=== PATIENT | female | born 1945 | race African-American/Black ===

== ENCOUNTER 2016-06-17 20:00 | Inpatient (IN) | payer MEDICARE, MEDICAID ==
[2016-06-17 19:52] VITALS: O2SAT 98
[~2016-06-17 20:00] MED LIST: ACET325 PO; CLON.1 PO; FERR220E PO; KEPP1000 PO; LISI-363 PO; LORA-474 PO; METO50 PO; PLAV75TA PO; POTA20PA PO; PRAV40TA2 PO; RANI150C PO; RISP0.252 PO
[2016-06-17] MEDS ORDERED: SODIUM CHLOR 0.9% 1000 ML INJ 1,000 ML IV ONE (20:05)
[2016-06-17 20:06] VITALS: BP 134/60; PULSE 91; RESP 18; TEMP 98.2; O2SAT 95
--- NOTE | 2016-06-17 20:25 | RADRPT ---
EXAM DATE/TIME: 06/17/2016 20:15 [facility] COMPARISON: No previous studies available for comparison. INDICATIONS : Stroke alert, aphasia today. RADIATION DOSE: 42.33 CTDIvol (mGy) This report was called by Dr. Young to [facility] at 8: 21 PM MEDICAL HISTORY : Stroke. Seizures. Hypertension. SURGICAL HISTORY : Non-responsive. ENCOUNTER: Initial ACUITY: 1 day PAIN SCALE: Non-responsive LOCATION: Bilateral head TECHNIQUE: Multiple contiguous axial images were obtained of the head. Using automated exposure control and adj ustment of the mA and/or kV according to patient size, radiation dose was kept as low as reasonably a chievable to obtain optimal diagnostic quality images. FINDINGS: CEREBRUM: Left middle cerebral artery distribution infarct with encephalomalacia and ex vacuo dilatation of the left lateral ventricle again noted, unchanged. No acute abnormality seen of the right cerebral hemis phere. No evidence of an acute ischemic event. No intracranial hemorrhage or hematoma. No mass or mas s effect. POSTERIOR FOSSA: The cerebellum and brainstem are intact. The 4th ventricle is midline. The cerebellopontine angle i s unremarkable. EXTRACRANIAL: The visualized portion of the orbits is intact. SKULL: The calvaria is intact. No evidence of skull fracture. CONCLUSION: No acute intracranial abnormality. Old left middle cerebral artery distribution infarct. Kye Young MD on June 17, 2016 at 20:21 Board Certified Radiologist. This report was verified electronically.
[2016-06-17 21:04] LABS: AUTOMATED NEUTROPHIL # 6.4 TH/MM3 (1.8-7.7); BASOPHIL # 0.1 TH/MM3 (0-0.2); BASOPHIL % 0.7 % (0.0-2.0); EOSINOPHIL # 0.4 TH/MM3 (0-0.4); EOSINOPHIL % 3.4 % (0.0-4.0); HEMATOCRIT 39.8 % (35.0-46.0); LYMPH % 35.8 % (9.0-44.0); LYMPHOCYTE # 4.3 TH/MM3 (1.0-4.8); MEAN CELL VOLUME 84.2 FL (80.0-100.0); MEAN CORPUSCULAR HEMOGLOBIN 27.2 PG (27.0-34.0); MEAN CORPUSCULAR HGB CONC 32.3 % (32.0-36.0); MONO % 6.7 % (0.0-8.0); NEUT % 53.4 % (16.0-70.0); PLATELET COUNT 90 TH/MM3 (150-450); RED BLOOD COUNT 4.73 MIL/MM3 (4.00-5.30); RED CELL DISTRIBUTION WIDTH 14.7 % (11.6-17.2)
[2016-06-17 21:06] LABS: BACTERIA, URINE RARE /hpf; BLOOD, URINE TRACE (NEG); GLUCOSE,URINE NEG (NEG); HYALINE CAST, URINE 10 /lpf (RARE); KETONE, URINE TRACE mg/dL (NEG); MUCUS URINE FEW /lpf (OCC); NITRITE,URINE NEG (NEG); PH, URINE 5.5 (5.0-8.5); SQUAMOUS EPITHELIAL CELL URINE 1 /hpf (0-5); URINE COLOR YELLOW (YELLW/STRAW)
[2016-06-17 21:09] LABS: AMPHETAMINE, URINE NEG (NEG); BARBITURATES, URINE NEG (NEG); COCAINE, URINE NEG (NEG)
[2016-06-17 21:11] LABS: HEMO FLAGS AUTO DIFF
[2016-06-17] MEDS ORDERED: PIPERACIL-TAZO 4.5 GM PREMIX 100 ML IV STA (21:12)
[2016-06-17 21:15] LABS: I-STAT POTASSIUM 4.7 MMOL/L (3.5-4.9)
[2016-06-17 21:23] VITALS: BP 111/63; PULSE 94; RESP 18; O2SAT 95
[2016-06-17 21:23] LABS: APTT (PATIENT) 22.4 SEC (24.3-30.1); INTERNATIONAL NORMALIZED RATIO 1.1 RATIO; PROTHROMBIN TIME - PATIENT 11.7 SEC (9.8-11.6)
--- NOTE | 2016-06-17 21:25 | PD ---
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 Apparently patient had been seen normal half an hour prior to EMS being called. She was less responsive than usual, left facial droop, not able to follow directions to do a left sided pronator drift. She has not able to give me a further history. Stroke alert was called on scene. Modifying Factors: None Associated Signs & Symptoms: Stroke alert, left facial droop, aphasic, not able to follow directions Risk Factors: Previous stroke PFSH Past Medical History Asthma: Yes Anxiety: Yes Depression: Yes Cancer: Yes (LEFT BREAST) Cardiovascular Problems: Yes Congestive Heart Failure: Yes Cerebrovascular Accident: Yes (INTRACRANIAL BLEED) Diminished Hearing: No Gastrointestinal Disorders: Yes (DYSPHAGIA-- GI BLEED) GERD: Yes Genitourinary: Yes Hypertension: Yes Implanted Vascular Access Dvce: Yes Insomnia: Yes Neurologic: Yes (Intracerebral bleed/Dyshpagia, DEPRESSIVE DISORDER, DYSPHAGIA) Psychiatric: Yes (SCHIZOAFFECTIVE D/O) Respiratory: Yes (Pleural Effusion) Schizophrenia: Yes Seizures: Yes Sleep Apnea: Yes (INSOMNIA W/SLEEP APNEA) Triglycerides - High: Yes ?: Not Menopausal: Yes : 3 Para: 3 Past Surgical History Abdominal Surgery: Yes (PREVIOUS PEG TUBE PLACEMENT) Body Medical Devices: PEG TUBE Pacemaker: No Other Surgery: Yes Social History Alcohol Use: No Tobacco Use: No (UNKNOWN) Substance Use: No Allergies-Medications (Allergen,Severity, Reaction): Coded Allergies: Aspirin (Verified Allergy, Severe, 06/17/16) *MDRO Multi-Drug Resistant Organism (Verified Allergy, Unknown, 06/17/16) MRSA Reported Meds & Prescriptions Reported Meds & Active Scripts Active Review of Systems ROS Limitations: Altered Mental Status, Speech Impaired Physical Exam Narrative GENERAL: Well-nourished, well-developed elderly -[place] female patient with right sided hemiplegia, nonverbal, disoriented SKIN: Warm and dry. HEAD: Normocephalic. Left facial droop notable. EYES: No scleral icterus. No injection or drainage. Pupils are equal, round, small, poorly reactive to light bilaterally. NECK: Supple, trachea midline. CARDIOVASCULAR: Regular rate and rhythm without murmurs, gallops, or rubs. RESPIRATORY: Breath sounds equal bilaterally. No accessory muscle use. GASTROINTESTINAL: Abdomen soft, non-tender, nondistended. MUSCULOSKELETAL: No cyanosis, or edema. BACK: Nontender without obvious deformity. No CVA tenderness. NEUROLOGICAL: Awake and an disoriented. Left facial droop. Not following commands. Data Data Last Documented VS Vital Signs Date Time Temp Pulse Resp B/P Pulse Ox O2 Delivery O2 Flow Rate FiO2 06/17/16 21:23 94 18 111/63 95 Nasal Cannula 2 06/17/16 20:06 98.2 Orders Diet Npo (06/18/16 Breakfast) Activity Bed Rest (06/17/16 ) Electrocardiogram (06/17/16 ) I-Stat Creatinine (06/17/16 20:05) I-Stat Profile (06/17/16 20:05) Prothrombin Time / Inr (Pt) (06/17/16 20:05) Act Partial Throm Time (Ptt) (06/17/16 20:05) Complete Blood Count With Diff (06/17/16 20:05) Fibrinogen (06/17/16 20:05) Creatine Kinase (Cpk) (06/17/16 20:05) Troponin I (06/17/16 20:05) Ua Includes Microscopic (06/17/16 20:05) Drug Screen, Random Urine (06/17/16 20:05) Type And Screen (06/17/16 20:05) Ct Brain W/O Iv Contrast(Rout) (06/17/16 ) Consult Neurology (06/17/16 ) Blood Glucose (06/17/16 20:05) Ecg Monitoring (06/17/16 20:05) Neuro Checks Q2HX12,Q4H (06/17/16 20:05) Nursing Bedside Swallow Assess .ONCE (06/17/16 20:05) Iv Access Insert/Monitor (06/17/16 20:05) NPO (06/17/16 20:05) Oximetry (06/17/16 20:05) Oxygen Administration (06/17/16 20:05) Sodium Chlor 0.9% 1000 Ml Inj (Ns 1000 M (06/17/16 20:05) Resp Oxygen Moe C Titrat 1-4 L (06/17/16 20:05) Cath For Specimen (06/17/16 20:05) (Hub Use Only)Inp Phy Cons/Ref (06/17/16 ) Lactic Acid (06/17/16 21:01) Piperacil-Tazo 4.5 Gm Premix (Zosyn 4.5 (06/17/16 21:12) Blood Culture (06/17/16 21:34) Labs Laboratory Tests Test 06/17/16 06/17/16 20:45 21:00 White Blood Count 12.0 TH/MM3 Red Blood Count 4.73 MIL/MM3 Hemoglobin 12.8 GM/DL Bedside Hemoglobin 13.6 G/DL Hematocrit 39.8 % Bedside Hematocrit 40.0 % Mean Corpuscular Volume 84.2 FL Mean Corpuscular Hemoglobin 27.2 PG Mean Corpuscular Hemoglobin 32.3 % Concent Red Cell Distribution Width 14.7 % Platelet Count 90 TH/MM3 Mean Platelet Volume 12.2 FL Neutrophils (%) (Auto) 53.4 % Lymphocytes (%) (Auto) 35.8 % Monocytes (%) (Auto) 6.7 % Eosinophils (%) (Auto) 3.4 % Basophils (%) (Auto) 0.7 % Neutrophils # (Auto) 6.4 TH/MM3 Lymphocytes # (Auto) 4.3 TH/MM3 Monocytes # (Auto) 0.8 TH/MM3 Eosinophils # (Auto) 0.4 TH/MM3 Basophils # (Auto) 0.1 TH/MM3 CBC Comment AUTO DIFF Differential Comment AUTO DIFF CONFIRMED Platelet Estimate LOW Platelet Morphology Comment NORMAL Prothrombin Time 11.7 SEC Prothromb Time International 1.1 RATIO Ratio Activated Partial 22.4 SEC Thromboplast Time Fibrinogen 324 mg/dL Urine Color YELLOW Urine Turbidity HAZY Urine pH 5.5 Urine Specific [place] 1.019 Urine Protein TRACE mg/dL Urine Glucose (UA) NEG mg/dL Urine Ketones TRACE mg/dL Urine Occult Blood TRACE Urine Nitrite NEG Urine Bilirubin NEG Urine Urobilinogen 2.0 MG/DL Urine Leukocyte Esterase MOD Urine RBC 6 /hpf Urine WBC 9 /hpf Urine WBC Clumps MOD Urine Squamous Epithelial 1 /hpf Cells Urine Bacteria RARE /hpf Urine Hyaline Casts 10 /lpf Urine Mucus FEW /lpf Microscopic Urinalysis Comment Bedside Sodium 166 MMOL/L Bedside Potassium 4.7 MMOL/L Bedside Chloride 132 MMOL/L Bedside Blood Urea Nitrogen 67 MG/DL Bedside Creatinine 4.3 MG/DL Bedside Glucose 97 MG/DL Total Creatine Kinase 173 U/L Troponin I 0.02 NG/ML Urine Opiates Screen NEG Urine Barbiturates Screen NEG Urine Amphetamines Screen NEG Urine Benzodiazepines Screen NEG Urine Cocaine Screen NEG Urine Cannabinoids Screen NEG Lactic Acid Level 2.1 mmol/L MDM Medical Screen Exam Complete: Yes Emergency Medical Condition: Yes Medical Record Reviewed: Yes EKG Prior to Arrival: No Differential Diagnosis Stroke alertcranial bleed versus CVA versus metabolic issues versus dehydration versus sepsis Narrative Course CAT scan was obtained, shows no signs of acute bleed but shows a large left MCA stroke. The findings have been discussed with Dr. Romano who states that based on patient's previous fashioning status, questionable baseline mental status, previous history of GI bleed, and a large stroke to begin with which is old, she is not a good TPA candidate. She has recommended by mouth aspirin with PPIs. However, patient has severe allergies to aspirin and this is documented with family as well. We would have to defer aspirin as well. Plavix was given instead of aspirin due to severe allergy. Patient does have a UTI and cultures were done and IV antibiotics given as a precaution. She has hypernatremia and IV fluids had also been given as part of previous protocol for stroke alert. At this point, my plan would be to admit the patient for further treatment and evaluation. Case is discussed with [facility] hospitalist for admission. Admitted under Dr. Bro's service. Case discussed with ARVIN Wyman. Stroke Alert NIHSS NIH Stroke Scale Result: 37 NIHSS Time Completed: 20:04 Thrombolytic Contraindications Contraindications Comment: Questionable baseline mental status, previous old right MCA stroke. Diagnosis Diagnosis: Primary Impression: CVA (cerebral vascular accident) Additional Impressions: Hypernatremia UTI (urinary tract infection) Admitting Physician Requests: Admit Jacob Sy MD Jun 17, 2016 21:25
[2016-06-17 21:51] LABS: PLATELET ESTIMATE SMEAR LOW (NORMAL); PLATELET MORPHOLOGY NORMAL (NORMAL); SCAN/DIFF AUTO DIFF CONFIRMED
[2016-06-17] MEDS ORDERED: LEVE100S PO (22:27)
[2016-06-17] MEDS ORDERED: HYDR25TA5 PO (22:27)
[2016-06-17] MEDS ORDERED: POTA10SO12 PO (22:27)
[2016-06-17] MEDS ORDERED: METO50TA PO (22:27)
[2016-06-17] MEDS ORDERED: PRAV20TA2 PO (22:27)
[2016-06-17] MEDS ORDERED: LISI-515 PEG (22:27)
[2016-06-17] MEDS ORDERED: LORA-373 PO (22:27)
[2016-06-17] MEDS ORDERED: CLON0.1T PEG (22:27)
[2016-06-17] MEDS ORDERED: LEVE500S PO (22:27)
[2016-06-17] MEDS ORDERED: MIRT1TAB PO (22:27)
[2016-06-17] MEDS ORDERED: TYLE325T PEG (22:27)
[2016-06-17] MEDS ORDERED: CLOPIDOGREL 300 MG TAB PO ONE (22:30)
[2016-06-17 22:31] VITALS: BP 108/55; PULSE 93; RESP 18; O2SAT 95
[2016-06-17] MEDS ORDERED: NALOXONE HCL 0.4 MG/ML AMP IV PRN (23:30)
[2016-06-17] MEDS ORDERED: ONDANSETRON HCL 4 MG/2 ML VIAL IVP PRN (23:30)
[2016-06-17] MEDS ORDERED: BISACODYL 10 MG SUPP PR PRN (23:30)
[2016-06-17] MEDS ORDERED: ACETAMINOPHEN 325 MG TAB PO PRN (23:30)
[2016-06-17] MEDS ORDERED: SENNOSIDES 8.6 MG TAB PO PRN (23:30)
[2016-06-18] VITALS (28 sets, daily range): BP systolic 104–160; BP diastolic 54–92; PULSE 84–108; RESP 13–18; TEMP 97.5–99; O2SAT 96–100
[2016-06-18] MEDS ORDERED: SODIUM CHLORIDE 0.9% FLUSH 5 ML FLUSH IVF PRN (00:30)
[2016-06-18] MEDS ORDERED: ETOMIDATE 20 MG/10 ML VIAL IVP ONE (00:30)
[2016-06-18] MEDS ORDERED: SUCCINYLCHOLINE CHLORIDE 200 MG/10 ML VIAL IVP ONE (00:30)
[2016-06-18] MEDS ORDERED: PROPOFOL 1000 MG/100 ML INJ 100 ML ONE (00:55)
[2016-06-18] MEDS ORDERED: PROPOFOL 1000 MG/100 ML INJ 100 ML IV SCH (01:00)
[2016-06-18] MEDS: PROPOFOL 1000 MG/100 ML INJ 100 ML IV SCH ×2 (01:04→21:01)
--- NOTE | 2016-06-18 01:11 | PD.CONS ---
[facility] Service Critical Care Medicine Consult Requested By Dr. Bro Reason for Consult Acute encephalopathy Possible CVA Acute respiratory failure Primary Care Physician Unknown History of Present Illness 70-year-old female alf patient with previous history of left MCA stroke with right sided hemiparesis, schizoaffective disorder, history of intracranial aneurysmal bleed, hypertension, seizure disorder, liver cirrhosis, dementia, who was brought to the ER today brought in by EMS as a stroke alert. Patient was found less responsive than usual, left facial droop, not able to follow directions. On arrival evaluated by ER physician Dr. Reeves. CT of the head showed no acute findings but large old left MCA stroke. The findings discussed with Dr. Romano who decided that patient is not a good TPA candidate. Patient was started on Plavix due to severe aspirin allergy. UA showed evidence of UTI and cultures were done and IV antibiotics were started in the ED. Lab work showed a white count of 12, lactic acid 2.1, sodium of 166 and a new acute renal failure with BUN 67 and creatinine 4.5. Patient has chronic renal insufficiency with a baseline creatinine highest at 1.3. Initially patient was admitted to [facility]. While in the ER patient' s mental status worsened and patient was intubated for airway protection I evaluated the patient in the ED. Her eyes are spontaneously open but do not follow commands right upper extremity is flaccid and patient has bilateral foot drop moves left upper extremity freely. Acute encephalopathy seems to be metabolic, secondary to her hyponatremia, renal failure and urosepsis Review of Systems ROS Limitations: Intubated Past Family Social History Allergies: Coded Allergies: Aspirin (Verified Allergy, Severe, 06/17/16) *MDRO Multi-Drug Resistant Organism (Verified Allergy, Unknown, 06/17/16) MRSA Past Medical History Brain aneurysm and intracranial bleed in January 2012 Previous left MCA stroke Dementia Chronic right hemiplegia Hypertension History of GI bleed Mastectomy for breast cancer in 2011 Seizure disorder History of CHF Dysphagia with PEG tube placement and subsequent removal Liver cirrhosis per previous notes Schizoaffective disorder Past Surgical History History of brain aneurysm and intracranial bleed Upper endoscopies Mastectomy for breast cancer in 2011 PEG tube placement and subsequent removal Reported Medications Tylenol when necessary Lisinopril Keppra Diazepam Lorazepam Metoprolol Clonidine Pravastatin Hydrochlorothiazide Potassium replacement Active Ordered Medications Reviewed Family History Not contributing to this admission Social History [facility] resident. No alcohol or tobacco use Physical Exam Vital Signs Vital Signs Date Time Temp Pulse Resp B/P Pulse Ox O2 Delivery O2 Flow Rate FiO2 06/18/16 00:41 35 06/18/16 00:40 100 35 06/18/16 00:20 99 15.00 100 06/18/16 00:20 97 21 06/18/16 00:10 91 18 125/60 96 Room Air 06/17/16 22:31 93 18 108/55 95 Nasal Cannula 2 06/17/16 21:23 94 18 111/63 95 Nasal Cannula 2 06/17/16 20:16 100 Nasal Cannula 2 06/17/16 20:06 98.2 91 18 134/60 95 Nasal Cannula 2 06/17/16 19:52 98 2.00 06/17/16 19:52 98 Nasal Cannula 2.00 Physical Exam GENERAL: Well-nourished, well-developed elderly -[place] female patient with right sided hemiplegia, now intubated on propofol SKIN: Warm and dry. HEAD: Normocephalic. EYES: Pupils are equal, round, reactive to light bilaterally. ENT: Orotracheally intubated NECK: Supple, trachea midline. CARDIOVASCULAR: Regular rate and rhythm without murmurs, gallops, or rubs. RESPIRATORY: Breath sounds equal bilaterally. No accessory muscle use. GASTROINTESTINAL: Abdomen soft, non-tender, nondistended. MUSCULOSKELETAL: No cyanosis, or edema. Bilateral foot drop NEUROLOGICAL: Intubated sedated with propofol. Eyes open spontaneously. Do not follow commands. Spontaneously moving left upper extremity, flaccid right upper extremity. Bilateral foot drop but withdraws to pain Laboratory Laboratory Tests Test 06/17/16 06/17/16 20:45 21:00 White Blood Count 12.0 Red Blood Count 4.73 Hemoglobin 12.8 Bedside Hemoglobin 13.6 Hematocrit 39.8 Bedside Hematocrit 40.0 Mean Corpuscular Volume 84.2 Mean Corpuscular Hemoglobin 27.2 Mean Corpuscular Hemoglobin 32.3 Concent Red Cell Distribution Width 14.7 Platelet Count 90 Mean Platelet Volume 12.2 Neutrophils (%) (Auto) 53.4 Lymphocytes (%) (Auto) 35.8 Monocytes (%) (Auto) 6.7 Eosinophils (%) (Auto) 3.4 Basophils (%) (Auto) 0.7 Neutrophils # (Auto) 6.4 Lymphocytes # (Auto) 4.3 Monocytes # (Auto) 0.8 Eosinophils # (Auto) 0.4 Basophils # (Auto) 0.1 CBC Comment AUTO DIFF Differential Comment AUTO DIFF CONFIRMED Platelet Estimate LOW Platelet Morphology Comment NORMAL Prothrombin Time 11.7 Prothromb Time International 1.1 Ratio Activated Partial 22.4 Thromboplast Time Fibrinogen 324 Urine Color YELLOW Urine Turbidity HAZY Urine pH 5.5 Urine Specific [place] 1.019 Urine Protein TRACE Urine Glucose (UA) NEG Urine Ketones TRACE Urine Occult Blood TRACE Urine Nitrite NEG Urine Bilirubin NEG Urine Urobilinogen 2.0 Urine Leukocyte Esterase MOD Urine RBC 6 Urine WBC 9 Urine WBC Clumps MOD Urine Squamous Epithelial 1 Cells Urine Bacteria RARE Urine Hyaline Casts 10 Urine Mucus FEW Microscopic Urinalysis Comment Bedside Sodium 166 Bedside Potassium 4.7 Bedside Chloride 132 Bedside Blood Urea Nitrogen 67 Bedside Creatinine 4.3 Bedside Glucose 97 Total Creatine Kinase 173 Troponin I 0.02 Urine Opiates Screen NEG Urine Barbiturates Screen NEG Urine Amphetamines Screen NEG Urine Benzodiazepines Screen NEG Urine Cocaine Screen NEG Urine Cannabinoids Screen NEG Lactic Acid Level 2.1 Blood Type O POSITIVE Antibody Screen NEGATIVE Date/Time Procedure Status Source Growth 06/17/16 21:00 Aerobic Blood Culture Received Blood Peripheral Pending 06/17/16 21:00 Anaerobic Blood Culture Received Blood Peripheral Pending Result Diagram: 06/17/162044 Imaging CT head shows an old MCA stroke Septic Shock Reassessment Heart: Other (tachycardic) Lungs: Clear Skin: Warm, Dry Peripheral Pulses: Bounding Right Radial Bounding Left Radial Assessment and Plan Assessment and Plan NEURO: Acute metabolic encephalopathy Probable acute stroke History of left MCA stroke with right hemiparesis History of intracranial aneurysm and bleed Seizure disorder -CT of the head negative for acute findings, check MRI of the brain -Check EEG, continue Keppra -Metabolic encephalopathy most likely secondary to hypernatremia and sepsis, but differential also include CVA versus subclinical seizures -Plavix started as the patient is allergic to aspirin RESP: Acute respiratory failure -Intubated for airway protection -Assist control mechanical ventilation, ventilator bundle -DuoNeb every 6 hours when necessary -Broad spectrum antibiotics with cefepime and Flagyl to cover for aspiration CV: History of hypertension -Hold home hypertensive medications lisinopril metoprolol and clonidine at this time -Due to possible acute stroke, keep systolic blood pressure >160 -D5W 2 L bolus and 150 ML per hour GI: History of GI bleed History of Lorraine-Jaimes tear Liver cirrhosis -Nothing by mouth, start tube feeds in 24 hours -IV Protonix, Colace : Acute kidney failure Chronic kidney insufficiency Hypernatremia -Monitor renal function closely. Place Rosales catheter. -D5W 2 L bolus and 150 ML per hour -Free water replacement 300 mL every 6 hours -Renal US ID: Sepsis UTI -Empiric cefepime and Flagyl -Follow up on blood urine and sputum cultures HEME: Mild thrombocytopenia -Monitor CBC, CMP, coags ENDO: Hypernatremia -Electrolyte replacement protocol, sliding scale insulin if needed -Free water replacement as above PROPH: -Bilateral lower extremity SCDs. IV Protonix, subcutaneous heparin LINES: -Utilize peripheral IVs, central line if needed CC time 60 min Code Status Full Discussed Condition With Daquan Brandt MD Jun 18, 2016 01:11
[2016-06-18] MEDS ORDERED: RESP: ALBUTEROL 2.5 MG/IPRATROPIUM 0.5 MG NEB (PRN) NEB (01:15)
[2016-06-18] MEDS: PANTOPRAZOLE SODIUM 40 MG VIAL IV PUSH SCH (01:34)
--- NOTE | 2016-06-18 01:40 | RADRPT ---
EXAM DATE/TIME: 06/18/2016 01:19 [facility] COMPARISON: CHEST SINGLE AP, February 01, 2013, 2:58. INDICATIONS : Post intubation. MEDICAL HISTORY : None. SURGICAL HISTORY : None. ENCOUNTER: Initial ACUITY: 1 day PAIN SCORE: Non-responsive. LOCATION: Bilateral chest FINDINGS: ET tube, NG tube, and right subclavian [id number] are in good position. The heart size is normal. The lungs are grossly clear. Clips are seen in the left axillary region. Old left rib fractures are s een. CONCLUSION: ET tube in good position. Kye Montiel MD on June 18, 2016 at 1:37 Board Certified Radiologist. This report was verified electronically.
[2016-06-18] MEDS ORDERED: DEXTROSE 5% IN WATE 1000ML INJ 1,000 ML IV ONE (02:15)
[2016-06-18] MEDS: PIPERACIL-TAZO 3.375 GM PREMIX 50 ML IV SCH ×4 (03:00→21:01)
[2016-06-18 03:35] LABS: AUTOMATED NEUTROPHIL # 6.4 TH/MM3 (1.8-7.7); BASOPHIL # 0.1 TH/MM3 (0-0.2); BASOPHIL % 0.7 % (0.0-2.0); EOSINOPHIL # 0.5 TH/MM3 (0-0.4); EOSINOPHIL % 3.8 % (0.0-4.0); HEMATOCRIT 38.8 % (35.0-46.0); LYMPH % 39.2 % (9.0-44.0); LYMPHOCYTE # 4.8 TH/MM3 (1.0-4.8); MEAN CORPUSCULAR HGB CONC 32.9 % (32.0-36.0); MONO % 4.6 % (0.0-8.0); NEUT % 51.7 % (16.0-70.0); PLATELET COUNT 83 TH/MM3 (150-450); RED BLOOD COUNT 4.57 MIL/MM3 (4.00-5.30); WHITE BLOOD COUNT 12.3 TH/MM3 (4.0-11.0)
[2016-06-18 03:36] LABS: HEMO FLAGS AUTO DIFF
--- NOTE | 2016-06-18 03:44 | RADRPT ---
EXAM DATE/TIME: 06/18/2016 02:28 [facility] COMPARISON: CT BRAIN W/O CONTRAST, February 01, 2013, 3:09. CT BRAIN W/O CONTRAST, June 17, 2016, 20:15. MRI BRAIN W/O CONTRAST, February 03, 2012, 11:22. INDICATIONS : Altered mental status. Stroke alert MEDICAL HISTORY : Large left MCA stroke previously SURGICAL HISTORY : None. ENCOUNTER: ACUITY: 1 day PAIN SCORE: 0/10 LOCATION: cranial TECHNIQUE: Multiplanar, multisequence MRI of the brain was performed without contrast. FINDINGS: CEREBRUM: The left lateral ventricle is very prominently expanded. There is increased signal seen throughout th e left frontal, left parietal, and much of the left temporal lobe on the flair and T2-weighted images . There is extensive encephalomalacia on the left side especially in the parietal lobe. There is mild increased signal at the left temporal lobe on the diffusion weighted images likely related to T2 maricel ne through phenomenon.. An acute infarction is not clearly seen. No evidence of midline shift, mass l esion, hemorrhage or acute infarction. There is increased signal in the right periventricular white m atter likely related to underlying small vessel ischemic demyelination. No extraaxial fluid collectio ns are seen. There are several focal areas of low signal seen throughout the cerebral hemispheres bi laterally on the SWI images which may represent prior areas of hemorrhage. A prominent area of increa sed signal in the left parietal lobe is likely related to the prior infarct and old petechial hemorrh age. The more focal areas may relate to underlying lesions such as angiomas. An acute area of hemorrh age is not present. The pituitary gland and suprasellar cistern are normal in configuration. POSTERIOR FOSSA: The cerebellum and brainstem are intact. The 4th ventricle is midline. The cerebellopontine angle is unremarkable. The cerebellar tonsils are normal in position. DIFFUSION IMAGING: No focal areas of restricted diffusion are seen. No evidence of acute infarction. EXTRACRANIAL: The visualized portions of the orbits and paranasal sinuses are unremarkable. CONCLUSION: 1. Widespread encephalomalacia throughout the left cerebral hemisphere. An area of acute infarction i s not clearly seen. There is very prominent expansion of the left lateral ventricle. 2. Suspected underlying small vessel ischemic change in the white matter on the right hemisphere. 3. Areas of signal abnormality on the SWI images related to prior areas of hemorrhage. No acute hemor rhage is seen. Kye Montiel MD on June 18, 2016 at 3:36 Board Certified Radiologist. This report was verified electronically.
--- NOTE | 2016-06-18 03:45 | RADRPT ---
EXAM DATE/TIME: 06/18/2016 02:28 [facility] COMPARISON: No previous studies available for comparison. INDICATIONS : Altered mental status. Stroke alert. MEDICAL HISTORY : Large left MCA stroke previously SURGICAL HISTORY : None. ENCOUNTER: Initial ACUITY: 1 day PAIN SCORE: 0/10 LOCATION: cranial Please note a normal MRA of the brain does not entirely exclude the possibility of a small aneurysm, nor the possibility of distal intracranial vessel disease. TECHNIQUE: 3D time of flight MRA was performed. Source images, multiplanar STS MIP, and 3D volume MIP reconstru ctions were reviewed. FINDINGS: There is excellent visualization of the major intracranial arteries out to the second-order branch ve ssels. There is no evidence for aneurysm, vessel truncation or stenosis, and no evidence for vascula r malformation. There is diminished flow in the left middle cerebral artery distribution seen at the M2 level and beyond. CONCLUSION: No acute areas of occlusion. There is asymmetric and diminished flow in the more distal left middle c erebral artery territory. Kye Montiel MD on June 18, 2016 at 3:43 Board Certified Radiologist. This report was verified electronically.
[2016-06-18] MEDS: metroNIDAZOLE 500 MG INJ 100 ML IV SCH ×3 (03:50→17:19)
[2016-06-18] MEDS ORDERED: CEFEPIME INJ 2,000 MG in SODIUM CHLORIDE 0.9% INJ 100 ML IV SCH ×4 (04:00)
[2016-06-18 04:22] LABS: PLATELET ESTIMATE SMEAR LOW (NORMAL); SCAN/DIFF AUTO DIFF CONFIRMED
[2016-06-18 04:23] LABS: PLATELET MORPHOLOGY ENLARGED (NORMAL)
[2016-06-18 04:32] LABS: ALKALINE PHOSPHATASE 76 U/L (45-117); ALT (GPT) 28 U/L (10-53); ANION GAP 10 MEQ/L (5-15); BICARBONATE 23.7 MEQ/L (21.0-32.0); CHLORIDE 123 MEQ/L (98-107); GLOMERULAR FILTRATION RATE 13 ML/MIN (>89); TOTAL BILIRUBIN ADULT 1.3 MG/DL (0.2-1.0)
[2016-06-18 04:50] LABS: BLOOD GAS BASE EXCESS -3.1 mmol/L (-2-2); BLOOD GAS CARBOXYHEMOGLOBIN 1.8 % (0-4); BLOOD GAS HCO3 20 mmol/L (22-26); BLOOD GAS METHEMOGLOBIN 2.4 % (0-2); BLOOD GAS O2 HGB SATURATION 95 % (90-100); BLOOD GAS OXYGEN CONTENT 17.4 Vol % (12.0-20.0); BLOOD GAS PCO2 26 mmHg (38-42); BLOOD GAS PO2 123 mmHG (61-120); BLOOD GAS TOTAL HGB 12.9 G/DL (12.0-16.0); CRITICAL VALUE NO; OXYGEN DEVICE VENTILATOR; TEMP CORR TO 98.6
[2016-06-18 04:51] LABS: DRAW SITE LT RADIAL; FIO2 35 %; NUMBER OF ARTERIAL PUNCTURES 1; STAT NO; ULNAR PULSE PRESENT; VENT SETTINGS VAC16/500/PEEP5
[2016-06-18 04:56] LABS: BLOOD UREA NITROGEN 69 MG/DL (7-18)
[2016-06-18 04:58] LABS: AST (GOT) 48 U/L (15-37); POTASSIUM 4.7 MEQ/L (3.5-5.1)
[2016-06-18 04:59] LABS: SODIUM (NA) 157 MEQ/L (136-145)
[2016-06-18] MEDS: DEXTROSE 5% IN WATE 1000ML INJ 1,000 ML IV SCH ×4 (05:50→21:02)
[2016-06-18] MEDS: FREE WATER OG SCH ×3 (05:50→17:19)
[2016-06-18] MEDS ORDERED: CHLORHEXIDINE GLUCONATE 2 % 1 PACK (2 CLOTHS)(extra cloths) TOP PRN (06:30)
[2016-06-18] MEDS: CHLORHEXIDINE 0.12% (ORAL KIT) 15 ML CUP MT SCH ×2 (08:00→21:01)
[2016-06-18] MEDS: DOCUSATE SODIUM 100 MG/10 ML UDC PO SCH ×2 (09:00→21:01)
[2016-06-18] MEDS: SODIUM CHLORIDE 0.9% FLUSH 5 ML FLUSH FLUSH SCH ×2 (09:00→21:00)
[2016-06-18] MEDS: PRAVASTATIN SOD 20 MG TAB PO SCH (09:00)
[2016-06-18] MEDS ORDERED: levETIRAcetam 500 MG/5 ML UDC PO SCH ×2 (09:00→21:00)
[2016-06-18] MEDS: LACTULOSE SYRUP 20 GM/30 ML CUP PO SCH ×2 (09:15→21:01)
--- NOTE | 2016-06-18 09:16 | RADRPT ---
EXAM DATE/TIME: 06/18/2016 07:56 [facility] COMPARISON: No previous studies available for comparison. INDICATIONS : Cerebrovascular accident. MEDICAL HISTORY : Cerebrovascular disease. Hypercholesterolemia. Gastroesophageal reflux disease. Intracranial bleed. Dyshpagia. Seizures. Congestive heart failure. Hypertension. Pleural effusion. Asthma. Sleep apnea. I nflammatory bowel disease. Cirrhosis. Left breast cancer. MRSA. SURGICAL HISTORY : Peg tube placement. Left breast mastoectomy. ENCOUNTER: Initial ACUITY: 1 day PAIN SCORE: Nonresponsive. LOCATION: Bilateral neck PEAK SYSTOLIC VELOCITIES (cm/sec): ICA/CCA RATIO: Right: 1.3 Left: 0.7 ICA: Right: 96 Left: 59 CCA: Right: 74 Left: 82 ECA: Right: 55 Left: 86 VERTEBRAL: Right: 39 antegrade Left: 92 antegrade Elevated flow velocities and ICA/CCA ratios have been found to correlate with increased degrees of vessel stenosis, calculated as percentage of diameter relative to a normal segment of distal ICA/CCA FINDINGS: RIGHT CAROTID: Severe plaque in the proximal right ICA. The waveforms are within normal limits. LEFT CAROTID: No significant stenosis is visualized. [id number] plaque. The waveforms are within normal limi ts. VERTEBRAL ARTERIES: Antegrade flow is seen in both vertebral arteries. MISCELLANEOUS: None. CONCLUSION: 1. Severe plaque in the right proximal right internal carotid artery but no hemodynamically significa nt stenosis identified. May consider a carotid CTA to ensure no significant stenosis. 2. No significant stenosis in the left carotid artery. Gideon De La Fuente MD on June 18, 2016 at 9:11 Board Certified Radiologist. This report was verified electronically.
--- NOTE | 2016-06-18 09:18 | RADRPT ---
EXAM DATE/TIME: 06/18/2016 08:15 [place] COMPARISON: No previous studies available for comparison. INDICATIONS : Increased BUN/Creatinine. MEDICAL HISTORY : Cerebrovascular disease. Gastroesophageal reflux disease. Hypercholesterolemia. Intracranial bleed. Dyshpagia. Seizures. Congestive heart failure. Hypertension. Pleural effusion. Asthma. Sleep apnea. I nflammatory bowel disease. Cirrhosis. Left breast cancer. MRSA. SURGICAL HISTORY : Peg tube placement. Left mastectomy. ENCOUNTER: Initial ACUITY: 1 day PAIN SCORE: Nonresponsive. LOCATION: Bilateral flank MEASUREMENTS: RIGHT KIDNEY: 8.8 x 3.2 x 3.6 cm LEFT KIDNEY: 9.6 x 5.5 x 4.8 cm FINDINGS: RIGHT KIDNEY: Renal cortex is thinned in thickness and increased echotexture. No hydronephrosis, stone, or mass. LEFT KIDNEY: Renal cortex is normal in thickness and increased echotexture. No hydronephrosis, stone, or mass. BLADDER: Decompressed by Roasles catheter. CONCLUSION: 1. Increased echogenicity which can be seen with medical renal disease. Right kidney is slightly smal l in size. 2. Urinary bladder is decompressed by Rosales catheter. Gideon De La Fuente MD on June 18, 2016 at 9:16 Board Certified Radiologist. This report was verified electronically.
--- NOTE | 2016-06-18 09:23 | HHI.CCPN ---
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 Patient was found less responsive than usual, left facial droop, not able to follow directions. On arrival evaluated by ER physician Dr. Reeves. CT of the head showed no acute findings but large old left MCA stroke. The findings discussed with Dr. Romano who decided that patient is not a good TPA candidate. Patient was started on Plavix due to severe aspirin allergy. UA showed evidence of UTI and cultures were done and IV antibiotics were started in the ED. Lab work showed a white count of 12, lactic acid 2.1, sodium of 166 and a new acute renal failure with BUN 67 and creatinine 4.5. Patient has chronic renal insufficiency with a baseline creatinine highest at 1.3. Initially patient was admitted to [facility]. While in the ER patient' s mental status worsened and patient was intubated for airway protection I evaluated the patient in the ED. Her eyes are spontaneously open but do not follow commands right upper extremity is flaccid and patient has bilateral foot drop moves left upper extremity freely. Acute encephalopathy seems to be metabolic, secondary to her hyponatremia, renal failure and urosepsis Subjective 06/18: Afebrile. Arousable on the ventilator currently receiving peripheral IVs. Rosales placed with adequate urine output Objective Vital Signs Date Time Temp Pulse Resp B/P Pulse Ox O2 Delivery O2 Flow Rate FiO2 06/18/16 08:15 100 35 06/18/16 06:00 108 06/18/16 05:43 99.0 13 132/69 06/18/16 05:02 Room Air 06/18/16 00:20 15.00 Result Diagram: 06/18/16 0321 06/18/16 0321 Other Results Microbiology Date/Time Procedure Status Source Growth 06/17/16 21:00 Aerobic Blood Culture Received Blood Peripheral Pending 06/17/16 21:00 Anaerobic Blood Culture Received Blood Peripheral Pending 06/17/16 20:45 Urine Culture Received Urine Catheterized Urine Pending Imaging Last Impressions Brain MRI 06/18/16 0102 Signed Impressions: Service Date/Time: Saturday, June 18, 2016 02:28 - CONCLUSION: 1. Widespread encephalomalacia throughout the left cerebral hemisphere. An area of acute infarction is not clearly seen. There is very prominent expansion of the left lateral ventricle. 2. Suspected underlying small vessel ischemic change in the white matter on the right hemisphere. 3. Areas of signal abnormality on the SWI images related to prior areas of hemorrhage. No acute hemorrhage is seen. Kye Montiel MD Chest X-Ray 06/18/16 0044 Signed Impressions: Service Date/Time: Saturday, June 18, 2016 01:19 - CONCLUSION: ET tube in good position. Kye Montiel MD Head Magnetic Resonance Angiography 06/18/16 0000 Signed Impressions: Service Date/Time: Saturday, June 18, 2016 02:28 - CONCLUSION: No acute areas of occlusion. There is asymmetric and diminished flow in the more distal left middle cerebral artery territory. Kye Montiel MD Head CT 06/17/16 0000 Signed Impressions: Service Date/Time: Friday, June 17, 2016 20:15 - CONCLUSION: No acute intracranial abnormality. Old left middle cerebral artery distribution infarct. Kye Young MD Objective Remarks GENERAL: 70-year-old well-nourished, well-developed elderly -Iraqi female patient with right sided hemiplegia SKIN: Warm and dry. No rash HEAD: Normocephalic. EYES: Pupils are equal, round, reactive to light bilaterally around 3 mm. ENT: Orotracheally intubated NECK: Supple, trachea midline. CARDIOVASCULAR: Regular rate and rhythm S1, S2. No S4. Without murmurs, gallops, or rubs. RESPIRATORY: Breath sounds equal bilaterally. No accessory muscle use. GASTROINTESTINAL: Abdomen soft, non-tender, nondistended. Hypoactive bowel sounds MUSCULOSKELETAL: No new skin peripheral edema. Bilateral foot drop NEUROLOGICAL: Intubated sedated with propofol. Eyes open spontaneously. Do not follow commands. Spontaneously moving left upper extremity, flaccid right upper extremity. Bilateral foot drop but withdraws to pain A/P Assessment and Plan NEURO/PSYCH: Acute metabolic encephalopathy Probable acute stroke History of left MCA stroke with right hemiparesis History of intracranial aneurysm and bleed Seizure disorder Dementia disorder NOS Schizoaffective disorder History bilateral foot drop Depression -CT of the head negative for acute findings, - MRI of the brain revealed extensive encephalomalacia left side including the frontal, parietal and temporal regions. No signs of acute CVA. MRA brain showedno focal signs of stenosis but decreased blood flow in the left MCA distribution -Check EEG, -continue Keppra 250 twice a day with 500 mg at night/home dosage -Metabolic encephalopathy most likely secondary to hypernatremia and sepsis, but differential also include CVA versus subclinical seizures -Plavix 75 mg daily started as the patient is allergic to aspirin RESP: Acute respiratory failure History of a sore sleep apnea -Assist control mechanical ventilation / -Ventilator bundle -DuoNeb every 6 hours when necessary -Spontaneous breathing trials daily -Broad spectrum antibiotics with Zosyn and Flagyl to cover for aspiration CV: Right proximal internal carotid artery plaque not hemodynamic significant Recommended CTA neck when appropriate Atherosclerotic vascular disease History of hypertension Dyslipidemia Chronic diastolic heart failure ejection fraction 55% 2012 -Hold home hypertensive medications lisinopril 20 mg twice a day and clonidine 0.1 mg twice a day at this time Lopressor 2.5 IV every 6/on metoprolol 100 mg twice a day at home. -Due to possible acute stroke, goal ideally keep systolic blood pressure >160 -D5W 2 L bolus and 150 ML per hour Continue pravastatin at 20 mg by mouth daily GI: History of GI bleed History of Lorraine-Jaimes tear Liver cirrhosis Hypoalbuminemia Gastro-Esophageal reflux disease Hiatal hernia History of esophagitis Elevated ammonia -Nothing by mouth, start tube feeds in 24 hours -IV Protonix, Colace Lactulose 3 cc twice a day. Recheck in a.m. RENAL//FEN: Acute kidney failure Chronic kidney insufficiency baseline creatinine about 1.1 Hypernatremia -Monitor renal function closely. Place Rosales catheter. -D5W 2 L bolus and 150 ML per hour -Free water replacement 300 mL every 6 hours -Renal US revealed medical renal disease right kidney. Normal left kidney. No hydronephrosis. -Urine electrolyte/eosinophils pending ID: Sepsis UTI -Empiric Zosyn and Flagyl a #2 -Follow up on blood urine and blood cultures HEME: Mild thrombocytopenia Leukocytosis -Monitor CBC, CMP, coags ENDO: Hypernatremia - likely medication Low TSH -Electrolyte replacement protocol, sliding scale insulin if needed -Free water replacement as above -Check urine and serum osmolality for hyponatremia Check free T3 and T4 for low TSH PROPH: -Bilateral lower extremity SCDs. IV Protonix, subcutaneous heparin LINES: -Utilize peripheral IVs, central line if needed Critical Care: The total critical care time was 35 minutes. Time to perform other separately billable procedures was not included in the critical care time. Hosea Gonzalez MD Jun 18, 2016 09:23
[2016-06-18] MEDS: METOPROLOL TARTRATE 5 MG/5 ML VIAL IV PUSH SCH ×3 (10:51→21:02)
[2016-06-18] MEDS: HEPARIN SODIUM - SQ 10,000 UNITS/ML VIAL SQ SCH ×2 (10:51)
[2016-06-18] MEDS: CLOPIDOGREL 75 MG TAB PO SCH (10:52)
--- NOTE | 2016-06-18 12:15 | MB ---
cc: BENI GRIFFITH DATE OF CONSULTATION 06/18/2016 REASON FOR CONSULTATION Stroke alert/encephalopathy/TIA. HISTORY OF PRESENT ILLNESS Ms. Childress is a 70-year-old -Algerian female who [facility] prison with a previous history of left MCA ischemic stroke and residual right-sided hemiparesis, schizoaffective disorder, history of intracranial aneurysmal bleed, hypertension, seizure disorder, liver cirrhosis, dementia. During the encounter the patient is sedated and intubated, hence the medical information is obtained from the medical records. She was brought to the ER yesterday night as a Stroke Alert. The patient was found in the prison less responsive than usual with a left-sided facial droop and not able to follow any direction. Upon arrival to the ER, head CT without contrast did showed no acute intracranial findings but large old left MCA infarct. Dr. Romano, who was education managers last night, decided that the patient is not a good IV t-PA candidate.The patient was started on Plavix due to SEVERE ASPIRIN ALLERGY. On review of the lab work, UA showed evidence of UTI. IV antibiotics started. White blood cells 12, lactic acid 2.1. Sodium was elevated at 166, today is 157; BUN 69, creatinine 4.09. Urine tox was negative. During the encounter the patient was intubated and sedated. REVIEW OF SYSTEMS Unable to obtain. The patient is intubated. PAST MEDICAL HISTORY As per medical records - 1. Brain aneurysm with intracranial bleed in 2011. 2. Previous left MCA ischemic stroke. 3. Dementia. 4. Hypertension. 5. History of GI bleed. 6. Mastectomy for breast cancer in 2011. 7. Seizure disorder. 8. History of congestive heart failure. 9. Dysphagia with PEG tube and subsequent removal. 10. Liver cirrhosis. 11. Schizoaffective disorder. PAST SURGICAL HISTORY As per medical records - 1. Brain aneurysm, intracranial bleed. 2. Endoscopies. 3. Mastectomy for breast cancer in 1011. 4. PEG tube and subsequently removal. MEDICATIONS 1. Tylenol. 2. Lisinopril. 3. Keppra. 4. Diazepam. 5. Lorazepam. 6. Metoprolol. 7. Clonidine. 8. Pravastatin. 9. Hydrochlorothiazide. 10. Potassium. FAMILY HISTORY Unable to obtain. SOCIAL HISTORY correction resident. As per records, no alcohol or tobacco use. PHYSICAL EXAMINATION GENERAL: The patient is intubated and sedated. A well-developed -Algerian patient HEENT: Atraumatic, normocephalic. Pupils are pink, bilaterally equal to light. CARDIOVASCULAR: Regular rhythm and rate. No murmurs. RESPIRATORY: Bilaterally equal breath sounds. No wheezes. MUSCULOSKELETAL: No cyanosis or edema. Bilateral foot drop with flexion contractures. NEUROLOGICAL: Intubated and sedated. Pupils are bilaterally 3 mm, reacting briskly to light. No gaze deviation. Bilateral foot drop with flexion contracture, left greater than the right. Plantars are bilaterally downgoing. No response to verbal commands or painful commands.No spontaneous eye opening. LABORATORY DATA WBC 12.3, hemoglobin 12.8, platelets 83. Urine toxicology negative. Serum sodium 157, chloride 123, BUN 69, creatinine 409, lactic acid 2.1, calcium 7.9, albumin 2.9.TSH 0.02. Urine positive for ketones, occult blood, leukocyte esterase, RBCs, white blood cells, rare bacteria. DIAGNOSTIC IMAGING - Head CT scan without contrast with no acute intracranial abnormality. Old left MCA distribution infarct. - Brain MRI with widespread encephalomalacia throughout the left cerebral hemisphere. An area of acute infarction is not clearly seen. There is very prominent expansion of the left lateral ventricle, suspected underlying small vessel ischemic change in white matter in the right hemisphere, areas of signal abnormality on the SWI images related to prior areas of hemorrhage. No acute hemorrhage is seen. - Head MRA - No acute areas of occlusion. There is asymmetric and diminished flow in the more distal left MCA. - Carotid Ultrasound - There is severe plaque in the proximal right ICA but no hemodynamically significant stenosis. May consider carotid CTA to ensure no significant stenosis. No significant stenosis of the left ICA. DIAGNOSTIC IMPRESSION 1. Acute encephalopathy. 2. Remote history of left MCA stroke with residual right-sided weakness. 3. Remote bilateral foot drop. 4. History of intracranial aneurysm and bleed. 5. Seizure disorder. 6. Dementia. 7. Right ICA stenosis. PLAN 1. Neuro checks q. one hourly. 2. Plavix 75 mg daily. 3. EEG. 4. Keppra level. 5. Continue Keppra home dose at 250 morning and 750 at night. I will review the dose and may adjust it based on the Keppra level and EEG findings. 6. SCD prophylaxis. 7. GI prophylaxis. 8. Correction of hypernatremia. Thank you for the opportunity to participate in the care of your patient. Beni Griffith MD RGO/SSB /9:21 AM /12:01 PM [facility]
--- NOTE | 2016-06-18 15:33 | MH ---
cc: SERJIO PEARL MD DATE OF ADMISSION: 06/17/2016 DATE OF : 1945 REASON FOR ADMISSION Possible stroke, altered mental status. HISTORY OF PRESENT ILLNESS This is an unfortunate 70-year-old black female who is a current [facility] resident, who noted in the record has a history of a large MCA stroke with right-sided hemiparesis. The patient also has co-morbidities such as schizoaffective disorder and COPD. The patient was noted per the [facility] staff to have a possible new left facial droop and appeared to be less responsive than she usually is. At the time EMS got to her she was unable to follow directions and had a left-sided pronator drift. All this information is according to the medical record. Currently the patient is in the intensive care setting. She is managed on mechanical ventilation and sedation. There is no family present, although the staff states that her daughter came this morning to see her mother. PAST MEDICAL HISTORY 1. Asthma. 2. Anxiety. 3. Depression. 4. Left breast cancer. 5. Cardiovascular disease. 6. Congestive heart failure. 7. CVA with intracranial bleed. 8. GI bleed. 9. Dysphagia. 10.GERD. 11.Hypertension. 12.Insomnia. 13.Depressive disorder. 14.Schizoaffective disorder. 15.Pleural effusions. 16.Sleep apnea. 17.Hyperlipidemia. PAST SURGICAL HISTORY PEG tube placement. Unknown any other surgeries. ALLERGIES 1. MULTIDRUG RESISTANT ORGANISM. 2. ASPIRIN. SOCIAL HISTORY Unknown for tobacco, alcohol or illicit drug use. FAMILY HISTORY NA. MEDICATIONS 1. Lisinopril. 2. Keppra. 3. Mirtazapine. 4. Ativan. 5. Metoprolol. 6. Clonidine. 7. Pravastatin. 8. Potassium replacement. 9. Hydrochlorothiazide. REVIEW OF SYSTEMS Unable to obtain secondary to the patient's sedation and altered mental status. PHYSICAL EXAMINATION VITAL SIGNS: Temperature 98, pulse between 101 and 108, tachycardic, respirations 16, currently on ventilator management, blood pressure 141/77. FIO2 45% this a.m., now decreased at 35%. Pulse ox is 100. GENERAL: A thin elderly black female who looks older than her stated age, sedated. SKIN: Thin turgor. Warm and dry. HEENT: Atraumatic. Sunken fontanelles. Left facial droop. Pupils are sluggish, equal and round, 1 mm, cataracts. Pale mucous membranes. Orally she has an ET tube which is taped and secured. NECK: Thin and supple. CARDIOVASCULAR: Distant heart sounds but no audible murmurs, rubs or gallops. PULMONARY: Her respirations are equal without struggle. Decreased breath sounds posteriorly in her bases. No rhonchi. No wheezing. ABDOMEN: Flat, soft, nontender. Hypoactive bowel sounds. NG tube in place. EXTREMITIES: No edema. NEUROLOGIC: She is not obeying any commands partially secondary to her sedation. LABORATORY DATA WBC count 12.3, RBC 4.57, hemoglobin 12.8, hematocrit 38.8, platelet count 83. INR 1.1. Fibrinogen 324. Sodium 162, potassium 4.7, chloride 123, anion gap 10, carbon dioxide 23.7, BUN 69, creatinine 4.09, random glucose 136, serum osmolality 370, lactic acid 2.1, calcium 7.9, ammonia 55, total protein 8.1, albumin 2.9. Vitamin B12 748. TSH 0.020. Urine: Yellow, hazy, pH 5.5, specific gravity 1.010, trace of protein, negative glucose, trace ketones, occult blood, moderate amount of leukocyte esterase with moderate amount of WBC clumps, rare bacteria, few mucus. Nasal MRSA screen is negative. IMAGING DATA Renal ultrasound: Medical renal disease. Right kidney is slightly small in size. Bladder is decompressed by the Rosales catheter. Brain MRI: Widespread encephalomalacia throughout her left cerebral hemisphere. An area of acute infarct is not clearly seen. Prominent expansion of the left lateral ventricle, suspect underlying small vessel ischemic changes. Areas of abnormal signal seen on SWI images related to prior areas of hemorrhage. No acute hemorrhage is seen. Carotid ultrasound: No significant stenosis. Chest x-ray: ET tube in good position. Head MRA: No acute areas of occlusion. Asymmetric and diminished flow to the left middle cerebral arterial artery territory. CT of the head: No acute intracranial abnormality. Old left middle cerebral artery infarct. ASSESSMENT 1. Altered mental status with acute respiratory failure. 2. CVA. 3. Hypernatremia. 4. UTI. 5. Acute kidney failure with chronic renal disease. 6. Leukocytosis. 7. Thrombocytopenia. 8. Lactic acid sepsis, which could be secondary to her UTI. PLAN Our plan is to maintain her in the ICU. She is intubated currently on the ventilator. Today her FIO2 has been weaned down to 35%. Her breath sounds are equal and aerating well. We will monitor her labs as well as her vital signs and treat any abnormals. Currently the patient is afebrile but she tachycardic, probably secondary to this acute respiratory event and her increased sodium level. Blood pressure is stable at 141/77. We will follow her multiple medical needs and attempt to reach out to the daughter for any updates needed. Currently to my knowledge the patient is a full code, full aggressive care. We need to speak to the daughter to find out if there is any previous living will with the patient's request. The patient has been placed on Ancef. Her medications have been reconciled. She is receiving a bowel regimen with stool softeners. She is also on piperacillin, propofol for sedation while she is on the ventilator, duo nebs, Protonix for PUD prophylaxis, heparin for DVT prophylaxis. We will follow her needs. Dictated by: AMERICA Cabello MD DUSTIN Zelaya/CECILE /1:48 PM /3:33 PM
--- NOTE | 2016-06-18 16:50 | HHI.HP ---
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 Physical Exam Vital Signs Vital Signs Date Time Temp Pulse Resp B/P Pulse Ox O2 Delivery O2 Flow Rate FiO2 06/18/16 14:00 101 06/18/16 13:30 100 35 06/18/16 10:36 100 35 06/18/16 10:00 101 06/18/16 08:15 100 35 06/18/16 08:00 45 06/18/16 08:00 98.0 104 16 141/77 100 06/18/16 08:00 104 06/18/16 06:00 45 06/18/16 06:00 108 06/18/16 05:43 99.0 108 13 132/69 99 06/18/16 05:40 100 100 06/18/16 05:02 100 18 160/68 99 Room Air 06/18/16 04:53 99 35 06/18/16 04:29 100 35 06/18/16 04:02 104 16 151/83 99 Ventilator 06/18/16 03:03 97 16 137/92 98 Ventilator 06/18/16 02:55 99 100 06/18/16 02:05 99 100 06/18/16 01:06 100 16 141/86 100 Ventilator 35 06/18/16 00:41 35 06/18/16 00:40 100 35 06/18/16 00:20 99 15.00 100 06/18/16 00:20 97 21 06/18/16 00:10 91 18 125/60 96 Room Air 06/17/16 22:31 93 18 108/55 95 Nasal Cannula 2 06/17/16 21:23 94 18 111/63 95 Nasal Cannula 2 06/17/16 20:16 100 Nasal Cannula 2 06/17/16 20:06 98.2 91 18 134/60 95 Nasal Cannula 2 06/17/16 19:52 98 2.00 06/17/16 19:52 98 Nasal Cannula 2.00 Physical Exam GENERAL: This is a well-nourished, well-developed patient, in no apparent distress. SKIN: No rashes, ecchymoses or lesions. Cool and dry. HEAD: Atraumatic. Normocephalic. No temporal or scalp tenderness. EYES: Pupils equal round and reactive. Extraocular motions intact. No scleral icterus. No injection or drainage. ENT: Nose without bleeding, purulent drainage or septal hematoma. Throat without erythema, tonsillar hypertrophy or exudate. Uvula midline. Airway patent. NECK: Trachea midline. No JVD or lymphadenopathy. Supple, nontender, no meningeal signs. CARDIOVASCULAR: Regular rate and rhythm without murmurs, gallops, or rubs. RESPIRATORY: Clear to auscultation. Breath sounds equal bilaterally. No wheezes , rales, or rhonchi. GASTROINTESTINAL: Abdomen soft, non-tender, nondistended. No hepato-splenomegaly , or palpable masses. No guarding. MUSCULOSKELETAL: Extremities without clubbing, cyanosis, or edema. No joint tenderness, effusion, or edema noted. No calf tenderness. Negative Homans sign bilaterally. NEUROLOGICAL: Awake and alert. Cranial nerves II through XII intact. Motor and sensory grossly within normal limits. Five out of 5 muscle strength in all muscle groups. Normal speech. Laboratory Laboratory Tests Test 06/17/16 06/17/16 06/18/16 06/18/16 20:45 21:00 03:21 04:38 White Blood Count 12.0 12.3 Red Blood Count 4.73 4.57 Hemoglobin 12.8 12.8 Bedside Hemoglobin 13.6 Hematocrit 39.8 38.8 Bedside Hematocrit 40.0 Mean Corpuscular Volume 84.2 85.0 Mean Corpuscular Hemoglobin 27.2 28.0 Mean Corpuscular Hemoglobin 32.3 32.9 Concent Red Cell Distribution Width 14.7 15.0 Platelet Count 90 83 Mean Platelet Volume 12.2 11.6 Neutrophils (%) (Auto) 53.4 51.7 Lymphocytes (%) (Auto) 35.8 39.2 Monocytes (%) (Auto) 6.7 4.6 Eosinophils (%) (Auto) 3.4 3.8 Basophils (%) (Auto) 0.7 0.7 Neutrophils # (Auto) 6.4 6.4 Lymphocytes # (Auto) 4.3 4.8 Monocytes # (Auto) 0.8 0.6 Eosinophils # (Auto) 0.4 0.5 Basophils # (Auto) 0.1 0.1 CBC Comment AUTO DIFF AUTO DIFF Differential Comment AUTO DIFF AUTO DIFF CONFIRMED CONFIRMED Platelet Estimate LOW LOW Platelet Morphology Comment NORMAL ENLARGED Prothrombin Time 11.7 Prothromb Time International 1.1 Ratio Activated Partial 22.4 Thromboplast Time Fibrinogen 324 Urine Color YELLOW Urine Turbidity HAZY Urine pH 5.5 Urine Specific [place] 1.019 Urine Protein TRACE Urine Glucose (UA) NEG Urine Ketones TRACE Urine Occult Blood TRACE Urine Nitrite NEG Urine Bilirubin NEG Urine Urobilinogen 2.0 Urine Leukocyte Esterase MOD Urine RBC 6 Urine WBC 9 Urine WBC Clumps MOD Urine Squamous Epithelial 1 Cells Urine Bacteria RARE Urine Hyaline Casts 10 Urine Mucus FEW Microscopic Urinalysis Comment Bedside Sodium 166 Bedside Potassium 4.7 Bedside Chloride 132 Bedside Blood Urea Nitrogen 67 Bedside Creatinine 4.3 Bedside Glucose 97 Total Creatine Kinase 173 Troponin I 0.02 Urine Opiates Screen NEG Urine Barbiturates Screen NEG Urine Amphetamines Screen NEG Urine Benzodiazepines Screen NEG Urine Cocaine Screen NEG Urine Cannabinoids Screen NEG Lactic Acid Level 2.1 Blood Type O POSITIVE Antibody Screen NEGATIVE Sodium Level 157 Potassium Level 4.7 Chloride Level 123 Carbon Dioxide Level 23.7 Anion Gap 10 Blood Urea Nitrogen 69 Creatinine 4.09 Estimat Glomerular Filtration 13 Rate Random Glucose 136 Calcium Level 7.9 Total Bilirubin 1.3 Aspartate Amino Transf 48 (AST/SGOT) Alanine Aminotransferase 28 (ALT/SGPT) Alkaline Phosphatase 76 Ammonia 55 Total Protein 8.1 Albumin 2.9 Vitamin B12 Level 748 Thyroid Stimulating Hormone 0.020 3rd Gen Blood Gas Puncture Site LT RADIAL Blood Gas Patient Temperature 98.6 Blood Gas HCO3 20 Blood Gas Base Excess -3.1 Blood Gas Oxygen Saturation 95 Arterial Blood pH 7.50 Arterial Blood Partial 26 Pressure CO2 Arterial Blood Partial 123 Pressure O2 Arterial Blood Oxygen Content 17.4 Arterial Blood 1.8 Carboxyhemoglobin Arterial Blood Methemoglobin 2.4 Blood Gas Hemoglobin 12.9 Oxygen Delivery Device VENTILATOR Blood Gas Ventilator Setting [id number]/500/PEEP5 Blood Gas Inspired Oxygen 35 Test 06/18/16 06/18/16 05:45 11:55 Nasal Screen MRSA (PCR) NEGATIVE Sodium Level 162 Serum Osmolality 370 Date/Time Procedure Status Source Growth 06/17/16 21:00 Aerobic Blood Culture - Preliminary Resulted Blood Peripheral NO GROWTH IN 1 DAY 06/17/16 21:00 Anaerobic Blood Culture - Preliminary Resulted Blood Peripheral NO GROWTH IN 1 DAY 06/17/16 20:45 Urine Culture Received Urine Catheterized Urine Pending Result Diagram: 06/18/16 0321 06/18/16 1155 Assessment and Plan Assessment and Plan Patient seen and examined please refer to admission H 7 p for details AMS likely metabolic encephalopathy sec to hypernatremia / hyperammonemia r/o CVA r/o subclinical seizures hypernatremia hyperammonemia UTI r/o aspiration pneumonia respiratory failure KARTHIK/CKD Appreciate CCM/ Neurology input wean from ventilator as tolerated broad spectrum antibiotics i/v fluids free water recheck BMP in am lactulose EEG plavix continue current care discussed with NATALI CROSS Physician Certification 2 Midnight Certification Type: Admission for Inpatient Services Order for Inpatient Services The services are ordered in accordance with Medicare regulations or non- Medicare payer requirements, as applicable. In the case of services not specified as inpatient-only, they are appropriately provided as inpatient services in accordance with the 2-midnight benchmark. Estimated LOS (days): 3 days is the estimated time the patient will need to remain in the hospital, assuming treatment plan goals are met and no additional complications. Post-Hospital Plan: [facility] Marcela Bro MD Jun 18, 2016 16:50
--- NOTE | 2016-06-18 19:52 | MG ---
cc: ARLENE ROMANO M.D. Sex: F DATE OF : 1945, 70. [id number] REFERRING PHYSICIAN: Dr. Fishman Room 506 INTRODUCTION: Hyperventilation was not done, only photic stimulation. 37 micrograms of Diprivan which was turned off at 10:05 in the morning, intubated but awake. EEG 02/04/12 showed encephalopathy, left greater than right asymmetry. This is a stroke alert patient, less responsive than usual with facial droop, dysphagia, stroke history, schizoaffective disorder. MEDICATIONS: Keppra Plavix. Pravachol. Metronidazole DESCRIPTION OF RECORD There is some overall slowing, predominate theta frequency, 4-5 hertz, some artifact, there is some sharp waves noted, predominant over the left hemisphere initially but now also seen over the right hemisphere, some bilateral sharps are seen at epoch 18. They are not continuous. EKG looks sinus. Photic stimulation does elicit a driving response. Some more sharp waves during epoch 50, predominantly over the left hemisphere this time. At epoch 69, bilateral sharps are seen again. IMPRESSION: Abnormal EEG due to some mild slowing as well as some sharp wave activity seen bilaterally but on occasion also over the distal left hemisphere, certainly focus epileptogenicity in this patient. Clinical correlation. Arlene Romano MD DF/CATY /6:43 PM /7:04 PM
[2016-06-18] MEDS: levETIRAcetam 500 MG/5 ML UDC TUBE SCH (21:01)
[2016-06-18 21:52] LABS: BICARBONATE 19.1 MEQ/L (21.0-32.0); POTASSIUM 4.2 MEQ/L (3.5-5.1)
[2016-06-19] VITALS (17 sets, daily range): BP systolic 96–137; BP diastolic 52–66; PULSE 75–111; RESP 14–21; TEMP 98–98.9; O2SAT 97–100
[2016-06-19] MEDS: FREE WATER OG SCH ×5 (00:08→23:56)
[2016-06-19] MEDS: PANTOPRAZOLE SODIUM 40 MG VIAL IV PUSH SCH (00:08)
[2016-06-19] MEDS: HEPARIN SODIUM - SQ 10,000 UNITS/ML VIAL SQ SCH ×3 (00:08→20:19)
[2016-06-19] MEDS: PROPOFOL 1000 MG/100 ML INJ 100 ML IV SCH ×2 (02:45→20:18)
[2016-06-19] MEDS: CHLORHEXIDINE GLUCONATE 2 % 1 PACK (2 CLOTHS)(taper/protocol) TOP SCH (02:45)
[2016-06-19] MEDS: metroNIDAZOLE 500 MG INJ 100 ML IV SCH ×3 (02:45→18:00)
[2016-06-19] MEDS: PIPERACIL-TAZO 3.375 GM PREMIX 50 ML IV SCH ×2 (02:45→08:50)
[2016-06-19] MEDS: METOPROLOL TARTRATE 5 MG/5 ML VIAL IV PUSH SCH ×4 (02:47→20:19)
[2016-06-19] MEDS: DEXTROSE 5% IN WATE 1000ML INJ 1,000 ML IV SCH (02:48)
[2016-06-19] MEDS: CEFEPIME INJ 2,000 MG in SODIUM CHLORIDE 0.9% INJ 100 ML IV SCH (05:20)
--- NOTE | 2016-06-19 07:14 | EKG ---
Date Performed: 06/17/2016 Time Performed: 20:07:43 PTAGE: 70 years EKG: Sinus rhythm Consider lead misplacement between V2,V3 PREVIOUS TRACING : 03/31/2013 06.48 DOCTOR: [place] Xiao Interpretating Date/Time 06/19/2016 07:13:38
[2016-06-19] MEDS: CHLORHEXIDINE 0.12% (ORAL KIT) 15 ML CUP MT SCH ×2 (08:00→20:18)
[2016-06-19] MEDS: levETIRAcetam 500 MG/5 ML UDC TUBE SCH ×2 (08:50→20:18)
[2016-06-19] MEDS: PRAVASTATIN SOD 20 MG TAB PO SCH (08:51)
[2016-06-19] MEDS: CLOPIDOGREL 75 MG TAB PO SCH (08:51)
[2016-06-19] MEDS: LACTULOSE SYRUP 20 GM/30 ML CUP PO SCH ×2 (08:51→20:19)
[2016-06-19] MEDS: DOCUSATE SODIUM 100 MG/10 ML UDC PO SCH ×2 (08:51→20:19)
[2016-06-19] MEDS: SODIUM CHLORIDE 0.9% FLUSH 5 ML FLUSH FLUSH SCH ×2 (09:00→20:19)
--- NOTE | 2016-06-19 09:32 | HHI.PR ---
Subjective Interval History awake off sedation lasted only 10 min on CPAP back on AC no fever no family at bed side Vitals/Results Intake & Output 06/18/16 06/18/16 06/19/16 15:00 23:00 07:00 Intake Total 400 ml 2193 ml 1224 ml Output Total 800 ml 400 ml 650 ml Balance -400 ml 1793 ml 574 ml Intake Oral 0 ml IV Total 2193 ml 1224 ml Other 400 ml Output Urine Total 800 ml 400 ml 650 ml Vital Signs Vital Signs Date Time Temp Pulse Resp B/P Pulse Ox O2 Delivery O2 Flow Rate FiO2 06/19/16 09:06 100 35 06/19/16 08:00 98.0 75 21 108/55 99 06/19/16 08:00 35 06/19/16 08:00 90 06/19/16 06:00 87 06/19/16 04:15 100 35 06/19/16 04:00 75 06/19/16 04:00 98.0 75 21 137/66 99 06/19/16 04:00 35 06/19/16 02:00 86 06/19/16 01:18 100 35 06/19/16 00:00 98.6 84 14 97/54 100 06/19/16 00:00 35 06/19/16 00:00 84 06/18/16 22:18 100 35 06/18/16 22:00 84 06/18/16 20:00 35 06/18/16 20:00 97.5 91 14 152/75 100 06/18/16 20:00 91 06/18/16 19:55 100 35 06/18/16 18:00 101 06/18/16 16:46 100 35 06/18/16 16:00 98.0 91 16 104/54 100 06/18/16 16:00 45 06/18/16 16:00 98 06/18/16 14:00 101 06/18/16 13:30 100 35 06/18/16 12:00 97.9 96 13 128/62 99 06/18/16 10:36 100 35 06/18/16 10:00 101 CBC/BMP: 06/18/16 0321 06/18/16 1855 Lab Results Laboratory Tests Test 06/18/16 06/18/16 11:55 18:55 Sodium Level 162 MEQ/L 157 MEQ/L Serum Osmolality 370 MOSM/KG Potassium Level 4.2 MEQ/L Chloride Level 124 MEQ/L Carbon Dioxide Level 19.1 MEQ/L Anion Gap 14 MEQ/L Blood Urea Nitrogen 57 MG/DL Creatinine 3.83 MG/DL Estimat Glomerular Filtration 14 ML/MIN Rate Random Glucose 133 MG/DL Calcium Level 8.5 MG/DL Physical Exam General General Appearance: No Acute Distress, Comfortable Appearance Remarks intubated Eyes Eye Exam: Pupils Equal, Pupils Reactive Neck Neck Exam: Neck Supple Pulmonary Resp Exam: Clear Bilaterally, No Distress, Diminished Breath Sounds Cardiology CV Exam: Regular Gastrointestinal/Abdomen GI Exam: Soft, Non-Tender, Bowel Sounds Present Integumentary Skin Exam: Clear, Warm, Dry Extremeties Extremities Exam: No Edema Neurologic Neuro Exam: Alert, Awake Psychiatric Psych Exam: Appropriate Responses Assessment/Plan Assessment/Plan Acute metabolic encephalopathy Probable acute stroke Seizure disorder Dementia disorder NOS Schizoaffective disorder Acute respiratory failure History of hypertension Dyslipidemia Chronic diastolic heart failure ejection fraction 55% h/o Liver cirrhosis hyper ammonemia KARTHIK/CKD hypernatremia UTI/sepsis/ BActeremia (1 of 4 + for GPC) low TSH History of left MCA stroke with right hemiparesis History of intracranial aneurysm and bleed Appreciate CCM input/help Vent management and weaning per CCM No acute CVA, Right prox ICA Plaque, not hemodynamically significant On lactulose for hyperammonemia, repeat ammonia pending NPO, tube feeds i/v protonix h & H stab;e D5W and free water, sodium down to 148, continue to monitor can decrease d5w creatinine slightly improved 3.06 today broad spectrum antibiotics d/c zosyn follow blood and urine cultures discussed with nursing staff discussed with patient no family at bed side Marcela Bro MD Jun 19, 2016 09:32
[2016-06-19 11:37] LABS: AUTOMATED NEUTROPHIL # 9.4 TH/MM3 (1.8-7.7); BASOPHIL % 0.1 % (0.0-2.0); EOSINOPHIL # 0.5 TH/MM3 (0-0.4); EOSINOPHIL % 3.9 % (0.0-4.0); HEMATOCRIT 42.6 % (35.0-46.0); LYMPH % 15.1 % (9.0-44.0); LYMPHOCYTE # 1.9 TH/MM3 (1.0-4.8); MEAN CELL VOLUME 83.6 FL (80.0-100.0); MEAN CORPUSCULAR HEMOGLOBIN 26.2 PG (27.0-34.0); MEAN CORPUSCULAR HGB CONC 31.4 % (32.0-36.0); MONO % 7.3 % (0.0-8.0); NEUT % 73.6 % (16.0-70.0); PLATELET COUNT 52 TH/MM3 (150-450); RED CELL DISTRIBUTION WIDTH 14.4 % (11.6-17.2); WHITE BLOOD COUNT 12.8 TH/MM3 (4.0-11.0)
[2016-06-19 11:39] LABS: HEMO FLAGS AUTO DIFF
[2016-06-19 11:44] LABS: ALT (GPT) 15 U/L (10-53); ANION GAP 13 MEQ/L (5-15); AST (GOT) 25 U/L (15-37); BICARBONATE 20.8 MEQ/L (21.0-32.0); BLOOD UREA NITROGEN 47 MG/DL (7-18); CHLORIDE 114 MEQ/L (98-107); GLOMERULAR FILTRATION RATE 18 ML/MIN (>89); MAGNESIUM 2.7 MG/DL (1.5-2.5); POTASSIUM 3.4 MEQ/L (3.5-5.1); SODIUM (NA) 148 MEQ/L (136-145)
[2016-06-19 11:55] LABS: ALKALINE PHOSPHATASE 80 U/L (45-117); FREE T3 2.47 PG/ML (2.18-3.98); FREE T4 1.48 NG/DL (0.76-1.46)
[2016-06-19 12:35] LABS: PLATELET ESTIMATE SMEAR LOW (NORMAL); PLATELET MORPHOLOGY ENLARGED (NORMAL); SCAN/DIFF AUTO DIFF CONFIRMED
[2016-06-19] MEDS: RIFAXIMIN 550 MG TAB PO SCH ×2 (12:45→20:18)
[2016-06-19] MEDS ORDERED: POTASSIUM CL 40 MEQ/30 ML LIQ UDC PO ONE (12:45)
[2016-06-19] MEDS: SODIUM CHLOR 0.45% 1000 ML INJ 1,000 ML IV SCH (13:00)
--- NOTE | 2016-06-19 13:31 | HHI.CCPN ---
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 Patient was found less responsive than usual, left facial droop, not able to follow directions. On arrival evaluated by ER physician Dr. Reeves. CT of the head showed no acute findings but large old left MCA stroke. The findings discussed with Dr. Romano who decided that patient is not a good TPA candidate. Patient was started on Plavix due to severe aspirin allergy. UA showed evidence of UTI and cultures were done and IV antibiotics were started in the ED. Lab work showed a white count of 12, lactic acid 2.1, sodium of 166 and a new acute renal failure with BUN 67 and creatinine 4.5. Patient has chronic renal insufficiency with a baseline creatinine highest at 1.3. Initially patient was admitted to [facility]. While in the ER patient' s mental status worsened and patient was intubated for airway protection I evaluated the patient in the ED. Her eyes are spontaneously open but do not follow commands right upper extremity is flaccid and patient has bilateral foot drop moves left upper extremity freely. Acute encephalopathy seems to be metabolic, secondary to her hyponatremia, renal failure and urosepsis 06/18: Afebrile. Arousable on the ventilator currently receiving peripheral IVs. Rosales placed with adequate urine output Subjective 06/19: Afebrile. Lasted 10 minutes on CPAP trials today. No bowel movement. Will initiate tube feeds today. Objective Vital Signs Date Time Temp Pulse Resp B/P Pulse Ox O2 Delivery O2 Flow Rate FiO2 06/19/16 11:45 100 35 06/19/16 10:00 90 06/19/16 08:00 98.0 21 108/55 06/18/16 05:02 Room Air 06/18/16 00:20 15.00 Intake and Output 06/18/16 06/18/16 06/19/16 08:00 16:00 00:00 Intake Total 400 ml 2193 ml Output Total 800 ml 400 ml Balance -400 ml 1793 ml Result Diagram: 06/19/16 1112 06/19/16 1112 Other Results Microbiology Date/Time Procedure Status Source Growth 06/17/16 21:00 Aerobic Blood Culture - Preliminary Resulted Blood Peripheral NO GROWTH IN 2 DAYS 06/17/16 21:00 Anaerobic Blood Culture - Preliminary Resulted Blood Peripheral NO GROWTH IN 2 DAYS 06/17/16 20:45 Urine Culture - Preliminary Resulted Urine Catheterized Urine IMMATURE GROWTH - REINCUBATE Imaging Last Impressions Renal Ultrasound 06/18/16 0343 Signed Impressions: Service Date/Time: Saturday, June 18, 2016 08:15 - CONCLUSION: 1. Increased echogenicity which can be seen with medical renal disease. Right kidney is slightly small in size. 2. Urinary bladder is decompressed by Rosales catheter. Gideon De La Fuente MD Brain MRI 06/18/16 0102 Signed Impressions: Service Date/Time: Saturday, June 18, 2016 02:28 - CONCLUSION: 1. Widespread encephalomalacia throughout the left cerebral hemisphere. An area of acute infarction is not clearly seen. There is very prominent expansion of the left lateral ventricle. 2. Suspected underlying small vessel ischemic change in the white matter on the right hemisphere. 3. Areas of signal abnormality on the SWI images related to prior areas of hemorrhage. No acute hemorrhage is seen. Kye Montiel MD Chest X-Ray 06/18/16 0044 Signed Impressions: Service Date/Time: Saturday, June 18, 2016 01:19 - CONCLUSION: ET tube in good position. Kye Montiel MD Head Magnetic Resonance Angiography 06/18/16 0000 Signed Impressions: Service Date/Time: Saturday, June 18, 2016 02:28 - CONCLUSION: No acute areas of occlusion. There is asymmetric and diminished flow in the more distal left middle cerebral artery territory. Kye Montiel MD Carotid Artery Ultrasound 06/18/16 0000 Signed Impressions: Service Date/Time: Saturday, June 18, 2016 07:56 - CONCLUSION: 1. Severe plaque in the right proximal right internal carotid artery but no hemodynamically significant stenosis identified. May consider a carotid CTA to ensure no significant stenosis. 2. No significant stenosis in the left carotid artery. Gideon De La Fuente MD Head CT 06/17/16 0000 Signed Impressions: Service Date/Time: Friday, June 17, 2016 20:15 - CONCLUSION: No acute intracranial abnormality. Old left middle cerebral artery distribution infarct. Kye Young MD Objective Remarks GENERAL: 70-year-old well-nourished, well-developed elderly -[place] female patient with right sided hemiplegia SKIN: Warm and dry. No rash HEAD: Normocephalic. EYES: Pupils are equal, round, reactive to light bilaterally around 3 mm. ENT: Orotracheally intubated NECK: Supple, trachea midline. CARDIOVASCULAR: Regular rate and rhythm S1, S2. No S4. Without murmurs, gallops, or rubs. RESPIRATORY: Breath sounds equal bilaterally. No accessory muscle use. GASTROINTESTINAL: Abdomen soft, non-tender, nondistended. Hypoactive bowel sounds MUSCULOSKELETAL: No new skin peripheral edema. Bilateral foot drop NEUROLOGICAL: Intubated sedated with propofol. Eyes open spontaneously. Currently falling commands. Spontaneously moving left upper extremity, flaccid right upper extremity. Bilateral foot drop but withdraws to pain A/P Assessment and Plan NEURO/PSYCH: Acute metabolic encephalopathy Probable acute stroke History of left MCA stroke with right hemiparesis History of intracranial aneurysm and bleed Seizure disorder Dementia disorder NOS Schizoaffective disorder History bilateral foot drop Depression -CT of the head negative for acute findings, - MRI of the brain revealed extensive encephalomalacia left side including the frontal, parietal and temporal regions. No signs of acute CVA. MRA brain showedno focal signs of stenosis but decreased blood flow in the left MCA distribution - EEG - possible epileptiform activity in left hemisphere - Keppra 250 twice a day with 500 mg at night/home dosage -> increased to 1000 mg twice a day by Dr. Barclay -Plavix 75 mg daily started as the patient is allergic to aspirin RESP: Acute respiratory failure History of a sore sleep apnea -Assist control mechanical ventilation / -Ventilator bundle -DuoNeb every 6 hours when necessary -Spontaneous breathing trials daily -Broad spectrum antibiotics with Zosyn and Flagyl to cover for aspiration CV: Right proximal internal carotid artery plaque not hemodynamic significant Recommended CTA neck when appropriate Atherosclerotic vascular disease History of hypertension Dyslipidemia Chronic diastolic heart failure ejection fraction 55% 2012 -Hold home hypertensive medications lisinopril 20 mg twice a day and clonidine 0.1 mg twice a day at this time Lopressor 2.5 IV every 6/on metoprolol 100 mg twice a day at home. -Due to possible acute stroke, goal ideally keep systolic blood pressure >160 -One half normal saline at 42 cc an hour Continue pravastatin at 20 mg by mouth daily GI: History of GI bleed History of Lorraine-Jaimes tear Liver cirrhosis Hypoalbuminemia Gastro-Esophageal reflux disease Hiatal hernia History of esophagitis Elevated ammonia Start with Nepro goal 50 cc an hour -IV Protonix, Colace Lactulose 30 cc twice a day. Recheck in a.m. was 122. Added Xifaxan 550 twice a day RENAL//FEN: Acute kidney failure Chronic kidney insufficiency baseline creatinine about 1.1 Hypernatremia -Monitor renal function closely. Place Rosales catheter. -Half normal saline IV fluids -Free water replacement 150 mL every 6 hours -Renal US revealed medical renal disease right kidney. Normal left kidney. No hydronephrosis. -Urine electrolyte/eosinophils pending ID: Sepsis UTI -Empiric Zosyn and Flagyl day #3 -Follow up on blood urine and blood cultures no growth to date HEME: Mild thrombocytopenia Leukocytosis -Monitor CBC, CMP, coags ENDO: Hypernatremia - likely medication Low TSH -Electrolyte replacement protocol, sliding scale insulin if needed -Free water replacement as above -Check urine and serum osmolality for hyponatremia Free T4 slightly elevated. T3 normal. Will likely need a recheck in a few weeks to check TSI and anti-TPO for now PROPH: -Bilateral lower extremity SCDs. IV Protonix, subcutaneous heparin LINES: -Utilize peripheral IVs, central line if needed Critical Care: The total care time was 35 minutes. Time to perform other separately billable procedures was not included in the critical care time. Hosea Gonzalez MD Jun 19, 2016 13:31
--- NOTE | 2016-06-19 19:39 | HHI.PR ---
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 one hourly. - Plavix 75 mg daily. - Keppra 1gm Q12h. - SCD prophylaxis. - GI prophylaxis. - Correction of hypernatremia. Diagnosis/Plan: Subjective Subjective Comments Patient is ventilated, not sedated Today, awake, spontaneous eye opening, moves extremities equally EEG with evidence of b/l sharp waves, and occasional left sided sharp waves Levetiracetam level is therapeutic at 23.9 Right ICA stenosis On Keppra 1gm Q12h Active Medications Current Medications Medications (Trade) Dose Ordered Sig/Sharmila Route Start Time Stop Time Status Last Admin (NS Flush) 2 ml UNSCH PRN FLUSH 06/17/16 23:30 (NS Flush) 2 ml BID FLUSH 06/18/16 09:00 06/19/16 09:00 (Tylenol) 650 mg Q4H PRN PO 06/17/16 23:30 (Zofran Inj) 4 mg Q6H PRN IVP 06/17/16 23:30 (Dulcolax Supp) 10 mg DAILY PRN CO 06/17/16 23:30 (Senokot) 17.2 mg Q12H PRN PO 06/17/16 23:30 (Heparin Inj) 5,000 units Q12H SQ 06/17/16 23:30 06/19/16 11:30 (Narcan Inj) 0.4 mg UNSCH PRN IV 06/17/16 23:30 (Plavix) 75 mg DAILY PO 06/18/16 09:00 06/19/16 08:51 (NS Flush) 2 ml UNSCH PRN IVF 06/18/16 00:30 (Pravachol) 20 mg DAILY PO 06/18/16 09:00 06/19/16 08:51 Chlorhexidine Gluconate 15 ml 15 ml BID@08,20 MT 06/18/16 08:00 06/19/16 08:00 Propofol 100 ml @ 0 mls/hr TITRATE IV 06/18/16 01:15 06/19/16 02:45 (Flagyl 500 Mg Inj) 100 ml @ 100 mls/hr Q8H IV 06/18/16 02:00 06/19/16 10:00 (Protonix Inj) 40 mg Q24H IV PUSH 06/18/16 01:15 06/19/16 00:08 (Colace Liq) 100 mg Q12HR PO 06/18/16 09:00 06/19/16 08:51 Miscellaneous Information Patient in critical care unit? Ass... [id number] XX 06/18/16 06:30 06/18/16 06:30 (Chlorhexidine 2% Cloth) 3 pack DAILY@04 TOP 06/19/16 04:00 06/23/16 04:01 06/19/16 02:45 (Chlorhexidine 2% Cloth) 3 pack UNSCH PRN TOP 06/18/16 06:30 06/23/16 06:29 (Lactulose Liq) 30 ml BID PO 06/18/16 09:15 06/19/16 08:51 Metoprolol Tartrate 2.5 mg 2.5 mg Q6H IV PUSH 06/18/16 10:00 06/19/16 10:00 (Maxipime Inj/NS Inj) 100 ml @ 200 mls/hr Q24H IV 06/19/16 06:00 06/19/16 05:20 (Keppra Liq) 1,000 mg Q12HR TUBE 06/18/16 21:00 06/19/16 08:50 (Free Water) 150 ml Q6HR OG 06/19/16 18:00 Rifaximin 550 mg 550 mg BID PO 06/19/16 12:45 06/19/16 12:45 (1/2 NS 1000 ml Inj) 1,000 ml @ 42 mls/hr [id number] IV 06/19/16 13:00 06/19/16 13:00 Allergies Allergies Coded Allergies Aspirin (Verified Allergy, Severe, 06/17/16) *MDRO Multi-Drug Resistant Organism (Verified Allergy, Unknown, 06/17/16) Exam I&O / VS 06/18/16 06/18/16 06/19/16 15:00 23:00 07:00 Intake Total 400 ml 2193 ml 1224 ml Output Total 800 ml 400 ml 650 ml Balance -400 ml 1793 ml 574 ml Intake Oral 0 ml IV Total 2193 ml 1224 ml Other 400 ml Output Urine Total 800 ml 400 ml 650 ml Vital Signs Date Time Temp Pulse Resp B/P Pulse Ox O2 Delivery O2 Flow Rate FiO2 06/19/16 16:40 97 35 06/19/16 16:00 35 06/19/16 16:00 98.4 103 21 123/63 99 06/19/16 16:00 90 06/19/16 14:00 90 06/19/16 12:00 90 06/19/16 12:00 98.4 106 21 96/52 99 06/19/16 12:00 35 06/19/16 11:45 100 35 06/19/16 11:45 35 06/19/16 10:00 90 06/19/16 09:06 100 35 06/19/16 08:00 98.0 75 21 108/55 99 06/19/16 08:00 35 06/19/16 08:00 90 06/19/16 06:00 87 06/19/16 04:15 100 35 06/19/16 04:00 75 06/19/16 04:00 98.0 75 21 137/66 99 06/19/16 04:00 35 06/19/16 02:00 86 06/19/16 01:18 100 35 06/19/16 00:00 98.6 84 14 97/54 100 06/19/16 00:00 35 06/19/16 00:00 84 06/18/16 22:18 100 35 06/18/16 22:00 84 06/18/16 20:00 35 06/18/16 20:00 97.5 91 14 152/75 100 06/18/16 20:00 91 06/18/16 19:55 100 35 Exam Comments GENERAL: The patient is intubated, not sedated, well -developed - [place] patient HEENT: Atraumatic, normocephalic. Pupils are 2-3 mm, bilaterally equal to light. CARDIOVASCULAR: Regular rhythm and rate. No murmurs. RESPIRATORY:Bilaterally equal breath sounds. No wheezes. MUSCULOSKELETAL: No cyanosis or edema. Bilateral foot drop with flexion contractures. NEUROLOGICAL: Intubated, off sedation. Pupils are 2-3 mm bilaterally reacting briskly to light. No gaze deviation. Bilateral foot drop with flexion contracture, left greater than the right. Plantars are bilaterally downgoing. moves four extremities equally. Objective Radiology Results Last 72 hours Impressions Renal Ultrasound 06/18/16 0343 Signed Impressions: Service Date/Time: Saturday, June 18, 2016 08:15 - CONCLUSION: 1. Increased echogenicity which can be seen with medical renal disease. Right kidney is slightly small in size. 2. Urinary bladder is decompressed by Rosales catheter. Gideon De La Fuente MD Brain MRI 06/18/16 0102 Signed Impressions: Service Date/Time: Saturday, June 18, 2016 02:28 - CONCLUSION: 1. Widespread encephalomalacia throughout the left cerebral hemisphere. An area of acute infarction is not clearly seen. There is very prominent expansion of the left lateral ventricle. 2. Suspected underlying small vessel ischemic change in the white matter on the right hemisphere. 3. Areas of signal abnormality on the SWI images related to prior areas of hemorrhage. No acute hemorrhage is seen. Kye Montiel MD Chest X-Ray 06/18/16 0044 Signed Impressions: Service Date/Time: Saturday, June 18, 2016 01:19 - CONCLUSION: ET tube in good position. Kye Montiel MD Head Magnetic Resonance Angiography 06/18/16 0000 Signed Impressions: Service Date/Time: Saturday, June 18, 2016 02:28 - CONCLUSION: No acute areas of occlusion. There is asymmetric and diminished flow in the more distal left middle cerebral artery territory. Kye Montiel MD Carotid Artery Ultrasound 06/18/16 0000 Signed Impressions: Service Date/Time: Saturday, June 18, 2016 07:56 - CONCLUSION: 1. Severe plaque in the right proximal right internal carotid artery but no hemodynamically significant stenosis identified. May consider a carotid CTA to ensure no significant stenosis. 2. No significant stenosis in the left carotid artery. Gideon De La Fuente MD Head CT 06/17/16 0000 Signed Impressions: Service Date/Time: Friday, June 17, 2016 20:15 - CONCLUSION: No acute intracranial abnormality. Old left middle cerebral artery distribution infarct. Kye Young MD Micro and Labs Laboratory Tests Test 06/19/16 11:12 White Blood Count 12.8 Red Blood Count 5.10 Hemoglobin 13.4 Hematocrit 42.6 Mean Corpuscular Volume 83.6 Mean Corpuscular Hemoglobin 26.2 Mean Corpuscular Hemoglobin 31.4 Concent Red Cell Distribution Width 14.4 Platelet Count 52 Mean Platelet Volume 12.0 Neutrophils (%) (Auto) 73.6 Lymphocytes (%) (Auto) 15.1 Monocytes (%) (Auto) 7.3 Eosinophils (%) (Auto) 3.9 Basophils (%) (Auto) 0.1 Neutrophils # (Auto) 9.4 Lymphocytes # (Auto) 1.9 Monocytes # (Auto) 0.9 Eosinophils # (Auto) 0.5 Basophils # (Auto) 0.0 CBC Comment AUTO DIFF Differential Comment AUTO DIFF CONFIRMED Platelet Estimate LOW Platelet Morphology Comment ENLARGED Sodium Level 148 Potassium Level 3.4 Chloride Level 114 Carbon Dioxide Level 20.8 Anion Gap 13 Blood Urea Nitrogen 47 Creatinine 3.06 Estimat Glomerular Filtration 18 Rate Random Glucose 144 Calcium Level 8.6 Phosphorus Level 4.1 Magnesium Level 2.7 Total Bilirubin 1.0 Aspartate Amino Transf 25 (AST/SGOT) Alanine Aminotransferase 15 (ALT/SGPT) Alkaline Phosphatase 80 Ammonia 122 Total Protein 8.3 Albumin 2.7 Free Thyroxine 1.48 Free Triiodothyronine (T3) 2.47 pg/dL Date/Time Procedure Status Source Growth 06/17/16 21:00 Aerobic Blood Culture - Preliminary Resulted Blood Peripheral NO GROWTH IN 2 DAYS 06/17/16 21:00 Anaerobic Blood Culture - Preliminary Resulted Blood Peripheral NO GROWTH IN 2 DAYS 06/17/16 20:45 Urine Culture - Preliminary Resulted Urine Catheterized Urine IMMATURE GROWTH - REINCUBATE Jimena Griffith MD Jun 19, 2016 19:39
[2016-06-20] VITALS (17 sets, daily range): BP systolic 86–134; BP diastolic 51–68; PULSE 97–115; RESP 14–18; TEMP 98.1–99.6; O2SAT 99–100
[2016-06-20] MEDS: metroNIDAZOLE 500 MG INJ 100 ML IV SCH ×2 (00:20→12:19)
[2016-06-20] MEDS: PANTOPRAZOLE SODIUM 40 MG VIAL IV PUSH SCH (00:20)
[2016-06-20 02:33] LABS: ALKALINE PHOSPHATASE 71 U/L (45-117); ALT (GPT) 14 U/L (10-53); ANION GAP 12 MEQ/L (5-15); AST (GOT) 19 U/L (15-37); BICARBONATE 23.3 MEQ/L (21.0-32.0); BLOOD UREA NITROGEN 36 MG/DL (7-18); CHLORIDE 114 MEQ/L (98-107); GLOMERULAR FILTRATION RATE 24 ML/MIN (>89); MAGNESIUM 2.4 MG/DL (1.5-2.5); SODIUM (NA) 149 MEQ/L (136-145); TOTAL BILIRUBIN ADULT 1.1 MG/DL (0.2-1.0)
[2016-06-20 02:37] LABS: POTASSIUM 2.6 MEQ/L (3.5-5.1)
[2016-06-20] MEDS: CHLORHEXIDINE GLUCONATE 2 % 1 PACK (2 CLOTHS)(taper/protocol) TOP SCH (03:15)
[2016-06-20] MEDS: METOPROLOL TARTRATE 5 MG/5 ML VIAL IV PUSH SCH ×2 (03:15→10:00)
[2016-06-20] MEDS ORDERED: POTASSIUM CL 40 MEQ/30 ML LIQ UDC PO/TUBE ONE (03:30)
[2016-06-20] MEDS: POTASSIUM CHLOR 20 MEQ PREMIX 100 ML IV SCH ×2 (03:31→04:52)
[2016-06-20] MEDS: CEFEPIME INJ 2,000 MG in SODIUM CHLORIDE 0.9% INJ 100 ML IV SCH (04:52)
[2016-06-20] MEDS: FREE WATER OG SCH ×2 (04:53→12:00)
[2016-06-20 07:15] LABS: AUTOMATED NEUTROPHIL # 11.4 TH/MM3 (1.8-7.7); BASOPHIL # 0.1 TH/MM3 (0-0.2); BASOPHIL % 0.3 % (0.0-2.0); EOSINOPHIL # 0.6 TH/MM3 (0-0.4); EOSINOPHIL % 3.5 % (0.0-4.0); HEMATOCRIT 38.5 % (35.0-46.0); LYMPH % 18.8 % (9.0-44.0); MEAN CELL VOLUME 83.3 FL (80.0-100.0); MEAN CORPUSCULAR HEMOGLOBIN 26.4 PG (27.0-34.0); MEAN CORPUSCULAR HGB CONC 31.7 % (32.0-36.0); MONO % 6.3 % (0.0-8.0); NEUT % 71.1 % (16.0-70.0); PLATELET COUNT 58 TH/MM3 (150-450); RED BLOOD COUNT 4.62 MIL/MM3 (4.00-5.30); RED CELL DISTRIBUTION WIDTH 14.3 % (11.6-17.2); WHITE BLOOD COUNT 16.1 TH/MM3 (4.0-11.0)
[2016-06-20] MEDS ORDERED: POTASSIUM CL 40 MEQ/30 ML LIQ UDC PO ONE (07:15)
[2016-06-20 07:23] LABS: HEMO FLAGS AUTO DIFF
[2016-06-20 08:21] LABS: PLATELET ESTIMATE SMEAR LOW (NORMAL); PLATELET MORPHOLOGY ENLARGED (NORMAL); SCAN/DIFF AUTO DIFF CONFIRMED
[2016-06-20] MEDS: CLOPIDOGREL 75 MG TAB PO SCH (08:33)
[2016-06-20] MEDS: DOCUSATE SODIUM 100 MG/10 ML UDC PO SCH ×2 (08:33→21:00)
[2016-06-20] MEDS: PRAVASTATIN SOD 20 MG TAB PO SCH (08:33)
[2016-06-20] MEDS: RIFAXIMIN 550 MG TAB PO SCH ×2 (08:33→22:03)
[2016-06-20] MEDS: levETIRAcetam 500 MG/5 ML UDC TUBE SCH ×2 (08:33→22:03)
--- NOTE | 2016-06-20 08:33 | ECHLIM ---
Study Study Date:06/19/2016 If LV function is below 40, please consider prescribing an ACEI or ARB or document rationale for non-use. PROCEDURE DATA STUDY COMPLETION: THE PATIENT TOLERATED THE PROCEDURE WELL. Limited echo Very poor quality LV function appears borderline normal No clear valvular vegetations visualized Echocardiography. CARDIAC ANATOMY Prepared and signed by Luis Madrid [id number]
[2016-06-20] MEDS: CHLORHEXIDINE 0.12% (ORAL KIT) 15 ML CUP MT SCH ×2 (08:34→20:00)
[2016-06-20] MEDS: LACTULOSE SYRUP 20 GM/30 ML CUP PO SCH ×2 (09:00→21:00)
--- NOTE | 2016-06-20 11:29 | HHI.PR ---
Subjective Interval History remains intubated minimal sedation on CPAP since 815am drops BP with minimal change in position + BM this am no fever no family at bed side occasion agitation Vitals/Results Intake & Output 06/19/16 06/19/16 06/20/16 15:00 23:00 07:00 Intake Total 1100 ml 560 ml 555 ml Output Total 600 ml 550 ml 400 ml Balance 500 ml 10 ml 155 ml Intake Oral 0 ml IV Total 1100 ml 560 ml 411 ml Tube Feeding 144 ml Output Urine Total 600 ml 550 ml 400 ml # Bowel Movements 1 Vital Signs Vital Signs Date Time Temp Pulse Resp B/P Pulse Ox O2 Delivery O2 Flow Rate FiO2 06/20/16 10:00 101 06/20/16 08:29 35 06/20/16 08:09 99 35 06/20/16 08:00 35 06/20/16 08:00 101 06/20/16 06:00 110 06/20/16 04:30 100 35 06/20/16 04:00 103 06/20/16 04:00 98.1 103 17 105/62 100 06/20/16 04:00 35 06/20/16 02:00 102 06/20/16 01:15 100 35 06/20/16 00:00 111 06/20/16 00:00 98.6 111 14 120/63 100 06/20/16 00:00 35 06/19/16 22:00 111 06/19/16 20:32 99 35 06/19/16 20:00 110 06/19/16 20:00 98.9 110 21 118/66 99 06/19/16 20:00 35 06/19/16 16:40 97 35 06/19/16 16:00 35 06/19/16 16:00 98.4 103 21 123/63 99 06/19/16 16:00 90 06/19/16 14:00 90 06/19/16 12:00 90 06/19/16 12:00 98.4 106 21 96/52 99 06/19/16 12:00 35 06/19/16 11:45 100 35 06/19/16 11:45 35 CBC/BMP: 06/20/16 0652 06/20/16 0200 Lab Results Laboratory Tests Test 06/19/16 06/20/16 06/20/16 22:00 02:00 06:52 Urine Osmolality 303 MOSM/KG Urine Random Sodium 59 MEQ/L Sodium Level 149 MEQ/L Potassium Level 2.6 MEQ/L Chloride Level 114 MEQ/L Carbon Dioxide Level 23.3 MEQ/L Anion Gap 12 MEQ/L Blood Urea Nitrogen 36 MG/DL Creatinine 2.44 MG/DL Estimat Glomerular Filtration 24 ML/MIN Rate Random Glucose 104 MG/DL Calcium Level 8.3 MG/DL Phosphorus Level 3.8 MG/DL Magnesium Level 2.4 MG/DL Total Bilirubin 1.1 MG/DL Aspartate Amino Transf 19 U/L (AST/SGOT) Alanine Aminotransferase 14 U/L (ALT/SGPT) Alkaline Phosphatase 71 U/L Total Protein 7.0 GM/DL Albumin 2.4 GM/DL White Blood Count 16.1 TH/MM3 Red Blood Count 4.62 MIL/MM3 Hemoglobin 12.2 GM/DL Hematocrit 38.5 % Mean Corpuscular Volume 83.3 FL Mean Corpuscular Hemoglobin 26.4 PG Mean Corpuscular Hemoglobin 31.7 % Concent Red Cell Distribution Width 14.3 % Platelet Count 58 TH/MM3 Mean Platelet Volume 12.2 FL Neutrophils (%) (Auto) 71.1 % Lymphocytes (%) (Auto) 18.8 % Monocytes (%) (Auto) 6.3 % Eosinophils (%) (Auto) 3.5 % Basophils (%) (Auto) 0.3 % Neutrophils # (Auto) 11.4 TH/MM3 Lymphocytes # (Auto) 3.0 TH/MM3 Monocytes # (Auto) 1.0 TH/MM3 Eosinophils # (Auto) 0.6 TH/MM3 Basophils # (Auto) 0.1 TH/MM3 CBC Comment AUTO DIFF Differential Comment AUTO DIFF CONFIRMED Platelet Estimate LOW Platelet Morphology Comment ENLARGED Lactic Acid Level 3.7 mmol/L Ammonia 80 MCMOL/L Physical Exam General General Appearance: No Acute Distress Appearance Remarks intubated and sedated Eyes Eye Exam: Pupils Equal, Pupils Reactive Neck Neck Exam: Neck Supple Pulmonary Resp Exam: Clear Bilaterally, No Distress, Diminished Breath Sounds Cardiology CV Exam: Regular Gastrointestinal/Abdomen GI Exam: Soft, Non-Tender, Bowel Sounds Present Integumentary Skin Exam: Clear, Warm, Dry Extremeties Extremities Exam: No Edema Neurologic Neuro Exam: Sedated Assessment/Plan Assessment/Plan Acute metabolic encephalopathy Probable acute stroke Seizure disorder Dementia disorder NOS Schizoaffective disorder Acute respiratory failure History of hypertension Dyslipidemia Chronic diastolic heart failure ejection fraction 55% h/o Liver cirrhosis hyper ammonemia KARTHIK/CKD hypernatremia UTI/sepsis/ BActeremia (1 of 4 + for GPC) low TSH History of left MCA stroke with right hemiparesis History of intracranial aneurysm and bleed Appreciate CCM input/help Vent management and weaning per [facility] CPAP trials EEG with possible epileptiform discharges Neurology following Keppra dose increased No acute CVA, Right prox ICA Plaque, not hemodynamically significant On lactulose and Rifaximin for hyperammonemia, repeat ammonia improving NPO, tube feeds i/v protonix h & H stable i/2 NS and free water, sodium down to 148, remains at 149 creatinine continues to improve , 2.44 today broad spectrum antibiotics cefepime and Flagyl blood culture likely contamination urine culture growing strept Viridans, awaiting susceptibilities labs in am discussed with nursing staff discussed with patient no family at bed side Marcela Bro MD Jun 20, 2016 11:29
[2016-06-20] MEDS: SODIUM CHLORIDE 0.9% FLUSH 5 ML FLUSH FLUSH SCH ×2 (12:19→20:46)
[2016-06-20] MEDS: HEPARIN SODIUM - SQ 10,000 UNITS/ML VIAL SQ SCH (12:20)
[2016-06-20] MEDS: SODIUM CHLOR 0.45% 1000 ML INJ 1,000 ML IV SCH (12:21)
--- NOTE | 2016-06-20 15:30 | HHI.CCPN ---
Subjective Remarks/Hospital Course 70-year-old female alf patient with previous history of left MCA stroke with right sided hemiparesis, schizoaffective disorder, history of intracranial aneurysmal bleed, hypertension, seizure disorder, liver cirrhosis, dementia, who was brought to the ER today brought in by EMS as a stroke alert. Patient was found less responsive than usual, left facial droop, not able to follow directions. On arrival evaluated by ER physician Dr. Reeves. CT of the head showed no acute findings but large old left MCA stroke. The findings discussed with Dr. Romano who decided that patient is not a good TPA candidate. Patient was started on Plavix due to severe aspirin allergy. UA showed evidence of UTI and cultures were done and IV antibiotics were started in the ED. Lab work showed a white count of 12, lactic acid 2.1, sodium of 166 and a new acute renal failure with BUN 67 and creatinine 4.5. Patient has chronic renal insufficiency with a baseline creatinine highest at 1.3. Initially patient was admitted to [facility] While in the ER patient' s mental status worsened and patient was intubated for airway protection I evaluated the patient in the ED. Her eyes are spontaneously open but do not follow commands right upper extremity is flaccid and patient has bilateral foot drop moves left upper extremity freely. Acute encephalopathy seems to be metabolic, secondary to her hyponatremia, renal failure and urosepsis 06/18: Afebrile. Arousable on the ventilator currently receiving peripheral IVs. Rosales placed with adequate urine output 06/19: Afebrile. Lasted 10 minutes on CPAP trials today. No bowel movement. Will initiate tube feeds today. Subjective 06/20: Afebrile. Tolerating tube feeding. One bowel movement. Still on ventilator. Failed CPAP. Objective Vital Signs Date Time Temp Pulse Resp B/P Pulse Ox O2 Delivery O2 Flow Rate FiO2 06/20/16 14:00 107 06/20/16 13:00 35 06/20/16 12:48 99 06/20/16 04:00 98.1 17 105/62 06/18/16 05:02 Room Air 06/18/16 00:20 15.00 Intake and Output 06/19/16 06/19/16 06/20/16 08:00 16:00 00:00 Intake Total 1224 ml 1100 ml 560 ml Output Total 650 ml 600 ml 550 ml Balance 574 ml 500 ml 10 ml Result Diagram: 06/20/16 0652 06/20/16 0200 Other Results Microbiology Date/Time Procedure Status Source Growth 06/17/16 20:45 Aerobic Blood Culture - Preliminary Resulted Blood Peripheral NO GROWTH IN 3 DAYS 06/17/16 20:45 Anaerobic Blood Culture - Preliminary Resulted Staphylococcus Epidermidis 06/17/16 20:45 Urine Culture - Final Complete Urine Catheterized Urine Viridans Streptococcus Grp 06/17/16 21:00 Aerobic Blood Culture - Preliminary Resulted Blood Peripheral NO GROWTH IN 3 DAYS 06/17/16 21:00 Anaerobic Blood Culture - Preliminary Resulted Blood Peripheral NO GROWTH IN 3 DAYS Imaging Last 72 hours Impressions Renal Ultrasound 06/18/16 0343 Signed Impressions: Service Date/Time: Saturday, June 18, 2016 08:15 - CONCLUSION: 1. Increased echogenicity which can be seen with medical renal disease. Right kidney is slightly small in size. 2. Urinary bladder is decompressed by Rosales catheter. Gideon De La Fuente MD Brain MRI 06/18/16 0102 Signed Impressions: Service Date/Time: Saturday, June 18, 2016 02:28 - CONCLUSION: 1. Widespread encephalomalacia throughout the left cerebral hemisphere. An area of acute infarction is not clearly seen. There is very prominent expansion of the left lateral ventricle. 2. Suspected underlying small vessel ischemic change in the white matter on the right hemisphere. 3. Areas of signal abnormality on the SWI images related to prior areas of hemorrhage. No acute hemorrhage is seen. Kye Montiel MD Chest X-Ray 06/18/16 0044 Signed Impressions: Service Date/Time: Saturday, June 18, 2016 01:19 - CONCLUSION: ET tube in good position. Kye Montiel MD Head Magnetic Resonance Angiography 06/18/16 0000 Signed Impressions: Service Date/Time: Saturday, June 18, 2016 02:28 - CONCLUSION: No acute areas of occlusion. There is asymmetric and diminished flow in the more distal left middle cerebral artery territory. Kye Montiel MD Carotid Artery Ultrasound 06/18/16 0000 Signed Impressions: Service Date/Time: Saturday, June 18, 2016 07:56 - CONCLUSION: 1. Severe plaque in the right proximal right internal carotid artery but no hemodynamically significant stenosis identified. May consider a carotid CTA to ensure no significant stenosis. 2. No significant stenosis in the left carotid artery. Gideon De La Fuente MD Objective Remarks GENERAL: 70-year-old well-nourished, well-developed elderly -[place] female patient currently resting in bed SKIN: Warm and dry. No rash HEAD: Normocephalic. EYES: Pupils are equal, round, reactive to light bilaterally around 3 mm. ENT: Orotracheally intubated NECK: Supple, trachea midline. CARDIOVASCULAR: Regular rate and rhythm S1, S2. No S4. Without murmurs, gallops, or rubs. RESPIRATORY: Breath sounds equal bilaterally. No accessory muscle use. GASTROINTESTINAL: Abdomen soft, non-tender, nondistended. Hypoactive bowel sounds MUSCULOSKELETAL: No new skin peripheral edema. Bilateral foot drop NEUROLOGICAL: Intubated sedated with propofol. Eyes open spontaneously. Currently falling commands. Spontaneously moving left upper extremity, flaccid right upper extremity. Bilateral foot drop but withdraws to pain A/P Assessment and Plan NEURO/PSYCH: Acute metabolic encephalopathy Probable acute stroke History of left MCA stroke with right hemiparesis History of intracranial aneurysm and bleed Seizure disorder Dementia disorder NOS Schizoaffective disorder History bilateral foot drop Depression -CT of the head negative for acute findings, - MRI of the brain revealed extensive encephalomalacia left side including the frontal, parietal and temporal regions. No signs of acute CVA. MRA brain showedno focal signs of stenosis but decreased blood flow in the left MCA distribution - EEG - possible epileptiform activity in left hemisphere - Keppra 250 twice a day with 500 mg at night/home dosage -> increased to 1000 mg twice a day by Dr. Barclay -Plavix 75 mg daily started as the patient is allergic to aspirin RESP: Acute respiratory failure History of a sore sleep apnea -Assist control mechanical ventilation / -Ventilator bundle -DuoNeb every 6 hours when necessary -Spontaneous breathing trials daily -Broad spectrum antibiotics with Zosyn and Flagyl to cover for aspiration CV: Right proximal internal carotid artery plaque not hemodynamic significant Recommended CTA neck when appropriate Atherosclerotic vascular disease History of hypertension Dyslipidemia Chronic diastolic heart failure ejection fraction 55% 2012 -Hold home hypertensive medications lisinopril 20 mg twice a day and clonidine 0.1 mg twice a day at this time Inderal 10 mg 3 times a day/on metoprolol 100 mg twice a day at home. -Due to possible acute stroke, goal ideally keep systolic blood pressure >160 -One half normal saline at 42 cc an hour Continue pravastatin at 20 mg by mouth daily GI: History of GI bleed History of Lorraine-Jaimes tear Liver cirrhosis Hypoalbuminemia Gastro-Esophageal reflux disease Hiatal hernia History of esophagitis Elevated ammonia Continue with Nepro goal 50 cc an hour -IV Protonix, Colace Lactulose 30 cc twice a day. Recheck in a.m. was 122 currently 80. Added Xifaxan 550 twice a day RENAL//FEN: Acute kidney failure Chronic kidney insufficiency baseline creatinine about 1.1 Hypernatremia -Monitor renal function closely. Place Rosales catheter. -Half normal saline IV fluids -Free water replacement 150 mL every 6 hours -Renal US revealed medical renal disease right kidney. Normal left kidney. No hydronephrosis. -Urine electrolyte/eosinophils negative ID: Sepsis UTI -Empiric Zosyn and Flagyl day #4 -Follow up on blood urine and blood cultures no growth to date HEME: Mild thrombocytopenia Leukocytosis -Monitor CBC, CMP, coags ENDO: Hypernatremia - likely medication Low TSH -Electrolyte replacement protocol, sliding scale insulin if needed -Free water replacement as above Free T4 slightly elevated. T3 normal. Will likely need a recheck in a few weeks to check TSI and anti-TPO for now PROPH: -Bilateral lower extremity SCDs. IV Protonix, subcutaneous heparin LINES: -Utilize peripheral IVs, central line if needed Critical Care: The total care time was 35 minutes. Time to perform other separately billable procedures was not included in the critical care time. Hosea Gonzalez MD Jun 20, 2016 15:30 Hosea Gonzalez MD Jun 20, 2016 15:30
[2016-06-20 15:42] LABS: BICARBONATE 22.4 MEQ/L (21.0-32.0); POTASSIUM 3.5 MEQ/L (3.5-5.1)
[2016-06-20 20:25] LABS: BICARBONATE 23.3 MEQ/L (21.0-32.0); POTASSIUM 3.1 MEQ/L (3.5-5.1)
[2016-06-20] MEDS ORDERED: PROPRANOLOL HCL 10 MG TAB PO SCH (21:00)
[2016-06-20] MEDS: PROPRANOLOL HCL 10 MG TAB PO SCH (22:03)
[2016-06-21] VITALS (19 sets, daily range): BP systolic 76–106; BP diastolic 46–61; PULSE 80–99; RESP 14–20; TEMP 98.3–99.1; O2SAT 96–100
[2016-06-21] MEDS: CHLORHEXIDINE GLUCONATE 2 % 1 PACK (2 CLOTHS)(taper/protocol) TOP SCH
[2016-06-21] MEDS: HEPARIN SODIUM - SQ 10,000 UNITS/ML VIAL SQ SCH ×2 (00:45→11:18)
[2016-06-21] MEDS: PROPOFOL 1000 MG/100 ML INJ 100 ML IV SCH (00:51)
[2016-06-21] MEDS: PANTOPRAZOLE SODIUM 40 MG VIAL IV PUSH SCH (02:12)
[2016-06-21] MEDS: metroNIDAZOLE 500 MG INJ 100 ML IV SCH ×3 (02:12→17:45)
--- NOTE | 2016-06-21 05:58 | RADRPT ---
EXAM DATE/TIME: 06/21/2016 04:40 [place] COMPARISON: CHEST SINGLE AP, June 18, 2016, 1:19. INDICATIONS : Evaluate for respiratory disease. MEDICAL HISTORY : None. SURGICAL HISTORY : None. ENCOUNTER: Subsequent ACUITY: 4 - 6 days PAIN SCORE: Non-responsive. LOCATION: chest FINDINGS: A single view of the chest demonstrates the lungs to be symmetrically aerated without evidence of mas s, infiltrate or effusion. The cardiomediastinal contours are unremarkable. Osseous structures are intact. Endotracheal tube and NG tube noted. The tip of the enteric tube is at the expected location of the distal esophagus, side port overlies the midesophagus. CONCLUSION: Clear lungs. NG tube as above. Everton Archuleta MD on June 21, 2016 at 5:56 Board Certified Radiologist. This report was verified electronically.
[2016-06-21] MEDS: FREE WATER OG SCH ×4 (06:00→17:45)
[2016-06-21] MEDS: PROPRANOLOL HCL 10 MG TAB PO SCH ×3 (06:13→21:09)
[2016-06-21] MEDS: CEFEPIME INJ 2,000 MG in SODIUM CHLORIDE 0.9% INJ 100 ML IV SCH (06:13)
[2016-06-21 06:57] LABS: AUTOMATED NEUTROPHIL # 7.9 TH/MM3 (1.8-7.7); BASOPHIL % 0.3 % (0.0-2.0); EOSINOPHIL # 0.6 TH/MM3 (0-0.4); EOSINOPHIL % 4.5 % (0.0-4.0); HEMATOCRIT 30.4 % (35.0-46.0); LYMPH % 22.9 % (9.0-44.0); LYMPHOCYTE # 2.8 TH/MM3 (1.0-4.8); MEAN CELL VOLUME 82.5 FL (80.0-100.0); MEAN CORPUSCULAR HEMOGLOBIN 26.1 PG (27.0-34.0); MEAN CORPUSCULAR HGB CONC 31.7 % (32.0-36.0); MONO % 7.7 % (0.0-8.0); NEUT % 64.6 % (16.0-70.0); PLATELET COUNT 53 TH/MM3 (150-450); RED BLOOD COUNT 3.69 MIL/MM3 (4.00-5.30); RED CELL DISTRIBUTION WIDTH 14.3 % (11.6-17.2); WHITE BLOOD COUNT 12.3 TH/MM3 (4.0-11.0)
[2016-06-21 07:05] LABS: HEMO FLAGS AUTO DIFF
[2016-06-21 07:33] LABS: BICARBONATE 23.7 MEQ/L (21.0-32.0); POTASSIUM 2.7 MEQ/L (3.5-5.1)
[2016-06-21] MEDS: CHLORHEXIDINE 0.12% (ORAL KIT) 15 ML CUP MT SCH ×2 (07:45→19:56)
[2016-06-21] MEDS: SODIUM CHLORIDE 0.9% FLUSH 5 ML FLUSH FLUSH SCH ×2 (07:45→19:56)
[2016-06-21] MEDS: LACTULOSE SYRUP 20 GM/30 ML CUP PO SCH ×2 (07:45→21:10)
[2016-06-21] MEDS: DOCUSATE SODIUM 100 MG/10 ML UDC PO SCH ×2 (07:45→21:00)
[2016-06-21] MEDS: RIFAXIMIN 550 MG TAB PO SCH ×2 (07:46→21:09)
[2016-06-21] MEDS: levETIRAcetam 500 MG/5 ML UDC TUBE SCH ×2 (07:47→21:09)
[2016-06-21] MEDS: CLOPIDOGREL 75 MG TAB PO SCH (07:47)
[2016-06-21 07:50] LABS: PLATELET ESTIMATE SMEAR LOW (NORMAL); PLATELET MORPHOLOGY ENLARGED (NORMAL); SCAN/DIFF AUTO DIFF CONFIRMED
[2016-06-21] MEDS ORDERED: POTASSIUM CL 40 MEQ/30 ML LIQ UDC PO ONE (08:15)
[2016-06-21] MEDS ORDERED: POTASSIUM CHLOR 20 MEQ PREMIX 100 ML ONE (08:21)
[2016-06-21] MEDS: PRAVASTATIN SOD 20 MG TAB PO SCH (09:00)
--- NOTE | 2016-06-21 09:42 | HHI.CCPN ---
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 Patient was found less responsive than usual, left facial droop, not able to follow directions. On arrival evaluated by ER physician Dr. Reeves. CT of the head showed no acute findings but large old left MCA stroke. The findings discussed with Dr. Romano who decided that patient is not a good TPA candidate. Patient was started on Plavix due to severe aspirin allergy. UA showed evidence of UTI and cultures were done and IV antibiotics were started in the ED. Lab work showed a white count of 12, lactic acid 2.1, sodium of 166 and a new acute renal failure with BUN 67 and creatinine 4.5. Patient has chronic renal insufficiency with a baseline creatinine highest at 1.3. Initially patient was admitted to [facility]. While in the ER patient' s mental status worsened and patient was intubated for airway protection I evaluated the patient in the ED. Her eyes are spontaneously open but do not follow commands right upper extremity is flaccid and patient has bilateral foot drop moves left upper extremity freely. Acute encephalopathy seems to be metabolic, secondary to her hyponatremia, renal failure and urosepsis 06/18: Afebrile. Arousable on the ventilator currently receiving peripheral IVs. Rosales placed with adequate urine output 06/19: Afebrile. Lasted 10 minutes on CPAP trials today. No bowel movement. Will initiate tube feeds today. 06/20: Afebrile. Tolerating tube feeding. One bowel movement. Still on ventilator. Failed CPAP. Subjective 06/21 - Tmax 99.6. Currently afebrile. Tolerating tube feeds. For bowel moments. More awake on the ventilator today. Objective Vital Signs Date Time Temp Pulse Resp B/P Pulse Ox O2 Delivery O2 Flow Rate FiO2 06/21/16 07:44 100 35 06/21/16 06:00 84 06/21/16 04:00 98.7 14 106/56 06/18/16 05:02 Room Air 06/18/16 00:20 15.00 Intake and Output 06/20/16 06/20/16 06/21/16 08:00 16:00 00:00 Intake Total 555 ml 1082 ml 1281 ml Output Total 400 ml 450 ml 172 ml Balance 155 ml 632 ml 1109 ml Result Diagram: 06/21/16 0616 06/21/16 0616 Other Results Microbiology Date/Time Procedure Status Source Growth 06/21/16 06:16 Aerobic Blood Culture Received Blood Peripheral Pending 06/21/16 06:16 Anaerobic Blood Culture Received Blood Peripheral Pending 06/17/16 21:00 Aerobic Blood Culture - Preliminary Resulted Blood Peripheral NO GROWTH IN 3 DAYS 06/17/16 21:00 Anaerobic Blood Culture - Preliminary Resulted Blood Peripheral NO GROWTH IN 3 DAYS 06/17/16 20:45 Urine Culture - Final Complete Urine Catheterized Urine Viridans Streptococcus Grp Imaging Last Impressions Chest X-Ray 06/21/16 0600 Signed Impressions: Service Date/Time: Tuesday, June 21, 2016 04:40 - CONCLUSION: Clear lungs. NG tube as above. Everton Archuleta MD Renal Ultrasound 06/18/16 0343 Signed Impressions: Service Date/Time: Saturday, June 18, 2016 08:15 - CONCLUSION: 1. Increased echogenicity which can be seen with medical renal disease. Right kidney is slightly small in size. 2. Urinary bladder is decompressed by Rosales catheter. Gideon De La Fuente MD Brain MRI 06/18/16 0102 Signed Impressions: Service Date/Time: Saturday, June 18, 2016 02:28 - CONCLUSION: 1. Widespread encephalomalacia throughout the left cerebral hemisphere. An area of acute infarction is not clearly seen. There is very prominent expansion of the left lateral ventricle. 2. Suspected underlying small vessel ischemic change in the white matter on the right hemisphere. 3. Areas of signal abnormality on the SWI images related to prior areas of hemorrhage. No acute hemorrhage is seen. Kye Montiel MD Head Magnetic Resonance Angiography 06/18/16 0000 Signed Impressions: Service Date/Time: Saturday, June 18, 2016 02:28 - CONCLUSION: No acute areas of occlusion. There is asymmetric and diminished flow in the more distal left middle cerebral artery territory. Kye Montiel MD Carotid Artery Ultrasound 06/18/16 0000 Signed Impressions: Service Date/Time: Saturday, June 18, 2016 07:56 - CONCLUSION: 1. Severe plaque in the right proximal right internal carotid artery but no hemodynamically significant stenosis identified. May consider a carotid CTA to ensure no significant stenosis. 2. No significant stenosis in the left carotid artery. Gideon De La Fuente MD Head CT 06/17/16 0000 Signed Impressions: Service Date/Time: Friday, June 17, 2016 20:15 - CONCLUSION: No acute intracranial abnormality. Old left middle cerebral artery distribution infarct. Kye Young MD Objective Remarks GENERAL: 70-year-old well-nourished, well-developed elderly -[place] female patient currently resting in bed SKIN: Warm and dry. No rash HEAD: Normocephalic. EYES: Pupils are equal, round, reactive to light bilaterally around 3 mm. ENT: Orotracheally intubated NECK: Supple, trachea midline. CARDIOVASCULAR: Regular rate and rhythm S1, S2. No S4. Without murmurs, gallops, or rubs. RESPIRATORY: Breath sounds equal bilaterally. No accessory muscle use. GASTROINTESTINAL: Abdomen soft, non-tender, nondistended. Hypoactive bowel sounds MUSCULOSKELETAL: No new skin peripheral edema. Bilateral foot drop NEUROLOGICAL: Eyes open spontaneously. Currently following commands. Spontaneously moving bilateral upper and lower extremities bilaterally.. Bilateral foot drop but withdraws to pain A/P Assessment and Plan NEURO/PSYCH: Acute metabolic encephalopathy Probable acute stroke History of left MCA stroke with right hemiparesis History of intracranial aneurysm and bleed Seizure disorder Dementia disorder NOS Schizoaffective disorder History bilateral foot drop Depression -CT of the head negative for acute findings, - MRI of the brain revealed extensive encephalomalacia left side including the frontal, parietal and temporal regions. No signs of acute CVA. MRA brain showedno focal signs of stenosis but decreased blood flow in the left MCA distribution - EEG - possible epileptiform activity in left hemisphere - Keppra 250 twice a day with 500 mg at night/home dosage -> increased to 1000 mg twice a day by Dr. Griffith -Plavix 75 mg daily started as the patient is allergic to aspirin RESP: Acute respiratory failure History of a sore sleep apnea -Assist control mechanical ventilation / -Ventilator bundle -DuoNeb every 6 hours when necessary -Spontaneous breathing trials daily -Broad spectrum antibiotics with Zosyn and Flagyl to cover for aspiration CV: Right proximal internal carotid artery plaque not hemodynamic significant Recommended CTA neck when appropriate Atherosclerotic vascular disease History of hypertension Dyslipidemia Chronic diastolic heart failure ejection fraction 55% 2012 -Hold home hypertensive medications lisinopril 20 mg twice a day and clonidine 0.1 mg twice a day at this time Inderal 10 mg 3 times a day/on metoprolol 100 mg twice a day at home. Continue pravastatin at 20 mg by mouth daily GI: History of GI bleed History of Lorraine-Jaimes tear Liver cirrhosis Hypoalbuminemia Gastro-Esophageal reflux disease Hiatal hernia History of esophagitis Elevated ammonia Continue with Nepro goal 50 cc an hour -IV Protonix, Colace Lactulose 30 cc twice a day. Trending ammonia from 122 currently 50. Continue Xifaxan 550 twice a day RENAL//FEN: Acute kidney failure Chronic kidney insufficiency baseline creatinine about 1.1 Hypernatremia -Monitor renal function closely. Place Rosales catheter. -Half normal saline IV fluids -Free water replacement 150 mL every 6 hours -Renal US revealed medical renal disease right kidney. Normal left kidney. No hydronephrosis. -Urine electrolyte/eosinophils negative ID: Sepsis UTI -Empiric Zosyn and Flagyl day #5 -Follow up on blood urine and blood cultures no growth to date HEME: Mild thrombocytopenia Leukocytosis -Monitor CBC, CMP, coags ENDO: Hypernatremia - likely medication Low TSH -Electrolyte replacement protocol, sliding scale insulin if needed -Free water replacement as above Free T4 slightly elevated. T3 normal. Will likely need a recheck in a few weeks to check TSI and anti-TPO for now Start on low-dose propranolol instead of a beta luisa. Will need thyroid uptake scan when stable PROPH: -Bilateral lower extremity SCDs. IV Protonix, subcutaneous heparin LINES: -Utilize peripheral IVs, central line if needed Critical Care: The total care time was 35 minutes. Time to perform other separately billable procedures was not included in the critical care time. Hosea Gonzalez MD Jun 21, 2016 09:42
[2016-06-21] MEDS: SODIUM CHLOR 0.45% 1000 ML INJ 1,000 ML IV SCH (11:18)
--- NOTE | 2016-06-21 11:46 | HHI.PR ---
Subjective Interval History remains intubated more responsive BP low earlier this am, improved after 250cc NS bolus and decreasing sedation no fever T max 99.6 tolerating tube feed no family at bed side Vitals/Results Intake & Output 06/20/16 06/20/16 06/21/16 15:00 23:00 07:00 Intake Total 1082 ml 1281 ml 1151 ml Output Total 450 ml 172 ml 300 ml Balance 632 ml 1109 ml 851 ml Intake Oral 0 ml IV Total 641 ml 997 ml 472 ml Tube Feeding 441 ml 254 ml 349 ml Other 30 ml 330 ml Output Urine Total 450 ml 172 ml 300 ml Tube Feeding Residual Discard 0 ml # Bowel Movements 2 0 2 Vital Signs Vital Signs Date Time Temp Pulse Resp B/P Pulse Ox O2 Delivery O2 Flow Rate FiO2 06/21/16 10:00 83 06/21/16 08:00 80 06/21/16 08:00 35 06/21/16 07:44 100 35 06/21/16 06:00 84 06/21/16 04:18 100 35 06/21/16 04:00 86 06/21/16 04:00 35 06/21/16 04:00 98.7 86 14 106/56 100 06/21/16 02:00 96 06/21/16 01:18 96 35 06/21/16 00:00 99 06/21/16 00:00 35 06/21/16 00:00 98.8 99 14 96/61 100 06/20/16 22:00 109 06/20/16 20:00 99.6 112 17 113/55 100 06/20/16 20:00 35 06/20/16 20:00 112 06/20/16 18:00 101 06/20/16 16:00 106 06/20/16 16:00 98.9 106 17 86/51 100 06/20/16 16:00 35 06/20/16 15:42 99 35 06/20/16 14:00 107 06/20/16 13:00 35 06/20/16 12:48 99 35 06/20/16 12:00 98.4 97 18 134/68 100 06/20/16 12:00 35 06/20/16 12:00 105 CBC/BMP: 06/21/16 0616 06/21/16 0616 Lab Results Laboratory Tests Test 06/20/16 06/20/16 06/21/16 14:14 18:00 06:16 Sodium Level 146 MEQ/L 146 MEQ/L 146 MEQ/L Potassium Level 3.5 MEQ/L 3.1 MEQ/L 2.7 MEQ/L Chloride Level 114 MEQ/L 111 MEQ/L 113 MEQ/L Carbon Dioxide Level 22.4 MEQ/L 23.3 MEQ/L 23.7 MEQ/L Anion Gap 10 MEQ/L 12 MEQ/L 9 MEQ/L Blood Urea Nitrogen 38 MG/DL 38 MG/DL 37 MG/DL Creatinine 2.52 MG/DL 2.43 MG/DL 2.07 MG/DL Estimat Glomerular Filtration 23 ML/MIN 24 ML/MIN 29 ML/MIN Rate Random Glucose 127 MG/DL 115 MG/DL 109 MG/DL Calcium Level 8.5 MG/DL 8.2 MG/DL 8.0 MG/DL White Blood Count 12.3 TH/MM3 Red Blood Count 3.69 MIL/MM3 Hemoglobin 9.6 GM/DL Hematocrit 30.4 % Mean Corpuscular Volume 82.5 FL Mean Corpuscular Hemoglobin 26.1 PG Mean Corpuscular Hemoglobin 31.7 % Concent Red Cell Distribution Width 14.3 % Platelet Count 53 TH/MM3 Mean Platelet Volume 12.1 FL Neutrophils (%) (Auto) 64.6 % Lymphocytes (%) (Auto) 22.9 % Monocytes (%) (Auto) 7.7 % Eosinophils (%) (Auto) 4.5 % Basophils (%) (Auto) 0.3 % Neutrophils # (Auto) 7.9 TH/MM3 Lymphocytes # (Auto) 2.8 TH/MM3 Monocytes # (Auto) 0.9 TH/MM3 Eosinophils # (Auto) 0.6 TH/MM3 Basophils # (Auto) 0.0 TH/MM3 CBC Comment AUTO DIFF Differential Comment AUTO DIFF CONFIRMED Platelet Estimate LOW Platelet Morphology Comment ENLARGED Ammonia 50 MCMOL/L Microbiology Microbiology 06/20/16 Aerobic Blood Culture - Preliminary, Resulted NO GROWTH IN 1 DAY 06/20/16 Anaerobic Blood Culture - Preliminary, Resulted NO GROWTH IN 1 DAY 06/21/16 Aerobic Blood Culture, Received Pending 06/21/16 Anaerobic Blood Culture, Received Pending Physical Exam General General Appearance: No Acute Distress Appearance Remarks intubated and sedated Eyes Eye Exam: Pupils Equal, Pupils Reactive Neck Neck Exam: Neck Supple Pulmonary Resp Exam: No Distress, Crackles, Diminished Breath Sounds Cardiology CV Exam: Regular Gastrointestinal/Abdomen GI Exam: Soft, Non-Tender, Bowel Sounds Present Integumentary Skin Exam: Clear, Warm, Dry Extremeties Extremities Exam: No Edema Neurologic Neuro Exam: Sedated Assessment/Plan Assessment/Plan Acute metabolic encephalopathy Probable acute stroke Seizure disorder Dementia disorder NOS Schizoaffective disorder Acute respiratory failure History of hypertension Dyslipidemia Chronic diastolic heart failure ejection fraction 55% h/o Liver cirrhosis hyper ammonemia KARTHIK/CKD hypernatremia UTI/sepsis/ BActeremia (1 of 4 + for GPC) low TSH History of left MCA stroke with right hemiparesis History of intracranial aneurysm and bleed Appreciate CCM input/help Vent management and weaning per [facility] CPAP trials EEG with possible epileptiform discharges Neurology following Keppra dose increased No acute CVA, Right prox ICA Plaque, not hemodynamically significant On lactulose and Rifaximin for hyperammonemia, repeat ammonia improving NPO, tube feeds i/v protonix h & H stable 1/2 NS and free water, sodium down to 146 creatinine continues to improve , 2.04 today broad spectrum antibiotics cefepime and Flagyl blood culture likely contamination urine culture growing strept Viridans, awaiting susceptibilities labs in am discussed with nursing staff discussed with patient no family at bed side Marcela Bro MD Jun 21, 2016 11:46
[2016-06-21 19:26] LABS: BICARBONATE 21.4 MEQ/L (21.0-32.0); MAGNESIUM 2.5 MG/DL (1.5-2.5); POTASSIUM 3.8 MEQ/L (3.5-5.1)
[2016-06-21] MEDS ORDERED: fentaNYL DRIP 250 ML IV SCH (22:00)
[2016-06-21] MEDS ORDERED: MIDAZOLAM 100 MG/ML INJ 100 ML IV SCH (22:00)
[2016-06-21 23:53] LABS: THYROGLOB ABS 53 IU/mL (< OR = 1)
[2016-06-22] VITALS (19 sets, daily range): BP systolic 86–122; BP diastolic 48–59; PULSE 79–102; RESP 14–18; TEMP 98.2–98.9; O2SAT 95–100
[2016-06-22] MEDS: HEPARIN SODIUM - SQ 10,000 UNITS/ML VIAL SQ SCH ×2 (00:08→16:04)
[2016-06-22] MEDS: PANTOPRAZOLE SODIUM 40 MG VIAL IV PUSH SCH (00:08)
[2016-06-22] MEDS: CHLORHEXIDINE GLUCONATE 2 % 1 PACK (2 CLOTHS)(taper/protocol) TOP SCH (01:00)
[2016-06-22] MEDS: metroNIDAZOLE 500 MG INJ 100 ML IV SCH ×3 (02:19→18:29)
[2016-06-22 03:49] LABS: THYROGLOBULN 17.8 ng/mL (())
[2016-06-22 05:15] LABS: AUTOMATED NEUTROPHIL # 5.6 TH/MM3 (1.8-7.7); BASOPHIL % 0.2 % (0.0-2.0); EOSINOPHIL # 0.3 TH/MM3 (0-0.4); EOSINOPHIL % 3.8 % (0.0-4.0); HEMATOCRIT 29.8 % (35.0-46.0); LYMPH % 24.7 % (9.0-44.0); LYMPHOCYTE # 2.3 TH/MM3 (1.0-4.8); MEAN CELL VOLUME 83.8 FL (80.0-100.0); MEAN CORPUSCULAR HEMOGLOBIN 26.6 PG (27.0-34.0); MEAN CORPUSCULAR HGB CONC 31.8 % (32.0-36.0); MONO % 10.4 % (0.0-8.0); NEUT % 60.9 % (16.0-70.0); PLATELET COUNT 60 TH/MM3 (150-450); RED BLOOD COUNT 3.56 MIL/MM3 (4.00-5.30); RED CELL DISTRIBUTION WIDTH 14.4 % (11.6-17.2); WHITE BLOOD COUNT 9.1 TH/MM3 (4.0-11.0)
[2016-06-22 05:39] LABS: ALKALINE PHOSPHATASE 67 U/L (45-117); ALT (GPT) 15 U/L (10-53); ANION GAP 10 MEQ/L (5-15); AST (GOT) 24 U/L (15-37); BICARBONATE 23.1 MEQ/L (21.0-32.0); BLOOD UREA NITROGEN 33 MG/DL (7-18); CHLORIDE 114 MEQ/L (98-107); GLOMERULAR FILTRATION RATE 35 ML/MIN (>89); MAGNESIUM 2.6 MG/DL (1.5-2.5); POTASSIUM 3.4 MEQ/L (3.5-5.1); SODIUM (NA) 147 MEQ/L (136-145); TOTAL BILIRUBIN ADULT 0.4 MG/DL (0.2-1.0)
[2016-06-22] MEDS: FREE WATER OG SCH ×4 (05:43→18:00)
[2016-06-22] MEDS: CEFEPIME INJ 2,000 MG in SODIUM CHLORIDE 0.9% INJ 100 ML IV SCH (05:43)
[2016-06-22] MEDS: PROPRANOLOL HCL 10 MG TAB PO SCH ×3 (05:43→22:00)
[2016-06-22 05:49] LABS: HEMO FLAGS DIFF FINAL
[2016-06-22] MEDS: CLOPIDOGREL 75 MG TAB PO SCH (09:47)
[2016-06-22] MEDS: PRAVASTATIN SOD 20 MG TAB PO SCH (09:47)
[2016-06-22] MEDS: RIFAXIMIN 550 MG TAB PO SCH ×2 (09:47→20:31)
[2016-06-22] MEDS: DOCUSATE SODIUM 100 MG/10 ML UDC PO SCH ×2 (09:48→20:31)
[2016-06-22] MEDS: LACTULOSE SYRUP 20 GM/30 ML CUP PO SCH ×2 (09:48→20:31)
[2016-06-22] MEDS: SODIUM CHLORIDE 0.9% FLUSH 5 ML FLUSH FLUSH SCH ×2 (09:48→20:31)
[2016-06-22] MEDS: levETIRAcetam 500 MG/5 ML UDC TUBE SCH ×2 (09:48→20:31)
--- NOTE | 2016-06-22 12:11 | HHI.PR ---
Subjective Interval History patient appears comfortable remains intubated currently on AC mode remains sedated BP stable on tube feeds no fever no family at bedside Vitals/Results Intake & Output 06/21/16 06/21/16 06/22/16 15:00 23:00 07:00 Intake Total 860 ml 610 ml 467 ml Output Total 450 ml 275 ml 250 ml Balance 410 ml 335 ml 217 ml IV Total 500 ml 384 ml 467 ml Tube Feeding 210 ml 166 ml Other 150 ml 60 ml Output Urine Total 450 ml 275 ml 200 ml Stool Total 50 ml # Bowel Movements 2 1 2 Vital Signs Vital Signs Date Time Temp Pulse Resp B/P Pulse Ox O2 Delivery O2 Flow Rate FiO2 06/22/16 10:00 80 06/22/16 08:29 100 35 06/22/16 08:00 35 06/22/16 08:00 80 06/22/16 06:00 93 06/22/16 04:13 100 35 06/22/16 04:00 79 06/22/16 04:00 98.4 79 14 98/59 100 06/22/16 04:00 35 06/22/16 02:00 83 06/22/16 01:16 100 35 06/22/16 00:00 89 06/22/16 00:00 98.9 89 14 86/48 100 06/22/16 00:00 35 06/21/16 22:12 100 35 06/21/16 22:00 94 06/21/16 20:00 91 06/21/16 20:00 98.3 91 20 105/56 100 06/21/16 20:00 35 06/21/16 19:30 100 35 06/21/16 18:00 88 06/21/16 16:09 100 35 06/21/16 16:08 35 06/21/16 16:00 99.1 83 14 103/56 100 06/21/16 16:00 83 06/21/16 16:00 35 06/21/16 14:00 90 06/21/16 12:14 100 35 CBC/BMP: 06/22/16 0445 06/22/16 0445 Lab Results Laboratory Tests Test 06/21/16 06/22/16 18:12 04:45 Sodium Level 146 MEQ/L 147 MEQ/L Potassium Level 3.8 MEQ/L 3.4 MEQ/L Chloride Level 116 MEQ/L 114 MEQ/L Carbon Dioxide Level 21.4 MEQ/L 23.1 MEQ/L Anion Gap 9 MEQ/L 10 MEQ/L Blood Urea Nitrogen 35 MG/DL 33 MG/DL Creatinine 1.92 MG/DL 1.77 MG/DL Estimat Glomerular Filtration 31 ML/MIN 35 ML/MIN Rate Random Glucose 100 MG/DL 98 MG/DL Calcium Level 8.1 MG/DL 8.2 MG/DL Phosphorus Level 1.8 MG/DL 2.1 MG/DL Magnesium Level 2.5 MG/DL 2.6 MG/DL White Blood Count 9.1 TH/MM3 Red Blood Count 3.56 MIL/MM3 Hemoglobin 9.5 GM/DL Hematocrit 29.8 % Mean Corpuscular Volume 83.8 FL Mean Corpuscular Hemoglobin 26.6 PG Mean Corpuscular Hemoglobin 31.8 % Concent Red Cell Distribution Width 14.4 % Platelet Count 60 TH/MM3 Mean Platelet Volume 11.5 FL Neutrophils (%) (Auto) 60.9 % Lymphocytes (%) (Auto) 24.7 % Monocytes (%) (Auto) 10.4 % Eosinophils (%) (Auto) 3.8 % Basophils (%) (Auto) 0.2 % Neutrophils # (Auto) 5.6 TH/MM3 Lymphocytes # (Auto) 2.3 TH/MM3 Monocytes # (Auto) 1.0 TH/MM3 Eosinophils # (Auto) 0.3 TH/MM3 Basophils # (Auto) 0.0 TH/MM3 CBC Comment DIFF FINAL Differential Comment Total Bilirubin 0.4 MG/DL Aspartate Amino Transf 24 U/L (AST/SGOT) Alanine Aminotransferase 15 U/L (ALT/SGPT) Alkaline Phosphatase 67 U/L Ammonia 22 MCMOL/L Total Protein 6.5 GM/DL Albumin 2.1 GM/DL Physical Exam General General Appearance: No Acute Distress Appearance Remarks intubated and sedated Eyes Eye Exam: Pupils Equal, Pupils Reactive Neck Neck Exam: Neck Supple Pulmonary Resp Exam: No Distress, Crackles, Diminished Breath Sounds Cardiology CV Exam: Regular Gastrointestinal/Abdomen GI Exam: Soft, Non-Tender, Bowel Sounds Present Integumentary Skin Exam: Clear, Warm, Dry Extremeties Extremities Exam: No Edema Neurologic Neuro Exam: Sedated Assessment/Plan Assessment/Plan Acute metabolic encephalopathy Probable acute stroke Seizure disorder Dementia disorder NOS Schizoaffective disorder Acute respiratory failure History of hypertension Dyslipidemia Chronic diastolic heart failure ejection fraction 55% h/o Liver cirrhosis hyper ammonemia KARTHIK/CKD hypernatremia UTI/sepsis/ BActeremia (1 of 4 + for GPC) low TSH History of left MCA stroke with right hemiparesis History of intracranial aneurysm and bleed Appreciate CCM input/help Vent management and weaning per [facility] CPAP trials EEG with possible epileptiform discharges Neurology following Keppra dose increased No acute CVA, Right prox ICA Plaque, not hemodynamically significant On lactulose and Rifaximin for hyperammonemia, repeat ammonia improving NPO, tube feeds Nepro at 40 cc/hr i/v protonix h & H stable 1/2 NS and free water, sodium down to 146 creatinine continues to improve , 1.77 today broad spectrum antibiotics cefepime and Flagyl blood culture likely contamination urine culture growing strept Viridans. labs in am discussed with patient no family at bed side Marcela Bro MD Jun 22, 2016 12:11
[2016-06-22] MEDS ORDERED: POTASSIUM PHOSPHATE INJ 30 MMOL in SODIUM CHLOR 0.9% 250 ML INJ 250 ML IV ONE (14:00)
[2016-06-22] MEDS: SODIUM CHLOR 0.45% 1000 ML INJ 1,000 ML IV SCH (16:04)
[2016-06-22] MEDS: CHLORHEXIDINE 0.12% (ORAL KIT) 15 ML CUP MT SCH ×2 (16:05→20:30)
--- NOTE | 2016-06-22 16:34 | HHI.CCPN ---
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 Patient was found less responsive than usual, left facial droop, not able to follow directions. On arrival evaluated by ER physician Dr. Reeves. CT of the head showed no acute findings but large old left MCA stroke. The findings discussed with Dr. Romano who decided that patient is not a good TPA candidate. Patient was started on Plavix due to severe aspirin allergy. UA showed evidence of UTI and cultures were done and IV antibiotics were started in the ED. Lab work showed a white count of 12, lactic acid 2.1, sodium of 166 and a new acute renal failure with BUN 67 and creatinine 4.5. Patient has chronic renal insufficiency with a baseline creatinine highest at 1.3. Initially patient was admitted to [facility]. While in the ER patient' s mental status worsened and patient was intubated for airway protection I evaluated the patient in the ED. Her eyes are spontaneously open but do not follow commands right upper extremity is flaccid and patient has bilateral foot drop moves left upper extremity freely. Acute encephalopathy seems to be metabolic, secondary to her hyponatremia, renal failure and urosepsis 06/18: Afebrile. Arousable on the ventilator currently receiving peripheral IVs. Rosales placed with adequate urine output 06/19: Afebrile. Lasted 10 minutes on CPAP trials today. No bowel movement. Will initiate tube feeds today. 06/20: Afebrile. Tolerating tube feeding. One bowel movement. Still on ventilator. Failed CPAP. 06/21 - Tmax 99.6. Currently afebrile. Tolerating tube feeds. For bowel moments. More awake on the ventilator today. Subjective 06/22: Resting comfortably in bed in no acute distress. Trunk protruding. Intermittent coughing spells with copious thick yellow oral tracheal secretions. Objective Vital Signs Date Time Temp Pulse Resp B/P Pulse Ox O2 Delivery O2 Flow Rate FiO2 06/22/16 14:00 91 06/22/16 12:39 100 35 06/22/16 04:00 98.4 14 98/59 Intake and Output 06/21/16 06/21/16 06/22/16 08:00 16:00 00:00 Intake Total 1151 ml 860 ml 610 ml Output Total 300 ml 450 ml 275 ml Balance 851 ml 410 ml 335 ml Result Diagram: 06/22/16 0445 06/22/16 0445 Other Results Microbiology Date/Time Procedure Status Source Growth 06/21/16 06:16 Aerobic Blood Culture - Preliminary Resulted Blood Peripheral NO GROWTH IN 1 DAY 06/21/16 06:16 Anaerobic Blood Culture - Preliminary Resulted Blood Peripheral NO GROWTH IN 1 DAY 06/17/16 21:00 Aerobic Blood Culture - Final Complete Blood Peripheral NO GROWTH IN 5 DAYS 06/17/16 21:00 Anaerobic Blood Culture - Final Complete Blood Peripheral NO GROWTH IN 5 DAYS 06/17/16 20:45 Urine Culture - Final Complete Urine Catheterized Urine Viridans Streptococcus Grp Imaging Last Impressions Chest X-Ray 06/21/16 0600 Signed Impressions: Service Date/Time: Tuesday, June 21, 2016 04:40 - CONCLUSION: Clear lungs. NG tube as above. Everton Archuleta MD Renal Ultrasound 06/18/16 0343 Signed Impressions: Service Date/Time: Saturday, June 18, 2016 08:15 - CONCLUSION: 1. Increased echogenicity which can be seen with medical renal disease. Right kidney is slightly small in size. 2. Urinary bladder is decompressed by Rosales catheter. Gideon De La Fuente MD Brain MRI 06/18/16 0102 Signed Impressions: Service Date/Time: Saturday, June 18, 2016 02:28 - CONCLUSION: 1. Widespread encephalomalacia throughout the left cerebral hemisphere. An area of acute infarction is not clearly seen. There is very prominent expansion of the left lateral ventricle. 2. Suspected underlying small vessel ischemic change in the white matter on the right hemisphere. 3. Areas of signal abnormality on the SWI images related to prior areas of hemorrhage. No acute hemorrhage is seen. Kye Montiel MD Head Magnetic Resonance Angiography 06/18/16 0000 Signed Impressions: Service Date/Time: Saturday, June 18, 2016 02:28 - CONCLUSION: No acute areas of occlusion. There is asymmetric and diminished flow in the more distal left middle cerebral artery territory. Kye Montiel MD Carotid Artery Ultrasound 06/18/16 0000 Signed Impressions: Service Date/Time: Saturday, June 18, 2016 07:56 - CONCLUSION: 1. Severe plaque in the right proximal right internal carotid artery but no hemodynamically significant stenosis identified. May consider a carotid CTA to ensure no significant stenosis. 2. No significant stenosis in the left carotid artery. Gideon De La Fuente MD Head CT 06/17/16 0000 Signed Impressions: Service Date/Time: Friday, June 17, 2016 20:15 - CONCLUSION: No acute intracranial abnormality. Old left middle cerebral artery distribution infarct. Kye Young MD Objective Remarks GENERAL: 70-year-old well-nourished, well-developed elderly -[place] female patient currently resting in bed SKIN: Warm and dry. No rash HEAD: Normocephalic. EYES: Pupils are equal, round, reactive to light bilaterally around 3 mm. ENT: Orotracheally intubated. Tongue is somewhat protruding. NECK: Supple, trachea midline. CARDIOVASCULAR: Regular rate and rhythm S1, S2. No S4. Without murmurs, gallops, or rubs. RESPIRATORY: Breath sounds equal bilaterally. No accessory muscle use. GASTROINTESTINAL: Abdomen soft, non-tender, nondistended. Hypoactive bowel sounds MUSCULOSKELETAL: No new skin peripheral edema. Bilateral foot drop NEUROLOGICAL: Eyes open spontaneously. Currently following commands. Spontaneously moving bilateral upper and lower extremities bilaterally.. Bilateral foot drop but withdraws to pain A/P Assessment and Plan NEURO/PSYCH: Acute metabolic encephalopathy Probable acute stroke History of left MCA stroke with right hemiparesis History of intracranial aneurysm and bleed Seizure disorder Dementia disorder NOS Schizoaffective disorder History bilateral foot drop Depression -CT of the head negative for acute findings, - MRI of the brain revealed extensive encephalomalacia left side including the frontal, parietal and temporal regions. No signs of acute CVA. MRA brain showedno focal signs of stenosis but decreased blood flow in the left MCA distribution - EEG - possible epileptiform activity in left hemisphere - Keppra 250 twice a day with 500 mg at night/home dosage -> increased to 1000 mg twice a day by Dr. Griffith -Plavix 75 mg daily started as the patient is allergic to aspirin RESP: Acute respiratory failure History of a sore sleep apnea -Assist control mechanical ventilation 14/500/5/35 - CPAP 10/5 and 35%. -Ventilator bundle -DuoNeb every 6 hours when necessary -Spontaneous breathing trials daily -Broad spectrum antibiotics with Zosyn and Flagyl to cover for aspiration - Barrier to extubation currently appears to be secretions. CV: Right proximal internal carotid artery plaque not hemodynamic significant Recommended CTA neck when appropriate Atherosclerotic vascular disease History of hypertension Dyslipidemia Chronic diastolic heart failure ejection fraction 55% 2012 -Hold home hypertensive medications lisinopril 20 mg twice a day and clonidine 0.1 mg twice a day at this time Inderal 10 mg 3 times a day/on metoprolol 100 mg twice a day at home. Continue pravastatin at 20 mg by mouth daily GI: History of GI bleed History of Lorraine-Jaimes tear Liver cirrhosis Hypoalbuminemia Gastro-Esophageal reflux disease Hiatal hernia History of esophagitis Elevated ammonia Continue with Nepro goal 50 cc an hour -IV Protonix, Colace Lactulose 30 cc twice a day. Trending ammonia from 122 currently 22. Continue Xifaxan 550 twice a day RENAL//FEN: Acute kidney failure Chronic kidney insufficiency baseline creatinine about 1.1 Hypernatremia -Monitor renal function closely. Place Rosales catheter. -Free water replacement 250 mL every 6 hours -Renal US revealed medical renal disease right kidney. Normal left kidney. No hydronephrosis. -Urine electrolyte/eosinophils negative ID: Sepsis UTI -Empiric Zosyn and Flagyl day #6 -Follow up on blood urine and blood cultures no growth to date HEME: Mild thrombocytopenia Leukocytosis -Monitor CBC, CMP, coags ENDO: Hypernatremia - likely medication Low TSH -Electrolyte replacement protocol, sliding scale insulin if needed -Free water replacement as above Free T4 slightly elevated. T3 normal. Will likely need a recheck in a few weeks to check TSI and anti-TPO for now Start on low-dose propranolol instead of a beta luisa. Will need thyroid uptake scan when stable Started on Tapazole 5 mg 3 times a day PROPH: -Bilateral lower extremity SCDs. IV Protonix, subcutaneous heparin LINES: -Utilize peripheral IVs, central line if needed Critical Care: The total care time was 35 minutes. Time to perform other separately billable procedures was not included in the critical care time. Hosea Gonzalez MD Jun 22, 2016 16:33 Hosea Gonzalez MD Jun 22, 2016 16:33
--- NOTE | 2016-06-22 23:57 | RADRPT ---
EXAM DATE/TIME: 06/22/2016 21:59 [facility] COMPARISON: No previous studies available for comparison. INDICATIONS : Palpable mass. MEDICAL HISTORY : Gastroesophageal reflux disease. Cirrhosis. Seizures. Intracerebral hemorrhage. Dysphagia. Congestive heart failure. Hyperlipidemia. Pleural effusion. Asthma. Sleep apnea. Gastrointestinal bleed. Inflam matory bowel disease. . Schizophrenia. Depression. Anxiety. Left breast cancer. MRSA. SURGICAL HISTORY : Peg tube placement. ENCOUNTER: Initial ACUITY: 1 day PAIN SCORE: 0/10 LOCATION: Bilateral neck MEASUREMENTS: RIGHT LOBE: 4.1 x 2.1 x 1.7 cm LEFT LOBE: 4.6 x 3.6 x 2.7 cm FINDINGS: Study is limited secondary to patient being on a ventilator with contractures. There is a complex cys tic mass with internal septation of the left thyroid lobe measured 4.6 x 3.1 x 2.1 cm. No internal bl ood flow seen on color Doppler imaging. The right thyroid lobe and isthmus are normal. CONCLUSION: Complex cystic left thyroid mass measuring 4.6 cm. Everton Archuleta MD on June 22, 2016 at 23:54 Board Certified Radiologist. This report was verified electronically.
[2016-06-23] VITALS (19 sets, daily range): BP systolic 93–131; BP diastolic 56–71; PULSE 95–114; RESP 14–20; TEMP 98.3–98.7; O2SAT 96–100
[2016-06-23] MEDS: PANTOPRAZOLE SODIUM 40 MG VIAL IV PUSH SCH (00:01)
[2016-06-23] MEDS: metroNIDAZOLE 500 MG INJ 100 ML IV SCH ×3 (03:10→18:28)
[2016-06-23] MEDS: CHLORHEXIDINE GLUCONATE 2 % 1 PACK (2 CLOTHS)(taper/protocol) TOP SCH (03:10)
[2016-06-23] MEDS: CEFEPIME INJ 2,000 MG in SODIUM CHLORIDE 0.9% INJ 100 ML IV SCH (04:57)
[2016-06-23] MEDS: PROPRANOLOL HCL 10 MG TAB PO SCH ×2 (04:57→15:37)
[2016-06-23] MEDS: FREE WATER OG SCH ×4 (04:57→18:00)
[2016-06-23] MEDS: METHIMAZOLE 5 MG TAB PO SCH ×3 (04:57→15:37)
[2016-06-23 05:45] LABS: AUTOMATED NEUTROPHIL # 6.4 TH/MM3 (1.8-7.7); BASOPHIL % 0.3 % (0.0-2.0); EOSINOPHIL # 0.4 TH/MM3 (0-0.4); EOSINOPHIL % 3.8 % (0.0-4.0); HEMATOCRIT 30.4 % (35.0-46.0); LYMPHOCYTE # 2.5 TH/MM3 (1.0-4.8); MEAN CELL VOLUME 82.8 FL (80.0-100.0); MEAN CORPUSCULAR HEMOGLOBIN 27.1 PG (27.0-34.0); MEAN CORPUSCULAR HGB CONC 32.7 % (32.0-36.0); NEUT % 60.9 % (16.0-70.0); PLATELET COUNT 69 TH/MM3 (150-450); RED BLOOD COUNT 3.67 MIL/MM3 (4.00-5.30); RED CELL DISTRIBUTION WIDTH 14.2 % (11.6-17.2); WHITE BLOOD COUNT 10.5 TH/MM3 (4.0-11.0)
[2016-06-23 05:53] LABS: HEMO FLAGS DIFF FINAL
[2016-06-23 06:12] LABS: BICARBONATE 23.1 MEQ/L (21.0-32.0); MAGNESIUM 2.6 MG/DL (1.5-2.5); POTASSIUM 3.7 MEQ/L (3.5-5.1)
[2016-06-23] MEDS: levETIRAcetam 500 MG/5 ML UDC TUBE SCH ×2 (09:24→19:48)
[2016-06-23] MEDS: CHLORHEXIDINE 0.12% (ORAL KIT) 15 ML CUP MT SCH ×2 (09:25→19:47)
[2016-06-23] MEDS: RIFAXIMIN 550 MG TAB PO SCH ×2 (09:25→19:48)
[2016-06-23] MEDS: DOCUSATE SODIUM 100 MG/10 ML UDC PO SCH ×2 (09:25→19:48)
[2016-06-23] MEDS: CLOPIDOGREL 75 MG TAB PO SCH (09:25)
[2016-06-23] MEDS: PRAVASTATIN SOD 20 MG TAB PO SCH (09:25)
[2016-06-23] MEDS: SODIUM CHLORIDE 0.9% FLUSH 5 ML FLUSH FLUSH SCH ×2 (09:25→19:48)
[2016-06-23] MEDS: LACTULOSE SYRUP 20 GM/30 ML CUP PO SCH ×2 (09:26→19:48)
[2016-06-23] MEDS ORDERED: POTASSIUM CL 40 MEQ/30 ML LIQ UDC PO ONE (10:00)
--- NOTE | 2016-06-23 10:14 | HHI.CCPN ---
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 Patient was found less responsive than usual, left facial droop, not able to follow directions. On arrival evaluated by ER physician Dr. Reeves. CT of the head showed no acute findings but large old left MCA stroke. The findings discussed with Dr. Romano who decided that patient is not a good TPA candidate. Patient was started on Plavix due to severe aspirin allergy. UA showed evidence of UTI and cultures were done and IV antibiotics were started in the ED. Lab work showed a white count of 12, lactic acid 2.1, sodium of 166 and a new acute renal failure with BUN 67 and creatinine 4.5. Patient has chronic renal insufficiency with a baseline creatinine highest at 1.3. Initially patient was admitted to [facility]. While in the ER patient' s mental status worsened and patient was intubated for airway protection I evaluated the patient in the ED. Her eyes are spontaneously open but do not follow commands right upper extremity is flaccid and patient has bilateral foot drop moves left upper extremity freely. Acute encephalopathy seems to be metabolic, secondary to her hyponatremia, renal failure and urosepsis 06/18: Afebrile. Arousable on the ventilator currently receiving peripheral IVs. Rosales placed with adequate urine output 06/19: Afebrile. Lasted 10 minutes on CPAP trials today. No bowel movement. Will initiate tube feeds today. 06/20: Afebrile. Tolerating tube feeding. One bowel movement. Still on ventilator. Failed CPAP. 06/21 - Tmax 99.6. Currently afebrile. Tolerating tube feeds. For bowel moments. More awake on the ventilator today. 06/22: Resting comfortably in bed in no acute distress. Tongue protruding. Intermittent coughing spells with copious thick yellow oral tracheal secretions. Subjective 06/23: Currently afebrile. Parallel held overnight secondary to low blood pressures. Became more tachycardic. Copious oral secretions. Minimal oral tracheal secretions. Positive BM. Objective Vital Signs Date Time Temp Pulse Resp B/P Pulse Ox O2 Delivery O2 Flow Rate FiO2 06/23/16 09:20 100 35 06/23/16 06:00 109 06/23/16 04:00 98.7 14 93/57 Intake and Output 06/22/16 06/22/16 06/23/16 08:00 16:00 00:00 Intake Total 467 ml 1158 ml 585 ml Output Total 250 ml 400 ml 550 ml Balance 217 ml 758 ml 35 ml Result Diagram: 06/23/16 0510 06/23/16 0510 Other Results Microbiology Date/Time Procedure Status Source Growth 06/21/16 06:16 Aerobic Blood Culture - Preliminary Resulted Blood Peripheral NO GROWTH IN 1 DAY 06/21/16 06:16 Anaerobic Blood Culture - Preliminary Resulted Blood Peripheral NO GROWTH IN 1 DAY Imaging Last Impressions Thyroid Ultrasound 06/22/16 0000 Signed Impressions: Service Date/Time: Wednesday, June 22, 2016 21:59 - CONCLUSION: Complex cystic left thyroid mass measuring 4.6 cm. Everton Archuleta MD Chest X-Ray 06/21/16 0600 Signed Impressions: Service Date/Time: Tuesday, June 21, 2016 04:40 - CONCLUSION: Clear lungs. NG tube as above. Everton Archuleta MD Renal Ultrasound 06/18/16 0343 Signed Impressions: Service Date/Time: Saturday, June 18, 2016 08:15 - CONCLUSION: 1. Increased echogenicity which can be seen with medical renal disease. Right kidney is slightly small in size. 2. Urinary bladder is decompressed by Rosales catheter. Gideon De La Fuente MD Brain MRI 06/18/16 0102 Signed Impressions: Service Date/Time: Saturday, June 18, 2016 02:28 - CONCLUSION: 1. Widespread encephalomalacia throughout the left cerebral hemisphere. An area of acute infarction is not clearly seen. There is very prominent expansion of the left lateral ventricle. 2. Suspected underlying small vessel ischemic change in the white matter on the right hemisphere. 3. Areas of signal abnormality on the SWI images related to prior areas of hemorrhage. No acute hemorrhage is seen. Kye Montiel MD Head Magnetic Resonance Angiography 06/18/16 0000 Signed Impressions: Service Date/Time: Saturday, June 18, 2016 02:28 - CONCLUSION: No acute areas of occlusion. There is asymmetric and diminished flow in the more distal left middle cerebral artery territory. Kye Montiel MD Carotid Artery Ultrasound 06/18/16 0000 Signed Impressions: Service Date/Time: Saturday, June 18, 2016 07:56 - CONCLUSION: 1. Severe plaque in the right proximal right internal carotid artery but no hemodynamically significant stenosis identified. May consider a carotid CTA to ensure no significant stenosis. 2. No significant stenosis in the left carotid artery. Gideon De La Fuente MD Head CT 06/17/16 0000 Signed Impressions: Service Date/Time: Friday, June 17, 2016 20:15 - CONCLUSION: No acute intracranial abnormality. Old left middle cerebral artery distribution infarct. Kye Young MD Objective Remarks GENERAL: 70-year-old well-nourished, well-developed elderly -[place] female patient currently resting in bed SKIN: Warm and dry. No rash HEAD: Normocephalic. EYES: Pupils are equal, round, reactive to light bilaterally around 3 mm. ENT: Orotracheally intubated. Tongue is somewhat protruding. NECK: Supple, trachea midline. Mobile fluctuant mass involving left thyroid CARDIOVASCULAR: Regular rate and rhythm S1, S2. No S4. Without murmurs, gallops, or rubs. RESPIRATORY: Breath sounds equal bilaterally. No accessory muscle use. GASTROINTESTINAL: Abdomen soft, non-tender, nondistended. Hypoactive bowel sounds MUSCULOSKELETAL: No new skin peripheral edema. Bilateral foot drop NEUROLOGICAL: Eyes open spontaneously. Currently following commands. Spontaneously moving bilateral upper and lower extremities bilaterally.. Bilateral foot drop but withdraws to pain Urinary Catheter: Yes Assessment to: Continue Rosales insert reason: Measure Accurate Output Vascular Central Line Catheter: No Assessment to: Continue A/P Assessment and Plan NEURO/PSYCH: Acute metabolic encephalopathy Probable acute stroke History of left MCA stroke with right hemiparesis History of intracranial aneurysm and bleed Seizure disorder Dementia disorder NOS Schizoaffective disorder History bilateral foot drop Depression -CT of the head negative for acute findings, - MRI of the brain revealed extensive encephalomalacia left side including the frontal, parietal and temporal regions. No signs of acute CVA. MRA brain showedno focal signs of stenosis but decreased blood flow in the left MCA distribution - EEG - possible epileptiform activity in left hemisphere - Keppra 250 twice a day with 500 mg at night/home dosage -> increased to 1000 mg by tube twice a day by Dr. Ossi -Plavix 75 mg daily started as the patient is allergic to aspirin RESP: Acute respiratory failure History of a sore sleep apnea -Assist control mechanical ventilation 14/500/5/35 - CPAP 10/5 and 35%. -Ventilator bundle -DuoNeb every 6 hours when necessary -Spontaneous breathing trials daily -Broad spectrum antibiotics with Cefepime and Flagyl to cover for aspiration - Barrier to extubation currently appears to be secretions. CV: Right proximal internal carotid artery plaque not hemodynamic significant Recommended CTA neck when appropriate Atherosclerotic vascular disease History of hypertension Dyslipidemia Chronic diastolic heart failure ejection fraction 55% 2012 -Hold home hypertensive medications lisinopril 20 mg twice a day and clonidine 0.1 mg twice a day at this time Inderal 10 mg 3 times a day/on metoprolol 100 mg twice a day at home. Continue pravastatin at 20 mg by mouth daily for dyslipidemia GI: History of GI bleed History of Lorraine-Jaimes tear Liver cirrhosis Hypoalbuminemia Gastro-Esophageal reflux disease Hiatal hernia History of esophagitis Elevated ammonia Continue with Nepro goal 50 cc an hour -IV Protonix, Colace Lactulose 30 cc twice a day. Trending ammonia from 122 currently 60. Continue Xifaxan 550 twice a day RENAL//FEN: Acute kidney failure Chronic kidney insufficiency baseline creatinine about 1.1 Hypernatremia -Monitor renal function closely. Place Rosales catheter. -Free water replacement 250 mL every 6 hours -Renal US revealed medical renal disease right kidney. Normal left kidney. No hydronephrosis. -Urine electrolyte/eosinophils negative ID: Sepsis UTI -Empiric Cefepime and Flagyl day #7. We'll discontinue Flagyl today -Follow up on blood urine and blood cultures no growth to date HEME: Mild thrombocytopenia Leukocytosis -Monitor CBC, CMP, coags ENDO: Hypernatremia - likely medication Low TSH -Electrolyte replacement protocol, sliding scale insulin if needed -Free water replacement as above Free T4 slightly elevated. T3 normal. Pending TSI anti-TPO 2 international units per milliliter. Thyroglobulin antibodies 52 international units per miililiter. Thyroglobulin 17.8 ng/mL. Thyroid ultrasound with 4.6 cm cystic left thyroid cyst. Nuclear medicine thyroid scan indicated. At [facility] only done as outpatient. Will need thyroid biopsy. Told today this is only done as an outpatient? Reassess tomorrow. Continue propranolol 10 mg 3 times a day and Tapazole 5 mg 3 times a day Hydrocortisone 100 mg every 8 hours Difficult diagnosis. Altered mental status/seizures explained to sepsis/ hypernatremia and with previous diagnoses. LFTs within normal limits. Currently treated beta blockers, Tapazole and steroids. Will need outpatient thyroid scan and biopsy of left thyroid mass if we are unable to perform inpatient at this facility. PROPH: -Bilateral lower extremity SCDs. IV Protonix, subcutaneous heparin LINES: -Utilize peripheral IVs, central line if needed Critical Care: The total care time was 35 minutes. Time to perform other separately billable procedures was not included in the critical care time. Hosea Gonzalez MD Jun 23, 2016 10:14
[2016-06-23] MEDS ORDERED: HYOSCYAMINE 0.5 MG/ML AMP IVP ONE (10:30)
[2016-06-23] MEDS: HEPARIN SODIUM - SQ 10,000 UNITS/ML VIAL SQ SCH ×2 (11:37)
--- NOTE | 2016-06-23 13:25 | HHI.PR ---
Subjective Interval History remains intubated and sedated marginal BP + BM no fever no family at bed side Vitals/Results Intake & Output 06/22/16 06/22/16 06/23/16 15:00 23:00 07:00 Intake Total 1158 ml 585 ml 1114 ml Output Total 400 ml 550 ml 500 ml Balance 758 ml 35 ml 614 ml IV Total 673 ml 309 ml 408 ml Tube Feeding 485 ml 276 ml 306 ml Other 400 ml Output Urine Total 400 ml 150 ml 200 ml Stool Total 400 ml 300 ml # Bowel Movements 1 Vital Signs Vital Signs Date Time Temp Pulse Resp B/P Pulse Ox O2 Delivery O2 Flow Rate FiO2 06/23/16 13:08 100 35 06/23/16 10:00 111 06/23/16 09:20 100 35 06/23/16 08:00 35 06/23/16 08:00 102 06/23/16 06:00 109 06/23/16 04:15 100 35 06/23/16 04:00 98.7 110 14 93/57 100 06/23/16 04:00 110 06/23/16 04:00 35 06/23/16 02:00 112 06/23/16 01:16 99 35 06/23/16 00:00 113 06/23/16 00:00 35 06/23/16 00:00 98.6 113 16 105/56 100 06/22/16 22:12 100 35 06/22/16 22:00 102 06/22/16 20:00 102 06/22/16 20:00 35 06/22/16 20:00 98.8 102 14 87/53 100 06/22/16 19:22 100 35 06/22/16 18:00 88 06/22/16 17:56 95 35 06/22/16 16:00 98.6 97 17 94/58 100 06/22/16 16:00 93 06/22/16 16:00 35 06/22/16 14:00 91 CBC/BMP: 06/23/16 0510 06/23/16 0510 Lab Results Laboratory Tests Test 06/23/16 05:10 White Blood Count 10.5 TH/MM3 Red Blood Count 3.67 MIL/MM3 Hemoglobin 9.9 GM/DL Hematocrit 30.4 % Mean Corpuscular Volume 82.8 FL Mean Corpuscular Hemoglobin 27.1 PG Mean Corpuscular Hemoglobin 32.7 % Concent Red Cell Distribution Width 14.2 % Platelet Count 69 TH/MM3 Mean Platelet Volume 11.5 FL Neutrophils (%) (Auto) 60.9 % Lymphocytes (%) (Auto) 24.0 % Monocytes (%) (Auto) 11.0 % Eosinophils (%) (Auto) 3.8 % Basophils (%) (Auto) 0.3 % Neutrophils # (Auto) 6.4 TH/MM3 Lymphocytes # (Auto) 2.5 TH/MM3 Monocytes # (Auto) 1.2 TH/MM3 Eosinophils # (Auto) 0.4 TH/MM3 Basophils # (Auto) 0.0 TH/MM3 CBC Comment DIFF FINAL Differential Comment Sodium Level 147 MEQ/L Potassium Level 3.7 MEQ/L Chloride Level 114 MEQ/L Carbon Dioxide Level 23.1 MEQ/L Anion Gap 10 MEQ/L Blood Urea Nitrogen 35 MG/DL Creatinine 1.77 MG/DL Estimat Glomerular Filtration 35 ML/MIN Rate Random Glucose 118 MG/DL Calcium Level 8.4 MG/DL Phosphorus Level 2.9 MG/DL Magnesium Level 2.6 MG/DL Ammonia 61 MCMOL/L Thyroid Stimulating Hormone 0.043 uIU/ML 3rd Gen Physical Exam General General Appearance: No Acute Distress Appearance Remarks intubated and sedated Eyes Eye Exam: Pupils Equal, Pupils Reactive Neck Neck Exam: Neck Supple Pulmonary Resp Exam: No Distress, Crackles, Diminished Breath Sounds Cardiology CV Exam: Regular Gastrointestinal/Abdomen GI Exam: Soft, Non-Tender, Bowel Sounds Present Integumentary Skin Exam: Clear, Warm, Dry Extremeties Extremities Exam: No Edema Neurologic Neuro Exam: Sedated Assessment/Plan Assessment/Plan Acute metabolic encephalopathy Probable acute stroke Seizure disorder Dementia disorder NOS Schizoaffective disorder Acute respiratory failure History of hypertension Dyslipidemia Chronic diastolic heart failure ejection fraction 55% h/o Liver cirrhosis hyper ammonemia KARTHIK/CKD hypernatremia UTI/sepsis/ BActeremia (1 of 4 + for GPC) low TSH, thyroid cyst History of left MCA stroke with right hemiparesis History of intracranial aneurysm and bleed Appreciate [facility] input/help Vent management and weaning per [facility] CPAP trials EEG with possible epileptiform discharges Neurology following Keppra dose increased No acute CVA, Right prox ICA Plaque, not hemodynamically significant On lactulose and Rifaximin for hyperammonemia, repeat ammonia improving NPO, tube feeds Nepro at 40 cc/hr i/v protonix h & H stable 1/2 NS and free water, sodium stable at 146-147 creatinine 1.77 today broad spectrum antibiotic cefepime blood culture likely contamination urine culture growing strept Viridans. thyroid work up noted with cyst, ? nuclear scan in am labs in am discussed with patient's nurse no family at bed side Marceal Bro MD Jun 23, 2016 13:25
[2016-06-23] MEDS: HYDROCORTISONE SOD SUCCINATE 100 MG VIAL IV PUSH SCH (15:37)
[2016-06-24] VITALS (14 sets, daily range): BP systolic 105–137; BP diastolic 56–92; PULSE 94–118; RESP 14–30; TEMP 98.1–98.8; O2SAT 98–100
[2016-06-24] MEDS: PANTOPRAZOLE SODIUM 40 MG VIAL IV PUSH SCH (00:01)
[2016-06-24] MEDS: metroNIDAZOLE 500 MG INJ 100 ML IV SCH ×3 (00:23→18:31)
[2016-06-24] MEDS: PROPRANOLOL HCL 10 MG TAB PO SCH ×4 (00:23→20:30)
[2016-06-24] MEDS: FREE WATER OG SCH ×4 (06:00→18:00)
[2016-06-24] MEDS: HYDROCORTISONE SOD SUCCINATE 100 MG VIAL IV PUSH SCH ×4 (06:21→20:30)
[2016-06-24] MEDS: CEFEPIME INJ 2,000 MG in SODIUM CHLORIDE 0.9% INJ 100 ML IV SCH (06:21)
[2016-06-24] MEDS: METHIMAZOLE 5 MG TAB PO SCH ×4 (06:21→20:30)
--- NOTE | 2016-06-24 06:29 | RADRPT ---
EXAM DATE/TIME: 06/24/2016 03:59 [place] COMPARISON: CHEST SINGLE AP, June 21, 2016, 4:40. INDICATIONS : Shortness of breath, possible pulmonary disease. MEDICAL HISTORY : None. SURGICAL HISTORY : None. ENCOUNTER: Subsequent ACUITY: 1 week PAIN SCORE: Non-responsive. LOCATION: Bilateral chest FINDINGS: Right central line in superior vena cava. NG enters stomach. Minimal subsegmental airspace disease at the bases. No effusion or pneumothorax. CONCLUSION: 1. Stable exam compared with June 21. Rommel Cavazos MD on June 24, 2016 at 6:27 Board Certified Radiologist. This report was verified electronically.
[2016-06-24 06:51] LABS: AUTOMATED NEUTROPHIL # 9.4 TH/MM3 (1.8-7.7); BASOPHIL % 0.2 % (0.0-2.0); EOSINOPHIL % 0.1 % (0.0-4.0); HEMATOCRIT 31.9 % (35.0-46.0); LYMPH % 11.6 % (9.0-44.0); LYMPHOCYTE # 1.3 TH/MM3 (1.0-4.8); MEAN CORPUSCULAR HEMOGLOBIN 26.8 PG (27.0-34.0); MEAN CORPUSCULAR HGB CONC 32.2 % (32.0-36.0); MONO % 5.7 % (0.0-8.0); NEUT % 82.4 % (16.0-70.0); PLATELET COUNT 86 TH/MM3 (150-450); RED BLOOD COUNT 3.85 MIL/MM3 (4.00-5.30); RED CELL DISTRIBUTION WIDTH 14.8 % (11.6-17.2); WHITE BLOOD COUNT 11.4 TH/MM3 (4.0-11.0)
[2016-06-24 06:57] LABS: HEMO FLAGS AUTO DIFF
[2016-06-24 07:05] LABS: ALKALINE PHOSPHATASE 83 U/L (45-117); ALT (GPT) 23 U/L (10-53); ANION GAP 11 MEQ/L (5-15); AST (GOT) 39 U/L (15-37); BICARBONATE 21.3 MEQ/L (21.0-32.0); BLOOD UREA NITROGEN 33 MG/DL (7-18); CHLORIDE 115 MEQ/L (98-107); GLOMERULAR FILTRATION RATE 32 ML/MIN (>89); MAGNESIUM 2.5 MG/DL (1.5-2.5); POTASSIUM 3.6 MEQ/L (3.5-5.1); SODIUM (NA) 147 MEQ/L (136-145); TOTAL BILIRUBIN ADULT 0.3 MG/DL (0.2-1.0)
[2016-06-24] MEDS: CHLORHEXIDINE 0.12% (ORAL KIT) 15 ML CUP MT SCH ×2 (08:00→19:43)
[2016-06-24 08:30] LABS: OVALOCYTES 1+ (NORMAL); PLATELET ESTIMATE SMEAR LOW (NORMAL); PLATELET MORPHOLOGY ENLARGED (NORMAL); SCAN/DIFF AUTO DIFF CONFIRMED
[2016-06-24] MEDS: RIFAXIMIN 550 MG TAB PO SCH ×2 (11:09→20:30)
[2016-06-24] MEDS: PRAVASTATIN SOD 20 MG TAB PO SCH (11:09)
[2016-06-24] MEDS: levETIRAcetam 500 MG/5 ML UDC TUBE SCH ×2 (11:10→20:30)
[2016-06-24] MEDS: SODIUM CHLORIDE 0.9% FLUSH 5 ML FLUSH FLUSH SCH ×2 (11:10→19:43)
[2016-06-24] MEDS: LACTULOSE SYRUP 20 GM/30 ML CUP PO SCH ×2 (11:10→20:30)
[2016-06-24] MEDS: CLOPIDOGREL 75 MG TAB PO SCH (11:10)
[2016-06-24] MEDS: DOCUSATE SODIUM 100 MG/10 ML UDC PO SCH ×2 (11:10→20:30)
[2016-06-24] MEDS: HEPARIN SODIUM - SQ 10,000 UNITS/ML VIAL SQ SCH ×2 (11:11)
--- NOTE | 2016-06-24 12:25 | HHI.PR ---
Subjective Interval History extubated yesterday oriented opens yes to name BP stable off sedation now appears lethargic failed swallow eval no fever no family at bed side Vitals/Results Intake & Output 06/23/16 06/23/16 06/24/16 15:00 23:00 07:00 Intake Total 1055 ml 383 ml 788 ml Output Total 650 ml 700 ml 700 ml Balance 405 ml -317 ml 88 ml IV Total 568 ml 383 ml 388 ml Tube Feeding 487 ml Other 400 ml Output Urine Total 350 ml 200 ml 300 ml Stool Total 300 ml 500 ml 400 ml Vital Signs Vital Signs Date Time Temp Pulse Resp B/P Pulse Ox O2 Delivery O2 Flow Rate FiO2 06/24/16 11:32 98 Nasal Cannula 4.00 06/24/16 06:00 104 06/24/16 04:00 98.7 107 24 137/61 99 06/24/16 04:00 107 06/24/16 02:00 104 06/24/16 00:00 114 06/24/16 00:00 98.8 118 30 132/61 98 06/23/16 22:00 114 06/23/16 20:00 98.7 113 20 120/71 100 06/23/16 20:00 113 06/23/16 19:50 99 Venturi Mask 6.00 40 06/23/16 18:00 96 06/23/16 16:56 96 Venturi Mask 40 06/23/16 16:56 97 Venturi Mask 40 06/23/16 16:24 99 35 06/23/16 16:00 35 06/23/16 16:00 102 06/23/16 16:00 98.5 102 18 109/57 100 06/23/16 14:00 95 06/23/16 13:08 100 35 CBC/BMP: 06/24/16 0533 06/24/16 0533 Lab Results Laboratory Tests Test 06/23/16 06/24/16 13:20 05:33 Random Cortisol 19.6 MCG/DL White Blood Count 11.4 TH/MM3 Red Blood Count 3.85 MIL/MM3 Hemoglobin 10.3 GM/DL Hematocrit 31.9 % Mean Corpuscular Volume 83.0 FL Mean Corpuscular Hemoglobin 26.8 PG Mean Corpuscular Hemoglobin 32.2 % Concent Red Cell Distribution Width 14.8 % Platelet Count 86 TH/MM3 Mean Platelet Volume 11.0 FL Neutrophils (%) (Auto) 82.4 % Lymphocytes (%) (Auto) 11.6 % Monocytes (%) (Auto) 5.7 % Eosinophils (%) (Auto) 0.1 % Basophils (%) (Auto) 0.2 % Neutrophils # (Auto) 9.4 TH/MM3 Lymphocytes # (Auto) 1.3 TH/MM3 Monocytes # (Auto) 0.6 TH/MM3 Eosinophils # (Auto) 0.0 TH/MM3 Basophils # (Auto) 0.0 TH/MM3 CBC Comment AUTO DIFF Differential Comment AUTO DIFF CONFIRMED Platelet Estimate LOW Platelet Morphology Comment ENLARGED Ovalocytes 1+ Sodium Level 147 MEQ/L Potassium Level 3.6 MEQ/L Chloride Level 115 MEQ/L Carbon Dioxide Level 21.3 MEQ/L Anion Gap 11 MEQ/L Blood Urea Nitrogen 33 MG/DL Creatinine 1.87 MG/DL Estimat Glomerular Filtration 32 ML/MIN Rate Random Glucose 139 MG/DL Calcium Level 8.8 MG/DL Phosphorus Level 1.9 MG/DL Magnesium Level 2.5 MG/DL Total Bilirubin 0.3 MG/DL Aspartate Amino Transf 39 U/L (AST/SGOT) Alanine Aminotransferase 23 U/L (ALT/SGPT) Alkaline Phosphatase 83 U/L Total Protein 7.6 GM/DL Albumin 2.4 GM/DL Physical Exam General General Appearance: No Acute Distress, Comfortable Appearance Remarks NG tube Eyes Eye Exam: Pupils Equal, Pupils Reactive Neck Neck Exam: Neck Supple Pulmonary Resp Exam: No Distress, Rhonchi, Diminished Breath Sounds Cardiology CV Exam: Regular Gastrointestinal/Abdomen GI Exam: Soft, Non-Tender, Bowel Sounds Present Musculoskeletal MS Remarks right sided hemiparesis Integumentary Skin Exam: Clear, Warm, Dry Extremeties Extremities Exam: No Edema Assessment/Plan Assessment/Plan Acute metabolic encephalopathy Probable acute stroke Seizure disorder Dementia disorder NOS Schizoaffective disorder Acute respiratory failure History of hypertension Dyslipidemia Chronic diastolic heart failure ejection fraction 55% h/o Liver cirrhosis hyper ammonemia KARTHIK/CKD hypernatremia UTI/sepsis/ BActeremia (1 of 4 + for GPC) low TSH, thyroid cyst History of left MCA stroke with right hemiparesis History of intracranial aneurysm and bleed Appreciate [facility] input/help extubated 06/23 EEG with possible epileptiform discharges Neurology following Keppra dose increased No acute CVA, Right prox ICA Plaque, not hemodynamically significant failed swallow eval continue tube feeds via Ng tube re assess swallowing in am On lactulose and Rifaximin for hyperammonemia, repeat ammonia improving NPO, tube feeds Nepro at 40 cc/hr i/v protonix h & H stable 1/2 NS and free water, sodium stable at 146-147 creatinine 1.87 , stable broad spectrum antibiotic cefepime blood culture likely contamination urine culture growing strept Viridans. thyroid work up noted with cyst, ? nuclear scan outpatient discussed with patient's nurse no family at bed side Marcela Bro MD Jun 24, 2016 12:25
--- NOTE | 2016-06-24 18:06 | HHI.CCPN ---
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 Patient was found less responsive than usual, left facial droop, not able to follow directions. On arrival evaluated by ER physician Dr. Reeves. CT of the head showed no acute findings but large old left MCA stroke. The findings discussed with Dr. Romano who decided that patient is not a good TPA candidate. Patient was started on Plavix due to severe aspirin allergy. UA showed evidence of UTI and cultures were done and IV antibiotics were started in the ED. Lab work showed a white count of 12, lactic acid 2.1, sodium of 166 and a new acute renal failure with BUN 67 and creatinine 4.5. Patient has chronic renal insufficiency with a baseline creatinine highest at 1.3. Initially patient was admitted to [facility]. While in the ER patient' s mental status worsened and patient was intubated for airway protection I evaluated the patient in the ED. Her eyes are spontaneously open but do not follow commands right upper extremity is flaccid and patient has bilateral foot drop moves left upper extremity freely. Acute encephalopathy seems to be metabolic, secondary to her hyponatremia, renal failure and urosepsis 06/18: Afebrile. Arousable on the ventilator currently receiving peripheral IVs. Rosales placed with adequate urine output 06/19: Afebrile. Lasted 10 minutes on CPAP trials today. No bowel movement. Will initiate tube feeds today. 06/20: Afebrile. Tolerating tube feeding. One bowel movement. Still on ventilator. Failed CPAP. 06/21 - Tmax 99.6. Currently afebrile. Tolerating tube feeds. For bowel moments. More awake on the ventilator today. 06/22: Resting comfortably in bed in no acute distress. Tongue protruding. Intermittent coughing spells with copious thick yellow oral tracheal secretions. Subjective 06/23: Currently afebrile. Parallel held overnight secondary to low blood pressures. Became more tachycardic. Copious oral secretions. Minimal oral tracheal secretions. Positive BM. 06/14: The patient was extubated, no issues overnight continues on Ventimask. The patient is following commands yes and no questions and squeezing my hand. Formal swallow performed patient will remain on NG tube feeds. Objective Vital Signs Date Time Temp Pulse Resp B/P Pulse Ox O2 Delivery O2 Flow Rate FiO2 06/24/16 16:00 98.2 97 18 107/68 100 06/24/16 11:32 Nasal Cannula 4.00 06/23/16 19:50 40 Intake and Output 06/23/16 06/23/16 06/24/16 08:00 16:00 00:00 Intake Total 1114 ml 1055 ml 383 ml Output Total 500 ml 650 ml 700 ml Balance 614 ml 405 ml -317 ml Result Diagram: 06/24/16 0533 06/24/16 0533 Imaging Last Impressions Thyroid Ultrasound 06/22/16 0000 Signed Impressions: Service Date/Time: Wednesday, June 22, 2016 21:59 - CONCLUSION: Complex cystic left thyroid mass measuring 4.6 cm. Everton Archuleta MD Chest X-Ray 06/21/16 0600 Signed Impressions: Service Date/Time: Tuesday, June 21, 2016 04:40 - CONCLUSION: Clear lungs. NG tube as above. Everton Archuleta MD Renal Ultrasound 06/18/16 0343 Signed Impressions: Service Date/Time: Saturday, June 18, 2016 08:15 - CONCLUSION: 1. Increased echogenicity which can be seen with medical renal disease. Right kidney is slightly small in size. 2. Urinary bladder is decompressed by Rosales catheter. Gideon De La Fuente MD Brain MRI 06/18/16 0102 Signed Impressions: Service Date/Time: Saturday, June 18, 2016 02:28 - CONCLUSION: 1. Widespread encephalomalacia throughout the left cerebral hemisphere. An area of acute infarction is not clearly seen. There is very prominent expansion of the left lateral ventricle. 2. Suspected underlying small vessel ischemic change in the white matter on the right hemisphere. 3. Areas of signal abnormality on the SWI images related to prior areas of hemorrhage. No acute hemorrhage is seen. Kye Montiel MD Head Magnetic Resonance Angiography 06/18/16 0000 Signed Impressions: Service Date/Time: Saturday, June 18, 2016 02:28 - CONCLUSION: No acute areas of occlusion. There is asymmetric and diminished flow in the more distal left middle cerebral artery territory. Kye Montiel MD Carotid Artery Ultrasound 06/18/16 0000 Signed Impressions: Service Date/Time: Saturday, June 18, 2016 07:56 - CONCLUSION: 1. Severe plaque in the right proximal right internal carotid artery but no hemodynamically significant stenosis identified. May consider a carotid CTA to ensure no significant stenosis. 2. No significant stenosis in the left carotid artery. Gideon De La Fuente MD Head CT 06/17/16 0000 Signed Impressions: Service Date/Time: Friday, June 17, 2016 20:15 - CONCLUSION: No acute intracranial abnormality. Old left middle cerebral artery distribution infarct. Kye Young MD Objective Remarks GENERAL: 70-year-old well-nourished, well-developed elderly -[place] female patient currently resting in bed SKIN: Warm and dry. No rash HEAD: Normocephalic. EYES: Pupils are equal, round, reactive to light bilaterally around 3 mm. ENT: Orotracheally intubated. Tongue is somewhat protruding. NECK: Supple, trachea midline. Mobile fluctuant mass involving left thyroid CARDIOVASCULAR: Regular rate and rhythm S1, S2. No S4. Without murmurs, gallops, or rubs. RESPIRATORY: Breath sounds equal bilaterally. No accessory muscle use. GASTROINTESTINAL: Abdomen soft, non-tender, nondistended. Hypoactive bowel sounds MUSCULOSKELETAL: No new skin peripheral edema. Bilateral foot drop NEUROLOGICAL: Eyes open spontaneously. Currently following commands. Bilateral foot drop but withdraws to pain A/P Assessment and Plan NEURO/PSYCH: Acute metabolic encephalopathy Probable acute stroke History of left MCA stroke with right hemiparesis History of intracranial aneurysm and bleed Seizure disorder Dementia disorder NOS Schizoaffective disorder History bilateral foot drop Depression -CT of the head negative for acute findings, - MRI of the brain revealed extensive encephalomalacia left side including the frontal, parietal and temporal regions. No signs of acute CVA. MRA brain showedno focal signs of stenosis but decreased blood flow in the left MCA distribution - EEG - possible epileptiform activity in left hemisphere - Keppra 250 twice a day with 500 mg at night/home dosage -> increased to 1000 mg by tube twice a day by Dr. Griffith -Plavix 75 mg daily started as the patient is allergic to aspirin RESP: Acute respiratory failure History of a sore sleep apnea -Assist control mechanical ventilation 14//35 - CPAP 10/5 and 35%. -Ventilator bundle -DuoNeb every 6 hours when necessary -Spontaneous breathing trials daily -Broad spectrum antibiotics with Cefepime and Flagyl to cover for aspiration -Patient extubated on Ventimask, secretions diminished CV: Right proximal internal carotid artery plaque not hemodynamic significant Recommended CTA neck when appropriate Atherosclerotic vascular disease History of hypertension Dyslipidemia Chronic diastolic heart failure ejection fraction 55% 2012 -Hold home hypertensive medications lisinopril 20 mg twice a day and clonidine 0.1 mg twice a day at this time Inderal 10 mg 3 times a day/on metoprolol 100 mg twice a day at home. Continue pravastatin at 20 mg by mouth daily for dyslipidemia GI: History of GI bleed History of Lorraine-Jaimes tear Liver cirrhosis Hypoalbuminemia Gastro-Esophageal reflux disease Hiatal hernia History of esophagitis Elevated ammonia Continue with Nepro goal 50 cc an hour -IV Protonix, Colace Lactulose 30 cc twice a day. Trending ammonia from 122 currently 60. Continue Xifaxan 550 twice a day RENAL//FEN: Acute kidney failure Chronic kidney insufficiency baseline creatinine about 1.1 Hypernatremia -Monitor renal function closely. Place Rosales catheter. -Free water replacement 250 mL every 6 hours -Renal US revealed medical renal disease right kidney. Normal left kidney. No hydronephrosis. -Urine electrolyte/eosinophils negative ID: Sepsis UTI -Empiric Cefepime day 8. Flagyl discontinued 06/24 -Follow up on blood urine and blood cultures no growth to date HEME: Mild thrombocytopenia Leukocytosis -Monitor CBC, CMP, coags ENDO: Hypernatremia - likely medication Low TSH -Electrolyte replacement protocol, sliding scale insulin if needed -Free water replacement as above Free T4 slightly elevated. T3 normal. Pending TSI anti-TPO 2 international units per milliliter. Thyroglobulin antibodies 52 international units per miililiter. Thyroglobulin 17.8 ng/mL. Thyroid ultrasound with 4.6 cm cystic left thyroid cyst. Nuclear medicine thyroid scan indicated. At [place] only done as outpatient. Will need thyroid biopsy. Told today this is only done as an outpatient? Reassess tomorrow. Continue propranolol 10 mg 3 times a day and Tapazole 5 mg 3 times a day Hydrocortisone 100 mg every 8 hours Difficult diagnosis. Altered mental status/seizures explained to sepsis/ hypernatremia and with previous diagnoses. LFTs within normal limits. Currently treated beta blockers, Tapazole and steroids. Will need outpatient thyroid scan and biopsy of left thyroid mass if we are unable to perform inpatient at this facility. PROPH: -Bilateral lower extremity SCDs. IV Protonix, subcutaneous heparin LINES: -Utilize peripheral IVs, central line if needed Dispo: Planned transferred to hospitalist in am Critical Care: Level 2 Physician Astrid Dunn MD Jun 24, 2016 18:06
[2016-06-25] VITALS (26 sets, daily range): BP systolic 127–153; BP diastolic 71–87; PULSE 92–107; RESP 18–22; TEMP 98.2–98.6; O2SAT 95–99
[2016-06-25] MEDS: PANTOPRAZOLE SODIUM 40 MG VIAL IV PUSH SCH (00:19)
[2016-06-25] MEDS: HEPARIN SODIUM - SQ 10,000 UNITS/ML VIAL SQ SCH ×2 (00:19→13:37)
[2016-06-25] MEDS: metroNIDAZOLE 500 MG INJ 100 ML IV SCH ×3 (01:45→17:55)
[2016-06-25] MEDS: CEFEPIME INJ 2,000 MG in SODIUM CHLORIDE 0.9% INJ 100 ML IV SCH (05:39)
[2016-06-25] MEDS: PROPRANOLOL HCL 10 MG TAB PO SCH ×3 (05:40→22:00)
[2016-06-25] MEDS: METHIMAZOLE 5 MG TAB PO SCH ×3 (05:40→22:00)
[2016-06-25] MEDS: SODIUM CHLORIDE 0.9% FLUSH 5 ML FLUSH FLUSH PRN (05:40)
[2016-06-25] MEDS: FREE WATER OG SCH ×5 (05:40→22:42)
[2016-06-25] MEDS: HYDROCORTISONE SOD SUCCINATE 100 MG VIAL IV PUSH SCH ×3 (05:40→22:40)
[2016-06-25] MEDS: CHLORHEXIDINE 0.12% (ORAL KIT) 15 ML CUP MT SCH ×2 (08:00→20:00)
[2016-06-25] MEDS: LACTULOSE SYRUP 20 GM/30 ML CUP PO SCH ×2 (10:31→21:00)
[2016-06-25] MEDS: PRAVASTATIN SOD 20 MG TAB PO SCH (10:31)
[2016-06-25] MEDS: levETIRAcetam 500 MG/5 ML UDC TUBE SCH ×2 (10:31→21:00)
[2016-06-25] MEDS: DOCUSATE SODIUM 100 MG/10 ML UDC PO SCH ×2 (10:31→21:00)
[2016-06-25] MEDS: CLOPIDOGREL 75 MG TAB PO SCH (10:31)
[2016-06-25] MEDS: RIFAXIMIN 550 MG TAB PO SCH ×2 (10:31→21:00)
[2016-06-25] MEDS: SODIUM CHLORIDE 0.9% FLUSH 5 ML FLUSH FLUSH SCH ×2 (10:32→22:41)
--- NOTE | 2016-06-25 12:12 | HHI.PR ---
Subjective Interval History transferred out of ICU more alert today able to follow some commands worked with PT, Max assist unable to clear secretions no family at bed side no fever Vitals/Results Intake & Output 06/24/16 06/24/16 06/25/16 15:00 23:00 07:00 Intake Total 827 ml 498 ml 1136 ml Output Total 625 ml 450.0 ml 900 ml Balance 202 ml 48.0 ml 236 ml IV Total 487 ml 310 ml 222 ml Tube Feeding 40 ml 188 ml 514 ml Tube Irrigant 100 ml Other 200 ml 400 ml Output Urine Total 425 ml 350 ml 800 ml Stool Total 200 ml 100 ml 100 ml Tube Feeding Residual Discard 0 ml Vital Signs Vital Signs Date Time Temp Pulse Resp B/P Pulse Ox O2 Delivery O2 Flow Rate FiO2 06/25/16 10:59 98.4 103 18 140/87 98 06/25/16 09:00 99 06/25/16 08:00 100 06/25/16 08:00 98.2 94 20 127/71 97 06/25/16 07:00 96 06/25/16 06:00 92 06/25/16 05:00 94 06/25/16 04:00 98 06/25/16 04:00 98.2 98 18 138/77 99 06/25/16 03:00 96 06/25/16 02:00 92 06/25/16 01:00 98 06/25/16 00:00 98 06/25/16 00:00 98.6 98 22 134/84 99 06/24/16 23:00 96 06/24/16 22:45 98.1 96 20 136/92 98 06/24/16 20:00 98.2 97 22 126/63 98 06/24/16 20:00 97 06/24/16 18:00 94 06/24/16 16:00 98.2 97 18 107/68 100 06/24/16 16:00 97 06/24/16 14:00 101 CBC/BMP: 06/24/16 0533 06/24/16 0533 Physical Exam General General Appearance: No Acute Distress, Comfortable Appearance Remarks NG tube Eyes Eye Exam: Pupils Equal, Pupils Reactive Neck Neck Exam: Neck Supple Pulmonary Resp Exam: No Distress, Rhonchi, Diminished Breath Sounds Cardiology CV Exam: Regular Gastrointestinal/Abdomen GI Exam: Soft, Non-Tender, Bowel Sounds Present Musculoskeletal MS Remarks right sided hemiparesis Integumentary Skin Exam: Clear, Warm, Dry Extremeties Extremities Exam: No Edema Assessment/Plan Assessment/Plan Acute metabolic encephalopathy Probable acute stroke Seizure disorder Dementia disorder NOS Schizoaffective disorder Acute respiratory failure History of hypertension Dyslipidemia Chronic diastolic heart failure ejection fraction 55% h/o Liver cirrhosis hyper ammonemia KARTHIK/CKD hypernatremia UTI/sepsis/ BActeremia (1 of 4 + for GPC) low TSH, thyroid cyst History of left MCA stroke with right hemiparesis History of intracranial aneurysm and bleed extubated 06/23 transferred to [facility] EEG with possible epileptiform discharges Neurology following Keppra dose increased No acute CVA, Right prox ICA Plaque, not hemodynamically significant failed swallow eval Speech working, recommending PEG continue tube feeds via Ng tube tried reaching family on all 4 numbers, listed in contacts, to discuss PEG Placement. Unable to reach family consult GI consult case management /certified social workers in health care to try to reach family, so that consent for PEG can be obtained. On lactulose and Rifaximin for hyperammonemia, repeat ammonia improving NPO, tube feeds Nepro at 40 cc/hr i/v protonix h & H stable 1/2 NS and free water, sodium stable at 146-147 creatinine 1.87 , stable broad spectrum antibiotic cefepime blood culture likely contamination urine culture growing strept Viridans. repeat UA ordered d/c Flagyl, continue Cefepime labs in am thyroid work up noted with cyst, ? nuclear scan outpatient discussed with patient's nurse no family at bed side Marcela Bro MD Jun 25, 2016 12:12
[2016-06-25 13:49] LABS: BLOOD, URINE LARGE (NEG); COMMENT (UR) CATH-CULTURE IND; CULTURE IF INDICATED CATH CULTURE IND; GLUCOSE,URINE NEG (NEG); KETONE, URINE NEG (NEG); MUCUS URINE FEW /lpf (OCC); NITRITE,URINE NEG (NEG); SQUAMOUS EPITHELIAL CELL URINE <1 /hpf (0-5); URINE COLOR YELLOW (YELLW/STRAW)
--- NOTE | 2016-06-25 13:50 | PD.CONS ---
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 Patient was started on Plavix, patient is also being treated for sepsis, and UTI. GI have been consulted for PEG tube placement. She failed swallow eval and ST recommended PEG tube. Dr. Bro has been trying to get in touch with family member without success. Patient had NGT but she pulled it out. Patient non verbal, not able to provide any HPI, most of the HPI obtained from nurse and medical chart. 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, schizoaffective disorder, history of intracranial aneurysmal bleed, hypertension, seizure disorder, liver cirrhosis, dementia, Past Surgical History Not able to obtain (Monserrat Browne) Coded Allergies: Aspirin (Verified Allergy, Severe, 06/17/16) *MDRO Multi-Drug Resistant Organism (Verified Allergy, Unknown, 06/17/16) MRSA Medications Current Medications Medications (Trade) Dose Ordered Sig/Sharmila Route Start Time Stop Time Status Last Admin (NS Flush) 2 ml UNSCH PRN FLUSH 06/17/16 23:30 06/25/16 05:40 (NS Flush) 2 ml BID FLUSH 06/18/16 09:00 06/25/16 10:32 (Tylenol) 650 mg Q4H PRN PO 06/17/16 23:30 (Zofran Inj) 4 mg Q6H PRN IVP 06/17/16 23:30 (Dulcolax Supp) 10 mg DAILY PRN [place] 06/17/16 23:30 (Senokot) 17.2 mg Q12H PRN PO 06/17/16 23:30 (Heparin Inj) 5,000 units Q12H SQ 06/17/16 23:30 06/25/16 00:19 (Narcan Inj) 0.4 mg UNSCH PRN IV 06/17/16 23:30 (Plavix) 75 mg DAILY PO 06/18/16 09:00 06/25/16 10:31 (Pravachol) 20 mg DAILY PO 06/18/16 09:00 06/25/16 10:31 Chlorhexidine Gluconate 15 ml 15 ml BID@08,20 MT 06/18/16 08:00 06/24/16 08:00 Propofol 100 ml @ 0 mls/hr TITRATE IV 06/18/16 01:15 06/21/16 00:51 (Flagyl 500 Mg Inj) 100 ml @ 100 mls/hr Q8H IV 06/18/16 02:00 06/25/16 10:32 (Protonix Inj) 40 mg Q24H IV PUSH 06/18/16 01:15 06/25/16 00:19 (Colace Liq) 100 mg Q12HR PO 06/18/16 09:00 06/25/16 10:31 Miscellaneous Information Patient in critical care unit? Ass... Q361D XX 06/18/16 06:30 06/18/16 06:30 Lactulose 30 ml 30 ml BID PO 06/18/16 09:15 06/25/16 10:31 (Maxipime Inj/NS Inj) 100 ml @ 250 mls/hr Q24H IV 06/19/16 06:00 06/25/16 05:39 (Keppra Liq) 1,000 mg Q12HR TUBE 06/18/16 21:00 06/25/16 10:31 (Xifaxan) 550 mg BID PO 06/19/16 12:45 06/25/16 10:31 Propranolol HCl 10 mg 10 mg Q8HR PO 06/20/16 22:00 06/25/16 05:40 Midazolam HCl 100 ml @ 0 mls/hr TITRATE IV 06/21/16 22:00 06/21/16 22:42 (fentaNYL DRIP) 250 ml @ 0 mls/hr TITRATE IV 06/21/16 22:00 06/21/16 22:42 (Tapazole) 5 mg Q8HR PO 06/22/16 22:00 06/25/16 05:40 (Free Water) 200 ml Q6HR OG 06/23/16 12:00 06/25/16 05:40 (SoluCORTEF INJ) 100 mg Q8HR IV PUSH 06/23/16 14:00 06/25/16 05:40 Family History Non contributory Social History Not able to obtain (Monserrat Browne) Review of Systems ROS Not able to obtain, she does have dysphagia, patient non verbal (Monserrat Browne) GI Exam Vitals I&O Vital Signs Date Time Temp Pulse Resp B/P Pulse Ox O2 Delivery O2 Flow Rate FiO2 06/25/16 13:16 95 21 06/25/16 12:00 98.4 103 20 140/87 98 06/25/16 10:59 98.4 103 18 140/87 98 06/25/16 09:00 99 06/25/16 08:00 100 06/25/16 08:00 98.2 94 20 127/71 97 06/25/16 07:00 96 06/25/16 06:00 92 06/25/16 05:00 94 06/25/16 04:00 98 06/25/16 04:00 98.2 98 18 138/77 99 06/25/16 03:00 96 06/25/16 02:00 92 06/25/16 01:00 98 06/25/16 00:00 98 06/25/16 00:00 98.6 98 22 134/84 99 06/24/16 23:00 96 06/24/16 22:45 98.1 96 20 136/92 98 06/24/16 20:00 98.2 97 22 126/63 98 06/24/16 20:00 97 06/24/16 18:00 94 06/24/16 16:00 98.2 97 18 107/68 100 06/24/16 16:00 97 06/24/16 14:00 101 I/O 06/24/16 06/24/16 06/24/16 06/25/16 06/25/16 06/25/16 07:00 15:00 23:00 07:00 15:00 23:00 Intake Total 788 ml 827 ml 498 ml 1136 ml Output Total 700 ml 625 ml 450.0 ml 900 ml Balance 88 ml 202 ml 48.0 ml 236 ml IV Total 388 ml 487 ml 310 ml 222 ml Tube Feeding 40 ml 188 ml 514 ml Tube Irrigant 100 ml Other 400 ml 200 ml 400 ml Output Urine Total 300 ml 425 ml 350 ml 800 ml Stool Total 400 ml 200 ml 100 ml 100 ml Tube Feeding Residual Discard 0 ml Imaging Last Impressions Chest X-Ray 06/24/16 0600 Signed Impressions: Service Date/Time: Friday, June 24, 2016 03:59 - CONCLUSION: 1. Stable exam compared with June 21. Rommel Cavazos MD Thyroid Ultrasound 06/22/16 0000 Signed Impressions: Service Date/Time: Wednesday, June 22, 2016 21:59 - CONCLUSION: Complex cystic left thyroid mass measuring 4.6 cm. Everton Archuleta MD Renal Ultrasound 06/18/16 0343 Signed Impressions: Service Date/Time: Saturday, June 18, 2016 08:15 - CONCLUSION: 1. Increased echogenicity which can be seen with medical renal disease. Right kidney is slightly small in size. 2. Urinary bladder is decompressed by Rosales catheter. Gideon De La Fuente MD Brain MRI 06/18/16 0102 Signed Impressions: Service Date/Time: Saturday, June 18, 2016 02:28 - CONCLUSION: 1. Widespread encephalomalacia throughout the left cerebral hemisphere. An area of acute infarction is not clearly seen. There is very prominent expansion of the left lateral ventricle. 2. Suspected underlying small vessel ischemic change in the white matter on the right hemisphere. 3. Areas of signal abnormality on the SWI images related to prior areas of hemorrhage. No acute hemorrhage is seen. Kye Montiel MD Head Magnetic Resonance Angiography 06/18/16 0000 Signed Impressions: Service Date/Time: Saturday, June 18, 2016 02:28 - CONCLUSION: No acute areas of occlusion. There is asymmetric and diminished flow in the more distal left middle cerebral artery territory. Kye Montiel MD Carotid Artery Ultrasound 06/18/16 0000 Signed Impressions: Service Date/Time: Saturday, June 18, 2016 07:56 - CONCLUSION: 1. Severe plaque in the right proximal right internal carotid artery but no hemodynamically significant stenosis identified. May consider a carotid CTA to ensure no significant stenosis. 2. No significant stenosis in the left carotid artery. Gideon De La Fuente MD Head CT 06/17/16 0000 Signed Impressions: Service Date/Time: Friday, June 17, 2016 20:15 - CONCLUSION: No acute intracranial abnormality. Old left middle cerebral artery distribution infarct. Kye Young MD Laboratory Date/Time Procedure Status Source Growth 06/21/16 06:16 Aerobic Blood Culture - Preliminary Resulted Blood Peripheral NO GROWTH IN 4 DAYS 06/21/16 06:16 Anaerobic Blood Culture - Preliminary Resulted Blood Peripheral NO GROWTH IN 4 DAYS 06/20/16 20:10 Aerobic Blood Culture - Final Complete Blood Peripheral NO GROWTH IN 5 DAYS 06/20/16 20:10 Anaerobic Blood Culture - Final Complete Blood Peripheral NO GROWTH IN 5 DAYS Physical Examination HEENT:normocephalic; atraumatic; no jaundice. NECK: Neck is supple, no JVD, no lymphadenopathy. CHEST: diminished breath sounds CARDIAC: Regular rate and rhythm ABDOMEN: Soft, nondistended, nontender; bowel sounds are present in all four quadrants. EXTREMITIES: No clubbing, cyanosis, or edema. SKIN: Normal; no rash; no jaundice. 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 Patient was started on Plavix, patient is also being treated for sepsis, and UTI. GI have been consulted for PEG tube placement. She failed swallow eval and ST recommended PEG tube. Dr. Bro has been trying to get in touch with family member without success. Patient had NGT but she pulled it out. Patient non verbal, not able to provide any HPI, most of the HPI obtained from nurse and medical chart. Plan: - EGD/PEG once we have consents, clearance from neurology and Plavix on hold for few days. - Consider reinserting NGT till PEG tube is obtained - ST following - Will f/u - Supportive care - Patient was seen and examined by Dr. Gann and myself and this note is written on his behalf. (Monserrat Browne) Physician Comments Patient seen and examined Continue with current supportive care Monitor labs Plan for EGD with PEG placement tomorrow details were discussed with patient's daughter (James Madrid MD) Monserrat Browne Jun 25, 2016 13:50 James Madrid MD Jun 25, 2016 20:04
[2016-06-25 13:51] LABS: BACTERIA, URINE OCC /hpf
[2016-06-25] MEDS ORDERED: ceFAZolin 1,000 MG/NS 100 ML IV SCH ×2 (19:15)
[2016-06-26] VITALS (20 sets, daily range): BP systolic 132–165; BP diastolic 43–87; PULSE 65–116; RESP 18–20; TEMP 97.8–98.9; O2SAT 96–98
[2016-06-26] MEDS: metroNIDAZOLE 500 MG INJ 100 ML IV SCH ×3 (02:07→18:00)
[2016-06-26] MEDS: PANTOPRAZOLE SODIUM 40 MG VIAL IV PUSH SCH (02:07)
[2016-06-26] MEDS: CEFEPIME INJ 2,000 MG in SODIUM CHLORIDE 0.9% INJ 100 ML IV SCH (05:56)
[2016-06-26] MEDS: HYDROCORTISONE SOD SUCCINATE 100 MG VIAL IV PUSH SCH ×3 (05:57→23:16)
[2016-06-26 07:16] LABS: AUTOMATED NEUTROPHIL # 8.5 TH/MM3 (1.8-7.7); BASOPHIL % 0.1 % (0.0-2.0); HEMATOCRIT 27.8 % (35.0-46.0); HEMO FLAGS DIFF FINAL; LYMPH % 15.5 % (9.0-44.0); LYMPHOCYTE # 1.7 TH/MM3 (1.0-4.8); MEAN CELL VOLUME 82.4 FL (80.0-100.0); MEAN CORPUSCULAR HGB CONC 32.7 % (32.0-36.0); MONO % 6.4 % (0.0-8.0); PLATELET COUNT 115 TH/MM3 (150-450); RED BLOOD COUNT 3.37 MIL/MM3 (4.00-5.30); RED CELL DISTRIBUTION WIDTH 14.6 % (11.6-17.2); WHITE BLOOD COUNT 10.8 TH/MM3 (4.0-11.0)
[2016-06-26 07:32] LABS: BICARBONATE 23.2 MEQ/L (21.0-32.0); MAGNESIUM 2.3 MG/DL (1.5-2.5)
[2016-06-26 07:47] LABS: POTASSIUM 2.9 MEQ/L (3.5-5.1)
[2016-06-26] MEDS: CLOPIDOGREL 75 MG TAB PO SCH (09:00)
[2016-06-26] MEDS: RIFAXIMIN 550 MG TAB PO SCH ×2 (09:00→23:16)
[2016-06-26] MEDS: DOCUSATE SODIUM 100 MG/10 ML UDC PO SCH ×2 (09:00→23:20)
[2016-06-26] MEDS: LACTULOSE SYRUP 20 GM/30 ML CUP PO SCH ×2 (09:00→23:20)
[2016-06-26] MEDS: levETIRAcetam 500 MG/5 ML UDC TUBE SCH ×2 (09:00→23:19)
[2016-06-26] MEDS: SODIUM CHLORIDE 0.9% FLUSH 5 ML FLUSH FLUSH SCH (09:00)
[2016-06-26] MEDS: PRAVASTATIN SOD 20 MG TAB PO SCH (09:00)
[2016-06-26] MEDS: CHLORHEXIDINE 0.12% (ORAL KIT) 15 ML CUP MT SCH ×2 (09:00→20:00)
[2016-06-26] MEDS ORDERED: POTASSIUM CL 40 MEQ/30 ML LIQ UDC NG ONE (09:30)
[2016-06-26] MEDS: POTASSIUM CHLOR 20 MEQ PREMIX 100 ML IV SCH ×2 (09:45→11:59)
[2016-06-26] MEDS: FREE WATER OG SCH ×2 (12:00→18:00)
--- NOTE | 2016-06-26 12:48 | HHI.PR ---
Subjective Interval History appears comfortable sleepy but arousable following simple commands pulled out NG yesterday failed multiple attempts by nursing staff to replace NG tube no fever no family at bed side Vitals/Results Intake & Output 06/25/16 06/25/16 06/26/16 15:00 23:00 07:00 Intake Total 0 ml 350 ml Output Total 1025 ml 800 ml Balance -1025 ml -450 ml Intake Oral 0 ml 0 ml IV Total 350 ml Output Urine Total 500 ml 650 ml Stool Total 525 ml 150 ml Vital Signs Vital Signs Date Time Temp Pulse Resp B/P Pulse Ox O2 Delivery O2 Flow Rate FiO2 06/26/16 06:00 95 06/26/16 05:00 98 06/26/16 04:00 97.8 99 20 144/84 98 06/26/16 04:00 93 06/26/16 03:00 92 06/26/16 02:00 101 06/26/16 01:00 98 06/26/16 00:00 98.5 104 20 141/82 97 06/26/16 00:00 104 06/25/16 23:00 102 06/25/16 22:00 102 06/25/16 21:00 102 06/25/16 20:00 103 06/25/16 20:00 98.4 103 20 153/87 98 06/25/16 19:00 102 06/25/16 18:00 101 06/25/16 17:00 96 06/25/16 16:00 98.6 107 20 144/85 97 06/25/16 16:00 99 06/25/16 15:00 96 06/25/16 14:00 103 06/25/16 13:16 95 21 06/25/16 13:00 96 CBC/BMP: 06/26/16 0604 06/26/16 0604 Lab Results Laboratory Tests Test 06/25/16 06/26/16 13:11 06:04 Urine Color YELLOW Urine Turbidity CLEAR Urine pH 6.0 Urine Specific [place] 1.016 Urine Protein 30 mg/dL Urine Glucose (UA) NEG mg/dL Urine Ketones NEG mg/dL Urine Occult Blood LARGE Urine Nitrite NEG Urine Bilirubin NEG Urine Urobilinogen LESS THAN 2.0 MG/DL Urine Leukocyte Esterase SMALL Urine RBC /hpf Urine WBC 2 /hpf Urine Squamous Epithelial <1 /hpf Cells Urine Bacteria OCC /hpf Urine Mucus FEW /lpf Microscopic Urinalysis Comment CATH-CULTURE IND Nasal Screen MRSA (PCR) NEGATIVE White Blood Count 10.8 TH/MM3 Red Blood Count 3.37 MIL/MM3 Hemoglobin 9.1 GM/DL Hematocrit 27.8 % Mean Corpuscular Volume 82.4 FL Mean Corpuscular Hemoglobin 27.0 PG Mean Corpuscular Hemoglobin 32.7 % Concent Red Cell Distribution Width 14.6 % Platelet Count 115 TH/MM3 Mean Platelet Volume 10.2 FL Neutrophils (%) (Auto) 78.0 % Lymphocytes (%) (Auto) 15.5 % Monocytes (%) (Auto) 6.4 % Eosinophils (%) (Auto) 0.0 % Basophils (%) (Auto) 0.1 % Neutrophils # (Auto) 8.5 TH/MM3 Lymphocytes # (Auto) 1.7 TH/MM3 Monocytes # (Auto) 0.7 TH/MM3 Eosinophils # (Auto) 0.0 TH/MM3 Basophils # (Auto) 0.0 TH/MM3 CBC Comment DIFF FINAL Differential Comment Sodium Level 155 MEQ/L Potassium Level 2.9 MEQ/L Chloride Level 123 MEQ/L Carbon Dioxide Level 23.2 MEQ/L Anion Gap 9 MEQ/L Blood Urea Nitrogen 34 MG/DL Creatinine 1.45 MG/DL Estimat Glomerular Filtration 43 ML/MIN Rate Random Glucose 122 MG/DL Calcium Level 8.8 MG/DL Phosphorus Level 2.0 MG/DL Magnesium Level 2.3 MG/DL Microbiology Microbiology 06/25/16 Urine Culture, Received Pending Physical Exam General General Appearance: No Acute Distress, Comfortable Appearance Remarks NG tube Eyes Eye Exam: Pupils Equal, Pupils Reactive Neck Neck Exam: Neck Supple Pulmonary Resp Exam: No Distress, Rhonchi, Diminished Breath Sounds Cardiology CV Exam: Regular Gastrointestinal/Abdomen GI Exam: Soft, Non-Tender, Bowel Sounds Present Musculoskeletal MS Remarks right sided hemiparesis Integumentary Skin Exam: Clear, Warm, Dry Extremeties Extremities Exam: No Edema Assessment/Plan Assessment/Plan Acute metabolic encephalopathy Probable acute stroke Seizure disorder Dementia disorder NOS Schizoaffective disorder Acute respiratory failure History of hypertension Dyslipidemia Chronic diastolic heart failure ejection fraction 55% h/o Liver cirrhosis hyper ammonemia KARTHIK/CKD hypernatremia UTI/sepsis/ BActeremia (1 of 4 + for GPC) low TSH, thyroid cyst History of left MCA stroke with right hemiparesis History of intracranial aneurysm and bleed extubated 06/23 EEG with possible epileptiform discharges Neurology following Keppra dose increased No acute CVA, Right prox ICA Plaque, not hemodynamically significant failed swallow eval Speech working, recommending PEG Tube feeds on hold sec to no NG tube consulted IR for NG replacement unable to reach family to get consent for PEG placement oncology social work consult placed to try to reach family, so that consent for PEG can be obtained. consult GI On lactulose and Rifaximin for hyperammonemia, repeat ammonia improving NPO i/v protonix h & H stable D51/2 NS and free water, sodium stable creatinine 1.47 , stable broad spectrum antibiotic cefepime blood culture likely contamination urine culture growing strept Viridans. repeat UA ordered d/c Flagyl, continue Cefepime labs in am thyroid work up noted with cyst, ? nuclear scan outpatient discussed with patient's nurse no family at bed side Marcela Bro MD Jun 26, 2016 12:48
[2016-06-26] MEDS: METHIMAZOLE 5 MG TAB PO SCH ×2 (14:00→23:15)
[2016-06-26] MEDS: PROPRANOLOL HCL 10 MG TAB PO SCH ×2 (14:00→23:15)
[2016-06-27] VITALS (23 sets, daily range): BP systolic 105–174; BP diastolic 57–97; PULSE 64–124; RESP 18–20; TEMP 98–98.5; O2SAT 98–100
[2016-06-27] MEDS: metroNIDAZOLE 500 MG INJ 100 ML IV SCH ×3 (02:39→18:00)
[2016-06-27] MEDS: PANTOPRAZOLE SODIUM 40 MG VIAL IV PUSH SCH (02:39)
[2016-06-27] MEDS: SODIUM CHLORIDE 0.9% FLUSH 5 ML FLUSH FLUSH SCH ×3 (02:40→21:57)
[2016-06-27] MEDS: FREE WATER OG SCH ×5 (06:00→22:00)
[2016-06-27] MEDS: HYDROCORTISONE SOD SUCCINATE 100 MG VIAL IV PUSH SCH ×3 (06:05→21:53)
[2016-06-27] MEDS: PROPRANOLOL HCL 10 MG TAB PO SCH ×3 (06:06→21:55)
[2016-06-27] MEDS: CEFEPIME INJ 2,000 MG in SODIUM CHLORIDE 0.9% INJ 100 ML IV SCH (06:06)
[2016-06-27] MEDS: METHIMAZOLE 5 MG TAB PO SCH ×4 (06:06→22:00)
[2016-06-27 06:25] LABS: AUTOMATED NEUTROPHIL # 7.5 TH/MM3 (1.8-7.7); BASOPHIL % 0.1 % (0.0-2.0); EOSINOPHIL % 0.1 % (0.0-4.0); HEMATOCRIT 30.6 % (35.0-46.0); HEMO FLAGS DIFF FINAL; LYMPHOCYTE # 1.9 TH/MM3 (1.0-4.8); MEAN CELL VOLUME 81.8 FL (80.0-100.0); MEAN CORPUSCULAR HEMOGLOBIN 27.3 PG (27.0-34.0); MEAN CORPUSCULAR HGB CONC 33.4 % (32.0-36.0); MONO % 9.2 % (0.0-8.0); NEUT % 72.6 % (16.0-70.0); PLATELET COUNT 139 TH/MM3 (150-450); RED BLOOD COUNT 3.74 MIL/MM3 (4.00-5.30); RED CELL DISTRIBUTION WIDTH 14.7 % (11.6-17.2); WHITE BLOOD COUNT 10.4 TH/MM3 (4.0-11.0)
[2016-06-27 07:01] LABS: BICARBONATE 22.6 MEQ/L (21.0-32.0); POTASSIUM 3.1 MEQ/L (3.5-5.1)
[2016-06-27] MEDS: CHLORHEXIDINE 0.12% (ORAL KIT) 15 ML CUP MT SCH ×2 (08:00→20:00)
[2016-06-27] MEDS ORDERED: DEXTROSE 5% IN WATE 1000ML INJ 1,000 ML IV SCH (09:30)
[2016-06-27] MEDS: DEXTROSE 5% IN WATE 1000ML INJ 1,000 ML IV SCH ×2 (09:45→21:59)
[2016-06-27] MEDS: LACTULOSE SYRUP 20 GM/30 ML CUP PO SCH ×3 (10:11→21:52)
[2016-06-27] MEDS: PRAVASTATIN SOD 20 MG TAB PO SCH (10:11)
[2016-06-27] MEDS: CLOPIDOGREL 75 MG TAB PO SCH (10:11)
[2016-06-27] MEDS: DOCUSATE SODIUM 100 MG/10 ML UDC PO SCH ×3 (10:11→21:52)
[2016-06-27] MEDS: levETIRAcetam 500 MG/5 ML UDC TUBE SCH ×3 (10:11→21:52)
[2016-06-27] MEDS: RIFAXIMIN 550 MG TAB PO SCH ×2 (10:11→21:00)
[2016-06-27] MEDS: METOPROLOL TARTRATE 5 MG/5 ML VIAL IV PUSH PRN (15:50)
[2016-06-27] MEDS: POTASSIUM CHLOR 20 MEQ PREMIX 100 ML IV SCH ×2 (15:51→17:45)
--- NOTE | 2016-06-27 17:39 | HHI.PR ---
Subjective Interval History Alert, responses, answers questions with nodding, nasogastric tube in place, right sided weakness Review of Systems Constitutional Constitutional Remarks Difficult to obtain, the patient is not verbal however appears to deny complaints Vitals/Results Intake & Output 06/26/16 06/26/16 06/27/16 15:00 23:00 07:00 Intake Total 426 ml Output Total 850 ml 500 ml Balance -424 ml -500 ml Intake Oral 0 ml IV Total 426 ml Output Urine Total 800 ml 500 ml Stool Total 50 ml Vital Signs Vital Signs Date Time Temp Pulse Resp B/P Pulse Ox O2 Delivery O2 Flow Rate FiO2 06/27/16 17:22 96 06/27/16 16:02 109 06/27/16 15:47 98.5 96 18 162/95 100 06/27/16 15:47 96 06/27/16 14:10 110 06/27/16 13:55 97 06/27/16 12:20 112 06/27/16 11:35 115 06/27/16 11:35 98.4 106 20 165/97 98 06/27/16 10:50 100 06/27/16 09:50 112 06/27/16 08:20 120 06/27/16 07:30 98.0 123 20 174/96 99 06/27/16 07:30 100 06/27/16 06:00 105 06/27/16 05:00 107 06/27/16 04:00 107 06/27/16 03:00 120 06/27/16 03:00 98.0 107 18 105/57 98 06/27/16 02:00 102 06/27/16 01:00 110 06/27/16 00:00 104 06/26/16 23:00 110 06/26/16 23:00 98.1 110 18 159/87 98 06/26/16 22:00 106 06/26/16 21:00 108 06/26/16 20:00 104 06/26/16 20:00 98.0 111 18 159/87 98 06/26/16 19:00 109 06/26/16 18:37 95 CBC/BMP: 06/27/16 0606 06/27/16 0606 Lab Results Laboratory Tests Test 06/27/16 06:06 White Blood Count 10.4 TH/MM3 Red Blood Count 3.74 MIL/MM3 Hemoglobin 10.2 GM/DL Hematocrit 30.6 % Mean Corpuscular Volume 81.8 FL Mean Corpuscular Hemoglobin 27.3 PG Mean Corpuscular Hemoglobin 33.4 % Concent Red Cell Distribution Width 14.7 % Platelet Count 139 TH/MM3 Mean Platelet Volume 10.1 FL Neutrophils (%) (Auto) 72.6 % Lymphocytes (%) (Auto) 18.0 % Monocytes (%) (Auto) 9.2 % Eosinophils (%) (Auto) 0.1 % Basophils (%) (Auto) 0.1 % Neutrophils # (Auto) 7.5 TH/MM3 Lymphocytes # (Auto) 1.9 TH/MM3 Monocytes # (Auto) 1.0 TH/MM3 Eosinophils # (Auto) 0.0 TH/MM3 Basophils # (Auto) 0.0 TH/MM3 CBC Comment DIFF FINAL Differential Comment Sodium Level 161 MEQ/L Potassium Level 3.1 MEQ/L Chloride Level 126 MEQ/L Carbon Dioxide Level 22.6 MEQ/L Anion Gap 12 MEQ/L Blood Urea Nitrogen 32 MG/DL Creatinine 1.35 MG/DL Estimat Glomerular Filtration 47 ML/MIN Rate Random Glucose 109 MG/DL Calcium Level 9.0 MG/DL Physical Exam General General Appearance: No Acute Distress, Comfortable Eyes Eye Exam: Pupils Equal, Pupils Reactive Ears & Nose Ears & Nose Exam: Nasal Mucosa Ceres Neck Neck Exam: Neck Supple Pulmonary Resp Exam: No Distress, Rhonchi, Diminished Breath Sounds Cardiology CV Exam: Regular Gastrointestinal/Abdomen GI Exam: Soft, Non-Tender, Bowel Sounds Present Musculoskeletal MS Remarks Right-sided weakness Integumentary Skin Exam: Clear, Warm, Dry Extremeties Extremities Exam: No Edema Neurologic Neuro Exam: Awake VTE Prophylaxis VTE Prophylaxis Device: SCDs VTE Remarks Chemical DVT prophylaxis on hold as the patient is due for PEG insertion Assessment/Plan Assessment/Plan Assessment Severe hypernatremia Hypokalemia Unable to swallow Acute metabolic encephalopathy stroke Seizure disorder Dementia disorder NOS Schizoaffective disorder Acute respiratory failure History of hypertension Dyslipidemia Chronic diastolic heart failure ejection fraction 55% h/o Liver cirrhosis hyper ammonemia KARTHIK/CKD hypernatremia Streptococcus viridans UTI Possible thyroiditis History of left MCA stroke with right hemiparesis History of intracranial aneurysm and bleed Management 5% dextrose intravenously Try to bring down sodium level slowly Replace potassium PEG tube insertion Discussed with nurse The patient is being followed by neurology and GI Continue antibiotics Follow culture reports Follow sodium level Follow potassium level Follow renal indices extubated 06/23 EEG with possible epileptiform discharges Neurology following Keppra dose increased No acute CVA, Right prox ICA Plaque, not hemodynamically significant failed swallow eval Speech working, recommending PEG Tube feeds on hold sec to no NG tube consulted IR for NG replacement unable to reach family to get consent for PEG placement administrator social welfare consult placed to try to reach family, so that consent for PEG can be obtained. consult GI On lactulose and Rifaximin for hyperammonemia, repeat ammonia improving NPO i/v protonix h & H stable D51/2 NS and free water, sodium stable creatinine 1.47 , stable broad spectrum antibiotic cefepime blood culture likely contamination urine culture growing strept Viridans. repeat UA ordered d/c Flagyl, continue Cefepime labs in am thyroid work up noted with cyst, ? nuclear scan outpatient discussed with patient's nurse no family at bed side Marimar Valdivia MD Jun 27, 2016 17:39
--- NOTE | 2016-06-27 19:06 | HHI.GIFU ---
Subjective Remarks Comfortable in bed no new complaints she had a short episode of V. tach Objective Vitals I&O Vital Signs Date Time Temp Pulse Resp B/P Pulse Ox O2 Delivery O2 Flow Rate FiO2 06/27/16 18:24 85 06/27/16 17:22 96 06/27/16 16:02 109 06/27/16 15:47 98.5 96 18 162/95 100 06/27/16 15:47 96 06/27/16 14:10 110 06/27/16 13:55 97 06/27/16 12:20 112 06/27/16 11:35 115 06/27/16 11:35 98.4 106 20 165/97 98 06/27/16 10:50 100 06/27/16 09:50 112 06/27/16 08:20 120 06/27/16 07:30 98.0 123 20 174/96 99 06/27/16 07:30 100 06/27/16 06:00 105 06/27/16 05:00 107 06/27/16 04:00 107 06/27/16 03:00 120 06/27/16 03:00 98.0 107 18 105/57 98 06/27/16 02:00 102 06/27/16 01:00 110 06/27/16 00:00 104 06/26/16 23:00 110 06/26/16 23:00 98.1 110 18 159/87 98 06/26/16 22:00 106 06/26/16 21:00 108 06/26/16 20:00 104 06/26/16 20:00 98.0 111 18 159/87 98 I/O 06/26/16 06/26/16 06/26/16 06/27/16 06/27/16 06/27/16 07:00 15:00 23:00 07:00 15:00 23:00 Intake Total 350 ml 426 ml 648 ml Output Total 800 ml 850 ml 500 ml 1200 ml Balance -450 ml -424 ml -500 ml -552 ml Intake Oral 0 ml 0 ml IV Total 350 ml 426 ml 648 ml Output Urine Total 650 ml 800 ml 500 ml 1000 ml Stool Total 150 ml 50 ml 200 ml Laboratory Laboratory Tests Test 06/27/16 06:06 White Blood Count 10.4 Red Blood Count 3.74 Hemoglobin 10.2 Hematocrit 30.6 Mean Corpuscular Volume 81.8 Mean Corpuscular Hemoglobin 27.3 Mean Corpuscular Hemoglobin 33.4 Concent Red Cell Distribution Width 14.7 Platelet Count 139 Mean Platelet Volume 10.1 Neutrophils (%) (Auto) 72.6 Lymphocytes (%) (Auto) 18.0 Monocytes (%) (Auto) 9.2 Eosinophils (%) (Auto) 0.1 Basophils (%) (Auto) 0.1 Neutrophils # (Auto) 7.5 Lymphocytes # (Auto) 1.9 Monocytes # (Auto) 1.0 Eosinophils # (Auto) 0.0 Basophils # (Auto) 0.0 CBC Comment DIFF FINAL Differential Comment Sodium Level 161 Potassium Level 3.1 Chloride Level 126 Carbon Dioxide Level 22.6 Anion Gap 12 Blood Urea Nitrogen 32 Creatinine 1.35 Estimat Glomerular Filtration 47 Rate Random Glucose 109 Calcium Level 9.0 Date/Time Procedure Status Source Growth 06/25/16 13:11 Urine Culture - Final Complete Urine Catheterized Urine NO GROWTH IN 48 HOURS. Physical Exam HEENT: normocephalic; atraumatic; no jaundice. Throat is clear. NECK: Neck is supple CHEST: Chest is clear to auscultation and percussion. CARDIAC: Regular rate and rhythm with no murmur gallop or rubs. ABDOMEN: Soft, nondistended, nontender; no hepatosplenomegaly; bowel sounds are present in all four quadrants. EXTREMITIES: No clubbing, cyanosis, or edema. SKIN: Normal; no rash; no jaundice. SAS ETL DEVELOPER: No focal deficits Assessment and Plan Plan - Dysphagia/ ENT- This is a 70 year old female with PMH of left MCA stroke with right sided hemiparesis, schizoaffective disorder, history of intracranial aneurysmal bleed, hypertension, seizure disorder, liver cirrhosis, dementia, who was brought to the ER as a stroke alert, CT of the head showed no acute findings but large old left MCA stroke. Patient was started on Plavix, patient is also being treated for sepsis, and UTI. GI have been consulted for PEG tube placement. She failed swallow eval and ST recommended PEG tube. Dr. Bro has been trying to get in touch with family member without success. Patient had NGT but she pulled it out. Patient non verbal, not able to provide any HPI, most of the HPI obtained from nurse and medical chart. Plan: - EGD/PEG tomorrow - Supportive care Julius,James El-sayed MD Jun 27, 2016 19:06
[2016-06-28] VITALS (17 sets, daily range): BP systolic 154–178; BP diastolic 80–99; PULSE 60–108; RESP 16–20; TEMP 97.8–99; O2SAT 90–100
--- NOTE | 2016-06-28 00:14 | RADRPT ---
EXAM DATE/TIME: 06/27/2016 23:27 [facility] COMPARISON: CHEST SINGLE AP, June 24, 2016, 3:59. INDICATIONS : Shortness of breath. HALICAT. MEDICAL HISTORY : None. SURGICAL HISTORY : None. ENCOUNTER: Subsequent ACUITY: 1 week PAIN SCORE: Non-responsive. LOCATION: chest FINDINGS: Nasogastric tube descends to the stomach. A right chest port is present in good position. Mild infilt rate at the left lung base. Accounting for rotation, the cardiomediastinal contours are satisfactory. There are surgical clips overlying left breast and axillary region. Prior fractures of right shoulde r and left ribs. CONCLUSION: Mild left base parenchymal opacity Kye Gonzalez MD on June 28, 2016 at 0:10 Board Certified Radiologist. This report was verified electronically.
[2016-06-28] MEDS: PANTOPRAZOLE SODIUM 40 MG VIAL IV PUSH SCH (00:32)
[2016-06-28] MEDS: metroNIDAZOLE 500 MG INJ 100 ML IV SCH ×3 (00:33→17:46)
[2016-06-28] MEDS: DEXTROSE 5% IN WATE 1000ML INJ 1,000 ML IV SCH (04:18)
[2016-06-28] MEDS: HYDROCORTISONE SOD SUCCINATE 100 MG VIAL IV PUSH SCH ×3 (04:28→22:00)
[2016-06-28] MEDS: FREE WATER OG SCH ×4 (04:28→22:51)
[2016-06-28] MEDS: METHIMAZOLE 5 MG TAB PO SCH ×3 (04:28→22:00)
[2016-06-28] MEDS: CEFEPIME INJ 2,000 MG in SODIUM CHLORIDE 0.9% INJ 100 ML IV SCH ×2 (04:28→18:37)
[2016-06-28] MEDS: PROPRANOLOL HCL 10 MG TAB PO SCH ×3 (04:29→22:44)
[2016-06-28] MEDS: CHLORHEXIDINE 0.12% (ORAL KIT) 15 ML CUP MT SCH ×2 (08:00→20:00)
[2016-06-28 08:06] LABS: HEMATOCRIT 32.1 % (35.0-46.0); MEAN CELL VOLUME 84.9 FL (80.0-100.0); MEAN CORPUSCULAR HEMOGLOBIN 26.8 PG (27.0-34.0); MEAN CORPUSCULAR HGB CONC 31.6 % (32.0-36.0); PLATELET COUNT 125 TH/MM3 (150-450); RED BLOOD COUNT 3.78 MIL/MM3 (4.00-5.30); RED CELL DISTRIBUTION WIDTH 15.5 % (11.6-17.2); REVIEW FLAG FINAL; WHITE BLOOD COUNT 8.4 TH/MM3 (4.0-11.0)
[2016-06-28 08:19] LABS: BICARBONATE 22.4 MEQ/L (21.0-32.0); MAGNESIUM 1.8 MG/DL (1.5-2.5); POTASSIUM 3.3 MEQ/L (3.5-5.1)
[2016-06-28] MEDS: CLOPIDOGREL 75 MG TAB PO SCH (09:00)
[2016-06-28] MEDS: PRAVASTATIN SOD 20 MG TAB PO SCH (09:00)
[2016-06-28] MEDS: LACTULOSE SYRUP 20 GM/30 ML CUP PO SCH ×2 (09:00→22:44)
[2016-06-28] MEDS: levETIRAcetam 500 MG/5 ML UDC TUBE SCH ×2 (09:00→22:44)
[2016-06-28] MEDS: DOCUSATE SODIUM 100 MG/10 ML UDC PO SCH ×2 (09:00→22:43)
[2016-06-28] MEDS: RIFAXIMIN 550 MG TAB PO SCH ×2 (09:00→22:44)
[2016-06-28] MEDS: METOPROLOL TARTRATE 5 MG/5 ML VIAL IV PUSH PRN (09:24)
[2016-06-28] MEDS: SODIUM CHLORIDE 0.9% FLUSH 5 ML FLUSH FLUSH SCH ×2 (09:25→21:00)
--- NOTE | 2016-06-28 10:54 | PD.PROCEDR ---
GI Procedure REFERRING PHYSICIAN Dr. Bro PROCEDURE PERFORMED EGD with cautery and PEG placement INDICATION FOR PROCEDURE Dysphagia and history of CVA PROCEDURE: The procedure, risks and benefits were discussed with Ms. Childress and informed consent was obtained. Anesthesia sedated her with Diprivan. She was placed in the left lateral decubitus position. EGD: The Pentax videoscope was introduced through the oropharynx and advanced to the second portion of the duodenum under direct visualization. Retroflexion was performed in the stomach. FINDINGS: The esophagus this was normal The stomach this appeared to be unremarkable and within normal limits The duodenum there was some nodularity to the duodenal bulb and descending duodenum with AVMs that were oozing blood and so these were cauterized and no further blood was seen Following the evaluation of the stomach and the duodenum the stomach was insufflated with air and the area of PEG placement was identified through indentation and transillumination the area was prepped and draped in usual fashion 5 cc of lidocaine were injected locally a small incision was made then an Angiocath was passed into the stomach through which a guidewire was passed this was retrieved with the scope into that a PEG tube was attached and pulled into place and thereafter secured in usual fashion The patient tolerated procedure well and there are no immediate complications ESTIMATED BLOOD LOSS: Minimal SPECIMENS REMOVED: None COMPLICATIONS: None IMPRESSION: Oozing duodenal AVMs Nodular duodenitis Otherwise normal EGD Successful PEG placement PLAN: PLAN: 1. May use PEG tube for medications today 2. May start feeding tomorrow 3. May obtain nutritional consult for tube feeding 4. Flush tube with 50 cc of water every 4-6 hours 5. Always flush tube after feedings 6. Apply abdominal binder as necessary 7. Clamp G-tube after use and flush. James Madrid MD Jun 28, 2016 10:54
[2016-06-28] MEDS ORDERED: PROPOFOL 200 MG/20 ML AMP IV ONE (14:49)
--- NOTE | 2016-06-28 16:09 | HHI.PR ---
Subjective Interval History Alert, mildly confused, continues to cough, Review of Systems Constitutional Constitutional Remarks Difficult to obtain, bedridden, the patient is denying complaints at this time however she is coughing frequently, 10 systems reviewed and otherwise negative but not reliable Vitals/Results Intake & Output 06/27/16 06/27/16 06/28/16 15:00 23:00 07:00 Intake Total 648 ml 2242 ml Output Total 1200 ml 1050 ml Balance -552 ml 1192 ml IV Total 648 ml 1692 ml Tube Feeding 550 ml Output Urine Total 1000 ml 1050 ml Stool Total 200 ml Vital Signs Vital Signs Date Time Temp Pulse Resp B/P Pulse Ox O2 Delivery O2 Flow Rate FiO2 06/28/16 15:42 88 06/28/16 15:42 97.8 63 18 157/82 99 06/28/16 14:33 68 06/28/16 13:01 63 06/28/16 12:08 67 06/28/16 11:45 98.0 85 20 159/80 100 06/28/16 11:45 88 06/28/16 10:53 70 16 144/77 97 06/28/16 10:48 71 16 152/79 97 06/28/16 10:43 98.5 81 16 157/90 98 06/28/16 08:45 71 06/28/16 08:45 97.9 85 20 161/82 100 06/28/16 06:00 89 06/28/16 05:00 82 06/28/16 04:00 97.8 80 16 154/85 100 06/28/16 04:00 96 06/28/16 03:00 70 06/28/16 02:00 70 06/28/16 01:00 92 06/28/16 00:00 99.0 108 18 160/93 98 06/28/16 00:00 96 06/27/16 23:00 124 06/27/16 22:00 96 06/27/16 21:00 90 06/27/16 20:00 93 06/27/16 20:00 98.5 91 18 123/88 99 06/27/16 18:24 85 06/27/16 17:22 96 CBC/BMP: 06/28/16 0728 06/28/16 0728 Lab Results Laboratory Tests Test 06/28/16 07:28 White Blood Count 8.4 TH/MM3 Red Blood Count 3.78 MIL/MM3 Hemoglobin 10.1 GM/DL Hematocrit 32.1 % Mean Corpuscular Volume 84.9 FL Mean Corpuscular Hemoglobin 26.8 PG Mean Corpuscular Hemoglobin 31.6 % Concent Red Cell Distribution Width 15.5 % Platelet Count 125 TH/MM3 Mean Platelet Volume 10.1 FL Sodium Level 157 MEQ/L Potassium Level 3.3 MEQ/L Chloride Level 124 MEQ/L Carbon Dioxide Level 22.4 MEQ/L Anion Gap 11 MEQ/L Blood Urea Nitrogen 27 MG/DL Creatinine 1.30 MG/DL Estimat Glomerular Filtration 49 ML/MIN Rate Random Glucose 165 MG/DL Calcium Level 8.5 MG/DL Phosphorus Level 2.2 MG/DL Magnesium Level 1.8 MG/DL Physical Exam General General Appearance: No Acute Distress, Comfortable Eyes Eye Exam: Pupils Equal, Pupils Reactive Ears & Nose Ears & Nose Exam: Nasal Mucosa [place] Neck Neck Exam: Neck Supple Pulmonary Resp Exam: No Distress, Rhonchi, Diminished Breath Sounds Cardiology CV Exam: Regular Gastrointestinal/Abdomen GI Exam: Soft, Non-Tender, Bowel Sounds Present Musculoskeletal MS Remarks Right-sided weakness Integumentary Skin Exam: Clear, Warm, Dry Extremeties Extremities Exam: No Edema Neurologic Neuro Exam: Awake VTE Prophylaxis VTE Prophylaxis Device: SCDs VTE Remarks Chemical DVT prophylaxis on hold as the patient is due for PEG insertion Assessment/Plan Assessment/Plan Assessment Severe hypernatremia , looking relatively better today Hypokalemia , level still low despite replacement Hypophosphatemia Respiratory failure earlier this admission, extubated to 06/23/16 Left base parenchymal opacity, question pneumonia Unable to swallow , status post PEG tube placement 06/28/16 metabolic encephalopathy stroke Seizure disorder Dementia disorder NOS Schizoaffective disorder Acute respiratory failure History of hypertension Dyslipidemia Chronic diastolic heart failure ejection fraction 55% h/o Liver cirrhosis hyper ammonemia KARTHIK/CKD hypernatremia Streptococcus viridans UTI Possible thyroiditis History of left MCA stroke with right hemiparesis History of intracranial aneurysm and bleed Management 5% dextrose intravenously with potassium chloride Replace phosphate Try to bring down sodium level slowly Replace potassium PEG tube care, start feeding when okay with GI Discussed with nurse The patient is being followed by neurology and GI Continue antibiotics Follow culture reports Follow sodium level Follow potassium level Follow renal indices Discussed with nurse Marimar Valdivia MD Jun 28, 2016 16:09 EEG with possible epileptiform discharges Neurology following Keppra dose increased No acute CVA, Right prox ICA Plaque, not hemodynamically significant failed swallow eval Speech working, recommending PEG Tube feeds on hold sec to no NG tube consulted IR for NG replacement unable to reach family to get consent for PEG placement social studies department chair consult placed to try to reach family, so that consent for PEG can be obtained. consult GI On lactulose and Rifaximin for hyperammonemia, repeat ammonia improving NPO i/v protonix h & H stable D51/2 NS and free water, sodium stable creatinine 1.47 , stable broad spectrum antibiotic cefepime blood culture likely contamination urine culture growing strept Viridans. repeat UA ordered d/c Flagyl, continue Cefepime labs in am thyroid work up noted with cyst, ? nuclear scan outpatient discussed with patient's nurse no family at bed side Marimar Valdivia MD Jun 28, 2016 16:09
[2016-06-28] MEDS ORDERED: POTASSIUM PHOSPHATE INJ 30 MMOL in SODIUM CHLOR 0.9% 250 ML INJ 250 ML IV ONE (16:15)
[2016-06-28] MEDS ORDERED: ENALAPRILAT 1.25 MG/ML VIAL IV PUSH PRN (18:00)
[2016-06-28] MEDS: HEPARIN SODIUM - SQ 10,000 UNITS/ML VIAL SQ SCH (22:51)
[2016-06-29] VITALS: BP 142/78; PULSE 85; RESP 20; TEMP 98.3; O2SAT 98
[2016-06-29] MEDS: PANTOPRAZOLE SODIUM 40 MG VIAL IV PUSH SCH (01:15)
[2016-06-29 04:00] VITALS: BP 155/88; PULSE 88; RESP 20; TEMP 97; O2SAT 97
[2016-06-29] MEDS: HYDROCORTISONE SOD SUCCINATE 100 MG VIAL IV PUSH SCH ×2 (06:00→14:00)
[2016-06-29] MEDS: PROPRANOLOL HCL 10 MG TAB PO SCH ×3 (06:00→22:00)
[2016-06-29] MEDS: FREE WATER OG SCH ×3 (06:00→17:23)
[2016-06-29] MEDS: metroNIDAZOLE 500 MG INJ 100 ML IV SCH ×3 (06:12→17:22)
[2016-06-29] MEDS: CEFEPIME INJ 2,000 MG in SODIUM CHLORIDE 0.9% INJ 100 ML IV SCH ×2 (06:13→17:22)
[2016-06-29] MEDS: METHIMAZOLE 5 MG TAB PO SCH ×2 (06:13→14:00)
[2016-06-29 08:00] VITALS: BP 166/84; PULSE 75; RESP 18; TEMP 97.1; O2SAT 95
[2016-06-29] MEDS: CHLORHEXIDINE 0.12% (ORAL KIT) 15 ML CUP MT SCH ×2 (08:00→20:00)
[2016-06-29] MEDS: LACTULOSE SYRUP 20 GM/30 ML CUP PO SCH (08:34)
[2016-06-29] MEDS: DOCUSATE SODIUM 100 MG/10 ML UDC PO SCH (08:34)
[2016-06-29] MEDS: levETIRAcetam 500 MG/5 ML UDC TUBE SCH (08:34)
[2016-06-29] MEDS: CLOPIDOGREL 75 MG TAB PO SCH (08:34)
[2016-06-29] MEDS: PRAVASTATIN SOD 20 MG TAB PO SCH (08:34)
[2016-06-29] MEDS: RIFAXIMIN 550 MG TAB PO SCH (08:34)
--- NOTE | 2016-06-29 08:44 | HHI.GIFU ---
Subjective Remarks Resting in bed in no distress. Denies any abdominal pain, nausea, vomiting. ( Fernanda Tucker) Objective Vitals I&O Vital Signs Date Time Temp Pulse Resp B/P Pulse Ox O2 Delivery O2 Flow Rate FiO2 06/29/16 08:00 97.1 75 18 166/84 95 06/29/16 04:00 97.0 88 20 155/88 97 06/29/16 00:00 98.3 85 20 142/78 98 06/28/16 20:00 98.4 83 20 167/99 90 06/28/16 18:39 98.3 68 20 178/97 93 06/28/16 17:05 72 06/28/16 16:06 60 06/28/16 15:42 88 06/28/16 15:42 97.8 63 18 157/82 99 06/28/16 14:33 68 06/28/16 13:01 63 06/28/16 12:08 67 06/28/16 11:45 98.0 85 20 159/80 100 06/28/16 11:45 88 06/28/16 10:53 70 16 144/77 97 06/28/16 10:48 71 16 152/79 97 06/28/16 10:43 98.5 81 16 157/90 98 06/28/16 08:45 71 06/28/16 08:45 97.9 85 20 161/82 100 I/O 06/28/16 06/28/16 06/28/16 06/29/16 06/29/16 06/29/16 07:00 15:00 23:00 07:00 15:00 23:00 Intake Total 2242 ml 50 ml 1150 ml Output Total 1050 ml 875 ml 800 ml Balance 1192 ml 50 ml 275 ml -800 ml IV Total 1692 ml 50 ml 1000 ml Tube Feeding 550 ml Other 150 ml Output Urine Total 1050 ml 675 ml 800 ml Stool Total 200 ml Laboratory Date/Time Procedure Status Source Growth 06/25/16 13:11 Urine Culture - Final Complete Urine Catheterized Urine NO GROWTH IN 48 HOURS. Imaging Last Impressions Chest X-Ray 06/27/16 0000 Signed Impressions: Service Date/Time: June 23:27 - CONCLUSION: Mild left base parenchymal opacity Kye Gonzalez MD Thyroid Ultrasound 06/22/16 0000 Signed Impressions: Service Date/Time: Wednesday, June 22, 2016 21:59 - CONCLUSION: Complex cystic left thyroid mass measuring 4.6 cm. Everton Archuleta MD Renal Ultrasound 06/18/16 0343 Signed Impressions: Service Date/Time: Saturday, June 18, 2016 08:15 - CONCLUSION: 1. Increased echogenicity which can be seen with medical renal disease. Right kidney is slightly small in size. 2. Urinary bladder is decompressed by Rosales catheter. Gideon De La Fuente MD Brain MRI 06/18/16 0102 Signed Impressions: Service Date/Time: Saturday, June 18, 2016 02:28 - CONCLUSION: 1. Widespread encephalomalacia throughout the left cerebral hemisphere. An area of acute infarction is not clearly seen. There is very prominent expansion of the left lateral ventricle. 2. Suspected underlying small vessel ischemic change in the white matter on the right hemisphere. 3. Areas of signal abnormality on the SWI images related to prior areas of hemorrhage. No acute hemorrhage is seen. Kye Montiel MD Head Magnetic Resonance Angiography 06/18/16 0000 Signed Impressions: Service Date/Time: Saturday, June 18, 2016 02:28 - CONCLUSION: No acute areas of occlusion. There is asymmetric and diminished flow in the more distal left middle cerebral artery territory. Kye Montiel MD Carotid Artery Ultrasound 06/18/16 0000 Signed Impressions: Service Date/Time: Saturday, June 18, 2016 07:56 - CONCLUSION: 1. Severe plaque in the right proximal right internal carotid artery but no hemodynamically significant stenosis identified. May consider a carotid CTA to ensure no significant stenosis. 2. No significant stenosis in the left carotid artery. Gideon De La Fuente MD Head CT 06/17/16 0000 Signed Impressions: Service Date/Time: Friday, June 17, 2016 20:15 - CONCLUSION: No acute intracranial abnormality. Old left middle cerebral artery distribution infarct. Kye Young MD Physical Exam HEENT: Normocephalic; atraumatic; no jaundice. Throat is clear. NECK: Neck is supple CHEST: CTA CARDIAC: RRR ABDOMEN: Soft, nondistended, nontender; no hepatosplenomegaly; bowel sounds are present in all four quadrants. PEG tube site without redness or swelling. SKIN: Normal; no rash; no jaundice. 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 (Fernanda Tucker) Assessment and Plan Plan ASSESSMENT: - Dysphagia/FEN. Pt with hx of left MCA stroke with right sided hemiparesis, schizoaffective disorder, history of intracranial aneurysmal bleed, hypertension, seizure disorder, liver cirrhosis, dementia, who was brought to the ER as a stroke alert, CT of the head showed no acute findings but large old left MCA stroke. Patient was started on Plavix, patient is also being treated for sepsis, and UTI. She failed swallow eval and ST recommended PEG tube. S/P EGD with PEG tube placement (06/28/16)---> Oozing duodenal AVMs, nodular duodenitis, otherwise normal egd, S/P successful PEG tube site. Site without redness, drainage, swelling. Shot Coat Tender recommends Nepro at 40cc/hr. Plan: - PEG tube site without redness or swelling. - Nepro at 30cc/hr and increase to GR 40cc/hr - Add Prevacid 30mg per peg daily - Supportive care - Further recommendations to follow based on results of above - Pt seen and examined by Dr. Madrid and myself and this note is written on his behalf (Fernanda Tucker) Physician Comments Patient seen and examined Agree with above Continue with current supportive care Monitor labs GI will sign off (James Madrid MD) Fernanda Tucker Jun 29, 2016 08:44 James Madrid MD Jun 29, 2016 14:25
[2016-06-29] MEDS: SODIUM CHLORIDE 0.9% FLUSH 5 ML FLUSH FLUSH SCH ×2 (08:47→21:00)
[2016-06-29] MEDS: POTASSIUM CHLORIDE INJ 40 MEQ in DEXTROSE 5% IN WATE 1000ML INJ 1,000 ML IV SCH ×2 (11:13)
[2016-06-29] MEDS: HEPARIN SODIUM - SQ 10,000 UNITS/ML VIAL SQ SCH ×2 (11:13→11:18)
[2016-06-29] MEDS: LANSOPRAZOLE SOLUTAB 30 MG TAB PEG SCH (11:13)
[2016-06-29 12:00] VITALS: BP 165/77; PULSE 93; RESP 16; TEMP 98.6; O2SAT 97
--- NOTE | 2016-06-29 12:03 | HHI.PR ---
Subjective Remarks Alert, mildly confused, continues to cough, Objective Objective Results - Vital Signs Date Time Temp Pulse Resp B/P Pulse Ox O2 Delivery O2 Flow Rate FiO2 06/29/16 08:00 97.1 75 18 166/84 95 06/29/16 04:00 97.0 88 20 155/88 97 06/29/16 00:00 98.3 85 20 142/78 98 06/28/16 20:00 98.4 83 20 167/99 90 06/28/16 18:39 98.3 68 20 178/97 93 06/28/16 17:05 72 06/28/16 16:06 60 06/28/16 15:42 88 06/28/16 15:42 97.8 63 18 157/82 99 06/28/16 14:33 68 06/28/16 13:01 63 06/28/16 12:08 67 I/O 06/28/16 06/28/16 06/28/16 06/29/16 06/29/16 06/29/16 07:00 15:00 23:00 07:00 15:00 23:00 Intake Total 2242 ml 50 ml 1150 ml Output Total 1050 ml 875 ml 800 ml Balance 1192 ml 50 ml 275 ml -800 ml IV Total 1692 ml 50 ml 1000 ml Tube Feeding 550 ml Other 150 ml Output Urine Total 1050 ml 675 ml 800 ml Stool Total 200 ml Result Diagram: 06/28/1672706/28/16727 Other Results Date/Time Procedure Status Source Growth 06/25/16 13:11 Urine Culture - Final Complete Urine Catheterized Urine NO GROWTH IN 48 HOURS. ROS General: Other (Difficult to obtain. No SOB/Diarrhea/fever.) Physical Exam Physical Exam PHYSICAL EXAMINATION GENERAL: This is a well-developed, well-nourished female who appears to be in no acute distress. She is awake HEAD: Normocephalic without any lesion or mass noted. Facial features appear symmetric. EYES: Perrla, Normal eye movement, No icterus. OROPHARYNGEAL: Oropharynx without erythema or edema. MOUTH/THROAT: Buccal mucosa is moist. NECK: Supple. No nuchal rigidity or lymphadenopathy. Trachea midline without deviation. Thyroid not palpable, no bruits appreciated. CARDIAC: Regular rhythm, regular rate, S1 and S2 are heard. LUNGS: Decreased bs lisa with wheezes. ABDOMEN: Soft, nontender, no organomegaly or masses. Bowel sounds are heard in all four quadrants. No rebound. No guarding. EXTREMITIES: Trace edema. NEUROLOGICAL: Right sided weakness. SKIN:Warm and moist A/P Assessment and Plan Severe hypernatremia Hypokalemia , level still low despite replacement Hypophosphatemia Respiratory failure earlier this admission, extubated to 06/23/16 Left base parenchymal opacity, question pneumonia Unable to swallow , status post PEG tube placement 06/28/16 metabolic encephalopathy stroke Seizure disorder Dementia disorder NOS Schizoaffective disorder Acute respiratory failure History of hypertension Dyslipidemia Chronic diastolic heart failure ejection fraction 55% h/o Liver cirrhosis hyper ammonemia KARTHIK/CKD hypernatremia Streptococcus viridans UTI Possible thyroiditis History of left MCA stroke with right hemiparesis History of intracranial aneurysm and bleed Management 5% dextrose intravenously with potassium chloride Replace phosphate Try to bring down sodium level slowly Replace potassium PEG tube care, start feeding when okay with GI Discussed with nurse The patient is being followed by neurology and GI Continue antibiotics Follow culture reports Follow sodium level Follow potassium level Follow renal indices Discussed with nurse Fariha Berumen MD Jun 29, 2016 12:03
[2016-06-29] MEDS ORDERED: POTASSIUM PHOSPHATE INJ 15 MMOL in SODIUM CHLORIDE 0.9% INJ 150 ML IV ONE (14:00)
[2016-06-29 16:00] VITALS: BP 158/82; PULSE 94; RESP 19; TEMP 97.9; O2SAT 95
[2016-06-29 20:25] VITALS: BP 166/72; PULSE 81; RESP 16; TEMP 97.8; O2SAT 98
[2016-06-30 00:20] VITALS: BP 159/90; PULSE 93; RESP 18; TEMP 96.9; O2SAT 96
[2016-06-30] MEDS: METHIMAZOLE 5 MG TAB PO SCH ×4 (00:53→21:13)
[2016-06-30] MEDS: FREE WATER OG SCH ×4 (00:54→17:26)
[2016-06-30] MEDS: DOCUSATE SODIUM 100 MG/10 ML UDC PO SCH ×3 (00:54→21:13)
[2016-06-30] MEDS: HEPARIN SODIUM - SQ 10,000 UNITS/ML VIAL SQ SCH ×3 (00:54→22:37)
[2016-06-30] MEDS: HYDROCORTISONE SOD SUCCINATE 100 MG VIAL IV PUSH SCH ×4 (00:54→21:13)
[2016-06-30] MEDS: RIFAXIMIN 550 MG TAB PO SCH ×3 (00:54→21:14)
[2016-06-30] MEDS: levETIRAcetam 500 MG/5 ML UDC TUBE SCH ×3 (00:54→21:14)
[2016-06-30] MEDS: LACTULOSE SYRUP 20 GM/30 ML CUP PO SCH ×3 (00:54→21:14)
[2016-06-30] MEDS: POTASSIUM CHLORIDE INJ 40 MEQ in DEXTROSE 5% IN WATE 1000ML INJ 1,000 ML IV SCH ×6 (00:55→17:29)
[2016-06-30] MEDS: metroNIDAZOLE 500 MG INJ 100 ML IV SCH ×3 (01:07→17:29)
[2016-06-30 04:06] VITALS: BP 148/81; PULSE 92; RESP 20; TEMP 96.6; O2SAT 97
[2016-06-30] MEDS: PROPRANOLOL HCL 10 MG TAB PO SCH (06:01)
[2016-06-30] MEDS: CEFEPIME INJ 2,000 MG in SODIUM CHLORIDE 0.9% INJ 100 ML IV SCH ×2 (06:10→17:30)
[2016-06-30 08:00] VITALS: BP 152/85; PULSE 76; RESP 18; TEMP 98; O2SAT 98
[2016-06-30] MEDS: CHLORHEXIDINE 0.12% (ORAL KIT) 15 ML CUP MT SCH ×2 (08:00→20:00)
[2016-06-30] MEDS: CLOPIDOGREL 75 MG TAB PO SCH (09:41)
[2016-06-30] MEDS: PRAVASTATIN SOD 20 MG TAB PO SCH (09:41)
[2016-06-30] MEDS: LANSOPRAZOLE SOLUTAB 30 MG TAB PEG SCH (09:42)
[2016-06-30] MEDS: SODIUM CHLORIDE 0.9% FLUSH 5 ML FLUSH FLUSH SCH ×2 (09:42→21:00)
[2016-06-30 10:05] LABS: HEMATOCRIT 35.2 % (35.0-46.0); MEAN CELL VOLUME 82.4 FL (80.0-100.0); MEAN CORPUSCULAR HGB CONC 32.8 % (32.0-36.0); PLATELET COUNT 113 TH/MM3 (150-450); RED BLOOD COUNT 4.27 MIL/MM3 (4.00-5.30); RED CELL DISTRIBUTION WIDTH 15.7 % (11.6-17.2); REVIEW FLAG FINAL; WHITE BLOOD COUNT 12.5 TH/MM3 (4.0-11.0)
[2016-06-30 10:32] LABS: BICARBONATE 24.7 MEQ/L (21.0-32.0); POTASSIUM 3.4 MEQ/L (3.5-5.1)
[2016-06-30 12:00] VITALS: BP 165/81; PULSE 72; RESP 18; TEMP 98.2; O2SAT 98
[2016-06-30 14:00] VITALS: BP 158/88; PULSE 74; RESP 19; TEMP 97.8; O2SAT 98
--- NOTE | 2016-06-30 14:02 | HHI.PR ---
Subjective Remarks Alert, mildly confused, no acute events. Objective Objective Results - Vital Signs Date Time Temp Pulse Resp B/P Pulse Ox O2 Delivery O2 Flow Rate FiO2 06/30/16 12:00 98.2 72 18 165/81 98 06/30/16 08:00 98.0 76 18 152/85 98 06/30/16 04:06 96.6 92 20 148/81 97 06/30/16 00:20 96.9 93 18 159/90 96 06/29/16 20:25 97.8 81 16 166/72 98 06/29/16 16:00 97.9 94 19 158/82 95 I/O 06/29/16 06/29/16 06/29/16 06/30/16 06/30/16 06/30/16 07:00 15:00 23:00 07:00 15:00 23:00 Output Total 800 ml 2500 ml 200 ml 400 ml Balance -800 ml -2500 ml -200 ml -400 ml Output Urine Total 800 ml 2500 ml 200 ml 400 ml Result Diagram: 06/30/1624 06/30/16 0924 Other Results Laboratory Tests Test 06/30/16 09:24 White Blood Count 12.5 Red Blood Count 4.27 Hemoglobin 11.5 Hematocrit 35.2 Mean Corpuscular Volume 82.4 Mean Corpuscular Hemoglobin 27.0 Mean Corpuscular Hemoglobin 32.8 Concent Red Cell Distribution Width 15.7 Platelet Count 113 Mean Platelet Volume 10.3 Sodium Level 150 Potassium Level 3.4 Chloride Level 116 Carbon Dioxide Level 24.7 Anion Gap 9 Blood Urea Nitrogen 22 Creatinine 1.40 Estimat Glomerular Filtration 45 Rate Random Glucose 196 Calcium Level 8.1 Phosphorus Level 1.3 ROS General: Weakness HEENT: No: Sore Throat, Dysphagia, Other Cardiac: No: Chest Pain, Edema, Palpitations, Other Pulmonary: Cough GI: No: Abdominal Pain, BM, Diarrhea, N/V, Other /CABLE WIRER: No: Dysuria, Urgency, Other Neuro/MS: No: Lightheaded, Confusion, Other Psych: No: Anxiety, Depression, Other Skin: No: Itching, Rash, Other Physical Exam Physical Exam PHYSICAL EXAMINATION GENERAL: This is a well-developed, well-nourished female who appears to be in no acute distress. She is awake HEAD: Normocephalic without any lesion or mass noted. Facial features appear symmetric. EYES: Perrla, Normal eye movement, No icterus. OROPHARYNGEAL: Oropharynx without erythema or edema. MOUTH/THROAT: Buccal mucosa is moist. NECK: Supple. No nuchal rigidity or lymphadenopathy. Trachea midline without deviation. Thyroid not palpable, no bruits appreciated. CARDIAC: Regular rhythm, regular rate, S1 and S2 are heard. LUNGS: Decreased bs lisa with wheezes. ABDOMEN: Soft, nontender, no organomegaly or masses. Bowel sounds are heard in all four quadrants. No rebound. No guarding. EXTREMITIES: Trace edema. NEUROLOGICAL: Right sided weakness. SKIN:Warm and moist A/P Assessment and Plan Severe hypernatremia Hypokalemia , level still low despite replacement Hypophosphatemia Respiratory failure earlier this admission, extubated to 06/23/16 Left base parenchymal opacity, question pneumonia Unable to swallow , status post PEG tube placement 06/28/16 metabolic encephalopathy stroke Seizure disorder Dementia disorder NOS Schizoaffective disorder Acute respiratory failure History of hypertension Dyslipidemia Chronic diastolic heart failure ejection fraction 55% h/o Liver cirrhosis hyper ammonemia KARTHIK/CKD Streptococcus viridans UTI Possible thyroiditis History of left MCA stroke with right hemiparesis History of intracranial aneurysm and bleed Management 5% dextrose intravenously with potassium chloride Replace phosphate Sodium level better but still high at 150. Replace potassium PEG tube care HTN still not at goal. Increase propranolol to 20mg po tid. Monitor BP/HR. Discussed with nurse The patient is being followed by neurology and GI Continue antibiotics Cultures neg so far. Follow sodium level Follow potassium level Follow phosphorus level. Follow renal indices Discussed with nurse Fariha Berumen MD Jun 30, 2016 14:02
[2016-06-30] MEDS ORDERED: POTASSIUM PHOSPHATE INJ 30 MMOL in SODIUM CHLOR 0.9% 250 ML INJ 250 ML IV ONE (14:15)
[2016-06-30 21:11] VITALS: BP 143/85; PULSE 94; RESP 19; TEMP 98.6; O2SAT 95
[2016-06-30] MEDS: PROPRANOLOL HCL 20 MG TAB PO SCH (21:13)
[2016-07-01 00:07] VITALS: BP 124/64; PULSE 74; RESP 17; TEMP 98.3; O2SAT 98
[2016-07-01] MEDS: FREE WATER OG SCH ×5 (01:16→22:47)
[2016-07-01] MEDS: metroNIDAZOLE 500 MG INJ 100 ML IV SCH ×2 (01:17→09:00)
[2016-07-01] MEDS: POTASSIUM CHLORIDE INJ 40 MEQ in DEXTROSE 5% IN WATE 1000ML INJ 1,000 ML IV SCH ×4 (01:26→13:08)
[2016-07-01 05:17] VITALS: BP 121/62; PULSE 77; RESP 19; TEMP 98; O2SAT 98
[2016-07-01] MEDS: PROPRANOLOL HCL 20 MG TAB PO SCH ×3 (05:22→22:46)
[2016-07-01] MEDS: METHIMAZOLE 5 MG TAB PO SCH ×3 (05:22→22:46)
[2016-07-01] MEDS: HYDROCORTISONE SOD SUCCINATE 100 MG VIAL IV PUSH SCH ×3 (05:23→22:49)
[2016-07-01] MEDS: CEFEPIME INJ 2,000 MG in SODIUM CHLORIDE 0.9% INJ 100 ML IV SCH (05:38)
[2016-07-01 08:00] VITALS: BP 128/66; PULSE 78; RESP 20; TEMP 98.1; O2SAT 99
[2016-07-01 08:26] LABS: BASOPHIL % 0.1 % (0.0-2.0); HEMATOCRIT 32.8 % (35.0-46.0); LYMPHOCYTE # 0.9 TH/MM3 (1.0-4.8); MEAN CELL VOLUME 84.1 FL (80.0-100.0); MEAN CORPUSCULAR HEMOGLOBIN 26.5 PG (27.0-34.0); MEAN CORPUSCULAR HGB CONC 31.5 % (32.0-36.0); MONO % 3.6 % (0.0-8.0); NEUT % 90.3 % (16.0-70.0); PLATELET COUNT 96 TH/MM3 (150-450); RED CELL DISTRIBUTION WIDTH 15.9 % (11.6-17.2); WHITE BLOOD COUNT 15.6 TH/MM3 (4.0-11.0)
[2016-07-01 08:34] LABS: HEMO FLAGS AUTO DIFF
[2016-07-01 08:54] LABS: BICARBONATE 21.8 MEQ/L (21.0-32.0); POTASSIUM 3.9 MEQ/L (3.5-5.1)
[2016-07-01] MEDS: LANSOPRAZOLE SOLUTAB 30 MG TAB PEG SCH (08:59)
[2016-07-01] MEDS: SODIUM CHLORIDE 0.9% FLUSH 5 ML FLUSH FLUSH SCH ×2 (08:59→22:49)
[2016-07-01] MEDS: RIFAXIMIN 550 MG TAB PO SCH ×2 (08:59→22:46)
[2016-07-01] MEDS: LACTULOSE SYRUP 20 GM/30 ML CUP PO SCH ×2 (08:59→22:46)
[2016-07-01] MEDS: PRAVASTATIN SOD 20 MG TAB PO SCH (08:59)
[2016-07-01] MEDS: DOCUSATE SODIUM 100 MG/10 ML UDC PO SCH ×2 (08:59→22:46)
[2016-07-01] MEDS: levETIRAcetam 500 MG/5 ML UDC TUBE SCH ×2 (08:59→22:46)
[2016-07-01] MEDS: CLOPIDOGREL 75 MG TAB PO SCH (08:59)
[2016-07-01] MEDS: CHLORHEXIDINE 0.12% (ORAL KIT) 15 ML CUP MT SCH ×2 (09:02→20:00)
[2016-07-01 09:22] LABS: PLATELET ESTIMATE SMEAR LOW (NORMAL); PLATELET MORPHOLOGY ENLARGED (NORMAL); SCAN/DIFF AUTO DIFF CONFIRMED
[2016-07-01 12:00] VITALS: BP 103/54; PULSE 74; RESP 16; TEMP 98.1; O2SAT 100
[2016-07-01] MEDS ORDERED: PHENYTOIN INJ 1,000 MG in SODIUM CHLORIDE 0.9% INJ 100 ML IV ONE (13:00)
[2016-07-01] MEDS: HEPARIN SODIUM - SQ 10,000 UNITS/ML VIAL SQ SCH ×2 (13:07→22:47)
--- NOTE | 2016-07-01 13:44 | HHI.PR ---
Subjective Subjective Remarks non verbal following commands with left hand tracking with her eyes audible ronchi on tube feedings no fever no acute changes overnight Review of Systems Constitutional Constitutional Remarks unable to do ROS Vitals/Results Intake & Output 06/30/16 06/30/16 07/01/16 15:00 23:00 07:00 Output Total 750 ml 200 ml 550 ml Balance -750 ml -200 ml -550 ml Output Urine Total 750 ml 200 ml 300 ml Stool Total 250 ml # Bowel Movements 0 Vital Signs Vital Signs Date Time Temp Pulse Resp B/P Pulse Ox O2 Delivery O2 Flow Rate FiO2 07/01/16 12:00 98.1 74 16 103/54 100 07/01/16 08:00 98.1 78 20 128/66 99 07/01/16 05:17 98.0 77 19 121/62 98 07/01/16 00:07 98.3 74 17 124/64 98 06/30/16 21:11 98.6 94 19 143/85 95 06/30/16 14:00 97.8 74 19 158/88 98 CBC/BMP: 07/01/16 0745 07/01/16 0745 Lab Results Laboratory Tests Test 07/01/16 07:45 White Blood Count 15.6 TH/MM3 Red Blood Count 3.90 MIL/MM3 Hemoglobin 10.3 GM/DL Hematocrit 32.8 % Mean Corpuscular Volume 84.1 FL Mean Corpuscular Hemoglobin 26.5 PG Mean Corpuscular Hemoglobin 31.5 % Concent Red Cell Distribution Width 15.9 % Platelet Count 96 TH/MM3 Mean Platelet Volume 10.5 FL Neutrophils (%) (Auto) 90.3 % Lymphocytes (%) (Auto) 6.0 % Monocytes (%) (Auto) 3.6 % Eosinophils (%) (Auto) 0.0 % Basophils (%) (Auto) 0.1 % Neutrophils # (Auto) 14.0 TH/MM3 Lymphocytes # (Auto) 0.9 TH/MM3 Monocytes # (Auto) 0.6 TH/MM3 Eosinophils # (Auto) 0.0 TH/MM3 Basophils # (Auto) 0.0 TH/MM3 CBC Comment AUTO DIFF Differential Comment AUTO DIFF CONFIRMED Platelet Estimate LOW Platelet Morphology Comment ENLARGED Sodium Level 148 MEQ/L Potassium Level 3.9 MEQ/L Chloride Level 116 MEQ/L Carbon Dioxide Level 21.8 MEQ/L Anion Gap 10 MEQ/L Blood Urea Nitrogen 29 MG/DL Creatinine 1.42 MG/DL Estimat Glomerular Filtration 45 ML/MIN Rate Random Glucose 168 MG/DL Calcium Level 7.7 MG/DL Phosphorus Level 1.6 MG/DL Physical Exam General General Appearance: No Acute Distress, Comfortable Eyes Eye Exam: Pupils Equal, Pupils Reactive Ears & Nose Ears & Nose Exam: Nasal Mucosa [place] Neck Neck Exam: Neck Supple Pulmonary Resp Exam: No Distress, Rhonchi, Diminished Breath Sounds Cardiology CV Exam: Regular Gastrointestinal/Abdomen GI Exam: Soft, Non-Tender, Bowel Sounds Present GI Remarks PEG tube with feedings, no bleeding, no exudate from insertion site Genitourinary Exam: Clear Urine Remarks KITCHEN Musculoskeletal MS Exam: Atrophy Integumentary Skin Exam: Clear, Warm, Dry Extremeties Extremities Exam: No Edema, Pedal Pulses Palpable Neurologic Neuro Exam: Awake Neuro Remarks right sided hemiplegia VTE Prophylaxis VTE Prophylaxis Device: SCDs VTE Prophylaxis Meds: Heparin PUD Prophylasis PUD Remarks Prevacid Assessment/Plan Assessment/Plan Assessment Electrolyte imbalance Respiratory failure earlier this admission, extubated to 06/23/16 Left base parenchymal opacity, question pneumonia Unable to swallow , status post PEG tube placement 06/28/16 metabolic encephalopathy Hx stroke Seizure disorder, recurrent Dementia disorder NOS Schizoaffective disorder Acute respiratory failure History of hypertension Dyslipidemia Chronic diastolic heart failure ejection fraction 55% h/o Liver cirrhosis hyper ammonemia KARTHIK/CKD hypernatremia Streptococcus viridans UTI Possible thyroiditis History of left MCA stroke with right hemiparesis History of intracranial aneurysm and bleed Management Continue with 5% dextrose intravenously with potassium chloride Replace phosphate Monitor BPM Na improving, 148 Continue with tube feeding Appreciate GI input Seizure precautions on Keppra and Dilantin reconsulted neurology for recurrent seizures, input appreciated, meds adjusted EEG ordered, f/u results Stop antibiotics no fever received 14 days D/C kitchen Check ammonia in am continue Lactulose/Rifaximin Liquid stool Thrombocytopenia, plat. trending down monitor for bleeding Wean down Hydrocortisone Labs in am Heparin for DVT prophylaxis PPI for GI prophylaxis CM for dc planning, hopefully to SNF in 1-2 days D/W RN D/W Dr. Valdivia This patient was seen by myself and Dr. Valdivia, this note is written on his behalf. Yessy Nicole Jul 01, 2016 13:44
[2016-07-01] MEDS ORDERED: POTASSIUM PHOSPHATE INJ 15 MMOL in SODIUM CHLORIDE 0.9% INJ 150 ML IV ONE (15:00)
[2016-07-01 16:00] VITALS: BP 118/68; PULSE 78; RESP 16; TEMP 98.1; O2SAT 98
[2016-07-01] MEDS: RESP: ALBUTEROL 2.5 MG/IPRATROPIUM 0.5 MG NEB (SCH) NEB ×2 (16:31→20:00)
[2016-07-01] MEDS: PHENYTOIN INJ 100 MG/2 ML VIAL IV SCH ×2 (16:51→22:48)
--- NOTE | 2016-07-01 18:55 | HHI.PR ---
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 four hourly. - Plavix 75 mg daily. - Keppra 1gm Q12h. - Repeat Keppra level - Loaded with Dilantin 1 gm this am - Maintenance Dilantin 100mg iv Q8h - Dilantin level next am - SCD prophylaxis. - GI prophylaxis. - Correction of hypernatremia. Diagnosis/Plan: Subjective Subjective Comments Patient is awake, alert, non-verbal EEG was abnormal with b/l sharp waves There was a concern for complex partial seizures, given witnessed eye flutter Loaded with Dilantin 1 gm this am Maintenance dose of Dilantin, and Dilantin level tomorrow am Active Medications Current Medications Medications (Trade) Dose Ordered Sig/Sharmila Route Start Time Stop Time Status Last Admin (NS Flush) 2 ml UNSCH PRN FLUSH 06/17/16 23:30 06/25/16 05:40 (NS Flush) 2 ml BID FLUSH 06/18/16 09:00 06/30/16 09:42 (Tylenol) 650 mg Q4H PRN PO 06/17/16 23:30 (Zofran Inj) 4 mg Q6H PRN IVP 06/17/16 23:30 (Dulcolax Supp) 10 mg DAILY PRN MI 06/17/16 23:30 (Senokot) 17.2 mg Q12H PRN PO 06/17/16 23:30 (Heparin Inj) 5,000 units Q12H SQ 06/17/16 23:30 07/01/16 13:07 (Narcan Inj) 0.4 mg UNSCH PRN IV 06/17/16 23:30 (Plavix) 75 mg DAILY PO 06/18/16 09:00 07/01/16 08:59 (Pravachol) 20 mg DAILY PO 06/18/16 09:00 07/01/16 08:59 Chlorhexidine Gluconate 15 ml 15 ml BID@08,20 MT 06/18/16 08:00 07/01/16 09:02 (Diprivan 1000 Mg/100ml Inj) 100 ml @ 0 mls/hr TITRATE IV 06/18/16 01:15 06/21/16 00:51 (Colace Liq) 100 mg Q12HR PO 06/18/16 09:00 07/01/16 08:59 Miscellaneous Information Patient in critical care unit? Ass... Q361D XX 06/18/16 06:30 06/18/16 06:30 (Lactulose Liq) 30 ml BID PO 06/18/16 09:15 07/01/16 08:59 (Keppra Liq) 1,000 mg Q12HR TUBE 06/18/16 21:00 07/01/16 08:59 (Xifaxan) 550 mg BID PO 06/19/16 12:45 07/01/16 08:59 (Tapazole) 5 mg Q8HR PO 06/22/16 22:00 07/01/16 13:08 Water 200 ml 200 ml Q6HR OG 06/23/16 12:00 07/01/16 17:01 (KCl Inj/D5W 1000 ml Inj) 1,020 ml @ 50 mls/hr [id number] IV 06/29/16 09:45 07/01/16 13:08 (Vasotec Inj) 1.25 mg Q4H PRN IV PUSH 06/28/16 18:00 06/28/16 18:36 (Prevacid Odt) 30 mg DAILY PEG 06/29/16 09:00 07/01/16 08:59 (Inderal) 20 mg Q8HR PO 06/30/16 22:00 07/01/16 13:08 (Dilantin Inj) 100 mg Q8HR IV 07/01/16 16:00 07/01/16 16:51 Hydrocortisone Sodium Succinate 50 mg 50 mg Q8HR IV PUSH 07/01/16 14:00 07/01/16 13:09 (Potassium Phosphate Inj/NS Inj) 155 ml @ 38.75 mls/ hr ONCE ONCE IV 07/01/16 15:00 07/01/16 18:59 07/01/16 16:51 Allergies Allergies Coded Allergies Aspirin (Verified Allergy, Severe, 06/17/16) *MDRO Multi-Drug Resistant Organism (Verified Adverse Reaction, Unknown, Cleared 05/2016, 06/26/16) Exam I&O / VS 06/30/16 06/30/16 07/01/16 15:00 23:00 07:00 Output Total 750 ml 200 ml 550 ml Balance -750 ml -200 ml -550 ml Output Urine Total 750 ml 200 ml 300 ml Stool Total 250 ml # Bowel Movements 0 Vital Signs Date Time Temp Pulse Resp B/P Pulse Ox O2 Delivery O2 Flow Rate FiO2 07/01/16 16:00 98.1 78 16 118/68 98 07/01/16 12:00 98.1 74 16 103/54 100 07/01/16 08:00 98.1 78 20 128/66 99 07/01/16 05:17 98.0 77 19 121/62 98 07/01/16 00:07 98.3 74 17 124/64 98 06/30/16 21:11 98.6 94 19 143/85 95 Exam Comments GENERAL: The patient is awake, alert, minimally-verbal, breathing on room air HEENT: Atraumatic, normocephalic. Pupils are 2-3 mm, bilaterally equal to light , intact hearing and vision CARDIOVASCULAR: Regular rhythm and rate. No murmurs. RESPIRATORY:Bilaterally equal breath sounds. No wheezes. MUSCULOSKELETAL: No cyanosis or edema. Bilateral foot drop with flexion contractures. NEUROLOGICAL: Awake, alert, non-verbal tracks objects, minimally verbal, answers questions by nodding or softly speaking the words, name [[place]], finger count [ one, two, these were correct answers], shakes hand using the left hand when asked to; dustin Pange as a reply, Pupils are 2-3 mm bilaterally reacting briskly to light. mild right sided gaze deviation. mild right facial palsy[ chronic], moves left UE, and left LE, unable to accurately assess muscle strength, sensory and cerebellar functions due to condition of the patient, no abnormal movements, convulsions or twitches were noted, b/l foot drop with flexion contracture, left greater than the right. Plantars are bilaterally downgoing. Objective Micro and Labs Laboratory Tests Test 07/01/16 07:45 White Blood Count 15.6 Red Blood Count 3.90 Hemoglobin 10.3 Hematocrit 32.8 Mean Corpuscular Volume 84.1 Mean Corpuscular Hemoglobin 26.5 Mean Corpuscular Hemoglobin 31.5 Concent Red Cell Distribution Width 15.9 Platelet Count 96 Mean Platelet Volume 10.5 Neutrophils (%) (Auto) 90.3 Lymphocytes (%) (Auto) 6.0 Monocytes (%) (Auto) 3.6 Eosinophils (%) (Auto) 0.0 Basophils (%) (Auto) 0.1 Neutrophils # (Auto) 14.0 Lymphocytes # (Auto) 0.9 Monocytes # (Auto) 0.6 Eosinophils # (Auto) 0.0 Basophils # (Auto) 0.0 CBC Comment AUTO DIFF Differential Comment AUTO DIFF CONFIRMED Platelet Estimate LOW Platelet Morphology Comment ENLARGED Sodium Level 148 Potassium Level 3.9 Chloride Level 116 Carbon Dioxide Level 21.8 Anion Gap 10 Blood Urea Nitrogen 29 Creatinine 1.42 Estimat Glomerular Filtration 45 Rate Random Glucose 168 Calcium Level 7.7 Phosphorus Level 1.6 Jimena Griffith MD Jul 01, 2016 18:55
[2016-07-01] MEDS ORDERED: POTASSIUM PHOSPHATE INJ 30 MMOL in SODIUM CHLOR 0.9% 250 ML INJ 250 ML IV ONE (19:15)
[2016-07-01 20:53] VITALS: BP 117/56; PULSE 83; RESP 20; TEMP 99.4; O2SAT 99
[2016-07-02 01:16] VITALS: BP 109/62; PULSE 64; RESP 20; TEMP 98.7; O2SAT 98
[2016-07-02 05:26] VITALS: BP 135/67; PULSE 65; RESP 20; TEMP 97.4; O2SAT 97
[2016-07-02] MEDS: FREE WATER OG SCH ×3 (06:00→20:00)
--- NOTE | 2016-07-02 06:21 | MG ---
cc: CHELO RITTER M.D. Lab No: Date: 07/01/2016 Age: 70 Sex: F Race: REQUESTING PHYSICIAN MD Maximus An EEG was obtained on this is 70-year-old patient with history of being evaluated for seizures. Multiple medications. This EEG is showing a lot of artifact but there is underlying mixture of rhythms including beta activity, some theta and alpha rhythms. She appears to be awake and perhaps some sleep. Intermittent slowing is seen bilaterally, possibly left more than right with associated sharp discharges. Some predominantly posterior sharp discharge towards the end of the study equivocally and artifact and this is seen more on the left than right. Photic stimulation showed no changes. INTERPRETATION Abnormal EEG because of bihemispheric slowing intermittently with some sharp discharge of possible epileptiform but not a very definitive finding as there is excessive artifact in this recording. The findings could be related to bilateral abnormalities. The findings could be related to bilateral structural abnormalities and less likely related to some metabolic dysfunction. No ictal abnormality. Chelo Ritter MD [facility] /8:20 PM /6:17 AM
[2016-07-02] MEDS: PHENYTOIN INJ 100 MG/2 ML VIAL IV SCH ×3 (06:46→22:16)
[2016-07-02] MEDS: PROPRANOLOL HCL 20 MG TAB PO SCH ×3 (06:47→22:17)
[2016-07-02] MEDS: METHIMAZOLE 5 MG TAB PO SCH ×3 (06:47→22:19)
[2016-07-02] MEDS: SODIUM CHLORIDE 0.9% FLUSH 5 ML FLUSH FLUSH PRN (06:48)
[2016-07-02] MEDS: RESP: ALBUTEROL 2.5 MG/IPRATROPIUM 0.5 MG NEB (SCH) NEB ×5 (07:48→19:53)
[2016-07-02 08:00] VITALS: BP 108/64; PULSE 64; RESP 20; TEMP 97.1; O2SAT 99
[2016-07-02] MEDS: CHLORHEXIDINE 0.12% (ORAL KIT) 15 ML CUP MT SCH ×2 (08:00→20:00)
[2016-07-02] MEDS: DOCUSATE SODIUM 100 MG/10 ML UDC PO SCH ×2 (08:42→21:00)
[2016-07-02] MEDS: LACTULOSE SYRUP 20 GM/30 ML CUP PO SCH (08:42)
[2016-07-02] MEDS: levETIRAcetam 500 MG/5 ML UDC TUBE SCH ×2 (08:42→22:15)
[2016-07-02] MEDS: RIFAXIMIN 550 MG TAB PO SCH ×2 (08:43→22:18)
[2016-07-02] MEDS: CLOPIDOGREL 75 MG TAB PO SCH (08:43)
[2016-07-02] MEDS: PRAVASTATIN SOD 20 MG TAB PO SCH (08:43)
[2016-07-02] MEDS: LANSOPRAZOLE SOLUTAB 30 MG TAB PEG SCH (08:43)
[2016-07-02] MEDS: SODIUM CHLORIDE 0.9% FLUSH 5 ML FLUSH FLUSH SCH ×2 (09:00→22:17)
[2016-07-02] MEDS: HYDROCORTISONE SOD SUCCINATE 100 MG VIAL IV PUSH SCH ×3 (09:36→22:17)
[2016-07-02 10:20] LABS: HEMATOCRIT 31.8 % (35.0-46.0); MEAN CELL VOLUME 82.6 FL (80.0-100.0); MEAN CORPUSCULAR HGB CONC 32.7 % (32.0-36.0); PLATELET COUNT 98 TH/MM3 (150-450); RED BLOOD COUNT 3.86 MIL/MM3 (4.00-5.30); RED CELL DISTRIBUTION WIDTH 16.4 % (11.6-17.2); WHITE BLOOD COUNT 13.8 TH/MM3 (4.0-11.0)
[2016-07-02 10:30] LABS: REVIEW FLAG FINAL
[2016-07-02 10:45] LABS: BICARBONATE 21.6 MEQ/L (21.0-32.0); POTASSIUM 3.9 MEQ/L (3.5-5.1)
[2016-07-02 11:15] VITALS: BP 128/67; PULSE 66; RESP 16; TEMP 97.4; O2SAT 99
[2016-07-02] MEDS: HEPARIN SODIUM - SQ 10,000 UNITS/ML VIAL SQ SCH (11:41)
[2016-07-02] MEDS: POTASSIUM CHLORIDE INJ 40 MEQ in DEXTROSE 5% IN WATE 1000ML INJ 1,000 ML IV SCH ×2 (11:42)
[2016-07-02 16:00] VITALS: BP 106/56; PULSE 60; RESP 18; TEMP 97.1; O2SAT 99
--- NOTE | 2016-07-02 17:02 | HHI.PR ---
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 four hourly. - Plavix 75 mg daily. - Keppra 1gm Q12h. - Keppra level is pending - Dilantin 100mg iv Q8h - Dilantin level next am - SCD prophylaxis. - GI prophylaxis. Diagnosis/Plan: Subjective Subjective Comments No acute events reported No reported seizures Dilantin level is low at 7.4. Stable neurologic status Active Medications Current Medications Medications (Trade) Dose Ordered Sig/Sharmila Route Start Time Stop Time Status Last Admin (NS Flush) 2 ml UNSCH PRN FLUSH 06/17/16 23:30 07/02/16 06:48 (NS Flush) 2 ml BID FLUSH 06/18/16 09:00 07/01/16 22:49 (Tylenol) 650 mg Q4H PRN PO 06/17/16 23:30 (Zofran Inj) 4 mg Q6H PRN IVP 06/17/16 23:30 (Dulcolax Supp) 10 mg DAILY PRN [place] 06/17/16 23:30 (Senokot) 17.2 mg Q12H PRN PO 06/17/16 23:30 (Heparin Inj) 5,000 units Q12H SQ 06/17/16 23:30 07/02/16 11:41 (Narcan Inj) 0.4 mg UNSCH PRN IV 06/17/16 23:30 (Plavix) 75 mg DAILY PO 06/18/16 09:00 07/02/16 08:43 (Pravachol) 20 mg DAILY PO 06/18/16 09:00 07/02/16 08:43 Chlorhexidine Gluconate 15 ml 15 ml BID@08,20 MT 06/18/16 08:00 07/01/16 09:02 (Diprivan 1000 Mg/100ml Inj) 100 ml @ 0 mls/hr TITRATE IV 06/18/16 01:15 06/21/16 00:51 (Colace Liq) 100 mg Q12HR PO 06/18/16 09:00 07/02/16 08:42 Miscellaneous Information Patient in critical care unit? Ass... Q361D XX 06/18/16 06:30 06/18/16 06:30 (Lactulose Liq) 30 ml BID PO 06/18/16 09:15 07/02/16 08:42 (Keppra Liq) 1,000 mg Q12HR TUBE 06/18/16 21:00 07/02/16 08:42 (Xifaxan) 550 mg BID PO 06/19/16 12:45 07/02/16 08:43 (Tapazole) 5 mg Q8HR PO 06/22/16 22:00 07/02/16 06:47 Water 200 ml 200 ml Q6HR OG 06/23/16 12:00 07/02/16 11:58 (KCl Inj/D5W 1000 ml Inj) 1,020 ml @ 50 mls/hr [id number] IV 06/29/16 09:45 07/02/16 11:42 (Vasotec Inj) 1.25 mg Q4H PRN IV PUSH 06/28/16 18:00 06/28/16 18:36 (Prevacid Odt) 30 mg DAILY PEG 06/29/16 09:00 07/02/16 08:43 (Inderal) 20 mg Q8HR PO 06/30/16 22:00 07/02/16 06:47 (Dilantin Inj) 100 mg Q8HR IV 07/01/16 16:00 07/02/16 06:46 (SoluCORTEF INJ) 50 mg Q8HR IV PUSH 07/01/16 14:00 07/02/16 09:36 Allergies Allergies Coded Allergies Aspirin (Verified Allergy, Severe, 06/17/16) *MDRO Multi-Drug Resistant Organism (Verified Adverse Reaction, Unknown, Cleared 05/2016, 06/26/16) Exam I&O / VS 07/01/16 07/01/16 07/02/16 15:00 23:00 07:00 Intake Total 400 ml 2998 ml Output Total 300 ml 200 ml 1000 ml Balance -300 ml 200 ml 1998 ml IV Total 1913 ml Tube Feeding 825 ml Other 400 ml 260 ml Output Urine Total 300 ml 200 ml Stool Total 1000 ml # Voids 1 # Bowel Movements 1 Vital Signs Date Time Temp Pulse Resp B/P Pulse Ox O2 Delivery O2 Flow Rate FiO2 07/02/16 16:00 97.1 60 18 106/56 99 07/02/16 11:15 97.4 66 16 128/67 99 07/02/16 08:00 97.1 64 20 108/64 99 07/02/16 05:26 97.4 65 20 135/67 97 07/02/16 01:16 98.7 64 20 109/62 98 07/01/16 20:53 99.4 83 20 117/56 99 Exam Comments GENERAL: The patient is awake, alert, minimally-verbal, breathing on room air HEENT: Atraumatic, normocephalic. Pupils are 2-3 mm, bilaterally equal to light , intact hearing and vision CARDIOVASCULAR: Regular rhythm and rate. No murmurs. RESPIRATORY:Bilaterally equal breath sounds. No wheezes. MUSCULOSKELETAL: No cyanosis or edema. Bilateral foot drop with flexion contractures. NEUROLOGICAL: Awake, alert, minimally-verbal tracks objects, answers questions by nodding or softly speaking the words, name [[place]], finger count [ one, two], shakes hand using the left hand when asked to; waves [place] as a reply, Pupils are 2-3 mm bilaterally reacting briskly to light. mild right sided gaze deviation. mild right facial palsy[chronic], moves left UE, and left LE, unable to accurately assess muscle strength, sensory and cerebellar functions due to condition of the patient, no abnormal movements, convulsions or twitches were noted, b/l foot drop with flexion contracture, left greater than the right. Plantars are bilaterally downgoing. Objective Micro and Labs Laboratory Tests Test 07/02/16 10:00 White Blood Count 13.8 Red Blood Count 3.86 Hemoglobin 10.4 Hematocrit 31.8 Mean Corpuscular Volume 82.6 Mean Corpuscular Hemoglobin 27.0 Mean Corpuscular Hemoglobin 32.7 Concent Red Cell Distribution Width 16.4 Platelet Count 98 Mean Platelet Volume 10.7 Sodium Level 151 Potassium Level 3.9 Chloride Level 119 Carbon Dioxide Level 21.6 Anion Gap 10 Blood Urea Nitrogen 29 Creatinine 1.36 Estimat Glomerular Filtration 47 Rate Random Glucose 158 Calcium Level 7.7 Ammonia 31 Phenytoin (Dilantin) Level 7.4 Jimena Griffith MD Jul 02, 2016 17:02
--- NOTE | 2016-07-02 18:26 | HHI.PR ---
Subjective Subjective Remarks non verbal following commands with left hand tracking with her eyes audible ronchi on tube feedings no fever no acute changes overnight no seizures reported Review of Systems Constitutional Constitutional Remarks unable to do ROS Vitals/Results Intake & Output 07/01/16 07/01/16 07/02/16 15:00 23:00 07:00 Intake Total 400 ml 2998 ml Output Total 300 ml 200 ml 1000 ml Balance -300 ml 200 ml 1998 ml IV Total 1913 ml Tube Feeding 825 ml Other 400 ml 260 ml Output Urine Total 300 ml 200 ml Stool Total 1000 ml # Voids 1 # Bowel Movements 1 Vital Signs Vital Signs Date Time Temp Pulse Resp B/P Pulse Ox O2 Delivery O2 Flow Rate FiO2 07/02/16 16:00 97.1 60 18 106/56 99 07/02/16 11:15 97.4 66 16 128/67 99 07/02/16 08:00 97.1 64 20 108/64 99 07/02/16 05:26 97.4 65 20 135/67 97 07/02/16 01:16 98.7 64 20 109/62 98 07/01/16 20:53 99.4 83 20 117/56 99 CBC/BMP: 07/02/16 1000 07/02/16 1000 Lab Results Laboratory Tests Test 07/02/16 10:00 White Blood Count 13.8 TH/MM3 Red Blood Count 3.86 MIL/MM3 Hemoglobin 10.4 GM/DL Hematocrit 31.8 % Mean Corpuscular Volume 82.6 FL Mean Corpuscular Hemoglobin 27.0 PG Mean Corpuscular Hemoglobin 32.7 % Concent Red Cell Distribution Width 16.4 % Platelet Count 98 TH/MM3 Mean Platelet Volume 10.7 FL Sodium Level 151 MEQ/L Potassium Level 3.9 MEQ/L Chloride Level 119 MEQ/L Carbon Dioxide Level 21.6 MEQ/L Anion Gap 10 MEQ/L Blood Urea Nitrogen 29 MG/DL Creatinine 1.36 MG/DL Estimat Glomerular Filtration 47 ML/MIN Rate Random Glucose 158 MG/DL Calcium Level 7.7 MG/DL Ammonia 31 MCMOL/L Phenytoin (Dilantin) Level 7.4 MCG/ML Physical Exam General General Appearance: No Acute Distress, Comfortable Eyes Eye Exam: Pupils Equal, Pupils Reactive Ears & Nose Ears & Nose Exam: Nasal Mucosa [place] Neck Neck Exam: Neck Supple Pulmonary Resp Exam: No Distress, Rhonchi, Diminished Breath Sounds Cardiology CV Exam: Regular Gastrointestinal/Abdomen GI Exam: Soft, Non-Tender, Bowel Sounds Present GI Remarks PEG tube with feedings, no bleeding, no exudate from insertion site Genitourinary Exam: Clear Urine Remarks KITCHEN Musculoskeletal MS Exam: Atrophy Integumentary Skin Exam: Clear, Warm, Dry Extremeties Extremities Exam: No Edema, Pedal Pulses Palpable Neurologic Neuro Exam: Awake Neuro Remarks right sided hemiplegia VTE Prophylaxis VTE Prophylaxis Device: SCDs VTE Prophylaxis Meds: Heparin PUD Prophylasis PUD Remarks Prevacid Assessment/Plan Assessment/Plan Assessment Electrolyte imbalance Respiratory failure earlier this admission, extubated to 06/23/16 Left base parenchymal opacity, question pneumonia Unable to swallow , status post PEG tube placement 06/28/16 metabolic encephalopathy Hx stroke Seizure disorder, recurrent Dementia disorder NOS Schizoaffective disorder Acute respiratory failure History of hypertension Dyslipidemia Chronic diastolic heart failure ejection fraction 55% h/o Liver cirrhosis hyper ammonemia KARTHIK/CKD hypernatremia Streptococcus viridans UTI Possible thyroiditis History of left MCA stroke with right hemiparesis History of intracranial aneurysm and bleed Management Continue with 5% dextrose intravenously with potassium chloride Monitor BPM Na improving, 151 Continue with tube feeding Appreciate GI input Seizure precautions on Keppra and Dilantin reconsulted neurology for recurrent seizures, input appreciated, meds adjusted repeat EEG-abnormal EEG/b/l sharp waves Dilantin level 7.4 TSI 194 US thyroid -complex cystic left thyroid mass measuring 4.6 cm Stop antibiotics no fever received 14 days kitchen has been removed ammonia 31 Mar. Lactulose to daily, continue Rifaximin Liquid stool Thrombocytopenia, plat. 98 monitor for bleeding Continue to wean down Hydrocortisone Heparin for DVT prophylaxis PPI for GI prophylaxis CM dc planning 1-2 days D/W RN D/W Dr. Valdivia This patient was seen by myself and Dr. Valdivia, this note is written on his behalf. Yessy Nicole Jul 02, 2016 18:26
[2016-07-02 20:00] VITALS: BP 128/67; PULSE 65; RESP 18; TEMP 97.4; O2SAT 99
[2016-07-03 00:10] VITALS: BP 138/73; PULSE 68; RESP 18; TEMP 97.8; O2SAT 96
[2016-07-03] MEDS: HEPARIN SODIUM - SQ 10,000 UNITS/ML VIAL SQ SCH ×2 (00:46→12:04)
[2016-07-03] MEDS: FREE WATER OG SCH ×6 (04:00→20:00)
[2016-07-03 04:11] VITALS: BP 116/66; PULSE 69; RESP 18; TEMP 97.8; O2SAT 98
[2016-07-03] MEDS: METHIMAZOLE 5 MG TAB PO SCH ×2 (06:00→14:31)
[2016-07-03] MEDS: PHENYTOIN INJ 100 MG/2 ML VIAL IV SCH ×2 (06:00→14:30)
[2016-07-03] MEDS: PROPRANOLOL HCL 20 MG TAB PO SCH ×2 (06:01→14:31)
[2016-07-03] MEDS: POTASSIUM CHLORIDE INJ 40 MEQ in DEXTROSE 5% IN WATE 1000ML INJ 1,000 ML IV SCH ×2 (06:12)
[2016-07-03] MEDS: SODIUM CHLORIDE 0.9% FLUSH 5 ML FLUSH FLUSH PRN (06:12)
[2016-07-03 07:42] VITALS: BP 135/66; PULSE 60; RESP 22; TEMP 95.8; O2SAT 98
[2016-07-03] MEDS: CHLORHEXIDINE 0.12% (ORAL KIT) 15 ML CUP MT SCH ×2 (08:00→20:00)
[2016-07-03] MEDS: RIFAXIMIN 550 MG TAB PO SCH (08:45)
[2016-07-03] MEDS: PRAVASTATIN SOD 20 MG TAB PO SCH (08:46)
[2016-07-03] MEDS: CLOPIDOGREL 75 MG TAB PO SCH (08:46)
[2016-07-03] MEDS: LANSOPRAZOLE SOLUTAB 30 MG TAB PEG SCH (08:46)
[2016-07-03] MEDS: DOCUSATE SODIUM 100 MG/10 ML UDC PO SCH (08:47)
[2016-07-03] MEDS: levETIRAcetam 500 MG/5 ML UDC TUBE SCH (08:48)
[2016-07-03] MEDS ORDERED: LACTULOSE SYRUP 20 GM/30 ML CUP PO SCH (09:00)
[2016-07-03] MEDS: RESP: ALBUTEROL 2.5 MG/IPRATROPIUM 0.5 MG NEB (SCH) NEB ×5 (09:05→20:00)
[2016-07-03] MEDS: SODIUM CHLORIDE 0.9% FLUSH 5 ML FLUSH FLUSH SCH ×2 (09:08→21:00)
[2016-07-03] MEDS: HYDROCORTISONE SOD SUCCINATE 100 MG VIAL IV PUSH SCH (09:11)
[2016-07-03 12:08] VITALS: BP 116/69; PULSE 66; RESP 20; TEMP 96.9; O2SAT 99
--- NOTE | 2016-07-03 14:00 | HHI.PR ---
Subjective Subjective Remarks non verbal following commands with left hand tracking with her eyes breath sounds improved, refused duonebs on tube feedings no fever no acute changes overnight no seizures reported liquid stools via flexiseal Review of Systems Constitutional Constitutional Remarks unable to do ROS Vitals/Results Intake & Output 07/02/16 07/02/16 07/03/16 15:00 23:00 07:00 Intake Total 1502 ml 1146 ml Balance 1502 ml 1146 ml IV Total 658 ml 390 ml Tube Feeding 584 ml 296 ml Other 260 ml 460 ml # Voids 3 1 2 Vital Signs Vital Signs Date Time Temp Pulse Resp B/P Pulse Ox O2 Delivery O2 Flow Rate FiO2 07/03/16 12:08 96.9 66 20 116/69 99 07/03/16 07:42 95.8 60 22 135/66 98 07/03/16 04:11 97.8 69 18 116/66 98 07/03/16 00:10 97.8 68 18 138/73 96 07/02/16 20:00 97.4 65 18 128/67 99 07/02/16 16:00 97.1 60 18 106/56 99 CBC/BMP: 07/02/16 1000 07/02/16 1000 Lab Results Laboratory Tests Test 07/03/16 09:47 Phenytoin (Dilantin) Level 8.1 MCG/ML Physical Exam General General Appearance: No Acute Distress, Comfortable Eyes Eye Exam: Pupils Equal, Pupils Reactive Ears & Nose Ears & Nose Exam: Nasal Mucosa [place] Neck Neck Exam: Neck Supple Pulmonary Resp Exam: No Distress, Rhonchi, Diminished Breath Sounds Cardiology CV Exam: Regular Gastrointestinal/Abdomen GI Exam: Soft, Non-Tender, Bowel Sounds Present GI Remarks PEG tube with feedings, no bleeding, no exudate from insertion site Genitourinary Exam: Clear Urine Remarks KITCHEN Musculoskeletal MS Exam: Atrophy Integumentary Skin Exam: Clear, Warm, Dry Extremeties Extremities Exam: No Edema, Pedal Pulses Palpable Neurologic Neuro Exam: Awake Neuro Remarks right sided hemiplegia VTE Prophylaxis VTE Prophylaxis Device: SCDs VTE Prophylaxis Meds: Heparin PUD Prophylasis PUD Remarks Prevacid Assessment/Plan Assessment/Plan Assessment Electrolyte imbalance Respiratory failure earlier this admission, extubated to 06/23/16 Left base parenchymal opacity, question pneumonia Unable to swallow , status post PEG tube placement 06/28/16 metabolic encephalopathy Hx stroke Seizure disorder, recurrent Dementia disorder NOS Schizoaffective disorder Acute respiratory failure History of hypertension Dyslipidemia Chronic diastolic heart failure ejection fraction 55% h/o Liver cirrhosis hyper ammonemia KARTHIK/CKD hypernatremia Streptococcus viridans UTI Possible thyroiditis History of left MCA stroke with right hemiparesis History of intracranial aneurysm and bleed Management Continue with 5% dextrose intravenously with potassium chloride Monitor BPM Na improving, 151 Continue with tube feeding Appreciate GI input Seizure precautions on Keppra and Dilantin reconsulted neurology for recurrent seizures, input appreciated, meds adjusted repeat EEG-abnormal EEG/b/l sharp waves Dilantin level 8.1 repeat Dilantin level in am TSI 194 US thyroid -complex cystic left thyroid mass measuring 4.6 cm Stop antibiotics no fever received 14 days kitchen has been removed ammonia Mar. Lactulose to daily, DC Rifaximin Liquid stool Thrombocytopenia, plat. 98 monitor for bleeding Continue to wean down Hydrocortisone Heparin for DVT prophylaxis PPI for GI prophylaxis CM dc planning 1-2 days D/W RN D/W Dr. Valdivia This patient was seen by myself and Dr. Valdivia, this note is written on his behalf. Yessy Nicole Jul 03, 2016 14:00
[2016-07-03 16:04] VITALS: BP 120/62; PULSE 58; RESP 20; TEMP 96.8; O2SAT 99
[2016-07-03 20:00] VITALS: BP 146/80; PULSE 78; RESP 22; TEMP 97.2; O2SAT 96
[2016-07-04] VITALS (7 sets, daily range): BP systolic 122–146; BP diastolic 62–76; PULSE 68–74; RESP 20; TEMP 96.3–99.1; O2SAT 96–98
[2016-07-04] MEDS: DOCUSATE SODIUM 100 MG/10 ML UDC PO SCH ×3 (00:30→22:21)
[2016-07-04] MEDS: PHENYTOIN INJ 100 MG/2 ML VIAL IV SCH ×4 (00:31→22:23)
[2016-07-04] MEDS: METHIMAZOLE 5 MG TAB PO SCH ×4 (00:32→22:23)
[2016-07-04] MEDS: PROPRANOLOL HCL 20 MG TAB PO SCH ×4 (00:32→22:23)
[2016-07-04] MEDS: levETIRAcetam 500 MG/5 ML UDC TUBE SCH ×3 (00:32→22:21)
[2016-07-04] MEDS: HEPARIN SODIUM - SQ 10,000 UNITS/ML VIAL SQ SCH ×3 (00:33→22:23)
[2016-07-04] MEDS: FREE WATER OG SCH ×7 (04:00→23:51)
[2016-07-04] MEDS: POTASSIUM CHLORIDE INJ 40 MEQ in DEXTROSE 5% IN WATE 1000ML INJ 1,000 ML IV SCH ×4 (05:58→22:24)
[2016-07-04] MEDS: RESP: ALBUTEROL 2.5 MG/IPRATROPIUM 0.5 MG NEB (SCH) NEB ×5 (07:45→19:48)
[2016-07-04] MEDS: CHLORHEXIDINE 0.12% (ORAL KIT) 15 ML CUP MT SCH ×2 (08:00→20:00)
[2016-07-04] MEDS: SODIUM CHLORIDE 0.9% FLUSH 5 ML FLUSH FLUSH SCH ×2 (08:35→21:00)
[2016-07-04] MEDS: LANSOPRAZOLE SOLUTAB 30 MG TAB PEG SCH (08:36)
[2016-07-04] MEDS: PRAVASTATIN SOD 20 MG TAB PO SCH (08:37)
[2016-07-04] MEDS: CLOPIDOGREL 75 MG TAB PO SCH (08:37)
[2016-07-04] MEDS ORDERED: HYDROCORTISONE SOD SUCCINATE 100 MG VIAL IV PUSH SCH (09:00)
--- NOTE | 2016-07-04 14:01 | HHI.PR ---
Subjective Subjective Remarks Some garbled speech Alert Follows with eyes/expression Right-sided weakness Rhonchi Review of Systems Constitutional Constitutional: Weakness (generalized, no CVA) Constitutional Remarks 10 point ROS done positives noted Pulmonary Respiratory: Coughing (occasional) Pulmonary Remarks Rhonchi GI/Abdomen GI/Abdomen Remarks Nothing by mouth PEG tube feedings Musculoskeletal MS: Weakness, Stiffness (right upper extremity flaccid, chronic) Psychiatric Psychiatric Remarks Opens eyes and responds to verbal stimuli Vitals/Results Intake & Output 07/03/16 07/03/16 07/04/16 15:00 23:00 07:00 Intake Total 1131 ml Balance 1131 ml IV Total 500 ml Tube Feeding 631 ml # Voids 2 2 3 # Bowel Movements 0 0 Vital Signs Vital Signs Date Time Temp Pulse Resp B/P Pulse Ox O2 Delivery O2 Flow Rate FiO2 07/04/16 12:22 96.3 74 20 122/62 97 07/04/16 07:41 96.6 68 20 140/69 96 07/04/16 04:00 98.3 68 20 122/76 98 07/04/16 00:00 97.4 68 20 124/70 97 07/03/16 20:00 97.2 78 22 146/80 96 07/03/16 16:04 96.8 58 20 120/62 99 CBC/BMP: 07/02/16 1000 07/02/16 1000 Imaging Remarks Last Impressions Chest X-Ray 06/27/16 0000 Signed Impressions: Service Date/Time: June 23:27 - CONCLUSION: Mild left base parenchymal opacity Kye Gonzalez MD Thyroid Ultrasound 06/22/16 0000 Signed Impressions: Service Date/Time: Wednesday, June 22, 2016 21:59 - CONCLUSION: Complex cystic left thyroid mass measuring 4.6 cm. Everton Archuleta MD Renal Ultrasound 06/18/16 0343 Signed Impressions: Service Date/Time: Saturday, June 18, 2016 08:15 - CONCLUSION: 1. Increased echogenicity which can be seen with medical renal disease. Right kidney is slightly small in size. 2. Urinary bladder is decompressed by Rosales catheter. Gideon De La Fuente MD Brain MRI 06/18/16 0102 Signed Impressions: Service Date/Time: Saturday, June 18, 2016 02:28 - CONCLUSION: 1. Widespread encephalomalacia throughout the left cerebral hemisphere. An area of acute infarction is not clearly seen. There is very prominent expansion of the left lateral ventricle. 2. Suspected underlying small vessel ischemic change in the white matter on the right hemisphere. 3. Areas of signal abnormality on the SWI images related to prior areas of hemorrhage. No acute hemorrhage is seen. Kye Montiel MD Head Magnetic Resonance Angiography 06/18/16 0000 Signed Impressions: Service Date/Time: Saturday, June 18, 2016 02:28 - CONCLUSION: No acute areas of occlusion. There is asymmetric and diminished flow in the more distal left middle cerebral artery territory. Kye Montiel MD Carotid Artery Ultrasound 06/18/16 0000 Signed Impressions: Service Date/Time: Saturday, June 18, 2016 07:56 - CONCLUSION: 1. Severe plaque in the right proximal right internal carotid artery but no hemodynamically significant stenosis identified. May consider a carotid CTA to ensure no significant stenosis. 2. No significant stenosis in the left carotid artery. Gideon De La Fuente MD Head CT 06/17/16 0000 Signed Impressions: Service Date/Time: Friday, June 17, 2016 20:15 - CONCLUSION: No acute intracranial abnormality. Old left middle cerebral artery distribution infarct. Kye Young MD Physical Exam General General Appearance: No Acute Distress, Comfortable Eyes Eye Exam: Pupils Equal, Pupils Reactive (sluggish) Ears & Nose Ears & Nose Exam: Nasal Mucosa [place] (pink pale) Throat Throat Exam: Oral Mucosa [place] & Moist (pale) Neck Neck Exam: Neck Supple Pulmonary Resp Exam: No Distress, Rhonchi, Decreased Bases, Diminished Breath Sounds, Poor Inspiratory Effort Cardiology CV Exam: Regular Gastrointestinal/Abdomen GI Exam: Soft, Non-Tender, Bowel Sounds Present GI Remarks PEG tube intact Genitourinary Exam: Clear Urine Musculoskeletal MS Exam: Atrophy Integumentary Skin Exam: Clear, Warm, Dry Extremeties Extremities Exam: No Edema, Pedal Pulses Palpable Neurologic Neuro Exam: Alert, Awake VTE Prophylaxis VTE Prophylaxis Device: SCDs VTE Prophylaxis Meds: Heparin Assessment/Plan Assessment/Plan History of intracranial aneurysm and bleed, history of CVA, no acute findings Gentle hydration with monitoring of sodium Continue with 5% dextrose intravenously with potassium chloride Continue with tube feeding Appreciate GI input, patient nothing by mouth with acutechronic aspiration. Seizure precautions on Keppra and Dilantin neurology , reconsult with medicines adjusted Continue weaning IV steroids, decreased to 25 mg IV daily Leukocytosis probable secondary to steroids. Will monitor US thyroid -complex cystic left thyroid mass, monitor for now Anemia chronic disease, stable hemoglobin at 10.4, Heparin for DVT prophylaxis PPI for GI prophylaxis CM dc planning 1-2 days, if no further acute changes or seizures noted. D/W Dr. Valdivia, patient seen on his behalf Eugenia Cortez Jul 04, 2016 14:01
[2016-07-05] VITALS (7 sets, daily range): BP systolic 65–146; BP diastolic 66–73; PULSE 71–79; RESP 18–20; TEMP 96.5–99.1; O2SAT 96–99
[2016-07-05] MEDS: FREE WATER OG SCH ×5 (04:00→20:00)
[2016-07-05] MEDS: PROPRANOLOL HCL 20 MG TAB PO SCH ×3 (06:40→23:11)
[2016-07-05] MEDS: PHENYTOIN INJ 100 MG/2 ML VIAL IV SCH ×3 (06:40→23:12)
[2016-07-05] MEDS: METHIMAZOLE 5 MG TAB PO SCH ×3 (06:40→23:11)
[2016-07-05] MEDS: CHLORHEXIDINE 0.12% (ORAL KIT) 15 ML CUP MT SCH ×2 (08:00→20:00)
[2016-07-05] MEDS ORDERED: HYDROCORTISONE SOD SUCCINATE 100 MG VIAL IV PUSH SCH (09:00)
[2016-07-05 09:13] LABS: HEMATOCRIT 35.1 % (35.0-46.0); MEAN CELL VOLUME 85.8 FL (80.0-100.0); MEAN CORPUSCULAR HEMOGLOBIN 26.6 PG (27.0-34.0); PLATELET COUNT 96 TH/MM3 (150-450); RED BLOOD COUNT 4.09 MIL/MM3 (4.00-5.30); REVIEW FLAG FINAL; WHITE BLOOD COUNT 12.6 TH/MM3 (4.0-11.0)
[2016-07-05] MEDS: CLOPIDOGREL 75 MG TAB PO SCH (09:49)
[2016-07-05] MEDS: PRAVASTATIN SOD 20 MG TAB PO SCH (09:50)
[2016-07-05] MEDS: LANSOPRAZOLE SOLUTAB 30 MG TAB PEG SCH (09:51)
[2016-07-05] MEDS: DOCUSATE SODIUM 100 MG/10 ML UDC PO SCH ×2 (09:53→23:13)
[2016-07-05] MEDS: levETIRAcetam 500 MG/5 ML UDC TUBE SCH ×2 (09:55→23:13)
[2016-07-05 09:56] LABS: MAGNESIUM 1.7 MG/DL (1.5-2.5); POTASSIUM 4.7 MEQ/L (3.5-5.1)
[2016-07-05] MEDS: SODIUM CHLORIDE 0.9% FLUSH 5 ML FLUSH FLUSH SCH ×2 (10:04→23:13)
[2016-07-05] MEDS: RESP: ALBUTEROL 2.5 MG/IPRATROPIUM 0.5 MG NEB (SCH) NEB ×2 (10:33→12:00)
--- NOTE | 2016-07-05 12:48 | HHI.PR ---
Subjective Subjective Remarks Some garbled speech sleeping, but responding slowly diarrhea Right-sided weakness Rhonchi Review of Systems Constitutional Constitutional: Weakness (generalized, no CVA) Constitutional Remarks 10 point ROS done positives noted Pulmonary Respiratory: Coughing (occasional) Pulmonary Remarks Rhonchi GI/Abdomen GI/Abdominal Exam: Diarrhea GI/Abdomen Remarks Nothing by mouth PEG tube feedings Diarrhea Musculoskeletal MS: Weakness, Stiffness (right upper extremity flaccid, chronic) Psychiatric Psychiatric Remarks Opens eyes and responds to verbal stimuli Vitals/Results Intake & Output 07/04/16 07/04/16 07/05/16 15:00 23:00 07:00 Intake Total 1910 ml Output Total 500 ml 100 ml Balance -500 ml 1910 ml -100 ml IV Total 1910 ml Stool Total 500 ml 100 ml # Voids 3 1 4 # Bowel Movements 0 Vital Signs Vital Signs Date Time Temp Pulse Resp B/P Pulse Ox O2 Delivery O2 Flow Rate FiO2 07/05/16 10:34 96 07/05/16 07:48 96.5 78 18 143/70 99 07/05/16 04:00 97.7 79 20 135/72 97 07/05/16 00:00 97.8 71 20 134/66 98 07/04/16 20:00 98.0 72 20 146/70 97 07/04/16 19:50 98 21 07/04/16 16:23 99.1 70 20 130/63 97 CBC/BMP: 07/05/16 0830 07/05/16 0830 Lab Results Laboratory Tests Test 07/05/16 08:30 White Blood Count 12.6 TH/MM3 Red Blood Count 4.09 MIL/MM3 Hemoglobin 10.9 GM/DL Hematocrit 35.1 % Mean Corpuscular Volume 85.8 FL Mean Corpuscular Hemoglobin 26.6 PG Mean Corpuscular Hemoglobin 31.0 % Concent Red Cell Distribution Width 18.0 % Platelet Count 96 TH/MM3 Mean Platelet Volume 11.4 FL Hematology Comments Sodium Level 138 MEQ/L Potassium Level 4.7 MEQ/L Chloride Level 109 MEQ/L Carbon Dioxide Level 20.0 MEQ/L Anion Gap 9 MEQ/L Blood Urea Nitrogen 26 MG/DL Creatinine 1.11 MG/DL Estimat Glomerular Filtration 59 ML/MIN Rate Random Glucose 131 MG/DL Calcium Level 7.8 MG/DL Phosphorus Level 1.0 MG/DL Magnesium Level 1.7 MG/DL Phenytoin (Dilantin) Level 8.7 MCG/ML Imaging Remarks Last Impressions Chest X-Ray 06/27/16 0000 Signed Impressions: Service Date/Time: June 23:27 - CONCLUSION: Mild left base parenchymal opacity Kye Gonzalez MD Thyroid Ultrasound 06/22/16 0000 Signed Impressions: Service Date/Time: Wednesday, June 22, 2016 21:59 - CONCLUSION: Complex cystic left thyroid mass measuring 4.6 cm. Everton Archuleta MD Renal Ultrasound 06/18/16 0343 Signed Impressions: Service Date/Time: Saturday, June 18, 2016 08:15 - CONCLUSION: 1. Increased echogenicity which can be seen with medical renal disease. Right kidney is slightly small in size. 2. Urinary bladder is decompressed by Kitchen catheter. Gideon De La Fuente MD Brain MRI 06/18/16 0102 Signed Impressions: Service Date/Time: Saturday, June 18, 2016 02:28 - CONCLUSION: 1. Widespread encephalomalacia throughout the left cerebral hemisphere. An area of acute infarction is not clearly seen. There is very prominent expansion of the left lateral ventricle. 2. Suspected underlying small vessel ischemic change in the white matter on the right hemisphere. 3. Areas of signal abnormality on the SWI images related to prior areas of hemorrhage. No acute hemorrhage is seen. Kye Montiel MD Head Magnetic Resonance Angiography 06/18/16 0000 Signed Impressions: Service Date/Time: Saturday, June 18, 2016 02:28 - CONCLUSION: No acute areas of occlusion. There is asymmetric and diminished flow in the more distal left middle cerebral artery territory. Kye Montiel MD Carotid Artery Ultrasound 06/18/16 0000 Signed Impressions: Service Date/Time: Saturday, June 18, 2016 07:56 - CONCLUSION: 1. Severe plaque in the right proximal right internal carotid artery but no hemodynamically significant stenosis identified. May consider a carotid CTA to ensure no significant stenosis. 2. No significant stenosis in the left carotid artery. Gideon De La Fuente MD Head CT 06/17/16 0000 Signed Impressions: Service Date/Time: Friday, June 17, 2016 20:15 - CONCLUSION: No acute intracranial abnormality. Old left middle cerebral artery distribution infarct. Kye Young MD Current Medications Active Medications Hydrocortisone Sodium Succinate (SoluCORTEF INJ) 25 mg DAILY IV PUSH Last administered on 07/05/16t 10:05; Admin Dose 25 MG; Start 07/05/16 at 09:00 Physical Exam General General Appearance: No Acute Distress, Comfortable Eyes Eye Exam: Pupils Equal, Pupils Reactive (sluggish) Ears & Nose Ears & Nose Exam: Nasal Mucosa [place] (pink pale) Throat Throat Exam: Oral Mucosa [place] & Moist (pale) Neck Neck Exam: Neck Supple Pulmonary Resp Exam: No Distress, Rhonchi, Decreased Bases, Diminished Breath Sounds, Poor Inspiratory Effort Cardiology CV Exam: Regular Gastrointestinal/Abdomen GI Exam: Soft, Non-Tender, Bowel Sounds Present GI Remarks PEG tube intact diarrhea Genitourinary Exam: Clear Urine Musculoskeletal MS Exam: Atrophy Integumentary Skin Exam: Clear, Warm, Dry Extremeties Extremities Exam: No Edema, Pedal Pulses Palpable Neurologic Neuro Exam: Alert, Awake VTE Prophylaxis VTE Prophylaxis Device: SCDs VTE Prophylaxis Meds: Heparin Assessment/Plan Assessment/Plan History of intracranial aneurysm and bleed, history of CVA, no acute findings Continue with tube feeding, PEG tube site clean dry and intact Appreciate GI input, patient nothing by mouth with acutechronic aspiration. Diarrhea now watery , brown, uncontrollable. Rectal kitchen in. Skin tear on sacral area. Wound care nurse evaled. Recommendations include keeping dry, and using barrier cream. No dressings needed for now. Education and information given to nurse. Rectal Kitchen changed and reinserted. Large amount of dark brown diarrhea watery stool. We'll check Hemoccult and C. difficile. If no C. difficile may use Imodium every 4 hours as needed for diarrhea. Seizure precautions on Keppra and Dilantin neurology , reconsult with medicines adjusted IV steroids DC'd Leukocytosis probable secondary to steroids. Will monitor, no acute changes, lab reviewed US thyroid -complex cystic left thyroid mass, monitor for now Anemia chronic disease, stable hemoglobin at 10.4, Heparin for DVT prophylaxis PPI for GI prophylaxis CM dc planning 1-2 days, if no further acute changes or seizures noted. Discussed with care nurse D/W Dr. Valdivia, patient seen on his behalf Discussed with wound care nurse Eugenia Cortez Jul 05, 2016 12:48
[2016-07-05] MEDS: HEPARIN SODIUM - SQ 10,000 UNITS/ML VIAL SQ SCH ×2 (13:13→23:12)
[2016-07-05 14:19] LABS: C. DIFF EPI 027 PRESUMPTIVE NEGATIVE (NEGATIVE); C. DIFF TOXIN PCR NEGATIVE (NEGATIVE)
[2016-07-05] MEDS: LOPERAMIDE HCL SOLN 2 MG/10 ML UDC PEG SCH ×2 (18:08→23:12)
[2016-07-05] MEDS: POTASSIUM CHLORIDE INJ 40 MEQ in DEXTROSE 5% IN WATE 1000ML INJ 1,000 ML IV SCH ×2 (19:20)
[2016-07-06 00:18] VITALS: BP 134/80; PULSE 68; RESP 20; TEMP 97.6; O2SAT 97
[2016-07-06] MEDS: FREE WATER OG SCH ×4 (04:00→11:00)
[2016-07-06 04:11] VITALS: BP 128/67; PULSE 82; RESP 18; TEMP 99.3; O2SAT 98
[2016-07-06] MEDS: METHIMAZOLE 5 MG TAB PO SCH (06:28)
[2016-07-06] MEDS: PHENYTOIN INJ 100 MG/2 ML VIAL IV SCH (06:28)
[2016-07-06] MEDS: LOPERAMIDE HCL SOLN 2 MG/10 ML UDC PEG SCH ×4 (06:29→11:00)
[2016-07-06] MEDS: PROPRANOLOL HCL 20 MG TAB PO SCH (06:33)
[2016-07-06 08:00] VITALS: BP 128/87; PULSE 82; RESP 18; TEMP 98.1; O2SAT 97
[2016-07-06] MEDS: CHLORHEXIDINE 0.12% (ORAL KIT) 15 ML CUP MT SCH (08:00)
[2016-07-06] MEDS: DOCUSATE SODIUM 100 MG/10 ML UDC PO SCH (08:58)
[2016-07-06] MEDS: SODIUM CHLORIDE 0.9% FLUSH 5 ML FLUSH FLUSH SCH (08:59)
[2016-07-06] MEDS: LANSOPRAZOLE SOLUTAB 30 MG TAB PEG SCH (08:59)
[2016-07-06] MEDS: CLOPIDOGREL 75 MG TAB PO SCH (08:59)
[2016-07-06] MEDS: levETIRAcetam 500 MG/5 ML UDC TUBE SCH (08:59)
[2016-07-06] MEDS: PRAVASTATIN SOD 20 MG TAB PO SCH (08:59)
--- NOTE | 2016-07-06 09:39 | HHI.PR ---
Subjective Subjective Remarks Some garbled speech sleeping, but responding slowly diarrhea, neg. Cdiff Right-sided weakness Rhonchi (Eugenia Cortez) Review of Systems Constitutional Constitutional: Weakness (generalized, no CVA) Constitutional Remarks 10 point ROS done positives noted (Eugenia Cortez) Pulmonary Respiratory: Coughing (occasional) Pulmonary Remarks Rhonchi (Eugenia Cortez) GI/Abdomen GI/Abdominal Exam: Diarrhea GI/Abdomen Remarks Nothing by mouth PEG tube feedings Diarrhea (Eugenia Cortez) Musculoskeletal MS: Weakness, Stiffness (right upper extremity flaccid, chronic) (Eugenia Cortez) Psychiatric Psychiatric Remarks Opens eyes and responds to verbal stimuli (Eugenia Cortez) Vitals/Results Intake & Output 07/05/16 07/05/16 07/06/16 15:00 23:00 07:00 Intake Total 0 ml 1858 ml Output Total 1 ml Balance 0 ml 1857 ml Intake Oral 0 ml IV Total 981 ml Tube Feeding 677 ml Other 200 ml Output Urine Total 1 ml # Voids 3 Vital Signs Vital Signs Date Time Temp Pulse Resp B/P Pulse Ox O2 Delivery O2 Flow Rate FiO2 07/06/16 08:00 98.1 82 18 128/87 97 07/06/16 04:11 99.3 82 18 128/67 98 07/06/16 00:18 97.6 68 20 134/80 97 07/05/16 20:35 99.1 79 20 146/73 99 07/05/16 16:08 97.0 74 20 65/ 99 07/05/16 12:00 96.6 74 18 138/72 99 07/05/16 10:34 96 (Eugenia Cortez) CBC/BMP: 07/05/16 0830 07/05/16 0830 Lab Results Laboratory Tests Test 07/05/16 12:50 Stool C. difficile Toxin (PCR) NEGATIVE Stl C. difficile Toxin PRESUMPTIVE Epiderm 027 NEGATIVE Microbiology Microbiology 07/05/16 Stool Occult Blood (ZIGGY), Received Pending Current Medications Active Medications Loperamide HCl (Imodium Liq) 2 mg Q4HR PEG Last administered on 07/06/16t 08:00 ; Admin Dose 2 MG; Start 07/05/16 at 16:00 (Diego,Eugenia M. JOINT SETTER) Physical Exam General General Appearance: No Acute Distress, Comfortable ([place] M. JOINT SETTER) Eyes Eye Exam: Pupils Equal, Pupils Reactive (sluggish) ([place] M. JOINT SETTER) Ears & Nose Ears & Nose Exam: Nasal Mucosa [place] (pink pale) ([place]ira[place]ugenia M. JOINT SETTER) Throat Throat Exam: Oral Mucosa [place] & Moist (pale) (Diego,Eugenia M. JOINT SETTER) Neck Neck Exam: Neck Supple ([place] M. JOINT SETTER) Pulmonary Resp Exam: No Distress, Rhonchi, Decreased Bases, Diminished Breath Sounds, Poor Inspiratory Effort (DiegoEugenia M. JOINT SETTER) Cardiology CV Exam: Regular ([place] M. JOINT SETTER) Gastrointestinal/Abdomen GI Exam: Soft, Non-Tender, Bowel Sounds Present GI Remarks PEG tube intact diarrhea ([place] M. JOINT SETTER) Genitourinary Exam: Clear Urine (Diego,Eugneia M. JOINT SETTER) Musculoskeletal MS Exam: Atrophy (DiegoEugenia M. JOINT SETTER) Integumentary Skin Exam: Clear, Warm, Dry (DiegoEugenia M. JOINT SETTER) Extremeties Extremities Exam: No Edema, Pedal Pulses Palpable (DiegoEugenia M. JOINT SETTER) Neurologic Neuro Exam: Alert, Awake ([place] M. JOINT SETTER) VTE Prophylaxis VTE Prophylaxis Device: SCDs VTE Prophylaxis Meds: Heparin ([place]ug[place] M. JOINT SETTER) Assessment/Plan Assessment/Plan History of intracranial aneurysm and bleed, history of CVA, no acute findings Continue with tube feeding, PEG tube site clean dry and intact Appreciate GI input, patient nothing by mouth with acutechronic aspiration. Diarrhea improved, probable secondary to tube feed. Continue antidiarrhea meds. Rectal [place] d/cd. C diff negative. Seizure precautions on Keppra and Dilantin neurology , reconsult with medicines adjusted IV steroids DC'd Leukocytosis probable secondary to steroids. Will monitor, no acute changes, lab reviewed US thyroid -complex cystic left thyroid mass, monitor for now Anemia chronic disease, stable hemoglobin at 10.4, Heparin for DVT prophylaxis PPI for GI prophylaxis CM written per Dr. Valdivia yesterday pm. Discussed with care nurse D/W Dr. Berumen patient seen on her behalf (Eugenia Cortez) Assessment/Plan 70yr old female was seen and examined today. Above A/P was discussed with Eugenia. Clinically stable for dc to SNF today. (Fariha Berumen MD) Eugenia Cortez Jul 06, 2016 09:39 Fariha Berumen MD Jul 06, 2016 14:26
[2016-07-06] MEDS: HEPARIN SODIUM - SQ 10,000 UNITS/ML VIAL SQ SCH (11:00)
[2016-07-06 12:00] VITALS: BP 149/86; PULSE 86; RESP 19; TEMP 98.8; O2SAT 96
--- NOTE | 2016-07-06 18:31 | HHI.DS ---
Discharge Summary Admission Date Jun 17, 2016 at 22:27 Discharge Date: Jul 06, 2016 Admitting Diagnosis stroke alert/altered mental status Procedures PEG Brief History This was an unfortunate 70-year-old black female who was a current [facility] resident. It was noted in the record has a history of a large MCA stroke with right-sided hemiparesis. The patient also had co-morbidities such as schizoaffective disorder and COPD. The patient was noted per the [facility] staff to have a possible new left facial droop and appeared to be less responsive than she usually is. At the time EMS got to her she was unable to follow directions and had a left-sided pronator drift. All this information is according to the medical record. the patient was in the intensive care setting. She was managed on mechanical ventilation and sedation. There was no family present, although the staff stated that her daughter came this morning to see her mother. CBC/BMP: 07/05/16 0830 07/05/16 0830 Significant Findings Laboratory Tests Test 07/05/16 08:30 White Blood Count 12.6 TH/MM3 (4.0-11.0) Hemoglobin 10.9 GM/DL (11.6-15.3) Mean Corpuscular Hemoglobin 26.6 PG (27.0-34.0) Mean Corpuscular Hemoglobin 31.0 % Concent (32.0-36.0) Red Cell Distribution Width 18.0 % (11.6-17.2) Platelet Count 96 TH/MM3 (150-450) Mean Platelet Volume 11.4 FL (7.0-11.0) Chloride Level 109 MEQ/L (98-107) Carbon Dioxide Level 20.0 MEQ/L (21.0-32.0) Blood Urea Nitrogen 26 MG/DL (7-18) Creatinine 1.11 MG/DL (0.50-1.00) Estimat Glomerular Filtration 59 ML/MIN (>89) Rate Random Glucose 131 MG/DL (74-106) Calcium Level 7.8 MG/DL (8.5-10.1) Phosphorus Level 1.0 MG/DL (2.5-4.9) Phenytoin (Dilantin) Level 8.7 MCG/ML (10.0-20.0) PE at Discharge General General Appearance: No Acute Distress, Comfortable Eyes Eye Exam: Pupils Equal, Pupils Reactive Ears & Nose Ears & Nose Exam: Nasal Mucosa [place] Neck Neck Exam: Neck Supple Pulmonary Resp Exam: No Distress, Rhonchi, Diminished Breath Sounds Cardiology CV Exam: Regular Gastrointestinal/Abdomen GI Exam: Soft, Non-Tender, Bowel Sounds Present GI Remarks PEG tube with feedings, no bleeding, no exudate from insertion site Genitourinary Exam: Clear Urine Remarks KITCHEN Musculoskeletal MS Exam: Atrophy Integumentary Skin Exam: Clear, Warm, Dry Extremeties Extremities Exam: No Edema, Pedal Pulses Palpable Neurologic Neuro Exam: Awake Neuro Remarks right sided hemiplegia VTE Prophylaxis VTE Prophylaxis Device: SCDs VTE Prophylaxis Meds: Heparin PUD Prophylasis PUD Remarks Prevacid Hospital Course These are the diagnosis used to treat patient during hospital stay. Electrolyte imbalance Respiratory failure earlier this admission, extubated to 06/23/16 Left base parenchymal opacity, question pneumonia Unable to swallow , status post PEG tube placement 06/28/16 metabolic encephalopathy Hx stroke Seizure disorder, recurrent Dementia disorder NOS Schizoaffective disorder Acute respiratory failure History of hypertension Dyslipidemia Chronic diastolic heart failure ejection fraction 55% h/o Liver cirrhosis hyper ammonemia KARTHIK/CKD hypernatremia Streptococcus viridans UTI Possible thyroiditis History of left MCA stroke with right hemiparesis History of intracranial aneurysm and bleed Plan of care Patient initially was in the ICU setting, ventilator management. She was extubated 06/23/16. vital signs and labs were drawn and manged throughout the hospital course. THis included hypernatremia, UTI, KARTHIK, HTN, CHF and most of the other diagnosis made. Throughout hospital course, patient responded very minimally to verbal response. Patient was unable to eat, or swallow appropriately. Peg tube placed for feeding. Patient was Full code, full agressive care throughout stay. Continue with 5% dextrose intravenously with potassium chloride was used for hydration. Monitor BPM Na improving, 151, moniotred with labs. Continue with tube feeding Appreciate GI consult for peg placement. Seizure precautions on Keppra and Dilantin reconsulted neurology for recurrent seizures during stay, input appreciated, meds adjusted repeat EEG-abnormal EEG/b/l sharp waves Dilantin level repeated several times until normal range was recieved. TSI 194 US thyroid -complex cystic left thyroid mass measuring 4.6 cm. Medical management. Recieved antibiotics for 14 days no fever noted, so antibiotics d/cd kitchen catheter initally, but removed after going to medical floor. ammonia Mar. Lactulose to daily, DC Rifaximin Liquid stool /diarrhea off and on. Thrombocytopenia, plat. 98 monitor for bleeding Treatment with IV Hydrocortisone, weaned over 4 days before discharge. Heparin for DVT prophylaxis PPI for GI prophylaxis Once vital signs, seizures, peg tube and feedings stable, CM was working with discharge planning. Seen per Dr. Valdivia on 07/05/16, stable for transfer. Pt Condition on Discharge: Guarded Discharge Disposition: Discharge to SNF Discharge Instructions DIET: Follow Instructions for: On Tube Feeding Activities you can perform: Continue Bedrest Continued Medications: Acetaminophen (Tylenol) 325 Mg Tab 650 MG PO Q6H PRN PAIN SCALE 1 TO 10 Ref 0 TAB Clonidine (Clonidine) 0.1 Mg Tab 0.1 MG PO BID Blood Pressure Management #60 Ref 0 TAB Levetiracetam Liq (Keppra Liq) 500 Mg/5 Ml Soln 250 MG PO BID Control Seizures #300 Ref 0 ML Levetiracetam Liq (Levetiracetam Liq) 500 Mg/5 Ml Soln 500 MG PO HS Control Seizures #300 Ref 0 ML Lisinopril (Lisinopril) 20 Mg Tab 20 MG PO DAILY #30 Ref 0 TAB Discontinued Medications: Hydrochlorothiazide (Hydrochlorothiazide) 25 Mg Tab 25 MG PO DAILY #30 Ref 0 TAB Lorazepam (Lorazepam) 0.5 Mg Tab 0.5 MG PO BID PRN ANXIETY Ref 0 TAB Metoprolol Tartrate (Metoprolol Tartrate) 50 Mg Tab 50 MG PO BID #60 Ref 0 TAB Mirtazapine (Mirtazapine) 7.5 Mg Tab 7.5 MG PO HS Depression Control #30 Ref 0 TAB Potassium Chloride Liq (Potassium Chloride Liq) 20 Meq/15 Ml Soln 20 MEQ PO DAILY Electrolyte Replacement Ref 0 ML Pravastatin (Pravastatin) 20 Mg Tab 20 MG PO DAILY Cholesterol Management #30 Ref 0 TAB Eugenia Cortez Jul 06, 2016 18:31
== END 2016-07-06 14:03 | DRG 870 ==
LOC: NEPE 20:00 → NEDA 22:27 → HIMW 06-18 05:35 → HCIS 06-24 22:27 → N05A 06-28 17:29
PROVIDERS: ADMIT Internal Medicine; ATTEND Internal Medicine
PROC: 5A1955Z Respiratory Ventilation, Greater than 96 Consecutive Hours (ICD-10-PCS; principal; 2016-06-18)
PROC: 0BH17EZ Insertion of Endotracheal Airway into Trachea, Via Natural or Artificial Opening (ICD-10-PCS; 2016-06-18)
PROC: 0D598ZZ Destruction of Duodenum, Via Natural or Artificial Opening Endoscopic (ICD-10-PCS; 2016-06-28)
PROC: 0DH63UZ Insertion of Feeding Device into Stomach, Percutaneous Approach (ICD-10-PCS; 2016-06-28 10:11)
DX: A41.9 Sepsis, unspecified organism (principal); J96.00 Acute respiratory failure, unspecified whether with hypoxia or hypercapnia; G93.41 Metabolic encephalopathy; N17.9 Acute kidney failure, unspecified; E87.0 Hyperosmolality and hypernatremia; J18.9 Pneumonia, unspecified organism; I13.0 Hypertensive heart and chronic kidney disease with heart failure and stage 1 through stage 4 chronic kidney disease, or unspecified chronic kidney disease; I69.351 Hemiplegia and hemiparesis following cerebral infarction affecting right dominant side; I50.32 Chronic diastolic (congestive) heart failure; F03.90 Unspecified dementia, unspecified severity, without behavioral disturbance, psychotic disturbance, mood disturbance, and anxiety; N39.0 Urinary tract infection, site not specified; J44.9 Chronic obstructive pulmonary disease, unspecified; F25.9 Schizoaffective disorder, unspecified; G40.909 Epilepsy, unspecified, not intractable, without status epilepticus; E78.5 Hyperlipidemia, unspecified; D69.6 Thrombocytopenia, unspecified; N18.9 Chronic kidney disease, unspecified; B95.4 Other streptococcus as the cause of diseases classified elsewhere; I65.21 Occlusion and stenosis of right carotid artery; M21.372 Foot drop, left foot; M21.371 Foot drop, right foot; G47.30 Sleep apnea, unspecified; K21.9 Gastro-esophageal reflux disease without esophagitis; K74.60 Unspecified cirrhosis of liver; D63.8 Anemia in other chronic diseases classified elsewhere; E87.6 Hypokalemia; K29.80 Duodenitis without bleeding; R13.10 Dysphagia, unspecified; Q27.33 Arteriovenous malformation of digestive system vessel; E07.89 Other specified disorders of thyroid; E83.39 Other disorders of phosphorus metabolism; E88.09 Other disorders of plasma-protein metabolism, not elsewhere classified; G93.89 Other specified disorders of brain; R79.89 Other specified abnormal findings of blood chemistry; Z85.3 Personal history of malignant neoplasm of breast; Z88.6 Allergy status to analgesic agent
CPT/HCPCS: 31500; 36600; 70450; 70544; 70551; 71010; 76536; 76775; 76937; 80048; 80053; 80177; 80185; 80307; 81001; 82140; 82272; 82435; 82533; 82550; 82565; 82607; 82805; 82947; 83605; 83735; 83930; 83935; 84100; 84132; 84146; 84295; 84300; 84432; 84439; 84443; 84445; 84481; 84484; 84520; 85025; 85027; 85384; 85610; 85730; 86376; 86800; 86850; 86900; 86901; 87040; 87086; 87186; 87205; 87493; 87641; 93005; 93308; 93880; 94002; 94003; 94150; 94640; 94664; 95819; 96365; C9113; J0330; J0692; J1165; J1644; J1720; J1980; J2250; J2543; J3010; J3480; J7030; J7050; J7070; P9612

== ENCOUNTER 2016-07-08 15:44 | Inpatient (IN) | payer MEDICARE, MEDICAID ==
[~2016-07-08] VITALS: Ht 167.6 cm; Wt 83.1 kg
[2016-07-08] VITALS (8 sets, daily range): BP systolic 116–159; BP diastolic 64–101; PULSE 97–160; RESP 20–45; TEMP 97.9–99.1; O2SAT 96–100
[~2016-07-08 15:44] MED LIST changes: -ACET325 PO; -CLON.1 PO; +CLON0.1T PEG; -FERR220E PO; -KEPP1000 PO; +LEVE100S PO; +LEVE500S PO; -LISI-363 PO; +LISI-515 PEG; -LORA-474 PO; -METO50 PO; -PLAV75TA PO; -POTA20PA PO; -PRAV40TA2 PO; -RANI150C PO; -RISP0.252 PO; +TYLE325T PEG
--- NOTE | 2016-07-08 15:58 | PD ---
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 Patient is tachypneic with accessory muscle use and offers no history regarding why she is here. She does report abdominal pain. Abrasion presents with report from nursing facility. No reports of nausea or vomiting. No reports of fever. No other symptoms to report. PFSH Past Medical History Asthma: Yes Anxiety: Yes Depression: Yes Cancer: Yes (LEFT BREAST) Cardiovascular Problems: Yes Congestive Heart Failure: Yes Cerebrovascular Accident: Yes (INTRACRANIAL BLEED) Diminished Hearing: No Gastrointestinal Disorders: Yes (DYSPHAGIA-- GI BLEED) GERD: Yes Genitourinary: Yes Hypertension: Yes Implanted Vascular Access Dvce: Yes Insomnia: Yes Neurologic: Yes (Intracerebral bleed/Dyshpagia, DEPRESSIVE DISORDER, DYSPHAGIA) Psychiatric: Yes (SCHIZOAFFECTIVE D/O) Respiratory: Yes (Pleural Effusion) Schizophrenia: Yes Seizures: Yes Sleep Apnea: Yes (INSOMNIA W/SLEEP APNEA) Triglycerides - High: Yes Menopausal: Yes : 3 Para: 3 Past Surgical History Abdominal Surgery: Yes (PREVIOUS PEG TUBE PLACEMENT) Body Medical Devices: PEG TUBE Pacemaker: No Other Surgery: Yes Social History Alcohol Use: No Tobacco Use: No (UNKNOWN) Substance Use: No Allergies-Medications (Allergen,Severity, Reaction): Coded Allergies: Aspirin (Verified Allergy, Severe, 06/17/16) *MDRO Multi-Drug Resistant Organism (Verified Adverse Reaction, Unknown, Cleared 05/2016, 06/26/16) MRSA (wound & sputum) - 01/2012 *Cleared - MRSA PCR (nares) NEGATIVE on 06/18/16 & 06/25/16* Reported Meds & Prescriptions Reported Meds & Active Scripts Active Reported Tylenol (Acetaminophen) 325 Mg Tab 650 Mg PO Q6H PRN Levetiracetam Liq (Levetiracetam) 500 Mg/5 Ml Soln 500 Mg PO HS Lisinopril 20 Mg Tab 20 Mg PO DAILY Keppra Liq (Levetiracetam) 500 Mg/5 Ml Soln 250 Mg PO BID Clonidine (Clonidine HCl) 0.1 Mg Tab 0.1 Mg PO BID Review of Systems ROS Limitations: Altered Mental Status, Poor Historian Except as stated in HPI: all other systems reviewed are Neg Physical Exam Exam Limitations: Altered Mental Status Narrative GENERAL: Well-nourished female patient, appears in respiratory distress SKIN: Warm and dry. HEAD: Atraumatic. Normocephalic. EYES: Pupils equal and round. No scleral icterus. No injection or drainage. ENT: No nasal bleeding or discharge. Mucous membranes pink and moist. NECK: Trachea midline. No JVD. CARDIOVASCULAR: Tachycardic rate and rhythm. RESPIRATORY: Tachypneic. Coarse throughout with scattered rhonchi to auscultation. Diminished bases. Breath sounds equal bilaterally. GASTROINTESTINAL: Abdomen rotund, soft, tender to palpation. PEG tube in place.. Hepatic and splenic margins not palpable. MUSCULOSKELETAL: No obvious deformities. No clubbing. No cyanosis. No edema. NEUROLOGICAL: Awake and alert. No obvious cranial nerve deficits. Right sided hemiparesis. Distal pulses are palpable. Cap refill within normal limits. Limited speech Data Data Last Documented VS Vital Signs Date Time Temp Pulse Resp B/P Pulse Ox O2 Delivery O2 Flow Rate FiO2 07/08/16 18:47 33 97 Nasal Cannula 4 07/08/16 17:01 129 159/73 07/08/16 15:56 99.1 Orders Electrocardiogram (07/08/16 15:54) Complete Blood Count With Diff (07/08/16 15:54) Comprehensive Metabolic Panel (07/08/16 15:54) Prothrombin Time / Inr (Pt) (07/08/16 15:54) Act Partial Throm Time (Ptt) (07/08/16 15:54) Lactic Acid Sepsis Protocol (07/08/16 15:54) Magnesium (Mg) (07/08/16 15:54) Phosphorus (Po4) (07/08/16 15:54) Lipase (07/08/16 15:54) Ckmb (Isoenzyme) Profile (07/08/16 15:54) Troponin I (07/08/16 15:54) Urinalysis - C+S If Indicated (07/08/16 15:54) Influenzae A/B Antigen (07/08/16 15:54) Blood Culture (07/08/16 15:54) Chest, Single Ap (07/08/16 15:54) Blood Glucose (07/08/16 15:54) Ecg Monitoring (07/08/16 15:54) Iv Access Insert/Monitor (07/08/16 15:54) Oximetry (07/08/16 15:54) Oxygen Administration (07/08/16 15:54) Diltiazem Inj (Cardizem Inj) (07/08/16 16:00) Arterial Blood Gas (Abg) (07/08/16 ) Vital Signs (Adult) Q15MX4,Q4H (07/08/16 16:14) Industrial Trainer / Telemetry MORALES.Q8H (07/08/16 16:14) Cardiac Rhythm MORALES.Q8H (07/08/16 16:14) ^ Notify Dr: Other (07/08/16 16:14) Diltiazem Inj (Cardizem Inj) (07/08/16 16:15) Diltiazem Inj (Cardizem Inj) (07/08/16 16:45) Ct Pulmonary Angiogram (07/08/16 ) Ct Abd/Pel W Iv Contrast(Rout) (07/08/16 ) Cefepime Inj (Maxipime Inj) (07/08/16 16:18) Levofloxacin 750 Mg Premix Inj (Levaquin (07/08/16 16:30) Electrocardiogram (07/08/16 16:13) Electrocardiogram (07/08/16 16:17) C Diff Toxin Pcr (07/08/16 17:34) Urinary Catheter Management MORALES.Q8H (07/08/16 17:34) Urine Culture (07/08/16 17:45) Labs Laboratory Tests Test 07/08/16 07/08/16 07/08/16 16:23 16:33 17:45 White Blood Count 14.4 TH/MM3 Red Blood Count 3.71 MIL/MM3 Hemoglobin 9.9 GM/DL Hematocrit 31.0 % Mean Corpuscular Volume 83.7 FL Mean Corpuscular Hemoglobin 26.7 PG Mean Corpuscular Hemoglobin 31.9 % Concent Red Cell Distribution Width 18.1 % Platelet Count 111 TH/MM3 Mean Platelet Volume 11.1 FL Neutrophils (%) (Auto) 79.1 % Lymphocytes (%) (Auto) 12.6 % Monocytes (%) (Auto) 6.8 % Eosinophils (%) (Auto) 1.3 % Basophils (%) (Auto) 0.2 % Neutrophils # (Auto) 11.4 TH/MM3 Lymphocytes # (Auto) 1.8 TH/MM3 Monocytes # (Auto) 1.0 TH/MM3 Eosinophils # (Auto) 0.2 TH/MM3 Basophils # (Auto) 0.0 TH/MM3 CBC Comment DIFF FINAL Differential Comment Prothrombin Time 11.2 SEC Prothromb Time International 1.0 RATIO Ratio Activated Partial 30.3 SEC Thromboplast Time Sodium Level 139 MEQ/L Potassium Level 4.3 MEQ/L Chloride Level 107 MEQ/L Carbon Dioxide Level 24.0 MEQ/L Anion Gap 8 MEQ/L Blood Urea Nitrogen 19 MG/DL Creatinine 1.15 MG/DL Estimat Glomerular Filtration 57 ML/MIN Rate Random Glucose 150 MG/DL Calcium Level 8.1 MG/DL Phosphorus Level 2.8 MG/DL Magnesium Level 1.8 MG/DL Total Bilirubin 0.9 MG/DL Aspartate Amino Transf 75 U/L (AST/SGOT) Alanine Aminotransferase 52 U/L (ALT/SGPT) Alkaline Phosphatase 157 U/L Total Creatine Kinase 63 U/L Troponin I 0.04 NG/ML Total Protein 7.5 GM/DL Albumin 2.0 GM/DL Lipase 593 U/L Lactic Acid Level 1.6 mmol/L Urine Color YELLOW Urine Turbidity HAZY Urine pH 5.5 Urine Specific [place] 1.014 Urine Protein 30 mg/dL Urine Glucose (UA) NEG mg/dL Urine Ketones NEG mg/dL Urine Occult Blood NEG Urine Nitrite NEG Urine Bilirubin NEG Urine Urobilinogen LESS THAN 2.0 MG/DL Urine Leukocyte Esterase LARGE Urine RBC 1 /hpf Urine WBC 21 /hpf Urine WBC Clumps OCC Urine Squamous Epithelial 1 /hpf Cells Urine Bacteria FEW /hpf Urine Mucus FEW /lpf Urine Yeast with Hyphae FEW Urine Yeast (Budding) MOD Microscopic Urinalysis Comment CATH-CULTURE IND MDM Medical Decision Making Medical Screen Exam Complete: Yes Emergency Medical Condition: Yes Medical Record Reviewed: Yes Differential Diagnosis Pneumonia versus influenza versus PE versus electrode abnormality versus arrhythmia Narrative Course 70 year-old female presents to emergency department for evaluation of worsening shortness breath. Patient is tachypneic and tachycardic with a heart rate in the 160s initially upon arrival. I have discussed the patient with my attending physician Dr. Barboza who is also assessed the patient. Patient is given Cardizem bolus. This temporarily slowed the rate but increases again. Patient is given another bolus of Cardizem. She is placed on a Cardizem drip. Patient is given IV antibiotics. Sepsis protocols initiated. Laboratory Tests Test 07/08/16 07/08/16 16:23 16:33 White Blood Count 14.4 TH/MM3 Red Blood Count 3.71 MIL/MM3 Hemoglobin 9.9 GM/DL Hematocrit 31.0 % Mean Corpuscular Volume 83.7 FL Mean Corpuscular Hemoglobin 26.7 PG Mean Corpuscular Hemoglobin 31.9 % Concent Red Cell Distribution Width 18.1 % Platelet Count 111 TH/MM3 Mean Platelet Volume 11.1 FL Neutrophils (%) (Auto) 79.1 % Lymphocytes (%) (Auto) 12.6 % Monocytes (%) (Auto) 6.8 % Eosinophils (%) (Auto) 1.3 % Basophils (%) (Auto) 0.2 % Neutrophils # (Auto) 11.4 TH/MM3 Lymphocytes # (Auto) 1.8 TH/MM3 Monocytes # (Auto) 1.0 TH/MM3 Eosinophils # (Auto) 0.2 TH/MM3 Basophils # (Auto) 0.0 TH/MM3 CBC Comment DIFF FINAL Differential Comment Prothrombin Time 11.2 SEC Prothromb Time International 1.0 RATIO Ratio Activated Partial 30.3 SEC Thromboplast Time Sodium Level 139 MEQ/L Potassium Level 4.3 MEQ/L Chloride Level 107 MEQ/L Carbon Dioxide Level 24.0 MEQ/L Anion Gap 8 MEQ/L Blood Urea Nitrogen 19 MG/DL Creatinine 1.15 MG/DL Estimat Glomerular Filtration 57 ML/MIN Rate Random Glucose 150 MG/DL Calcium Level 8.1 MG/DL Phosphorus Level 2.8 MG/DL Magnesium Level 1.8 MG/DL Total Bilirubin 0.9 MG/DL Aspartate Amino Transf 75 U/L (AST/SGOT) Alanine Aminotransferase 52 U/L (ALT/SGPT) Alkaline Phosphatase 157 U/L Total Creatine Kinase 63 U/L Troponin I 0.04 NG/ML Total Protein 7.5 GM/DL Albumin 2.0 GM/DL Lipase 593 U/L Lactic Acid Level 1.6 mmol/L Patient is noted to be with leukocytosis of 14.4. Hemoglobin 7.9. CMP is with BUN 19, creatinine 1.15. GFR is 57. Troponin 0.04. Lipase elevated at 593. Lactic acid is 1.6. Rosales catheter has been ordered. Urinalysis is not yet collected. CT imaging of the abdomen and pelvis and CT pulmonary angiogram are ordered. Last Impressions CT Angiography 07/08/16 0000 Signed Impressions: Service Date/Time: Friday, July 08, 2016 18:29 - CONCLUSION: 1. Limited study from motion artifact. No definite PE in the main pulmonary arteries. 2. Mild bibasilar infiltrates. Edilson Solis MD Abdomen/Pelvis CT 07/08/16 0000 Signed Impressions: Service Date/Time: Friday, July 08, 2016 18:29 - CONCLUSION: 1. Bibasilar atelectasis. 2. Stable cystic mass involving the proximal body of the pancreas. No significant change compared to 2012. 3. Small amount of free fluid in the pelvis. 4. Hepatocellular disease of the liver which appears to be stable. 5. No new or significant changes. Edilson Solis MD Laboratory Tests Test 07/08/16 07/08/16 07/08/16 16:23 16:33 17:45 White Blood Count 14.4 TH/MM3 Red Blood Count 3.71 MIL/MM3 Hemoglobin 9.9 GM/DL Hematocrit 31.0 % Mean Corpuscular Volume 83.7 FL Mean Corpuscular Hemoglobin 26.7 PG Mean Corpuscular Hemoglobin 31.9 % Concent Red Cell Distribution Width 18.1 % Platelet Count 111 TH/MM3 Mean Platelet Volume 11.1 FL Neutrophils (%) (Auto) 79.1 % Lymphocytes (%) (Auto) 12.6 % Monocytes (%) (Auto) 6.8 % Eosinophils (%) (Auto) 1.3 % Basophils (%) (Auto) 0.2 % Neutrophils # (Auto) 11.4 TH/MM3 Lymphocytes # (Auto) 1.8 TH/MM3 Monocytes # (Auto) 1.0 TH/MM3 Eosinophils # (Auto) 0.2 TH/MM3 Basophils # (Auto) 0.0 TH/MM3 CBC Comment DIFF FINAL Differential Comment Prothrombin Time 11.2 SEC Prothromb Time International 1.0 RATIO Ratio Activated Partial 30.3 SEC Thromboplast Time Sodium Level 139 MEQ/L Potassium Level 4.3 MEQ/L Chloride Level 107 MEQ/L Carbon Dioxide Level 24.0 MEQ/L Anion Gap 8 MEQ/L Blood Urea Nitrogen 19 MG/DL Creatinine 1.15 MG/DL Estimat Glomerular Filtration 57 ML/MIN Rate Random Glucose 150 MG/DL Calcium Level 8.1 MG/DL Phosphorus Level 2.8 MG/DL Magnesium Level 1.8 MG/DL Total Bilirubin 0.9 MG/DL Aspartate Amino Transf 75 U/L (AST/SGOT) Alanine Aminotransferase 52 U/L (ALT/SGPT) Alkaline Phosphatase 157 U/L Total Creatine Kinase 63 U/L Troponin I 0.04 NG/ML Total Protein 7.5 GM/DL Albumin 2.0 GM/DL Lipase 593 U/L Lactic Acid Level 1.6 mmol/L Urine Color YELLOW Urine Turbidity HAZY Urine pH 5.5 Urine Specific [place] 1.014 Urine Protein 30 mg/dL Urine Glucose (UA) NEG mg/dL Urine Ketones NEG mg/dL Urine Occult Blood NEG Urine Nitrite NEG Urine Bilirubin NEG Urine Urobilinogen LESS THAN 2.0 MG/DL Urine Leukocyte Esterase LARGE Urine RBC 1 /hpf Urine WBC 21 /hpf Urine WBC Clumps OCC Urine Squamous Epithelial 1 /hpf Cells Urine Bacteria FEW /hpf Urine Mucus FEW /lpf Urine Yeast with Hyphae FEW Urine Yeast (Budding) MOD Microscopic Urinalysis Comment CATH-CULTURE IND Patient has a leukocytosis 14.4. Neutrophil count of 11.4. BUN is 19 creatinine is 1.15. Lipase is elevated at 593. Urine is hazy with 30 protein, large leukocyte esterase, 21 and a PVC, occasional WBC comes. He bacteria, few mucus, few yeast. Cultures indicated. Stool sent for C. difficile PCR. I discussed the patient with Dr. Pittman. Patient will be admitted to [facility]. Sepsis Criteria SIRS Criteria (2 or more): Heart rate over 90, WBC > 28447, < 4000 or > 10% bands Sepsis Criteria (SIRS+source): Infect source susp/known Diagnosis Primary Impression: Sepsis Qualified Code: A41.9 - Sepsis, due to unspecified organism Additional Impressions: Respiratory distress UTI (urinary tract infection) Qualified Code: N39.0 - Urinary tract infection without hematuria, site unspecified Tachycardia with heart rate 121-140 beats per minute Admitting Information Admitting Physician Requests: Admit Condition: Stable Samreen Wheat Jul 08, 2016 15:58
[2016-07-08] MEDS ORDERED: DILTIAZEM HCL 25 MG/5 ML VIAL IV ONE (16:00)
[2016-07-08] MEDS ORDERED: DILTIAZEM INJ 125 MG in SODIUM CHLORIDE 0.9% INJ 100 ML IV SCH (16:15)
[2016-07-08] MEDS ORDERED: CEFEPIME INJ 2,000 MG in SODIUM CHLORIDE 0.9% INJ 100 ML IV STA (16:18)
[2016-07-08] MEDS ORDERED: LEVOFLOXACIN 750 MG PREMIX INJ 150 ML IV ONE (16:30)
[2016-07-08] MEDS ORDERED: DILTIAZEM HCL 25 MG/5 ML VIAL IV PUSH PRN (16:45)
[2016-07-08 16:48] LABS: AUTOMATED NEUTROPHIL # 11.4 TH/MM3 (1.8-7.7); BASOPHIL % 0.2 % (0.0-2.0); EOSINOPHIL # 0.2 TH/MM3 (0-0.4); EOSINOPHIL % 1.3 % (0.0-4.0); HEMO FLAGS DIFF FINAL; LYMPH % 12.6 % (9.0-44.0); LYMPHOCYTE # 1.8 TH/MM3 (1.0-4.8); MEAN CELL VOLUME 83.7 FL (80.0-100.0); MEAN CORPUSCULAR HEMOGLOBIN 26.7 PG (27.0-34.0); MEAN CORPUSCULAR HGB CONC 31.9 % (32.0-36.0); MONO % 6.8 % (0.0-8.0); NEUT % 79.1 % (16.0-70.0); PLATELET COUNT 111 TH/MM3 (150-450); RED BLOOD COUNT 3.71 MIL/MM3 (4.00-5.30); RED CELL DISTRIBUTION WIDTH 18.1 % (11.6-17.2); WHITE BLOOD COUNT 14.4 TH/MM3 (4.0-11.0)
[2016-07-08 17:01] LABS: APTT (PATIENT) 30.3 SEC (24.3-30.1); PROTHROMBIN TIME - PATIENT 11.2 SEC (9.8-11.6)
--- NOTE | 2016-07-08 17:01 | PD ---
Physical Exam Narrative I, Dr. Barboza, have reviewed the advance practice practitioner's documentation and am in agreement, met with the patient face to face, made the diagnosis, and the medical decision making was done by me. *My assessment and Findings: Patient is a 70 year old female BIBEMS from her nursing facility with SOB and AMS. Patient is tachycardic and tachypneic on arrival. Patient received 6mg Adenosine by EMS with brief improvement of her tachycardia , which then returned to a pulse rate in the 160s. Patient has had a severe stroke in the past and is unable to provide much history. She does say she feels SOB. Data Data Last Documented VS Vital Signs Date Time Temp Pulse Resp B/P Pulse Ox O2 Delivery O2 Flow Rate FiO2 07/08/16 19:57 111 22 158/65 100 Nasal Cannula 2 07/08/16 15:56 99.1 Orders Electrocardiogram (07/08/16 15:54) Complete Blood Count With Diff (07/08/16 15:54) Comprehensive Metabolic Panel (07/08/16 15:54) Prothrombin Time / Inr (Pt) (07/08/16 15:54) Act Partial Throm Time (Ptt) (07/08/16 15:54) Lactic Acid Sepsis Protocol (07/08/16 15:54) Magnesium (Mg) (07/08/16 15:54) Phosphorus (Po4) (07/08/16 15:54) Lipase (07/08/16 15:54) Ckmb (Isoenzyme) Profile (07/08/16 15:54) Troponin I (07/08/16 15:54) Urinalysis - C+S If Indicated (07/08/16 15:54) Influenzae A/B Antigen (07/08/16 15:54) Blood Culture (07/08/16 15:54) Chest, Single Ap (07/08/16 15:54) Blood Glucose (07/08/16 15:54) Ecg Monitoring (07/08/16 15:54) Iv Access Insert/Monitor (07/08/16 15:54) Oximetry (07/08/16 15:54) Oxygen Administration (07/08/16 15:54) Diltiazem Inj (Cardizem Inj) (07/08/16 16:00) Vital Signs (Adult) Q15MX4,Q4H (07/08/16 16:14) Splicing Supervisor / Telemetry MORALES.Q8H (07/08/16 16:14) Cardiac Rhythm MORALES.Q8H (07/08/16 16:14) ^ Notify Dr: Other (07/08/16 16:14) Diltiazem Inj (Cardizem Inj) (07/08/16 16:15) Diltiazem Inj (Cardizem Inj) (07/08/16 16:45) Ct Pulmonary Angiogram (07/08/16 ) Ct Abd/Pel W Iv Contrast(Rout) (07/08/16 ) Cefepime Inj (Maxipime Inj) (07/08/16 16:18) Levofloxacin 750 Mg Premix Inj (Levaquin (07/08/16 16:30) Electrocardiogram (07/08/16 16:13) Electrocardiogram (07/08/16 16:17) C Diff Toxin Pcr (07/08/16 17:34) Urinary Catheter Management MORALES.Q8H (07/08/16 17:34) Urine Culture (07/08/16 17:45) Admit Order (Ed Use Only) (07/08/16 20:01) Labs Laboratory Tests Test 07/08/16 07/08/16 07/08/16 07/08/16 16:00 16:23 16:33 17:45 Blood Gas Puncture Site PERIPHERAL Blood Gas Patient Temperature 98.6 Venous Blood pH 7.26 Venous Blood Partial Pressure 52 mmHg CO2 Venous Blood Partial Pressure 30 mmHg O2 Venous Blood HCO3 23 mmol/L Venous Blood Oxygen Saturation 41 % Venous Blood Oxygen Content 7.4 Vol % Venous Blood Base Excess -3.3 mmol/L Oxygen Delivery Device NASAL CANNULA Blood Gas Liter Flow 4 L/M Blood Gas Inspired Oxygen 36 % White Blood Count 14.4 TH/MM3 Red Blood Count 3.71 MIL/MM3 Hemoglobin 9.9 GM/DL Hematocrit 31.0 % Mean Corpuscular Volume 83.7 FL Mean Corpuscular Hemoglobin 26.7 PG Mean Corpuscular Hemoglobin 31.9 % Concent Red Cell Distribution Width 18.1 % Platelet Count 111 TH/MM3 Mean Platelet Volume 11.1 FL Neutrophils (%) (Auto) 79.1 % Lymphocytes (%) (Auto) 12.6 % Monocytes (%) (Auto) 6.8 % Eosinophils (%) (Auto) 1.3 % Basophils (%) (Auto) 0.2 % Neutrophils # (Auto) 11.4 TH/MM3 Lymphocytes # (Auto) 1.8 TH/MM3 Monocytes # (Auto) 1.0 TH/MM3 Eosinophils # (Auto) 0.2 TH/MM3 Basophils # (Auto) 0.0 TH/MM3 CBC Comment DIFF FINAL Differential Comment Prothrombin Time 11.2 SEC Prothromb Time International 1.0 RATIO Ratio Activated Partial 30.3 SEC Thromboplast Time Sodium Level 139 MEQ/L Potassium Level 4.3 MEQ/L Chloride Level 107 MEQ/L Carbon Dioxide Level 24.0 MEQ/L Anion Gap 8 MEQ/L Blood Urea Nitrogen 19 MG/DL Creatinine 1.15 MG/DL Estimat Glomerular Filtration 57 ML/MIN Rate Random Glucose 150 MG/DL Calcium Level 8.1 MG/DL Phosphorus Level 2.8 MG/DL Magnesium Level 1.8 MG/DL Total Bilirubin 0.9 MG/DL Aspartate Amino Transf 75 U/L (AST/SGOT) Alanine Aminotransferase 52 U/L (ALT/SGPT) Alkaline Phosphatase 157 U/L Total Creatine Kinase 63 U/L Troponin I 0.04 NG/ML Total Protein 7.5 GM/DL Albumin 2.0 GM/DL Lipase 593 U/L Lactic Acid Level 1.6 mmol/L Urine Color YELLOW Urine Turbidity HAZY Urine pH 5.5 Urine Specific [place] 1.014 Urine Protein 30 mg/dL Urine Glucose (UA) NEG mg/dL Urine Ketones NEG mg/dL Urine Occult Blood NEG Urine Nitrite NEG Urine Bilirubin NEG Urine Urobilinogen LESS THAN 2.0 MG/DL Urine Leukocyte Esterase LARGE Urine RBC 1 /hpf Urine WBC 21 /hpf Urine WBC Clumps OCC Urine Squamous Epithelial 1 /hpf Cells Urine Bacteria FEW /hpf Urine Mucus FEW /lpf Urine Yeast with Hyphae FEW Urine Yeast (Budding) MOD Microscopic Urinalysis Comment CATH-CULTURE IND Test 07/08/16 18:01 Stool C. difficile Toxin (PCR) NEGATIVE Stl C. difficile Toxin PRESUMPTIVE Epiderm 027 NEGATIVE MDM Supervised Visit with [place]: Yes Narrative Course Patient placed on cardiac monitor technician. ECG obtained shows SVT. Patient given 20mg Cardizem with improvement of tachycardia to 90s, afib seen at this time. Patient returned to rapid rate and was given a second bolus of cardizem and started on a drip. Her tachypnea improved with improvement of her heart rate. She was given IVF, covered with broad spectrum antibiotics for possible pneumonia. CTA performed to rule out PE, shows no evidence of PE. Patient admitted for further management. Critical Care Narrative Aggregate critical care time was 40 minutes. Time to perform other separately billable procedures was not included in the critical care time. My time did not include minutes spent treating any other patients simultaneously or on activities that did not directly contribute to the patient's treatment. The services I provided to this patient were to treat and/or prevent clinically significant deterioration that could result in: Serious illness or I provided critical care services requiring my management, as noted below: Chart data review, documentation time, medication orders and management, vital sign assessments/reviewing monitor data, ordering and reviewing lab tests, ordering and interpreting/reviewing x-rays and diagnostic studies, care of the patient and discussion of the patient with the admitting physicians. Diagnosis Primary Impression: Atrial fibrillation with rapid ventricular response Additional Impression: Sepsis Qualified Code: A41.9 - Sepsis, due to unspecified organism Admitting Information Admitting Physician Requests: it Rand Barboza MD Jul 08, 2016 17:01
[2016-07-08 17:15] LABS: ANION GAP 8 MEQ/L (5-15); AST (GOT) 75 U/L (15-37); BLOOD UREA NITROGEN 19 MG/DL (7-18); CHLORIDE 107 MEQ/L (98-107); GLOMERULAR FILTRATION RATE 57 ML/MIN (>89); MAGNESIUM 1.8 MG/DL (1.5-2.5); POTASSIUM 4.3 MEQ/L (3.5-5.1); SODIUM (NA) 139 MEQ/L (136-145)
[2016-07-08 17:20] LABS: ALKALINE PHOSPHATASE 157 U/L (45-117); ALT (GPT) 52 U/L (10-53); TOTAL BILIRUBIN ADULT 0.9 MG/DL (0.2-1.0)
[2016-07-08 17:21] LABS: CREATINE KINASE 63 U/L (26-192)
--- NOTE | 2016-07-08 17:25 | RADRPT ---
EXAM DATE/TIME: 07/08/2016 16:33 [facility] COMPARISON: CHEST SINGLE AP, June 27, 2016, 23:27. INDICATIONS : Short of breath. MEDICAL HISTORY : None. SURGICAL HISTORY : None. ENCOUNTER: Subsequent ACUITY: 1 day PAIN SCORE: Non-responsive. LOCATION: Bilateral chest FINDINGS: The heart size is normal. There is some mild patchy density identified at the left base. The right lung is grossly clear. Clips are seen over the left axillary region. There is some motion blurring seen throughout the study. CONCLUSION: Mild suspected atelectasis or consolidation at the left base. Kye Montiel MD on July 08, 2016 at 17:21 Board Certified Radiologist. This report was verified electronically.
[2016-07-08] MEDS ORDERED: IOHEXOL 350 MG/ML 10 ML VIAL (for RAD DIAG) IV ONE (18:29)
[2016-07-08 18:49] LABS: BACTERIA, URINE FEW /hpf; BLOOD, URINE NEG (NEG); GLUCOSE,URINE NEG (NEG); KETONE, URINE NEG (NEG); MUCUS URINE FEW /lpf (OCC); NITRITE,URINE NEG (NEG); PH, URINE 5.5 (5.0-8.5); SQUAMOUS EPITHELIAL CELL URINE 1 /hpf (0-5); URINE COLOR YELLOW (YELLW/STRAW)
[2016-07-08 18:51] LABS: COMMENT (UR) CATH-CULTURE IND; CULTURE IF INDICATED CATH CULTURE IND
--- NOTE | 2016-07-08 18:56 | RADRPT ---
EXAM DATE/TIME: 07/08/2016 18:29 [facility] COMPARISON: CT ABDOMEN & PELVIS W CONTRAST, February 01, 2013, 6:37. INDICATIONS : Shortness of breath and abdomen pain. IV CONTRAST: 75 cc Omnipaque 350 (iohexol) IV ; Cumulative dose for multiple exams. RADIATION DOSE: 16.73 CTDIvol (mGy) MEDICAL HISTORY : Cardiovascular disease. Carcinoma, breast. Cirrhosis. SURGICAL HISTORY : None. ENCOUNTER: Initial ACUITY: 1 day PAIN SCALE: 0/10 LOCATION: Bilateral chest TECHNIQUE: Volumetric scanning of the chest was performed using a pulmonary embolism protocol MIP images were re constructed. Using automated exposure control and adjustment of the mA and/or kV according to patien t size, radiation dose was kept as low as reasonably achievable to obtain optimal diagnostic quality images. FINDINGS: PULMONARY ARTERIES: Limited study from motion artifact but no definite PE demonstrated in the main pulmonary arteries. LUNGS: Limited study due to motion artifact. There is some mild bibasilar infiltrates. The upper lung garcia appear to be grossly clear. PLEURAE: There is no pleural thickening or pleural effusion. MEDIASTINUM: There is good visualization of the great vessels of the middle mediastinum. No evidence of mediastin al or hilar adenopathy/mass. MUSCULOSKELETAL: Within normal limits for patient age. MISCELLANEOUS: The visualized upper abdominal organs demonstrate no acute abnormality. CONCLUSION: 1. Limited study from motion artifact. No definite PE in the main pulmonary arteries. 2. Mild bibasilar infiltrates. Edilson Solis MD on July 08, 2016 at 18:50 Board Certified Radiologist. This report was verified electronically.
--- NOTE | 2016-07-08 19:06 | RADRPT ---
EXAM DATE/TIME: 07/08/2016 18:29 [facility] COMPARISON: CT ABDOMEN & PELVIS W CONTRAST, February 01, 2013, 6:37. INDICATIONS : Shortness of breath and abdomen pain. IV CONTRAST: 75 cc Omnipaque 350 (iohexol) IV ; Cumulative dose for multiple exams. ORAL CONTRAST: No oral contrast ingested. RADIATION DOSE: 22.13 CTDIvol (mGy) MEDICAL HISTORY : Carcinoma, breast. Cardiovascular disease Cirrhosis. SURGICAL HISTORY : None. ENCOUNTER: Initial ACUITY: 1 day PAIN SCALE: Non-responsive LOCATION: Bilateral abdomen. TECHNIQUE: Volumetric scanning of the abdomen and pelvis was performed. Using automated exposure control and ad justment of the mA and/or kV according to patient size, radiation dose was kept as low as reasonably achievable to obtain optimal diagnostic quality images. FINDINGS: LOWER LUNGS: Bibasilar atelectasis. LIVER: Liver is somewhat heterogeneous suggestive of a slightly disease. This is stable compared to the prio r study. No dilated biliary ducts. Gallbladder is unremarkable. SPLEEN: Normal size without lesion. PANCREAS: There is a stable well defined cystic mass in the proximal body the pancreas measuring 3.9 cm. This i s not significantly changed compared to 2012. The rest of the pancreas is also stable. KIDNEYS: No hydronephrosis. The right kidney smaller than the left but this is stable compared to the prior st . The kidneys are functioning. ADRENAL GLANDS: Mild stable prominence of the left adrenal gland. Right adrenal gland is unremarkable. VASCULAR: There is no aortic aneurysm. Atherosclerotic changes. BOWEL/MESENTERY: The stomach, small bowel, and colon demonstrate no acute abnormality. There is no free intraperitone al air. There is a small amount of free fluid deep in the pelvis. ABDOMINAL WALL: Within normal limits. RETROPERITONEUM: There is no lymphadenopathy. BLADDER: Rosales catheter. REPRODUCTIVE: Within normal limits. INGUINAL: There is no lymphadenopathy or hernia. MUSCULOSKELETAL: Within normal limits for patient age. CONCLUSION: 1. Bibasilar atelectasis. 2. Stable cystic mass involving the proximal body of the pancreas. No significant change compared to 2012. 3. Small amount of free fluid in the pelvis. 4. Hepatocellular disease of the liver which appears to be stable. 5. No new or significant changes. Edilson Solis MD on July 08, 2016 at 19:00 Board Certified Radiologist. This report was verified electronically.
[2016-07-08] MEDS ORDERED: AZTREONAM INJ 2,000 MG in SODIUM CHLORIDE 0.9% INJ 100 ML IV SCH (20:15)
[2016-07-08] MEDS ORDERED: AZITHROMYCIN 250 MG TAB PO SCH (20:15)
[2016-07-08] MEDS ORDERED: Vancomycin Consult Pharmacy 1 EA OTHER SCH (20:15)
[2016-07-08] MEDS ORDERED: PIPERACIL-TAZO 4.5 GM PREMIX 100 ML IV SCH (20:15)
[2016-07-08] MEDS ORDERED: NALOXONE HCL 0.4 MG/ML AMP IV PRN (20:15)
[2016-07-08] MEDS ORDERED: cefTRIAXone INJ 2,000 MG in SODIUM CHLORIDE 0.9% INJ 100 ML IV SCH (20:15)
[2016-07-08] MEDS ORDERED: AZITHROMYCIN INJ 500 MG in SODIUM CHLOR 0.9% 250 ML INJ 250 ML IV SCH (20:15)
[2016-07-08] MEDS ORDERED: LEVOFLOXACIN 750 MG TAB PO SCH (20:15)
[2016-07-08] MEDS ORDERED: ACETAMINOPHEN 325 MG TAB PO PRN (20:15)
[2016-07-08] MEDS ORDERED: SODIUM CHLORIDE 0.9% FLUSH 5 ML FLUSH FLUSH PRN (20:15)
[2016-07-08] MEDS ORDERED: LEVOFLOXACIN 750 MG PREMIX INJ 150 ML IV SCH (20:15)
[2016-07-08] MEDS: cloNIDine HCL 0.1 MG TAB PO SCH (21:00)
[2016-07-08] MEDS: SODIUM CHLORIDE 0.9% FLUSH 5 ML FLUSH FLUSH SCH (21:00)
[2016-07-08] MEDS ORDERED: VANCOMYCIN INJ 1,000 MG in SODIUM CHLOR 0.9% 250 ML INJ 250 ML IV ONE ×4 (21:00)
[2016-07-08 22:17] LABS: C. DIFF EPI 027 PRESUMPTIVE NEGATIVE (NEGATIVE); C. DIFF TOXIN PCR NEGATIVE (NEGATIVE)
[2016-07-08] MEDS: SODIUM CHLOR 0.9% 1000 ML INJ 1,000 ML IV SCH (22:31)
[2016-07-08] MEDS: PIPERACIL-TAZO 4.5 GM PREMIX 100 ML IV SCH (22:32)
[2016-07-08] MEDS: levETIRAcetam 500 MG/5 ML UDC PO SCH ×2 (22:32)
[2016-07-08] MEDS: HEPARIN SODIUM - SQ 10,000 UNITS/ML VIAL SQ SCH (22:33)
[2016-07-08] MEDS: AZITHROMYCIN INJ 500 MG in SODIUM CHLOR 0.9% 250 ML INJ 250 ML IV SCH (23:18)
[2016-07-09] VITALS (10 sets, daily range): BP systolic 115–143; BP diastolic 57–65; PULSE 73–107; RESP 18–32; TEMP 97.6–98.8; O2SAT 97–100
[2016-07-09] MEDS: PIPERACIL-TAZO 4.5 GM PREMIX 100 ML IV SCH ×4 (03:14→21:25)
[2016-07-09] MEDS: RESP: ALBUTEROL 2.5 MG/IPRATROPIUM 0.5 MG NEB (PRN) NEB (04:59)
[2016-07-09] MEDS: SODIUM CHLOR 0.9% 1000 ML INJ 1,000 ML IV SCH ×3 (07:38→21:33)
[2016-07-09 08:14] LABS: POTASSIUM 4.6 MEQ/L (3.5-5.1)
[2016-07-09] MEDS: SODIUM CHLORIDE 0.9% FLUSH 5 ML FLUSH FLUSH SCH ×2 (09:00→21:00)
[2016-07-09 09:06] LABS: BLOOD GAS VENOUS BASE EXCESS -3.3 mmol/L (-2-2); BLOOD GAS VENOUS HCO3 23 mmol/L (22-26); BLOOD GAS VENOUS O2 CONTENT 7.4 Vol % (9.0-17.0); BLOOD GAS VENOUS O2 HGB SAT 41 % (70-76); BLOOD GAS VENOUS PCO2 52 mmHg (44-48); BLOOD GAS VENOUS PO2 30 mmHg (35-40); BLOOD GAS VENOUS pH 7.26 (7.360-7.400); TEMP CORR TO 98.6
[2016-07-09 09:08] LABS: CRITICAL VALUE YES; FIO2 36 %; LITER FLOW 4 L/M; OXYGEN DEVICE NASAL CANNULA
[2016-07-09 09:09] LABS: DRAW SITE PERIPHERAL; STAT YES
[2016-07-09 10:20] LABS: HEMATOCRIT 26.5 % (35.0-46.0); MEAN CELL VOLUME 84.7 FL (80.0-100.0); MEAN CORPUSCULAR HEMOGLOBIN 27.2 PG (27.0-34.0); MEAN CORPUSCULAR HGB CONC 32.1 % (32.0-36.0); PLATELET COUNT 95 TH/MM3 (150-450); RED BLOOD COUNT 3.13 MIL/MM3 (4.00-5.30); RED CELL DISTRIBUTION WIDTH 18.5 % (11.6-17.2); WHITE BLOOD COUNT 12.6 TH/MM3 (4.0-11.0)
[2016-07-09 10:26] LABS: HEMO FLAGS AUTO DIFF
[2016-07-09] MEDS: cloNIDine HCL 0.1 MG TAB PO SCH ×2 (10:41→21:26)
[2016-07-09] MEDS: levETIRAcetam 500 MG/5 ML UDC PO SCH ×3 (10:41→21:25)
[2016-07-09] MEDS: LISINOPRIL 20 MG TAB PO SCH (10:41)
[2016-07-09] MEDS: HEPARIN SODIUM - SQ 10,000 UNITS/ML VIAL SQ SCH ×2 (10:42→21:26)
[2016-07-09 12:05] LABS: BANDS 8 % (0-6); EOSINOPHILS 2 % (0-4); POLYS (SEG NEUTROPHILS) 71 % (16-70); WBC DIFF SAMPLE 100
[2016-07-09 12:07] LABS: PLATELET ESTIMATE SMEAR LOW (NORMAL); PLATELET MORPHOLOGY ENLARGED (NORMAL); SCAN/DIFF FINAL DIFF MANUAL
[2016-07-09] MEDS: METOPROLOL TARTRATE 25 MG TAB G-TUBE SCH ×2 (13:19→21:26)
[2016-07-09] MEDS: VANCOMYCIN INJ 1,250 MG in SODIUM CHLOR 0.9% 250 ML INJ 250 ML IV SCH (13:19)
[2016-07-09] MEDS: RESP: ALBUTEROL 2.5 MG/IPRATROPIUM 0.5 MG NEB (SCH) NEB ×2 (13:27→19:36)
--- NOTE | 2016-07-09 13:48 | MH ---
cc: MARISOL FERREIRA MD DATE OF ADMISSION: 07/08/2016 CHIEF COMPLAINT The patient was sent to the ER from the nursing facility for evaluation of shortness of breath. HISTORY OF PRESENT ILLNESS This is an unfortunate 70-year-old -[place] female who was has a recent hospitalization for respiratory failure, pneumonia and possible COPD exacerbation. 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 She is essentially nonverbal, has a history of depression and COPD. She apparently developed some discomfort in the upper abdomen/lower chest along with shortness of breath and she was sent to the ER for evaluation. The history is very limited as she is not able to provide any meaningful information. She tries to mouth words and shakes and nods her head. Upon arrival she was noted to be somewhat tachycardic initial heart rate was in the 160s. She was diagnosed with PSVT, was given IV Cardizem along with IV fluids. CT of the chest was performed to rule out pulmonary embolism and that study was negative for PE, showed bibasilar atelectasis, somewhat limited due to motion artifact. Recommendation was given by the ER physician for the patient to be admitted to the hospital. PAST MEDICAL HISTORY 1. Hypertension. 2. 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 3. Oropharyngeal dysphagia. 4. History of depression. 5. History of breast cancer. 6. Recently treated for respiratory failure, pneumonia and sepsis. 7. History of pancreatic pseudocyst. 8. GERD. 9. Sleep apnea. 10.History of liver disease. PAST SURGICAL HISTORY 1. Mastectomy. 2. Endoscopies, fulguration of a Lorraine-Jaimes tear. 3. Previous PEG tube placement. SOCIAL HISTORY The patient currently is not smoking or drinking. She is a resident of a local nursing facility. She has her son and daughter's phone number listed in the system. ALLERGIES ASPIRIN. MEDICATIONS Home medications: 1. Lisinopril 20 mg daily. 2. Keppra 500 mg at bedtime and 250 mg twice daily. 3. Clonidine 0.1 mg daily. 4. Tylenol p.r.n. FAMILY HISTORY A family history is not available. REVIEW OF SYSTEMS The review of systems is very limited as the patient is not able to provide any meaningful information. I tried calling the patient's son. Both numbers in the chart turned out to be wrong numbers. I called her daughter and that also was a wrong number. PHYSICAL EXAMINATION GENERAL: A middle-age, obese -[place] female lying in bed, slightly tachypneic. She is awake and alert. She answers simple questions, nodding and shaking. She mouths words. She tracks with her eyes and turns her head. VITAL SIGNS: Upon arrival blood pressure was 116/64, pulse 160, respirations 45, temperature 99.1. Her most recent vital signs are blood pressure 139/59, pulse 94, respirations 18, temperature 97.6. She has been afebrile. HEAD: Normocephalic, atraumatic. EYES: Extraocular movements intact. Pupils are equal and reactive. The patient has pallor. No icterus. EARS: Clear. ORAL: Dry oral mucosa. No thrush. Poor dentition. NECK: Supple. No JVD. CARDIOVASCULAR: S1, S2 audible. Slightly tachycardic, irregular rhythm. No murmur appreciated. PULMONARY: Good bilateral air entry. Faint basilar crackles. No rhonchi. ABDOMEN: Soft, protuberant. The patient has mild upper abdominal tenderness. No voluntary guarding. No rebound tenderness. PEG tube is in place. PEG site appears okay. : Rosales catheter is in place. EXTREMITIES: No pedal edema. Feet are warm to touch NEUROLOGIC: She is awake. She is responsive. She mouths words. Otherwise mostly nonverbal. Occasionally can get out simple words. She has dense right hemiplegia. Both right upper and right lower extremities are flaccid. LABORATORY DATA White count 14.4, hemoglobin 9.9, hematocrit 31.0, platelet count 111. Repeat CBC today shows white count 12.6, platelet count 95, hemoglobin 8.5, hematocrit 6.5. 57% neutrophils, and 8% bands. Sodium 139, potassium 4.3, chloride 107, bicarb 24, BUN 19, creatinine 1.17, glucose 130, calcium 8.1. LFTs show ALT 1000, AST 73, ALK 52, total protein 7.4, albumin 2.0, lipase 593. Repeat BUN 20, creatinine 1.08 today. PT 11.2, INR 1.0, PTT 30.3. ABG shows pH 7.26, PCO2 52, PO2 30, O2 sat 41%. This is a venous blood gas on four liters nasal cannula, so oxygenation is unreliable. Urinalysis: Urine pH 5.5, specific gravity 1.014, leukocyte esterase large, wbc's 21, bacteria few. C. difficile testing was negative. Influenza A and B antigens were negative. Blood cultures were taken. IMAGING DATA Chest x-ray showed atelectasis at the left base versus early consolidation. CTA of the chest was done, a limited study, but did not reveal any evidence of pulmonary embolism/in the main pulmonary arteries. Mild bibasilar infiltrates were seen. CT scan of the abdomen and pelvis showed bibasilar atelectasis, stable cystic mass involving the proximal body of the pancreas not significantly changed. Small amount of free fluid in the pelvis. Hepatocellular disease of the liver. No new changes are seen. ASSESSMENT 1. Shortness of breath, tachypnea and tachycardia, etiology unclear, recurrent infection, possible early pneumonia, rule out aspiration. Large pulmonary emboli have been ruled out. 2.Lower chest/upper abdominal pain, elevated lipase, possible pancreatitis. This could be causing tachycardia and tachypnea. 3. Respiratory alkalosis. 4. Hypertension. 5. History of dense CVA with right hemiplegia. 6. History of liver disease. 7. History of depression. 8. History of seizure disorder. 9. Recent respiratory failure and pneumonia. 10.Poor performance status. 11.Severe protein calorie malnutrition. 12.Chronic kidney disease, stage II. 13.History of breast cancer. PLAN 1. The patient is admitted to the hospital. 2. Will give her IV fluids. 3. No food by mouth as she has severe oropharyngeal dysphagia. 4. Check BNP to rule out CHF. Clinically she is not showing signs of congestive heart failure. 5. Repeat troponin to exclude angina or OK. She is unable to explain symptoms which makes it very difficult to establish a good diagnosis. 6. Control blood pressure. 7. Obtain GI consultation. 8. Continue Keppra. 9. Will put her on a PPI. 10.IV analgesics p.r.n. 11.Will consult the palliative care team to further define the patient's goal of care. 12.Consider starting tube feeding. 13.SCDs for DVT prophylaxis. 14.Provide supportive care. The patient's overall health is very poor. Her performance status is very low. She is bedridden. She is aphasic with severe oropharyngeal dysphagia, dependent for her care. We will try to reach out to the family to determine the overall goal of care. The patient meets inpatient criteria. Without appropriate treatment she may develop severe pancreatitis or recurrent sepsis , multiorgan failure & respiratory failure. Expected length of stay is about 4-5 days. Possible discharge back to the snf when stable. MD NICK Eng/CECILE /12:28 PM /12:51 PM [id number]
[2016-07-09] MEDS ORDERED: VANCOMYCIN INJ 1,100 MG in SODIUM CHLOR 0.9% 250 ML INJ 250 ML IV SCH (15:00)
--- NOTE | 2016-07-09 15:55 | PD.CONS ---
Consult Service Palliative Care Consult Requested By Dr. Kalpesh MD. Primary Care Physician Unknown Reason for Consultation a. To assist with evaluation and management of symptoms including: debility and shortness of breath. b. To assist medical decision maker(s) with: better understanding of current medical conditions; weighing benefits/burdens of medical treatment options; making medical treatment decisions. . HPI History of Present Illness Mrs. Childress is a 70-year-old female with a medical history significant of left MCA stroke with right-sided hemiparesis, COPD, schizoaffective disorder, dementia, history of of intracranial aneurysm bleed, hypertension, seizure disorder, liver cirrhosis who is a long-term resident at [facility] and rehabilitation for the past 5 years. Patient presented to the ED on 07/09/16 with complaints of shortness of breath. Upon ED arrival, patient was tachypneic and tachycardic with heart rate in the 160s. Patient was given 2 doses of Cardizem bolus, and was subsequently placed on a Cardizem drip. WBC 14.4, hemoglobin 9.9, platelet count 111. Sodium 139, potassium 4.3, BUN/ creatinine 19/1.15. Lactic acid 1.6. BNP 275. UA negative for nitrates, large leukocytes. Pending urine culture. C. difficile PCR negative. CT of the abdomen and pelvis showing hypervascular atelectasis. Stable cyst mass involving the proximal body of the pancreas. Hepatocellular disease of the liver which appears to be stable. No other new or acute process found. CTA of the chest with limited results secondary to motion artifact. Appears negative for PE. Chest x-ray showing mild atelectasis or consolidation at the left base. Sepsis protocol initiated and patient was admitted for further management. GI has been consulted to evaluate for possible pancreatitis. Palliative care has been consulted for further clarifications of goals of care given patient's prolonged recent hospitalization, progressive decline and current clinical condition. Reviewed prior medical records. Recent prior hospitalization from 06/17/16 to 03/14 secondary to altered mental status and new left facial droop. At that time CT of head showed no acute findings by large old left MCA stroke. Patient was emergently intubated for a week protection secondary to worsening mental status. Patient was extubated after 6 days. Her clinical course was complicated by dysphagia status post PEG tube placement on 06/28/16, urosepsis, electrolyte imbalance, encephalopathy, respiratory distress requiring intubation and mechanical ventilation, anemia chronic disease and diarrhea. Patient was discharge on 07/06/16 to [facility]. Patient seen in her room, she was laying in bed in no acute distress. Opening eyes to verbal stimuli. Following some simple commands. nodding head to "yes/ no" questions. Right-sided hemiparesis with right leg contraction and bilateral foot drops. Patient a phasic, denies pain, shortness of breath or discomfort. No family at bedside. Telephone call to patient's daughter Cat Childress at number listed on the medical records. That number is incorrect. [facility] and obtained updated contact information. Limited telephone conversation as Cat was at work at the time of my call. Cat tells me that patient's original stroke was in 2011 resulting in severe neurological deficits/right-sided hemiparesis. Patient has been residing at [facility] since 2011. Patient is , her in 2017 secondary to prostate cancer. She has 3 children, 2 brothers and Cat. 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 No healthcare surrogate designation or living will has been completed. Reviewed events leading to these hospitalization and current medical management. Reviewed prior hospitalizations and clinical complications. Cat tells me that family is goals of treatment at this time is to continue aggressive care with the hopes of returning patient to long-term facility. Discussed risks, benefits and limitations of CPR, intubation and mechanical ventilation given patient's bedbound state and neurological deficit secondary to CVA. Family electing for continuation of full code at this time. Palliative care contact information has been provided. Daughter Cat agreed to meet with palliative care in order to continue goals of care conversation. . Function/Cognitive Trajectory History of large MCA stroke in 2011 resulting in neurological deficit/right sided hemiparesis. Patient bedbound/total care residing at [facility] for the past 5 years. Chronic dysphagia status post PEG tube placement, removal and placement again in 06/28/16. Cognitive decline secondary to CVA, history of dementia and schizoaffective disorder. Patient aphasic, following some simple commands and answering simple questions. . Review of Systems ROS Limitations: Speech Impaired, Poor Historian Constitutional: DENIES: Fever, Change in appetite, Pain Endocrine: DENIES: Heat/cold intolerance Respiratory: COMPLAINS OF: Shortness of breath Cardiovascular: COMPLAINS OF: Chest pain, DENIES: Lower Extremity Edema Gastrointestinal: COMPLAINS OF: Abdominal pain, Diarrhea, DENIES: Vomiting Genitourinary: COMPLAINS OF: Urinary incontinence Musculoskeletal: COMPLAINS OF: Decreased range of motion Hematologic/Lymphatics: DENIES: Bruising Immunologic/Allergic: DENIES: Eczema Psychiatric: COMPLAINS OF: Anxiety, Depression Other ROS: Limited ROS secondary to clinical condition. Patient aphasic, with history of dementia. ROS obtained from patient, daughter catheter remain, medical records and clinical observation. Past Family Social History Coded Allergies: Aspirin (Verified Allergy, Severe, 06/17/16) *MDRO Multi-Drug Resistant Organism (Verified Adverse Reaction, Unknown, Cleared 05/2016, 06/26/16) MRSA (wound & sputum) - 01/2012 *Cleared - MRSA PCR (nares) NEGATIVE on 06/18/16 & 06/25/16* Past Medical History Brain aneurysm and intracranial bleed in January 2012 Previous left MCA stroke Asthma Dementia COPD Chronic right hemiplegia Hypertension History of GI bleed Sleep apnea Breast cancer, s/p mastectomy in 2011 Seizure disorder History of CHF Dysphagia with PEG tube placement Liver cirrhosis Schizoaffective disorder Anxiety and depression . Past Surgical History Upper endoscopies Mastectomy for breast cancer in 2011 PEG tube placement and subsequent removal PEG tube placement in 06/28/16 . Reported Medications Lisinopril 20 mg daily Keppra 250 mg twice a day Keppra 500 mg at bedtime Clonidine 0.1 mg daily Tylenol when necessary . Current Medications Medications (Trade) Dose Ordered Sig/Sharmila Route Start Time Stop Time Status Last Admin (Cardizem Inj/NS Inj) 125 ml @ 0 mls/hr TITRATE IV 07/08/16 16:15 (Catapres) 0.1 mg BID PO 07/08/16 21:00 07/09/16 10:41 (Keppra Liq) 500 mg HS PO 07/08/16 21:00 07/08/16 22:32 (Keppra Liq) 250 mg BID PO 07/08/16 21:00 07/09/16 10:41 (Prinivil) 20 mg DAILY PO 07/09/16 09:00 07/09/16 10:41 (NS Flush) 2 ml UNSCH PRN FLUSH 07/08/16 20:15 (NS Flush) 2 ml BID FLUSH 07/08/16 21:00 (Tylenol) 650 mg Q4H PRN PO 07/08/16 20:15 (Zofran Inj) 4 mg Q6H PRN IVP 07/08/16 20:15 (Heparin Inj) 5,000 units Q12H SQ 07/08/16 21:00 07/09/16 10:42 Naloxone HCl 0.4 mg 0.4 mg UNSCH PRN IV 07/08/16 20:15 Azithromycin 500 mg/Sodium Chloride 250 ml @ 250 mls/hr Q24H IV 07/08/16 22:00 07/08/16 23:18 Pharmacy Profile Note 0 ml @ 0 mls/hr UNSCH OTHER 07/08/16 20:15 Piperacillin Sod/ Tazobactam Sod 100 ml @ 200 mls/hr Q6H IV 07/08/16 21:00 07/09/16 10:41 (Vancomycin Inj/ NS 250 ml Inj) 262.5 ml @ 250 mls/hr Q18H IV 07/09/16 12:00 07/09/16 13:19 Miscellaneous Information SPECIFIC LAB TO BE DRAWN:VANCOMYCIN TROUGH DATE TO... ONCE ONCE XX 07/10/16 23:45 07/10/16 23:46 Metoprolol Tartrate 25 mg 25 mg Q12HR G-TUBE 07/09/16 12:30 07/09/16 13:19 (NS 1000 ml Inj) 1,000 ml @ 100 mls/hr Q10H IV 07/09/16 12:30 07/09/16 13:06 Family History Unable to obtain family history from patient secondary to clinical condition. Daughter Cat unable to provide information. Patient has 3 children who are alive and well. . Substance Use Tobacco: None reported. Alcohol: None reported. Prescription med abuse: None reported. Illicits: None reported. . Psychosocial History Patient is a long-term resident at [address] and rehabilitation since it doesn 't until secondary to large MCA stroke with right-sided hemiparesis. Patient is , her in 2006 secondary to prostate cancer. She has 3 children, Cat and 2 sons. . Spiritual/Cultural Factors Rastafari. . Living Will: Never completed Health Care Surrogate: Never completed Durable Power of Long Filler Cigar Roller Machine: Copy in medical record Date completed: General power of bag machine operator completed on August 22, 2010. . Health Care Surrogate(s): As per daughter, no living will or healthcare surrogate designation has been completed. As per [place] statute, all 3 of patient's children would be healthcare decision-maker's. . Documented care wishes: No living will has been completed. . Family/friends goals: Continuation of aggressive care to include CPR, intubation and mechanical ventilation if medically indicated. Family hoping for clinical improvement with the goal of returning patient to long-term facility. . Ethical and Legal Issues No living will has been completed. . Physical Exam Vital Signs Date Time Temp Pulse Resp B/P Pulse Ox O2 Delivery O2 Flow Rate FiO2 07/09/16 13:28 97 Nasal Cannula 2.00 07/09/16 12:00 98.8 87 22 143/65 98 07/09/16 08:00 97.6 94 18 131/59 98 07/09/16 05:04 99 Nasal Cannula 2.00 07/09/16 04:03 98.2 102 32 136/60 100 07/09/16 01:06 107 07/09/16 01:06 107 07/08/16 23:50 97.9 108 36 123/68 98 07/08/16 22:35 110 20 134/68 Nasal Cannula 2 98 07/08/16 19:57 111 22 158/65 100 Nasal Cannula 2 07/08/16 18:47 33 97 Nasal Cannula 4 07/08/16 18:47 97 Nasal Cannula 4.00 07/08/16 17:01 129 45 159/73 98 Nasal Cannula 4 07/08/16 16:59 96 Nasal Cannula 4 07/08/16 16:59 96 Nasal Cannula 4 07/08/16 16:19 97 40 155/101 100 4 07/08/16 15:56 99.1 160 45 116/64 96 07/08/16 07/09/16 19:00 07:00 Intake Total 1175 ml Output Total 800 ml Balance 375 ml Intake IV Total 175 ml Other 1000 ml Output Urine Total 800 ml Exam CONSTITUTIONAL/GENERAL: This is an elderly female laying in bed in no acute distress. She appears older than stated age. TUBES/LINES/DRAINS: PIV's, Rosales catheter, bilateral wrist restraints. SKIN: No jaundice, rashes, or lesions. No wounds seen anteriorly. Skin temperature appropriate. Not diaphoretic. HEAD: Atraumatic. Normocephalic. EYES: Pupils equal and round and reactive. No scleral icterus. No injection or drainage. ENT: Hearing appears grossly normal. Nose without bleeding or purulent drainage. Edentulous. NECK: Trachea midline. Supple. CARDIOVASCULAR: Irregular rate and rhythm without murmurs, gallops, or rubs. Peripheral pulses symmetric. RESPIRATORY/CHEST: Symmetric, unlabored respirations. Faint crackles. O2 via nasal cannula. GASTROINTESTINAL: Abdomen soft, non-tender, nondistended. No guarding. Bowel sounds present. PEG tube in place, site clean. GENITOURINARY: Without palpable bladder distension. Rosales catheter in place. Urine amount of yellow output and Rosales bag. MUSCULOSKELETAL: Extremities without clubbing cyanosis. Muscle wasting to bilateral lower extremities. Right leg appears contracted. Bilateral foot drop. NEUROLOGICAL: Awake. Alert, opening eyes to verbal stimuli. Following some simple commands and answering to "yes/no" questions. PSYCHIATRIC: Unable to assess secondary to clinical condition. Appears calm. . Diagnostic Tests Laboratory Laboratory Tests Test 07/08/16 07/08/16 07/08/16 07/08/16 16:00 16:23 16:33 17:45 Blood Gas Puncture Site PERIPHERAL Blood Gas Patient Temperature 98.6 Venous Blood pH 7.26 (7.360-7.400) Venous Blood Partial Pressure 52 mmHg (44-48) CO2 Venous Blood Partial Pressure 30 mmHg (35-40) O2 Venous Blood HCO3 23 mmol/L (22-26) Venous Blood Oxygen Saturation 41 % (70-76) Venous Blood Oxygen Content 7.4 Vol % (9.0-17.0) Venous Blood Base Excess -3.3 mmol/L (-2-2) Oxygen Delivery Device NASAL CANNULA Blood Gas Liter Flow 4 L/M Blood Gas Inspired Oxygen 36 % White Blood Count 14.4 TH/MM3 (4.0-11.0) Red Blood Count 3.71 MIL/MM3 (4.00-5.30) Hemoglobin 9.9 GM/DL (11.6-15.3) Hematocrit 31.0 % (35.0-46.0) Mean Corpuscular Volume 83.7 FL (80.0-100.0) Mean Corpuscular Hemoglobin 26.7 PG (27.0-34.0) Mean Corpuscular Hemoglobin 31.9 % Concent (32.0-36.0) Red Cell Distribution Width 18.1 % (11.6-17.2) Platelet Count 111 TH/MM3 (150-450) Mean Platelet Volume 11.1 FL (7.0-11.0) Neutrophils (%) (Auto) 79.1 % (16.0-70.0) Lymphocytes (%) (Auto) 12.6 % (9.0-44.0) Monocytes (%) (Auto) 6.8 % (0.0-8.0) Eosinophils (%) (Auto) 1.3 % (0.0-4.0) Basophils (%) (Auto) 0.2 % (0.0-2.0) Neutrophils # (Auto) 11.4 TH/MM3 (1.8-7.7) Lymphocytes # (Auto) 1.8 TH/MM3 (1.0-4.8) Monocytes # (Auto) 1.0 TH/MM3 (0-0.9) Eosinophils # (Auto) 0.2 TH/MM3 (0-0.4) Basophils # (Auto) 0.0 TH/MM3 (0-0.2) CBC Comment DIFF FINAL Differential Comment Prothrombin Time 11.2 SEC (9.8-11.6) Prothromb Time International 1.0 RATIO Ratio Activated Partial 30.3 SEC Thromboplast Time (24.3-30.1) Sodium Level 139 MEQ/L (136-145) Potassium Level 4.3 MEQ/L (3.5-5.1) Chloride Level 107 MEQ/L (98-107) Carbon Dioxide Level 24.0 MEQ/L (21.0-32.0) Anion Gap 8 MEQ/L (5-15) Blood Urea Nitrogen 19 MG/DL (7-18) Creatinine 1.15 MG/DL (0.50-1.00) Estimat Glomerular Filtration 57 ML/MIN (>89) Rate Random Glucose 150 MG/DL (74-106) Calcium Level 8.1 MG/DL (8.5-10.1) Phosphorus Level 2.8 MG/DL (2.5-4.9) Magnesium Level 1.8 MG/DL (1.5-2.5) Total Bilirubin 0.9 MG/DL (0.2-1.0) Aspartate Amino Transf 75 U/L (15-37) (AST/SGOT) Alanine Aminotransferase 52 U/L (10-53) (ALT/SGPT) Alkaline Phosphatase 157 U/L (45-117) Total Creatine Kinase 63 U/L (26-192) Troponin I 0.04 NG/ML (0.02-0.05) Total Protein 7.5 GM/DL (6.4-8.2) Albumin 2.0 GM/DL (3.4-5.0) Lipase 593 U/L (73-393) Lactic Acid Level 1.6 mmol/L (0.4-2.0) Urine Color YELLOW (YELLW/STRAW) Urine Turbidity HAZY (CLEAR) Urine pH 5.5 (5.0-8.5) Urine Specific [place] 1.014 (1.002-1.035) Urine Protein 30 mg/dL (NEG-TRACE) Urine Glucose (UA) NEG mg/dL (NEG) Urine Ketones NEG mg/dL (NEG) Urine Occult Blood NEG (NEG) Urine Nitrite NEG (NEG) Urine Bilirubin NEG (NEG) Urine Urobilinogen LESS THAN 2.0 MG/DL (LESS THAN 2.0) Urine Leukocyte Esterase LARGE (NEG) Urine RBC 1 /hpf (0-3) Urine WBC 21 /hpf (0-5) Urine WBC Clumps OCC (NONE) Urine Squamous Epithelial 1 /hpf (0-5) Cells Urine Bacteria FEW /hpf (NONE) Urine Mucus FEW /lpf (OCC) Urine Yeast with Hyphae FEW (NONE) Urine Yeast (Budding) MOD (NONE) Microscopic Urinalysis Comment CATH-CULTURE IND Test 07/08/16 07/08/16 07/09/16 07/09/16 18:01 22:15 07:33 09:55 Stool C. difficile Toxin (PCR) NEGATIVE (NEGATIVE) Stl C. difficile Toxin PRESUMPTIVE Epiderm 027 NEGATIVE (NEGATIVE) Lactic Acid Level 1.4 mmol/L (0.4-2.0) Sodium Level 145 MEQ/L (136-145) Potassium Level 4.6 MEQ/L (3.5-5.1) Chloride Level 114 MEQ/L (98-107) Carbon Dioxide Level 21.0 MEQ/L (21.0-32.0) Anion Gap 10 MEQ/L (5-15) Blood Urea Nitrogen 20 MG/DL (7-18) Creatinine 1.08 MG/DL (0.50-1.00) Estimat Glomerular Filtration 61 ML/MIN (>89) Rate Random Glucose 99 MG/DL (74-106) Calcium Level 8.0 MG/DL (8.5-10.1) Troponin I 0.05 NG/ML (0.02-0.05) Lipase 352 U/L (73-393) White Blood Count 12.6 TH/MM3 (4.0-11.0) Red Blood Count 3.13 MIL/MM3 (4.00-5.30) Hemoglobin 8.5 GM/DL (11.6-15.3) Hematocrit 26.5 % (35.0-46.0) Mean Corpuscular Volume 84.7 FL (80.0-100.0) Mean Corpuscular Hemoglobin 27.2 PG (27.0-34.0) Mean Corpuscular Hemoglobin 32.1 % Concent (32.0-36.0) Red Cell Distribution Width 18.5 % (11.6-17.2) Platelet Count 95 TH/MM3 (150-450) Mean Platelet Volume 11.0 FL (7.0-11.0) Neutrophils (%) (Auto) % (16.0-70.0) Lymphocytes (%) (Auto) % (9.0-44.0) Monocytes (%) (Auto) % (0.0-8.0) Eosinophils (%) (Auto) % (0.0-4.0) Basophils (%) (Auto) % (0.0-2.0) Neutrophils # (Auto) TH/MM3 (1.8-7.7) Lymphocytes # (Auto) TH/MM3 (1.0-4.8) Monocytes # (Auto) TH/MM3 (0-0.9) Eosinophils # (Auto) TH/MM3 (0-0.4) Basophils # (Auto) TH/MM3 (0-0.2) CBC Comment AUTO DIFF Differential Total Cells 100 Counted Neutrophils % (Manual) 71 % (16-70) Band Neutrophils % 8 % (0-6) Lymphocytes % 8 % (9-44) Monocytes % 11 % (0-8) Eosinophils % 2 % (0-4) Neutrophils # (Manual) 10.0 TH/MM3 (1.8-7.7) Differential Comment FINAL DIFF MANUAL Platelet Estimate LOW (NORMAL) Platelet Morphology Comment ENLARGED (NORMAL) B-Type Natriuretic Peptide 275 PG/ML (0-100) Result Diagram: 07/09/16 0955 07/09/16 0733 Microbiology Microbiology Date/Time Procedure Status Source Growth 07/08/16 16:28 Aerobic Blood Culture - Preliminary Resulted Blood Peripheral NO GROWTH IN 1 DAY 07/08/16 16:28 Anaerobic Blood Culture - Preliminary Resulted Blood Peripheral NO GROWTH IN 1 DAY 07/08/16 16:30 Aerobic Blood Culture - Preliminary Resulted Blood Peripheral NO GROWTH IN 1 DAY 07/08/16 16:30 Anaerobic Blood Culture - Preliminary Resulted Blood Peripheral NO GROWTH IN 1 DAY 07/08/16 17:45 Urine Culture - Preliminary Resulted Urine Catheterized Urine IMMATURE GROWTH - REINCUBATE 07/08/16 18:11 Influenza Types A,B Antigen (ZIGGY) - Final Complete Nasal Washing NEGATIVE FOR FLU A AND B ANTIGEN.... Imaging Last Impressions Chest X-Ray 07/08/16 1554 Signed Impressions: Service Date/Time: Friday, July 08, 2016 16:33 - CONCLUSION: Mild suspected atelectasis or consolidation at the left base. Kye Montiel MD CT Angiography 07/08/16 0000 Signed Impressions: Service Date/Time: Friday, July 08, 2016 18:29 - CONCLUSION: 1. Limited study from motion artifact. No definite PE in the main pulmonary arteries. 2. Mild bibasilar infiltrates. Edilson Solis MD Abdomen/Pelvis CT 07/08/16 0000 Signed Impressions: Service Date/Time: Friday, July 08, 2016 18:29 - CONCLUSION: 1. Bibasilar atelectasis. 2. Stable cystic mass involving the proximal body of the pancreas. No significant change compared to 2012. 3. Small amount of free fluid in the pelvis. 4. Hepatocellular disease of the liver which appears to be stable. 5. No new or significant changes. Edilson Solis MD Patient/Family Conference Present at Family Conference: Emy Shetlon Family Conference Time (mins): 32 Family Conference Location: Telephone Issues Discussed: * Palliative care role, purpose, approach * Additional medical, psychosocial, and spiritual history * Patients general health, functional status, and cognitive changes in the months leading up to the current hospitalization * Family understanding of the current medical problems * Family understanding of prognosis, to include high risk for further complications, continue decline and . * Patients goals of care as best understood from advance directives and/or conversations and/or values * Current medical treatment options and benefits/burdens of those options. CPR , intubation and mechanical ventilation discussed. * Questions answered to the best of my ability * Palliative care contact information provided . Assessment and Plan Disease Oriented Problem List: (1) CVA (cerebral vascular accident) (2) Respiratory distress (3) Tachycardia with heart rate 121-140 beats per minute Symptom Scale: (1) Shortness of breath 0-10 Scale: Unable to quantify Comment: Currently tolerating O2 via nasal cannula. (2) Debility 0-10 Scale: Unable to quantify Comment: Progressive secondary to CVA, bedbound state. Pertinent Non-Medical Issues Psychosocial: . Resident of long-term facility. Has 3 children. Spiritual: Rastafari. Legal: No living will completed. Ethical issues impacting care: No living will completed. . Important Contacts Emy Childress [phone]. . Prognosis Mrs. Childress is a 70-year-old female with a medical history significant of left MCA stroke with right-sided hemiparesis, COPD, schizoaffective disorder, dementia, history of of intracranial aneurysm bleed, hypertension, seizure disorder, liver cirrhosis who is a long-term resident at [facility] and rehabilitation for the past 5 years. Patient presented to the ED on 07/09/16 with complaints of shortness of breath and was admitted for further management. Recent prolonged hospitalization from 06/17/16 to 07/06/16 secondary to acute respiratory distress and urosepsis. At that time patient required intubation and mechanical ventilation. Patient is full care, bedbound with a PPS of 30%. Overall prognosis is poor for an improved quality of life given patient's age, bedbound state, neurological deficits, multiple comorbidities and acute events. Patient is a very high risk for further decline, complications and . . Code Status: Full Code Plan * CODE STATUS: Full code. Risks, benefits and limitations of CPR, intubation and mechanical ventilation discussed with emy Shelton given patient's bedbound state and neurological deficit secondary to CVA. Family electing for continuation of full code at this time. * HEALTHCARE DECISION-MAKING: Patient incapacitated secondary to clinical condition. As per daughter, no living will or healthcare surrogate designation has been completed. As per [place] statute, all 3 of patient's children would be healthcare decision-maker's. Power of bag machine operator in chart, which does not include medical decision maker. * GOALS OF CARE: Continuation of aggressive care to include CPR, intubation and mechanical ventilation if medically indicated. Family hoping for clinical improvement with the goal of returning patient to long-term facility. * SYMPTOMS: == Debility, secondary to CVA in 2012 with right-sided hemiparesis, bedbound state, recent prolonged hospitalization. Likely to continue worsening. == Shortness of breath, history of COPD, recent hospitalization complicated by acute respiratory failure requiring intubation and mechanical ventilation. Currently tolerating O2 via nasal cannula. * Palliative care contact information has been provided to patient's daughter. * Palliative care will continue to follow-up for further clarifications of goals of care as the clinical course evolves. . Time Spent Total Floor Time (mins): 85 (Total time to include review and summarization of available medical records to include prior hospitalizations, physical exam, and telephone conversation with patient's daughter. ) >50% Counseling/Coord of Care: Yes Thank you for the opportunity to participate in the care of Ms. Childress. Attestation To help prompt me to consider important information that might be impacting today's encounter and assessment, information from prior notes written by myself or my colleagues may have been "brought forward" into today's note. My signature on this note, however, is an attestation that I personally performed the exam, history, and/or decision-making noted today, and, unless otherwise indicated, the interactions with patient, family, and staff as well as the review of records all occurred today. I also attest that the listed assessment and stated plan reflect my best clinical judgment today based on the combination of historical information, prior notes, and today's exam/ interactions. When time spent is documented, it refers only to time spent today by the signer, or if indicated, combined time spent today by collaborating physician/nurse practitioner. Jessie Bach Jul 09, 2016 15:55
[2016-07-09] MEDS: MORPHINE SULFATE 4 MG/ML INJ IV PUSH PRN (17:38)
--- NOTE | 2016-07-09 19:40 | MB ---
cc: CHRISTINA POLO M.D.,MARISOL Salinas MD DATE OF CONSULTATION 07/09/[address] Posey. REASON FOR CONSULTATION Pancreatitis. HISTORY OF THE PRESENT ILLNESS Ms. Childress is a 70-year-old lady with multiple comorbidities who is a very poor historian, was admitted because of shortness of breath. During workup she had a lipase level done which was elevated. This has prompted GI consultation. History is very difficult to obtain from the patient. It is unclear if she is having any distress at this time. PAST MEDICAL HISTORY 1. Hypertension. 2. Intracerebral hemorrhage. 3. Dysphagia. 4. Depression. 5. Breast cancer. 6. Multiple pneumonias. 7. Pancreatic pseudocyst. 8. Reflux. 9. Sleep apnea. 10. History of liver disease. PAST SURGICAL HISTORY 1. Mastectomy. 2. Endoscopies with recent PEG tube placement. SOCIAL HISTORY She is a resident of a local long term. ALLERGIES ASPIRIN. MEDICATIONS 1. Lisinopril. 2. Keppra. 3. Clonidine. 4. Tylenol. FAMILY HISTORY Not available. REVIEW OF SYSTEMS Not able to obtain. PHYSICAL EXAMINATION GENERAL: Reveals an elderly lady in no acute distress. VITAL SIGNS: Stable. HEAD AND NECK: Anicteric sclerae. CHEST: Bilateral air entry with rales. ABDOMEN: Soft and nontender. No hepatosplenomegaly. Bowel sounds are present. CENTRAL NERVOUS SYSTEM: Nonfocal. RECTAL: Examination deferred at this time. LABORATORY DATA Labs reveal a hemoglobin of 8.5. INR is 1. Liver function tests reveal alkaline phosphatase 157, lipase currently 352. IMAGING CT of the abdomen and pelvis reveals a well-defined cystic mass in the body of the pancreas which has been present at least for the last four years, otherwise no changes of pancreatitis. IMPRESSION Pancreatic pseudocyst versus benign pancreatic mass. RECOMMENDATIONS This mass has been present and stable for many years. Currently patient's lipase has gone back to normal. She does not appear to be any distress. Her overall functional status is very poor making further workup very difficult if not impossible. For now would recommend just monitoring her clinically. Monitor labs. She is not a candidate for endoscopic ultrasound. An MRCP can be considered but at this time would recommend conservative measures. We will follow with you. Thank you for this referral. MD SISSY Rob /7:01 PM 7:27 PM
[2016-07-09] MEDS: AZITHROMYCIN INJ 500 MG in SODIUM CHLOR 0.9% 250 ML INJ 250 ML IV SCH (21:58)
[2016-07-10] VITALS (9 sets, daily range): BP systolic 127–154; BP diastolic 60–79; PULSE 85–102; RESP 18–24; TEMP 97.3–98.5; O2SAT 93–100
[2016-07-10] MEDS: PIPERACIL-TAZO 4.5 GM PREMIX 100 ML IV SCH ×4 (03:25→21:23)
[2016-07-10] MEDS: VANCOMYCIN INJ 1,250 MG in SODIUM CHLOR 0.9% 250 ML INJ 250 ML IV SCH (05:57)
--- NOTE | 2016-07-10 07:54 | EKG ---
Date Performed: 07/08/2016 Time Performed: 16:10:17 PTAGE: 70 years EKG: LIKELY ATRIAL FIBRILLATION/FLUTTER WITH RAPID VENTRICULAR RESPONSE NONSPECIFIC T-WAVE ABNOR MALITY Would recommend repeat EKG at a slower heart rate Compared to the previous tracing the narrow complex tachycardia above has replaced Sinus rhythm ABNORMAL RHYTHM ECG PREVIOUS TRACING : 06/17/2016 20.07 DOCTOR: Herrera Dotson Interpretating Date/Time 07/11/2016 07:59:28
--- NOTE | 2016-07-10 07:56 | EKG ---
Date Performed: 07/08/2016 Time Performed: 16:13:12 PTAGE: 70 years EKG: LIKELY ATRIAL FIBRILLATION WITH RAPID VENTRICULAR RESPONSE THOUGH THERE IS BASELINE ARTIFAC T. WOULD RECOMMEND REPEAT EKG. AT TIMES THERE DOES APPEAR TO BE ORGANIZED ATRIAL ACTIVITY NONSPECIFIC T-WAVE ABNORMALITY Compared to the previous tracing the ventricular response has slowed ABNORMAL ECG PREVIOUS TRACING : 07/08/2016 16.10 DOCTOR: Herrera Dotson Interpretating Date/Time 07/10/2016 07:55:54
--- NOTE | 2016-07-10 07:58 | EKG ---
Date Performed: 07/08/2016 Time Performed: 16:17:44 PTAGE: 70 years EKG: Sinus rhythm WITH OCCASIONAL SUPRAVENTRICULAR PREMATURE COMPLEXES NONSPECIFIC ST & T-WAVE ABNORMALITY Compared to the previous tracing sinus rate with ectopy has replaced narrow complex tachycardia noted on prior t racing BORDERLINE ECG PREVIOUS TRACING : 07/08/2016 16.13 DOCTOR: Herrera Dotson Interpretating Date/Time 07/10/2016 07:56:44
[2016-07-10] MEDS: HEPARIN SODIUM - SQ 10,000 UNITS/ML VIAL SQ SCH ×2 (08:50→21:02)
[2016-07-10] MEDS: LISINOPRIL 20 MG TAB PO SCH (08:50)
[2016-07-10] MEDS: cloNIDine HCL 0.1 MG TAB PO SCH ×2 (08:50→21:02)
[2016-07-10] MEDS: levETIRAcetam 500 MG/5 ML UDC PO SCH ×3 (08:50→21:02)
[2016-07-10] MEDS: METOPROLOL TARTRATE 25 MG TAB G-TUBE SCH ×2 (08:50→21:02)
[2016-07-10] MEDS: SODIUM CHLORIDE 0.9% FLUSH 5 ML FLUSH FLUSH SCH ×2 (08:51→21:03)
[2016-07-10] MEDS: SODIUM CHLOR 0.9% 1000 ML INJ 1,000 ML IV SCH ×2 (08:51→17:27)
[2016-07-10] MEDS: RESP: ALBUTEROL 2.5 MG/IPRATROPIUM 0.5 MG NEB (SCH) NEB ×3 (08:59→19:37)
--- NOTE | 2016-07-10 13:33 | HHI.PR ---
Subjective Remarks Minimal response eyes rolling around in head, facial twitching color pale upper airway gargle. (Eugenia Cortez) Objective Objective Results - Vital Signs Date Time Temp Pulse Resp B/P Pulse Ox O2 Delivery O2 Flow Rate FiO2 07/10/16 09:57 92 07/10/16 08:59 99 Nasal Cannula 2.00 07/10/16 04:00 98.5 94 20 133/79 99 07/10/16 00:00 98.4 85 20 127/60 100 07/09/16 20:00 98.6 83 20 133/60 97 07/09/16 20:00 77 07/09/16 19:36 98 Nasal Cannula 2.00 07/09/16 16:00 97.6 73 20 115/57 98 07/09/16 13:28 97 Nasal Cannula 2.00 I/O 07/09/16 07/09/16 07/09/16 07/10/16 07/10/16 07/10/16 07:00 15:00 23:00 07:00 15:00 23:00 Intake Total 1175 ml 1576 ml 1520 ml Output Total 800 ml 600 ml 325 ml Balance 375 ml 976 ml -325 ml 1520 ml Intake Oral 0 ml IV Total 175 ml 1576 ml 1455 ml Other 1000 ml 65 ml Output Urine Total 800 ml 600 ml 325 ml # Bowel Movements 0 (Eugenia Cortez) Result Diagram: 07/09/16 0955 07/09/16 0733 ROS General: Weakness, Other (unable to obtain ROS) (Eugenia Cortez) Physical Exam Physical Exam PHYSICAL EXAMINATION GENERAL: This is an ill appearing female, possible mild seizure activity She is alert and awake, []. HEAD: Normocephalic without any lesion or mass noted. Facial features appear asymmetric. OROPHARYNGEAL: Oropharynx without erythema or edema., dry, pale NECK: Supple. No nuchal rigidity or lymphadenopathy. Trachea midline without deviation. CARDIAC: Regular rhythm, regular rate, S1 and S2 are heard. LUNGS: Diminished to auscultation bilaterally. audible rhonchi ABDOMEN: Soft, Bowel sounds are heard in all four quadrants. EXTREMITIES: no edema. NEUROLOGICAL: facial twitching, eyes rolling back, cant hold eye contact, SKIN:Warm and moist Objective Remarks none (Eugenia Cortez) A/P Assessment and Plan Shortness of breath,low air volumes, tachypnea and tachycardia, etiology unclear , recurrent infection, possible early pneumonia, probable aspiration. elevated lipase, possible pancreatitis. This could be causing pain resulting in tachycardia and tachypnea. 3. Respiratory alkalosis. 4. Hypertension., 5. History of dense CVA with right hemiplegia. 6. History of liver disease. 7. History of depression. 8. History of seizure disorder., Active seizures today 9. Recent respiratory failure and pneumonia. 10.Poor performance status. 11.Severe protein calorie malnutrition. 12.Chronic kidney disease, stage II. 13.History of breast cancer. PLAN Will give her IV fluids, gentle hydration No food by mouth as she has severe oropharyngeal dysphagia, now with audible gargle. Check BNP to rule out CHF. Clinically she is not showing signs of congestive heart failure, No SOB noted. Leukocytosis improved. 5. Repeat troponin to exclude angina or [place]. She is unable to explain symptoms which makes it very difficult to establish a good diagnosis. 6. Control blood pressure, stable BP today 7. Obtain GI consultation, recommends conservative treatment for now. will monitor labs 8. Continue Keppra, consult neurology, probable siezure activity 9. PUD prophy, 10. pain management 11.palliative care team consult, spoke with daughter who states continue Full code , full agressive care. 12.Will look at nutrition in am after neuro visit 13.SCDs for DVT prophylaxis. The patient's overall health is very poor. Her performance status is very low. She is bedridden. She is aphasic with severe oropharyngeal dysphagia, dependent for her care. We will try to reach out to the family to determine the overall goal of care. The patient meets inpatient criteria. Without appropriate treatment she may develop severe pancreatitis or recurrent sepsis, acute respiratory failure. Discussed With: Nurse, Other (Dr. Posey, pt. seen on his behalf) (Eugenia Cortez) Assessment and Plan pt is seen & examined palliative care team input appreciated cont empiric iV abx IVF Keppra EEG neurology consult appreciated , d/w DR Ritter start tube feeding cont supportive care overall prognosis is poor will f/u (Geri Posey MD) Eugenia Cortez Jul 10, 2016 13:33 Geri Posey MD Jul 10, 2016 18:08
[2016-07-10 14:37] LABS: BICARBONATE 20.2 MEQ/L (21.0-32.0); POTASSIUM 4.3 MEQ/L (3.5-5.1)
[2016-07-10 14:40] LABS: HEMATOCRIT 29.6 % (35.0-46.0); MEAN CELL VOLUME 87.1 FL (80.0-100.0); PLATELET COUNT 85 TH/MM3 (150-450); RED CELL DISTRIBUTION WIDTH 19.1 % (11.6-17.2); WHITE BLOOD COUNT 11.1 TH/MM3 (4.0-11.0)
--- NOTE | 2016-07-10 14:41 | HHI.GIFU ---
Subjective Remarks Resting in bed. Nonverbal for me, but does track and nods at times. When asked if she is in pain, she does nod yes, but then does not provide any additional information and cannot tell me where she is having pain. (Fernanda Tucker) Objective Vitals I&O Vital Signs Date Time Temp Pulse Resp B/P Pulse Ox O2 Delivery O2 Flow Rate FiO2 07/10/16 09:57 92 07/10/16 08:59 99 Nasal Cannula 2.00 07/10/16 04:00 98.5 94 20 133/79 99 07/10/16 00:00 98.4 85 20 127/60 100 07/09/16 20:00 98.6 83 20 133/60 97 07/09/16 20:00 77 07/09/16 19:36 98 Nasal Cannula 2.00 07/09/16 16:00 97.6 73 20 115/57 98 I/O 07/09/16 07/09/16 07/09/16 07/10/16 07/10/16 07/10/16 07:00 15:00 23:00 07:00 15:00 23:00 Intake Total 1175 ml 1576 ml 1520 ml Output Total 800 ml 600 ml 325 ml Balance 375 ml 976 ml -325 ml 1520 ml Intake Oral 0 ml IV Total 175 ml 1576 ml 1455 ml Other 1000 ml 65 ml Output Urine Total 800 ml 600 ml 325 ml # Bowel Movements 0 Laboratory Date/Time Procedure Status Source Growth 07/08/16 18:11 Influenza Types A,B Antigen (ZIGGY) - Final Complete Nasal Washing NEGATIVE FOR FLU A AND B ANTIGEN.... 07/08/16 17:45 Urine Culture - Final Complete Urine Catheterized Urine Tamy Albicans 07/08/16 16:30 Aerobic Blood Culture - Preliminary Resulted Blood Peripheral NO GROWTH IN 2 DAYS 07/08/16 16:30 Anaerobic Blood Culture - Preliminary Resulted Blood Peripheral NO GROWTH IN 2 DAYS Imaging Last Impressions Chest X-Ray 07/08/16 1554 Signed Impressions: Service Date/Time: Friday, July 08, 2016 16:33 - CONCLUSION: Mild suspected atelectasis or consolidation at the left base. Kye Montiel MD CT Angiography 07/08/16 0000 Signed Impressions: Service Date/Time: Friday, July 08, 2016 18:29 - CONCLUSION: 1. Limited study from motion artifact. No definite PE in the main pulmonary arteries. 2. Mild bibasilar infiltrates. Edilson Solis MD Abdomen/Pelvis CT 07/08/16 0000 Signed Impressions: Service Date/Time: Friday, July 08, 2016 18:29 - CONCLUSION: 1. Bibasilar atelectasis. 2. Stable cystic mass involving the proximal body of the pancreas. No significant change compared to 2012. 3. Small amount of free fluid in the pelvis. 4. Hepatocellular disease of the liver which appears to be stable. 5. No new or significant changes. Edilson Solis MD Physical Exam HEENT: Normocephalic; atraumatic; no jaundice. CHEST: CTA CARDIAC: RRR ABDOMEN: Soft, nondistended, nontender; no hepatosplenomegaly; bowel sounds are present in all four quadrants. EXTREMITIES: No clubbing, cyanosis, or edema. SKIN: Normal; no rash; no jaundice. SPACE [employer] OPERATIONS: Nonverbal, nods at times. (Fernanda Tucker) Assessment and Plan Plan ASSESSMENT: - Pancreatic cystic mass. Abdomen/Pelvis CT (07/08/16)----> 1. Bibasilar atelectasis. 2. Stable cystic mass involving the proximal body of the pancreas. No significant change compared to 2012. 3. Small amount of free fluid in the pelvis. 4. Hepatocellular disease of the liver which appears to be stable. 5. No new or significant changes. This mass has been stable for many years. The patient's lipase has normalized. Not a candidate for endoscopic ultrasound. Recommend conservative measures. Today's labs pending. - Leukocytosis. WBC 12.6. - RI, per primary - Possible early pneumonia. Abx, nebs per primary - HTN, Hx CVA, Depression, Sz D/O per primary. PLAN: - HEIDI - Monitor labs - Not a candidate for endoscopic ultrasound - Recommend conservative treatment - Pt seen and examined by Dr. Rahman and myself and this note is written on his behalf (Fernanda Tucker) Physician Comments Seen and examined with [facility], seems better. Not a candidate for any invasive procedures. Conservative/comfort measures only. GI will sign off, reconsult as needed. Thank you (Katerina Rahman MD) Fernanda Tucker Jul 10, 2016 14:41 Katerina Rahman MD Jul 10, 2016 21:02
[2016-07-10 14:43] LABS: REVIEW FLAG FINAL
--- NOTE | 2016-07-10 15:06 | HHI.HCPN ---
Reason for visit a. To assist with evaluation and management of symptoms including: debility and shortness of breath. b. To assist medical decision maker(s) with: better understanding of current medical conditions; weighing benefits/burdens of medical treatment options; making medical treatment decisions. . (Jessie Bach) Subjective/Interval History Patient seen in her room, she was laying in bed in no acute distress. Sleeping but opening eyes to verbal stimuli. Following some simple commands. nodding head to "yes/no" questions. Right-sided hemiparesis with right leg contraction and bilateral foot drops. Patient aphasic, denies pain, shortness of breath or discomfort. No family at bedside. Patient afebrile, stable BP and heart rate. Tolerating oxygen via nasal cannula 2 L. Laboratory today with WBC 11.1, Hgb 9.2, platelet count 85. Sodium 147, potassium 4.3, BUN/creatinine 13/0.96. Lipase back to normal limits today, 142 from 352 yesterday. GI -Dr. Lantigua consulted yesterday for evaluation of possible pancreatitis given increased lipase and cystic mass in the body of the pancreas found and imaging. This mass appeared unchanged for the last 4 years. Clinical monitoring recommended, patient not a candidate for endoscopic ultrasound. . Family/friend interactions Telephone call to patient's daughter Cat Childress . Medical update provided. Goals of treatment remain unchanged, continue aggressive care with the hopes of returning patient to long-term facility. Discussed risks, benefits and limitations of CPR, intubation and mechanical ventilation given patient's bedbound state and neurological deficit secondary to CVA. Family electing for continuation of full code at this time. Palliative care contact information has been provided. . (Jessie Bach) Advance Directives Living Will: Never completed Health Care Surrogate: Never completed Durable Power of Painter Apprentice: Copy in medical record (Jessie Bach) Advance Directive Specifics Date completed: General power of senior attorney completed on August 22, 2010. . Health Care Surrogate(s): As per daughter, no living will or healthcare surrogate designation has been completed. As per [place] statute, all 3 of patient's children would be healthcare decision-maker's. . Documented care wishes: No living will has been completed. . Significant change in goals: Remain unchanged. FULL CODE. Aggressive care with hopes of clinical improvement/ return patient to long-term facility. . (Jessie Bach) Objective Vital Signs Date Time Temp Pulse Resp B/P Pulse Ox O2 Delivery O2 Flow Rate FiO2 07/10/16 09:57 92 07/10/16 08:59 99 Nasal Cannula 2.00 07/10/16 04:00 98.5 94 20 133/79 99 07/10/16 00:00 98.4 85 20 127/60 100 07/09/16 20:00 98.6 83 20 133/60 97 07/09/16 20:00 77 07/09/16 19:36 98 Nasal Cannula 2.00 07/09/16 16:00 97.6 73 20 115/57 98 Intake & Output 07/10/16 07/10/16 07:00 19:00 Intake Total 1520 ml Output Total 325 ml Balance 1195 ml IV Total 1455 ml Other 65 ml Output Urine Total 325 ml Physical Exam CONSTITUTIONAL/GENERAL: This is an elderly female laying in bed in no acute distress. She appears older than stated age. TUBES/LINES/DRAINS: PIV's, Rosales catheter, bilateral wrist restraints. SKIN: No jaundice, rashes, or lesions. No wounds seen anteriorly. Skin temperature appropriate. Not diaphoretic. HEAD: Atraumatic. Normocephalic. EYES: Pupils equal and round and reactive. No scleral icterus. No injection or drainage. ENT: Hearing appears grossly normal. Nose without bleeding or purulent drainage. Edentulous. NECK: Trachea midline. Supple. CARDIOVASCULAR: Irregular rate and rhythm without murmurs, gallops, or rubs. Peripheral pulses symmetric. RESPIRATORY/CHEST: Symmetric, unlabored respirations. Rhonchi left more than right. O2 via nasal cannula. GASTROINTESTINAL: Abdomen soft, non-tender, nondistended. No guarding. Bowel sounds present. PEG tube in place, site clean. GENITOURINARY: Without palpable bladder distension. Rosales catheter in place. Urine amount of yellow output and Rosales bag. MUSCULOSKELETAL: Extremities without clubbing cyanosis. Muscle wasting to bilateral lower extremities. Right leg appears contracted. Bilateral foot drop. NEUROLOGICAL: Awake. Alert, opening eyes to verbal stimuli. Following some simple commands and answering to "yes/no" questions. PSYCHIATRIC: Unable to assess secondary to clinical condition. Appears calm. . (Jessie Bach) Diagnostic Tests Laboratory Laboratory Tests Test 07/08/16 07/08/16 07/08/16 07/08/16 16:00 16:23 16:33 17:45 Blood Gas Puncture Site PERIPHERAL Blood Gas Patient Temperature 98.6 Venous Blood pH 7.26 (7.360-7.400) Venous Blood Partial Pressure 52 mmHg (44-48) CO2 Venous Blood Partial Pressure 30 mmHg (35-40) O2 Venous Blood HCO3 23 mmol/L (22-26) Venous Blood Oxygen Saturation 41 % (70-76) Venous Blood Oxygen Content 7.4 Vol % (9.0-17.0) Venous Blood Base Excess -3.3 mmol/L (-2-2) Oxygen Delivery Device NASAL CANNULA Blood Gas Liter Flow 4 L/M Blood Gas Inspired Oxygen 36 % White Blood Count 14.4 TH/MM3 (4.0-11.0) Red Blood Count 3.71 MIL/MM3 (4.00-5.30) Hemoglobin 9.9 GM/DL (11.6-15.3) Hematocrit 31.0 % (35.0-46.0) Mean Corpuscular Volume 83.7 FL (80.0-100.0) Mean Corpuscular Hemoglobin 26.7 PG (27.0-34.0) Mean Corpuscular Hemoglobin 31.9 % Concent (32.0-36.0) Red Cell Distribution Width 18.1 % (11.6-17.2) Platelet Count 111 TH/MM3 (150-450) Mean Platelet Volume 11.1 FL (7.0-11.0) Neutrophils (%) (Auto) 79.1 % (16.0-70.0) Lymphocytes (%) (Auto) 12.6 % (9.0-44.0) Monocytes (%) (Auto) 6.8 % (0.0-8.0) Eosinophils (%) (Auto) 1.3 % (0.0-4.0) Basophils (%) (Auto) 0.2 % (0.0-2.0) Neutrophils # (Auto) 11.4 TH/MM3 (1.8-7.7) Lymphocytes # (Auto) 1.8 TH/MM3 (1.0-4.8) Monocytes # (Auto) 1.0 TH/MM3 (0-0.9) Eosinophils # (Auto) 0.2 TH/MM3 (0-0.4) Basophils # (Auto) 0.0 TH/MM3 (0-0.2) CBC Comment DIFF FINAL Differential Comment Prothrombin Time 11.2 SEC (9.8-11.6) Prothromb Time International 1.0 RATIO Ratio Activated Partial 30.3 SEC Thromboplast Time (24.3-30.1) Sodium Level 139 MEQ/L (136-145) Potassium Level 4.3 MEQ/L (3.5-5.1) Chloride Level 107 MEQ/L (98-107) Carbon Dioxide Level 24.0 MEQ/L (21.0-32.0) Anion Gap 8 MEQ/L (5-15) Blood Urea Nitrogen 19 MG/DL (7-18) Creatinine 1.15 MG/DL (0.50-1.00) Estimat Glomerular Filtration 57 ML/MIN (>89) Rate Random Glucose 150 MG/DL (74-106) Calcium Level 8.1 MG/DL (8.5-10.1) Phosphorus Level 2.8 MG/DL (2.5-4.9) Magnesium Level 1.8 MG/DL (1.5-2.5) Total Bilirubin 0.9 MG/DL (0.2-1.0) Aspartate Amino Transf 75 U/L (15-37) (AST/SGOT) Alanine Aminotransferase 52 U/L (10-53) (ALT/SGPT) Alkaline Phosphatase 157 U/L (45-117) Total Creatine Kinase 63 U/L (26-192) Troponin I 0.04 NG/ML (0.02-0.05) Total Protein 7.5 GM/DL (6.4-8.2) Albumin 2.0 GM/DL (3.4-5.0) Lipase 593 U/L (73-393) Lactic Acid Level 1.6 mmol/L (0.4-2.0) Urine Color YELLOW (YELLW/STRAW) Urine Turbidity HAZY (CLEAR) Urine pH 5.5 (5.0-8.5) Urine Specific [place] 1.014 (1.002-1.035) Urine Protein 30 mg/dL (NEG-TRACE) Urine Glucose (UA) NEG mg/dL (NEG) Urine Ketones NEG mg/dL (NEG) Urine Occult Blood NEG (NEG) Urine Nitrite NEG (NEG) Urine Bilirubin NEG (NEG) Urine Urobilinogen LESS THAN 2.0 MG/DL (LESS THAN 2.0) Urine Leukocyte Esterase LARGE (NEG) Urine RBC 1 /hpf (0-3) Urine WBC 21 /hpf (0-5) Urine WBC Clumps OCC (NONE) Urine Squamous Epithelial 1 /hpf (0-5) Cells Urine Bacteria FEW /hpf (NONE) Urine Mucus FEW /lpf (OCC) Urine Yeast with Hyphae FEW (NONE) Urine Yeast (Budding) MOD (NONE) Microscopic Urinalysis Comment CATH-CULTURE IND Test 07/08/16 07/08/16 07/09/16 07/09/16 18:01 22:15 07:33 09:55 Stool C. difficile Toxin (PCR) NEGATIVE (NEGATIVE) Stl C. difficile Toxin PRESUMPTIVE Epiderm 027 NEGATIVE (NEGATIVE) Lactic Acid Level 1.4 mmol/L (0.4-2.0) Sodium Level 145 MEQ/L (136-145) Potassium Level 4.6 MEQ/L (3.5-5.1) Chloride Level 114 MEQ/L (98-107) Carbon Dioxide Level 21.0 MEQ/L (21.0-32.0) Anion Gap 10 MEQ/L (5-15) Blood Urea Nitrogen 20 MG/DL (7-18) Creatinine 1.08 MG/DL (0.50-1.00) Estimat Glomerular Filtration 61 ML/MIN (>89) Rate Random Glucose 99 MG/DL (74-106) Calcium Level 8.0 MG/DL (8.5-10.1) Troponin I 0.05 NG/ML (0.02-0.05) Lipase 352 U/L (73-393) White Blood Count 12.6 TH/MM3 (4.0-11.0) Red Blood Count 3.13 MIL/MM3 (4.00-5.30) Hemoglobin 8.5 GM/DL (11.6-15.3) Hematocrit 26.5 % (35.0-46.0) Mean Corpuscular Volume 84.7 FL (80.0-100.0) Mean Corpuscular Hemoglobin 27.2 PG (27.0-34.0) Mean Corpuscular Hemoglobin 32.1 % Concent (32.0-36.0) Red Cell Distribution Width 18.5 % (11.6-17.2) Platelet Count 95 TH/MM3 (150-450) Mean Platelet Volume 11.0 FL (7.0-11.0) Neutrophils (%) (Auto) % (16.0-70.0) Lymphocytes (%) (Auto) % (9.0-44.0) Monocytes (%) (Auto) % (0.0-8.0) Eosinophils (%) (Auto) % (0.0-4.0) Basophils (%) (Auto) % (0.0-2.0) Neutrophils # (Auto) TH/MM3 (1.8-7.7) Lymphocytes # (Auto) TH/MM3 (1.0-4.8) Monocytes # (Auto) TH/MM3 (0-0.9) Eosinophils # (Auto) TH/MM3 (0-0.4) Basophils # (Auto) TH/MM3 (0-0.2) CBC Comment AUTO DIFF Differential Total Cells 100 Counted Neutrophils % (Manual) 71 % (16-70) Band Neutrophils % 8 % (0-6) Lymphocytes % 8 % (9-44) Monocytes % 11 % (0-8) Eosinophils % 2 % (0-4) Neutrophils # (Manual) 10.0 TH/MM3 (1.8-7.7) Differential Comment FINAL DIFF MANUAL Platelet Estimate LOW (NORMAL) Platelet Morphology Comment ENLARGED (NORMAL) B-Type Natriuretic Peptide 275 PG/ML (0-100) Test 07/10/16 14:00 White Blood Count 11.1 TH/MM3 (4.0-11.0) Red Blood Count 3.40 MIL/MM3 (4.00-5.30) Hemoglobin 9.2 GM/DL (11.6-15.3) Hematocrit 29.6 % (35.0-46.0) Mean Corpuscular Volume 87.1 FL (80.0-100.0) Mean Corpuscular Hemoglobin 27.0 PG (27.0-34.0) Mean Corpuscular Hemoglobin 31.0 % Concent (32.0-36.0) Red Cell Distribution Width 19.1 % (11.6-17.2) Platelet Count 85 TH/MM3 (150-450) Mean Platelet Volume 10.7 FL (7.0-11.0) Sodium Level 147 MEQ/L (136-145) Potassium Level 4.3 MEQ/L (3.5-5.1) Chloride Level 116 MEQ/L (98-107) Carbon Dioxide Level 20.2 MEQ/L (21.0-32.0) Anion Gap 11 MEQ/L (5-15) Blood Urea Nitrogen 13 MG/DL (7-18) Creatinine 0.96 MG/DL (0.50-1.00) Estimat Glomerular Filtration 70 ML/MIN (>89) Rate Random Glucose 90 MG/DL (74-106) Calcium Level 8.1 MG/DL (8.5-10.1) Lipase 142 U/L (73-393) (Jessie Bach) Result Diagram: 07/10/16 1400 07/10/16 1400 Microbiology Microbiology Date/Time Procedure Status Source Growth 07/08/16 16:28 Aerobic Blood Culture - Preliminary Resulted Blood Peripheral NO GROWTH IN 2 DAYS 07/08/16 16:28 Anaerobic Blood Culture - Preliminary Resulted Blood Peripheral NO GROWTH IN 2 DAYS 07/08/16 16:30 Aerobic Blood Culture - Preliminary Resulted Blood Peripheral NO GROWTH IN 2 DAYS 07/08/16 16:30 Anaerobic Blood Culture - Preliminary Resulted Blood Peripheral NO GROWTH IN 2 DAYS 07/08/16 17:45 Urine Culture - Final Complete Urine Catheterized Urine Tamy Albicans 07/08/16 18:11 Influenza Types A,B Antigen (ZIGGY) - Final Complete Nasal Washing NEGATIVE FOR FLU A AND B ANTIGEN.... Imaging Last 48 hours Impressions Chest X-Ray 07/08/16 1554 Signed Impressions: Service Date/Time: Friday, July 08, 2016 16:33 - CONCLUSION: Mild suspected atelectasis or consolidation at the left base. Kye Montiel MD (Jessie Bach) Assessment and Plan Disease Oriented Problem List: (1) CVA (cerebral vascular accident) (2) Respiratory distress (3) Tachycardia with heart rate 121-140 beats per minute Symptom Scale: (1) Shortness of breath 0-10 Scale: Unable to quantify Comment: Currently tolerating O2 via nasal cannula. (2) Debility 0-10 Scale: Unable to quantify Comment: Progressive secondary to CVA, bedbound state. Pertinent Non-Medical Issues Psychosocial: . Resident of long-term facility. Has 3 children. Spiritual: Orthodoxy. Legal: No living will completed. Ethical issues impacting care: No living will completed. . Important Contacts Daughter Cat Childress [phone]. . Prognosis Mrs. Childress is a 70-year-old female with a medical history significant of left MCA stroke with right-sided hemiparesis, COPD, schizoaffective disorder, dementia, history of of intracranial aneurysm bleed, hypertension, seizure disorder, liver cirrhosis who is a long-term resident at [facility] for the past 5 years. Patient presented to the ED on 07/09/16 with complaints of shortness of breath and was admitted for further management. Recent prolonged hospitalization from 06/17/16 to 07/06/16 secondary to acute respiratory distress and urosepsis. At that time patient required intubation and mechanical ventilation. Patient is full care, bedbound with a PPS of 30%. Overall prognosis is poor for an improved quality of life given patient's age, bedbound state, neurological deficits, multiple comorbidities and acute events. Patient is a very high risk for further decline, complications and . . Code Status: Full Code Plan * CODE STATUS: Full code. Risks, benefits and limitations of CPR, intubation and mechanical ventilation discussed with emy Shelton given patient's bedbound state and neurological deficit secondary to CVA. Family electing for continuation of full code at this time. * HEALTHCARE DECISION-MAKING: Patient incapacitated secondary to clinical condition. As per daughter, no living will or healthcare surrogate designation has been completed. As per [place] statute, all 3 of patient's children would be healthcare decision-maker's. Power of senior attorney in chart, which does not include medical decision maker. * GOALS OF CARE: As per family, goals of treatment remain unchanged. Continue of aggressive care to include CPR, intubation and mechanical ventilation if medically indicated. Family hoping for clinical improvement with the goal of returning patient to long-term facility. * SYMPTOMS: == Debility, secondary to CVA in 2011 with right-sided hemiparesis, bedbound state, recent prolonged hospitalization. Likely to continue worsening. == Shortness of breath, history of COPD, recent hospitalization complicated by acute respiratory failure requiring intubation and mechanical ventilation. Currently tolerating O2 via nasal cannula. * Palliative care contact information has been provided to patient's daughter. * Palliative care will continue to follow-up as needed for further clarifications of goals of care as the clinical course evolves. . (Jessie Bach) Time Spent Total Floor Time (mins): 35 (Total time to include review of medical records since last visit, physical exam, and telephone conversation with patient's daughter.) >50% Counseling/Coord of Care: Yes (Jessie Bach) Attestation To help prompt me to consider important information that might be impacting today's encounter and assessment, information from prior notes written by myself or my colleagues may have been "brought forward" into today's note. My signature on this note, however, is an attestation that I personally performed the exam, history, and/or decision-making noted today, and, unless otherwise indicated, the interactions with patient, family, and staff as well as the review of records all occurred today. I also attest that the listed assessment and stated plan reflect my best clinical judgment today based on the combination of historical information, prior notes, and today's exam/ interactions. When time spent is documented, it refers only to time spent today by the signer, or if indicated, combined time spent today by collaborating physician/nurse practitioner. (Jessie Bach) Collaborating MD Comments Chart reviewed. Cased discussed with palliative care INVASIVE PHYSICIAN. Above INVASIVE PHYSICIAN note reviewed and I concur. . (Julian Joe MD) Jessie Bach Jul 10, 2016 15:05 Julian Joe MD September 23, 2016 13:04
[2016-07-10] MEDS: AZITHROMYCIN INJ 500 MG in SODIUM CHLOR 0.9% 250 ML INJ 250 ML IV SCH (21:02)
[2016-07-10] MEDS ORDERED: PHARMACY ORDERED LAB XX ONE (23:45)
[2016-07-11] VITALS (9 sets, daily range): BP systolic 94–154; BP diastolic 52–75; PULSE 60–97; RESP 18–21; TEMP 97.5–98.2; O2SAT 97–100
[2016-07-11] MEDS: VANCOMYCIN INJ 1,250 MG in SODIUM CHLOR 0.9% 250 ML INJ 250 ML IV SCH (01:24)
[2016-07-11] MEDS: PIPERACIL-TAZO 4.5 GM PREMIX 100 ML IV SCH ×4 (02:32→20:21)
[2016-07-11] MEDS: SODIUM CHLOR 0.9% 1000 ML INJ 1,000 ML IV SCH ×3 (02:34→20:17)
[2016-07-11] MEDS ORDERED: PHARMACY ORDERED LAB XX ONE (02:45)
--- NOTE | 2016-07-11 06:30 | HHI.PR ---
Review/Management Daily Summary 07/11 no seizures per night staff eeg today keppra as is and if eeg significantly epileptiform myself or dr Griffith will follow otherwise no change and prn neuro f/u Subjective Subjective Comments No acute events reported No headache No chest pain No dyspnea Active Medications Current Medications Medications (Trade) Dose Ordered Sig/Sharmila Route Start Time Stop Time Status Last Admin (Cardizem Inj/NS Inj) 125 ml @ 0 mls/hr TITRATE IV 07/08/16 16:15 07/09/16 17:17 (Catapres) 0.1 mg BID PO 07/08/16 21:00 07/10/16 21:02 (Keppra Liq) 500 mg HS PO 07/08/16 21:00 07/10/16 21:02 (Keppra Liq) 250 mg BID PO 07/08/16 21:00 07/10/16 08:50 (Prinivil) 20 mg DAILY PO 07/09/16 09:00 07/10/16 08:50 (NS Flush) 2 ml UNSCH PRN FLUSH 07/08/16 20:15 (NS Flush) 2 ml BID FLUSH 07/08/16 21:00 07/10/16 21:03 (Tylenol) 650 mg Q4H PRN PO 07/08/16 20:15 (Zofran Inj) 4 mg Q6H PRN IVP 07/08/16 20:15 (Heparin Inj) 5,000 units Q12H SQ 07/08/16 21:00 07/10/16 21:02 Naloxone HCl 0.4 mg 0.4 mg UNSCH PRN IV 07/08/16 20:15 Azithromycin 500 mg/Sodium Chloride 250 ml @ 250 mls/hr Q24H IV 07/08/16 22:00 07/10/16 21:02 Pharmacy Profile Note 0 ml @ 0 mls/hr UNSCH OTHER 07/08/16 20:15 Piperacillin Sod/ Tazobactam Sod 100 ml @ 200 mls/hr Q6H IV 07/08/16 21:00 07/11/16 02:32 (Vancomycin Inj/ NS 250 ml Inj) 262.5 ml @ 250 mls/hr Q18H IV 07/09/16 12:00 07/11/16 01:24 Metoprolol Tartrate 25 mg 25 mg Q12HR G-TUBE 07/09/16 12:30 07/10/16 21:02 (NS 1000 ml Inj) 1,000 ml @ 100 mls/hr Q10H IV 07/09/16 12:30 07/11/16 02:34 (Morphine Inj) 2 mg Q6HR PRN IV PUSH 07/09/16 17:15 07/09/16 17:38 (Beneprotein Powder) 1 pack TID G-TUBE 07/11/16 09:00 Allergies Allergies Coded Allergies Aspirin (Verified Allergy, Severe, 06/17/16) *MDRO Multi-Drug Resistant Organism (Verified Adverse Reaction, Unknown, Cleared 05/2016, 06/26/16) Exam I&O / VS 07/10/16 07/10/16 07/11/16 15:00 23:00 07:00 Intake Total 1111 ml 0 ml Output Total 850 ml 600 ml 0 ml Balance 261 ml -600 ml 0 ml Intake Oral 0 ml IV Total 1111 ml Output Urine Total 850 ml 600 ml Tube Feeding Residual Discard 0 ml # Bowel Movements 1 Vital Signs Date Time Temp Pulse Resp B/P Pulse Ox O2 Delivery O2 Flow Rate FiO2 07/11/16 00:00 98.1 96 18 154/74 100 07/10/16 20:00 97.9 99 18 151/71 98 07/10/16 19:40 100 Nasal Cannula 2.00 07/10/16 16:00 98.0 96 24 148/69 97 07/10/16 12:00 97.7 86 24 133/72 100 07/10/16 09:57 92 07/10/16 08:59 99 Nasal Cannula 2.00 07/10/16 08:00 97.9 102 24 154/73 99 Objective Micro and Labs Laboratory Tests Test 07/10/16 07/11/16 14:00 00:27 White Blood Count 11.1 Red Blood Count 3.40 Hemoglobin 9.2 Hematocrit 29.6 Mean Corpuscular Volume 87.1 Mean Corpuscular Hemoglobin 27.0 Mean Corpuscular Hemoglobin 31.0 Concent Red Cell Distribution Width 19.1 Platelet Count 85 Mean Platelet Volume 10.7 Sodium Level 147 Potassium Level 4.3 Chloride Level 116 Carbon Dioxide Level 20.2 Anion Gap 11 Blood Urea Nitrogen 13 Creatinine 0.96 Estimat Glomerular Filtration 70 Rate Random Glucose 90 Calcium Level 8.1 Lipase 142 Vancomycin Level Trough 19.1 Date/Time Procedure Status Source Growth 07/08/16 18:11 Influenza Types A,B Antigen (ZIGGY) - Final Complete Nasal Washing NEGATIVE FOR FLU A AND B ANTIGEN.... 07/08/16 17:45 Urine Culture - Final Complete Urine Catheterized Urine Tamy Albicans 07/08/16 16:30 Aerobic Blood Culture - Preliminary Resulted Blood Peripheral NO GROWTH IN 2 DAYS 07/08/16 16:30 Anaerobic Blood Culture - Preliminary Resulted Blood Peripheral NO GROWTH IN 2 DAYS Bernabe Ritter MD Jul 11, 2016 06:30
[2016-07-11] MEDS: RESP: ALBUTEROL 2.5 MG/IPRATROPIUM 0.5 MG NEB (SCH) NEB ×3 (08:03→20:50)
[2016-07-11 08:10] LABS: HEMATOCRIT 25.9 % (35.0-46.0); MEAN CELL VOLUME 85.3 FL (80.0-100.0); MEAN CORPUSCULAR HGB CONC 32.8 % (32.0-36.0); PLATELET COUNT 94 TH/MM3 (150-450); RED BLOOD COUNT 3.03 MIL/MM3 (4.00-5.30); RED CELL DISTRIBUTION WIDTH 18.6 % (11.6-17.2); WHITE BLOOD COUNT 10.7 TH/MM3 (4.0-11.0)
[2016-07-11 08:13] LABS: REVIEW FLAG FINAL
[2016-07-11 08:42] LABS: BICARBONATE 21.8 MEQ/L (21.0-32.0); POTASSIUM 3.8 MEQ/L (3.5-5.1)
[2016-07-11] MEDS: BENEPROTEIN POWDER 1 PACK G-TUBE SCH ×3 (09:00→17:00)
--- NOTE | 2016-07-11 09:04 | MB ---
cc: CHELO RITTER M.D. DATE OF CONSULTATION: 07/10/2016 HISTORY OF PRESENT ILLNESS: The patient is a 70 year-old woman seen in neurological consultation. She was admitted a couple of days ago when she came in with shortness of breath. She is seen because of some possible seizure activity. I spoke to Dr. Posey. I spoke to the nurse. Apparently the patient had her eyes rolling up and she is responsive to verbal stimulation during these episodes. She has a history of large left-sided intracerebral hemorrhage causing right hemiplegia, aphasia, and dysphagia. She has a PEG tube. She has some respiratory failure and pneumonia. Also history of breast cancer. The patient lives in a nursing facility. She takes Keppra 500 milligrams at bed time and 250 milligrams twice a day. She takes clonidine and Lisinopril. It appears that the family has elected to continue with full care. The neurological exam shows the patient to be mumbling, mouthing some yes and no. It is difficult to be sure she has any definitive full comprehension. She does follow some simple commands. She did move the left side on request. The right-sided limbs are spastic and markedly weak. Muscle stretch reflexes are essentially absent throughout, plantar response probably extensor on the right. She does have some weakness on the left side as she has an obvious foot drop/dorsiflexion weakness on the left and also on the right. She might be able to count fingers bilaterally, difficult to be certain because of her inability to express herself. She was here recently and had CT brain at that time. I looked at some of her recent neurological records. ASSESSMENT Possible but difficult to determine whether or not she has been having any seizure activity. Will continue the Keppra. Will obtain an EEG. If these studies show any ictal ___ or prominent epileptiform discharge, then would adjust the anticonvulsant. Otherwise will continue medical care. Thank you for asking us to assist in her care. Chelo Ritter MD [facility] /5:50 PM /8:53 AM
[2016-07-11] MEDS: LISINOPRIL 20 MG TAB PO SCH (10:01)
[2016-07-11] MEDS: cloNIDine HCL 0.1 MG TAB PO SCH ×2 (10:01→20:16)
[2016-07-11] MEDS: METOPROLOL TARTRATE 25 MG TAB G-TUBE SCH ×2 (10:01→20:15)
[2016-07-11] MEDS: HEPARIN SODIUM - SQ 10,000 UNITS/ML VIAL SQ SCH ×2 (10:01→20:17)
[2016-07-11] MEDS: SODIUM CHLORIDE 0.9% FLUSH 5 ML FLUSH FLUSH SCH ×2 (10:02→20:21)
[2016-07-11] MEDS: levETIRAcetam 500 MG/5 ML UDC PO SCH ×3 (10:02→20:34)
--- NOTE | 2016-07-11 11:53 | HHI.PR ---
Subjective Remarks Minimal response, none to verbal eyes rolling around in head, nonverbal color pale mucous membranes upper airway gurgle continues. Objective Objective Results - Vital Signs Date Time Temp Pulse Resp B/P Pulse Ox O2 Delivery O2 Flow Rate FiO2 07/11/16 08:03 100 Nasal Cannula 2.00 07/11/16 04:00 98.0 85 18 123/58 100 07/11/16 00:00 98.1 96 18 154/74 100 07/10/16 20:00 97.9 99 18 151/71 98 07/10/16 20:00 86 07/10/16 19:40 100 Nasal Cannula 2.00 07/10/16 16:00 98.0 96 24 148/69 97 07/10/16 12:00 97.7 86 24 133/72 100 I/O 07/10/16 07/10/16 07/10/16 07/11/16 07/11/16 07/11/16 07:00 15:00 23:00 07:00 15:00 23:00 Intake Total 1520 ml 1111 ml 0 ml 0 ml Output Total 850 ml 600 ml 300 ml Balance 1520 ml 261 ml -600 ml -300 ml Intake Oral 0 ml 0 ml IV Total 1455 ml 1111 ml Other 65 ml Output Urine Total 850 ml 600 ml 300 ml Tube Feeding Residual Discard 0 ml # Bowel Movements 1 2 Result Diagram: 07/11/16 0753 07/11/16 0753 Other Results Last Impressions Chest X-Ray 07/08/16 1554 Signed Impressions: Service Date/Time: Friday, July 08, 2016 16:33 - CONCLUSION: Mild suspected atelectasis or consolidation at the left base. Kye Montiel MD CT Angiography 07/08/16 0000 Signed Impressions: Service Date/Time: Friday, July 08, 2016 18:29 - CONCLUSION: 1. Limited study from motion artifact. No definite PE in the main pulmonary arteries. 2. Mild bibasilar infiltrates. Edilson Solis MD Abdomen/Pelvis CT 07/08/16 0000 Signed Impressions: Service Date/Time: Friday, July 08, 2016 18:29 - CONCLUSION: 1. Bibasilar atelectasis. 2. Stable cystic mass involving the proximal body of the pancreas. No significant change compared to 2012. 3. Small amount of free fluid in the pelvis. 4. Hepatocellular disease of the liver which appears to be stable. 5. No new or significant changes. Edilson Solis MD Medications and IVs Active Medications Miscellaneous Information SPECIFIC LAB TO BE DRAWN: VANCO TROUGH DATE TO... ONCE ONCE XX; Start 07/14/16 at 00:45; Stop 07/14/16 at 00:46 Miscellaneous Information SPECIFIC LAB TO BE DRAWN:VANCO TROUGH DATE TO BE DR... ONCE ONCE XX; Start 07/11/16 at 02:45; Stop 07/11/16 at 02:46; Status Cancel Miscellaneous Information SPECIFIC LAB TO BE DRAWN:VANCOMYCIN TROUGH DATE TO... ONCE ONCE XX Last administered on 07/10/16t 00:27; Admin Dose 1; Start at 23:45; Stop 07/10/16 at 23:46; Status DC Protein 1 pack 1 pack TID G-TUBE; Start 07/11/16 at 09:00 Vancomycin HCl/ Sodium Chloride (Vancomycin Inj/ NS 250 ml Inj) 262.5 ml @ 262.5 mls/ hr Q24H IV; Start 07/12/16 at 01:00 ROS General: Weakness HEENT: Dysphagia Neuro/MS: Other (abnormal eye movement.) Physical Exam Physical Exam PHYSICAL EXAMINATION GENERAL: This is an ill female minimal response , nonverbal HEAD: Normocephalic , random eye rolling OROPHARYNGEAL: Oropharynx dry NECK: Supple. Trachea midline without deviation. CARDIAC: Regular rhythm, regular rate, S1 and S2 are heard. Murmur []; no gallops or rubs. LUNGS: low volumes, audible rhonchi , decreased BS ABDOMEN: Soft, peg tube EXTREMITIES: no edema. no purposeful movement NEUROLOGICAL: abnormal eye rolling SKIN:Warm and moist, dry Objective Remarks 0 A/P Assessment and Plan Shortness of breath,low air volumes, tachypnea and tachycardia, etiology unclear , recurrent infection, possible early pneumonia, probable aspiration. elevated lipase, possible pancreatitis. This could be causing pain resulting in tachycardia and tachypnea. 3. Respiratory alkalosis. 4. Hypertension., 5. History of dense CVA with right hemiplegia. 6. History of liver disease. 7. History of depression. 8. History of seizure disorder., Active seizures today 9. Recent respiratory failure and pneumonia. 10.Poor performance status. 11.Severe protein calorie malnutrition. 12.Chronic kidney disease, stage II. 13.History of breast cancer. PLAN IV fluids, gentle hydration continues No food by mouth as she has severe oropharyngeal dysphagia, now with audible gargle. continues Upper airway gurgle , unable to control secretions. HTN, medical management, stable BP today, vitals reviewed, afebrile Obtain GI consultation, recommends conservative treatment for now. will monitor labs, hgb 8.5, no acute changes Continue Keppra, consult neurology appreciate, possible siezure activity with abnormal eye movement continues. Minimal response until to tachtile stimuli. not alert. EEG ordered . PUD prophy, pain management if warrented palliative care team consult, spoke with daughter who states continue Full code , full agressive care. Unchanged for now. No family present during my visit. tube feedings via peg. Supportive care, SCDs for DVT prophylaxis. The patient's overall health is very poor. Her performance status is very low. She is bedridden. She is aphasic with severe oropharyngeal dysphagia, dependent for her care. We will try to reach out to the family to determine the overall goal of care. Condition guarded. The patient meets inpatient criteria. Without appropriate treatment she may develop severe pancreatitis or recurrent sepsis, acute respiratory failure. Discussed With: Nurse, Other (Dr. Posey, pt. seen on his behalf) Eugenia Cortez Jul 11, 2016 11:53
[2016-07-11] MEDS ORDERED: PHENYTOIN INJ 250 MG/5 ML VIAL IV ONE (13:45)
[2016-07-11] MEDS ORDERED: PHENYTOIN INJ 1,000 MG in SODIUM CHLORIDE 0.9% INJ 100 ML IV ONE (14:00)
[2016-07-11] MEDS: PHENYTOIN INJ 100 MG/2 ML VIAL IV SCH (20:19)
[2016-07-11] MEDS: AZITHROMYCIN INJ 500 MG in SODIUM CHLOR 0.9% 250 ML INJ 250 ML IV SCH (20:37)
[2016-07-11] MEDS: FLUCONAZOLE 400 MG PREMIX BAG 200 ML IV SCH (23:16)
[2016-07-12] VITALS (9 sets, daily range): BP systolic 109–135; BP diastolic 54–63; PULSE 86–104; RESP 18; TEMP 98.1–98.9; O2SAT 95–100
[2016-07-12] MEDS ORDERED: VANCOMYCIN INJ 1,250 MG in SODIUM CHLOR 0.9% 250 ML INJ 250 ML IV SCH (01:00)
[2016-07-12] MEDS: PIPERACIL-TAZO 4.5 GM PREMIX 100 ML IV SCH ×2 (02:45→09:36)
[2016-07-12] MEDS: PHENYTOIN INJ 100 MG/2 ML VIAL IV SCH ×3 (05:22→22:31)
--- NOTE | 2016-07-12 06:41 | MG ---
cc: FLORENTINO ZAVALA MD Lab No: [id number] Date: 07/11/2016 Age: 71 Sex: F Race: __ DATE OF 1945 INDICATIONS A 70-year-old with a history of stroke and seizure. DESCRIPTION 1-3 Hz delta activity with tiny spike wave type discharge noted at epoch 13, pseudo periodic triphasic type of activity in the left posterior hemisphere occurring. Good EEG variability reactivity. Frontal tiny spike wave discharge noted at epoch 34. Limited driving with photic stimulation. Asymmetric more focal/focal slowing in the left posterior region. Rapid eye movements with attenuated alpha theta activity suggestive of REM sleep towards the end occurring. Single lead EKG showing sinus rhythm. INTERPRETATION Abnormal EEG. Mild to moderate encephalopathy with asymmetric left posterior region slowing and isolated rare left frontal sharp activity in the setting of a mostly sleep EEG. Single lead EKG showing sinus rhythm. No active seizures. Clinical correlation. MD GEOVANY Gambino/ASIA /6:07 AM /6:32 AM
[2016-07-12] MEDS: RESP: ALBUTEROL 2.5 MG/IPRATROPIUM 0.5 MG NEB (SCH) NEB ×3 (07:37→19:16)
[2016-07-12] MEDS: levETIRAcetam 500 MG/5 ML UDC PO SCH (08:32)
[2016-07-12] MEDS: cloNIDine HCL 0.1 MG TAB PO SCH ×2 (08:32→22:31)
[2016-07-12] MEDS: LISINOPRIL 20 MG TAB PO SCH (08:32)
[2016-07-12] MEDS: HEPARIN SODIUM - SQ 10,000 UNITS/ML VIAL SQ SCH ×2 (08:33→22:31)
[2016-07-12] MEDS: METOPROLOL TARTRATE 25 MG TAB G-TUBE SCH ×2 (08:33→22:31)
[2016-07-12] MEDS: BENEPROTEIN POWDER 1 PACK G-TUBE SCH ×3 (08:58→18:00)
[2016-07-12] MEDS: SODIUM CHLORIDE 0.9% FLUSH 5 ML FLUSH FLUSH SCH ×2 (09:36→21:00)
[2016-07-12] MEDS: SODIUM CHLOR 0.9% 1000 ML INJ 1,000 ML IV SCH ×2 (10:52→20:30)
--- NOTE | 2016-07-12 12:43 | HHI.PR ---
Subjective Remarks Minimal response, did attempt to open her eyes with tactile stimulation and verbal eyes rolling around in head, questionable seizure activity nonverbal color pale mucous membranes upper airway gurgle continues. (Eugenia Cortez) Objective Objective Results - Vital Signs Date Time Temp Pulse Resp B/P Pulse Ox O2 Delivery O2 Flow Rate FiO2 07/12/16 08:00 98.4 94 18 135/63 95 07/12/16 07:39 100 Nasal Cannula 2.00 07/12/16 04:00 98.2 96 18 121/59 100 07/12/16 00:00 98.3 86 18 109/57 98 07/11/16 20:50 99 Nasal Cannula 2.00 07/11/16 20:17 89 07/11/16 20:00 97.5 94 18 121/65 97 07/11/16 16:00 98.2 60 20 94/52 100 I/O 07/11/16 07/11/16 07/11/16 07/12/16 07/12/16 07/12/16 07:00 15:00 23:00 07:00 15:00 23:00 Intake Total 0 ml 0 ml 0 ml Output Total 300 ml 600 ml 150 ml 350 ml Balance -300 ml -600 ml -150 ml -350 ml Intake Oral 0 ml 0 ml 0 ml Output Urine Total 300 ml 600 ml 150 ml 350 ml Tube Feeding Residual Discard 0 ml 0 ml # Bowel Movements 2 5 0 0 (Eugenia Cortez) Result Diagram: 07/11/16 0753 07/11/16 0753 ROS General: Fatigue, Weakness (generalized ), Other (limited review of systems based on patient's altered mental status) Pulmonary: Other (audible rhonchi upper airways) GI: Diarrhea (occasional), Other (tube feeding) Neuro/MS: Confusion, Other (altered mental status) (Eugenia Cortez) Physical Exam Physical Exam PHYSICAL EXAMINATION GENERAL: This is a well-developed, mildly obese female who appears to be in no acute distress, minimal response , eyes closed, does attempt to open her eyes to tactile or verbal stimulation, otherwise eyes continue to roll back in her head HEAD: Normocephalic Facial features appear asymmetric. OROPHARYNGEAL: Oropharynx without erythema or edema., Dry NECK: Supple. Trachea midline without deviation. CARDIAC: Regular rhythm, regular rate, S1 and S2 are heard. Distant LUNGS: Low volumes to auscultation bilaterally. No wheeze, audible rhonchi decreased breath sounds at bases No use of accessory muscles on inspiration or expiration. ABDOMEN: Soft, nontender, no organomegaly or masses. Bowel sounds are Proactive in all four quadrants. PEG tube in with feedings at 30 cc an hour, tolerate EXTREMITIES: No edema. Pulses equal bilateral. NEUROLOGICAL: Minimal response. SKIN:Warm and moist Objective Remarks Nonverbal (Eugenia Cortez) A/P Assessment and Plan Shortness of breath,low air volumes, tachypnea and tachycardia, etiology unclear , recurrent infection, possible early pneumonia, probable aspiration. elevated lipase, possible pancreatitis. This could be causing pain resulting in tachycardia and tachypnea. 3. Respiratory alkalosis. 4. Hypertension., 5. History of dense CVA with right hemiplegia. 6. History of liver disease. 7. History of depression. 8. History of seizure disorder., Active seizures today 9. Recent respiratory failure and pneumonia. 10.Poor performance status. 11.Severe protein calorie malnutrition. 12.Chronic kidney disease, stage II. 13.History of breast cancer. 14. Encephalopathy PLAN IV fluids, gentle hydration continues No food by mouth as she has severe oropharyngeal dysphagia, now with audible gargle. continues Upper airway gurgle , unable to control secretions. HTN, medical management, stable BP today, vitals reviewed, afebrile Obtain GI consultation, recommends conservative treatment for now. will monitor labs, hgb 8.5, no acute changes Continue Keppra, consult neurology appreciate, possible abnormal eye movement continues. Minimal response until to tachtile stimuli. not alert. EEG shows mild to moderate encephalopathy. no active seizures. PUD prophy, pain management, currently patient is not alert enough to be asking for any pain management. She may possibly have shortness of breath at times palliative care team consult, spoke with daughter who states continue Full code , full agressive care. Unchanged for now. No family present during my visit. tube feedings via peg. Supportive care, SCDs for DVT prophylaxis. Discharge planning The patient's overall health is very poor. Her performance status is very low. She is bedridden. She is aphasic with severe oropharyngeal dysphagia, dependent for her care. We will try to reach out to the family to determine the overall goal of care. Condition guarded. The patient meets inpatient criteria. Without appropriate treatment she may develop severe pancreatitis or recurrent sepsis, acute respiratory failure. Discussed With: Nurse, Other (Dr. Posey, pt. seen on his behalf) (Eugenia Cortez) Assessment and Plan pt is seen & examined dsampson Bello blood c/s +ve C albican urine c/s +ve C albicans ID input appreciated cont IV diflucan EEG noted On keppra/dilantin cont Tube feeding aspiration precautions overall prognosis is very poor will f/u (Geri Posey MD) Eugenia Cortez Jul 12, 2016 12:43 Geri Posey MD Jul 12, 2016 16:30
--- NOTE | 2016-07-12 14:29 | MB ---
cc: HONEY SMITH MD DATE OF CONSULTATION: 07/12/2016. REASON FOR CONSULTATION: Fungemia. REQUESTING PHYSICIAN: Dr. Posey. HISTORY OF PRESENT ILLNESS: This is a 70-year-old black female who was admitted through the emergency department on June 17 2016. The patient presented with shortness of breath. She is a resident of a nursing facility. She has a history of a large MCA stroke with right-sided hemiparesis. She was recently discharged on July 06. She presented back to the emergency department on July 08, 2016. She was evaluated and chest x-ray showed mild suspected atelectasis or consolidation at the left base. White count was elevated at 14.4. She also had elevated heart rate of 129 on admission along with elevated white blood cell count and she had an abnormal urinalysis. Urine culture was obtained and it came back with Tamy albicans and blood culture also obtained on the same day on 07/08/2016 came back with Tamy albicans in one of four bottles. She was started on IV antibiotics and the white blood cell count has gradually improved. Today's white count is 10.7. The patient has a history of seizure disorder and has been on antiseizure medications. She was felt to have seizure activity and was seen by neurology. Currently the patient is lying in bed and is calm. She awakens to voice and follows with her eyes. She answers questions by shaking head yes or no. She makes no attempt to verbalize. She is somnolent and drifts back to sleep after she is awakened. Information is obtained from the medical record. PAST MEDICAL HISTORY: 1. Hypertension. 2. Gastroesophageal reflux disease (GERD). 3. Sleep apnea. 4. Depression. 5. History of breast cancer. 6. History of intracerebral bleed. 7. History of pancreatic pseudocyst. 8. Mastectomy. 9. Fulguration of Lorraine-Jaimes tear. 10. PEG-tube placement. ALLERGIES: Aspirin. MEDICATIONS: 1. Vancomycin. 2. Fluconazole. 3. Dilantin. 4. Azithromycin. 5. DuoNeb. 6. Lisinopril. 7. Lopressor. 8. Catapres. 9. Keppra. 10. Piperacillin / tazobactam. 11. Cardizem. SOCIAL HISTORY: No tobacco, no alcohol. No illicit drugs. The patient is a [facility] resident. FAMILY HISTORY: Unable to obtain. REVIEW OF SYSTEMS: Unable to obtain. PHYSICAL EXAMINATION: GENERAL: This is an elderly female who appears very somnolent. She is well-nourished. VITAL SIGNS: Temperature 98.4, blood pressure 135/63, respirations 18, heart rate 94. HEAD, EYES, EARS, NOSE, THROAT: Unable to fully assess since the patient cannot cooperate. The extraocular movements appear grossly intact. No icterus. Oropharynx has very dry mucosa. NECK: The neck is supple without adenopathy or masses. HEART: Regular S1 and S2. LUNGS: Rhonchi at both bases. The breath sounds are decreased at the left side. ABDOMEN: Bowel sounds present, soft, nontender. RECTAL: Not performed. EXTREMITIES: No clubbing or cyanosis. No edema. The left upper extremity appears mildly swollen at the forearm. SKIN: Warm and dry. NEUROLOGIC: Unable to assess. PSYCHIATRIC: Unable to assess. LABORATORY DATA: WBCs 10.7, platelet count 94,000, hemoglobin 8.5. Creatinine 0.97, BUN 10, sodium 148. IMAGING STUDIES: CT scan of the abdomen reveals stable cystic mass involving the proximal body of the pancreas without significant change compared to 2013. Small amount of free fluid in the pelvis. Hepatocellular disease of the liver which appears stable. IMPRESSION: 1. Candidemia. 2. Tamy albicans urinary tract infection. 3. Sepsis on admission indicated by tachycardia, leukocytosis and abnormal urinalysis being the foci of sepsis. RECOMMENDATIONS: 1. Continue Diflucan. 2. Discontinue Vancomycin. 3. Discontinue azithromycin. 4. Discontinue the piperacillin / tazobactam. 5. Monitor temperature. 6. Monitor white blood cell count. 7. Monitor clinical status. Thank you for this consultation. The patient's progress will be monitored and further recommendations will be given on followup. I will continue the fluconazole for ten days if the blood cultures on repeat are negative. Repeat blood cultures will be ordered today. Thank you for this consultation. Honey Smith MD FD/JUNO /1:35 PM /2:12 PM
--- NOTE | 2016-07-12 14:35 | HHI.PR ---
Review/Management Plan Neurochecks Increased Keppra to 750mg Q12h Dilantin 100mg Q8h Dilantin level next am Seizure precautions Diagnosis/Plan: Subjective Subjective Comments No acute events reported EEG is abnormal with slowing and left frontal sharp discharges Dilantin level is subtherapeutic 8.9 Active Medications Current Medications Medications (Trade) Dose Ordered Sig/Sharmila Route Start Time Stop Time Status Last Admin (Cardizem Inj/NS Inj) 125 ml @ 0 mls/hr TITRATE IV 07/08/16 16:15 07/09/16 17:17 (Catapres) 0.1 mg BID PO 07/08/16 21:00 07/12/16 08:32 (Keppra Liq) 500 mg HS PO 07/08/16 21:00 07/11/16 20:33 (Keppra Liq) 250 mg BID PO 07/08/16 21:00 07/12/16 08:32 (Prinivil) 20 mg DAILY PO 07/09/16 09:00 07/12/16 08:32 (NS Flush) 2 ml UNSCH PRN FLUSH 07/08/16 20:15 07/12/16 05:24 (NS Flush) 2 ml BID FLUSH 07/08/16 21:00 07/12/16 09:36 (Tylenol) 650 mg Q4H PRN PO 07/08/16 20:15 (Zofran Inj) 4 mg Q6H PRN IVP 07/08/16 20:15 (Heparin Inj) 5,000 units Q12H SQ 07/08/16 21:00 07/12/16 08:33 (Narcan Inj) 0.4 mg UNSCH PRN IV 07/08/16 20:15 Metoprolol Tartrate 25 mg 25 mg Q12HR G-TUBE 07/09/16 12:30 07/12/16 08:33 (NS 1000 ml Inj) 1,000 ml @ 100 mls/hr Q10H IV 07/09/16 12:30 07/12/16 10:52 (Morphine Inj) 2 mg Q6HR PRN IV PUSH 07/09/16 17:15 07/09/16 17:38 (Beneprotein Powder) 1 pack TID G-TUBE 07/11/16 09:00 07/12/16 13:00 Phenytoin Sodium 100 mg 100 mg Q8H IV 07/11/16 22:00 07/12/16 13:03 (Diflucan 400 Mg Premix Bag) 200 ml @ 100 mls/hr Q24H IV 07/11/16 22:00 07/11/16 23:16 Allergies Allergies Coded Allergies Aspirin (Verified Allergy, Severe, 06/17/16) *MDRO Multi-Drug Resistant Organism (Verified Adverse Reaction, Unknown, Cleared 05/2016, 06/26/16) Exam I&O / VS 07/11/16 07/11/16 07/12/16 15:00 23:00 07:00 Intake Total 0 ml 0 ml Output Total 600 ml 150 ml 350 ml Balance -600 ml -150 ml -350 ml Intake Oral 0 ml 0 ml Output Urine Total 600 ml 150 ml 350 ml Tube Feeding Residual Discard 0 ml # Bowel Movements 5 0 0 Vital Signs Date Time Temp Pulse Resp B/P Pulse Ox O2 Delivery O2 Flow Rate FiO2 07/12/16 08:02 92 07/12/16 08:00 98.4 94 18 135/63 95 07/12/16 07:39 100 Nasal Cannula 2.00 07/12/16 04:00 98.2 96 18 121/59 100 07/12/16 00:00 98.3 86 18 109/57 98 07/11/16 20:50 99 Nasal Cannula 2.00 07/11/16 20:17 89 07/11/16 20:00 97.5 94 18 121/65 97 07/11/16 16:00 98.2 60 20 94/52 100 Exam Comments Awake, alert, dysphasic right spastic weakness No change in neurologic exam Objective Micro and Labs Laboratory Tests Test 07/12/16 11:04 Phenytoin (Dilantin) Level 8.9 Date/Time Procedure Status Source Growth 07/08/16 18:11 Influenza Types A,B Antigen (ZIGGY) - Final Complete Nasal Washing NEGATIVE FOR FLU A AND B ANTIGEN.... 07/08/16 17:45 Urine Culture - Final Complete Urine Catheterized Urine Tamy Albicans 07/08/16 16:30 Aerobic Blood Culture - Preliminary Resulted Blood Peripheral NO GROWTH IN 4 DAYS 07/08/16 16:30 Anaerobic Blood Culture - Preliminary Resulted Blood Peripheral NO GROWTH IN 4 DAYS 07/08/16 16:28 Aerobic Blood Culture - Final Resulted Blood Peripheral Tamy Albicans 07/08/16 16:28 Anaerobic Blood Culture - Preliminary Resulted Blood Peripheral NO GROWTH IN 4 DAYS Jimena Griffith MD Jul 12, 2016 14:35
--- NOTE | 2016-07-12 16:24 | HHI.HCPN ---
Reason for visit a. To assist with evaluation and management of symptoms including: debility and shortness of breath. b. To assist medical decision maker(s) with: better understanding of current medical conditions; weighing benefits/burdens of medical treatment options; making medical treatment decisions. . (Jessie Bach) Subjective/Interval History Patient seen in her room, she was laying in bed in no acute distress. Briefly opening eyes to voice, mouthing yes/no and nodding head to yes/no questions. Easily back to sleep. Patient answered "no" when asked about pain or shortness of breath. Not following commands. No family at bedside. She remains afebrile , heart rate in the 80s to 90s, stable blood pressure, tolerating O2 via nasal cannula 2 L. Ongoing tube feeding. Neurology following, history of seizure disorder. EEG 07/12/16 showing mild to moderate encephalopathy, no seizure activity. ID -Dr. Smith consulted today secondary to fungemia. Urine culture positive for Tamy albicans, blood culture positive for fungi. Patient has been continued on Diflucan. Antibiotics discontinued. No new laboratory or imaging today. . Family/friend interactions Telephone call to patient's daughter Cat . This is a corrected phone number provided by [facility]. Daughter has been reached at this number previously. Left message in voicemail to return phone call. 16:32. Daughter Cat returned my phone call. Medical update provided. Review likely trajectory of illness to include progression of debility, frequent infections, frequent hospitalizations and likely secondary to complications given her state. Shared concerns regarding patient's overall poor prognosis her age, bed bound/dependent of care status, long-term resident, neurological deficits, recent hospitalizations, chronic comorbidities and profound physical deconditioning. Daughter verbalized understanding. Goals of care remains unchanged. Family electing to continue full aggressive care to include full code -intubation, mechanical ventilation and CPR- with hopes of returning patient to long-term facility. . (Jessie Bach) Advance Directives Living Will: Never completed Health Care Surrogate: Never completed Durable Power of Disaster Recovery Manager: Copy in medical record (Jessie Bach) Advance Directive Specifics Date completed: General power of deputy commonwealth's attorney completed on August 22, 2010. . Health Care Surrogate(s): As per daughter, no living will or healthcare surrogate designation has been completed. As per [place] statute, all 3 of patient's children would be healthcare decision-maker's. . Documented care wishes: No living will has been completed. . Significant change in goals: Full code. Continue aggressive care with hopes of returning to long-term facility. . (Jessie Bach) Objective Vital Signs Date Time Temp Pulse Resp B/P Pulse Ox O2 Delivery O2 Flow Rate FiO2 07/12/16 12:00 98.8 88 18 119/55 100 07/12/16 08:02 92 07/12/16 08:00 98.4 94 18 135/63 95 07/12/16 07:39 100 Nasal Cannula 2.00 07/12/16 04:00 98.2 96 18 121/59 100 07/12/16 00:00 98.3 86 18 109/57 98 07/11/16 20:50 99 Nasal Cannula 2.00 07/11/16 20:17 89 07/11/16 20:00 97.5 94 18 121/65 97 Intake & Output 07/12/16 07/12/16 07:00 19:00 Intake Total 0 ml 3307 ml Output Total 500 ml Balance -500 ml 3307 ml Intake Oral 0 ml IV Total 1898 ml Tube Feeding 1109 ml Other 300 ml Output Urine Total 500 ml # Bowel Movements 0 Physical Exam CONSTITUTIONAL/GENERAL: This is an elderly female laying in bed in no acute distress. She appears older than stated age. TUBES/LINES/DRAINS: PIV's, Rosales catheter, bilateral wrist restraints. SKIN: No jaundice, rashes, or lesions. No wounds seen anteriorly. Skin temperature appropriate. Not diaphoretic. HEAD: Atraumatic. Normocephalic. EYES: Pupils equal and round and reactive. No scleral icterus. No injection or drainage. ENT: Hearing appears grossly normal. Nose without bleeding or purulent drainage. Edentulous. NECK: Trachea midline. Supple. CARDIOVASCULAR: Irregular rate and rhythm without murmurs, gallops, or rubs. Peripheral pulses symmetric. RESPIRATORY/CHEST: Symmetric, unlabored respirations. Rhonchi left more than right. O2 via nasal cannula. GASTROINTESTINAL: Abdomen soft, non-tender, nondistended. No guarding. Bowel sounds present. PEG tube in place, site clean. Ongoing tube feeding. GENITOURINARY: Without palpable bladder distension. Rosales catheter in place. Urine amount of yellow output and Rosales bag. MUSCULOSKELETAL: Extremities without clubbing cyanosis. Muscle wasting to bilateral lower extremities. Right leg appears contracted. Bilateral foot drop. NEUROLOGICAL: Awake. Alert, opening eyes to verbal stimuli. Following some simple commands and answering to "yes/no" questions. PSYCHIATRIC: Unable to assess secondary to clinical condition. Appears calm. . (Jessie Bach) Diagnostic Tests Laboratory Laboratory Tests Test 07/10/16 07/11/16 07/11/16 07/12/16 14:00 00:27 07:53 11:04 White Blood Count 11.1 TH/MM3 10.7 TH/MM3 (4.0-11.0) (4.0-11.0) Red Blood Count 3.40 MIL/MM3 3.03 MIL/MM3 (4.00-5.30) (4.00-5.30) Hemoglobin 9.2 GM/DL 8.5 GM/DL (11.6-15.3) (11.6-15.3) Hematocrit 29.6 % 25.9 % (35.0-46.0) (35.0-46.0) Mean Corpuscular Volume 87.1 FL 85.3 FL (80.0-100.0) (80.0-100.0) Mean Corpuscular Hemoglobin 27.0 PG 28.0 PG (27.0-34.0) (27.0-34.0) Mean Corpuscular Hemoglobin 31.0 % 32.8 % Concent (32.0-36.0) (32.0-36.0) Red Cell Distribution Width 19.1 % 18.6 % (11.6-17.2) (11.6-17.2) Platelet Count 85 TH/MM3 94 TH/MM3 (150-450) (150-450) Mean Platelet Volume 10.7 FL 10.7 FL (7.0-11.0) (7.0-11.0) Sodium Level 147 MEQ/L 148 MEQ/L (136-145) (136-145) Potassium Level 4.3 MEQ/L 3.8 MEQ/L (3.5-5.1) (3.5-5.1) Chloride Level 116 MEQ/L 117 MEQ/L (98-107) (98-107) Carbon Dioxide Level 20.2 MEQ/L 21.8 MEQ/L (21.0-32.0) (21.0-32.0) Anion Gap 11 MEQ/L (5-15) 9 MEQ/L (5-15) Blood Urea Nitrogen 13 MG/DL (7-18) 10 MG/DL (7-18) Creatinine 0.96 MG/DL 0.97 MG/DL (0.50-1.00) (0.50-1.00) Estimat Glomerular Filtration 70 ML/MIN (>89) 69 ML/MIN (>89) Rate Random Glucose 90 MG/DL 96 MG/DL (74-106) (74-106) Calcium Level 8.1 MG/DL 8.1 MG/DL (8.5-10.1) (8.5-10.1) Lipase 142 U/L (73-393) Vancomycin Level Trough 19.1 MCG/ML (5.0-10.0) Phenytoin (Dilantin) Level 8.9 MCG/ML (10.0-20.0) (Jessie Bach) Result Diagram: 07/11/16 0753 07/11/16 0753 Microbiology Microbiology Date/Time Procedure Status Source Growth 07/08/16 18:11 Influenza Types A,B Antigen (ZIGGY) - Final Complete Nasal Washing NEGATIVE FOR FLU A AND B ANTIGEN.... 07/08/16 17:45 Urine Culture - Final Complete Urine Catheterized Urine Tamy Albicans 07/08/16 16:30 Aerobic Blood Culture - Preliminary Resulted Blood Peripheral NO GROWTH IN 4 DAYS 07/08/16 16:30 Anaerobic Blood Culture - Preliminary Resulted Blood Peripheral NO GROWTH IN 4 DAYS 07/08/16 16:28 Aerobic Blood Culture - Final Resulted Blood Peripheral Tamy Albicans 07/08/16 16:28 Anaerobic Blood Culture - Preliminary Resulted Blood Peripheral NO GROWTH IN 4 DAYS (Jessie Bach) Assessment and Plan Disease Oriented Problem List: (1) CVA (cerebral vascular accident) (2) Respiratory distress (3) Tachycardia with heart rate 121-140 beats per minute Symptom Scale: (1) Shortness of breath 0-10 Scale: Unable to quantify Comment: Currently tolerating O2 via nasal cannula. (2) Debility 0-10 Scale: Unable to quantify Comment: Progressive secondary to CVA, bedbound state. Pertinent Non-Medical Issues Psychosocial: . Resident of long-term facility. Has 3 children. Spiritual: Congregation. Legal: No living will completed. Ethical issues impacting care: No living will completed. . Important Contacts Emy Childress [phone]. . Prognosis Mrs. Childress is a 70-year-old female with a medical history significant of left MCA stroke with right-sided hemiparesis, COPD, schizoaffective disorder, dementia, history of of intracranial aneurysm bleed, hypertension, seizure disorder, liver cirrhosis who is a long-term resident at [facility] rehabilitation for the past 5 years. Patient presented to the ED on 07/09/16 with complaints of shortness of breath and was admitted for further management. Recent prolonged hospitalization from 06/17/16 to 07/06/16 secondary to acute respiratory distress and urosepsis. At that time patient required intubation and mechanical ventilation. Patient is full care, bedbound with a PPS of 30%. Overall prognosis is poor for an improved quality of life given patient's age, bedbound state, neurological deficits, multiple comorbidities and acute events. Patient is a very high risk for further decline, complications and . . Code Status: Full Code Plan * CODE STATUS: Full code. Risks, benefits and limitations of CPR, intubation and mechanical ventilation discussed with emy Shelton on 07/10/16 given patient's bedbound state and neurological deficit secondary to CVA. Family electing for continuation of full code at this time. * HEALTHCARE DECISION-MAKING: Patient incapacitated secondary to clinical condition. As per daughter, no living will or healthcare surrogate designation has been completed. As per [place] statute, all 3 of patient's children would be healthcare decision-maker's. Power of deputy commonwealth's attorney in chart, which does not include medical decision maker. * GOALS OF CARE: As per family, goals of treatment remain unchanged. Continue of aggressive care to include CPR, intubation and mechanical ventilation if medically indicated. Family hoping for clinical improvement with the goal of returning patient to long-term facility. 07/12/16-Emy Shelton returned my phone call. Medical update provided. Reviewed likely trajectory of illness to include progressive debility, frequent infections, frequent hospitalizations and likely secondary to complications. Shared concerns regarding patient' s overall poor prognosis given her age, bed bound/dependent of care status, long -term resident, neurological deficits, recent hospitalizations, chronic comorbidities and profound physical deconditioning. Daughter verbalized understanding. Goals of care remains unchanged. Family electing to continue full aggressive care to include full code -intubation, mechanical ventilation and CPR- with hopes of returning patient to long-term facility. * SYMPTOMS: == Debility, secondary to CVA in 2012 with right-sided hemiparesis, bedbound state, recent prolonged hospitalization. Likely to continue worsening. == Shortness of breath, history of COPD, recent hospitalization complicated by acute respiratory failure requiring intubation and mechanical ventilation. Currently tolerating O2 via nasal cannula. * Palliative care contact information has been provided to patient's daughter. * Palliative care will continue to follow-up as needed for further clarifications of goals of care as the clinical course evolves. . (Jessie Bach) Time Spent Total Floor Time (mins): 38 (Total time to include review of medical records, physical exam, and telephone conversation with patient's daughter.) >50% Counseling/Coord of Care: Yes (Jessie Bach) Attestation To help prompt me to consider important information that might be impacting today's encounter and assessment, information from prior notes written by myself or my colleagues may have been "brought forward" into today's note. My signature on this note, however, is an attestation that I personally performed the exam, history, and/or decision-making noted today, and, unless otherwise indicated, the interactions with patient, family, and staff as well as the review of records all occurred today. I also attest that the listed assessment and stated plan reflect my best clinical judgment today based on the combination of historical information, prior notes, and today's exam/ interactions. When time spent is documented, it refers only to time spent today by the signer, or if indicated, combined time spent today by collaborating physician/nurse practitioner. (Jessie Bach) Collaborating MD Comments Chart reviewed. Cased discussed with palliative care ESCALATOR SERVICE MECHANIC. Above ESCALATOR SERVICE MECHANIC note reviewed and I concur. . (Joe,Jessie Landry Jul 12, 2016 16:24 Julian Joe MD September 23, 2016 13:33
[2016-07-12] MEDS: levETIRAcetam 500 MG/5 ML UDC PO/TUBE SCH (22:30)
[2016-07-12] MEDS: FLUCONAZOLE 400 MG PREMIX BAG 200 ML IV SCH (22:30)
[2016-07-13] VITALS (11 sets, daily range): BP systolic 113–159; BP diastolic 54–74; PULSE 87–102; RESP 20–22; TEMP 97.8–98.9; O2SAT 95–100
[2016-07-13] MEDS: SODIUM CHLOR 0.9% 1000 ML INJ 1,000 ML IV SCH (01:41)
[2016-07-13] MEDS: PHENYTOIN INJ 100 MG/2 ML VIAL IV SCH ×3 (06:39→21:43)
[2016-07-13] MEDS: RESP: ALBUTEROL 2.5 MG/IPRATROPIUM 0.5 MG NEB (SCH) NEB ×2 (08:58→13:14)
[2016-07-13] MEDS: cloNIDine HCL 0.1 MG TAB PO SCH ×2 (09:00→21:36)
[2016-07-13] MEDS: METOPROLOL TARTRATE 25 MG TAB G-TUBE SCH ×2 (09:00→21:35)
[2016-07-13] MEDS: HEPARIN SODIUM - SQ 10,000 UNITS/ML VIAL SQ SCH ×2 (09:00→21:36)
[2016-07-13] MEDS: BENEPROTEIN POWDER 1 PACK G-TUBE SCH ×3 (09:00→16:11)
[2016-07-13] MEDS: LISINOPRIL 20 MG TAB PO SCH (09:00)
[2016-07-13] MEDS: SODIUM CHLORIDE 0.9% FLUSH 5 ML FLUSH FLUSH SCH ×2 (09:00→21:00)
[2016-07-13] MEDS: levETIRAcetam 500 MG/5 ML UDC PO/TUBE SCH ×2 (09:00→21:36)
[2016-07-13 11:37] LABS: HEMATOCRIT 22.2 % (35.0-46.0); MEAN CELL VOLUME 86.1 FL (80.0-100.0); MEAN CORPUSCULAR HEMOGLOBIN 27.8 PG (27.0-34.0); MEAN CORPUSCULAR HGB CONC 32.3 % (32.0-36.0); PLATELET COUNT 103 TH/MM3 (150-450); RED BLOOD COUNT 2.57 MIL/MM3 (4.00-5.30); RED CELL DISTRIBUTION WIDTH 19.6 % (11.6-17.2); REVIEW FLAG FINAL; WHITE BLOOD COUNT 9.2 TH/MM3 (4.0-11.0)
[2016-07-13 12:14] LABS: POTASSIUM 3.9 MEQ/L (3.5-5.1)
[2016-07-13] MEDS ORDERED: SODIUM CHLOR 0.9% 250 ML INJ 250 ML IV ONE (12:30)
--- NOTE | 2016-07-13 12:43 | HHI.PR ---
Subjective Subjective Remarks non verbal tolerating tube feedings well agitated overnight, refused lab work, was combative unable to obtain ROS no fever reported Review of Systems Constitutional Constitutional Remarks unable to obtain ROS Vitals/Results Intake & Output 07/12/16 07/12/16 07/13/16 15:00 23:00 07:00 Intake Total 3307 ml 1048 ml 1215 ml Output Total 500 ml 200 ml Balance 2807 ml 848 ml 1215 ml Intake Oral 0 ml IV Total 1898 ml 803 ml 884 ml Tube Feeding 1109 ml 245 ml 331 ml Other 300 ml Output Urine Total 500 ml 200 ml # Bowel Movements 2 1 1 Vital Signs Vital Signs Date Time Temp Pulse Resp B/P Pulse Ox O2 Delivery O2 Flow Rate FiO2 07/13/16 08:00 98.8 100 20 148/66 99 07/13/16 04:00 98.6 95 20 135/58 100 07/13/16 00:00 97.8 87 20 121/54 96 07/12/16 20:00 104 07/12/16 20:00 98.1 100 18 123/54 98 07/12/16 19:16 100 Nasal Cannula 2.00 07/12/16 16:00 98.9 99 18 113/58 97 CBC/BMP: 07/13/16 1130 07/13/16 1130 Lab Results Laboratory Tests Test 07/13/16 11:30 White Blood Count 9.2 TH/MM3 Red Blood Count 2.57 MIL/MM3 Hemoglobin 7.2 GM/DL Hematocrit 22.2 % Mean Corpuscular Volume 86.1 FL Mean Corpuscular Hemoglobin 27.8 PG Mean Corpuscular Hemoglobin 32.3 % Concent Red Cell Distribution Width 19.6 % Platelet Count 103 TH/MM3 Mean Platelet Volume 10.6 FL Sodium Level 148 MEQ/L Potassium Level 3.9 MEQ/L Chloride Level 120 MEQ/L Carbon Dioxide Level 20.0 MEQ/L Anion Gap 8 MEQ/L Blood Urea Nitrogen 6 MG/DL Creatinine 0.96 MG/DL Estimat Glomerular Filtration 70 ML/MIN Rate Random Glucose 110 MG/DL Calcium Level 7.4 MG/DL Phenytoin (Dilantin) Level 10.3 MCG/ML Microbiology Microbiology 07/13/16 Aerobic Blood Culture, Received Pending 07/13/16 Anaerobic Blood Culture, Received Pending 3/18/17 Aerobic Blood Culture, Received Pending 07/13/16 Anaerobic Blood Culture, Received Pending Physical Exam General General Appearance: No Acute Distress Eyes Eye Exam: Pupils Equal, Pupils Reactive Ears & Nose Ears & Nose Exam: Nasal Mucosa [place] Throat Throat Exam: Oral Mucosa [place] & Moist Neck Neck Exam: Neck Supple, Trachea Midline Pulmonary Resp Exam: Decreased Bases, Poor Inspiratory Effort Cardiology CV Exam: Regular Gastrointestinal/Abdomen GI Exam: Soft, Non-Tender, Bowel Sounds Present, Positive Bowel Movement, Non- Distended GI Remarks Peg tube with TF Genitourinary Remarks LAGUERRE Musculoskeletal MS Exam: Joints Intact, Atrophy Integumentary Skin Exam: Warm, Dry Extremeties Extremities Exam: Pedal Pulses Palpable, Trace Edema Neurologic Neuro Exam: Awake Neuro Remarks right hemiplegia VTE Prophylaxis VTE Prophylaxis Device: SCDs VTE Prophylaxis Meds: Heparin Assessment/Plan Assessment/Plan 1. Shortness of breath,low air volumes, tachypnea and tachycardia, etiology unclear, recurrent infection, possible early pneumonia, probable aspiration. 2. elevated lipase, possible pancreatitis. This could be causing pain resulting in tachycardia and tachypnea. 3. Respiratory alkalosis. 4. Hypertension., 5. History of dense CVA with right hemiplegia. 6. History of liver disease. 7. History of depression. 8. History of seizure disorder, recurrent seizures 9. Recent respiratory failure and pneumonia. 10.Poor performance status. 11.Severe protein calorie malnutrition. 12.Chronic kidney disease, stage II. 13.History of breast cancer. 14. Encephalopathy 15. Hypernatremia 16. Thrombocytopenia PLAN continue with tube feeding Dec. IVF to KVO Na level elevated, 148 add free water flushes blood c/s +ve C albican urine c/s +ve C albicans ID input appreciated cont IV diflucan cdiff negative oxygen PRN Duonebs PRN Appreciate GI input Not a candidate for endoscopic ultrasound Recommend conservative treatment signed off Noted anemic, HH 7.2/22.2 hemoccult 07/05 negative will check iron stores tx 1 unit PRBC today continue Pham Jackson Appreciate neuro input seizure precautions EEG shows mild to moderate encephalopathy. no active seizures. PPI for GI prophylaxis Heparin for DVT prophylaxis Appreciate palliative care input family request full aggressive care for now Poor prognosis Labs in am D/W RN D/W Dr. Posey This patient was seen by myself and Dr. Posey, this note is written on his behalf Yessy Nicole Jul 13, 2016 12:43
[2016-07-13] MEDS: DILTIAZEM HCL 30 MG TAB PO SCH ×2 (17:34→21:39)
[2016-07-13] MEDS: FLUCONAZOLE 400 MG PREMIX BAG 200 ML IV SCH (21:43)
[2016-07-14] VITALS (8 sets, daily range): BP systolic 130–157; BP diastolic 62–78; PULSE 96–119; RESP 16–28; TEMP 97.9–98.6; O2SAT 93–98
[2016-07-14] MEDS ORDERED: PHARMACY ORDERED LAB XX ONE (00:45)
[2016-07-14] MEDS: SODIUM CHLOR 0.9% 1000 ML INJ 1,000 ML IV SCH (01:54)
[2016-07-14] MEDS: RESP: ALBUTEROL 2.5 MG/IPRATROPIUM 0.5 MG NEB (PRN) NEB (02:11)
[2016-07-14] MEDS: PANTOPRAZOLE SODIUM 40 MG VIAL IV SCH ×3 (05:26→22:46)
[2016-07-14] MEDS: PHENYTOIN INJ 100 MG/2 ML VIAL IV SCH ×3 (05:26→22:46)
[2016-07-14 07:46] LABS: RETIC % 1.8 % (0.4-3.0); REVIEW FLAG FINAL
[2016-07-14 08:24] LABS: FERRITIN 86 NG/ML (8-252); TRANSFERRIN IRON PROFILE 135 MG/DL (200-360)
[2016-07-14] MEDS: METOPROLOL TARTRATE 25 MG TAB G-TUBE SCH ×2 (09:00→22:46)
[2016-07-14] MEDS: cloNIDine HCL 0.1 MG TAB PO SCH ×2 (09:00→22:46)
[2016-07-14] MEDS: HEPARIN SODIUM - SQ 10,000 UNITS/ML VIAL SQ SCH ×2 (09:00→22:46)
[2016-07-14] MEDS: SODIUM CHLORIDE 0.9% FLUSH 5 ML FLUSH FLUSH SCH ×2 (09:00→21:00)
[2016-07-14] MEDS: ONDANSETRON HCL 4 MG/2 ML VIAL IVP PRN ×2 (09:00→17:31)
[2016-07-14] MEDS: LISINOPRIL 20 MG TAB PO SCH (09:00)
[2016-07-14] MEDS: DILTIAZEM HCL 30 MG TAB PO SCH ×4 (09:00→22:46)
[2016-07-14] MEDS: levETIRAcetam 500 MG/5 ML UDC PO/TUBE SCH ×2 (09:00→22:45)
[2016-07-14] MEDS: BENEPROTEIN POWDER 1 PACK G-TUBE SCH ×3 (09:00→17:02)
--- NOTE | 2016-07-14 10:30 | HHI.PR ---
Subjective Subjective Remarks non verbal abd. distended per nursing, projective vomiting last night tube feeds on hold noted with some cough, coarse breath sounds no fever unable to obtain ROS Review of Systems Constitutional Constitutional Remarks unable to obtain ROS Vitals/Results Intake & Output 07/13/16 07/13/16 07/14/16 15:00 23:00 07:00 Intake Total 0 ml Output Total 800 ml 450 ml 700 ml Balance -800 ml -450 ml -700 ml Intake Oral 0 ml Output Urine Total 800 ml 450 ml 700 ml # Bowel Movements 1 1 Vital Signs Vital Signs Date Time Temp Pulse Resp B/P Pulse Ox O2 Delivery O2 Flow Rate FiO2 07/14/16 08:00 98.2 113 24 156/78 95 07/14/16 04:00 98.3 108 20 154/74 97 07/14/16 02:12 93 21 07/14/16 00:00 97.9 96 20 136/62 98 07/13/16 22:15 98.3 94 20 159/74 96 07/13/16 20:13 98.9 99 20 148/67 99 07/13/16 20:10 96 21 07/13/16 20:07 98.1 102 20 154/70 95 07/13/16 19:46 98.9 99 20 148/67 99 07/13/16 16:33 97.8 88 22 124/59 100 07/13/16 16:33 97.8 88 22 124/59 100 07/13/16 12:00 98.0 87 20 113/56 100 CBC/BMP: 07/13/16 1130 07/13/16 1130 Lab Results Laboratory Tests Test 07/13/16 07/13/16 07/14/16 11:30 14:15 06:31 White Blood Count 9.2 TH/MM3 Red Blood Count 2.57 MIL/MM3 Hemoglobin 7.2 GM/DL Hematocrit 22.2 % Mean Corpuscular Volume 86.1 FL Mean Corpuscular Hemoglobin 27.8 PG Mean Corpuscular Hemoglobin 32.3 % Concent Red Cell Distribution Width 19.6 % Platelet Count 103 TH/MM3 Mean Platelet Volume 10.6 FL Sodium Level 148 MEQ/L Potassium Level 3.9 MEQ/L Chloride Level 120 MEQ/L Carbon Dioxide Level 20.0 MEQ/L Anion Gap 8 MEQ/L Blood Urea Nitrogen 6 MG/DL Creatinine 0.96 MG/DL Estimat Glomerular Filtration 70 ML/MIN Rate Random Glucose 110 MG/DL Calcium Level 7.4 MG/DL Protein Corrected Calcium 8.0 MG/DL Total Protein 6.0 GM/DL Phenytoin (Dilantin) Level 10.3 MCG/ML 11.3 MCG/ML Blood Type O POSITIVE Antibody Screen NEGATIVE Crossmatch Leukocyte-Reduced Red Blood Cells Blood Bank Comment Reticulocyte Count 1.8 % Absolute Reticulocyte Count 56.1 MIL/L Iron Level 41 MCG/DL Total Iron Binding Capacity 189 MCG/DL Percent Iron Saturation 21.7 % Ferritin 86 NG/ML Vitamin B12 Level 1042 PG/ML Microbiology Microbiology 07/13/16 Aerobic Blood Culture, Received Pending 07/13/16 Anaerobic Blood Culture, Received Pending 07/13/16 Aerobic Blood Culture, Received Pending 07/13/16 Anaerobic Blood Culture, Received Pending 07/14/16 Gastric Occult Blood - Final, Complete GASTROCCULT POSITIVE Physical Exam General General Appearance: No Acute Distress Eyes Eye Exam: Pupils Equal, Pupils Reactive Ears & Nose Ears & Nose Exam: Nasal Mucosa [place] Throat Throat Exam: Oral Mucosa [place] & Moist Neck Neck Exam: Neck Supple, Trachea Midline Pulmonary Resp Exam: Decreased Bases, Poor Inspiratory Effort Resp Remarks coarse upper lobes bilat Cardiology CV Exam: Regular Gastrointestinal/Abdomen GI Exam: Bowel Sounds Present, Positive Bowel Movement, Distended, Bowel Sounds Hypoactive GI Remarks Peg tube Genitourinary Remarks [place] Musculoskeletal MS Exam: Joints Intact, Atrophy Integumentary Skin Exam: Warm, Dry Extremeties Extremities Exam: Pedal Pulses Palpable, Trace Edema Neurologic Neuro Exam: Awake Neuro Remarks right hemiplegia VTE Prophylaxis VTE Prophylaxis Device: SCDs VTE Prophylaxis Meds: Heparin Assessment/Plan Assessment/Plan 1. Shortness of breath,low air volumes, tachypnea and tachycardia, etiology unclear, recurrent infection, possible early pneumonia, probable aspiration. 2. elevated lipase, possible pancreatitis. This could be causing pain resulting in tachycardia and tachypnea. 3. Respiratory alkalosis. 4. Hypertension., 5. History of dense CVA with right hemiplegia. 6. History of liver disease. 7. History of depression. 8. History of seizure disorder, recurrent seizures 9. Recent respiratory failure and pneumonia. 10.Poor performance status. 11.Severe protein calorie malnutrition. 12.Chronic kidney disease, stage II. 13.History of breast cancer. 14. Encephalopathy 15. Hypernatremia 16. Thrombocytopenia PLAN continue with NS at 30/hr Na 148 abd. distended, had vomiting hold TF Keep NPO for now KUB now, R/O ileus blood c/s +ve C albican urine c/s +ve C albicans ID input appreciated cont IV diflucan cdiff negative oxygen PRN Duonebs PRN Appreciate GI input Not a candidate for endoscopic ultrasound Recommend conservative treatment signed off Noted anemic, hemoccult 07/05 negative low iron stores HH 7.2/22.2--S/P 1 unit PRBC 07/13 HH pending continue Keppra, Dilantin Appreciate neuro input seizure precautions EEG shows mild to moderate encephalopathy. no active seizures. PPI for GI prophylaxis Heparin for DVT prophylaxis Appreciate palliative care input family request full aggressive care for now Poor prognosis Labs pending D/W RN D/W Dr. Posey This patient was seen by myself and Dr. Posey, this note is written on his behalf Yessy Nicole Jul 14, 2016 10:30
--- NOTE | 2016-07-14 11:36 | RADRPT ---
EXAM DATE/TIME: 07/14/2016 10:23 [place] COMPARISON: No previous studies available for comparison. INDICATIONS : Abdominal pain and distention. MEDICAL HISTORY : Cirrhosis. SURGICAL HISTORY : None. ENCOUNTER: Initial ACUITY: 1 day PAIN SCORE: Non-responsive. LOCATION: Bilateral abdomen. FINDINGS: Supine view of the abdomen was performed. Gaseous distention of multiple bowel loops. No abnormal mas ses, calcifications, or organomegaly is seen. Small left pleural effusion. Old left-sided rib fractur es.. CONCLUSION: Mild gaseous distention of multiple bowel loops without definite obstruction. Gideon De La Fuente MD on July 14, 2016 at 11:33 Board Certified Radiologist. This report was verified electronically.
[2016-07-14] MEDS: METOCLOPRAMIDE HCL 10 MG/2 ML VIAL IV PUSH SCH ×2 (16:00→22:47)
--- NOTE | 2016-07-14 19:03 | HHI.GIFU ---
Subjective Remarks Appears to be comfortable in bed awake noncommunicative Objective Vitals I&O Vital Signs Date Time Temp Pulse Resp B/P Pulse Ox O2 Delivery O2 Flow Rate FiO2 07/14/16 16:00 98.6 96 28 152/78 94 07/14/16 12:00 98.4 119 24 157/76 93 07/14/16 09:00 109 07/14/16 08:00 98.2 113 24 156/78 95 07/14/16 04:00 98.3 108 20 154/74 97 07/14/16 02:12 93 21 07/14/16 00:00 97.9 96 20 136/62 98 07/13/16 22:15 98.3 94 20 159/74 96 07/13/16 20:13 98.9 99 20 148/67 99 07/13/16 20:10 96 21 07/13/16 20:07 98.1 102 20 154/70 95 07/13/16 19:46 98.9 99 20 148/67 99 I/O 07/13/16 07/13/16 07/13/16 07/14/16 07/14/16 07/14/16 07:00 15:00 23:00 07:00 15:00 23:00 Intake Total 1215 ml 0 ml 0 ml Output Total 800 ml 450 ml 700 ml 700 ml Balance 1215 ml -800 ml -450 ml -700 ml -700 ml Intake Oral 0 ml 0 ml IV Total 884 ml Tube Feeding 331 ml Output Urine Total 800 ml 450 ml 700 ml 700 ml # Bowel Movements 1 1 1 4 Laboratory Laboratory Tests Test 07/14/16 06:31 Reticulocyte Count 1.8 Absolute Reticulocyte Count 56.1 Iron Level 41 Total Iron Binding Capacity 189 Percent Iron Saturation 21.7 Ferritin 86 Vitamin B12 Level 1042 Phenytoin (Dilantin) Level 11.3 Date/Time Procedure Status Source Growth 07/14/16 04:48 Gastric Occult Blood - Final Complete Gastric GASTROCCULT POSITIVE 07/13/16 11:30 Aerobic Blood Culture - Preliminary Resulted Blood Peripheral NO GROWTH IN 1 DAY 07/13/16 11:30 Anaerobic Blood Culture - Preliminary Resulted Blood Peripheral NO GROWTH IN 1 DAY Imaging Last 48 hours Impressions Abdomen X-Ray 07/14/16 0000 Signed Impressions: Service Date/Time: Thursday, July 14, 2016 10:23 - CONCLUSION: Mild gaseous distention of multiple bowel loops without definite obstruction. Gideon De La Fuente MD Physical Exam HEENT: Normocephalic; atraumatic; no jaundice. CHEST: CTA some rhonchi on occasion CARDIAC: RRR ABDOMEN: Soft, nondistended, nontender; no hepatosplenomegaly; bowel sounds are present in all four quadrants. PEG tube in place PEG site clean EXTREMITIES: No clubbing, cyanosis, or edema. SKIN: Normal; no rash; no jaundice. FREIGHT ASSOCIATE: Nonverbal, nods at times. Assessment and Plan Plan ASSESSMENT: - Pancreatic cystic mass. Abdomen/Pelvis CT (07/08/16)----> 1. Bibasilar atelectasis. 2. Stable cystic mass involving the proximal body of the pancreas. No significant change compared to 2013. 3. Small amount of free fluid in the pelvis. 4. Hepatocellular disease of the liver which appears to be stable. 5. No new or significant changes. This mass has been stable for many years. The patient's lipase has normalized. Not a candidate for endoscopic ultrasound. Recommend conservative measures. Today's labs pending. -Worsening Anemia with Gastroccult positive. PLAN: -No obvious acute GI bleed and patient appears to be hemodynamically stable - Monitor labs -We will consider endoscopy but will need to obtain consent and will need to talk to POA - Recommend conservative treatment -Recommend continued PPI James Madrid MD Jul 14, 2016 19:03
[2016-07-14] MEDS: FLUCONAZOLE 400 MG PREMIX BAG 200 ML IV SCH (22:46)
[2016-07-15] VITALS (9 sets, daily range): BP systolic 145–164; BP diastolic 67–86; PULSE 90–109; RESP 20–24; TEMP 97.6–98.3; O2SAT 93–97
[2016-07-15] MEDS: SODIUM CHLOR 0.9% 1000 ML INJ 1,000 ML IV SCH (01:54)
[2016-07-15] MEDS: METOCLOPRAMIDE HCL 10 MG/2 ML VIAL IV PUSH SCH ×3 (05:27→20:40)
[2016-07-15] MEDS: PHENYTOIN INJ 100 MG/2 ML VIAL IV SCH ×3 (05:27→20:41)
[2016-07-15 06:07] LABS: HEMATOCRIT 26.8 % (35.0-46.0); MEAN CELL VOLUME 84.9 FL (80.0-100.0); MEAN CORPUSCULAR HEMOGLOBIN 27.8 PG (27.0-34.0); MEAN CORPUSCULAR HGB CONC 32.8 % (32.0-36.0); PLATELET COUNT 114 TH/MM3 (150-450); RED BLOOD COUNT 3.16 MIL/MM3 (4.00-5.30); RED CELL DISTRIBUTION WIDTH 19.1 % (11.6-17.2); REVIEW FLAG FINAL; WHITE BLOOD COUNT 8.9 TH/MM3 (4.0-11.0)
[2016-07-15 06:30] LABS: BICARBONATE 23.4 MEQ/L (21.0-32.0); POTASSIUM 3.4 MEQ/L (3.5-5.1)
--- NOTE | 2016-07-15 09:29 | HHI.PR ---
Subjective Subjective Remarks non verbal abd. less distended no vomiting reported had one bms overnight tube feeds on hold no fever unable to obtain ROS Review of Systems Constitutional Constitutional Remarks unable to obtain ROS Vitals/Results Intake & Output 07/14/16 07/14/16 07/15/16 15:00 23:00 07:00 Intake Total 0 ml 0 ml 0 ml Output Total 700 ml 350 ml 500 ml Balance -700 ml -350 ml -500 ml Intake Oral 0 ml 0 ml 0 ml Output Urine Total 700 ml 350 ml 500 ml # Bowel Movements 4 0 1 Vital Signs Vital Signs Date Time Temp Pulse Resp B/P Pulse Ox O2 Delivery O2 Flow Rate FiO2 07/15/16 04:00 97.7 103 20 157/67 93 07/15/16 00:00 97.7 97 20 151/67 97 07/14/16 20:00 98.2 101 16 130/77 95 07/14/16 16:00 98.6 96 28 152/78 94 07/14/16 12:00 98.4 119 24 157/76 93 CBC/BMP: 07/15/16 0522 07/15/16 0522 Lab Results Laboratory Tests Test 07/15/16 05:22 White Blood Count 8.9 TH/MM3 Red Blood Count 3.16 MIL/MM3 Hemoglobin 8.8 GM/DL Hematocrit 26.8 % Mean Corpuscular Volume 84.9 FL Mean Corpuscular Hemoglobin 27.8 PG Mean Corpuscular Hemoglobin 32.8 % Concent Red Cell Distribution Width 19.1 % Platelet Count 114 TH/MM3 Mean Platelet Volume 10.3 FL Sodium Level 150 MEQ/L Potassium Level 3.4 MEQ/L Chloride Level 117 MEQ/L Carbon Dioxide Level 23.4 MEQ/L Anion Gap 10 MEQ/L Blood Urea Nitrogen 5 MG/DL Creatinine 0.88 MG/DL Estimat Glomerular Filtration 77 ML/MIN Rate Random Glucose 72 MG/DL Calcium Level 8.0 MG/DL Physical Exam General General Appearance: No Acute Distress Eyes Eye Exam: Pupils Equal, Pupils Reactive Ears & Nose Ears & Nose Exam: Nasal Mucosa [place] Throat Throat Exam: Oral Mucosa [place] & Moist Neck Neck Exam: Neck Supple, Trachea Midline Pulmonary Resp Exam: Decreased Bases, Poor Inspiratory Effort Resp Remarks coarse upper lobes bilat Cardiology CV Exam: Regular Gastrointestinal/Abdomen GI Exam: Bowel Sounds Present, Positive Bowel Movement, Distended, Bowel Sounds Hyperactive GI Remarks Peg tube Genitourinary Remarks [place] Musculoskeletal MS Exam: Joints Intact, Atrophy Integumentary Skin Exam: Warm, Dry Extremeties Extremities Exam: Pedal Pulses Palpable, Trace Edema Neurologic Neuro Exam: Awake Neuro Remarks right hemiplegia VTE Prophylaxis VTE Prophylaxis Device: SCDs VTE Prophylaxis Meds: Heparin Assessment/Plan Assessment/Plan 1. Shortness of breath,low air volumes, tachypnea and tachycardia, etiology unclear, recurrent infection, possible early pneumonia, probable aspiration. 2. elevated lipase, possible pancreatitis. This could be causing pain resulting in tachycardia and tachypnea. 3. Respiratory alkalosis. 4. Hypertension., 5. History of dense CVA with right hemiplegia. 6. History of liver disease. 7. History of depression. 8. History of seizure disorder, recurrent seizures 9. Recent respiratory failure and pneumonia. 10.Poor performance status. 11.Severe protein calorie malnutrition. 12.Chronic kidney disease, stage II. 13.History of breast cancer. 14. Encephalopathy 15. Hypernatremia 16. Thrombocytopenia 17. Abd distension, ? ileus 18. Anemia, gastroccult + PLAN Na 150 change to D5W at 42/hr abd. distended, had vomiting-better today abd. xray ? ileus will start on trickle feedings continue Reglan blood c/s +ve C albican urine c/s +ve C albicans ID input appreciated cont IV diflucan cdiff negative oxygen PRN Duonebs PRN Appreciate GI input Not a candidate for endoscopic ultrasound Recommend conservative treatment reconsult for anemia, continue the conservative mgt. no active bleeding. Noted anemic, hemoccult 07/05 negative gastroccult + low iron stores HH 7.2/22.2--S/P 1 unit PRBC 07/13 HH stable, 8.8/26.8 continue Keppra, Dilantin Appreciate neuro input seizure precautions EEG shows mild to moderate encephalopathy. no active seizures. PPI for GI prophylaxis Heparin for DVT prophylaxis Appreciate palliative care input family request full aggressive care for now Poor prognosis labs in am D/W RN D/W Dr. Posey This patient was seen by myself and Dr. Posey, this note is written on his behalf Yessy Nicole Jul 15, 2016 09:28
[2016-07-15] MEDS: SODIUM CHLORIDE 0.9% FLUSH 5 ML FLUSH FLUSH SCH ×2 (09:52→20:42)
[2016-07-15] MEDS: POTASSIUM CHLOR 10 MEQ PREMIX 100 ML IV ONE ×2 (09:53→13:19)
[2016-07-15] MEDS: DEXTROSE 5% IN WATE 1000ML INJ 1,000 ML IV SCH ×2 (09:54→13:19)
[2016-07-15] MEDS: PANTOPRAZOLE SODIUM 40 MG VIAL IV SCH ×2 (09:54→20:40)
[2016-07-15] MEDS: cloNIDine HCL 0.1 MG TAB PO SCH ×2 (09:54→20:42)
[2016-07-15] MEDS: DILTIAZEM HCL 30 MG TAB PO SCH ×4 (09:54→20:42)
[2016-07-15] MEDS: METOPROLOL TARTRATE 25 MG TAB G-TUBE SCH ×2 (09:54→20:42)
[2016-07-15] MEDS: levETIRAcetam 500 MG/5 ML UDC PO/TUBE SCH ×2 (09:55→20:39)
[2016-07-15] MEDS: LISINOPRIL 20 MG TAB PO SCH (09:55)
[2016-07-15] MEDS: HEPARIN SODIUM - SQ 10,000 UNITS/ML VIAL SQ SCH ×2 (10:06→20:40)
[2016-07-15] MEDS ORDERED: LORazepam 0.5 MG TAB PO ONE (12:00)
--- NOTE | 2016-07-15 12:19 | HHI.GIFU ---
Subjective Remarks Resting in bed. No distress. TF going at 10cc/hr. Attempted to call daughter , no response message left for her to return call. (Fernanda Tucker [place]OSS) Objective Vitals I&O Vital Signs Date Time Temp Pulse Resp B/P Pulse Ox O2 Delivery O2 Flow Rate FiO2 07/15/16 08:00 97.6 109 24 164/79 93 07/15/16 04:00 97.7 103 20 157/67 93 07/15/16 00:00 97.7 97 20 151/67 97 07/14/16 20:00 98.2 101 16 130/77 95 07/14/16 16:00 98.6 96 28 152/78 94 I/O 07/14/16 07/14/16 07/14/16 07/15/16 07/15/16 07/15/16 07:00 15:00 23:00 07:00 15:00 23:00 Intake Total 0 ml 0 ml 0 ml Output Total 700 ml 700 ml 350 ml 500 ml Balance -700 ml -700 ml -350 ml -500 ml Intake Oral 0 ml 0 ml 0 ml Output Urine Total 700 ml 700 ml 350 ml 500 ml # Bowel Movements 1 4 0 1 Laboratory Laboratory Tests Test 07/15/16 05:22 White Blood Count 8.9 Red Blood Count 3.16 Hemoglobin 8.8 Hematocrit 26.8 Mean Corpuscular Volume 84.9 Mean Corpuscular Hemoglobin 27.8 Mean Corpuscular Hemoglobin 32.8 Concent Red Cell Distribution Width 19.1 Platelet Count 114 Mean Platelet Volume 10.3 Sodium Level 150 Potassium Level 3.4 Chloride Level 117 Carbon Dioxide Level 23.4 Anion Gap 10 Blood Urea Nitrogen 5 Creatinine 0.88 Estimat Glomerular Filtration 77 Rate Random Glucose 72 Calcium Level 8.0 Date/Time Procedure Status Source Growth 07/14/16 04:48 Gastric Occult Blood - Final Complete Gastric GASTROCCULT POSITIVE 07/13/16 11:30 Aerobic Blood Culture - Preliminary Resulted Blood Peripheral NO GROWTH IN 2 DAYS 07/13/16 11:30 Anaerobic Blood Culture - Preliminary Resulted Blood Peripheral NO GROWTH IN 2 DAYS Imaging Last Impressions Abdomen X-Ray 07/14/16 0000 Signed Impressions: Service Date/Time: Thursday, July 14, 2016 10:23 - CONCLUSION: Mild gaseous distention of multiple bowel loops without definite obstruction. Gideon De La Fuente MD Chest X-Ray 3/13/17 1554 Signed Impressions: Service Date/Time: Friday, July 08, 2016 16:33 - CONCLUSION: Mild suspected atelectasis or consolidation at the left base. Kye Montiel MD CT Angiography 07/08/16 0000 Signed Impressions: Service Date/Time: Friday, July 08, 2016 18:29 - CONCLUSION: 1. Limited study from motion artifact. No definite PE in the main pulmonary arteries. 2. Mild bibasilar infiltrates. Edilson Solis MD Abdomen/Pelvis CT 07/08/16 0000 Signed Impressions: Service Date/Time: Friday, July 08, 2016 18:29 - CONCLUSION: 1. Bibasilar atelectasis. 2. Stable cystic mass involving the proximal body of the pancreas. No significant change compared to 2012. 3. Small amount of free fluid in the pelvis. 4. Hepatocellular disease of the liver which appears to be stable. 5. No new or significant changes. Edilson Solis MD Physical Exam HEENT: Normocephalic; atraumatic; no jaundice. CHEST: CTA some rhonchi on occasion CARDIAC: RRR ABDOMEN: Soft, nondistended, nontender; no hepatosplenomegaly; bowel sounds are present in all four quadrants. PEG tube in place PEG site clean EXTREMITIES: No clubbing, cyanosis, or edema. SKIN: Normal; no rash; no jaundice. GAS SCRUBBER OPERATOR: Nonverbal (Fernanda Tucker) Assessment and Plan Plan ASSESSMENT: - Pancreatic cystic mass. Abdomen/Pelvis CT (07/08/16)----> 1. Bibasilar atelectasis. 2. Stable cystic mass involving the proximal body of the pancreas. No significant change compared to 2012. 3. Small amount of free fluid in the pelvis. 4. Hepatocellular disease of the liver which appears to be stable. 5. No new or significant changes. This mass has been stable for many years. The patient's lipase has normalized. Not a candidate for endoscopic ultrasound and would recommend conservative measures. -Worsening Anemia with Gastroccult positive. HH 8.8/26.8. Attempted to contact daughter Cat Childress at [phone] to d/w further evaluation with egd- procedure, risks, benefits. There was no answer , message left for her to return call. PLAN: - TF as tolerated - PPI - Monitor HH - Transfuse as necessary - Consider EGD after this is discussed with POA and consents obtained- attempted to call, no answer, message left - Supportive care - Further recommendations to follow based on results of above - Pt seen and examined by Dr. Sosa and myself and this note is written on her behalf ADDENDUM: Daughter returned call. D/W hospitalization, condition, labs. D/W further evaluation with egd- procedure risks benefits. Would like to proceed. States to do whatever we need to do to help her mother get better. (Fernanda Tucker) Physician Comments seen, examined agree with above (Martha Sosa MD) Fernanda Tucker Jul 15, 2016 12:19 Martha Sosa MD Jul 15, 2016 20:54
--- NOTE | 2016-07-15 12:28 | HHI.IDPN ---
Note Infectious Disease Note Notes reviewed. Patient is awake and appears awake. Little verbal response but she says she feels okay. Afebrile. PAST MEDICAL HISTORY: 1. Hypertension. 2. Gastroesophageal reflux disease (GERD). 3. Sleep apnea. 4. Depression. 5. History of breast cancer. 6. History of intracerebral bleed. 7. History of pancreatic pseudocyst. 8. Mastectomy. 9. Fulguration of Lorraine-Jaimes tear. 10. PEG-tube placement. 11. CVA. ALLERGIES: Aspirin. MEDICATIONS: Current Medications Medications (Trade) Dose Ordered Sig/Sharmila Route PRN Reason Start Time Stop Time Status Last Admin Dose Admin Diltiazem HCl/ Sodium Chloride (Cardizem Inj/NS Inj) 125 ml @ 0 mls/hr TITRATE IV 07/08/16 16:15 07/09/16 17:17 Clonidine (Catapres) 0.1 mg BID PO 07/08/16 21:00 07/15/16 09:54 Lisinopril (Prinivil) 20 mg DAILY PO 07/09/16 09:00 07/15/16 09:55 IV Flush (NS Flush) 2 ml UNSCH PRN FLUSH FLUSH AFTER USING IV ACCESS 07/08/16 20:15 07/12/16 05:24 IV Flush (NS Flush) 2 ml BID FLUSH 07/08/16 21:00 07/15/16 09:52 Acetaminophen (Tylenol) 650 mg Q4H PRN PO TEMP > 100.4 07/08/16 20:15 07/13/16 17:35 Ondansetron HCl (Zofran Inj) 4 mg Q6H PRN IVP NAUSEA OR VOMITING 07/08/16 20:15 07/14/16 17:31 Heparin Sodium (Porcine) (Heparin Inj) 5,000 units Q12H SQ 07/08/16 21:00 07/14/16 22:46 Naloxone HCl (Narcan Inj) 0.4 mg UNSCH PRN IV SEE LABEL COMMENTS 07/08/16 20:15 Metoprolol Tartrate (Lopressor) 25 mg Q12HR G-TUBE 07/09/16 12:30 07/15/16 09:54 Morphine Sulfate (Morphine Inj) 2 mg Q6HR PRN IV PUSH PAIN SCALE 4 TO 10 07/09/16 17:15 07/09/16 17:38 Protein (Beneprotein Powder) 1 pack TID G-TUBE 07/11/16 09:00 07/13/16 09:00 Phenytoin Sodium 100 mg 100 mg Q8H IV 07/11/16 22:00 07/15/16 05:27 Fluconazole/ Sodium Chloride (Diflucan 400 Mg Premix Bag) 200 ml @ 100 mls/hr Q24H IV 07/11/16 22:00 07/14/16 22:46 Levetriacetam (Keppra Liq) 750 mg Q12HR PO/TUBE 07/12/16 21:00 07/15/16 09:55 Diltiazem HCl (Cardizem) 30 mg QID PO 07/13/16 18:00 07/15/16 09:54 Pantoprazole Sodium (Protonix Inj) 40 mg BID IV 07/14/16 04:59 07/15/16 09:54 Metoclopramide HCl 10 mg 10 mg Q8HR IV PUSH 07/14/16 16:00 07/15/16 05:27 Dextrose (D5W 1000 ml Inj) 1,000 ml @ 100 mls/hr Q10H IV 07/15/16 07:45 SOCIAL HISTORY: No tobacco, no alcohol. No illicit drugs. The patient is a jail resident. OBJECTIVE: Vital Signs Date Time Temp Pulse Resp B/P Pulse Ox O2 Delivery O2 Flow Rate FiO2 07/15/16 08:00 97.6 109 24 164/79 93 07/15/16 04:00 97.7 103 20 157/67 93 07/15/16 00:00 97.7 97 20 151/67 97 07/14/16 20:00 98.2 101 16 130/77 95 07/14/16 16:00 98.6 96 28 152/78 94 07/14/16 07/14/16 07/15/16 15:00 23:00 07:00 Intake Total 0 ml 0 ml 0 ml Output Total 700 ml 350 ml 500 ml Balance -700 ml -350 ml -500 ml Intake Oral 0 ml 0 ml 0 ml Output Urine Total 700 ml 350 ml 500 ml # Bowel Movements 4 0 1 Laboratory Tests Test 07/14/16 07/15/16 06:31 05:22 Reticulocyte Count 1.8 % Absolute Reticulocyte Count 56.1 MIL/L White Blood Count 8.9 TH/MM3 Red Blood Count 3.16 MIL/MM3 Hemoglobin 8.8 GM/DL Hematocrit 26.8 % Mean Corpuscular Volume 84.9 FL Mean Corpuscular Hemoglobin 27.8 PG Mean Corpuscular Hemoglobin 32.8 % Concent Red Cell Distribution Width 19.1 % Platelet Count 114 TH/MM3 Mean Platelet Volume 10.3 FL Laboratory Tests Test 07/14/16 07/15/16 06:31 05:22 Iron Level 41 MCG/DL Total Iron Binding Capacity 189 MCG/DL Percent Iron Saturation 21.7 % Ferritin 86 NG/ML Vitamin B12 Level 1042 PG/ML Sodium Level 150 MEQ/L Potassium Level 3.4 MEQ/L Chloride Level 117 MEQ/L Carbon Dioxide Level 23.4 MEQ/L Anion Gap 10 MEQ/L Blood Urea Nitrogen 5 MG/DL Creatinine 0.88 MG/DL Estimat Glomerular Filtration 77 ML/MIN Rate Random Glucose 72 MG/DL Calcium Level 8.0 MG/DL Microbiology Date/Time Procedure Status Source Growth 07/13/16 11:22 Aerobic Blood Culture - Preliminary Resulted Blood Peripheral NO GROWTH IN 2 DAYS 07/13/16 11:22 Anaerobic Blood Culture - Preliminary Resulted Blood Peripheral NO GROWTH IN 2 DAYS 07/13/16 11:30 Aerobic Blood Culture - Preliminary Resulted Blood Peripheral NO GROWTH IN 2 DAYS 07/13/16 11:30 Anaerobic Blood Culture - Preliminary Resulted Blood Peripheral NO GROWTH IN 2 DAYS 07/14/16 04:48 Gastric Occult Blood - Final Complete Gastric GASTROCCULT POSITIVE IMAGING: Abdomen X-Ray 07/14/16 0000 Signed Impressions: Service Date/Time: Thursday, July 14, 2016 10:23 - CONCLUSION: Mild gaseous distention of multiple bowel loops without definite obstruction. Gideon De La Fuente MD Chest X-Ray 07/08/16 1554 Signed Impressions: Service Date/Time: Friday, July 08, 2016 16:33 - CONCLUSION: Mild suspected atelectasis or consolidation at the left base. Kye Montiel MD CT Angiography 07/08/16 0000 Signed Impressions: Service Date/Time: Friday, July 08, 2016 18:29 - CONCLUSION: 1. Limited study from motion artifact. No definite PE in the main pulmonary arteries. 2. Mild bibasilar infiltrates. Edilson Solis MD Abdomen/Pelvis CT 07/08/16 0000 Signed Impressions: Service Date/Time: Friday, July 08, 2016 18:29 - CONCLUSION: 1. Bibasilar atelectasis. 2. Stable cystic mass involving the proximal body of the pancreas. No significant change compared to 2012. 3. Small amount of free fluid in the pelvis. 4. Hepatocellular disease of the liver which appears to be stable. 5. No new or significant changes. Edilson Solis MD PHYSICAL EXAMINATION: GENERAL: Patient is alert. HEENT: No icterus. Oropharynx has dry mucosa. NECK: The neck is supple without adenopathy or masses. HEART: Regular S1 and S2. LUNGS: Decreased breath sounds. ABDOMEN: Bowel sounds present, soft, nontender. EXTREMITIES: No clubbing or cyanosis. No edema. SKIN: Warm and dry. NEUROLOGIC: Unable to assess. PSYCHIATRIC: Unable to assess. IMPRESSION: 1. Candidemia. 2. Lakshmi albicans urinary tract infection. 3. Sepsis on admission indicated by tachycardia, leukocytosis and abnormal urinalysis being the foci of sepsis. RECOMMENDATIONS: Continue Diflucan until 07/18. Follow blood culture until final. Repeat urine culture to check for clearance of lakshmi from the urine. Consider changing or removing the kitchen if UTI persist. César Smith MD Jul 15, 2016 12:27
--- NOTE | 2016-07-15 12:38 | HHI.HCPN ---
Reason for visit a. To assist with evaluation and management of symptoms including: debility and shortness of breath. b. To assist medical decision maker(s) with: better understanding of current medical conditions; weighing benefits/burdens of medical treatment options; making medical treatment decisions. . (Cat Strong) Subjective/Interval History Patient seen in her room, she was laying in bed in no acute distress. Patient arouses easily to verbals stimuli. Able to tell me her name, shrugged her shoulders when asked how old she was. She does not follow commands. Patient pushed my hands away during abdominal assessment. Patient shook her head "no" when asked if I could look at her feet. Febrile. Tachycardic with rate range 90-109. Intermittently tachypneic. Oxygen saturation in the low to mid 90s on room air. Leukocytosis has resolved. Urine culture positive for Tamy albicans, blood culture positive for fungi. Infectious disease ,Dr. Smith, following secondary to fungemia. Antibiotics were discontinued, patient will remain on Diflucan until 07/18/16. Following repeat cultures. Neurology following history of seizure disorder. On Keppra and Dilantin. EEG showing mild to moderate encephalopathy, no seizure activity. KUB on 07/14/16 showed mild gaseous distention of multiple bowel loops without definite obstruction. Tolerating artificial nutrition at 10ml/hr. . Family/friend interactions Attempted to contact patient's daughter, was left with Palliative Care contact information. Awaiting return phone call. . (Cat Strong) Advance Directives Living Will: Never completed Health Care Surrogate: Never completed Durable Power of Director Of Strategy & Mobile: Copy in medical record (Cat Strong) Advance Directive Specifics Date completed: General power of estate attorney completed on August 22, 2010. . Health Care Surrogate(s): As per daughter, no living will or healthcare surrogate designation has been completed. As per [place] statute, all 3 of patient's children would be healthcare decision-maker's. . Documented care wishes: No living will has been completed. . (Cat Strong) Objective Vital Signs Date Time Temp Pulse Resp B/P Pulse Ox O2 Delivery O2 Flow Rate FiO2 07/15/16 08:00 97.6 109 24 164/79 93 07/15/16 04:00 97.7 103 20 157/67 93 07/15/16 00:00 97.7 97 20 151/67 97 07/14/16 20:00 98.2 101 16 130/77 95 07/14/16 16:00 98.6 96 28 152/78 94 Intake & Output 07/15/16 07/15/16 07:00 19:00 Intake Total 0 ml Output Total 850 ml Balance -850 ml Intake Oral 0 ml Output Urine Total 850 ml # Bowel Movements 1 . Physical Exam CONSTITUTIONAL/GENERAL: This is an elderly female laying in bed in no acute distress, appears older than stated age. TUBES/LINES/DRAINS: PIV's, Rosales catheter SKIN: No jaundice, rashes, or lesions. No wounds seen anteriorly. Skin temperature appropriate. Not diaphoretic. HEAD: Atraumatic. Normocephalic. EYES: Pupils equal and round and reactive. No scleral icterus. No injection or drainage. ENT: Hearing appears grossly normal. Nose without bleeding or purulent drainage. NECK: Trachea midline. Supple. CARDIOVASCULAR: Irregular rate and rhythm without murmurs, gallops, or rubs. Peripheral pulses symmetric. RESPIRATORY/CHEST: Symmetric, unlabored respirations. Rhonchi left more than right. GASTROINTESTINAL: Abdomen soft, non-tender, nondistended. No guarding. Bowel sounds present. PEG tube in place, site clean. GENITOURINARY: Without palpable bladder distension. Rosales catheter in place. NEUROLOGICAL: Awake. Alert, opening eyes to verbal stimuli. Responds to some simple questions with 1-2 word answers. Does not follow commands PSYCHIATRIC: Unable to assess secondary to clinical condition. Appears calm. . (Cat Strong) Diagnostic Tests Laboratory Laboratory Tests Test 07/13/16 07/13/16 07/14/16 07/15/16 11:30 14:15 06:31 05:22 White Blood Count 9.2 TH/MM3 8.9 TH/MM3 (4.0-11.0) (4.0-11.0) Red Blood Count 2.57 MIL/MM3 3.16 MIL/MM3 (4.00-5.30) (4.00-5.30) Hemoglobin 7.2 GM/DL 8.8 GM/DL (11.6-15.3) (11.6-15.3) Hematocrit 22.2 % 26.8 % (35.0-46.0) (35.0-46.0) Mean Corpuscular Volume 86.1 FL 84.9 FL (80.0-100.0) (80.0-100.0) Mean Corpuscular Hemoglobin 27.8 PG 27.8 PG (27.0-34.0) (27.0-34.0) Mean Corpuscular Hemoglobin 32.3 % 32.8 % Concent (32.0-36.0) (32.0-36.0) Red Cell Distribution Width 19.6 % 19.1 % (11.6-17.2) (11.6-17.2) Platelet Count 103 TH/MM3 114 TH/MM3 (150-450) (150-450) Mean Platelet Volume 10.6 FL 10.3 FL (7.0-11.0) (7.0-11.0) Sodium Level 148 MEQ/L 150 MEQ/L (136-145) (136-145) Potassium Level 3.9 MEQ/L 3.4 MEQ/L (3.5-5.1) (3.5-5.1) Chloride Level 120 MEQ/L 117 MEQ/L (98-107) (98-107) Carbon Dioxide Level 20.0 MEQ/L 23.4 MEQ/L (21.0-32.0) (21.0-32.0) Anion Gap 8 MEQ/L (5-15) 10 MEQ/L (5-15) Blood Urea Nitrogen 6 MG/DL (7-18) 5 MG/DL (7-18) Creatinine 0.96 MG/DL 0.88 MG/DL (0.50-1.00) (0.50-1.00) Estimat Glomerular Filtration 70 ML/MIN (>89) 77 ML/MIN (>89) Rate Random Glucose 110 MG/DL 72 MG/DL (74-106) (74-106) Calcium Level 7.4 MG/DL 8.0 MG/DL (8.5-10.1) (8.5-10.1) Protein Corrected Calcium 8.0 MG/DL (8.5-10.1) Total Protein 6.0 GM/DL (6.4-8.2) Phenytoin (Dilantin) Level 10.3 MCG/ML 11.3 MCG/ML (10.0-20.0) (10.0-20.0) Blood Type O POSITIVE Antibody Screen NEGATIVE Crossmatch Leukocyte-Reduced Red Blood Cells Blood Bank Comment Reticulocyte Count 1.8 % (0.4-3.0) Absolute Reticulocyte Count 56.1 MIL/L (20.0-150.0) Iron Level 41 MCG/DL (50-170) Total Iron Binding Capacity 189 MCG/DL (250-450) Percent Iron Saturation 21.7 % (20-50) Ferritin 86 NG/ML (8-252) Vitamin B12 Level 1042 PG/ML (193-986) . (Cat Strong) Result Diagram: 07/15/1652107/15/16521 Microbiology Microbiology Date/Time Procedure Status Source Growth 07/13/16 11:22 Aerobic Blood Culture - Preliminary Resulted Blood Peripheral NO GROWTH IN 2 DAYS 07/13/16 11:22 Anaerobic Blood Culture - Preliminary Resulted Blood Peripheral NO GROWTH IN 2 DAYS 07/13/16 11:30 Aerobic Blood Culture - Preliminary Resulted Blood Peripheral NO GROWTH IN 2 DAYS 07/13/16 11:30 Anaerobic Blood Culture - Preliminary Resulted Blood Peripheral NO GROWTH IN 2 DAYS 07/14/16 04:48 Gastric Occult Blood - Final Complete Gastric GASTROCCULT POSITIVE . Imaging Last 72 hours Impressions Abdomen X-Ray 07/14/16 0000 Signed Impressions: Service Date/Time: Thursday, July 14, 2016 10:23 - CONCLUSION: Mild gaseous distention of multiple bowel loops without definite obstruction. Gideon De La Fuente MD . (Cat Strong) Assessment and Plan Disease Oriented Problem List: (1) CVA (cerebral vascular accident) (2) Respiratory distress (3) Tachycardia with heart rate 121-140 beats per minute Symptom Scale: (1) Shortness of breath 0-10 Scale: Unable to quantify Comment: Currently tolerating O2 via nasal cannula PRN (2) Debility 0-10 Scale: Unable to quantify Comment: Progressive secondary to CVA, bedbound state. Pertinent Non-Medical Issues Psychosocial: . Resident of long-term facility. Has 3 children. Spiritual: Congregational. Legal: No living will completed. Ethical issues impacting care: No living will completed. . Important Contacts Daughter Cat Childress [phone]. . Prognosis Mrs. Childress is a 70-year-old female with a medical history significant of left MCA stroke with right-sided hemiparesis, COPD, schizoaffective disorder, dementia, history of of intracranial aneurysm bleed, hypertension, seizure disorder, liver cirrhosis who is a long-term resident at [facility] for the past 5 years. Patient presented to the ED on 07/09/16 with complaints of shortness of breath and was admitted for further management. Recent prolonged hospitalization from 06/17/16 to 07/06/16 secondary to acute respiratory distress and urosepsis. At that time patient required intubation and mechanical ventilation. Patient is full care, bedbound with a PPS of 30%. Overall prognosis is poor for an improved quality of life given patient's age, bedbound state, neurological deficits, multiple comorbidities and acute events. Patient is a very high risk for further decline, complications and . . Code Status: Full Code Plan * CODE STATUS: Full code. Risks, benefits and limitations of CPR, intubation and mechanical ventilation discussed with emy Shelton on 07/10/16 given patient's bedbound state and neurological deficit secondary to CVA. Family electing for continuation of full code at this time. * HEALTHCARE DECISION-MAKING: Patient incapacitated secondary to clinical condition. As per daughter, no living will or healthcare surrogate designation has been completed. Per [place] statute, in the absence of written advanced directives healthcare proxy decision-making falls to the patient's history adult children. Power of estate attorney in chart, which does not include medical decision maker. * GOALS OF CARE: As per family, goals of treatment remain unchanged. Continue of aggressive care to include CPR, intubation and mechanical ventilation if medically indicated. Family hoping for clinical improvement with the goal of returning patient to long-term facility. Family electing to continue full aggressive care to include full code -intubation, mechanical ventilation and CPR - with hopes of returning patient to long-term facility. * SYMPTOMS: == Debility, secondary to CVA in 2011 with right-sided hemiparesis, bedbound state, recent prolonged hospitalization. Likely to continue worsening. == Shortness of breath, history of COPD, recent hospitalization complicated by acute respiratory failure requiring intubation and mechanical ventilation. Currently tolerating O2 via nasal cannula. * Palliative care contact information has been provided to patient's daughter. * Attempt to contact patient's daughter. Message left on voicemail. Awaiting return phone call. * Palliative care will continue to follow-up as needed for further clarifications of goals of care as the clinical course evolves. . (Cat Strong) Attestation To help prompt me to consider important information that might be impacting today's encounter and assessment, information from prior notes written by myself or my colleagues may have been "brought forward" into today's note. My signature on this note, however, is an attestation that I personally performed the exam, history, and/or decision-making noted today, and, unless otherwise indicated, the interactions with patient, family, and staff as well as the review of records all occurred today. I also attest that the listed assessment and stated plan reflect my best clinical judgment today based on the combination of historical information, prior notes, and today's exam/ interactions. When time spent is documented, it refers only to time spent today by the signer, or if indicated, combined time spent today by collaborating physician/nurse practitioner. . (Cat Strong) Collaborating MD Comments Chart reviewed. Cased discussed with palliative care ACQUISITION MANAGER. Above ACQUISITION MANAGER note reviewed and I concur. . (Julian Joe MD) Cat Strong Jul 15, 2016 12:38 Julian Joe MD September 23, 2016 14:20
[2016-07-15] MEDS: BENEPROTEIN POWDER 1 PACK G-TUBE SCH ×3 (12:45→17:04)
[2016-07-15] MEDS: RESP: ALBUTEROL 2.5 MG/IPRATROPIUM 0.5 MG NEB (PRN) NEB (17:49)
[2016-07-15] MEDS: FLUCONAZOLE 400 MG PREMIX BAG 200 ML IV SCH (20:42)
[2016-07-16] VITALS (9 sets, daily range): BP systolic 128–151; BP diastolic 60–86; PULSE 75–105; RESP 16–20; TEMP 97.8–98.6; O2SAT 91–97
[2016-07-16] MEDS: DEXTROSE 5% IN WATE 1000ML INJ 1,000 ML IV SCH ×3 (01:01→17:13)
[2016-07-16] MEDS: METOCLOPRAMIDE HCL 10 MG/2 ML VIAL IV PUSH SCH ×3 (05:44→21:28)
[2016-07-16] MEDS: PHENYTOIN INJ 100 MG/2 ML VIAL IV SCH ×3 (05:45→21:27)
[2016-07-16] MEDS: DILTIAZEM HCL 30 MG TAB PO SCH ×5 (09:42→21:28)
[2016-07-16] MEDS: cloNIDine HCL 0.1 MG TAB PO SCH ×2 (09:42→21:28)
[2016-07-16] MEDS: levETIRAcetam 500 MG/5 ML UDC PO/TUBE SCH ×2 (09:42→21:28)
[2016-07-16] MEDS: LISINOPRIL 20 MG TAB PO SCH (09:42)
[2016-07-16] MEDS: PANTOPRAZOLE SODIUM 40 MG VIAL IV SCH ×2 (09:42→21:27)
[2016-07-16] MEDS: METOPROLOL TARTRATE 25 MG TAB G-TUBE SCH ×2 (09:42→21:28)
[2016-07-16] MEDS: BENEPROTEIN POWDER 1 PACK G-TUBE SCH ×3 (09:43→18:30)
[2016-07-16] MEDS: SODIUM CHLORIDE 0.9% FLUSH 5 ML FLUSH FLUSH SCH ×2 (09:46→21:28)
--- NOTE | 2016-07-16 15:05 | HHI.PR ---
Subjective Subjective Remarks non verbal abd. less distended no vomiting reported having loose bms no fever NPO for EGD today unable to obtain ROS Review of Systems Constitutional Constitutional Remarks unable to obtain ROS Vitals/Results Intake & Output 07/15/16 07/15/16 07/16/16 15:00 23:00 07:00 Intake Total 0 ml 1225 ml 759 ml Output Total 1000 ml Balance -1000 ml 1225 ml 759 ml Intake Oral 0 ml IV Total 1157 ml 759 ml Tube Feeding 68 ml Output Urine Total 1000 ml # Bowel Movements 2 Vital Signs Vital Signs Date Time Temp Pulse Resp B/P Pulse Ox O2 Delivery O2 Flow Rate FiO2 07/16/16 12:30 98.6 75 18 128/60 95 07/16/16 10:04 103 07/16/16 09:16 98.5 105 18 149/72 95 07/16/16 08:54 97 21 07/16/16 05:31 97.8 98 16 151/73 95 07/16/16 01:20 98.2 91 16 143/83 91 07/15/16 20:06 98.3 99 22 161/76 93 07/15/16 20:04 97 07/15/16 16:00 98.1 94 20 145/76 95 CBC/BMP: 07/15/16 0522 07/15/16 0522 Microbiology Microbiology 07/15/16 Urine Culture - Preliminary, Resulted Yeast Species Physical Exam General General Appearance: No Acute Distress Eyes Eye Exam: Pupils Equal, Pupils Reactive Ears & Nose Ears & Nose Exam: Nasal Mucosa [place] Throat Throat Exam: Oral Mucosa [place] & Moist Neck Neck Exam: Neck Supple, Trachea Midline Pulmonary Resp Exam: Decreased Bases, Poor Inspiratory Effort Resp Remarks coarse upper lobes bilat Cardiology CV Exam: Regular Gastrointestinal/Abdomen GI Exam: Bowel Sounds Present, Positive Bowel Movement, Distended, Bowel Sounds Hyperactive GI Remarks Peg tube Musculoskeletal MS Exam: Joints Intact, Atrophy Integumentary Skin Exam: Warm, Dry Extremeties Extremities Exam: Pedal Pulses Palpable, Trace Edema Neurologic Neuro Exam: Awake Neuro Remarks right hemiplegia VTE Prophylaxis VTE Prophylaxis Device: SCDs VTE Prophylaxis Meds: Heparin Assessment/Plan Assessment/Plan 1. Shortness of breath,low air volumes, tachypnea and tachycardia, etiology unclear, recurrent infection, possible early pneumonia, probable aspiration. 2. elevated lipase, possible pancreatitis. This could be causing pain resulting in tachycardia and tachypnea. 3. Respiratory alkalosis. 4. Hypertension., 5. History of dense CVA with right hemiplegia. 6. History of liver disease. 7. History of depression. 8. History of seizure disorder, recurrent seizures 9. Recent respiratory failure and pneumonia. 10.Poor performance status. 11.Severe protein calorie malnutrition. 12.Chronic kidney disease, stage II. 13.History of breast cancer. 14. Encephalopathy 15. Hypernatremia 16. Thrombocytopenia 17. Abd distension, ? ileus 18. Anemia, gastroccult + PLAN Na 150 continue D5W at 42/hr abd. distended, had vomiting-better today abd. xray ? ileus NPO for now continue Reglan blood c/s +ve C albican urine c/s +ve C albicans ID input appreciated cont IV diflucan cdiff negative repeat uc + yeast 07/15 oxygen PRN Duonebs PRN Appreciate GI input Not a candidate for endoscopic ultrasound Recommend conservative treatment reconsulted for anemia, EGD recommended, schedule for today. Noted anemic, hemoccult 07/05 negative gastroccult + low iron stores HH 7.2/22.2--S/P 1 unit PRBC 07/13 HH stable, 8.8/26.8 continue Keppra, Dilantin Appreciate neuro input seizure precautions EEG shows mild to moderate encephalopathy. no active seizures. PPI for GI prophylaxis Heparin for DVT prophylaxis Appreciate palliative care input family request full aggressive care for now Poor prognosis labs in am D/W RN D/W Dr. Posey This patient was seen by myself and Dr. Posey, this note is written on his behalf Yessy Nicole Jul 16, 2016 15:05
[2016-07-16] MEDS: FLUCONAZOLE 400 MG PREMIX BAG 200 ML IV SCH (21:27)
[2016-07-17] VITALS: BP 165/78; PULSE 104; RESP 20; TEMP 98; O2SAT 96
[2016-07-17] MEDS: DEXTROSE 5% IN WATE 1000ML INJ 1,000 ML IV SCH ×3 (02:18→21:38)
[2016-07-17 04:00] VITALS: BP 169/82; PULSE 109; RESP 20; TEMP 98.9; O2SAT 94
[2016-07-17] MEDS: PHENYTOIN INJ 100 MG/2 ML VIAL IV SCH ×3 (06:00→21:36)
[2016-07-17] MEDS: METOCLOPRAMIDE HCL 10 MG/2 ML VIAL IV PUSH SCH ×3 (06:00→21:36)
[2016-07-17 08:00] VITALS: BP 157/75; PULSE 110; RESP 18; TEMP 99.4; O2SAT 96
[2016-07-17 08:14] LABS: HEMATOCRIT 27.8 % (35.0-46.0); MEAN CELL VOLUME 84.6 FL (80.0-100.0); MEAN CORPUSCULAR HGB CONC 31.9 % (32.0-36.0); PLATELET COUNT 129 TH/MM3 (150-450); RED BLOOD COUNT 3.29 MIL/MM3 (4.00-5.30); RED CELL DISTRIBUTION WIDTH 18.5 % (11.6-17.2); REVIEW FLAG FINAL; WHITE BLOOD COUNT 5.4 TH/MM3 (4.0-11.0)
[2016-07-17] MEDS: BENEPROTEIN POWDER 1 PACK G-TUBE SCH ×3 (08:21→18:00)
[2016-07-17] MEDS: METOPROLOL TARTRATE 25 MG TAB G-TUBE SCH ×2 (09:00→21:35)
[2016-07-17] MEDS: DILTIAZEM HCL 30 MG TAB PO SCH ×4 (09:00→21:35)
[2016-07-17] MEDS: PANTOPRAZOLE SODIUM 40 MG VIAL IV SCH ×2 (09:00→21:37)
[2016-07-17] MEDS: SODIUM CHLORIDE 0.9% FLUSH 5 ML FLUSH FLUSH SCH ×2 (09:00→21:37)
[2016-07-17] MEDS: levETIRAcetam 500 MG/5 ML UDC PO/TUBE SCH ×2 (09:00→21:36)
[2016-07-17] MEDS: LISINOPRIL 20 MG TAB PO SCH (09:00)
[2016-07-17] MEDS: cloNIDine HCL 0.1 MG TAB PO SCH ×2 (09:00→21:35)
[2016-07-17 09:08] LABS: BICARBONATE 24.1 MEQ/L (21.0-32.0)
[2016-07-17 09:57] VITALS: O2SAT 93
--- NOTE | 2016-07-17 11:41 | HHI.PR ---
Subjective Subjective Remarks non verbal abd. less distended no vomiting reported having loose bms no fever NPO for EGD today unable to obtain ROS (Yessy Nicole) Review of Systems Constitutional Constitutional Remarks unable to obtain ROS (Yessy Nicole) Vitals/Results Intake & Output 07/16/16 07/16/16 07/17/16 15:00 23:00 07:00 Intake Total 4 ml Balance 4 ml Intake Oral 4 ml IV Total 0 ml # Voids 3 2 5 # Bowel Movements 3 1 Vital Signs Vital Signs Date Time Temp Pulse Resp B/P Pulse Ox O2 Delivery O2 Flow Rate FiO2 07/17/16 04:00 98.9 109 20 169/82 94 07/17/16 00:00 98.0 104 20 165/78 96 07/16/16 23:00 97 07/16/16 20:00 101 07/16/16 20:00 98.0 101 20 151/86 95 07/16/16 16:30 98.4 95 18 135/70 96 07/16/16 12:30 98.6 75 18 128/60 95 (Yessy Nicole) CBC/BMP: 07/17/16 0707 07/17/16 0707 Lab Results Laboratory Tests Test 07/17/16 07:07 White Blood Count 5.4 TH/MM3 Red Blood Count 3.29 MIL/MM3 Hemoglobin 8.9 GM/DL Hematocrit 27.8 % Mean Corpuscular Volume 84.6 FL Mean Corpuscular Hemoglobin 27.0 PG Mean Corpuscular Hemoglobin 31.9 % Concent Red Cell Distribution Width 18.5 % Platelet Count 129 TH/MM3 Mean Platelet Volume 10.2 FL Sodium Level 141 MEQ/L Potassium Level 3.0 MEQ/L Chloride Level 107 MEQ/L Carbon Dioxide Level 24.1 MEQ/L Anion Gap 10 MEQ/L Blood Urea Nitrogen 3 MG/DL Creatinine 0.94 MG/DL Estimat Glomerular Filtration 72 ML/MIN Rate Random Glucose 77 MG/DL Calcium Level 8.0 MG/DL (Yessy Nicole) Physical Exam General General Appearance: No Acute Distress (Yessy Nicole) Eyes Eye Exam: Pupils Equal, Pupils Reactive (Yessy Nicole) Ears & Nose Ears & Nose Exam: Nasal Mucosa [place] (Gross,Yessy G. [employer] SURVEYING) Throat Throat Exam: Oral Mucosa [place] & Moist (BonnieYessy G. [employer] SURVEYING) Neck Neck Exam: Neck Supple, Trachea Midline (BonnieYessy G. [employer] SURVEYING) Pulmonary Resp Exam: Decreased Bases, Poor Inspiratory Effort Resp Remarks coarse upper lobes bilat (BonnieYessy G. [employer] SURVEYING) Cardiology CV Exam: Regular (GrossYessy G. [employer] SURVEYING) Gastrointestinal/Abdomen GI Exam: Bowel Sounds Present, Positive Bowel Movement, Distended, Bowel Sounds Hyperactive GI Remarks Peg tube (BonnieYessy G. [employer] SURVEYING) Musculoskeletal MS Exam: Joints Intact, Atrophy (GrossYessy G. [employer] SURVEYING) Integumentary Skin Exam: Warm, Dry (GrossYessy G. [employer] SURVEYING) Extremeties Extremities Exam: Pedal Pulses Palpable, Trace Edema (BonnieYessy G. [employer] SURVEYING) Neurologic Neuro Exam: Awake Neuro Remarks right hemiplegia (BonnieYessy G. [employer] SURVEYING) VTE Prophylaxis VTE Prophylaxis Device: SCDs VTE Prophylaxis Meds: Heparin (BonnieYessy Rama. [employer] SURVEYING) Assessment/Plan Assessment/Plan 1. Shortness of breath,low air volumes, tachypnea and tachycardia, etiology unclear, recurrent infection, possible early pneumonia, probable aspiration. 2. elevated lipase, possible pancreatitis. This could be causing pain resulting in tachycardia and tachypnea. 3. Respiratory alkalosis. 4. Hypertension., 5. History of dense CVA with right hemiplegia. 6. History of liver disease. 7. History of depression. 8. History of seizure disorder, recurrent seizures 9. Recent respiratory failure and pneumonia. 10.Poor performance status. 11.Severe protein calorie malnutrition. 12.Chronic kidney disease, stage II. 13.History of breast cancer. 14. Encephalopathy 15. Hypernatremia 16. Thrombocytopenia 17. Abd distension, ? ileus 18. Anemia, gastroccult + PLAN Na 141 continue D5W at 42/hr abd. distended, had vomiting-better today abd. xray ? ileus NPO for now continue Reglan blood c/s +ve C albican urine c/s +ve C albicans ID input appreciated cont IV diflucan cdiff negative repeat uc 07/15, c. albicans oxygen PRN Duonebs PRN Appreciate GI input Not a candidate for endoscopic ultrasound Recommend conservative treatment reconsulted for anemia, EGD recommended, going today Noted anemic, hemoccult 07/05 negative gastroccult + low iron stores HH 7.2/22.2--S/P 1 unit PRBC 07/13 HH stable, 8.8/26.8 continue Pham Jackson Appreciate neuro input seizure precautions EEG shows mild to moderate encephalopathy. no active seizures. vascular team noted poss. thrombus right arm US right arm r/o dvt PPI for GI prophylaxis Heparin for DVT prophylaxis Replace K Appreciate palliative care input family request full aggressive care for now Poor prognosis D/W RN D/W Dr. Posey This patient was seen by myself and Dr. Posey, this note is written on his behalf (Yessy Nicole) Assessment/Plan pt is seen & examined d/w yessy d/w RN agree w above US R UExt to r/o DVT cont supportive care am labs Dr crespo will f/u in am (Geri Posey MD) Yessy Nicole Jul 17, 2016 11:40 Geri Posey MD Jul 17, 2016 13:51
[2016-07-17] MEDS ORDERED: POTASSIUM CHLORIDE 25 MEQ EFFERVESCENT TAB PO ONE (11:45)
[2016-07-17 11:48] VITALS: BP 162/82; PULSE 109; RESP 20; TEMP 98.9; O2SAT 94
[2016-07-17] MEDS ORDERED: PROPOFOL 200 MG/20 ML AMP IV ONE (13:03)
--- NOTE | 2016-07-17 13:13 | GIPROC ---
[facility] [address] [facility]. [facility], [address] EGD PROCEDURE REPORT EXAM DATE: 07/17/2016 PATIENT NAME: Florence Childress MR #: [id number] BIRTHDATE: 1945 ATTENDING: Martha Sosa MD ORDER #: [id number] DISABILITY INSURANCE HEARING OFFICER: Ashok Collins and Angelo Lozoya STATUS: inpatient INDICATIONS: The patient is a 70 yr old female here for an EGD due to anemia PROCEDURE PERFORMED: EGD w/ biopsy MEDICATIONS: None and Per Anesthesia. TOPICAL ANESTHETIC: none CONSENT: The patient understands the risks and benefits of the procedure and understands that these risks include, but are not limited to: sedation, allergic reaction, infection, perforation and/or bleeding. Alternative means of evaluation and treatment include, among others: physical exam, x-rays, and/or surgical intervention. The patient elects to proceed with this endoscopic procedure. medical equipment was checked for proper function. Hand hygiene and appropriate measures for infection prevention was taken. After the risks, benefits and alternatives of the procedure were thoroughly explained, Informed consent was verified, confirmed and timeout was successfully executed by the treatment team. The patient was anesthetized with topical anesthesia and the Pentax EG-[id number] endoscope was introduced through the mouth and advanced to the second portion of the duodenum. Retroflexed views revealed a hiatal hernia The gastroscope was then slowly withdrawn and removed. Duodenitis second portion-biopsy nodular mucosa duodenal bulb gastritis antrum-biopsy peg in body esophagitis distal esophagus. ADVERSE EVENTS: There were no complications. IMPRESSIONS: 1. Duodenitis second portion-biopsy nodular mucosa duodenal bulb gastritis antrum-biopsy peg in body esophagitis distal esophagus 2. Retroflexed views revealed a hiatal hernia RECOMMENDATIONS: 1. Await biopsy results. Biopsy results will not be ready for 7-10 days. If you don't hear from us in two weeks, call our office for biopsy results. 2. Anti-reflux regimen 3. Continue PPI 4. Avoid NSAIDS 5. Resume diet PATIENT CONDITION: stable DISPOSITION: Inpatient REPEAT EXAM: EGD pending biopsy results Martha Sosa MD eSigned: Martha Sosa MD 07/17/2016 1:13 PM cc: PATIENT NAME: Florence Childress MR#: [id number]
[2016-07-17] MEDS ORDERED: POTASSIUM CHLOR 20 MEQ PREMIX 100 ML IV ONE (14:00)
[2016-07-17] MEDS ORDERED: POTASSIUM CHLORIDE 10 MEQ CONTROLLED RELEASE TAB PO ONE (14:15)
[2016-07-17] MEDS: MORPHINE SULFATE 4 MG/ML INJ IV PUSH PRN (15:48)
--- NOTE | 2016-07-17 16:28 | RADRPT ---
EXAM DATE/TIME: 07/17/2016 15:21 [facility] COMPARISON: No previous studies available for comparison. INDICATIONS : Right arm swelling. MEDICAL HISTORY : Hypertension. Inflammatory bowel disease. Congestive heart failure. Left breast cancer. Intracerebral bleed. Dysphagia. Seizures. Hyperlipidemia. Asthma. Pleural effusion. Sleep apnea. Insomnia. Dyspena . GI Bleed. GERD. Cirrhosis. Schizoaffective disorder. Depression. Anxiety. MRSA. SURGICAL HISTORY : PEG tube placement. ENCOUNTER: Initial ACUITY: 1 day PAIN SCORE: 4/10 LOCATION: Right arm. FINDINGS: Occlusive thrombus is noted throughout the right basilic vein. There is normal color flow within the right internal jugular, subclavian, axillary, brachial, radial and ulnar veins. CONCLUSION: Occlusive thrombus within the right basilic vein. Antoni Frias MD on July 17, 2016 at 16:25 Board Certified Radiologist. This report was verified electronically.
[2016-07-17 20:00] VITALS: BP 138/70; PULSE 108; RESP 18; TEMP 96.2; O2SAT 98
[2016-07-17] MEDS: FLUCONAZOLE 400 MG PREMIX BAG 200 ML IV SCH (23:40)
[2016-07-18] VITALS (7 sets, daily range): BP systolic 110–150; BP diastolic 55–86; PULSE 80–110; RESP 16–20; TEMP 97.4–100.1; O2SAT 93–97
[2016-07-18] MEDS: MORPHINE SULFATE 4 MG/ML INJ IV PUSH PRN ×2 (01:56→08:45)
[2016-07-18] MEDS: METOCLOPRAMIDE HCL 10 MG/2 ML VIAL IV PUSH SCH ×3 (05:52→23:42)
[2016-07-18] MEDS: PHENYTOIN INJ 100 MG/2 ML VIAL IV SCH ×3 (05:53→23:41)
[2016-07-18] MEDS: DEXTROSE 5% IN WATE 1000ML INJ 1,000 ML IV SCH (08:18)
[2016-07-18] MEDS: levETIRAcetam 500 MG/5 ML UDC PO/TUBE SCH ×2 (08:25→20:10)
[2016-07-18] MEDS: LISINOPRIL 20 MG TAB PO SCH (08:26)
[2016-07-18] MEDS: PANTOPRAZOLE SODIUM 40 MG VIAL IV SCH ×2 (08:27→20:11)
[2016-07-18] MEDS: BENEPROTEIN POWDER 1 PACK G-TUBE SCH ×3 (08:27→16:52)
[2016-07-18] MEDS: METOPROLOL TARTRATE 25 MG TAB G-TUBE SCH ×2 (08:27→20:11)
[2016-07-18] MEDS: DILTIAZEM HCL 30 MG TAB PO SCH ×4 (08:27→20:11)
[2016-07-18] MEDS: cloNIDine HCL 0.1 MG TAB PO SCH ×2 (08:27→20:10)
[2016-07-18] MEDS: SODIUM CHLORIDE 0.9% FLUSH 5 ML FLUSH FLUSH SCH ×2 (08:27→20:11)
--- NOTE | 2016-07-18 11:46 | HHI.PR ---
Subjective Subjective Remarks non verbal abd. less distended no vomiting reported having loose bms no fever tolerating tube feeding well Review of Systems Constitutional Constitutional Remarks unable to obtain ROS Vitals/Results Intake & Output 07/17/16 07/17/16 07/18/16 15:00 23:00 07:00 Intake Total 100 ml 2036 ml Balance 100 ml 2036 ml Intake Oral 0 ml IV Total 979 ml Tube Feeding 907 ml Other 100 ml 150 ml # Voids 1 # Bowel Movements 1 Vital Signs Vital Signs Date Time Temp Pulse Resp B/P Pulse Ox O2 Delivery O2 Flow Rate FiO2 07/18/16 09:29 20 07/18/16 05:05 98.2 98 18 150/86 97 07/18/16 00:00 98.8 100 16 110/63 96 07/17/16 20:00 96.2 108 18 138/70 98 07/17/16 20:00 Room Air 07/17/16 13:30 113 16 137/73 98 07/17/16 13:21 114 16 145/79 97 07/17/16 13:13 99.1 109 16 148/83 95 07/17/16 11:48 98.9 109 20 162/82 94 CBC/BMP: 07/17/16 0707 07/17/16 0707 Physical Exam General General Appearance: No Acute Distress Eyes Eye Exam: Pupils Equal, Pupils Reactive Ears & Nose Ears & Nose Exam: Nasal Mucosa [place] Throat Throat Exam: Oral Mucosa [place] & Moist Neck Neck Exam: Neck Supple, Trachea Midline Pulmonary Resp Exam: Decreased Bases, Poor Inspiratory Effort Resp Remarks faint ronchi upper lobes Cardiology CV Exam: Regular Gastrointestinal/Abdomen GI Exam: Bowel Sounds Present, Positive Bowel Movement, Distended, Bowel Sounds Hyperactive GI Remarks Peg tube Musculoskeletal MS Exam: Joints Intact, Atrophy Integumentary Skin Exam: Warm, Dry Extremeties Extremities Exam: Pedal Pulses Palpable, Trace Edema Neurologic Neuro Exam: Awake Neuro Remarks right hemiplegia VTE Prophylaxis VTE Prophylaxis Device: SCDs VTE Prophylaxis Meds: Heparin Assessment/Plan Assessment/Plan 1. Shortness of breath,low air volumes, tachypnea and tachycardia, etiology unclear, recurrent infection, possible early pneumonia, probable aspiration. 2. elevated lipase, possible pancreatitis. This could be causing pain resulting in tachycardia and tachypnea. 3. Respiratory alkalosis. 4. Hypertension., 5. History of dense CVA with right hemiplegia. 6. History of liver disease. 7. History of depression. 8. History of seizure disorder, recurrent seizures 9. Recent respiratory failure and pneumonia. 10.Poor performance status. 11.Severe protein calorie malnutrition. 12.Chronic kidney disease, stage II. 13.History of breast cancer. 14. Encephalopathy 15. Hypernatremia 16. Thrombocytopenia 17. Abd distension, ? ileus 18. Anemia, gastroccult + 19. Right arm thrombus basilic vein PLAN Na 141 dc IVF abd. less distended tolerating tube feeding, continue continue Reglan blood c/s +ve C albican urine c/s +ve C albicans ID input appreciated cont IV diflucan cdiff negative repeat uc 07/15, c. albicans will ask ID how long to continue Diflucan kitchen has been dc oxygen PRN Duonebs PRN Appreciate GI input Not a candidate for endoscopic ultrasound Recommend conservative treatment S/P EGD 07/17-Duodenitis, gastritis,esophagitis distal esophagus/Retroflexed views revealed a hiatal hernia Noted anemic, hemoccult 07/05 negative gastroccult + low iron stores HH 7.2/.2--S/P 1 unit PRBC 07/13 hgb stable, 8.9 continue Keppra, Dilantin Appreciate neuro input seizure precautions EEG shows mild to moderate encephalopathy. no active seizures. vascular team noted poss. thrombus right arm US right arm-thrombus basilic vein start Coumadin at 3 mg po daily pharmacy to dose INR daily will consider bridging in am, concern with bleeding PPI for GI prophylaxis Heparin for DVT prophylaxis Appreciate palliative care input family request full aggressive care for now Poor prognosis Poss dc tomorrow to SNF D/W RN D/W Dr. Pittman This patient was seen by myself and Dr. Pittman, this note is written on his behalf Yessy Nicole Jul 18, 2016 11:46
--- NOTE | 2016-07-18 12:36 | HHI.GIFU ---
Subjective Remarks Resting in bed. Alert, not following commands. Tolerating tf so far. No distress. (Fernanda Tucker [place]) Objective Vitals I&O Vital Signs Date Time Temp Pulse Resp B/P Pulse Ox O2 Delivery O2 Flow Rate FiO2 07/18/16 09:29 20 07/18/16 05:05 98.2 98 18 150/86 97 07/18/16 00:00 98.8 100 16 110/63 96 07/17/16 20:00 96.2 108 18 138/70 98 07/17/16 20:00 Room Air 07/17/16 13:30 113 16 137/73 98 07/17/16 13:21 114 16 145/79 97 07/17/16 13:13 99.1 109 16 148/83 95 I/O 07/17/16 07/17/16 07/17/16 07/18/16 07/18/16 07/18/16 07:00 15:00 23:00 07:00 15:00 23:00 Intake Total 4 ml 100 ml 2036 ml Balance 4 ml 100 ml 2036 ml Intake Oral 4 ml 0 ml IV Total 0 ml 979 ml Tube Feeding 907 ml Other 100 ml 150 ml # Voids 5 1 # Bowel Movements 1 1 Laboratory Date/Time Procedure Status Source Growth 07/15/16 15:17 Urine Culture - Final Complete Urine Catheterized Urine Tamy Albicans 07/14/16 04:48 Gastric Occult Blood - Final Complete Gastric GASTROCCULT POSITIVE Imaging Last Impressions Upper Extremity Ultrasound 07/17/16 0000 Signed Impressions: Service Date/Time: Sunday, July 17, 2016 15:21 - CONCLUSION: Occlusive thrombus within the right basilic vein. Antoni Frisa MD Abdomen X-Ray 07/14/16 0000 Signed Impressions: Service Date/Time: Thursday, July 14, 2016 10:23 - CONCLUSION: Mild gaseous distention of multiple bowel loops without definite obstruction. Gideon De La Fuente MD Chest X-Ray 07/08/16 1554 Signed Impressions: Service Date/Time: Friday, July 08, 2016 16:33 - CONCLUSION: Mild suspected atelectasis or consolidation at the left base. Kye Montiel MD CT Angiography 07/08/16 0000 Signed Impressions: Service Date/Time: Jc, July 08, 2016 18:29 - CONCLUSION: 1. Limited study from motion artifact. No definite PE in the main pulmonary arteries. 2. Mild bibasilar infiltrates. Edilson Solis MD Abdomen/Pelvis CT 07/08/16 0000 Signed Impressions: Service Date/Time: Friday, July 08, 2016 18:29 - CONCLUSION: 1. Bibasilar atelectasis. 2. Stable cystic mass involving the proximal body of the pancreas. No significant change compared to 2012. 3. Small amount of free fluid in the pelvis. 4. Hepatocellular disease of the liver which appears to be stable. 5. No new or significant changes. Edilson Solis MD Physical Exam HEENT: Normocephalic; atraumatic; no jaundice. CHEST: CTA some rhonchi on occasion CARDIAC: RRR ABDOMEN: Soft, nondistended, nontender; no hepatosplenomegaly; bowel sounds are present in all four quadrants. PEG tube in place PEG site clean EXTREMITIES: No clubbing, cyanosis, or edema. SKIN: Normal; no rash; no jaundice. RUG HOOKER HAND: Nonverbal (Fernanda Tucker) Assessment and Plan Plan ASSESSMENT: - Pancreatic cystic mass. Abdomen/Pelvis CT (07/08/16)----> 1. Bibasilar atelectasis. 2. Stable cystic mass involving the proximal body of the pancreas. No significant change compared to 2012. 3. Small amount of free fluid in the pelvis. 4. Hepatocellular disease of the liver which appears to be stable. 5. No new or significant changes. This mass has been stable for many years. The patient's lipase has normalized. Not a candidate for endoscopic ultrasound and would recommend conservative measures. -Worsening Anemia with Gastroccult positive. S/P EGD (07/18/16)-----> 1. Duodenitis second portion-biopsy, nodular mucosa duodenal bulb, gastritis antrum-biopsy, peg in body, esophagitis distal esophagus, 2. Retroflexed views revealed a hiatal hernia. Pathology pending. PPI. HH stable 8.01/22.8 PLAN: - TF as tolerated - Await pathology - PPI - Monitor HH - Transfuse as necessary - Supportive care - Further recommendations to follow based on results of above - Pt seen and examined by Dr. Sosa and myself and this note is written on her behalf (Fernanda Tucker) Physician Comments agree (Martha Sosa MD) Fernanda Tucker Jul 18, 2016 12:36 Martha Sosa MD Jul 18, 2016 17:04
[2016-07-18] MEDS ORDERED: ACETAMINOPHEN 650 MG/20.3 ML UDC PO PRN (13:45)
[2016-07-18] MEDS ORDERED: MISCELLANEOUS PHARMACY INFORMATION OTHER ONE (15:45)
[2016-07-18] MEDS ORDERED: WARFARIN SOD 2 MG TAB PO SCH (16:00)
[2016-07-18] MEDS ORDERED: WARFARIN SOD 3 MG TAB PO SCH (16:00)
[2016-07-18] MEDS: FLUCONAZOLE 400 MG PREMIX BAG 200 ML IV SCH (23:46)
[2016-07-19] VITALS (8 sets, daily range): BP systolic 132–166; BP diastolic 63–88; PULSE 97–123; RESP 18–20; TEMP 98–99.9; O2SAT 94–100
[2016-07-19] MEDS: PHENYTOIN INJ 100 MG/2 ML VIAL IV SCH ×3 (06:00→23:31)
[2016-07-19] MEDS: METOCLOPRAMIDE HCL 10 MG/2 ML VIAL IV PUSH SCH ×3 (06:00→23:32)
--- NOTE | 2016-07-19 10:28 | HHI.PR ---
Subjective Subjective Remarks Eyes open Nonverbal Watery diarrhea Occasionally will follow voice (Eugenia Cortez) Review of Systems Constitutional Constitutional: Fatigue (chronic), Weakness (chronic) Constitutional Remarks 10 point ROS done, no acute changes noted except for watery diarrhea, (Eugenia Cortez) Pulmonary Pulmonary Remarks Low volumes (Eugenia Cortez) Musculoskeletal MS: Weakness, Stiffness (Eugenia Cortez) Vitals/Results Intake & Output 07/18/16 07/18/16 07/19/16 14:59 22:59 06:59 Intake Total 0 ml 1167 ml Balance 0 ml 1167 ml Intake Oral 0 ml 0 ml IV Total 1167 ml # Voids 2 1 # Bowel Movements 1 0 2 Vital Signs Vital Signs Date Time Temp Pulse Resp B/P Pulse Ox O2 Delivery O2 Flow Rate FiO2 07/19/16 04:42 99.9 107 18 165/71 97 07/19/16 00:10 99.0 109 18 140/68 94 07/18/16 20:14 110 07/18/16 20:02 100.1 80 20 113/55 96 07/18/16 20:00 Room Air 07/18/16 16:00 97.4 106 20 150/65 96 07/18/16 12:00 98.3 94 20 140/62 93 (Eugenia Cortez) CBC/BMP: 07/17/16 0707 07/17/16 0707 Imaging Remarks Last Impressions Upper Extremity Ultrasound 07/17/16 0000 Signed Impressions: Service Date/Time: Sunday, July 17, 2016 15:21 - CONCLUSION: Occlusive thrombus within the right basilic vein. Antoni Frias MD Abdomen X-Ray 07/14/16 0000 Signed Impressions: Service Date/Time: Thursday, July 14, 2016 10:23 - CONCLUSION: Mild gaseous distention of multiple bowel loops without definite obstruction. Gideon De La Fuente MD Chest X-Ray 07/08/16 1554 Signed Impressions: Service Date/Time: Friday, July 08, 2016 16:33 - CONCLUSION: Mild suspected atelectasis or consolidation at the left base. Kye Montiel MD CT Angiography 07/08/16 0000 Signed Impressions: Service Date/Time: Friday, July 08, 2016 18:29 - CONCLUSION: 1. Limited study from motion artifact. No definite PE in the main pulmonary arteries. 2. Mild bibasilar infiltrates. Edilson Solis MD Abdomen/Pelvis CT 07/08/16 0000 Signed Impressions: Service Date/Time: Friday, July 08, 2016 18:29 - CONCLUSION: 1. Bibasilar atelectasis. 2. Stable cystic mass involving the proximal body of the pancreas. No significant change compared to 2012. 3. Small amount of free fluid in the pelvis. 4. Hepatocellular disease of the liver which appears to be stable. 5. No new or significant changes. Edilson Solis MD Current Medications Active Medications Acetaminophen (Tylenol 650 Mg/ 20 ml Liq) 650 mg Q6H PRN PO; Start 07/18/16 at 13:45 Miscellaneous Medication ([facility] [place] Pharmacy Information) ok to start Couma... ONCE ONCE OTHER Last administered on 07/18/16 15:45; Admin Dose 1; Start 07/18/16 at 15:45; Stop 07/18/16 at 15:49; Status DC Patient Medication Teaching (Coumadin Booklet) 1 ONCE ONCE XX Last administered on 07/18/16 16:52; Admin Dose 1; Start 07/18/16 at 16:00; Stop at 16:01; Status DC Pharmacy Profile Note (Coumadin Consult Pharmacy) 0 ml @ 0 mls/hr UNSCH OTHER; Start 07/18/16 at 13:45; Status Hold Warfarin Sodium (Coumadin) 2 mg ONCE PO Last administered on 07/18/16 16:51; Admin Dose 2 MG; Start 07/18/16 at 16:00; Stop 07/18/16 at 16:01; Status DC Warfarin Sodium 3 mg 3 mg DAILY@16 PO; Start 07/18/16 at 16:00; Stop 07/18/16 at 16:00; Status DC (Eugenia Cortez) Physical Exam General General Appearance: No Acute Distress, Pale (mucous membranes) (Eugenia Cortez) Eyes Eye Exam: Pupils Equal, Pupils Reactive Eye Remarks Eyes open, appears to hear verbal but nontracking (Die[place],Eugenia M. SENIOR ANALYTICAL CHEMIST) Ears & Nose Ears & Nose Exam: Nasal Mucosa [place] ([place],Eugenia M. SENIOR ANALYTICAL CHEMIST) Throat Throat Exam: Oral Mucosa [place] & Moist (pale) (DiegoEugenia M. SENIOR ANALYTICAL CHEMIST) Neck Neck Exam: Neck Supple, Trachea Midline ([place] M. SENIOR ANALYTICAL CHEMIST) Pulmonary Resp Exam: Decreased Bases, Diminished Breath Sounds, Poor Inspiratory Effort ( DiegoEugenia M. SENIOR ANALYTICAL CHEMIST) Cardiology CV Exam: Regular (DiegoEugenia M. SENIOR ANALYTICAL CHEMIST) Gastrointestinal/Abdomen GI Exam: Bowel Sounds Present, Positive Bowel Movement, Distended, Bowel Sounds Hyperactive GI Remarks Watery diarrhea almost constant today (DiegoEugenia M. SENIOR ANALYTICAL CHEMIST) Musculoskeletal MS Exam: Joints Intact, Atrophy ([place] M. SENIOR ANALYTICAL CHEMIST) Integumentary Skin Exam: Warm, Dry (DiegoEugenia M. SENIOR ANALYTICAL CHEMIST) Extremeties Extremities Exam: Pedal Pulses Palpable, Trace Edema ([place] M. SENIOR ANALYTICAL CHEMIST) Neurologic Neuro Exam: Awake ([place],Eugenia M. SENIOR ANALYTICAL CHEMIST) VTE Prophylaxis VTE Prophylaxis Device: SCDs VTE Prophylaxis Meds: Heparin ([place] M. SENIOR ANALYTICAL CHEMIST) Assessment/Plan Assessment/Plan 1. Shortness of breath,low air volumes, tachypnea and tachycardia, etiology unclear, recurrent infection, possible early pneumonia, probable aspiration. 2. elevated lipase, possible pancreatitis. This could be causing pain resulting in tachycardia and tachypnea. 3. Respiratory alkalosis. 4. Hypertension., 5. History of dense CVA with right hemiplegia. 6. History of liver disease. 7. History of depression. 8. History of seizure disorder, recurrent seizures 9. Recent respiratory failure and pneumonia. 10.Poor performance status. 11.Severe protein calorie malnutrition. 12.Chronic kidney disease, stage II. 13.History of breast cancer. 14. Encephalopathy 15. Hypernatremia 16. Thrombocytopenia 17. Abd distension, ? ileus 18. Anemia, gastroccult + 19. Right arm thrombus basilic vein 20. Severe diarrhea abd., bloating tolerating tube feeding, continue continue Reglan , but extreme watery down diarrhea this a.m. Will check stool culture, medications prn, will update GI for any further symptom management. Added back Imodium every 6 hours Nutrition consult, eval best tube feed for patient long-term with her diarrhea. Check stool culture, and recheck for C. difficile blood c/s +ve C albican urine c/s +ve C albicans ID input appreciated cont IV diflucan cdiff negative oxygen PRN Duonebs PRN Appreciate GI input Recommend conservative treatment S/P EGD 07/17-Duodenitis, gastritis,esophagitis distal esophagus/Retroflexed views revealed a hiatal hernia Watery brown diarrhea today, rectal [place] in Anemia, probable secondary to chronic disease, and iron deficiency, nutrition Will have spa assistant manager eval this tube feed for patient Appreciate neuro input seizure precautions, none noted for now EEG shows mild to moderate encephalopathy. no active seizures. vascular team noted poss. thrombus right arm US right arm-thrombus basilic vein Coumadin therapy, monitor, INR 1 today, pharmacy to dose PPI for GI prophylaxis Heparin for DVT prophylaxis Appreciate palliative care input family request full aggressive care for now Poor prognosis We will monitor diarrhea, and stabilize for discharge planning D/W RN X 2 D/W Dr. Pittman, patient seen on his behalf (Eugenia Cortez) Assessment/Plan Patient seen and examined as above Meds labs and cultures reviewed Some of previous notes reviewed Plan for UA again Discussed with SENIOR ANALYTICAL CHEMIST about plan of care Condition guarded Discussed with casey saw operator about DC planning (Kendy Pittman MD) Eugenia Cortez Jul 19, 2016 10:28 Kendy Pittman MD Jul 19, 2016 13:31
[2016-07-19] MEDS: BENEPROTEIN POWDER 1 PACK G-TUBE SCH ×3 (12:25→17:46)
[2016-07-19] MEDS: METOPROLOL TARTRATE 25 MG TAB G-TUBE SCH ×2 (12:25→23:29)
[2016-07-19] MEDS: SODIUM CHLORIDE 0.9% FLUSH 5 ML FLUSH FLUSH SCH ×2 (12:25→23:35)
[2016-07-19] MEDS: DILTIAZEM HCL 30 MG TAB PO SCH ×4 (12:26→23:30)
[2016-07-19] MEDS: levETIRAcetam 500 MG/5 ML UDC PO/TUBE SCH ×2 (12:26→23:30)
[2016-07-19] MEDS: cloNIDine HCL 0.1 MG TAB PO SCH ×2 (12:26→23:30)
[2016-07-19] MEDS: LISINOPRIL 20 MG TAB PO SCH (12:26)
[2016-07-19] MEDS: LOPERAMIDE HCL SOLN 2 MG/10 ML UDC PO SCH ×3 (12:26→23:54)
[2016-07-19] MEDS: PANTOPRAZOLE SODIUM 40 MG VIAL IV SCH ×2 (12:26→23:32)
[2016-07-19 12:56] LABS: INTERNATIONAL NORMALIZED RATIO 1.1 RATIO; PROTHROMBIN TIME - PATIENT 12.1 SEC (9.8-11.6)
--- NOTE | 2016-07-19 16:59 | HHI.IDPN ---
Note Infectious Disease Note Notes reviewed. Patient is awake and responsive. Little verbal response but she says she feels okay. Afebrile. Has watery diarrhea. PAST MEDICAL HISTORY: 1. Hypertension. 2. Gastroesophageal reflux disease (GERD). 3. Sleep apnea. 4. Depression. 5. History of breast cancer. 6. History of intracerebral bleed. 7. History of pancreatic pseudocyst. 8. Mastectomy. 9. Fulguration of [place]-Jaimes tear. 10. PEG-tube placement. 11. CVA. ALLERGIES: Aspirin. MEDICATIONS: Current Medications Medications (Trade) Dose Ordered Sig/Sharmila Route PRN Reason Start Time Stop Time Status Last Admin Dose Admin Clonidine (Catapres) 0.1 mg BID PO 07/08/16 21:00 07/19/16 12:26 Lisinopril (Prinivil) 20 mg DAILY PO 07/09/16 09:00 07/19/16 12:26 IV Flush (NS Flush) 2 ml UNSCH PRN FLUSH FLUSH AFTER USING IV ACCESS 07/08/16 20:15 07/12/16 05:24 IV Flush (NS Flush) 2 ml BID FLUSH 07/08/16 21:00 07/19/16 12:25 Acetaminophen (Tylenol) 650 mg Q4H PRN PO TEMP > 100.4 07/08/16 20:15 07/13/16 17:35 Ondansetron HCl (Zofran Inj) 4 mg Q6H PRN IVP NAUSEA OR VOMITING 07/08/16 20:15 07/14/16 17:31 Heparin Sodium (Porcine) (Heparin Inj) 5,000 units Q12H SQ 07/08/16 21:00 Hold 07/15/16 20:40 Naloxone HCl (Narcan Inj) 0.4 mg UNSCH PRN IV SEE LABEL COMMENTS 07/08/16 20:15 Metoprolol Tartrate (Lopressor) 25 mg Q12HR G-TUBE 07/09/16 12:30 07/19/16 12:25 Morphine Sulfate (Morphine Inj) 2 mg Q6HR PRN IV PUSH PAIN SCALE 4 TO 10 07/09/16 17:15 07/18/16 08:45 Protein (Beneprotein Powder) 1 pack TID G-TUBE 07/11/16 09:00 07/19/16 13:40 Phenytoin Sodium 100 mg 100 mg Q8H IV 07/11/16 22:00 07/19/16 13:40 Fluconazole/ Sodium Chloride (Diflucan 400 Mg Premix Bag) 200 ml @ 100 mls/hr Q24H IV 07/11/16 22:00 07/18/16 23:46 Levetriacetam (Keppra Liq) 750 mg Q12HR PO/TUBE 07/12/16 21:00 07/19/16 12:26 Diltiazem HCl (Cardizem) 30 mg QID PO 07/13/16 18:00 07/19/16 12:26 Pantoprazole Sodium (Protonix Inj) 40 mg BID IV 07/14/16 04:59 07/19/16 12:26 Metoclopramide HCl 10 mg 10 mg Q8HR IV PUSH 07/14/16 16:00 07/19/16 13:40 Pharmacy Profile Note (Coumadin Consult Pharmacy) 0 ml @ 0 mls/hr UNSCH OTHER 07/18/16 13:45 Hold Acetaminophen (Tylenol 650 Mg/ 20 ml Liq) 650 mg Q6H PRN PO PAIN SCALE 1 TO 4 07/18/16 13:45 Loperamide HCl (Imodium Liq) 2 mg Q6HR PO 07/19/16 12:00 07/19/16 12:26 SOCIAL HISTORY: No tobacco, no alcohol. No illicit drugs. The patient is a custodial resident. OBJECTIVE: Vital Signs Date Time Temp Pulse Resp B/P Pulse Ox O2 Delivery O2 Flow Rate FiO2 07/19/16 12:00 98.0 115 20 150/77 98 07/19/16 10:55 95 Nasal Cannula 2.00 07/19/16 08:00 98.0 112 20 166/88 95 07/19/16 04:42 99.9 107 18 165/71 97 07/19/16 00:10 99.0 109 18 140/68 94 07/18/16 20:14 110 07/18/16 20:02 100.1 80 20 113/55 96 07/18/16 20:00 Room Air 07/18/16 07/18/16 07/19/16 15:00 23:00 07:00 Intake Total 0 ml 1167 ml Balance 0 ml 1167 ml Intake Oral 0 ml 0 ml IV Total 1167 ml # Voids 2 1 # Bowel Movements 1 0 2 IMAGING: Upper Extremity Ultrasound 07/17/16 0000 Signed Impressions: Service Date/Time: Sunday, July 17, 2016 15:21 - CONCLUSION: Occlusive thrombus within the right basilic vein. Antoni Frias MD Abdomen X-Ray 07/14/16 0000 Signed Impressions: Service Date/Time: Thursday, July 14, 2016 10:23 - CONCLUSION: Mild gaseous distention of multiple bowel loops without definite obstruction. Gideon De La Fuente MD Chest X-Ray 07/08/16 1554 Signed Impressions: Service Date/Time: Friday, July 08, 2016 16:33 - CONCLUSION: Mild suspected atelectasis or consolidation at the left base. Kye Montiel MD CT Angiography 07/08/16 0000 Signed Impressions: Service Date/Time: Friday, July 08, 2016 18:29 - CONCLUSION: 1. Limited study from motion artifact. No definite PE in the main pulmonary arteries. 2. Mild bibasilar infiltrates. Edilson Solis MD Abdomen/Pelvis CT 07/08/16 0000 Signed Impressions: Service Date/Time: Friday, July 08, 2016 18:29 - CONCLUSION: 1. Bibasilar atelectasis. 2. Stable cystic mass involving the proximal body of the pancreas. No significant change compared to 2013. 3. Small amount of free fluid in the pelvis. 4. Hepatocellular disease of the liver which appears to be stable. 5. No new or significant changes. Edilson Solis MD PHYSICAL EXAMINATION: GENERAL: Patient is alert. HEENT: No icterus. Oropharynx has dry mucosa. NECK: The neck is supple without adenopathy or masses. HEART: Regular S1 and S2. LUNGS: Decreased breath sounds. Clear. ABDOMEN: Bowel sounds present, soft, nontender. EXTREMITIES: No clubbing or cyanosis. No edema. SKIN: Warm and dry. NEUROLOGIC: Unable to assess. PSYCHIATRIC: Unable to assess. IMPRESSION: 1. Candidemia. 2. Tamy albicans urinary tract infection. 3. Sepsis on admission indicated by tachycardia, leukocytosis and abnormal urinalysis being the foci of sepsis. RECOMMENDATIONS: Stop IV Diflucan. PO Diflucan until 07/22. Follow stool C. Difficile and treat with PO Flagyl if positive. César Smith MD Jul 19, 2016 16:59
[2016-07-19] MEDS: FLUCONAZOLE 100 MG TAB PO SCH (17:46)
[2016-07-19 19:04] LABS: C. DIFF EPI 027 PRESUMPTIVE NEGATIVE (NEGATIVE); C. DIFF TOXIN PCR NEGATIVE (NEGATIVE)
[2016-07-19] MEDS: MORPHINE SULFATE 4 MG/ML INJ IV PUSH PRN (23:54)
[2016-07-20] VITALS (9 sets, daily range): BP systolic 108–154; BP diastolic 56–66; PULSE 88–112; RESP 20; TEMP 97.8–99.1; O2SAT 95–100
[2016-07-20] MEDS: RESP: ALBUTEROL 2.5 MG/IPRATROPIUM 0.5 MG NEB (PRN) NEB ×3 (00:04→23:35)
[2016-07-20] MEDS: LOPERAMIDE HCL SOLN 2 MG/10 ML UDC PO SCH ×4 (05:40→23:00)
[2016-07-20] MEDS: PHENYTOIN INJ 100 MG/2 ML VIAL IV SCH ×3 (05:40→23:03)
[2016-07-20] MEDS: METOCLOPRAMIDE HCL 10 MG/2 ML VIAL IV PUSH SCH ×3 (05:40→22:00)
[2016-07-20 06:29] LABS: INTERNATIONAL NORMALIZED RATIO 1.1 RATIO; PROTHROMBIN TIME - PATIENT 11.9 SEC (9.8-11.6)
[2016-07-20] MEDS: SODIUM CHLORIDE 0.9% FLUSH 5 ML FLUSH FLUSH SCH ×2 (09:00→22:59)
[2016-07-20] MEDS: PANTOPRAZOLE SODIUM 40 MG VIAL IV SCH ×2 (09:00→21:00)
[2016-07-20] MEDS: cloNIDine HCL 0.1 MG TAB PO SCH ×2 (10:07→23:02)
[2016-07-20] MEDS: DILTIAZEM HCL 30 MG TAB PO SCH ×4 (10:07→23:02)
[2016-07-20] MEDS: levETIRAcetam 500 MG/5 ML UDC PO/TUBE SCH ×2 (10:07→23:00)
[2016-07-20] MEDS: METOPROLOL TARTRATE 25 MG TAB G-TUBE SCH ×2 (10:07→23:02)
[2016-07-20] MEDS: LISINOPRIL 20 MG TAB PO SCH (10:07)
[2016-07-20] MEDS: BENEPROTEIN POWDER 1 PACK G-TUBE SCH ×3 (10:08→17:12)
--- NOTE | 2016-07-20 13:01 | HHI.PR ---
Subjective Subjective Remarks Eyes open random Nonverbal Watery diarrhea, rectal kitchen No SOB noted, (Eugenia Cortez) Review of Systems Constitutional Constitutional: Fatigue (chronic), Weakness (chronic) Constitutional Remarks 10 point ROS done, no acute changes noted except for watery diarrhea, (Eugenia Cortez) Pulmonary Pulmonary Remarks Low volumes (Eugenia Cortez) Musculoskeletal MS: Weakness, Stiffness (Eugenia Cortez) Vitals/Results Intake & Output 07/19/16 07/19/16 07/20/16 15:00 23:00 07:00 Intake Total 1258 ml Balance 1258 ml Tube Feeding 1258 ml # Voids 2 2 # Bowel Movements 2 2 Vital Signs Vital Signs Date Time Temp Pulse Resp B/P Pulse Ox O2 Delivery O2 Flow Rate FiO2 07/20/16 12:00 97.8 88 20 108/56 95 07/20/16 08:30 Nasal Cannula 2.00 21 07/20/16 08:00 98.3 107 20 141/65 97 07/20/16 06:22 100 Nasal Cannula 2.00 07/20/16 04:00 99.1 101 20 124/58 95 07/20/16 00:34 98.4 112 20 130/61 95 07/20/16 00:06 99 Nasal Cannula 2.00 07/19/16 20:47 98.8 98 18 132/63 96 07/19/16 20:00 99 07/19/16 20:00 Nasal Cannula 2.00 07/19/16 16:00 98.6 97 20 150/63 100 (Eugenia Cortez) CBC/BMP: 07/17/16 0707 07/17/16 0707 Lab Results Laboratory Tests Test 07/19/16 07/20/16 16:45 05:55 Stool C. difficile Toxin (PCR) NEGATIVE Stl C. difficile Toxin PRESUMPTIVE Epiderm 027 NEGATIVE Prothrombin Time 11.9 SEC Prothromb Time International 1.1 RATIO Ratio Microbiology Microbiology 07/19/16 , Received Pending (Eugenia Cortez) Physical Exam General General Appearance: No Acute Distress, Pale (mucous membranes) (Eugenia Cortez) Eyes Eye Exam: Pupils Equal, Pupils Reactive Eye Remarks Eyes open, appears to hear verbal but nontracking (DiegoEugenia M. SUPERVISOR [employer]ING) Ears & Nose Ears & Nose Exam: Nasal Mucosa [place] (DiegoEugenia M. SUPERVIS[employer]) Throat Throat Exam: Oral Mucosa [place] & Moist (pale) ([place] M. SUPERVIS[employer]) Neck Neck Exam: Neck Supple, Trachea Midline ([place] M. SUPERVISOR [employer]) Pulmonary Resp Exam: Decreased Bases, Diminished Breath Sounds, Poor Inspiratory Effort ( DiegoEugenia M. SUPERVISOR [employer]) Cardiology CV Exam: Regular ([place] M. SUPERVIS[employer]) Gastrointestinal/Abdomen GI Exam: Bowel Sounds Present, Positive Bowel Movement, Distended, Bowel Sounds Hyperactive GI Remarks Watery diarrhea almost constant today ([place] M. SUPERVIS[employer]) Musculoskeletal MS Exam: Joints Intact, Atrophy (DiegoEugenia M. SUPER[employer]) Integumentary Skin Exam: Warm, Dry (DiegoEugenia M. SUPER[employer]) Extremeties Extremities Exam: Pedal Pulses Palpable, Trace Edema (DiegoEugenia M. SUPER[employer]) Neurologic Neuro Exam: Awake (DiegoEugenia M. SUPER[employer]) VTE Prophylaxis VTE Prophylaxis Device: SCDs VTE Prophylaxis Meds: Heparin (DiegoEugenia M. SUPER[employer]) Assessment/Plan Assessment/Plan Assessment/Plan 1. Shortness of breath,low air volumes, tachypnea and tachycardia, etiology unclear, recurrent infection, possible early pneumonia, probable aspiration. 2. elevated lipase, possible pancreatitis. This could be causing pain resulting in tachycardia and tachypnea. 3. Respiratory alkalosis. 4. Hypertension., 5. History of dense CVA with right hemiplegia. 6. History of liver disease. 7. History of depression. 8. History of seizure disorder, recurrent seizures 9. Recent respiratory failure and pneumonia. 10.Poor performance status. 11.Severe protein calorie malnutrition. 12.Chronic kidney disease, stage II. 13.History of breast cancer. 14. Encephalopathy 15. Hypernatremia 16. Thrombocytopenia 17. Abd distension, ? ileus 18. Anemia, gastroccult + 19. Right arm thrombus basilic vein 20. Severe diarrhea abd., bloating off and on, watery diarrhea again, rectal kitchen reinserted on possible secondary to tube feed. Request nutritional consult for any feed changes. Will check stool culture, medications prn, will update GI for any further symptom management. Imodium prn, eval bowel regimin today. and meds. Check stool culture,pending, obtained in lab C. difficile negative. Low K+, 07/17, will recheck BMP today UTI, on antibiotics , appreciate ID f/u will recheck U/A first of week, 5 day IV antibiotic for yeast. oxygen PRN Duonebs PRN Appreciate GI input Recommend conservative treatment S/P EGD 07/17-Duodenitis, gastritis,esophagitis distal esophagus/Retroflexed views revealed a hiatal hernia Anemia, probable secondary to chronic disease, and iron deficiency, nutrition Appreciate neuro input, signed off, no acitve seiqures. vascular team noted poss. thrombus right arm US right arm-thrombus basilic vein Coumadin therapy, PPI for GI prophylaxis Heparin for DVT prophylaxis Appreciate palliative care input family request full aggressive care for now Poor prognosis No family present , not visiting? (Eugenia Cortez) Assessment/Plan pt seen and examined as above previous note reviewed labs reviewed dw mobile qa tester about plan of care (Kendy Pittman MD) Eugenia Cortez Jul 20, 2016 13:01 Kendy Pittman MD Jul 20, 2016 15:14
[2016-07-20] MEDS ORDERED: WARFARIN SOD 5 MG TAB PO SCH (16:00)
[2016-07-20] MEDS: FLUCONAZOLE 100 MG TAB PO SCH (17:11)
[2016-07-21] VITALS (7 sets, daily range): BP systolic 115–152; BP diastolic 56–73; PULSE 88–109; RESP 18–21; TEMP 98.2–100.2; O2SAT 95–100
[2016-07-21 03:02] LABS: BICARBONATE 27.9 MEQ/L (21.0-32.0); POTASSIUM 4.4 MEQ/L (3.5-5.1)
[2016-07-21] MEDS: PHENYTOIN INJ 100 MG/2 ML VIAL IV SCH (06:00)
[2016-07-21] MEDS: METOCLOPRAMIDE HCL 10 MG/2 ML VIAL IV PUSH SCH (06:00)
[2016-07-21] MEDS: LOPERAMIDE HCL SOLN 2 MG/10 ML UDC PO SCH ×3 (06:33→18:30)
[2016-07-21] MEDS: BENEPROTEIN POWDER 1 PACK G-TUBE SCH ×3 (08:53→18:30)
[2016-07-21] MEDS: LISINOPRIL 20 MG TAB PO SCH (08:54)
[2016-07-21] MEDS: cloNIDine HCL 0.1 MG TAB PO SCH ×2 (08:54→21:14)
[2016-07-21] MEDS: METOPROLOL TARTRATE 25 MG TAB G-TUBE SCH ×2 (08:54→21:14)
[2016-07-21] MEDS: levETIRAcetam 500 MG/5 ML UDC PO/TUBE SCH ×2 (08:54→21:14)
[2016-07-21] MEDS: DILTIAZEM HCL 30 MG TAB PO SCH ×4 (08:54→21:14)
[2016-07-21] MEDS ORDERED: ACETAMINOPHEN 650 MG/20.3 ML UDC PEG PRN (09:00)
--- NOTE | 2016-07-21 09:05 | HHI.PR ---
Subjective Subjective Remarks Eyes open random, appears sleeping most of the time. Nonverbal diarrhea off and on No SOB noted, tube feeding changed today (Eugenia Cortez) Review of Systems Constitutional Constitutional: Fatigue (chronic), Weakness (chronic) Constitutional Remarks 10 point ROS done, no acute changes noted except diarrhea old CVA, other systems unremarkable, new PEG tolerating feedings well (Eugenia Cortez) Pulmonary Pulmonary Remarks Low volumes (Eugenia Cortez) GI/Abdomen GI/Abdominal Exam: Diarrhea (has rectal kitchen several times this adm.) (Eugenia Cortez) Musculoskeletal MS: Weakness, Stiffness MS Remarks old CVA (Eugenia Cortez) Neurologic Neurologic: Lethargic (Eugenia Cortez) Vitals/Results Intake & Output 07/20/16 07/20/16 07/21/16 15:00 23:00 07:00 Intake Total 1201 ml Balance 1201 ml Tube Feeding 1201 ml # Voids 2 Vital Signs Vital Signs Date Time Temp Pulse Resp B/P Pulse Ox O2 Delivery O2 Flow Rate FiO2 07/21/16 04:00 98.6 102 18 115/66 98 07/21/16 00:00 98.6 88 20 125/59 97 07/20/16 21:05 Nasal Cannula 2.00 07/20/16 20:00 Nasal Cannula 2.00 07/20/16 20:00 98.9 104 20 154/66 97 07/20/16 20:00 99 07/20/16 16:08 104 07/20/16 16:00 98.8 88 20 120/56 98 07/20/16 13:49 2.00 07/20/16 12:00 97.8 88 20 108/56 95 (Eugenia Cortez) CBC/BMP: 07/17/16 0707 07/21/16 0005 Lab Results Laboratory Tests Test 07/21/16 00:05 Sodium Level 142 MEQ/L Potassium Level 4.4 MEQ/L Chloride Level 108 MEQ/L Carbon Dioxide Level 27.9 MEQ/L Anion Gap 6 MEQ/L Blood Urea Nitrogen 8 MG/DL Creatinine 0.91 MG/DL Estimat Glomerular Filtration 74 ML/MIN Rate Random Glucose 116 MG/DL Calcium Level 7.9 MG/DL Current Medications Active Medications Famotidine (Pepcid Liq) 40 mg BID NG; Start 07/21/16 at 09:00; Status UNV Phenytoin (Dilantin Liq) 100 mg Q8HR PO; Start 07/21/16 at 09:00; Status UNV Warfarin Sodium (Coumadin) 5 mg DAILY@1600 PO Last administered on 07/20/16t 16: 55; Admin Dose 5 MG; Start 07/20/16 at 16:00 (Eugenia CortezP) Physical Exam General General Appearance: No Acute Distress, Pale (mucous membranes) (Eugenia Cortez. MUSCULOSKELETAL PHYSIOTHERAPIST) Eyes Eye Exam: Pupils Equal, Pupils Reactive Eye Remarks Eyes open, appears to hear verbal but nontracking (Eugenia Cortez MUSCULOSKELETAL PHYSIOTHERAPIST) Ears & Nose Ears & Nose Exam: Nasal Mucosa [place] (Eugenia Cortez MUSCULOSKELETAL PHYSIOTHERAPIST) Throat Throat Exam: Oral Mucosa [place] & Moist (pale) (Eugenia Cortez MUSCULOSKELETAL PHYSIOTHERAPIST) Neck Neck Exam: Neck Supple, Trachea Midline (Eugenia Cortez MUSCULOSKELETAL PHYSIOTHERAPIST) Pulmonary Resp Exam: Decreased Bases, Diminished Breath Sounds, Poor Inspiratory Effort ( Eugenia Cortez MUSCULOSKELETAL PHYSIOTHERAPIST) Cardiology CV Exam: Regular (Eugenia Cortez MUSCULOSKELETAL PHYSIOTHERAPIST) Gastrointestinal/Abdomen GI Exam: Bowel Sounds Present, Positive Bowel Movement, Distended, Bowel Sounds Hyperactive GI Remarks diarrhea continues to wax and wane (Eugenia Cortez MUSCULOSKELETAL PHYSIOTHERAPIST) Musculoskeletal MS Exam: Joints Intact, Atrophy (Eugenia Cortez MUSCULOSKELETAL PHYSIOTHERAPIST) Integumentary Skin Exam: Warm, Dry (Eugenia Cortez MUSCULOSKELETAL PHYSIOTHERAPIST) Extremeties Extremities Exam: Pedal Pulses Palpable, Trace Edema (Eugenia Cortez MUSCULOSKELETAL PHYSIOTHERAPIST) Neurologic Neuro Exam: Awake (Eugenia Cortez. MUSCULOSKELETAL PHYSIOTHERAPIST) VTE Prophylaxis VTE Prophylaxis Device: SCDs VTE Prophylaxis Meds: Heparin (Eugenia Cortez MUSCULOSKELETAL PHYSIOTHERAPIST) Assessment/Plan Assessment/Plan 1. Shortness of breath,low air volumes, tachypnea and tachycardia, etiology unclear, recurrent infection, possible early pneumonia, probable aspiration. , Resolved, monitor medical management, patient now has PEG tube in his maintained nothing by mouth 2. elevated lipase, possible pancreatitis. , Resolved 3. Respiratory alkalosis. resolved 4. Hypertension., stable 5. History of dense CVA with right hemiplegia., stable 6. History of liver disease., stable 7. History of depression. medical management 8. History of seizure disorder, recurrent seizures , Dilantin is now by mouth per PEG 9. Recent respiratory failure and pneumonia., Stabilized 10.Poor performance status., Condition guarded 11.Severe protein calorie malnutrition., Changing tube feeds today to vital 1.5 12.Chronic kidney disease, stage II., Monitor medical management 13.History of breast cancer., Stable 14. Encephalopathy, unchanged medical management 15. Hypernatremia , resolved 16. Thrombocytopenia , stable 17. Abd distension, stable for now 18. Anemia, gastroccult + , medical management, GI has been following 19. Right arm thrombus basilic vein, heparin subcutaneous vascular team noted poss. thrombus right arm US right arm-thrombus basilic vein Coumadin therapy, 20. Severe diarrhea, continue patient with Imodium as needed and around-the- clock. Diarrhea amounts of wax and wane. We'll change tube feed today to vital 1.5 ,DC Jevity and continue to monitor diarrhea, nutritional consult for any expert opinion to control diarrhea., C. difficile 2 is negative, stool culture is pending,Appreciate GI input Recommend conservative treatment S/P EGD 07/17-Duodenitis, gastritis,esophagitis distal esophagus/Retroflexed views revealed a hiatal hernia Anemia, probable secondary to chronic disease, and iron deficiency, nutrition 21. UTI, on antibiotics , appreciate ID f/u will recheck U/A first of week ordered. On by mouth Diflucan, yeast Tylenol with the PEG when necessary for pain Appreciate palliative care input family request full aggressive care for now Poor prognosis No family present , not visiting? Discharge planning as soon as diarrhea is controlled (Eugenia Cortez) Assessment/Plan Patient seen and examined as above Labs reviewed Radiological data reviewed Previous notes reviewed Plan of care discussed with MUSCULOSKELETAL PHYSIOTHERAPIST Explained to patient (Kendy Pittman MD) Eugenia Cortez Jul 21, 2016 09:05 Kendy Pittman MD Jul 21, 2016 15:24
[2016-07-21] MEDS: FAMOTIDINE 20 MG TAB NG SCH ×2 (10:10→21:14)
[2016-07-21] MEDS: PHENYTOIN SUSP 100 MG/4 ML CUP PO SCH ×2 (10:10→18:30)
[2016-07-21 11:12] LABS: INTERNATIONAL NORMALIZED RATIO 1.1 RATIO; PROTHROMBIN TIME - PATIENT 12.4 SEC (9.8-11.6)
[2016-07-21] MEDS ORDERED: WARFARIN SOD 7.5 MG TAB PO SCH (16:00)
[2016-07-21] MEDS ORDERED: WARFARIN SOD 7.5 MG TAB PO ONE (16:00)
[2016-07-21] MEDS: FLUCONAZOLE 100 MG TAB PO SCH (18:30)
[2016-07-21] MEDS: RESP: ALBUTEROL 2.5 MG/IPRATROPIUM 0.5 MG NEB (PRN) NEB (19:14)
[2016-07-22] VITALS: BP 119/56; PULSE 95; RESP 20; TEMP 97.4; O2SAT 96
[2016-07-22] MEDS: LOPERAMIDE HCL SOLN 2 MG/10 ML UDC PO SCH ×2 (00:57→06:13)
[2016-07-22] MEDS: PHENYTOIN SUSP 100 MG/4 ML CUP PO SCH ×2 (00:57→09:42)
[2016-07-22 04:00] VITALS: BP 109/67; PULSE 67; RESP 14; TEMP 99; O2SAT 93
[2016-07-22 08:00] VITALS: BP 147/68; PULSE 102; RESP 22; TEMP 99.5; O2SAT 97
[2016-07-22] MEDS: DILTIAZEM HCL 30 MG TAB PO SCH ×2 (09:41→12:34)
[2016-07-22] MEDS: cloNIDine HCL 0.1 MG TAB PO SCH (09:41)
[2016-07-22] MEDS: FAMOTIDINE 20 MG TAB NG SCH (09:41)
[2016-07-22] MEDS: levETIRAcetam 500 MG/5 ML UDC PO/TUBE SCH (09:42)
[2016-07-22] MEDS: METOPROLOL TARTRATE 25 MG TAB G-TUBE SCH (09:42)
[2016-07-22] MEDS: BENEPROTEIN POWDER 1 PACK G-TUBE SCH ×2 (09:43→12:35)
[2016-07-22] MEDS: LISINOPRIL 20 MG TAB PO SCH (09:43)
[2016-07-22] MEDS ORDERED: COUM5TAB PO (10:10)
[2016-07-22] MEDS ORDERED: LEVE500S PO/TUBE (10:10)
[2016-07-22] MEDS ORDERED: DIFL100T PO (10:10)
[2016-07-22] MEDS ORDERED: DILT31TA PO (10:10)
[2016-07-22] MEDS ORDERED: PHEN125S PO (10:10)
--- NOTE | 2016-07-22 10:11 | HHI.DCPOC ---
Discharge Care Plan Diagnosis: (1) UTI (urinary tract infection) (2) Tachycardia with heart rate 121-140 beats per minute (3) Atrial fibrillation with rapid ventricular response Your Health Problems Are: Anxiety Difficulty with ADL Irregular Bowel Function Goals to Promote Your Health * To prevent worsening of your condition and complications * To maintain your health at the optimal level Directions to Meet Your Goals Take your medications as prescribed Follow your dietary instruction Follow activity as directed Keep your appointments as scheduled Take your immunizations and boosters as scheduled If your symptoms worsen call your PCP, if no PCP go to Urgent Care Center or Emergency Room Smoking is Dangerous to Your Health. Avoid second hand smoke Call the 24-hour hour crisis hotline for domestic abuse at Yessy Nicole [facility] Jul 22, 2016 10:11
--- NOTE | 2016-07-22 11:12 | HHI.HCPN ---
Reason for visit a. To assist with evaluation and management of symptoms including: debility and shortness of breath. b. To assist medical decision maker(s) with: better understanding of current medical conditions; weighing benefits/burdens of medical treatment options; making medical treatment decisions. . Subjective/Interval History Patient seen in her room, she was laying in bed in no acute distress. Patient arouses easily to verbals stimuli. Following some simple commands. Nodding head to yes/no questions. Answered "no" when asked about pain, shortness of breath or discomfort. No family at bedside. Patient afebrile today. Mildly tachycardic with HR in the low 100's. Tolerating O2 via NC at 2L. Oxygen sat in the mid 90's. lab yesterday including sodium 142 , potassium 4.4, BUN/creatinine 8/0.91. Intermittent diarrhea, C. difficile negative 2. ID following, Diflucan has been changed to by mouth/PEG tube. GI following. Patient underwent EGD on 07/18/16, pathology report negative for malignancy. No H. pylori or fungal organisms identified. Tube feeding was replaced on 07/21/16. . Family/friend interactions Telephone conversation with patient's daughter Cat. Medical update provided. Reviewed events over the weekend to include PEG tube replaced and EGD results. Goals of care remain unchanged. Patient likely to be discharged to date on her health and rehabilitation this afternoon. Family aware. . Advance Directives Living Will: Never completed Health Care Surrogate: Never completed Durable Power of Operations Consultant: Copy in medical record Advance Directive Specifics Date completed: General power of civil attorney completed on August 22, 2010. . Health Care Surrogate(s): As per daughter, no living will or healthcare surrogate designation has been completed. As per [place] statute, all 3 of patient's children would be healthcare decision-maker's. . Documented care wishes: No living will has been completed. . Significant change in goals: As per family, goals of treatment remain unchanged. Continue of aggressive care to include CPR, intubation and mechanical ventilation if medically indicated. Family hoping for clinical improvement with the goal of returning patient to long-term facility. . Objective Vital Signs Date Time Temp Pulse Resp B/P Pulse Ox O2 Delivery O2 Flow Rate FiO2 07/22/16 08:00 99.5 102 22 147/68 97 07/22/16 04:00 99.0 67 14 109/67 93 07/22/16 00:00 97.4 95 20 119/56 96 07/21/16 20:00 Nasal Cannula 2.00 07/21/16 20:00 106 07/21/16 20:00 99.4 109 20 130/73 96 07/21/16 16:00 100.2 105 21 152/67 95 07/21/16 16:00 Nasal Cannula 2.00 07/21/16 13:50 Nasal Cannula 2.00 07/21/16 12:00 Nasal Cannula 2.00 07/21/16 12:00 98.2 100 18 121/56 100 Intake & Output 07/22/16 07/22/16 07:00 19:00 Intake Total 468 ml Balance 468 ml Tube Feeding 468 ml # Voids 1 # Bowel Movements 1 Physical Exam CONSTITUTIONAL/GENERAL: This is an elderly female laying in bed in no acute distress, appears older than stated age. TUBES/LINES/DRAINS: PIV's. Nasal cannula. SKIN: No jaundice, rashes, or lesions. No wounds seen anteriorly. Skin temperature appropriate. Not diaphoretic. HEAD: Atraumatic. Normocephalic. EYES: Pupils equal and round and reactive. No scleral icterus. No injection or drainage. ENT: Hearing appears grossly normal. Nose without bleeding or purulent drainage. Dry lips. NECK: Trachea midline. Supple. CARDIOVASCULAR: Irregular rate and rhythm without murmurs, gallops, or rubs. Peripheral pulses symmetric. RESPIRATORY/CHEST: Symmetric, unlabored respirations. Clear diminished breath sounds. GASTROINTESTINAL: Abdomen soft, non-tender, nondistended. No guarding. Bowel sounds present. PEG tube in place, site clean. NEUROLOGICAL: Awake. Alert, opening eyes to verbal stimuli. Responds to some simple questions with 1-2 word answers. Follows some simple commands. PSYCHIATRIC: Unable to assess secondary to clinical condition. Appears calm. . Diagnostic Tests Laboratory Laboratory Tests Test 07/19/16 07/19/16 07/20/16 07/21/16 12:15 16:45 05:55 00:05 Prothrombin Time 12.1 SEC 11.9 SEC (9.8-11.6) (9.8-11.6) Prothromb Time International 1.1 RATIO 1.1 RATIO Ratio Stool C. difficile Toxin (PCR) NEGATIVE (NEGATIVE) Stl C. difficile Toxin PRESUMPTIVE Epiderm 027 NEGATIVE (NEGATIVE) Sodium Level 142 MEQ/L (136-145) Potassium Level 4.4 MEQ/L (3.5-5.1) Chloride Level 108 MEQ/L (98-107) Carbon Dioxide Level 27.9 MEQ/L (21.0-32.0) Anion Gap 6 MEQ/L (5-15) Blood Urea Nitrogen 8 MG/DL (7-18) Creatinine 0.91 MG/DL (0.50-1.00) Estimat Glomerular Filtration 74 ML/MIN (>89) Rate Random Glucose 116 MG/DL (74-106) Calcium Level 7.9 MG/DL (8.5-10.1) Test 07/21/16 10:45 Prothrombin Time 12.4 SEC (9.8-11.6) Prothromb Time International 1.1 RATIO Ratio Result Diagram: 07/21/16 0005 Microbiology Microbiology Date/Time Procedure Status Source Growth 07/19/16 16:45 - Final Complete Stool Stool NO ENTERIC PATHOGENS DETECTED BY PCR... Procedures * 07/21/16 -PEG tube replaced * 07/18/16 -EGD with biopsy . Assessment and Plan Disease Oriented Problem List: (1) CVA (cerebral vascular accident) (2) Respiratory distress (3) Tachycardia with heart rate 121-140 beats per minute Symptom Scale: (1) Shortness of breath 0-10 Scale: Unable to quantify Comment: Currently tolerating O2 via nasal cannula PRN (2) Debility 0-10 Scale: Unable to quantify Comment: Progressive secondary to CVA, bedbound state. Pertinent Non-Medical Issues Psychosocial: . Resident of long-term facility. Has 3 children. Spiritual: Spiritism. Legal: No living will completed. Ethical issues impacting care: No living will completed. . Important Contacts Daughter Cat Childress [phone]. . Prognosis Mrs. Childress is a 70-year-old female with a medical history significant of left MCA stroke with right-sided hemiparesis, COPD, schizoaffective disorder, dementia, history of of intracranial aneurysm bleed, hypertension, seizure disorder, liver cirrhosis who is a long-term resident at [facility] rehabilitation for the past 5 years. Patient presented to the ED on 07/09/16 with complaints of shortness of breath and was admitted for further management. Recent prolonged hospitalization from 06/17/16 to 07/06/16 secondary to acute respiratory distress and urosepsis. At that time patient required intubation and mechanical ventilation. Patient is full care, bedbound with a PPS of 30%. Overall prognosis is poor for an improved quality of life given patient's age, bedbound state, neurological deficits, multiple comorbidities and acute events. Patient is a very high risk for further decline, complications and . . Code Status: Full Code Plan * CODE STATUS: Full code. Risks, benefits and limitations of CPR, intubation and mechanical ventilation discussed with daughter Cat on 07/10/16 given patient's bedbound state and neurological deficit secondary to CVA. Family electing for continuation of full code at this time. * HEALTHCARE DECISION-MAKING: Patient incapacitated secondary to clinical condition. As per daughter, no living will or healthcare surrogate designation has been completed. Per [place] statute, in the absence of written advanced directives healthcare proxy decision-making falls to the patient's history adult children. Power of civil attorney in chart, which does not include medical decision maker. * GOALS OF CARE: As per family, goals of treatment remain unchanged. Continue of aggressive care to include CPR, intubation and mechanical ventilation if medically indicated. Family hoping for clinical improvement with the goal of returning patient to long-term facility. Patient is a long-term resident at [facility], likely to discharge/return to facility today. * SYMPTOMS: == Debility, secondary to CVA in 2011 with right-sided hemiparesis, bedbound state, recent prolonged hospitalization. Likely to continue worsening. == Shortness of breath, history of COPD, recent hospitalization complicated by acute respiratory failure requiring intubation and mechanical ventilation. Currently tolerating O2 via nasal cannula. * Palliative care contact information has been provided to patient's daughter. * Palliative care will continue to follow-up as needed for further clarifications of goals of care as the clinical course evolves. . Time Spent Total Floor Time (mins): 38 (Total time to include review of medical records, physical exam, telephone conversation with patient's daughter Cat and case discussion with case finishing machine adjuster.) >50% Counseling/Coord of Care: Yes Attestation To help prompt me to consider important information that might be impacting today's encounter and assessment, information from prior notes written by myself or my colleagues may have been "brought forward" into today's note. My signature on this note, however, is an attestation that I personally performed the exam, history, and/or decision-making noted today, and, unless otherwise indicated, the interactions with patient, family, and staff as well as the review of records all occurred today. I also attest that the listed assessment and stated plan reflect my best clinical judgment today based on the combination of historical information, prior notes, and today's exam/ interactions. When time spent is documented, it refers only to time spent today by the signer, or if indicated, combined time spent today by collaborating physician/nurse practitioner. Jessie Bach Jul 22, 2016 11:12
[2016-07-22 12:00] VITALS: BP 134/87; PULSE 87; RESP 22; TEMP 98.8; O2SAT 96
[2016-07-22] MEDS ORDERED: LOPERAMIDE HCL SOLN 2 MG/10 ML UDC PO PRN (12:00)
[2016-07-22 13:18] VITALS: PULSE 102
--- NOTE | 2016-07-22 13:49 | HHI.PR ---
Subjective Subjective Remarks non verbal abd. less distended no vomiting reported no diarrhea no fever refusing IV access Review of Systems Constitutional Constitutional: Fatigue (chronic), Weakness (chronic) Constitutional Remarks unable to obtain ROS GI/Abdomen GI/Abdominal Exam: Diarrhea (has rectal kitchen several times this adm.) Musculoskeletal MS: Weakness, Stiffness Neurologic Neurologic: Lethargic Vitals/Results Intake & Output 07/21/16 07/21/16 07/22/16 15:00 23:00 07:00 Intake Total 468 ml Balance 468 ml Tube Feeding 468 ml # Voids 4 1 # Bowel Movements 2 1 Vital Signs Vital Signs Date Time Temp Pulse Resp B/P Pulse Ox O2 Delivery O2 Flow Rate FiO2 07/22/16 13:18 102 07/22/16 12:00 98.8 87 22 134/87 96 07/22/16 08:00 99.5 102 22 147/68 97 07/22/16 04:00 99.0 67 14 109/67 93 07/22/16 00:00 97.4 95 20 119/56 96 07/21/16 20:00 Nasal Cannula 2.00 07/21/16 20:00 106 07/21/16 20:00 99.4 109 20 130/73 96 07/21/16 16:00 100.2 105 21 152/67 95 07/21/16 16:00 Nasal Cannula 2.00 07/21/16 13:50 Nasal Cannula 2.00 CBC/BMP: 07/21/16 0005 Physical Exam General General Appearance: No Acute Distress Eyes Eye Exam: Pupils Equal, Pupils Reactive Ears & Nose Ears & Nose Exam: Nasal Mucosa [place] Throat Throat Exam: Oral Mucosa [place] & Moist (pale) Neck Neck Exam: Neck Supple, Trachea Midline Pulmonary Resp Exam: Decreased Bases, Diminished Breath Sounds, Poor Inspiratory Effort Resp Remarks faint ronchi upper lobes Cardiology CV Exam: Regular Gastrointestinal/Abdomen GI Exam: Soft, Bowel Sounds Present, Positive Bowel Movement, Distended, Bowel Sounds Hyperactive GI Remarks Peg tube Musculoskeletal MS Exam: Joints Intact, Atrophy Integumentary Skin Exam: Warm, Dry Extremeties Extremities Exam: Pedal Pulses Palpable, Trace Edema Neurologic Neuro Exam: Awake Neuro Remarks right hemiplegia VTE Prophylaxis VTE Prophylaxis Device: SCDs VTE Prophylaxis Meds: Heparin PUD Prophylasis PUD Remarks pepcid Assessment/Plan Assessment/Plan 1. Shortness of breath,low air volumes, tachypnea and tachycardia, etiology unclear, recurrent infection, possible early pneumonia, probable aspiration. 2. elevated lipase, possible pancreatitis. This could be causing pain resulting in tachycardia and tachypnea. 3. Respiratory alkalosis. 4. Hypertension., 5. History of dense CVA with right hemiplegia. 6. History of liver disease. 7. History of depression. 8. History of seizure disorder, recurrent seizures 9. Recent respiratory failure and pneumonia. 10.Poor performance status. 11.Severe protein calorie malnutrition. 12.Chronic kidney disease, stage II. 13.History of breast cancer. 14. Encephalopathy 15. Hypernatremia 16. Thrombocytopenia 17. Abd distension, ? ileus 18. Anemia, gastroccult + 19. Right arm thrombus basilic vein PLAN sodium stable off IVF tolerating tube feeding okay was having diarrhea, second stool neg. for cdiff Immodium schedule, change to PRN blood c/s +ve C albican urine c/s +ve C albicans ID input appreciated cont IV diflucan cdiff negative repeat uc 07/15, c. albicans kitchen has been dc continue Diflucan one more day oxygen PRN Duonebs PRN Appreciate GI input Not a candidate for endoscopic ultrasound Recommend conservative treatment S/P EGD 07/17-Duodenitis, gastritis,esophagitis distal esophagus/Retroflexed views revealed a hiatal hernia Noted anemic, hemoccult 07/05 negative gastroccult + low iron stores HH 7.2/.2--S/P 1 unit PRBC 07/13 hh stable continue Keppra, Dilantin Appreciate neuro input seizure precautions EEG shows mild to moderate encephalopathy. no active seizures. vascular team noted poss. thrombus right arm US right arm-thrombus basilic vein Continue Coumadin pharmacy to dose INR daily PPI for GI prophylaxis Heparin for DVT prophylaxis Appreciate palliative care input family request full aggressive care for now Poor prognosis Discharge to SNF today F/U PCP Diet-tube feeding Activity-bedrest overall prog poor, pt. likely to return to hospital due to comorbidities, bed bound status D/W RN D/W Dr. Pittman D/W CM This patient was seen by myself and Dr. Pittman, this note is written on his behalf Discharge Minutes: 45 Yessy Nicole Jul 22, 2016 13:49
--- NOTE | 2016-07-22 13:50 | HHI.DS ---
Discharge Summary Admission Date Jul 08, 2016 at 20:02 Discharge Date: Jul 22, 2016 Admitting Diagnosis Sepsis; respiratory distress; tachycardia; uti (1) Sepsis (2) Hypernatremia (3) Shortness of breath (4) Respiratory distress (5) Debility (6) Tachycardia with heart rate 121-140 beats per minute (7) UTI (urinary tract infection) (8) Atrial fibrillation with rapid ventricular response CBC/BMP: 07/21/16 0005 Significant Findings Laboratory Tests Test 07/20/16 07/21/16 07/21/16 05:55 00:05 10:45 Prothrombin Time 11.9 SEC 12.4 SEC (9.8-11.6) (9.8-11.6) Chloride Level 108 MEQ/L (98-107) Estimat Glomerular Filtration 74 ML/MIN (>89) Rate Random Glucose 116 MG/DL (74-106) Calcium Level 7.9 MG/DL (8.5-10.1) Hospital Course This is an unfortunate 70-year-old -[place] female who was has a recent hospitalization for respiratory failure, pneumonia and possible COPD exacerbation. 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 She is essentially nonverbal, has a history of depression and COPD. She apparently developed some discomfort in the upper abdomen/lower chest along with shortness of breath and she was sent to the ER for evaluation. The history is very limited as she is not able to provide any meaningful information. She tries to mouth words and shakes and nods her head. Upon arrival she was noted to be somewhat tachycardic initial heart rate was in the 160s. She was diagnosed with PSVT, was given IV Cardizem along with IV fluids. CT of the chest was performed to rule out pulmonary embolism and that study was negative for PE, showed bibasilar atelectasis, somewhat limited due to motion artifact. Recommendation was given by the ER physician for the patient to be admitted to the hospital. LABORATORY DATA White count 14.4, hemoglobin 9.9, hematocrit 31.0, platelet count 111. Repeat CBC today shows white count 12.6, platelet count 95, hemoglobin 8.5, hematocrit 6.5. 57% neutrophils, and 8% bands. Sodium 139, potassium 4.3, chloride 107, bicarb 24, BUN 19, creatinine 1.17, glucose 130, calcium 8.1. LFTs show ALT 1000, AST 73, ALK 52, total protein 7.4, albumin 2.0, lipase 593. Repeat BUN 20, creatinine 1.08 today. PT 11.2, INR 1.0, PTT 30.3. ABG shows pH 7.26, PCO2 52, PO2 30, O2 sat 41%. This is a venous blood gas on four liters nasal cannula, so oxygenation is unreliable. Urinalysis: Urine pH 5.5, specific gravity 1.014, leukocyte esterase large, wbc's 21, bacteria few. C. difficile testing was negative. Influenza A and B antigens were negative. Blood cultures were taken. IMAGING DATA Chest x-ray showed atelectasis at the left base versus early consolidation. CTA of the chest was done, a limited study, but did not reveal any evidence of pulmonary embolism/in the main pulmonary arteries. Mild bibasilar infiltrates were seen. CT scan of the abdomen and pelvis showed bibasilar atelectasis, stable cystic mass involving the proximal body of the pancreas not significantly changed. Small amount of free fluid in the pelvis. Hepatocellular disease of the liver. No new changes are seen. Admitted for: 1. Shortness of breath,low air volumes, tachypnea and tachycardia, etiology unclear, recurrent infection, possible early pneumonia, probable aspiration. 2. elevated lipase, possible pancreatitis. This could be causing pain resulting in tachycardia and tachypnea. 3. Respiratory alkalosis. 4. Hypertension., 5. History of dense CVA with right hemiplegia. 6. History of liver disease. 7. History of depression. 8. History of seizure disorder, recurrent seizures 9. Recent respiratory failure and pneumonia. 10.Poor performance status. 11.Severe protein calorie malnutrition. 12.Chronic kidney disease, stage II. 13.History of breast cancer. 14. Encephalopathy 15. Hypernatremia 16. Thrombocytopenia 17. Abd distension, ? ileus 18. Anemia, gastroccult + 19. Right arm thrombus basilic vein During the course of the hospitalization the following took place: Pt. admitted, put on IVF. BNP checked to rule out CHF. Clinically she was not showing signs of congestive heart failure. Repeated troponin to exclude angina or UT. Controlled blood pressure. GI consulted Continued some home medications, including Keppra Seizure precautions Palliative care consulted. Had a prolonged hospitalization, complicated by anemia, ongoing candiduria, development of right arm DVT. Had ongoing diarrhea, 2 stools checked-negative cdiff. Immodium was made schedule, then changed to PRN Was hypernatremic, fluids changed and adjusted, went back to normal. Had recurrent UTI kitchen dc ID consulted cultures done: blood c/s +ve C albican urine c/s +ve C albicans Put on IV diflucan initially repeat uc 07/15, c. albicans Final ID recommendations obtained Pulmonary stabilized oxygen PRN Duonebs PRN Put on CCB and BB for elevated HR, improved Initially required Cardizem gtt Appreciated GI input, evaluated for pancreatitis. Not a candidate for endoscopic ultrasound Recommended conservative treatment reconsulted GI for anemia. hemoccult 07/05 negative gastroccult + low iron stores were found HH 7.2/.2--S/P 1 unit PRBC 07/13 S/P EGD 07/17-Duodenitis, gastritis,esophagitis distal esophagus/Retroflexed views revealed a hiatal hernia HH stabilized continue Kemildredra, Dilantin Appreciate neuro input seizure precautions EEG shows mild to moderate encephalopathy. no active seizures. vascular team noted poss. thrombus right arm US right arm-thrombus basilic vein Started on Coumadin pharmacy to dose INR daily PPI for GI prophylaxis Heparin for DVT prophylaxis Appreciated palliative care input, spoke to pt's daughter. Family requested full aggressive care Poor prognosis stabilized, clinically improved. Cleared for discharge. Discharged to SNF F/U PCP Diet-tube feeding Activity-bedrest overall prog poor, pt. likely to return to hospital due to comorbidities, bed bound status Pt Condition on Discharge: Stable Discharge Disposition: Discharge to SNF Discharge Instructions DIET: Follow Instructions for: On Tube Feeding Activities you can perform: Continue Bedrest Other Activity Instructions: pt eval and treatment at facility Follow up Referrals: Gastroenterology - 2 Weeks with Martha Sosa MD PCP Follow-up SNF/[facility]/HH with [facility] New Medications: Diltiazem (Cardizem) 30 Mg Tab 30 MG PO QID ELEVATED HEART RATE #120 TAB Fluconazole (Diflucan) 100 Mg Tab 100 MG PO DAILY@18 Infection #1 TAB Levetiracetam Liq (Keppra Liq) 500 Mg/5 Ml Soln 750 MG PO/TUBE Q12HR PRN Seizure Control Days 30 ML Phenytoin Liq (Phenytoin Liq) 125 Mg/5 Ml Mira 100 MG PO Q8H Seizure Control Days 30 BOTTLE Warfarin (Coumadin) 5 Mg Tab 5 MG PO DAILY@1600 THROMBUS PREVENTION #30 Ref 0 TAB Continued Medications: Acetaminophen (Tylenol) 325 Mg Tab 650 MG PO Q6H PRN PAIN SCALE 1 TO 10 Ref 0 TAB Clonidine (Clonidine) 0.1 Mg Tab 0.1 MG PO BID Blood Pressure Management #60 Ref 0 TAB Lisinopril (Lisinopril) 20 Mg Tab 20 MG PO DAILY #30 Ref 0 TAB Discontinued Medications: Levetiracetam Liq (Keppra Liq) 500 Mg/5 Ml Soln 250 MG PO BID Control Seizures #300 Ref 0 ML Levetiracetam Liq (Levetiracetam Liq) 500 Mg/5 Ml Soln 500 MG PO HS Control Seizures #300 Ref 0 ML Yessy NicoleP Jul 22, 2016 13:50
[2016-07-22] MEDS ORDERED: WARFARIN SOD 5 MG TAB PO SCH (16:00)
== END 2016-07-22 13:30 | DRG 871 ==
LOC: NEPE 15:44 → NEDA 20:02 → N04B 23:36
PROVIDERS: ADMIT Specialist; ATTEND Specialist
PROC: 0T9B70Z Drainage of Bladder with Drainage Device, Via Natural or Artificial Opening (ICD-10-PCS; principal; 2016-07-08)
PROC: 30233N1 Transfusion of Nonautologous Red Blood Cells into Peripheral Vein, Percutaneous Approach (ICD-10-PCS; 2016-07-13)
PROC: 0DB98ZX Excision of Duodenum, Via Natural or Artificial Opening Endoscopic, Diagnostic (ICD-10-PCS; 2016-07-17)
PROC: 0DB68ZX Excision of Stomach, Via Natural or Artificial Opening Endoscopic, Diagnostic (ICD-10-PCS; 2016-07-17)
PROC: 0DB38ZX Excision of Lower Esophagus, Via Natural or Artificial Opening Endoscopic, Diagnostic (ICD-10-PCS; 2016-07-17)
DX: A41.9 Sepsis, unspecified organism (principal); J69.0 Pneumonitis due to inhalation of food and vomit; E43 Unspecified severe protein-calorie malnutrition; G93.40 Encephalopathy, unspecified; E87.0 Hyperosmolality and hypernatremia; K85.90 Acute pancreatitis without necrosis or infection, unspecified; E87.3 Alkalosis; K86.3 Pseudocyst of pancreas; I69.351 Hemiplegia and hemiparesis following cerebral infarction affecting right dominant side; B37.49 Other urogenital candidiasis; J98.11 Atelectasis; R47.01 Aphasia; K56.7 Ileus, unspecified; I82.611 Acute embolism and thrombosis of superficial veins of right upper extremity; F03.90 Unspecified dementia, unspecified severity, without behavioral disturbance, psychotic disturbance, mood disturbance, and anxiety; I50.9 Heart failure, unspecified; I48.91 Unspecified atrial fibrillation; R13.12 Dysphagia, oropharyngeal phase; F32.9 Major depressive disorder, single episode, unspecified; F25.9 Schizoaffective disorder, unspecified; J45.909 Unspecified asthma, uncomplicated; F41.9 Anxiety disorder, unspecified; G47.00 Insomnia, unspecified; R06.82 Tachypnea, not elsewhere classified; G47.30 Sleep apnea, unspecified; N18.2 Chronic kidney disease, stage 2 (mild); I12.9 Hypertensive chronic kidney disease with stage 1 through stage 4 chronic kidney disease, or unspecified chronic kidney disease; Z51.5 Encounter for palliative care; K74.60 Unspecified cirrhosis of liver; M21.379 Foot drop, unspecified foot; J44.9 Chronic obstructive pulmonary disease, unspecified; K29.80 Duodenitis without bleeding; K44.9 Diaphragmatic hernia without obstruction or gangrene; K21.0 Gastro-esophageal reflux disease with esophagitis; D63.8 Anemia in other chronic diseases classified elsewhere; D50.9 Iron deficiency anemia, unspecified; D69.6 Thrombocytopenia, unspecified; K29.70 Gastritis, unspecified, without bleeding; Z87.19 Personal history of other diseases of the digestive system; Z93.1 Gastrostomy status; Z74.01 Bed confinement status; Z90.10 Acquired absence of unspecified breast and nipple; Z86.14 Personal history of Methicillin resistant Staphylococcus aureus infection; Z85.3 Personal history of malignant neoplasm of breast; Z79.01 Long term (current) use of anticoagulants
CPT/HCPCS: 36430; 51702; 71010; 71275; 74000; 74177; 76937; 80048; 80053; 80185; 80202; 81001; 82270; 82550; 82607; 82728; 82805; 83540; 83550; 83605; 83690; 83735; 83880; 84100; 84155; 84484; 85007; 85025; 85027; 85044; 85610; 85730; 86850; 86900; 86901; 86920; 87040; 87086; 87106; 87205; 87493; 87506; 87804; 88305; 88312; 93005; 93971; 94003; 94640; 95819; 96365; 96367; 96375; C9113; J0456; J0692; J1165; J1450; J1644; J1956; J2270; J2405; J2543; J2765; J3370; J3480; J7030; J7050; J7070; P9016; Q9967

== ENCOUNTER 2016-07-25 23:10 | Inpatient (IN) | payer MEDICARE, MEDICAID ==
[~2016-07-25] VITALS: Ht 165.1 cm; Wt 79.3 kg
[~2016-07-25 23:10] MED LIST changes: +COUM5TAB PO; +DIFL100T PO; +DILT31TA PO; -LEVE100S PO; -LEVE500S PO; +LEVE500S PO/TUBE; +PHEN125S PO
[2016-07-25 23:29] VITALS: BP 139/73; PULSE 116; RESP 24; TEMP 98.2; O2SAT 97
[2016-07-25] MEDS ORDERED: SODIUM CHLOR 0.9% 1000 ML INJ 1,000 ML IV ONE ×2 (23:47)
[2016-07-25] MEDS ORDERED: SODIUM CHLOR 0.9% 1000 ML INJ 700 ML IV ONE (23:47)
--- NOTE | 2016-07-25 23:49 | PD ---
HPI Chief Complaint: Medical Clearance Time Seen by Provider: 23:19 Travel History International Travel<30 days: No Contact w/Intl Traveler<30days: No Traveled to known affect area: No History of Present Illness HPI The patient 70 years old. She arrives from long-term [facility] where evidently she no longer wished to participate in the management of her chronic medical conditions there. She suffers from right hemiplegia with chronic oropharyngeal dysphasia. In essence she is nonverbal. At times she can make her needs known. The patient has a history of COPD tachycardia A. fib and has a gastric tube as well as a chronic urine Rosales. She was recently discharged following admission for sepsis due to pneumonia and UTI. Care provider from the long-term [facility] notes the patient was reportedly complaining of pain in the right arm. Additional historical information is limited to that provided by transfer paperwork from the SNF. No record of trauma reported. PFSH Past Medical History Asthma: Yes Anxiety: Yes Depression: Yes Cancer: Yes (LEFT BREAST) Cardiovascular Problems: Yes Congestive Heart Failure: Yes Cerebrovascular Accident: Yes (INTRACRANIAL BLEED) Diminished Hearing: No Gastrointestinal Disorders: Yes (DYSPHAGIA-- GI BLEED) GERD: Yes Genitourinary: Yes Hypertension: Yes Implanted Vascular Access Dvce: Yes Insomnia: Yes Neurologic: Yes (Intracerebral bleed/Dyshpagia, DEPRESSIVE DISORDER, DYSPHAGIA) Psychiatric: Yes (SCHIZOAFFECTIVE D/O) Respiratory: Yes (Pleural Effusion) Schizophrenia: Yes Seizures: Yes Sleep Apnea: Yes (INSOMNIA W/SLEEP APNEA) Triglycerides - High: Yes Menopausal: Yes : 3 Para: 3 Past Surgical History Abdominal Surgery: Yes (PREVIOUS PEG TUBE PLACEMENT) Body Medical Devices: PEG TUBE Pacemaker: No Other Surgery: Yes Social History Alcohol Use: No Tobacco Use: No Substance Use: No Allergies-Medications (Allergen,Severity, Reaction): Coded Allergies: Aspirin (Verified Allergy, Severe, 07/25/16) *MDRO Multi-Drug Resistant Organism (Verified Adverse Reaction, Unknown, Cleared 05/2016, 06/26/16) MRSA (wound & sputum) - 01/2012 *Cleared - MRSA PCR (nares) NEGATIVE on 06/18/16 & 06/25/16* Reported Meds & Prescriptions Reported Meds & Active Scripts Active Coumadin (Warfarin) 5 Mg Tab 5 Mg PO DAILY@1600 Keppra Liq (Levetiracetam) 500 Mg/5 Ml Soln 750 Mg PO/TUBE Q12HR PRN 30 Days Reported Cardizem (Diltiazem HCl) 30 Mg Tab 30 Mg PEG QID Ferrous Sulfate Liq (Ferrous Sulfate) 300 Mg/5 Ml Soln 325 Mg PEG DAILY Phenytoin Liq (Phenytoin) 125 Mg/5 Ml Mira 200 Mg PEG Q8HR Calcium 600 Mg Tab 600 Mg PEG DAILY Vitamin D3 (Cholecalciferol) 400 Unit Tab 400 Units PO BID Ativan (Lorazepam) 0.5 Mg Tab 0.5 Mg PEG BID PRN Tylenol (Acetaminophen) 325 Mg Tab 650 Mg PEG Q6H PRN Lisinopril 20 Mg Tab 20 Mg PEG DAILY Clonidine (Clonidine HCl) 0.1 Mg Tab 0.1 Mg PEG BID Review of Systems ROS Limitations: Clinical Condition, Altered Mental Status Physical Exam Narrative GENERAL: 70-year-old female, chronically ill in appearance, nonverbal SKIN: Approximate 3-4 cm sacral pressure wound HEAD: Atraumatic. Normocephalic. EYES: Pupils equal and round. No scleral icterus. No injection or drainage. ENT: No nasal bleeding or discharge. Mucous membranes pink and moist. NECK: Trachea midline. No JVD. CARDIOVASCULAR: Regular rate and rhythm. No murmur appreciated. RESPIRATORY: No tachypnea. Breath sounds clear. GASTROINTESTINAL: Abdomen is distended. There is a PEG tube. Site of insertion is clean. Diffuse tenderness present. Rosales catheter tubing noted MUSCULOSKELETAL: There is weakness of the right upper and lower extremity. Minimal edema about the right upper extremity. NEUROLOGICAL right-sided weakness present. Patient's nonverbal. She can say no and yes on occasion. PSYCHIATRIC: Unable to assess. Data Data Last Documented VS Vital Signs Date Time Temp Pulse Resp B/P Pulse Ox O2 Delivery O2 Flow Rate FiO2 07/26/16 01:00 118 20 144/73 99 Room Air 07/25/16 23:29 98.2 VS reviewed Orders Complete Blood Count With Diff (07/25/16 23:47) Comprehensive Metabolic Panel (07/25/16 23:47) Lactic Acid Sepsis Protocol (07/25/16 23:47) Lipase (07/25/16 23:47) Urinalysis - C+S If Indicated (07/25/16 23:47) Blood Culture (07/25/16 23:47) Chest, Single Ap (07/25/16 23:47) Ecg Monitoring (07/25/16 23:47) Iv Access Insert/Monitor (07/25/16 23:47) Oximetry (07/25/16 23:47) Oxygen Administration (07/25/16 23:47) Sodium Chlor 0.9% 1000 Ml Inj (Ns 1000 M (07/25/16 23:47) Sodium Chlor 0.9% 1000 Ml Inj (Ns 1000 M (07/25/16 23:47) Sodium Chlor 0.9% 1000 Ml Inj (Ns 1000 M (07/25/16 23:47) Iohexol 350 Inj (Omnipaque 350 Inj) (07/26/16 01:36) Ct Abd/Pel W Iv Contrast(Rout) (07/26/16 23:47) Prothrombin Time / Inr (Pt) (07/26/16 01:49) Cefepime Inj (Maxipime Inj) (07/26/16 02:00) Vancomycin Inj (Vancomycin Inj) (07/26/16 02:00) Admit Order (Ed Use Only) (07/26/16 02:25) Labs Laboratory Tests Test 07/26/16 07/26/16 07/26/16 07/26/16 00:27 00:38 01:10 02:19 Sodium Level 140 MEQ/L Potassium Level 4.5 MEQ/L Chloride Level 105 MEQ/L Carbon Dioxide Level 28.1 MEQ/L Anion Gap 7 MEQ/L Blood Urea Nitrogen 5 MG/DL Creatinine 0.74 MG/DL Estimat Glomerular Filtration 94 ML/MIN Rate Random Glucose 81 MG/DL Lactic Acid Level 1.0 mmol/L Calcium Level 8.5 MG/DL Total Bilirubin 0.5 MG/DL Aspartate Amino Transf 128 U/L (AST/SGOT) Alanine Aminotransferase 51 U/L (ALT/SGPT) Alkaline Phosphatase 191 U/L Total Protein 8.0 GM/DL Albumin 1.8 GM/DL Lipase 116 U/L Urine Color YELLOW Urine Turbidity CLEAR Urine pH 8.0 Urine Specific [place] 1.009 Urine Protein TRACE mg/dL Urine Glucose (UA) NEG mg/dL Urine Ketones NEG mg/dL Urine Occult Blood NEG Urine Nitrite NEG Urine Bilirubin NEG Urine Urobilinogen LESS THAN 2.0 MG/DL Urine Leukocyte Esterase NEG Urine RBC 31 /hpf Urine WBC 1 /hpf Microscopic Urinalysis Comment CATH-CULT NOT IND White Blood Count 7.6 TH/MM3 Red Blood Count 3.22 MIL/MM3 Hemoglobin 8.8 GM/DL Hematocrit 26.7 % Mean Corpuscular Volume 82.9 FL Mean Corpuscular Hemoglobin 27.2 PG Mean Corpuscular Hemoglobin 32.8 % Concent Red Cell Distribution Width 17.5 % Platelet Count 243 TH/MM3 Mean Platelet Volume 10.5 FL Neutrophils (%) (Auto) % Lymphocytes (%) (Auto) % Monocytes (%) (Auto) % Eosinophils (%) (Auto) % Basophils (%) (Auto) % Neutrophils # (Auto) TH/MM3 Lymphocytes # (Auto) TH/MM3 Monocytes # (Auto) TH/MM3 Eosinophils # (Auto) TH/MM3 Basophils # (Auto) TH/MM3 CBC Comment AUTO DIFF Differential Total Cells 100 Counted Neutrophils % (Manual) 74 % Lymphocytes % 13 % Monocytes % 9 % Eosinophils % 2 % Basophils % 1 % Neutrophils # (Manual) 5.7 TH/MM3 Metamyelocytes 1 % Differential Comment FINAL DIFF MANUAL Platelet Estimate NORMAL Platelet Morphology Comment NORMAL Ovalocytes 1+ Prothrombin Time 18.3 SEC Prothromb Time International 1.6 RATIO Ratio MDM Medical Decision Making Medical Screen Exam Complete: Yes Emergency Medical Condition: Yes Medical Record Reviewed: Yes Differential Diagnosis Arrhythmia, UTI, pneumonia, electron imbalance, renal failure, failure to thrive , anemia, polypharmacy Narrative Course CBC & BMP Diagram 07/26/16 00:27 07/26/16 01:10 AST 128 Alkaline phosphatase 191 Albumin 1.8 Lipase 116 Lactic acid 1.0 Urinalysis no UTI INR 1.4 Last 24 hours Impressions Chest X-Ray 07/25/16 9607 Signed Impressions: Service Date/Time: June 23:53 - CONCLUSION: Rotated and underinflated examination with persistent mild airspace opacity at the left lung base likely representing airspace consolidation. Kye Montes De Oca MD CT abdomen and pelvis reveals a small volume of free fluid of unknown etiology possibly portal hypertension, trace bilateral pleural effusions and atherosclerotic disease Patient is chronically tachycardic. She has multiple medical conditions and has difficulty expressing her complaints. It's unclear if the apparent airspace opacity in the left lung is new or old. We'll start antibiotics, cefepime and vancomycin. The patient received IV fluids. She'll be admitted for further monitoring. She received albuterol at around 3:20 AM. D/w Kye Wyman. Admission to Dr Pittman. Sepsis Criteria SIRS Criteria (2 or more): Heart rate over 90, RR > 20 or PaCO2 < 32 Diagnosis Primary Impression: PNA (pneumonia) Qualified Code: J18.9 - Pneumonia due to infectious organism, unspecified laterality, unspecified part of lung Admitting Information Admitting Physician Requests: Admit Molina Alvarado MD Jul 25, 2016 23:49
[2016-07-25] MEDS ORDERED: PHEN125S PEG (23:54)
[2016-07-25] MEDS ORDERED: VITD400 PO (23:54)
[2016-07-25] MEDS ORDERED: LORA-392 PEG (23:54)
[2016-07-25] MEDS ORDERED: CALC600T13 PEG (23:54)
[2016-07-25] MEDS ORDERED: DILT31TA PEG (23:54)
[2016-07-25] MEDS ORDERED: FERR300S PEG (23:54)
--- NOTE | 2016-07-26 00:25 | RADRPT ---
EXAM DATE/TIME: 07/25/2016 23:53 [facility] COMPARISON: CHEST SINGLE AP, July 08, 2016, 16:33. INDICATIONS : Chest pain. MEDICAL HISTORY : Hypertension. Congestive heart failure. Carcinoma, breast. Asthma. Dementia. SURGICAL HISTORY : Mastectomy, left. ENCOUNTER: Initial ACUITY: 1 day PAIN SCORE: Non-responsive. LOCATION: Bilateral chest FINDINGS: Rotated AP view of the chest demonstrates a normal-sized cardiac silhouette. Right chest wall Infuse- a-Port is present. Lungs are underinflated and there is airspace opacity at the left lung base. No pn eumothorax or pleural effusion is visualized. Bones and soft tissues demonstrate no acute finding. Cl ips overlie the left breast and left axilla. CONCLUSION: Rotated and underinflated examination with persistent mild airspace opacity at the left lung base lik [place] representing airspace consolidation. Kye Montes De Oca MD on July 26, 2016 at 0:22 Board Certified Radiologist. This report was verified electronically.
[2016-07-26 00:55] LABS: ALKALINE PHOSPHATASE 191 U/L (45-117); TOTAL BILIRUBIN ADULT 0.5 MG/DL (0.2-1.0)
[2016-07-26 00:57] LABS: ALT (GPT) 51 U/L (10-53); ANION GAP 7 MEQ/L (5-15); AST (GOT) 128 U/L (15-37); BICARBONATE 28.1 MEQ/L (21.0-32.0); BLOOD UREA NITROGEN 5 MG/DL (7-18); CHLORIDE 105 MEQ/L (98-107); GLOMERULAR FILTRATION RATE 94 ML/MIN (>89); POTASSIUM 4.5 MEQ/L (3.5-5.1); SODIUM (NA) 140 MEQ/L (136-145)
[2016-07-26 01:00] VITALS: BP 144/73; PULSE 118; RESP 20; O2SAT 99
[2016-07-26 01:17] LABS: BLOOD, URINE NEG (NEG); COMMENT (UR) CATH-CULT NOT IND; CULTURE IF INDICATED CATH CULTURE NOT IND; GLUCOSE,URINE NEG (NEG); KETONE, URINE NEG (NEG); NITRITE,URINE NEG (NEG); URINE COLOR YELLOW (YELLW/STRAW)
[2016-07-26 01:21] LABS: HEMATOCRIT 26.7 % (35.0-46.0); MEAN CELL VOLUME 82.9 FL (80.0-100.0); MEAN CORPUSCULAR HEMOGLOBIN 27.2 PG (27.0-34.0); MEAN CORPUSCULAR HGB CONC 32.8 % (32.0-36.0); PLATELET COUNT 243 TH/MM3 (150-450); RED BLOOD COUNT 3.22 MIL/MM3 (4.00-5.30); RED CELL DISTRIBUTION WIDTH 17.5 % (11.6-17.2); WHITE BLOOD COUNT 7.6 TH/MM3 (4.0-11.0)
[2016-07-26] MEDS ORDERED: IOHEXOL 350 MG/ML 10 ML VIAL (for RAD DIAG) IV ONE (01:36)
--- NOTE | 2016-07-26 01:53 | RADRPT ---
EXAM DATE/TIME: 07/26/2016 01:27 [facility] COMPARISON: CT ABDOMEN & PELVIS W CONTRAST, February 01, 2013, 6:37. CT ABDOMEN & PELVIS W CONTRAST, July 08 17, 18:29. INDICATIONS : Abdominal pain. IV CONTRAST: 80 cc Omnipaque 350 (iohexol) IV ORAL CONTRAST: No oral contrast ingested. RADIATION DOSE: 10.56 CTDIvol (mGy) MEDICAL HISTORY : Hypertension. Cardiovascular disease Cirrhosis. SURGICAL HISTORY : Peg tube. ENCOUNTER: Initial ACUITY: 1 day PAIN SCALE: Non-responsive LOCATION: abdomen TECHNIQUE: Volumetric scanning of the abdomen and pelvis was performed. Using automated exposure control and ad justment of the mA and/or kV according to patient size, radiation dose was kept as low as reasonably achievable to obtain optimal diagnostic quality images. FINDINGS: The examination quality is significantly degraded by respiratory motion artifact and artifact related to arm positioning. Clips are present within the left breast. LOWER LUNGS: There is a trace right and left pleural effusion. LIVER: The liver demonstrates a nodular contour indicative of cirrhosis. No liver lesion is appreciated. Th ere is no dilation of the biliary tree. No calcified gallstones. SPLEEN: Normal size without lesion. PANCREAS: There is a stable simple appearing cystic lesion abutting and likely arising from the body of the rivers creas. It measures 4.3 x 3.9 cm. KIDNEYS: Right kidney is smaller than the left. There is no mass, stone or hydronephrosis. ADRENAL GLANDS: Within normal limits. VASCULAR: There is no aortic aneurysm. There is severe atherosclerotic disease. BOWEL/MESENTERY: The stomach, small bowel, and colon demonstrate no acute abnormality. There is no free intraperitone al air. There is a small volume of free fluid in the abdomen and pelvis. Gastric tube is present. A s mall hiatal hernia is present. ABDOMINAL WALL: Within normal limits. RETROPERITONEUM: There is no lymphadenopathy. BLADDER: No wall thickening or mass. REPRODUCTIVE: Within normal limits. INGUINAL: There is no lymphadenopathy or hernia. MUSCULOSKELETAL: There are degenerative changes of the lumbar spine. CONCLUSION: 1. No acute finding is identified within the abdomen or pelvis. There are stable changes indicative o f cirrhosis. There is a small volume of free fluid in the abdomen and pelvis which may be related to portal hypertension. 2. Trace bilateral pleural effusions. 3. Severe atherosclerotic disease. Kye Montes De Oca MD on July 26, 2016 at 1:46 Board Certified Radiologist. This report was verified electronically.
[2016-07-26 01:57] LABS: HEMO FLAGS AUTO DIFF
[2016-07-26] MEDS ORDERED: VANCOMYCIN INJ 1,000 MG in SODIUM CHLOR 0.9% 250 ML INJ 250 ML IV ONE (02:00)
[2016-07-26] MEDS ORDERED: CEFEPIME INJ 2,000 MG in SODIUM CHLORIDE 0.9% INJ 100 ML IV ONE (02:00)
[2016-07-26 02:08] LABS: BASOPHILS 1 % (0-2); EOSINOPHILS 2 % (0-4); METAMYELOCYTES 1 % (0-1); NEUTROPHIL # MANUAL DIFF 5.7 TH/MM3 (1.8-7.7); OVALOCYTES 1+ (NORMAL); PLATELET ESTIMATE SMEAR NORMAL (NORMAL); PLATELET MORPHOLOGY NORMAL (NORMAL); POLYS (SEG NEUTROPHILS) 74 % (16-70); SCAN/DIFF FINAL DIFF MANUAL; WBC DIFF SAMPLE 100
[2016-07-26 02:40] LABS: INTERNATIONAL NORMALIZED RATIO 1.6 RATIO; PROTHROMBIN TIME - PATIENT 18.3 SEC (9.8-11.6)
[2016-07-26] MEDS: SODIUM CHLOR 0.9% 1000 ML INJ 1,000 ML IV SCH ×3 (02:50→22:50)
[2016-07-26] MEDS ORDERED: Vancomycin Consult Pharmacy 1 EA OTHER SCH (03:00)
[2016-07-26] MEDS ORDERED: ONDANSETRON HCL 4 MG/2 ML VIAL IVP PRN (03:00)
[2016-07-26] MEDS ORDERED: BISACODYL 10 MG SUPP RECTAL PRN (03:00)
[2016-07-26] MEDS ORDERED: SENNOSIDES 8.6 MG TAB PO PRN (03:00)
[2016-07-26] MEDS ORDERED: ACETAMINOPHEN 325 MG TAB PO PRN (03:00)
[2016-07-26] MEDS ORDERED: SODIUM CHLORIDE 0.9% FLUSH 10 ML FLUSH IV FLUSH PRN (03:00)
[2016-07-26] MEDS ORDERED: RESP: ALBUTEROL 1.25 MG/3 ML NEB (PRN) NEB (03:00)
[2016-07-26] MEDS ORDERED: NALOXONE HCL 0.4 MG/ML AMP IV PRN (03:00)
[2016-07-26] MEDS ORDERED: HYDROmorphone HCL PF 1 MG/ML VIAL IV PUSH ONE (03:30)
[2016-07-26 03:53] VITALS: BP 174/89; PULSE 114; RESP 18; O2SAT 95
[2016-07-26] MEDS ORDERED: LORazepam 0.5 MG TAB PEG PRN (07:45)
[2016-07-26] MEDS ORDERED: levETIRAcetam 500 MG/5 ML UDC G-TUBE PRN (07:45)
[2016-07-26 07:53] VITALS: BP 177/80; PULSE 121; RESP 31; TEMP 98.4; O2SAT 95
--- NOTE | 2016-07-26 09:17 | MH ---
cc: MONI PITTMAN DATE OF ADMISSION: 07/26/2016 DATE OF : 1945 TRAVEL IN THE LAST 30 DAYS None. REASON FOR ADMISSION Failure to thrive. HISTORY OF PRESENT ILLNESS This is an unfortunate 70-year-old black female who has recently been discharged from [facility] for sepsis, pneumonia and UTI. The patient has other medical co-morbidities and recently has had a PEG placed in for her nourishment. She is currently unable to swallow and she suffers from altered mental status at times in the past. Currently the patient is alert, responsive to simple verbal commands. She is giving short but appropriate answers and after several questions she states that she does not want to live like this anymore. The patient denies any current diarrhea. No constipation. She does suffer from right hemiplegia and chronic dysphagia and aphasia. PAST MEDICAL HISTORY 1. Asthma. 2. COPD. 3. Breast cancer. 4. Intracranial bleed. 5. CVA. 6. GI bleed. 7. GERD. 8. Insomnia. 9. Depressive disorder. 10.Schizophrenia. 11.Pleural effusions. 12.Hyperlipidemia. All this information is being gathered from the record. PAST SURGICAL HISTORY Recent PEG tube placement. ALLERGIES 1. MULTIDRUG RESISTANT ORGANISMS. 2. ASPIRIN. MEDICATIONS Reported medications according to the record: 1. Cardizem. 2. Ferrous sulfate. 3. Phenytoin. 4. Calcium. 5. Vitamin-D. 6. Ativan. 7. Tylenol. 8. Lisinopril. 9. Clonidine. SOCIAL HISTORY The patient lives in a assisted facility. REVIEW OF SYSTEMS Minimal system review secondary to patient's lack of speech. Positives do include her failure to thrive. Otherwise other systems are negative or unremarkable. PHYSICAL EXAMINATION VITAL SIGNS: Temperature 98.4, pulse labile between 114 and 121, respirations labile between 20 and 31, blood pressure initial on ER admit 139/73, currently 177/80. O2 sat 95 on room air. GENERAL: A 70-year-old female who appears chronically ill, answers simple questions with one or two words. Any other conversation is garbled. SKIN: Positive for sacral pressure wound. HEENT: Atraumatic, normocephalic. Positive for facial drooping. Mucous membranes are pale pink and moist. NECK: Supple. CARDIOVASCULAR: S1, S2, tachycardic rhythm. PULMONARY: Low volumes. Some diminished breath sounds in her bases secondary to her low volumes. Tachypneic respirations off and on, labile. ABDOMEN: Round, taut. PEG tube present, no erythema. Positive for facial grimace with some tactile and light palpation. : Rosales catheter in. EXTREMITIES: Weakness noted throughout her extremities. No edema in her lower extremities. Right side weaker than the left side. NEUROLOGIC: Currently alert, appears appropriately answering yes or no simple questions. PSYCHIATRIC: Affect is flat. LABORATORY WBC count 7.6, RBC 3.22, hemoglobin 8.8, hematocrit 26.7, platelet count 243. 1+ ovalocytes. PT and INR 1.6. Chemistry: Sodium 140, potassium 4.5, chloride 105, carbon dioxide 28.1, anion gap 7, BUN 5, creatinine 0.74, lactic acid 1, AST 128, ALT 51, alkaline phosphatase 191, total protein 8, albumin 1.8, lipase 116. Urine is yellow, clear, pH 8, specific gravity 1.009, trace protein. Glucose, ketones, occult blood, nitrites, bilirubin and leukocyte esterase are negative. No culture is indicated. IMAGING Abdomen and pelvis CT: No acute findings are identified. Stable changes indicative of cirrhosis. There is a small volume of free fluid in the abdomen and pelvis which may be related to portal hypertension. Trace bilateral pleural effusions. Severe atherosclerotic heart disease. Chest x-ray: Rotated and under-inflated exam with persistent mild airspace opacity in the left lung, possibly representing airspace consolidation. ASSESSMENT 1. Failure to thrive. 2. Tachycardia. 3. Severe debility. 4. Dyspnea with respiratory distress. 5. Possible pneumonia. 6. History of CVA. 7. Anemia. PLAN Admit. Will monitor her vital signs q.4h. Reconcile her medications. She will be currently admitted to inpatient status. Will give her gentle hydration. In the emergency room she received and vancomycin x1. She currently has been placed on cefepime q.8h. IV. Coumadin management with the pharmacy to assist. Will re-consult Palliative Care. The patient is alert and appears to be giving appropriate answers related to her chronic medical conditions. According to the record the patient had told the assisted facility where she lives that she no longer wished to participate in the management of her chronic medical conditions. We will follow-up for her goals of care, especially since the patient is currently alert and answering questions on her own. Currently the patient is full code, full aggressive care, and we will follow. Dictated by: AMERICA Cabello Moni Pittman MD JP/CECILE /8:15 AM /8:45 AM Patient seen and examined as above Chart reviewed Medication labs and radiological data reviewed Notes reviewed Plan of care discussed with AMERICA Discussed with RN Explained to patient patient is receptive and trying to talk MTDD
[2016-07-26] MEDS: cloNIDine HCL 0.1 MG TAB PEG SCH ×2 (09:30→23:07)
[2016-07-26] MEDS: LISINOPRIL 20 MG TAB PEG SCH (09:30)
[2016-07-26] MEDS: DILTIAZEM HCL 30 MG TAB PEG SCH ×4 (09:33→23:06)
[2016-07-26] MEDS: CHOLECALCIFEROL (VIT D3) 400 UNIT TAB PO SCH ×2 (09:34→23:06)
[2016-07-26] MEDS: FERROUS SULFATE 300 MG /5ML UDC PEG SCH (09:34)
[2016-07-26] MEDS: PHENYTOIN SUSP 100 MG/4 ML CUP PEG SCH ×3 (09:34→23:06)
[2016-07-26] MEDS: SODIUM CHLORIDE 0.9% FLUSH 10 ML FLUSH IV FLUSH SCH ×2 (09:35→23:05)
[2016-07-26 11:00] VITALS: BP 154/78; PULSE 110; RESP 20; O2SAT 95
--- NOTE | 2016-07-26 11:12 | HHI.HCPN ---
Reason for visit Patient known to palliative care services from recent hospitalization from to 07/22/16. Referral by Dr. Pittman for clarifications of goals of care given recent hospitalization, multiple comorbidities, bedbound/total care state for the past 5 years and patient's reported refusal of medical care. a. To assist with evaluation and management of symptoms including: debility and dysphagia. b. To assist medical decision maker(s) with: better understanding of current medical conditions; weighing benefits/burdens of medical treatment options; making medical treatment decisions. . Subjective/Interval History Reviewed recent prior hospitalization from 07/08/16 to 07/22/16. Patient was admitted for management of pneumonia, sepsis, UTI. She was discharged to her long-term facility on 07/22/16. At that time palliative care was consulted for clarifications of goals of care. Palliative care in contact with daughter Cat Childress, at that time family electing for continuation of aggressive care to include full CODE STATUS and return to her long-term facility. Previous prolonged hospitalization from 06/17/16 to 07/06/16 secondary to acute respiratory distress and urosepsis. At that time patient required intubation and mechanical ventilation. This is patient's third acute hospitalization within the last 45 days. As per ED documentation, [facility] from [facility] where it was reported her refusal to participated in further medical management. Patient endorsing pain in her right arm, chest x-ray showing bilateral airspace opacity at the left lung base likely representing airspace consolidation. Patient received IV fluids and was placed on antibiotics. CT of the abdomen and pelvis reveals a small volume of free fluid of unknown etiology, likely secondary to portal hypertension. Also showing trace bilateral pleural effusions. Laboratory showing WBC 7.6, Hgb 8.8, platelet count 243. Sodium 140 , potassium 4.5, BUN/creatinine 5/0.74. Liver enzymes elevated, AST 128, alkaline phosphatase 191. Albumin 1.8. UA negative for nitrates or leukocytes. Blood cultures pending. Patient seen in emergency room. She was laying in in bed in no acute distress. Awake, slurred speech with mostly unintelligible words. He was able to tell me her name, but unable to take me place or reason why she was at the hospital. Patient told me that she is 42 years old. Tracking with eyes but not fully attentive or following conversation. Repetitive rolling her eyes, verbalizing "go home" "go back" and "no" when approached. Not following commands. Increased work of breathing with anxiety at times. Incontinent of bowel. Answered "yes" when asked about pain, however, she was unable to elaborate on complaint. Case discussed with bedside RN. . Family/friend interactions Met with patient's daughter Cat at bedside. Reviewed patient's past medical history to include CVA in 2011 leading to bedbound/total care state - resident of long-term facility. Reviewed recent hospitalizations and events leading to this current hospitalization. Reviewed likely trajectory of illness to include continued decline, further complications and . Daughter tells me that within the last 2 days patient has been refusing care at the [facility] facility, daughter under the impression that all of these complications are secondary to this. Reviewed with daughter that given patient's bedbound state/functional status, multiple comorbidities, acute hospitalizations and complications -patient is not likely to improve. Reviewed CPR, intubation and mechanical ventilation given the above. Discussed treatment options to include continuation of aggressive care to include hospitalizations versus transitioning patient to comfort directed care with hospice. Daughter appropriately tearful, she tells me that family has elected for continuation of aggressive care to include hospitalizations as necessary, CPR, intubation and mechanical ventilation, with the understanding that patient's condition is likely to continue progressing, leading to . Daughter verbalized understanding. . Advance Directives Living Will: Never completed Health Care Surrogate: Never completed Durable Power of [employer] Admin: Copy in medical record Advance Directive Specifics Date completed: General power of contract attorney completed on August 22, 2010. . Health Care Surrogate(s): As per daughter, no living will or healthcare surrogate designation has been completed. As per [place] statute, all 3 of patient's children would be healthcare decision-maker's. . Documented care wishes: No living will has been completed. . Significant change in goals: Full code. Continue with current medical management. . Objective Vital Signs Date Time Temp Pulse Resp B/P Pulse Ox O2 Delivery O2 Flow Rate FiO2 07/26/16 07:53 98.4 121 31 177/80 95 Room Air 07/26/16 03:53 114 18 174/89 95 Room Air 07/26/16 01:00 118 20 144/73 99 Room Air 07/25/16 23:33 116 24 07/25/16 23:29 98.2 116 24 139/73 97 Physical Exam CONSTITUTIONAL/GENERAL: This is an elderly female laying in bed in no acute distress, appears older than stated age. TUBES/LINES/DRAINS: PIV's. SKIN: No jaundice, rashes, or lesions. No wounds seen anteriorly. Skin temperature appropriate. Not diaphoretic. HEAD: Atraumatic. Normocephalic. EYES: Pupils equal and round and reactive. No scleral icterus. No injection or drainage. ENT: Hearing appears grossly normal. Nose without bleeding or purulent drainage. Dry lips. NECK: Trachea midline. Supple. CARDIOVASCULAR: Irregular rate and rhythm without murmurs, gallops, or rubs. Peripheral pulses symmetric. RESPIRATORY/CHEST: Symmetric, unlabored respirations. Coarse breath sounds anteriorly. GASTROINTESTINAL: Abdomen soft, non-tender, nondistended. No guarding. Bowel sounds present. PEG tube in place, site clean. MSK: Muscle wasting noted. Bilateral foot drops. NEUROLOGICAL: Awake, slurred speech with mostly unintelligible words. He was able to tell me her name, but unable to take me place or reason why she was at the hospital. Patient told me that she is 42 years old. Tracking with eyes but not fully attentive or following conversation. Not following commands. PSYCHIATRIC: Unable to assess secondary to clinical condition. Appears of anxiety. . Diagnostic Tests Laboratory Laboratory Tests Test 07/26/16 07/26/16 07/26/16 07/26/16 00:27 00:38 01:10 02:19 Sodium Level 140 MEQ/L (136-145) Potassium Level 4.5 MEQ/L (3.5-5.1) Chloride Level 105 MEQ/L (98-107) Carbon Dioxide Level 28.1 MEQ/L (21.0-32.0) Anion Gap 7 MEQ/L (5-15) Blood Urea Nitrogen 5 MG/DL (7-18) Creatinine 0.74 MG/DL (0.50-1.00) Estimat Glomerular Filtration 94 ML/MIN (>89) Rate Random Glucose 81 MG/DL (74-106) Lactic Acid Level 1.0 mmol/L (0.4-2.0) Calcium Level 8.5 MG/DL (8.5-10.1) Total Bilirubin 0.5 MG/DL (0.2-1.0) Aspartate Amino Transf 128 U/L (15-37) (AST/SGOT) Alanine Aminotransferase 51 U/L (10-53) (ALT/SGPT) Alkaline Phosphatase 191 U/L (45-117) Total Protein 8.0 GM/DL (6.4-8.2) Albumin 1.8 GM/DL (3.4-5.0) Lipase 116 U/L (73-393) Urine Color YELLOW (YELLW/STRAW) Urine Turbidity CLEAR (CLEAR) Urine pH 8.0 (5.0-8.5) Urine Specific [place] 1.009 (1.002-1.035) Urine Protein TRACE mg/dL (NEG-TRACE) Urine Glucose (UA) NEG mg/dL (NEG) Urine Ketones NEG mg/dL (NEG) Urine Occult Blood NEG (NEG) Urine Nitrite NEG (NEG) Urine Bilirubin NEG (NEG) Urine Urobilinogen LESS THAN 2.0 MG/DL (LESS THAN 2.0) Urine Leukocyte Esterase NEG (NEG) Urine RBC 31 /hpf (0-3) Urine WBC 1 /hpf (0-5) Microscopic Urinalysis Comment CATH-CULT NOT IND White Blood Count 7.6 TH/MM3 (4.0-11.0) Red Blood Count 3.22 MIL/MM3 (4.00-5.30) Hemoglobin 8.8 GM/DL (11.6-15.3) Hematocrit 26.7 % (35.0-46.0) Mean Corpuscular Volume 82.9 FL (80.0-100.0) Mean Corpuscular Hemoglobin 27.2 PG (27.0-34.0) Mean Corpuscular Hemoglobin 32.8 % Concent (32.0-36.0) Red Cell Distribution Width 17.5 % (11.6-17.2) Platelet Count 243 TH/MM3 (150-450) Mean Platelet Volume 10.5 FL (7.0-11.0) Neutrophils (%) (Auto) % (16.0-70.0) Lymphocytes (%) (Auto) % (9.0-44.0) Monocytes (%) (Auto) % (0.0-8.0) Eosinophils (%) (Auto) % (0.0-4.0) Basophils (%) (Auto) % (0.0-2.0) Neutrophils # (Auto) TH/MM3 (1.8-7.7) Lymphocytes # (Auto) TH/MM3 (1.0-4.8) Monocytes # (Auto) TH/MM3 (0-0.9) Eosinophils # (Auto) TH/MM3 (0-0.4) Basophils # (Auto) TH/MM3 (0-0.2) CBC Comment AUTO DIFF Differential Total Cells 100 Counted Neutrophils % (Manual) 74 % (16-70) Lymphocytes % 13 % (9-44) Monocytes % 9 % (0-8) Eosinophils % 2 % (0-4) Basophils % 1 % (0-2) Neutrophils # (Manual) 5.7 TH/MM3 (1.8-7.7) Metamyelocytes 1 % (0-1) Differential Comment FINAL DIFF MANUAL Platelet Estimate NORMAL (NORMAL) Platelet Morphology Comment NORMAL (NORMAL) Ovalocytes 1+ (NORMAL) Prothrombin Time 18.3 SEC (9.8-11.6) Prothromb Time International 1.6 RATIO Ratio Result Diagram: 07/26/16 0110 07/26/16 0027 Microbiology Microbiology Date/Time Procedure Status Source Growth 07/26/16 00:10 Aerobic Blood Culture Received Blood Peripheral Pending 07/26/16 00:10 Anaerobic Blood Culture Received Blood Peripheral Pending 07/26/16 00:27 Aerobic Blood Culture Received Blood Peripheral Pending 07/26/16 00:27 Anaerobic Blood Culture Received Blood Peripheral Pending Imaging Last Impressions Abdomen/Pelvis CT 07/26/162346 Signed Impressions: Service Date/Time: Tuesday, July 26, 2016 01:27 - CONCLUSION: 1. No acute finding is identified within the abdomen or pelvis. There are stable changes indicative of cirrhosis. There is a small volume of free fluid in the abdomen and pelvis which may be related to portal hypertension. 2. Trace bilateral pleural effusions. 3. Severe atherosclerotic disease. Kye Montes De Oca MD Chest X-Ray 07/25/162346 Signed Impressions: Service Date/Time: June 23:53 - CONCLUSION: Rotated and underinflated examination with persistent mild airspace opacity at the left lung base likely representing airspace consolidation. Kye Montes De Oca MD Assessment and Plan Disease Oriented Problem List: (1) PNA (pneumonia) (2) Tachycardia with heart rate 121-140 beats per minute (3) CVA (cerebral vascular accident) Comment: CVA in 2012. Right-sided hemiparesis. Patient is bedbound/total care. Symptom Scale: (1) Debility 0-10 Scale: Unable to quantify Comment: CVA in 2012 with right-sided hemiparesis. Bedbound/total care. Profound physical deconditioning. Likely to worsen. (2) Dysphagia 0-10 Scale: Unable to quantify Comment: Chronic dysphagia secondary to CVA. PEG tube in place. Pertinent Non-Medical Issues Psychosocial: Patient is . Has 3 children. Resident of long-term facility. Spiritual: Lutheran. Legal: No living will completed. Ethical issues impacting care: No living will completed. . Important Contacts Daughter Cat Childress [phone]. Son Todd Childress . Prognosis Mrs. Childress is a 70-year-old female with a medical history significant of left MCA stroke with right-sided hemiparesis, COPD, schizoaffective disorder, dementia, history of of intracranial aneurysm bleed, hypertension, seizure disorder, liver cirrhosis who is a long-term resident at [facility] for the past 5 years. Patient presented to the ED on 07/25/16 after recent hospitalization from 07/08/16 to 07/22/16 secondary to sepsis, pneumonia and UTI. Recent prolonged hospitalization from 06/17/16 to 07/06/16 secondary to acute respiratory distress and urosepsis. At that time patient required intubation and mechanical ventilation. This hospitalization is her third hospitalization within the last 2 months. Patient is full care, bedbound with a PPS of 30%. Overall prognosis is poor for an improved quality of life given patient's age, bedbound state, neurological deficits, multiple comorbidities and acute events. Patient is a very high risk for further decline , complications and . . Code Status: Full Code Plan * CODE STATUS: Full code. Risks and limitations of CPR, intubation and mechanical ventilation discussed with Dr. Shelton. Family electing for continuation of full CODE STATUS. * HEALTHCARE DECISION-MAKING: Patient incapacitated for medical decision-making secondary to clinical condition -Patient is alert to self only. Slurred speech with mostly unintelligible words. Mostly nonverbal. Not following commands, unable to elaborate on complaints. -As per daughter, no living will or healthcare surrogate designation has been completed. Per [place] statute, in the absence of written advanced directives healthcare proxy decision-making falls to the patient's 3 adult children. Power of contract attorney in chart, which does not include medical decision maker. * GOALS OF CARE: Family electing for continuation of aggressive care to include full code/intubation and mechanical ventilation if necessary. As per daughter, goals of therapy is to allow time for clinical improvement with the goal of discharging back to long-term facility. Met with patient's daughter Cat at bedside. Reviewed patient's past medical history to include CVA in 2012 leading to bedbound/total care state -resident of long-term facility. Reviewed recent hospitalizations and events leading to this current hospitalization. Reviewed likely trajectory of illness to include continue decline, further complications and . Daughter tells me that within the last 2 days patient has been refusing care at the [facility], daughter under the impression that all of these complications are secondary to this. Reviewed with daughter that given patient's bedbound state/functional status, multiple comorbidities, acute hospitalizations and complications -patient is not likely to improve and will continue having further complications which will eventually lead to . Reviewed CPR, intubation and mechanical ventilation given the above. Discussed treatment options to include continuation of aggressive care versus transitioning patient to comfort-directed care with hospice. Daughter declining to set limitations of treatment at this time. Daughter was encouraged to further discuss goals of care with additional family members/2 siblings. Attempted to contact patient's son Todd, left message on voicemail. * HOSPICE: Patient definitely appropriate for hospice services, however, not in line with current goals of care. Current PPS 30%. * SYMPTOMS: == Debility, secondary to CVA in 2012 with right-sided hemiparesis, bedbound state, recent prolonged hospitalizations. Likely to continue worsening. == Dysphagia, chronic. Secondary to CVA. PEG tube in place. * Palliative care contact information has been provided to daughter. * Palliative care will continue to follow-up for further clarifications of goals of care as the clinical course evolves. . Time Spent Total Floor Time (mins): 48 (Total time to include review of medical records, physical exam, bedside conversation with patient's daughter, and case discussion with RN.) >50% Counseling/Coord of Care: Yes Attestation To help prompt me to consider important information that might be impacting today's encounter and assessment, information from prior notes written by myself or my colleagues may have been "brought forward" into today's note. My signature on this note, however, is an attestation that I personally performed the exam, history, and/or decision-making noted today, and, unless otherwise indicated, the interactions with patient, family, and staff as well as the review of records all occurred today. I also attest that the listed assessment and stated plan reflect my best clinical judgment today based on the combination of historical information, prior notes, and today's exam/ interactions. When time spent is documented, it refers only to time spent today by the signer, or if indicated, combined time spent today by collaborating physician/nurse practitioner. Jessie Bach Jul 26, 2016 11:12
[2016-07-26] MEDS: CEFEPIME INJ 1,000 MG in SODIUM CHLORIDE 0.9% INJ 100 ML IV SCH ×2 (12:35→18:03)
[2016-07-26] MEDS: WARFARIN SOD 5 MG TAB PO SCH (15:33)
[2016-07-26 16:06] VITALS: BP 188/84; PULSE 120; RESP 18; TEMP 99.6; O2SAT 93
--- NOTE | 2016-07-26 16:41 | EKG ---
Date Performed: 07/25/2016 Time Performed: 23:19:45 PTAGE: 70 years EKG: SINUS TACHYCARDIA NONSPECIFIC T-WAVE ABNORMALITY ABNORMAL RHYTHM ECG Compared to prior trac ing no significant change PREVIOUS TRACING : 07/08/2016 16.17 DOCTOR: Bren Morejon Interpretating Date/Time 07/26/2016 16:38:50
--- NOTE | 2016-07-26 16:42 | EKG ---
Date Performed: 07/26/2016 Time Performed: 08:10:32 PTAGE: 70 years EKG: ATRIAL FLUTTER/TACHYCARDIA WITH RAPID VENTRICULAR RESPONSE SEPTAL MYOCARDIAL INFARCTION ABN ORMAL ECG Compared to prior tracing no significant change PREVIOUS TRACING : 07/25/2016 23.19 DOCTOR: Bren Morejon Interpretating Date/Time 07/26/2016 16:39:10
[2016-07-26 19:12] VITALS: BP 186/84; PULSE 119; RESP 18; TEMP 98.4; O2SAT 97
[2016-07-26] MEDS: VANCOMYCIN INJ 1,250 MG in SODIUM CHLOR 0.9% 250 ML INJ 250 ML IV SCH (23:04)
[2016-07-27] MEDS: CEFEPIME INJ 1,000 MG in SODIUM CHLORIDE 0.9% INJ 100 ML IV SCH ×3 (03:21→17:11)
[2016-07-27 05:28] VITALS: BP 160/80; PULSE 116; RESP 19; TEMP 99; O2SAT 96
[2016-07-27] MEDS: PHENYTOIN SUSP 100 MG/4 ML CUP PEG SCH ×3 (05:34→21:13)
[2016-07-27 08:06] VITALS: BP 142/65; PULSE 103; RESP 22; TEMP 99.1; O2SAT 94
[2016-07-27] MEDS: SODIUM CHLOR 0.9% 1000 ML INJ 1,000 ML IV SCH (08:37)
[2016-07-27] MEDS: SODIUM CHLORIDE 0.9% FLUSH 10 ML FLUSH IV FLUSH SCH ×2 (08:37→21:00)
[2016-07-27] MEDS: BENEPROTEIN POWDER 1 PACK G-TUBE SCH ×3 (08:37→17:11)
[2016-07-27] MEDS: DILTIAZEM HCL 30 MG TAB PEG SCH ×4 (08:37→21:13)
[2016-07-27] MEDS: cloNIDine HCL 0.1 MG TAB PEG SCH ×2 (08:37→21:13)
[2016-07-27] MEDS: CALCIUM CARBONATE 1.25 GM (CA 500 MG) TAB PEG SCH (08:37)
[2016-07-27] MEDS: FERROUS SULFATE 300 MG /5ML UDC PEG SCH (08:38)
[2016-07-27] MEDS: CHOLECALCIFEROL (VIT D3) 400 UNIT TAB PO SCH ×2 (08:38→21:13)
[2016-07-27] MEDS: LISINOPRIL 20 MG TAB PEG SCH (08:38)
--- NOTE | 2016-07-27 08:45 | HHI.PR ---
Subjective Subjective Remarks awake, refusing lab work unable to obtain ROS BP elevated, no fever reported Review of Systems Constitutional Constitutional Remarks 12 point ROS unable to do Vitals/Results Vital Signs Vital Signs Date Time Temp Pulse Resp B/P Pulse Ox O2 Delivery O2 Flow Rate FiO2 07/27/16 05:28 99.0 116 19 160/80 96 07/26/16 23:53 Room Air 07/26/16 20:00 Room Air 07/26/16 19:12 98.4 119 18 186/84 97 07/26/16 16:06 99.6 120 18 188/84 93 07/26/16 11:00 110 20 154/78 95 Room Air CBC/BMP: 07/26/16 0110 07/26/16 0027 Physical Exam General General Appearance: Anxious, Obese Eyes Eye Exam: Pupils Equal, Pupils Reactive Ears & Nose Ears & Nose Exam: Nasal Mucosa [place] Throat Throat Exam: Oral Mucosa [place] & Moist Neck Neck Exam: Neck Supple, Trachea Midline Pulmonary Resp Exam: Decreased Bases Cardiology CV Exam: Regular Gastrointestinal/Abdomen GI Exam: Soft, Non-Tender, Bowel Sounds Present, Non-Distended GI Remarks peg tube with tube feeding Musculoskeletal MS Exam: Atrophy, Unable to Ambulate Integumentary Skin Exam: Warm, Dry Extremeties Extremities Exam: Pedal Pulses Palpable, Trace Edema Neurologic Neuro Exam: Awake Neuro Remarks left sided hemiplegia VTE Prophylaxis VTE Prophylaxis Meds: Coumadin Assessment/Plan Problem List: (1) Failure to thrive in adult (2) PNA (pneumonia) (3) Tachycardia with heart rate 121-140 beats per minute (4) Debility (5) Dysphagia (6) History of CVA with residual deficit (7) Anemia Assessment/Plan Continue with empiric antibiotics follow cultures, negative so far dec. IVF to KVO continue Coumadin follow INR INR 1.6 yesterday Pharmacy for dosing anemia, recent GI work up monitor Seizure precautions continue home meds Continue tube feedings BP elevated Clonidine PRN continue Lisinopril continue Cardizem appreciate Palliative care input, notes reviewed. They met with daughter, she and family are requesting continuation of aggressive care pt. refusing lab work, agitated will have nurse access [place] for lab draws poor prognosis, multiple admissions D/W RN D/W Dr. Pittman This patient was seen by myself and Dr. Pittman, this note is writen on his behalf. Problem Qualifiers (1) PNA (pneumonia): Qualified Code: J18.9 - Pneumonia due to infectious organism, unspecified laterality, unspecified part of lung (2) Dysphagia: Qualified Code: R13.10 - Dysphagia, unspecified type (3) Anemia: Qualified Code: D64.9 - Anemia, unspecified type Yessy Nicole Jul 27, 2016 08:45
[2016-07-27 09:30] LABS: PROTHROMBIN TIME - PATIENT 22.8 SEC (9.8-11.6)
[2016-07-27 12:26] VITALS: BP 140/70; PULSE 107; RESP 21; TEMP 98.9; O2SAT 97
[2016-07-27] MEDS: SODIUM CHLORIDE 0.9% FLUSH 10 ML FLUSH IVF PRN (15:09)
[2016-07-27 16:11] VITALS: BP 149/69; PULSE 110; RESP 21; TEMP 98.8; O2SAT 97
[2016-07-27] MEDS: WARFARIN SOD 5 MG TAB PO SCH (17:10)
[2016-07-27 20:00] VITALS: BP 157/78; PULSE 112; RESP 20; TEMP 98.7; O2SAT 96
[2016-07-27] MEDS: VANCOMYCIN INJ 1,250 MG in SODIUM CHLOR 0.9% 250 ML INJ 250 ML IV SCH (21:11)
[2016-07-28] VITALS: BP 168/74; PULSE 106; RESP 20; TEMP 99.2; O2SAT 94
[2016-07-28] MEDS: CEFEPIME INJ 1,000 MG in SODIUM CHLORIDE 0.9% INJ 100 ML IV SCH ×3 (02:20→17:18)
[2016-07-28 04:00] VITALS: BP 172/83; PULSE 111; RESP 20; TEMP 99.4; O2SAT 95
[2016-07-28] MEDS: PHENYTOIN SUSP 100 MG/4 ML CUP PEG SCH ×3 (05:46→21:15)
[2016-07-28 06:19] LABS: INTERNATIONAL NORMALIZED RATIO 1.9 RATIO; PROTHROMBIN TIME - PATIENT 21.4 SEC (9.8-11.6)
[2016-07-28] MEDS: cloNIDine HCL 0.1 MG TAB PEG SCH ×2 (08:25→21:18)
[2016-07-28] MEDS: CALCIUM CARBONATE 1.25 GM (CA 500 MG) TAB PEG SCH (08:25)
[2016-07-28] MEDS: CHOLECALCIFEROL (VIT D3) 400 UNIT TAB PO SCH ×2 (08:25→21:50)
[2016-07-28] MEDS: DILTIAZEM HCL 30 MG TAB PEG SCH ×4 (08:25→21:18)
[2016-07-28] MEDS: FERROUS SULFATE 300 MG /5ML UDC PEG SCH (08:25)
[2016-07-28] MEDS: LISINOPRIL 20 MG TAB PEG SCH (08:25)
[2016-07-28 08:26] VITALS: BP 159/76; PULSE 112; RESP 20; TEMP 97.4; O2SAT 98
[2016-07-28] MEDS: SODIUM CHLORIDE 0.9% FLUSH 10 ML FLUSH IV FLUSH SCH ×2 (08:26→21:44)
[2016-07-28] MEDS: SODIUM CHLOR 0.9% 1000 ML INJ 1,000 ML IV SCH (08:26)
[2016-07-28] MEDS: BENEPROTEIN POWDER 1 PACK G-TUBE SCH ×3 (08:26→17:18)
[2016-07-28] MEDS: SODIUM CHLORIDE 0.9% FLUSH 10 ML FLUSH IVF PRN (08:27)
--- NOTE | 2016-07-28 08:59 | HHI.PR ---
Subjective Subjective Remarks more awake, oriented to self answering simple yes/no questions has no complaint of pain when asked tolerating tube feeding well no fever Review of Systems Constitutional Constitutional Remarks 12 point ROS unable to do Vitals/Results Intake & Output 07/27/16 07/27/16 07/28/16 15:00 23:00 07:00 Intake Total 3145 ml 560 ml 560 ml Balance 3145 ml 560 ml 560 ml Intake IV Total 2406 ml 240 ml 240 ml Tube Feeding 739 ml 320 ml 320 ml # Voids 2 2 # Bowel Movements 1 1 Vital Signs Vital Signs Date Time Temp Pulse Resp B/P Pulse Ox O2 Delivery O2 Flow Rate FiO2 07/28/16 08:26 97.4 112 20 159/76 98 07/28/16 04:00 99.4 111 20 172/83 95 07/28/16 00:00 99.2 106 20 168/74 94 07/27/16 20:30 Room Air 07/27/16 20:00 98.7 112 20 157/78 96 07/27/16 16:11 98.8 110 21 149/69 97 07/27/16 12:26 98.9 107 21 140/70 97 CBC/BMP: 07/26/16 0110 07/28/16 0545 Lab Results Laboratory Tests Test 07/28/16 05:45 Prothrombin Time 21.4 SEC Prothromb Time International 1.9 RATIO Ratio Creatinine 0.70 MG/DL Estimat Glomerular Filtration 101 ML/MIN Rate Physical Exam General General Appearance: Well Developed, No Acute Distress, Obese Eyes Eye Exam: Pupils Equal, Pupils Reactive Ears & Nose Ears & Nose Exam: Nasal Mucosa [place] Th[place]at Throat Exam: Oral Mucosa [place] & Moist Neck Neck Exam: Neck Supple, Trachea Midline Pulmonary Resp Exam: Decreased Bases Cardiology CV Exam: Regular Gastrointestinal/Abdomen GI Exam: Soft, Non-Tender, Bowel Sounds Present, Non-Distended GI Remarks peg tube with tube feeding Musculoskeletal MS Exam: Atrophy, Unable to Ambulate Integumentary Skin Exam: Warm, Dry Extremeties Extremities Exam: Pedal Pulses Palpable, Trace Edema Neurologic Neuro Exam: Awake Neuro Remarks left sided hemiplegia VTE Prophylaxis VTE Prophylaxis Meds: Coumadin Assessment/Plan Problem List: (1) Failure to thrive in adult (2) PNA (pneumonia) (3) Tachycardia with heart rate 121-140 beats per minute (4) Debility (5) Dysphagia (6) History of CVA with residual deficit (7) Anemia Assessment/Plan Continue with empiric antibiotics follow cultures, negative so far IVF to KVO continue Coumadin follow INR INR 1.9 Pharmacy for dosing anemia, recent GI work up monitor Seizure precautions continue home meds Continue tube feedings BP better Clonidine PRN continue Lisinopril continue Cardizem appreciate Palliative care input, notes reviewed. They met with daughter, she and family are requesting continuation of aggressive care Port accessed, flush per protocol poor prognosis, multiple admissions overall stable, hopefully dc in 1-2 days D/W RN D/W Dr. Pittman This patient was seen by myself and Dr. Pittman, this note is writen on his behalf. Problem Qualifiers (1) PNA (pneumonia): Qualified Code: J18.9 - Pneumonia due to infectious organism, unspecified laterality, unspecified part of lung (2) Dysphagia: Qualified Code: R13.10 - Dysphagia, unspecified type (3) Anemia: Qualified Code: D64.9 - Anemia, unspecified type Yessy Nicole Jul 28, 2016 08:59
[2016-07-28 12:16] VITALS: BP 150/74; PULSE 105; RESP 22; TEMP 98.2; O2SAT 97
[2016-07-28 16:05] VITALS: BP 162/76; PULSE 111; RESP 22; TEMP 98.3; O2SAT 98
[2016-07-28] MEDS: WARFARIN SOD 5 MG TAB PO SCH (17:18)
[2016-07-28 20:00] VITALS: BP 162/77; PULSE 112; RESP 20; TEMP 97.9; O2SAT 95
[2016-07-28] MEDS ORDERED: PHARMACY ORDERED LAB ONE (20:45)
[2016-07-28] MEDS: VANCOMYCIN INJ 1,250 MG in SODIUM CHLOR 0.9% 250 ML INJ 250 ML IV SCH (21:44)
[2016-07-29] VITALS: BP 162/77; PULSE 107; RESP 20; TEMP 98.2; O2SAT 95
[2016-07-29] MEDS: CEFEPIME INJ 1,000 MG in SODIUM CHLORIDE 0.9% INJ 100 ML IV SCH ×3 (03:52→18:34)
[2016-07-29 04:00] VITALS: BP 175/78; PULSE 109; RESP 20; TEMP 98.5; O2SAT 98
[2016-07-29] MEDS: PHENYTOIN SUSP 100 MG/4 ML CUP PEG SCH ×3 (06:27→21:03)
[2016-07-29 07:26] LABS: INTERNATIONAL NORMALIZED RATIO 1.7 RATIO; PROTHROMBIN TIME - PATIENT 19.4 SEC (9.8-11.6)
[2016-07-29 08:06] VITALS: BP 160/76; PULSE 112; RESP 20; TEMP 98.8; O2SAT 96
[2016-07-29] MEDS: CHOLECALCIFEROL (VIT D3) 400 UNIT TAB PO SCH ×2 (08:23→21:03)
[2016-07-29] MEDS: cloNIDine HCL 0.1 MG TAB PEG SCH ×2 (08:23→21:03)
[2016-07-29] MEDS: FERROUS SULFATE 300 MG /5ML UDC PEG SCH (08:23)
[2016-07-29] MEDS: LISINOPRIL 20 MG TAB PEG SCH (08:23)
[2016-07-29] MEDS: DILTIAZEM HCL 30 MG TAB PEG SCH ×4 (08:23→21:03)
[2016-07-29] MEDS: CALCIUM CARBONATE 1.25 GM (CA 500 MG) TAB PEG SCH (08:29)
[2016-07-29] MEDS: BENEPROTEIN POWDER 1 PACK G-TUBE SCH ×3 (09:00→18:00)
[2016-07-29] MEDS: SODIUM CHLORIDE 0.9% FLUSH 10 ML FLUSH IV FLUSH SCH ×2 (09:00→21:00)
--- NOTE | 2016-07-29 11:42 | HHI.PR ---
Subjective Subjective Remarks non verbal most of the time, occasional word or response abd taut, grimmaces to palpation peg tube. no family present (Eugenia Cortez) Review of Systems Constitutional Constitutional: Weakness (old CVA) Constitutional Remarks 10 point ROS done, abd, taut, firm to touch, facial grimmace, , other sustems unchanged, BM X 2 , other systems negative. (Eugenia Cortez) GI/Abdomen GI/Abdominal Exam: Diarrhea, Abdominal Pain (to palpation, abd. taut) GI/Abdomen Remarks KUB nonspecific (Eugenia Cortez) Musculoskeletal MS: Weakness, Stiffness (Eugenia Cortez) Integumentary Skin: Wounds (monitor sacrum, buttocks) (Eugenia Cortez) Neurologic Neurologic: Lethargic (Eugenia Cortez) Psychiatric Psychiatric Remarks affect flat (Eugenia Cortez) Vitals/Results Intake & Output 07/28/16 07/28/16 07/29/16 15:00 23:00 07:00 Intake Total 1721 ml Balance 1721 ml Intake IV Total 1268 ml Tube Feeding 453 ml # Voids 2 4 # Bowel Movements 1 1 Vital Signs Vital Signs Date Time Temp Pulse Resp B/P Pulse Ox O2 Delivery O2 Flow Rate FiO2 07/29/16 04:00 98.5 109 20 175/78 98 07/29/16 00:00 98.2 107 20 162/77 95 07/28/16 20:00 97.9 112 20 162/77 95 07/28/16 19:30 Room Air 07/28/16 16:05 98.3 111 22 162/76 98 07/28/16 12:16 98.2 105 22 150/74 97 (Eugenia Cortez) CBC/BMP: 07/26/16 0110 07/28/16 0545 Lab Results Laboratory Tests Test 07/28/16 07/29/16 21:35 06:25 Vancomycin Level Trough 20.2 MCG/ML Prothrombin Time 19.4 SEC Prothromb Time International 1.7 RATIO Ratio Imaging Remarks Last Impressions Abdomen/Pelvis CT 07/26/16 4992 Signed Impressions: Service Date/Time: Tuesday, July 26, 2016 01:27 - CONCLUSION: 1. No acute finding is identified within the abdomen or pelvis. There are stable changes indicative of cirrhosis. There is a small volume of free fluid in the abdomen and pelvis which may be related to portal hypertension. 2. Trace bilateral pleural effusions. 3. Severe atherosclerotic disease. Kye Montes De Oca MD Chest X-Ray 07/25/162346 Signed Impressions: Service Date/Time: June 23:53 - CONCLUSION: Rotated and underinflated examination with persistent mild airspace opacity at the left lung base likely representing airspace consolidation. Kye Montes De Oca MD Current Medications Last Impressions Abdomen/Pelvis CT 07/26/162346 Signed Impressions: Service Date/Time: Tuesday, July 26, 2016 01:27 - CONCLUSION: 1. No acute finding is identified within the abdomen or pelvis. There are stable changes indicative of cirrhosis. There is a small volume of free fluid in the abdomen and pelvis which may be related to portal hypertension. 2. Trace bilateral pleural effusions. 3. Severe atherosclerotic disease. Kye Montes De Oca MD Chest X-Ray 07/25/162346 Signed Impressions: Service Date/Time: June 23:53 - CONCLUSION: Rotated and underinflated examination with persistent mild airspace opacity at the left lung base likely representing airspace consolidation. Kye Montes De Oca MD (Eugenia Cortez M. INFORMATION ANALYST) Physical Exam General General Appearance: Well Developed, No Acute Distress, Obese (Eugenia Cortez M. INFORMATION ANALYST) Eyes Eye Exam: Pupils Equal, Pupils Reactive (Mira Cortezan M. INFORMATION ANALYST) Ears & Nose Ears & Nose Exam: Nasal Mucosa [place] (Mira Cortezan M. INFORMATION ANALYST) Throat Throat Exam: Oral Mucosa [place] & Moist (DiegoEugenia M. INFORMATION ANALYST) Neck Neck Exam: Neck Supple, Trachea Midline (DiegoEugenia M. INFORMATION ANALYST) Pulmonary Resp Exam: Decreased Bases (DiegoEugenia M. INFORMATION ANALYST) Cardiology CV Exam: Regular (Mira Cortezan M. INFORMATION ANALYST) Gastrointestinal/Abdomen GI Exam: Soft (taut), Non-Tender (tender to palpation), Bowel Sounds Present, Non-Distended, Bowel Sounds Hypoactive GI Remarks Vital 1.5 40cc /hr <5cc residual patient to flush (Eugenia Cortez) Musculoskeletal MS Exam: Atrophy, Unable to Ambulate (Eugenia Cortez) Integumentary Skin Exam: Warm, Dry (Eugenia Cortez) Extremeties Extremities Exam: Pedal Pulses Palpable, Trace Edema (Eugenia Cortez) Neurologic Neuro Exam: Awake (Eugenia Cortez) VTE Prophylaxis VTE Prophylaxis Meds: Coumadin (Eugenia Cortez) Assessment/Plan Problem List: (1) Failure to thrive in adult (2) PNA (pneumonia) (3) Tachycardia with heart rate 121-140 beats per minute (4) Debility (5) Dysphagia (6) History of CVA with residual deficit (7) Anemia Assessment/Plan Assessment/Plan Continue with empiric antibiotics follow cultures, negative so far IVF to KVO continue Coumadin follow INR, 1.7 today Pharmacy for dosing anemia, recent GI work up monitor HH Seizure precautions continue home meds, no seizures seen Gastritis, vs illeus, nonspecific Abd. taut, tender to light palpation this am, feedings running at 40cc/hr, <5cc residual feedings off for now, KUB ordered. Spoke to nurseEugenia for plan of care this am. Eval for illeus, vs changes in KUB. KUB, nonspecific , restarted feedings and spoke to nurse. BP , sys between 150s and 170s, Clonidine PRN continue Lisinopril continue Cardizem appreciate Palliative care input, notes reviewed. They met with daughter, she and family are requesting continuation of aggressive care Port accessed, flush per protocol poor prognosis, multiple admissions, guarded. overall stable, hopefully dc today or tomorrow, CM involved for her dc planning. Will return when stable. (Eugenia Cortez) Assessment/Plan patient seen and examined KUB neg tube feeds restarted abdomen still distended monitor over night if tolerates tube feed and no acute issues, possibly discharge in am discussed with patient's nurse no family at bed side discussed with Eugenia CROSS (Marcela Bro MD) Problem Qualifiers (1) PNA (pneumonia): Qualified Code: J18.9 - Pneumonia due to infectious organism, unspecified laterality, unspecified part of lung (2) Dysphagia: Qualified Code: R13.10 - Dysphagia, unspecified type (3) Anemia: Qualified Code: D64.9 - Anemia, unspecified type Eugenia Cortez Jul 29, 2016 11:42 Marcela Bro MD Jul 29, 2016 15:37
[2016-07-29 12:06] VITALS: BP 148/70; PULSE 108; RESP 20; TEMP 98.9; O2SAT 96
--- NOTE | 2016-07-29 12:56 | RADRPT ---
EXAM DATE/TIME: 07/29/2016 11:59 [facility] COMPARISON: CT ABDOMEN & PELVIS W CONTRAST, July 26, 2016, 1:27. INDICATIONS : Distention. MEDICAL HISTORY : Hypertension. Cardiovascular disease, Cirrhosis. SURGICAL HISTORY : Peg tube. ENCOUNTER: Subsequent ACUITY: 2 weeks PAIN SCORE: Non-responsive. LOCATION: Entire abdomen. FINDINGS: The patient is severely rotated on the film. A gastrostomy tube is present. There is gas present in m ildly distended small bowel. Little or no colonic gas visualized. No suspicious calcifications. Regio nal skeleton is grossly intact. CONCLUSION: Nonspecific abdomen appearance. Gastrostomy noted Kye Gonzalez MD on July 29, 2016 at 12:52 Board Certified Radiologist. This report was verified electronically.
[2016-07-29 16:00] VITALS: BP 156/68; PULSE 108; RESP 20; TEMP 98; O2SAT 96
[2016-07-29] MEDS: WARFARIN SOD 5 MG TAB PO SCH (16:00)
[2016-07-29] MEDS ORDERED: WARFARIN SOD 1 MG TAB PO SCH (16:00)
--- NOTE | 2016-07-29 17:18 | HHI.HCPN ---
Reason for visit Patient known to palliative care services from recent hospitalization from to 07/22/16. Referral by Dr. Pittman for clarifications of goals of care given recent hospitalization, multiple comorbidities, bedbound/total care state for the past 5 years and patient's reported refusal of medical care. a. To assist with evaluation and management of symptoms including: debility and dysphagia. b. To assist medical decision maker(s) with: better understanding of current medical conditions; weighing benefits/burdens of medical treatment options; making medical treatment decisions. . Subjective/Interval History Reviewed recent prior hospitalization from 07/08/16 to 07/22/16. Patient was admitted for management of pneumonia, sepsis, UTI. She was discharged to her long-term facility on 07/22/16. At that time palliative care was consulted for clarifications of goals of care. Palliative care in contact with daughter Cat Childress, at that time family electing for continuation of aggressive care to include full CODE STATUS and return to her long-term facility. Previous prolonged hospitalization from 06/17/16 to 07/06/16 secondary to acute respiratory distress and urosepsis. At that time patient required intubation and mechanical ventilation. This is patient's third acute hospitalization within the last 45 days. As per ED documentation, patient arrived from [facility] facility where it was reported her refusal to participated in further medical management. Patient endorsing pain in her right arm, chest x-ray showing bilateral airspace opacity at the left lung base likely representing airspace consolidation. Patient received IV fluids and was placed on antibiotics. CT of the abdomen and pelvis reveals a small volume of free fluid of unknown etiology, likely secondary to portal hypertension. Also showing trace bilateral pleural effusions. Laboratory showing WBC 7.6, Hgb 8.8, platelet count 243. Sodium 140 , potassium 4.5, BUN/creatinine 5/0.74. Liver enzymes elevated, AST 128, alkaline phosphatase 191. Albumin 1.8. UA negative for nitrates or leukocytes. Blood cultures pending. Patient seen and assessed in room 1406. She is alert, responding to questions with short answers. Patient grimacing to gentle palpation of the abdomen, saying " Ouch, Ouch. No. Cover up, cover up." When asked to examine patient's lower extremities, the patient responds with a no and tells me to go away. No family is present. Discussed with patient's nurse. Per nursing, patient's tube feedings were temporarily placed on hold. KUB was nonspecific and feedings were subsequently restarted. Afebrile. No new lab work available. Patient remains on IV antibiotics. Plan to monitor patient overnight with possible discharge tomorrow. Spoke with patient's daughter. She again states she and her family are requesting continuation of aggressive care. . Family/friend interactions Spoke with patient's daughter. She again states she and her family are requesting continuation of aggressive care. . Advance Directives Living Will: Never completed Health Care Surrogate: Never completed Durable Power of Employee Service Officer: Copy in medical record Advance Directive Specifics Date completed: General power of attorney recruiter completed on August 22, 2010. . Health Care Surrogate(s): As per daughter, no living will or healthcare surrogate designation has been completed. As per [place] statute, all 3 of patient's children would be healthcare decision-maker's. . Documented care wishes: No living will has been completed. . Objective Vital Signs Date Time Temp Pulse Resp B/P Pulse Ox O2 Delivery O2 Flow Rate FiO2 07/29/16 12:06 98.9 108 20 148/70 96 07/29/16 08:06 98.8 112 20 160/76 96 07/29/16 07:15 Room Air 07/29/16 04:00 98.5 109 20 175/78 98 07/29/16 00:00 98.2 107 20 162/77 95 07/28/16 20:00 97.9 112 20 162/77 95 07/28/16 19:30 Room Air Intake & Output 07/29/16 07/29/16 07:00 19:00 # Voids 4 # Bowel Movements 1 . Physical Exam CONSTITUTIONAL/GENERAL: This is an elderly female laying in bed in no acute distress, appears older than stated age. TUBES/LINES/DRAINS: PIV's, PEG SKIN: No jaundice, rashes, or lesions. Skin temperature appropriate. Not diaphoretic. HEAD: Atraumatic. Normocephalic. EYES: Pupils equal and round and reactive. No scleral icterus. No injection or drainage. ENT: Hearing appears grossly normal. Nose without bleeding or purulent drainage. Dry lips. NECK: Trachea midline. Supple. CARDIOVASCULAR: Irregular rate and rhythm without murmurs, gallops, or rubs. Peripheral pulses symmetric. RESPIRATORY/CHEST: Symmetric, unlabored respirations. Coarse breath sounds anteriorly. GASTROINTESTINAL: Abdomen soft, non-tender, nondistended. No guarding. Bowel sounds present. PEG tube in place, site clean. MUSCULOSKELETAL: Muscle wasting noted. NEUROLOGICAL: Awake. Responds to questions with short answers. Speech at times is nonsensical. PSYCHIATRIC: Unable to assess secondary to clinical condition. Appears of anxiety, refusing parts of assessment . Diagnostic Tests Laboratory Laboratory Tests Test 07/27/16 07/28/16 07/28/16 07/29/16 08:28 05:45 21:35 06:25 Prothrombin Time 22.8 SEC 21.4 SEC 19.4 SEC (9.8-11.6) (9.8-11.6) (9.8-11.6) Prothromb Time International 2.0 RATIO 1.9 RATIO 1.7 RATIO Ratio Creatinine 0.77 MG/DL 0.70 MG/DL (0.50-1.00) (0.50-1.00) Estimat Glomerular Filtration 90 ML/MIN (>89) 101 ML/MIN Rate (>89) Vancomycin Level Trough 20.2 MCG/ML (5.0-10.0) . Result Diagram: 07/26/16 0110 07/28/16 0545 Assessment and Plan Disease Oriented Problem List: (1) PNA (pneumonia) (2) Tachycardia with heart rate 121-140 beats per minute (3) CVA (cerebral vascular accident) Comment: CVA in 2012. Right-sided hemiparesis. Patient is bedbound/total care. Symptom Scale: (1) Debility 0-10 Scale: Unable to quantify Comment: CVA in 2012 with right-sided hemiparesis. Bedbound/total care. Profound physical deconditioning. Likely to worsen. (2) Dysphagia 0-10 Scale: Unable to quantify Comment: Chronic dysphagia secondary to CVA. PEG tube in place. Pertinent Non-Medical Issues Psychosocial: Patient is . Has 3 children. Resident of long-term facility. Spiritual: [employer]. Legal: No living will completed. Ethical issues impacting care: No living will completed. . Important Contacts Daughter Cat Childress [phone]. Son Todd Childress . Prognosis Mrs. Childress is a 70-year-old female with a medical history significant of left MCA stroke with right-sided hemiparesis, COPD, schizoaffective disorder, dementia, history of of intracranial aneurysm bleed, hypertension, seizure disorder, liver cirrhosis who is a long-term resident at [facility] rehabilitation for the past 5 years. Patient presented to the ED on 07/25/16 after recent hospitalization from 07/08/16 to 07/22/16 secondary to sepsis, pneumonia and UTI. Recent prolonged hospitalization from 06/17/16 to 07/06/16 secondary to acute respiratory distress and urosepsis. At that time patient required intubation and mechanical ventilation. This hospitalization is her third hospitalization within the last 2 months. Patient is full care, bedbound with a PPS of 30%. Overall prognosis is poor for an improved quality of life given patient's age, bedbound state, neurological deficits, multiple comorbidities and acute events. Patient is a very high risk for further decline , complications and . . Code Status: Full Code Plan * CODE STATUS: Full code. Risks and limitations of CPR, intubation and mechanical ventilation discussed with Dr. Shelton. Family electing for continuation of full CODE STATUS. * HEALTHCARE DECISION-MAKING: Patient incapacitated for medical decision-making secondary to clinical condition -Patient is alert to self only. Slurred speech with mostly unintelligible words. Mostly nonverbal. Not following commands, unable to elaborate on complaints. -As per daughter, no living will or healthcare surrogate designation has been completed. Per [place] statute, in the absence of written advanced directives healthcare proxy decision-making falls to the patient's 3 adult children. Power of attorney recruiter in chart, which does not include medical decision maker. * GOALS OF CARE: Family electing for continuation of aggressive care to include full code/intubation and mechanical ventilation if necessary. * HOSPICE: Patient is clearly hospice appropriate. However, hospice is not in line with current goals of care. Current PPS 30%. * SYMPTOMS: == Debility, secondary to CVA in 2012 with right-sided hemiparesis, bedbound state, recent prolonged hospitalizations. Likely to continue worsening. == Dysphagia, chronic. Secondary to CVA. Patient remains NPO s/p PEG tube placement. * Palliative care will continue to follow-up for further clarifications of goals of care as the clinical course evolves. . Attestation To help prompt me to consider important information that might be impacting today's encounter and assessment, information from prior notes written by myself or my colleagues may have been "brought forward" into today's note. My signature on this note, however, is an attestation that I personally performed the exam, history, and/or decision-making noted today, and, unless otherwise indicated, the interactions with patient, family, and staff as well as the review of records all occurred today. I also attest that the listed assessment and stated plan reflect my best clinical judgment today based on the combination of historical information, prior notes, and today's exam/ interactions. When time spent is documented, it refers only to time spent today by the signer, or if indicated, combined time spent today by collaborating physician/nurse practitioner. . Cat Strong Jul 29, 2016 17:18 Attestation To help prompt me to consider important information that might be impacting today's encounter and assessment, information from prior notes written by myself or my colleagues may have been "brought forward" into today's note. My signature on this note, however, is an attestation that I personally performed the exam, history, and/or decision-making noted today, and, unless otherwise indicated, the interactions with patient, family, and staff as well as the review of records all occurred today. I also attest that the listed assessment and stated plan reflect my best clinical judgment today based on the combination of historical information, prior notes, and today's exam/ interactions. When time spent is documented, it refers only to time spent today by the signer, or if indicated, combined time spent today by collaborating physician/nurse practitioner. . Cat Strong Jul 29, 2016 17:18
[2016-07-29 20:00] VITALS: BP 189/81; PULSE 125; RESP 18; TEMP 98.7; O2SAT 97
[2016-07-29] MEDS ORDERED: VANCOMYCIN 1,000 MG/NS 250 ML IV SCH ×2 (21:00)
[2016-07-30] VITALS: BP 161/77; PULSE 121; RESP 18; TEMP 98.8; O2SAT 92
[2016-07-30] MEDS: CEFEPIME INJ 1,000 MG in SODIUM CHLORIDE 0.9% INJ 100 ML IV SCH ×2 (03:14→11:20)
[2016-07-30 04:00] VITALS: BP 160/71; PULSE 117; RESP 18; TEMP 98.3; O2SAT 95
[2016-07-30] MEDS: PHENYTOIN SUSP 100 MG/4 ML CUP PEG SCH ×2 (05:03→15:07)
[2016-07-30 06:03] LABS: INTERNATIONAL NORMALIZED RATIO 1.8 RATIO; PROTHROMBIN TIME - PATIENT 20.1 SEC (9.8-11.6)
[2016-07-30 08:00] VITALS: BP 169/81; PULSE 118; RESP 18; TEMP 98.5; O2SAT 99
--- NOTE | 2016-07-30 08:27 | HHI.PR ---
Subjective Subjective Remarks non verbal most of the time, occasional word or response abd taut, grimmaces to palpation peg tube. no family present (Eugenia Cortez) Review of Systems Constitutional Constitutional: Weakness (old CVA) Constitutional Remarks 10 point ROS done, abd, taut, to touch, facial grimmace, , other systems unchanged, , other systems negative. (Eugenia Cortez) GI/Abdomen GI/Abdominal Exam: Diarrhea, Abdominal Pain (to palpation, abd. taut) GI/Abdomen Remarks KUB nonspecific (Eugenia Cortez) Musculoskeletal MS: Weakness, Stiffness (Eugenia Cortez) Integumentary Skin: Wounds (monitor sacrum, buttocks) (Eugenia Cortez) Neurologic Neurologic: Lethargic (Eugenia Cortez) Psychiatric Psychiatric Remarks affect flat (Eugenia Cortez) Vitals/Results Intake & Output 07/29/16 07/29/16 07/30/16 15:00 23:00 07:00 Intake Total 0 ml 866 ml 611 ml Balance 0 ml 866 ml 611 ml Intake Oral 0 ml 0 ml 0 ml IV Total 490 ml 287 ml Tube Feeding 316 ml 264 ml Tube Irrigant 60 ml 60 ml # Voids 5 0 2 # Bowel Movements 2 0 2 Vital Signs Vital Signs Date Time Temp Pulse Resp B/P Pulse Ox O2 Delivery O2 Flow Rate FiO2 07/30/16 04:00 98.3 117 18 160/71 95 07/30/16 00:00 98.8 121 18 161/77 92 07/29/16 21:03 Room Air 07/29/16 20:00 98.7 125 18 189/81 97 07/29/16 16:00 98.0 108 20 156/68 96 07/29/16 12:06 98.9 108 20 148/70 96 (Eugenia Cortez) CBC/BMP: 07/26/16 0110 07/30/16 0520 Lab Results Laboratory Tests Test 07/30/16 05:20 Prothrombin Time 20.1 SEC Prothromb Time International 1.8 RATIO Ratio Creatinine 0.65 MG/DL Estimat Glomerular Filtration 110 ML/MIN Rate Imaging Remarks Last Impressions Abdomen X-Ray 07/29/16 0000 Signed Impressions: Service Date/Time: Friday, July 29, 2016 11:59 - CONCLUSION: Nonspecific abdomen appearance. Gastrostomy noted Kye Gonzalez MD Abdomen/Pelvis CT 07/26/16 1357 Signed Impressions: Service Date/Time: Tuesday, July 26, 2016 01:27 - CONCLUSION: 1. No acute finding is identified within the abdomen or pelvis. There are stable changes indicative of cirrhosis. There is a small volume of free fluid in the abdomen and pelvis which may be related to portal hypertension. 2. Trace bilateral pleural effusions. 3. Severe atherosclerotic disease. Kye Montes De Oca MD Chest X-Ray 07/25/162346 Signed Impressions: Service Date/Time: June 23:53 - CONCLUSION: Rotated and underinflated examination with persistent mild airspace opacity at the left lung base likely representing airspace consolidation. Kye Montes De Oca MD Current Medications Active Medications Miscellaneous Information SPECIFIC LAB TO BE DRAWN:VANCO TROUGH DATE TO BE DR... ONCE ONCE .XX; Start 07/31/16 at 20:45; Stop 07/31/16 at 20:46 Vancomycin HCl/ Sodium Chloride (Vancomycin Inj/ NS 250 ml Inj) 250 ml @ 250 mls/hr Q24H IV Last administered on 07/29/16 21:05; Admin Dose 250 MLS/HR; Start 07/29/16 at 21:00 Warfarin Sodium (Coumadin) 1 mg ONCE PO Last administered on 07/29/16 16:00; Admin Dose 1 MG; Start 07/29/16 at 16:00; Stop 07/29/16 at 21:00; Status DC ( Eugenia Cortez) Physical Exam General General Appearance: Well Developed, No Acute Distress, Obese (Eugenia Cortez) Eyes Eye Exam: Pupils Equal, Pupils Reactive (Eugenia Cortez) Ears & Nose Ears & Nose Exam: Nasal Mucosa [place] (Eugenia CortezP) Throat Throat Exam: Oral Mucosa [place] & Moist (Eugenia CortezP) Neck Neck Exam: Neck Supple, Trachea Midline ([place],Eugenia M. COMMODITY LEAD) Pulmonary Resp Exam: Decreased Bases (Eugenia Cortez COMMODITY LEAD) Cardiology CV Exam: Regular ([place] COMMODITY LEAD) Gastrointestinal/Abdomen GI Exam: Soft (taut), Non-Tender (tender to palpation), Bowel Sounds Present, Non-Distended, Bowel Sounds Hypoactive GI Remarks Vital 1.5 40cc /hr <5cc residual patient to flush (Eugenia Cortez COMMODITY LEAD) Musculoskeletal MS Exam: Atrophy, Unable to Ambulate (DiegoEugenia nava COMMODITY LEAD) Integumentary Skin Exam: Warm, Dry (DiegoEugenia nava COMMODITY LEAD) Extremeties Extremities Exam: Pedal Pulses Palpable, Trace Edema ([place] nava COMMODITY LEAD) Neurologic Neuro Exam: Awake (Eugenia Cortez COMMODITY LEAD) VTE Prophylaxis VTE Prophylaxis Meds: Coumadin (Eugenia CortezP) Assessment/Plan Problem List: (1) Failure to thrive in adult (2) PNA (pneumonia) (3) Tachycardia with heart rate 121-140 beats per minute (4) Debility (5) Dysphagia (6) History of CVA with residual deficit (7) Anemia Assessment/Plan Continue with empiric antibiotics follow cultures, negative so far IVF to KVO continue Coumadin follow INR, 1.6today Pharmacy for dosing, plan 2-3 anemia, recent GI work up monitor HH, 8.8, stable Seizure precautions continue home meds, no seizures seen Gastritis, vs illeus, nonspecific Abd. taut, feedings restarted yesterday at 40cc/hr, KUB, nonspecific , no acute changes today. bowel sounds active. BM X 1 Vital signs evaluated, afebrile Op attention, controlled with Clonidine PRN continue Lisinopril continue Cardizem appreciate Palliative care input, notes reviewed. They met with daughter, she and family are requesting continuation of aggressive care Port accessed, flush per protocol Prognosis guarded CM involved for her dc planning. Possible today (Eugenia Cortez COMMODITY LEAD) Assessment/Plan patient seen and examined INR 1.8 switch to po antibiotics tolerating tube feeds BM x1 today ok to d/c to SNF senior living prognosis : POOR discussed with Eugenia (Marcela Bro MD) Problem Qualifiers (1) PNA (pneumonia): Qualified Code: J18.9 - Pneumonia due to infectious organism, unspecified laterality, unspecified part of lung (2) Dysphagia: Qualified Code: R13.10 - Dysphagia, unspecified type (3) Anemia: Qualified Code: D64.9 - Anemia, unspecified type Eugenia Cortez Jul 30, 2016 08:27 Marcela Bro MD Jul 30, 2016 16:08
[2016-07-30] MEDS: SODIUM CHLOR 0.9% 1000 ML INJ 1,000 ML IV SCH (08:50)
[2016-07-30] MEDS: SODIUM CHLORIDE 0.9% FLUSH 10 ML FLUSH IV FLUSH SCH (09:00)
[2016-07-30] MEDS: BENEPROTEIN POWDER 1 PACK G-TUBE SCH ×3 (09:21→17:17)
[2016-07-30] MEDS: FERROUS SULFATE 300 MG /5ML UDC PEG SCH (09:22)
[2016-07-30] MEDS: CHOLECALCIFEROL (VIT D3) 400 UNIT TAB PO SCH (09:22)
[2016-07-30] MEDS: cloNIDine HCL 0.1 MG TAB PEG SCH (09:22)
[2016-07-30] MEDS: DILTIAZEM HCL 30 MG TAB PEG SCH ×3 (09:22→17:18)
[2016-07-30] MEDS: LISINOPRIL 20 MG TAB PEG SCH (09:22)
[2016-07-30] MEDS: CALCIUM CARBONATE 1.25 GM (CA 500 MG) TAB PEG SCH (09:22)
[2016-07-30 11:48] VITALS: BP 168/87; PULSE 113; RESP 18; TEMP 98.5; O2SAT 98
[2016-07-30 16:00] VITALS: BP 178/77; PULSE 115; RESP 18; TEMP 98.3; O2SAT 93
[2016-07-30] MEDS ORDERED: WARFARIN SOD 1 MG TAB PO SCH (16:00)
[2016-07-30] MEDS ORDERED: CEPH-460 PO (16:10)
--- NOTE | 2016-07-30 16:42 | HHI.HCPN ---
Reason for visit Patient known to palliative care services from recent hospitalization from to 07/22/16. Referral by Dr. Pittman for clarifications of goals of care given recent hospitalization, multiple comorbidities, bedbound/total care state for the past 5 years and patient's reported refusal of medical care. a. To assist with evaluation and management of symptoms including: debility and dysphagia. b. To assist medical decision maker(s) with: better understanding of current medical conditions; weighing benefits/burdens of medical treatment options; making medical treatment decisions. . Subjective/Interval History Reviewed recent prior hospitalization from 07/08/16 to 07/22/16. Patient was admitted for management of pneumonia, sepsis, UTI. She was discharged to her long-term facility on 07/22/16. At that time palliative care was consulted for clarifications of goals of care. Palliative care in contact with daughter Cat Childress, at that time family electing for continuation of aggressive care to include full CODE STATUS and return to her long-term facility. Previous prolonged hospitalization from 06/17/16 to 07/06/16 secondary to acute respiratory distress and urosepsis. At that time patient required intubation and mechanical ventilation. This is patient's third acute hospitalization within the last 45 days. As per ED documentation, patient arrived from [facility] where it was reported her refusal to participated in further medical management. Patient endorsing pain in her right arm, chest x-ray showing bilateral airspace opacity at the left lung base likely representing airspace consolidation. Patient received IV fluids and was placed on antibiotics. CT of the abdomen and pelvis reveals a small volume of free fluid of unknown etiology, likely secondary to portal hypertension. Also showing trace bilateral pleural effusions. Laboratory showing WBC 7.6, Hgb 8.8, platelet count 243. Sodium 140 , potassium 4.5, BUN/creatinine 5/0.74. Liver enzymes elevated, AST 128, alkaline phosphatase 191. Albumin 1.8. UA negative for nitrates or leukocytes. Blood cultures pending. Patient seen and assessed in room 1406. No acute events overnight. Patient occasionally responds to simple question with 1-2 word answers or nodding/ shaking her head. She does not follow commands. Abdomen is tender to gentle palpation, grimacing noted. KUB on 07/29/16 was nonspecific. Patient tolerating artificial nutrition, Vital 1.5 at 40ml/hr. Patient will likely be discharged back to [facility] where she is a long-term patient later today. . Family/friend interactions Attempted to contact patient's daughter, Cat Childress, at [phone] to provide an update on the patient's clinical condition and possible discharge. A message was left on the patient's daughter's voicemail. . Advance Directives Living Will: Never completed Health Care Surrogate: Never completed Durable Power of Engineering Design Supervisor: Copy in medical record Advance Directive Specifics Date completed: General power of securities attorney completed on August 22, 2010. . Health Care Surrogate(s): As per daughter, no living will or healthcare surrogate designation has been completed. As per [place] statute, all 3 of patient's children would be healthcare decision-maker's. . Documented care wishes: No living will has been completed. . Significant change in goals: Goals remain aggressive. 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 . Objective Vital Signs Date Time Temp Pulse Resp B/P Pulse Ox O2 Delivery O2 Flow Rate FiO2 07/30/16 11:48 98.5 113 18 168/87 98 07/30/16 08:00 98.5 118 18 169/81 99 07/30/16 07:15 Room Air 07/30/16 04:00 98.3 117 18 160/71 95 07/30/16 00:00 98.8 121 18 161/77 92 07/29/16 21:03 Room Air 07/29/16 20:00 98.7 125 18 189/81 97 Intake & Output 07/30/16 07/30/16 07:00 19:00 Intake Total 1477 ml Balance 1477 ml Intake Oral 0 ml IV Total 777 ml Tube Feeding 580 ml Tube Irrigant 120 ml # Voids 2 # Bowel Movements 2 . Physical Exam CONSTITUTIONAL/GENERAL: This is an elderly female laying in bed in no acute distress, appears older than stated age. TUBES/LINES/DRAINS: PIV's, PEG SKIN: No jaundice, rashes, or lesions. Skin temperature appropriate. Not diaphoretic. HEAD: Atraumatic. Normocephalic. EYES: Pupils equal and round and reactive. No scleral icterus. No injection or drainage. ENT: Hearing appears grossly normal. Nose without bleeding or purulent drainage. Dry lips. NECK: Trachea midline. Supple. CARDIOVASCULAR: Irregular rate and rhythm without murmurs, gallops, or rubs. Peripheral pulses symmetric. RESPIRATORY/CHEST: Symmetric, unlabored respirations. Breath sounds diminished bilaterally GASTROINTESTINAL: Abdomen soft, non-tender, nondistended. No guarding. Bowel sounds present. PEG tube in place, site clean. MUSCULOSKELETAL: Muscle wasting noted. NEUROLOGICAL: Awake. Responds to simple questions occasionally with short answers or by nodding/shaking her head. PSYCHIATRIC: Difficult to assess due to patient's clinical condition. Appears fearful at times, intermittently refusing examination. . Diagnostic Tests Laboratory Laboratory Tests Test 07/28/16 07/28/16 07/29/16 07/30/16 05:45 21:35 06:25 05:20 Prothrombin Time 21.4 SEC 19.4 SEC 20.1 SEC (9.8-11.6) (9.8-11.6) (9.8-11.6) Prothromb Time International 1.9 RATIO 1.7 RATIO 1.8 RATIO Ratio Creatinine 0.70 MG/DL 0.65 MG/DL (0.50-1.00) (0.50-1.00) Estimat Glomerular Filtration 101 ML/MIN 110 ML/MIN Rate (>89) (>89) Vancomycin Level Trough 20.2 MCG/ML (5.0-10.0) . Result Diagram: 07/26/16 0110 07/30/16 0520 Microbiology Microbiology Date/Time Procedure Status Source Growth 07/26/16 00:27 Aerobic Blood Culture - Preliminary Resulted Blood Peripheral NO GROWTH IN 4 DAYS 07/26/16 00:27 Anaerobic Blood Culture - Preliminary Resulted Blood Peripheral NO GROWTH IN 4 DAYS . Imaging Last 72 hours Impressions Abdomen X-Ray 07/29/16 0000 Signed Impressions: Service Date/Time: Friday, July 29, 2016 11:59 - CONCLUSION: Nonspecific abdomen appearance. Gastrostomy noted Kye Gonzalez MD . Assessment and Plan Disease Oriented Problem List: (1) PNA (pneumonia) (2) Tachycardia with heart rate 121-140 beats per minute (3) CVA (cerebral vascular accident) Comment: CVA in 2011. Right-sided hemiparesis. Patient is bedbound/total care. Symptom Scale: (1) Debility 0-10 Scale: Unable to quantify Comment: CVA in 2012 with right-sided hemiparesis. Bedbound/total care. Profound physical deconditioning. Likely to worsen. (2) Dysphagia 0-10 Scale: Unable to quantify Comment: Chronic dysphagia secondary to CVA. PEG tube in place. Pertinent Non-Medical Issues Psychosocial: Patient is . Has 3 children. Resident of long-term facility. Spiritual: Hoahaoism. Legal: No living will completed. Ethical issues impacting care: No living will completed. . Important Contacts Daughter Cat Childress [phone]. Son Todd Childress . Prognosis Mrs. Childress is a 70-year-old female with a medical history significant of left MCA stroke with right-sided hemiparesis, COPD, schizoaffective disorder, dementia, history of of intracranial aneurysm bleed, hypertension, seizure disorder, liver cirrhosis who is a long-term resident at [facility] rehabilitation for the past 5 years. Patient presented to the ED on 07/25/16 after recent hospitalization from 07/08/16 to 07/22/16 secondary to sepsis, pneumonia and UTI. Recent prolonged hospitalization from 06/17/16 to 07/06/16 secondary to acute respiratory distress and urosepsis. At that time patient required intubation and mechanical ventilation. This hospitalization is her third hospitalization within the last 2 months. Patient is full care, bedbound with a PPS of 30%. Overall prognosis is poor for an improved quality of life given patient's age, bedbound state, neurological deficits, multiple comorbidities and acute events. Patient is a very high risk for further decline , complications and . . Code Status: Full Code Plan * CODE STATUS: Full code. Risks and limitations of CPR, intubation and mechanical ventilation discussed with Dr. Shelton. Family electing for continuation of full CODE STATUS. * HEALTHCARE DECISION-MAKING: Patient incapacitated for medical decision-making secondary to clinical condition -Patient is alert to self only. Slurred speech with mostly unintelligible words. Mostly nonverbal. Not following commands, unable to elaborate on complaints. -As per daughter, no living will or healthcare surrogate designation has been completed. Per [place] statute, in the absence of written advanced directives healthcare proxy decision-making falls to the patient's 3 adult children. Power of securities attorney in chart, which does not include medical decision maker. * GOALS OF CARE: Family electing for continuation of aggressive care to include full code/intubation and mechanical ventilation if necessary. * HOSPICE: Patient is clearly hospice appropriate. However, hospice is not in line with current goals of care. Current PPS 30%. * SYMPTOMS: == Debility, secondary to CVA in 2012 with right-sided hemiparesis, bedbound state, recent prolonged hospitalizations. Likely to continue worsening. == Dysphagia, chronic. Secondary to CVA. Patient remains NPO s/p PEG tube placement. * Attempted to contact patient's daughter, Cat Childress, at [phone] to provide an update on the patient's clinical condition and possible discharge. A message was left on the patient's daughter's voicemail. * Possible discharge to [facility] and rehabilitation, where the patient is a long-term resident, later today. Discharge orders in place. * Palliative care will continue to follow-up for further clarifications of goals of care as the clinical course evolves. . Attestation To help prompt me to consider important information that might be impacting today's encounter and assessment, information from prior notes written by myself or my colleagues may have been "brought forward" into today's note. My signature on this note, however, is an attestation that I personally performed the exam, history, and/or decision-making noted today, and, unless otherwise indicated, the interactions with patient, family, and staff as well as the review of records all occurred today. I also attest that the listed assessment and stated plan reflect my best clinical judgment today based on the combination of historical information, prior notes, and today's exam/ interactions. When time spent is documented, it refers only to time spent today by the signer, or if indicated, combined time spent today by collaborating physician/nurse practitioner. . Cat Strong Jul 30, 2016 16:41
[2016-07-30] MEDS: WARFARIN SOD 5 MG TAB PO SCH (17:18)
[2016-07-30 17:55] VITALS: BP_SYST 158; BP_DIAS 110; BP_DIAS 76
--- NOTE | 2016-07-31 18:56 | HHI.DS ---
Discharge Summary Admission Date Jul 26, 2016 at 02:28 Discharge Date: Jul 30, 2016 Admitting Diagnosis PNA CBC/BMP: 07/30/16 0520 Significant Findings Laboratory Tests Test 07/28/16 07/29/16 07/30/16 21:35 06:25 05:20 Vancomycin Level Trough 20.2 MCG/ML (5.0-10.0) Prothrombin Time 19.4 SEC 20.1 SEC (9.8-11.6) (9.8-11.6) Imaging Last Impressions Abdomen X-Ray 07/29/16 0000 Signed Impressions: Service Date/Time: Friday, July 29, 2016 11:59 - CONCLUSION: Nonspecific abdomen appearance. Gastrostomy noted Kye Gonzalez MD Abdomen/Pelvis CT 07/26/16 4201 Signed Impressions: Service Date/Time: Tuesday, July 26, 2016 01:27 - CONCLUSION: 1. No acute finding is identified within the abdomen or pelvis. There are stable changes indicative of cirrhosis. There is a small volume of free fluid in the abdomen and pelvis which may be related to portal hypertension. 2. Trace bilateral pleural effusions. 3. Severe atherosclerotic disease. Kye Montes De Oca MD Chest X-Ray 07/25/16 256 Signed Impressions: Service Date/Time: June 23:53 - CONCLUSION: Rotated and underinflated examination with persistent mild airspace opacity at the left lung base likely representing airspace consolidation. Kye Montes De Oca MD PE at Discharge General General Appearance: Well Developed, No Acute Distress, Obese ([place],Eugenia M. HYDRAULIC BILLET MAKER) Eyes Eye Exam: Pupils Equal, Pupils Reactive ([place] M. HYDRAULIC BILLET MAKER) Ears & Nose Ears & Nose Exam: Nasal Mucosa [place] (DiegoEugenia M. HYDRAULIC BILLET MAKER) Throat Throat Exam: Oral Mucosa [place] & Moist (DiegoEugenia M. HYDRAULIC BILLET MAKER) Neck Neck Exam: Neck Supple, Trachea Midline ([place],Eugenia M. HYDRAULIC BILLET MAKER) Pulmonary Resp Exam: Decreased Bases ([place],Eugenia M. HYDRAULIC BILLET MAKER) Cardiology CV Exam: Regular ([place],Eugenia M. HYDRAULIC BILLET MAKER) Gastrointestinal/Abdomen GI Exam: Soft (taut), Non-Tender (tender to palpation), Bowel Sounds Present, Non-Distended, Bowel Sounds Hypoactive GI Remarks Vital 1.5 40cc /hr <5cc residual patient to flush (Eugenia Cortez HYDRAULIC BILLET MAKER) Musculoskeletal MS Exam: Atrophy, Unable to Ambulate (Eugenia Cortez HYDRAULIC BILLET MAKER) Integumentary Skin Exam: Warm, Dry (Eugenia Cortez HYDRAULIC BILLET MAKER) Extremeties Extremities Exam: Pedal Pulses Palpable, Trace Edema (Eugenia Cortez HYDRAULIC BILLET MAKER) Neurologic Neuro Exam: Awake (Eugenia CortezP) VTE Prophylaxis VTE Prophylaxis Meds: Coumadin (Eugenia Cortez HYDRAULIC BILLET MAKER) Hospital Course These are the diagnoses that were used to take care of this patient during this hospital stay. (1) Failure to thrive in adult (2) PNA (pneumonia) (3) Tachycardia with heart rate 121-140 beats per minute (4) Debility (5) Dysphagia (6) History of CVA with residual deficit (7) Anemia Assessment/Plan When admitted to the hospital patient was started back on her tube feeds, at 40 cc an hour and tolerated without any problems. 2 days before discharge, patient 's abdomen was taut, but had a less than 5 cc residual in her tube feeds. KUB was done, without any acute medical issues. Feedings were restarted, patient tolerated well. Continue with empiric antibiotics throughout her hospital stay to cover any signs of infection follow cultures, negative so far IVF to KVO Patient was transferred back to by mouth antibiotics and was stable for discharge on today's date continue Coumadin throughout her hospital stay. This was one of her home meds follow INR, 1.6today Pharmacy for dosing, plan 2-3 anemia, recent GI work up monitor HH, 8.8, stable Patient had a recent history of gastritis, this diagnosis to is medical management Seizure precautions continue home meds, no seizures seen Gastritis, vs illeus, nonspecific Abd. taut, feedings restarted yesterday at 40cc/hr, KUB, nonspecific , no acute changes today. bowel sounds active. BM X 1 Vital signs evaluated, afebrile Op attention, controlled with Clonidine PRN continue Lisinopril continue Cardizem appreciate Palliative care input, notes reviewed. They met with daughter, she and family are requesting continuation of aggressive care Port accessed, flush per protocol Prognosis guarded CM involved for her dc planning. Patient has had several medical admissions recently for her dysphasia and GI distress. Patient also currently has failure to thrive and is struggling with her discharge planning and medical management. Patient is full code full aggressive care because this is the wishes of her kids. I have never met any of her children. Assessment/Plan per Dr. hylton day of discharge, notes as follows patient seen and examined INR 1.8 switch to po antibiotics tolerating tube feeds BM x1 today ok to d/c to SNF terminal manager prognosis : POOR discussed with Eugenia Discharged back to her previous SNF, no distress on transfer Pt Condition on Discharge: Fair Discharge Disposition: Discharge to SNF Discharge Instructions DIET: Follow Instructions for: Nothing By Mouth Activities you can perform: Continue Bedrest Follow up Referrals: SNF/[facility]/ with [facility] New Medications: Cephalexin (Keflex) 500 Mg Cap 500 MG PO Q6H Infection Days 7 Ref 0 CAP Continued Medications: Calcium (Calcium) 600 Mg Tab 600 MG PEG DAILY TAB Cholecalciferol (Vitamin D3) 400 Unit Tab 400 UNITS PO BID Nutritional Supplement #1 Ref 0 TAB Clonidine (Clonidine) 0.1 Mg Tab 0.1 MG PEG BID Blood Pressure Management #60 Ref 0 TAB Diltiazem (Cardizem) 30 Mg Tab 30 MG PEG QID Angina #120 Ref 0 TAB Ferrous Sulfate Liq (Ferrous Sulfate Liq) 300 Mg/5 Ml Soln 325 MG PEG DAILY Nutritional Supplement #150 Ref 0 ML Levetiracetam Liq (Keppra Liq) 500 Mg/5 Ml Soln 750 MG PO/TUBE Q12HR PRN Seizure Control Days 30 ML Lisinopril (Lisinopril) 20 Mg Tab 20 MG PEG DAILY #30 Ref 0 TAB Phenytoin Liq (Phenytoin Liq) 125 Mg/5 Ml Mira 200 MG PEG Q8HR Control Seizures #237 Ref 0 ML Warfarin (Coumadin) 5 Mg Tab 5 MG PO DAILY@1600 THROMBUS PREVENTION #30 Ref 0 TAB Discontinued Medications: Acetaminophen (Tylenol) 325 Mg Tab 650 MG PEG Q6H PRN PAIN SCALE 1 TO 10 Ref 0 TAB Lorazepam (Ativan) 0.5 Mg Tab 0.5 MG PEG BID PRN ANXIETY AND/OR AGITATION Ref 0 TAB Eugenia Cortez Jul 31, 2016 18:56
[2016-07-31] MEDS ORDERED: PHARMACY ORDERED LAB ONE (20:45)
== END 2016-07-30 18:35 | DRG 194 ==
LOC: NEPE 23:10 → NEDA 07-26 02:28 → NEDH 07-26 07:41 → NEPGCP 07-26 13:59 → N04A 07-26 23:40
PROVIDERS: ADMIT Specialist; ATTEND Specialist
DX: J18.9 Pneumonia, unspecified organism (principal); J44.0 Chronic obstructive pulmonary disease with (acute) lower respiratory infection; K76.6 Portal hypertension; I11.0 Hypertensive heart disease with heart failure; I69.351 Hemiplegia and hemiparesis following cerebral infarction affecting right dominant side; I50.9 Heart failure, unspecified; R62.7 Adult failure to thrive; R00.0 Tachycardia, unspecified; R47.02 Dysphasia; D64.9 Anemia, unspecified; Z93.1 Gastrostomy status; K29.70 Gastritis, unspecified, without bleeding; Z79.01 Long term (current) use of anticoagulants; E78.5 Hyperlipidemia, unspecified; G47.30 Sleep apnea, unspecified; I48.91 Unspecified atrial fibrillation; J45.909 Unspecified asthma, uncomplicated; K21.9 Gastro-esophageal reflux disease without esophagitis; Z74.01 Bed confinement status; Z85.3 Personal history of malignant neoplasm of breast; F20.9 Schizophrenia, unspecified; F41.9 Anxiety disorder, unspecified
CPT/HCPCS: 71010; 74000; 74177; 80053; 80202; 81001; 82565; 83605; 83690; 85007; 85027; 85610; 87040; 93005; 94664; 96361; 96374; J0692; J1170; J1642; J3370; J7030; J7050; J7613; Q9967

== ENCOUNTER 2017-04-07 13:34 | Observation (INO) | payer MEDICAID, MEDICARE ==
[~2017-04-07 13:34] MED LIST changes: +CALC600T13 PEG; +CEPH-460 PO; -DIFL100T PO; +DILT31TA PEG; -DILT31TA PO; +FERR300S PEG; +PHEN125S PEG; -PHEN125S PO; -TYLE325T PEG; +VITD400 PO
[2017-04-07 13:52] VITALS: BP 143/67; PULSE 104; RESP 18; TEMP 98.1; O2SAT 99
--- NOTE | 2017-04-07 15:31 | PD ---
HPI Chief Complaint: Behavior Analyst Problem Time Seen by Provider: 14:30 (Rand Anton) Time Seen by Provider: 14:17 (Kacey Mireles DO) Travel History International Travel<30 days: No Contact w/Intl Traveler<30days: No Traveled to known affect area: No (Rand Anton) History of Present Illness HPI 71-year-old female patient presents emergency department for evaluation of clogged G-tube. She was sent to our facility from [facility]. Patient is alert but nonverbal. She has a history of stroke and cannot take anything by mouth secondary to dysphagia. Paperwork sent from facility reviewed, the facility was called to determine when the G-tube was initially called. The patient's nurse states that it was not clogged until this morning. Patient nurse denies any other physiological complaints that the patient has experienced outside the clogged G-tube at this time. (aRnd Anton) PFSH Past Medical History Asthma: Yes Anxiety: Yes Depression: Yes Cancer: Yes (LEFT BREAST) Cardiovascular Problems: Yes Congestive Heart Failure: Yes Cerebrovascular Accident: Yes (INTRACRANIAL BLEED) Diminished Hearing: No Gastrointestinal Disorders: Yes (DYSPHAGIA-- GI BLEED) GERD: Yes Genitourinary: Yes Hypertension: Yes Implanted Vascular Access Dvce: Yes Insomnia: Yes Neurologic: Yes (Intracerebral bleed/Dyshpagia, DEPRESSIVE DISORDER, DYSPHAGIA) Psychiatric: Yes (SCHIZOAFFECTIVE D/O) Respiratory: Yes (Pleural Effusion) Schizophrenia: Yes Seizures: Yes Sleep Apnea: Yes (INSOMNIA W/SLEEP APNEA) Triglycerides - High: Yes Menopausal: Yes : 3 Para: 3 (Rand Anton) Past Surgical History Abdominal Surgery: Yes (PREVIOUS PEG TUBE PLACEMENT) Body Medical Devices: PEG TUBE Pacemaker: No Other Surgery: Yes (Rand Anton) Social History Alcohol Use: No Tobacco Use: No Substance Use: No (Rand Anton) Allergies-Medications (Allergen,Severity, Reaction): Coded Allergies: aspirin (Unverified Allergy, Severe, 04/07/17) *MDRO Multi-Drug Resistant Organism (Verified Adverse Reaction, Unknown, Cleared 05/2016, 04/07/17) MRSA (wound & sputum) - 01/2012 *Cleared - MRSA PCR (nares) NEGATIVE on 06/18/16 & 06/25/16* Reported Meds & Prescriptions Reported Meds & Active Scripts Active Keflex (Cephalexin) 500 Mg Cap 500 Mg PO Q6H 7 Days Coumadin (Warfarin) 5 Mg Tab 5 Mg PO DAILY@1600 Keppra Liq (Levetiracetam) 500 Mg/5 Ml Soln 750 Mg PO/TUBE Q12HR PRN 30 Days Reported Cardizem (Diltiazem HCl) 30 Mg Tab 30 Mg PEG QID Ferrous Sulfate Liq (Ferrous Sulfate) 300 Mg/5 Ml Soln 325 Mg PEG DAILY Phenytoin Liq (Phenytoin) 125 Mg/5 Ml Mira 200 Mg PEG Q8HR Calcium 600 Mg Tab 600 Mg PEG DAILY Vitamin D3 (Cholecalciferol) 400 Unit Tab 400 Units PO BID Lisinopril 20 Mg Tab 20 Mg PEG DAILY Clonidine (Clonidine HCl) 0.1 Mg Tab 0.1 Mg PEG BID (Kacey Mireles DO) Review of Systems Except as stated in HPI: all other systems reviewed are Neg (Rand Anton) Physical Exam Narrative GENERAL: Alert, nonverbal 71-year-old female patient resting comfortably in the bed. No acute respiratory distress. SKIN: Focused skin assessment warm/dry. HEAD: Normocephalic. Atraumatic. EYES: No scleral icterus. No injection or drainage. NECK: Supple, trachea midline. No JVD or lymphadenopathy. CARDIOVASCULAR: Regular rate and rhythm without murmurs, gallops, or rubs. RESPIRATORY: Breath sounds equal bilaterally. No accessory muscle use. GASTROINTESTINAL: G-tube in place Abdomen soft, non-tender, nondistended. MUSCULOSKELETAL: No cyanosis, or edema. BACK: Nontender without obvious deformity. No CVA tenderness. (Rand Anton) Data Data Last Documented VS Vital Signs Date Time Temp Pulse Resp B/P (MAP) Pulse Ox O2 Delivery O2 Flow Rate FiO2 04/07/17 18:56 106 18 160/71 (100) 96 Room Air 04/07/17 13:52 98.1 (Kacey Mireles DO) Orders Orders Admit Order (Ed Use Only) (04/07/17 19:16) Gastrostomy Tube Injection (04/08/17 ) (Kacey Mireles DO) MDM Medical Decision Making Medical Screen Exam Complete: Yes Emergency Medical Condition: Yes Interpretation(s) Tachycardic Differential Diagnosis Differential diagnosis includes but not limited to clogged G-tube, medical equipment malfunction Narrative Course 71-year-old female presents emergency department for evaluation of clogged G- tube. PEG tube was attempted to be flushed. It was unable to be flushed. Medical records were reviewed regarding the size of the G-tube and it was noted that she has had a G-tube replacement as an [place] at our facility prior. [place] G-tube obtained from [facility]. When G-tube was attempted to be replaced it was noted that the G-tube in place did not have any area to deflate the balloon. IR was consulted to replace the G-tube. IR returned call and instructed how to remove the G-tube. Per Dr. Mireles's recommendation patient will be admitted for observation to get G-tube replaced. Hepas paged for admission. Dr. Sadler called back and accepted admission. Patient will be admitted for observation to get her G-tube replaced tomorrow. (Rand Anton) Diagnosis Primary Impression: Feeding tube obstruction Qualified Codes: T85.598A - Other mechanical complication of other gastrointestinal prosthetic devices, implants and grafts, initial encounter Admitting Information Admitting Physician Requests: Observation (Rand Anton) Rand Anton Apr 07, 2017 15:31 Kacey Mireles DO Apr 10, 2017 06:54
[2017-04-07 18:56] VITALS: BP 160/71; PULSE 106; RESP 18; O2SAT 96
[2017-04-07] MEDS ORDERED: IOHEXOL 350 MG/ML 50 ML BTL (for RAD DIAG) PEG ONE (19:19)
[2017-04-07] MEDS ORDERED: SODIUM CHLORIDE 0.9% FLUSH 10 ML FLUSH IV FLUSH PRN (20:00)
[2017-04-07] MEDS ORDERED: ACETAMINOPHEN 325 MG TAB PO PRN (20:00)
[2017-04-07] MEDS ORDERED: NALOXONE HCL 0.4 MG/ML AMP IV PUSH PRN (20:00)
[2017-04-07] MEDS: SODIUM CHLOR 0.45% 1000 ML INJ 1,000 ML IV SCH (20:00)
[2017-04-07] MEDS ORDERED: ONDANSETRON HCL 4 MG/2 ML VIAL IVP PRN (20:00)
--- NOTE | 2017-04-07 20:40 | HHI.HP ---
[facility] Service [facility] Primary Care Physician Sean Stein M.D. Admission Diagnosis G tube malfunction Diagnoses: Travel History International Travel<30 Days: No Contact w/Intl Traveler <30 Da: No Traveled to Known Affected Are: No History of Present Illness 71-year-old female with a past medical history of CVA with resulting dysphasia, A. fib on Coumadin, hypertension and seizure disorder was brought to the emergency department for evaluation of a clot G-tube. The patient is nonverbal. G-tube exchange was attempted in the emergency department however they were unable to remove the old G-tube. The patient is admitted for observation with plans for G-tube exchange with interventional radiology in the morning. Review of Systems Unable to obtain secondary to patient's clinical condition Past Family Social History Past Medical History (Obtained from medical records) medical history of CVA with resulting dysphasia, A. fib on Coumadin, hypertension, COPD, GERD, Schizophrenia, HLD and seizure disorder Past Surgical History PEG tube placement Reported Medications Reported Meds & Active Scripts Active Keflex (Cephalexin) 500 Mg Cap 500 Mg PO Q6H 7 Days Coumadin (Warfarin) 5 Mg Tab 5 Mg PO DAILY@1600 Keppra Liq (Levetiracetam) 500 Mg/5 Ml Soln 750 Mg PO/TUBE Q12HR PRN 30 Days Reported Cardizem (Diltiazem HCl) 30 Mg Tab 30 Mg PEG QID Ferrous Sulfate Liq (Ferrous Sulfate) 300 Mg/5 Ml Soln 325 Mg PEG DAILY Phenytoin Liq (Phenytoin) 125 Mg/5 Ml Mira 200 Mg PEG Q8HR Calcium 600 Mg Tab 600 Mg PEG DAILY Vitamin D3 (Cholecalciferol) 400 Unit Tab 400 Units PO BID Lisinopril 20 Mg Tab 20 Mg PEG DAILY Clonidine (Clonidine HCl) 0.1 Mg Tab 0.1 Mg PEG BID Allergies: Coded Allergies: aspirin (Unverified Allergy, Severe, 04/07/17) *MDRO Multi-Drug Resistant Organism (Verified Adverse Reaction, Unknown, Cleared 05/2016, 04/07/17) MRSA (wound & sputum) - 01/2012 *Cleared - MRSA PCR (nares) NEGATIVE on 06/18/16 & 06/25/16* Family History Unable to obtain secondary to patient's clinical condition Social History Patient is a resident of the assisted facility. Physical Exam Vital Signs Vital Signs Date Time Temp Pulse Resp B/P (MAP) Pulse Ox O2 Delivery O2 Flow Rate FiO2 04/07/17 20:27 04/07/17 18:56 106 18 160/71 (100) 96 Room Air 04/07/17 13:52 98.1 104 18 143/67 (92) 99 Physical Exam GENERAL: female lying in bed, nonverbal SKIN: No rashes, ecchymoses or lesions. Cool and dry. HEAD: Atraumatic. Normocephalic. No temporal or scalp tenderness. EYES: Pupils equal round and reactive. Extraocular motions intact. No scleral icterus. No injection or drainage. ENT: Nose without bleeding, purulent drainage or septal hematoma. Throat without erythema, tonsillar hypertrophy or exudate. Uvula midline. Airway patent. NECK: Trachea midline. No JVD or lymphadenopathy. Supple, nontender, no meningeal signs. CARDIOVASCULAR: Regular rate and rhythm without murmurs, gallops, or rubs. RESPIRATORY: Clear to auscultation. Breath sounds equal bilaterally. No wheezes , rales, or rhonchi. GASTROINTESTINAL: Abdomen soft, non-tender, nondistended. No hepato-splenomegaly , or palpable masses. No guarding. MUSCULOSKELETAL: Extremities without clubbing, cyanosis, or edema. No joint tenderness, effusion, or edema noted. NEUROLOGICAL: Awake and alert, nonverbal. Caprini VTE Risk Assessment Caprini VTE Risk Assessment: Mod/High Risk (score >= 2) Caprini Risk Assessment Model Point Value = 1 Point Value = 2 Point Value = 3 Point Value = 5 Age 41-60 Minor surgery BMI > 25 kg/m2 Swollen legs Varicose veins or History of unexplained or recurrent spontaneous Oral contraceptives or hormone replacement Sepsis (< 1 month) Serious lung disease, including pneumonia (< 1 month) Abnormal pulmonary function Acute myocardial infarction Congestive heart failure (< 1 month) History of inflammatory bowel disease Medical patient at bed rest Age 61-74 Arthroscopic surgery Major open surgery (> 45 min) Laparoscopic surgery (> 45 min) Malignancy Confined to bed (> 72 hours) Immobilizing plaster cast Central venous access Age >= 75 History of VTE Family history of VTE Factor V Leiden Prothrombin [id number] Lupus anticoagulant Anticardiolipin antibodies Elevated serum homocysteine Heparin-induced thrombocytopenia Other congenital or acquired thrombophilia Stroke (< 1 month) Elective arthroplasty Hip, pelvis, or leg fracture Acute spinal cord injury (< 1 month) Prophylaxis Regimen Total Risk Factor Score Risk Level Prophylaxis Regimen 0-1 Low Early ambulation 2 Moderate Order ONE of the following: *Sequential Compression Device (SCD) *Heparin 5000 units SQ BID 3-4 Higher Order ONE of the following medications: *Heparin 5000 units SQ TID *Enoxaparin/Lovenox 40 mg SQ daily (WT < 150 kg, CrCl > 30 mL/min) *Enoxaparin/Lovenox 30 mg SQ daily (WT < 150 kg, CrCl > 10-29 mL/min) *Enoxaparin/Lovenox 30 mg SQ BID (WT < 150 kg, CrCl > 30 mL/min) AND/OR *Sequential Compression Device (SCD) 5 or more Highest Order ONE of the following medications: *Heparin 5000 units SQ TID (Preferred with Epidurals) *Enoxaparin/Lovenox 40 mg SQ daily (WT < 150 kg, CrCl > 30 mL/min) *Enoxaparin/Lovenox 30 mg SQ daily (WT < 150 kg, CrCl > 10-29 mL/min) *Enoxaparin/Lovenox 30 mg SQ BID (WT < 150 kg, CrCl > 30 mL/min) AND *Sequential Compression Device (SCD) Assessment and Plan Assessment and Plan Assessment/plan: 1. Clogged G-tube Plan for G-tube exchange with interventional radiology in the morning 2. History of CVA Patient with residual dysphasia, nonverbal communication 3. Atrial fibrillation PT/INR pending Per medical records, patient is on Coumadin Continue home Coumadin once INR results Continue home medications 4. Seizure disorder status post CVA Continue home medications Seizure precautions 5. Hypertension Continue home medications FEN NPO NS at 75 cc/hr Coumadin Case discussed with ER physician at length Jessica Sadler MD Apr 07, 2017 20:40
[2017-04-07] MEDS ORDERED: levETIRAcetam 500 MG/5 ML UDC PEG PRN (20:45)
[2017-04-07] MEDS: SODIUM CHLORIDE 0.9% FLUSH 10 ML FLUSH IV FLUSH SCH (21:00)
[2017-04-07] MEDS: DILTIAZEM HCL 30 MG TAB PEG SCH (21:00)
[2017-04-07] MEDS: cloNIDine HCL 0.1 MG TAB PEG SCH (21:00)
[2017-04-07 21:31] VITALS: BP 142/79; PULSE 109; RESP 18; O2SAT 96
[2017-04-07] MEDS: PHENYTOIN SUSP 100 MG/4 ML CUP PEG SCH (22:00)
[2017-04-08 00:11] VITALS: BP 148/70; PULSE 110; RESP 18; TEMP 97.1; O2SAT 98
[2017-04-08 04:22] VITALS: BP 159/90; PULSE 107; RESP 18; TEMP 96.3; O2SAT 98
[2017-04-08] MEDS: PHENYTOIN SUSP 100 MG/4 ML CUP PEG SCH ×3 (05:32→22:00)
[2017-04-08 07:51] VITALS: BP 162/75; PULSE 108; RESP 22; TEMP 98.2; O2SAT 95
[2017-04-08] MEDS: LISINOPRIL 20 MG TAB PEG SCH ×2 (09:00→13:17)
[2017-04-08] MEDS: SODIUM CHLORIDE 0.9% FLUSH 10 ML FLUSH IV FLUSH SCH ×2 (09:00→21:00)
[2017-04-08] MEDS: DILTIAZEM HCL 30 MG TAB PEG SCH ×4 (09:00→21:00)
[2017-04-08] MEDS: FERROUS SULFATE 300 MG /5ML UDC PEG SCH ×2 (09:00→13:17)
[2017-04-08] MEDS: cloNIDine HCL 0.1 MG TAB PEG SCH ×2 (09:00→21:00)
[2017-04-08] MEDS: SODIUM CHLOR 0.45% 1000 ML INJ 1,000 ML IV SCH ×2 (09:20→22:40)
--- NOTE | 2017-04-08 10:30 | PD.RAD ---
Post Procedure Progress Note Pre Procedure Diagnosis: (1) Feeding tube obstruction Post Procedure Diagnosis: (1) Feeding tube obstruction Procedure Date: Apr 08, 2017 Supervising Radiologist: Molina Chavis Plan of Activity Patient to Unit: Other Patient Condition: Fair Additional Comments: Feeding tube was easily unclogged and is OK for use. full dictated report to follow See PACS Report for procedural detail/treatment Molina Chavis MD Apr 08, 2017 10:30
--- NOTE | 2017-04-08 11:15 | RADRPT ---
EXAM DATE/TIME: 04/08/2017 10:55 [facility] COMPARISON: No previous studies available for comparison. INDICATIONS : Patient presents with malfunctioning Gastronomy tube in need of evaluation. MEDICAL HISTORY : (Obtained from medical records) CVA with resulting dysphasia Afib HTN COPD GERD Schizophrenia HLD Seizure disorder Cancer, left breast CHF SURGICAL HISTORY : PEG tube placement ENCOUNTER: Initial ACUITY: 1 day PAIN SCORE: 0/10 LOCATION: Unresponsive FLUORO TIME: 0.4 minutes IMAGE SERIES: 1 CONTRAST: 5 cc Omnipaque (iohexol) 350 PROCEDURE : 1. Fluoroscopically guided tube injection. 2. Conscious sedation with continuous EKG and oximetry monitoring. The risks, benefits and alternatives to the procedure were explained to the patient's caregiver and v erbal and written consent was obtained. The site was prepped in sterile fashion. Full sterile techn ique was used, including cap, mask, sterile gloves and gown and a large sterile sheet. Hand hygiene and 2% chlorhexidine and/or betadine/alcohol prep was utilized per protocol for cutaneous antisepsis. With fluoroscopic guidance the previously placed tube was evaluated. The tube was clogged. The clot w as at the level of the Mary disc. The disc was moved back. The clot was easily removed. The tube fu nctioned normally post procedure. CONCLUSION: Uncomplicated unclogging of the patient's gastrostomy tube as above. Molina Chavis MD on April 08, 2017 at 11:13 Board Certified Radiologist. This report was verified electronically.
[2017-04-08 11:45] VITALS: BP 177/85; PULSE 107; RESP 18; TEMP 98.3; O2SAT 97
--- NOTE | 2017-04-08 15:06 | HHI.PR ---
Subjective Remarks Patient sitting in bed, she continued to refuse any blood work She seems to be demented and not aware of environment She keeps saying only "no ""I don't know " Is cussed with the nurse, many attempts have been tried to obtain blood work Patient had her G-tube repair today Blood pressure and heart rate were high but we will resume her medication after fixing the G-tube Objective Vitals Vital Signs Date Time Temp Pulse Resp B/P (MAP) Pulse Ox O2 Delivery O2 Flow Rate FiO2 04/08/17 11:45 98.3 107 18 177/85 (115) 97 04/08/17 07:51 98.2 108 22 162/75 (104) 95 04/08/17 04:22 96.3 107 18 159/90 (113) 98 04/08/17 00:11 97.1 110 18 148/70 (96) 98 04/07/17 21:31 109 18 142/79 (100) 96 04/07/17 20:27 04/07/17 18:56 106 18 160/71 (100) 96 Room Air I/O 04/07/17 04/07/17 04/07/17 04/08/17 04/08/17 04/08/17 07:00 15:00 23:00 07:00 15:00 23:00 # Voids 3 Objective Remarks GENERAL: This is a frail elderly lady which seems to be demented SKIN: No rashes, warm and dry HEAD: Atraumatic. Normocephalic. EYES: Pupils equal round and reactive. Extraocular motions intact. No scleral icterus. ENT: Nose without bleeding, or drainage, Airway patent. NECK: Trachea midline. Supple CARDIOVASCULAR: Regular rate and rhythm without murmurs, gallops, or rubs. RESPIRATORY: Fair air entry bilaterally. No wheezes, rales, or rhonchi. GASTROINTESTINAL: Abdomen soft, non-tender, nondistended. Positive bowel sounds MUSCULOSKELETAL: Extremities without clubbing, cyanosis, or edema. Pedal pulses appreciated NEUROLOGICAL: Demented with some limbs contractions, repeating same word "no " A/P Assessment and Plan 04/08: In light of patient continuing to refuse lab work, we will hold Coumadin , I will consult palliative care to help addressing goal of treatment, patient might be candidate for comfort care, Coumadin may not be a good option in light of her worsened mental status 1. Clogged G-tube Plan for G-tube exchange with interventional radiology in the morning 2. History of CVA with dementia Patient with residual dysphasia, nonverbal, level of dementia 3. Atrial fibrillation PT/INR unknown due to patient refusing lab work Per medical records, patient is on Coumadin Old Coumadin due to refusing INR lab work 4. Seizure disorder status post CVA Continue home medications Seizure precautions 5. Hypertension Continue home medications FEN NPO NS at 75 cc/hr Coumadin Storm Álvarez MD Apr 08, 2017 15:06
[2017-04-08 15:51] VITALS: BP 144/69; PULSE 103; RESP 19; TEMP 98.3; O2SAT 97
[2017-04-08] MEDS ORDERED: WARFARIN SOD 5 MG TAB PO SCH (16:00)
--- NOTE | 2017-04-08 16:05 | HHI.PR ---
Objective Vitals Vital Signs Date Time Temp Pulse Resp B/P (MAP) Pulse Ox O2 Delivery O2 Flow Rate FiO2 04/08/17 15:51 98.3 103 19 144/69 (94) 97 04/08/17 11:45 98.3 107 18 177/85 (115) 97 04/08/17 07:51 98.2 108 22 162/75 (104) 95 04/08/17 04:22 96.3 107 18 159/90 (113) 98 04/08/17 00:11 97.1 110 18 148/70 (96) 98 04/07/17 21:31 109 18 142/79 (100) 96 04/07/17 20:27 04/07/17 18:56 106 18 160/71 (100) 96 Room Air I/O 04/07/17 04/07/17 04/07/17 04/08/17 04/08/17 04/08/17 07:00 15:00 23:00 07:00 15:00 23:00 # Voids 3 Objective Remarks GENERAL: This is a frail elderly lady which seems to be demented SKIN: No rashes, warm and dry HEAD: Atraumatic. Normocephalic. EYES: Pupils equal round and reactive. Extraocular motions intact. No scleral icterus. ENT: Nose without bleeding, or drainage, Airway patent. NECK: Trachea midline. Supple CARDIOVASCULAR: Regular rate and rhythm without murmurs, gallops, or rubs. RESPIRATORY: Fair air entry bilaterally. No wheezes, rales, or rhonchi. GASTROINTESTINAL: Abdomen soft, non-tender, nondistended. Positive bowel sounds MUSCULOSKELETAL: Extremities without clubbing, cyanosis, or edema. Pedal pulses appreciated NEUROLOGICAL: Demented with some limbs contractions, repeating same word "no A/P Assessment and Plan 04/08: In light of patient continuing to refuse lab work, we will hold Coumadin , I will consult palliative care to help addressing goal of treatment, patient might be candidate for comfort care, Coumadin may not be a good option in light of her worsened mental status 1. Clogged G-tube Plan for G-tube exchange with interventional radiology in the morning 2. History of CVA with dementia Patient with residual dysphasia, nonverbal, level of dementia 3. Atrial fibrillation PT/INR unknown due to patient refusing lab work Per medical records, patient is on Coumadin Old Coumadin due to refusing INR lab work 4. Seizure disorder status post CVA Continue home medications Seizure precautions 5. Hypertension Continue home medications FEN NPO NS at 75 cc/hr Coumadin Storm Álvarez MD Apr 08, 2017 16:05
[2017-04-08 21:50] VITALS: BP 142/67; PULSE 113; RESP 18; TEMP 99.5; O2SAT 97
[2017-04-09 00:20] VITALS: BP 148/70; PULSE 111; RESP 18; TEMP 98; O2SAT 95
[2017-04-09 03:54] VITALS: BP 144/76; PULSE 111; RESP 18; TEMP 98.1; O2SAT 96
[2017-04-09] MEDS: PHENYTOIN SUSP 100 MG/4 ML CUP PEG SCH ×3 (06:28→23:08)
[2017-04-09 08:07] VITALS: BP 137/93; PULSE 110; RESP 20; TEMP 98.3; O2SAT 95
[2017-04-09] MEDS: cloNIDine HCL 0.1 MG TAB PEG SCH ×3 (09:00→23:09)
[2017-04-09] MEDS: SODIUM CHLORIDE 0.9% FLUSH 10 ML FLUSH IV FLUSH SCH ×2 (09:00→23:55)
[2017-04-09] MEDS: DILTIAZEM HCL 30 MG TAB PEG SCH ×5 (09:00→23:09)
--- NOTE | 2017-04-09 10:29 | PD.CONS ---
Consult Service Palliative Care Consult Requested By Dr. Álvarez . Primary Care Physician Sean Stein M.D. Reason for Consultation a. To assist with evaluation and management of symptoms including: dysphagia , debility b. To assist medical decision maker(s) with: better understanding of current medical conditions; weighing benefits/burdens of medical treatment options; making medical treatment decisions. HPI History of Present Illness Mrs Childress is a 71 years old female with a past medical history of CVA with dysphagia, hypertension, atrial fibrillation on Coumadin, seizures, intracranial aneurysm bleed, liver cirrhosis, COPD, GERD, schizophrenia, dementia, hyperlipidemia. Patient is non-verbal. She presented to the ER on 03/14 for evaluation of a clogged G-Tube. PEG tube was attempted to be flushed in the ER with no success. Review of prior medical records reveal: Recent hospitalization was from 07/25/16-07/31/16 and patient was hospitalized and treated for pneumonia. Patient was also hospitalized from 06/17/16-07/06/16 after she presented with altered mental status and left facial droop. Patient required intubation with mechanical ventilation for 6 days and placement of a PEG tube secondary to dysphagia. Patient was discharged to [facility]. ER Course: * Vital signs: Temperature 98.1 degrees F, heart rate 104, BP 143/67, O2 saturation 99% Interventional radiology Dr. Chavis consulted for evaluation and management of G- tube. PEG tube easily located by interventional radiology on 04/08/17. Patient refusing to have blood drawn for labwork today. Palliative care consulted to assist with a dressing goals of care. Patient seen and examined in her room, in the emergency room. Patient is awake , alert and aphasic. He tries to communicate by shaking and nodding her head. Patient seems to shake her head on no for any question asked. Patient does not seem to be in any signs of pain or distress. Met with patient's daughter at bedside, Cat Childress. Updated on medical status. Obtained some of patient`s psychosocial history and medical history. Patient never completed advance directives. Addressed code status, discussed risks, benefits and limitations of CPR given patient's ongoing multiple comorbidities. Patient's daughter stated that she wants patient to be a full code and she wants aggressive treatment for her mother. Patient's daughter notified of patient's refusal of blood draw for laboratory work, she offered to stay at bedside and have patient`s blood drawn while she talks to patient. Patient nodded head for "yes" to allow [facility] life dean to draw blood when they come. Patient`s daughter stated that patient has a tendency to say "no" for everything even if she does not mean it. . Function/Cognitive Trajectory Patient has a history of large MCA stroke in 2011 which left her with right- sided sided hemiparesis. Patient is a long-term resident at [facility] for the past 5 years. Patient is totally bedbound and dependent for all her ADLs. Patient has aphasia and most of the times has a difficult time to communicate her needs. . Review of Systems ROS Limitations: Speech Impaired Constitutional: DENIES: Fever, Pain Eyes: DENIES: Eye inflammation Ears, nose, mouth, throat: DENIES: Nasal discharge Respiratory: DENIES: Cough, Shortness of breath Cardiovascular: DENIES: Dyspnea on Exertion, Lower Extremity Edema Gastrointestinal: COMPLAINS OF: Difficulty Swallowing, DENIES: Nausea, Vomiting Genitourinary: COMPLAINS OF: Urinary incontinence Musculoskeletal: COMPLAINS OF: Decreased range of motion Hematologic/Lymphatics: COMPLAINS OF: Bruising Neurologic: COMPLAINS OF: Speech Problems Psychiatric: COMPLAINS OF: Anxiety Other ROS: ROS obtained from medical records and clinical observation. . Past Family Social History Coded Allergies: aspirin (Unverified Allergy, Severe, 04/07/17) *MDRO Multi-Drug Resistant Organism (Verified Adverse Reaction, Unknown, Cleared 05/2016, 04/07/17) MRSA (wound & sputum) - 01/2012 *Cleared - MRSA PCR (nares) NEGATIVE on 06/18/16 & 06/25/16* Past Medical History (Obtained from medical records) Left MCA stroke with right-sided hemiparesis Brain aneurysm and intracranial bleed in January 2012 COPD Sleep apnea Schizoaffective disorder Dementia Hypertension Seizure disorder Liver cirrhosis Hyperlipidemia Atrial fibrillation on Coumadin Anxiety and depression Breast cancer S/P mastectomy . Past Surgical History Mastectomy in 2011 Endoscopies PEG tube placement and subsequent removal PEG tube placement- 06/28/16 EGD 07/18/16 PEG tube replacement 07/21/69 . Reported Medications Keflex (Cephalexin) 500 Mg Cap 500 Mg PO Q6H 7 Days Coumadin (Warfarin) 5 Mg Tab 5 Mg PO DAILY@1600 Keppra Liq (Levetiracetam) 500 Mg/5 Ml Soln 750 Mg PO/TUBE Q12HR PRN 30 Days Cardizem (Diltiazem HCl) 30 Mg Tab 30 Mg PEG QID Ferrous Sulfate Liq (Ferrous Sulfate) 300 Mg/5 Ml Soln 325 Mg PEG DAILY Phenytoin Liq (Phenytoin) 125 Mg/5 Ml Mira 200 Mg PEG Q8HR Calcium 600 Mg Tab 600 Mg PEG DAILY Vitamin D3 (Cholecalciferol) 400 Unit Tab 400 Units PO BID Lisinopril 20 Mg Tab 20 Mg PEG DAILY Clonidine (Clonidine HCl) 0.1 Mg Tab 0.1 Mg PEG BID . Current Medications Medications (Trade) Dose Ordered Sig/Sharmila Route Start Time Stop Time Status Last Admin Sodium Chloride 1,000 ml @ 75 mls/hr [id number] IV 04/07/17 20:00 (NS Flush) 2 ml UNSCH PRN IV FLUSH 04/07/17 20:00 (NS Flush) 2 ml BID IV FLUSH 04/07/17 21:00 (Tylenol) 650 mg Q4H PRN PO 04/07/17 20:00 (Zofran Inj) 4 mg Q6H PRN IVP 04/07/17 20:00 (Narcan Inj) 0.4 mg UNSCH PRN IV PUSH 04/07/17 20:00 (Catapres) 0.1 mg BID PEG 04/07/17 21:00 04/09/17 09:02 (Cardizem) 30 mg QID PEG 04/07/17 21:00 04/09/17 09:02 (Ferrous Sulfate Liq) 300 mg DAILY PEG 04/08/17 09:00 04/08/17 13:17 (Keppra Liq) 750 mg Q12HR PRN PEG 04/07/17 20:45 (Prinivil) 20 mg DAILY PEG 04/08/17 09:00 04/08/17 13:17 (Dilantin Liq) 200 mg Q8HR PEG 04/07/17 22:00 04/09/17 06:28 (Coumadin) 5 mg DAILY@1600 PO 04/08/17 16:00 Future Hold Family History Patient history children all alive and well. . Substance Use Tobacco: None reported Alcohol: None reported Prescription med abuse: None reported Illicits: None reported . Psychosocial History Patient is a long-term resident at [facility]. Patient was once and has been tight in 2006. Patient has adult 3 children, 2 sons and 1 daughter. . Spiritual/Cultural Factors Patient is Orthodoxy . Living Will: Never completed Health Care Surrogate: Never completed Durable Power of Supervisor Diagnostic: Copy in medical record Date completed: General power of mergers and acquisitions attorney completed on August 22, 2010. . Health Care Surrogate(s): Patient has never completed a living will or health care care surrogate. According to [place] statute, all 3 adult children would at it as her healthcare proxys. Daughter Cat Childress [phone]. According to Cat Childress, her older brother Herrera Childress is currently incarcerated and she does not know the whereabouts of her other brother Rasta Childress. . Documented care wishes: Patient never completed a living will. . Today's verbally stated goals: Patient is aphasic. . Family/friends goals: Patient`s daughter expects patient to be discharged back to correction. . Ethical and Legal Issues None identified at this time . Physical Exam Vital Signs Date Time Temp Pulse Resp B/P (MAP) Pulse Ox O2 Delivery O2 Flow Rate FiO2 04/09/17 08:07 98.3 110 20 137/93 (108) 95 04/09/17 03:54 98.1 111 18 144/76 (98) 96 04/09/17 00:20 98.0 111 18 148/70 (96) 95 04/08/17 21:50 99.5 113 18 142/67 (92) 97 04/08/17 15:51 98.3 103 19 144/69 (94) 97 04/08/17 11:45 98.3 107 18 177/85 (115) 97 Exam CONSTITUTIONAL/GENERAL: This is an adequately nourished patient, in no apparent distress, aphasic TUBES/LINES/DRAINS: PIV, PEG tube SKIN: No jaundice, rashes, or lesions. Ecchymoses on upper extremities. No wounds seen anteriorly. Skin temperature appropriate. Not diaphoretic. HEAD: Atraumatic. Normocephalic. EYES: Pupils equal and round and reactive. Extraocular motions intact. No scleral icterus. No injection or drainage. Fundi not examined. ENT: Hearing grossly normal. Nose without bleeding or purulent drainage. Dry lips NECK: Trachea midline. Supple, nontender. CARDIOVASCULAR: Regular rate and rhythm without murmurs, gallops, or rubs. No JVD. Peripheral pulses symmetric. RESPIRATORY/CHEST: Symmetric, unlabored respirations. Clear to auscultation. Breath sounds equal bilaterally. No wheezes, rales, or rhonchi. GASTROINTESTINAL: Abdomen soft, non-tender, nondistended. Guarding to her right side at PEG placement. Refusing to have site assessed. Bowel sounds present. GENITOURINARY: Without palpable bladder distension. Rosales catheter in place. MUSCULOSKELETAL: Extremities without clubbing, cyanosis, or edema. No joint tenderness or effusion noted. No calf tenderness. No mottling or clubbing. Right side flaccid, RUE contracted. NEUROLOGICAL: Awake and alert. Aphasic. Right side flaccid. Continuously moves left upper extremity and left lower extremity. PSYCHIATRIC: No obvious anxiety/depression. no apparent hallucinations or other psychotic thought process. . Diagnostic Tests Imaging Last Impressions Gastrostomy Tube Placement 04/08/17 0000 Signed Impressions: Service Date/Time: Saturday, April 08, 2017 10:55 - CONCLUSION: Uncomplicated unclogging of the patient's gastrostomy tube as above. Molina Chavis MD Procedures 04/08/17-PEG tube placement by IR . Patient/Family Conference Present at Family Conference: Patient's daughter. . Family Conference Location: Bedside Issues Discussed: * Palliative care role, purpose, approach * Additional medical, psychosocial, and spiritual history * Patients general health, functional status, and cognitive changes in the months leading up to the current hospitalization * Patient/family understanding of the current medical problems * Patient/family understanding of prognosis * Patients goals of care as best understood from advance directives and/or conversations and/or values * Current medical treatment options and benefits/burdens of those options * Likely scenarios comparing ongoing aggressive care with a transition to comfort measures only * Questions answered to the best of my ability * Palliative care contact information provided Assessment and Plan Disease Oriented Problem List: (1) Atrial fibrillation, chronic (2) Feeding tube obstruction (3) History of CVA with residual deficit (4) Seizure Symptom Scale: (1) Dysphagia (2) Debility Pertinent Non-Medical Issues Psychosocial:Patient is a long-term resident at [facility]. Patient was once and has been tight in 2006. Patient has adult 3 children, 2 sons and 1 daughter. Spiritual: Orthodoxy Legal:Patient never completed a living will and HCS- all 2 children will act as health care proxys. Ethical issues impacting care:None identified at this time. . Important Contacts Daughter Cat Childress [phone]. [phone] (home); [phone] ( other) Son-Rasta Childress Son-Herrera Childress According to Cat Monroe, her older brother Herrera Childress is currently incarcerated and she does not know the whereabouts of her other brother Rasta Childress. . Prognosis Mrs Childress is a 71 years old female with a past medical history of CVA with dysphagia, hypertension, atrial fibrillation on Coumadin, seizures, intracranial aneurysm bleed, liver cirrhosis, COPD, GERD, schizophrenia, dementia, hyperlipidemia who is a long-term resident at [facility]. Patient is bedbound and has right sided hemiparesis. She presented to the ER on 04/07/17 for evaluation of a clogged G-Tube. Patient has had multiple hospitalizations this year mainly for stroke, dysphagia, pneumonia and requiring intubation at one point. Given ongoing comorbidities, patient remains at risk for complications, deterioration and decline. . Code Status: Full Code Plan PLAN: Legal decision maker: Patient has a medical history of stroke with aphasia, dementia and schizoaffective disorder and is not able to make her own medical decisions now. Patient may never regain capacity to make her own medical decisions. Patient is and has 3 adult children. According to [place] Statute all 3 of patient`s will act as patient`s health care proxys. According to Cat Childress, her older brother Herrera Childress is currently incarcerated and she does not know the whereabouts of her other brother Rasta Childress. . Goals: Aggressive Addressed code status, discussed risks, benefits and limitations of CPR given patient's ongoing multiple comorbidities. Patient's daughter stated that she wants patient to be a full code and she wants aggressive treatment for her mother and does not want to hear hospice care mentioned in regards to her mother. Patient's daughter notified of patient's refusal of blood draw for laboratory work, she offered to stay at bedside and have patient`s blood drawn while she talks to patient. Patient nodded head for "yes" to allow [employer] dean to draw blood when they come. Patient`s daughter stated that patient has a tendency to say "no" for everything even if she does not mean it. CODE STATUS: Full code SYMPTOMS: * Dysphagia: Patient is a history of CVA. Patient NPO at correction. Only gets TF via PEG tube. Patient has a high risk for aspiration and will most likely not pass swallow evaluation. * Debility: Progressive. Patient is a long-term resident in a correction, totally bedbound and dependent for ADLs. Patient has right sided hemiparesis and aphasic. Right upper extremity contracted. Patient will most likely be able to participate in physical therapy. Recommending physical therapy since patient`s health care proxy wants aggressive treatment. Palliative care will continue to follow the patient during hospital course as condition evolves, to assist patient/decision-maker with understanding of their medical conditions, weighing benefits/burdens of treatment options, for clarification of goals of treatment. Additionally will assist with any symptoms of palliative concern Thank you for the opportunity to participate in the care of Ms. Childress. Attestation To help prompt me to consider important information that might be impacting today's encounter and assessment, information from prior notes written by myself or my colleagues may have been "brought forward" into today's note. My signature on this note, however, is an attestation that I personally performed the exam, history, and/or decision-making noted today, and, unless otherwise indicated, the interactions with patient, family, and staff as well as the review of records all occurred today. I also attest that the listed assessment and stated plan reflect my best clinical judgment today based on the combination of historical information, prior notes, and today's exam/ interactions. When time spent is documented, it refers only to time spent today by the signer, or if indicated, combined time spent today by collaborating physician/nurse practitioner. . Viviana Gallego Apr 09, 2017 10:29
[2017-04-09] MEDS: SODIUM CHLOR 0.45% 1000 ML INJ 1,000 ML IV SCH (11:59)
[2017-04-09 12:04] VITALS: BP 171/80; PULSE 111; RESP 18; TEMP 98.2; O2SAT 96
[2017-04-09 14:30] LABS: AUTOMATED NEUTROPHIL # 4.9 TH/MM3 (1.8-7.7); BASOPHIL % 0.5 % (0.0-2.0); EOSINOPHIL # 0.2 TH/MM3 (0-0.4); HEMATOCRIT 40.7 % (35.0-46.0); LYMPH % 22.5 % (9.0-44.0); LYMPHOCYTE # 1.7 TH/MM3 (1.0-4.8); MEAN CELL VOLUME 89.2 FL (80.0-100.0); MEAN CORPUSCULAR HEMOGLOBIN 29.6 PG (27.0-34.0); MEAN CORPUSCULAR HGB CONC 33.1 % (32.0-36.0); MONO % 8.2 % (0.0-8.0); NEUT % 65.8 % (16.0-70.0); PLATELET COUNT 93 TH/MM3 (150-450); RED BLOOD COUNT 4.56 MIL/MM3 (4.00-5.30); RED CELL DISTRIBUTION WIDTH 13.4 % (11.6-17.2); WHITE BLOOD COUNT 7.4 TH/MM3 (4.0-11.0)
[2017-04-09 14:32] LABS: INTERNATIONAL NORMALIZED RATIO 1.2 RATIO; PROTHROMBIN TIME - PATIENT 11.8 SEC (9.8-11.6)
[2017-04-09 14:35] LABS: HEMO FLAGS AUTO DIFF
[2017-04-09 14:42] LABS: BICARBONATE 28.2 MEQ/L (21.0-32.0); POTASSIUM 3.6 MEQ/L (3.5-5.1)
[2017-04-09 16:23] VITALS: BP 146/77; PULSE 109; RESP 21; TEMP 98.3; O2SAT 97
[2017-04-09 16:23] LABS: PLATELET ESTIMATE SMEAR LOW (NORMAL); PLATELET MORPHOLOGY ENLARGED (NORMAL); SCAN/DIFF AUTO DIFF CONFIRMED
--- NOTE | 2017-04-09 18:03 | HHI.PR ---
Subjective Remarks Patient sleeping, she refused to wake up, seen by palliative care, no acute issues overnight Finally she agreed to have blood drawn, which showed hypernatremia 151, INR 1.2 Objective Vitals Vital Signs Date Time Temp Pulse Resp B/P (MAP) Pulse Ox O2 Delivery O2 Flow Rate FiO2 04/09/17 16:23 98.3 109 21 146/77 (100) 97 04/09/17 12:04 98.2 111 18 171/80 (110) 96 04/09/17 08:07 98.3 110 20 137/93 (108) 95 04/09/17 03:54 98.1 111 18 144/76 (98) 96 04/09/17 00:20 98.0 111 18 148/70 (96) 95 04/08/17 21:50 99.5 113 18 142/67 (92) 97 I/O 04/08/17 04/08/17 04/08/17 04/09/17 04/09/17 04/09/17 07:00 15:00 23:00 07:00 15:00 23:00 Intake Total 500 ml Balance 500 ml Intake Tube Feeding 0 ml Other 500 ml # Voids 3 6 3 # Bowel Movements 0 1 Result Diagram: 04/09/17 1400 04/09/17 1400 Objective Remarks - GENERAL: This is a frail elderly lady which seems to be demented, sleepy SKIN: No rashes, warm and dry HEAD: Atraumatic. Normocephalic. EYES: Pupils equal round and reactive. Extraocular motions intact. No scleral icterus. ENT: Nose without bleeding, or drainage, Airway patent. NECK: Trachea midline. Supple CARDIOVASCULAR: Regular rate and rhythm without murmurs, gallops, or rubs. RESPIRATORY: Fair air entry bilaterally. No wheezes, rales, or rhonchi. GASTROINTESTINAL: Abdomen soft, non-tender, nondistended. Positive bowel sounds MUSCULOSKELETAL: Extremities without clubbing, cyanosis, or edema. Pedal pulses appreciated NEUROLOGICAL: Demented with some limbs contractions, sleepy today A/P Assessment and Plan 04/08: In light of patient continuing to refuse lab work, we will hold Coumadin , I will consult palliative care to help addressing goal of treatment, patient might be candidate for comfort care, Coumadin may not be a good option in light of her worsened mental status 04/09: Finally agreed to have blood drawn, which showed hypernatremia 151, KARTHIK> I will change her normal saline to half-normal saline with 20 a.m. EQ of KCl repeat BMP in a.m., appreciate palliative care working to get a hold of the family to address goal of treatment to avoid further readmission 1. Clogged G-tube Plan for G-tube exchange with interventional radiology in the morning 2. History of CVA with dementia Patient with residual dysphasia, nonverbal, level of dementia 3. Atrial fibrillation PT/INR unknown due to patient refusing lab work Per medical records, patient is on Coumadin Old Coumadin due to refusing INR lab work 4. Seizure disorder status post CVA Continue home medications Seizure precautions 5. Hypertension Continue home medications FEN NPO NS at 75 cc/hr Coumadin Discharge Planning Hopefully in a.m. back to [facility] Storm Álvarez MD Apr 09, 2017 18:03
[2017-04-09] MEDS ORDERED: 1/2 NS + KCL 20 MEQ INJ 1,000 ML IV SCH (19:00)
[2017-04-09 21:05] VITALS: BP 136/73; PULSE 118; RESP 22; TEMP 98.1; O2SAT 96
[2017-04-10 00:51] VITALS: BP 138/63; PULSE 104; RESP 20; TEMP 97.5; O2SAT 96
[2017-04-10 05:09] VITALS: BP 138/87; PULSE 110; RESP 20; TEMP 98.2; O2SAT 98
[2017-04-10] MEDS: PHENYTOIN SUSP 100 MG/4 ML CUP PEG SCH ×2 (05:24→14:00)
[2017-04-10 07:25] LABS: BICARBONATE 26.9 MEQ/L (21.0-32.0); POTASSIUM 3.1 MEQ/L (3.5-5.1)
[2017-04-10 08:52] VITALS: BP 136/71; PULSE 107; RESP 20; TEMP 96.2; O2SAT 97
[2017-04-10] MEDS: LISINOPRIL 20 MG TAB PEG SCH (09:42)
[2017-04-10] MEDS: FERROUS SULFATE 300 MG /5ML UDC PEG SCH (09:42)
[2017-04-10] MEDS: cloNIDine HCL 0.1 MG TAB PEG SCH (09:42)
[2017-04-10] MEDS: DILTIAZEM HCL 30 MG TAB PEG SCH ×2 (09:42→13:00)
[2017-04-10] MEDS: SODIUM CHLORIDE 0.9% FLUSH 10 ML FLUSH IV FLUSH SCH (09:42)
[2017-04-10 11:13] VITALS: BP 140/80; PULSE 103; RESP 18; TEMP 96; O2SAT 96
[2017-04-10] MEDS ORDERED: D5W + KCL 20 MEQ INJ 1,000 ML IV SCH (13:00)
[2017-04-10 15:58] VITALS: BP 139/76; PULSE 104; RESP 20; TEMP 96.6; O2SAT 96
--- NOTE | 2017-04-10 16:28 | HHI.PR ---
Subjective Remarks Patient is sleeping in bed, open eyes to tactile stimuli but go right back to sleep, Objective Vitals Vital Signs Date Time Temp Pulse Resp B/P (MAP) Pulse Ox O2 Delivery O2 Flow Rate FiO2 04/10/17 15:58 96.6 104 20 139/76 (97) 96 04/10/17 11:13 96.0 103 18 140/80 (100) 96 04/10/17 08:52 96.2 107 20 136/71 (92) 97 04/10/17 05:09 98.2 110 20 138/87 (104) 98 04/10/17 00:51 97.5 104 20 138/63 (88) 96 04/09/17 21:05 98.1 118 22 136/73 (94) 96 I/O 04/09/17 04/09/17 04/09/17 04/10/17 04/10/17 04/10/17 07:00 15:00 23:00 07:00 15:00 23:00 Intake Total 300 ml 950 ml Balance 300 ml 950 ml Intake IV Total 700 ml Tube Irrigant 300 ml 250 ml # Voids 5 4 2 # Bowel Movements 1 2 1 Result Diagram: 04/09/17 1400 04/10/17 0630 Objective Remarks - GENERAL: This is a frail elderly lady which seems to be demented, sleepy SKIN: No rashes, warm and dry HEAD: Atraumatic. Normocephalic. EYES: Pupils equal round and reactive. Extraocular motions intact. No scleral icterus. ENT: Nose without bleeding, or drainage, Airway patent. NECK: Trachea midline. Supple CARDIOVASCULAR: Regular rate and rhythm without murmurs, gallops, or rubs. RESPIRATORY: Fair air entry bilaterally. No wheezes, rales, or rhonchi. GASTROINTESTINAL: Abdomen soft, non-tender, nondistended. Positive bowel sounds MUSCULOSKELETAL: Extremities without clubbing, cyanosis, or edema. Pedal pulses appreciated NEUROLOGICAL: Demented with some limbs contractions, sleepy today A/P Assessment and Plan 04/08: In light of patient continuing to refuse lab work, we will hold Coumadin , I will consult palliative care to help addressing goal of treatment, patient might be candidate for comfort care, Coumadin may not be a good option in light of her worsened mental status 04/09: Finally agreed to have blood drawn, which showed hypernatremia 151, KARTHIK> I will change her normal saline to half-normal saline with 20 a.m. EQ of KCl repeat BMP in a.m., appreciate palliative care working to get a hold of the family to address goal of treatment to avoid further readmission 1. Clogged G-tube Plan for G-tube exchange with interventional radiology in the morning 2. History of CVA with dementia Patient with residual dysphasia, nonverbal, level of dementia 3. Atrial fibrillation PT/INR unknown due to patient refusing lab work Per medical records, patient is on Coumadin Old Coumadin due to refusing INR lab work 4. Seizure disorder status post CVA Continue home medications Seizure precautions 5. Hypertension Continue home medications FEN NPO NS at 75 cc/hr Coumadin Discharge Planning Hopefully in a.m. back to [facility] Storm Álvarez MD Apr 10, 2017 16:28
--- NOTE | 2017-04-10 19:55 | HHI.DS ---
Discharge Summary Admission Date Apr 07, 2017 at 19:18 Discharge Date: Apr 10, 2017 Admitting Diagnosis G tube malfunction (1) Gastrostomy tube dysfunction ICD Code: K94.23 - Gastrostomy malfunction (2) Shortness of breath ICD Code: R06.02 - Shortness of breath Status: Acute (3) Atrial fibrillation with rapid ventricular response ICD Code: I48.91 - Unspecified atrial fibrillation Status: Acute (4) Hypernatremia ICD Code: E87.0 - Hyperosmolality and hypernatremia Status: Acute (5) Debility ICD Code: R53.81 - Other malaise Status: Acute (6) CVA (cerebral vascular accident) ICD Code: I63.9 - Cerebral infarction, unspecified Status: Acute (7) Failure to thrive in adult ICD Code: R62.7 - Adult failure to thrive Status: Acute (8) Seizure ICD Code: R56.9 - Unspecified convulsions (9) History of CVA with residual deficit ICD Code: I69.30 - Unspecified sequelae of cerebral infarction Status: Acute Procedures G-tube exchange Brief History - From Admission 71-year-old female with a past medical history of CVA with resulting dysphasia, A. fib on Coumadin, hypertension and seizure disorder was brought to the emergency department for evaluation of a clot G-tube. The patient is nonverbal. G-tube exchange was attempted in the emergency department however they were unable to remove the old G-tube. The patient is admitted for observation with plans for G-tube exchange with interventional radiology in the morning. CBC/BMP: 04/09/17 1400 04/10/17 0630 Significant Findings Laboratory Tests Test 04/09/17 14:00 04/10/17 06:30 Platelet Count 93 TH/MM3 (150-450) Mean Platelet Volume 11.8 FL (7.0-11.0) Monocytes (%) (Auto) 8.2 % (0.0-8.0) Platelet Estimate LOW (NORMAL) Platelet Morphology Comment ENLARGED (NORMAL) Prothrombin Time 11.8 SEC (9.8-11.6) Blood Urea Nitrogen 25 MG/DL (7-18) 30 MG/DL (7-18) Creatinine 1.04 MG/DL (0.50-1.00) 1.11 MG/DL (0.50-1.00) Sodium Level 151 MEQ/L (136-145) 151 MEQ/L (136-145) Chloride Level 115 MEQ/L (98-107) 115 MEQ/L (98-107) Estimat Glomerular Filtration Rate 64 ML/MIN (>89) 59 ML/MIN (>89) Calcium Level 8.4 MG/DL (8.5-10.1) Potassium Level 3.1 MEQ/L (3.5-5.1) PE at Discharge - GENERAL: This is a frail elderly lady which seems to be demented, sleepy SKIN: No rashes, warm and dry HEAD: Atraumatic. Normocephalic. EYES: Pupils equal round and reactive. Extraocular motions intact. No scleral icterus. ENT: Nose without bleeding, or drainage, Airway patent. NECK: Trachea midline. Supple CARDIOVASCULAR: Regular rate and rhythm without murmurs, gallops, or rubs. RESPIRATORY: Fair air entry bilaterally. No wheezes, rales, or rhonchi. GASTROINTESTINAL: Abdomen soft, non-tender, nondistended. Positive bowel sounds MUSCULOSKELETAL: Extremities without clubbing, cyanosis, or edema. Pedal pulses appreciated NEUROLOGICAL: Demented with some limbs contractions, sleepy today Hospital Course 71 years old female who seems to be having level of dementia failure to thrive she had a G-tube which was clogged up, patient admitted for G- tube exchange which has been done by interventional radiology 151, started on half-normal saline with electrolyte management, patient has history of atrial fibrillation she has been refusing any lab work for electrolyte or INR, palliative care consulted to address goal of treatment, eventually patient agreed with lab work, her INR was 1.2 resume Coumadin however this seems to be need to be discussed with the family considering her mental status, chills have a history of seizure and CVA we continue her usual antiseizure medication. Today she seems to be stable, I switch her fluids to D5 water and to check her BMP again in 1-2 days, at the rehabilitation. [id number] encounter performed with the patient on discharge day, as well as physical exam, summary of hospitalization course and postdischarge plan has been D/W the patient. D/W nurse D/W registered nurse hh case manager. Discharge medications reviewed and printed and signed, post discharge follow up visit with PCP and other specialist as well as Brief hospital course and discharge summary has been placed. Pt Condition on Discharge: Stable Discharge Disposition: Discharge to SNF Discharge Time: > 30 minutes Discharge Instructions DIET: Follow Instructions for: Heart Healthy Diet Additional Diet Instructions: Encourage fluid/water oral intake Activities you can perform: See Additionl Instruction Other Activity Instructions: Per PT Rec New Orders: BASIC METABOLIC PROF - 2-3 Days PHENYTOIN (DILANTIN) - 2 Days PT/INR - 2-3 Days Continued Medications: Calcium (Calcium) 600 Mg Tab 600 MG PEG DAILY, TAB Cholecalciferol (Vitamin D3) 400 Unit Tab 400 UNITS PO BID for Nutritional Supplement, #1 TAB 0 Refills Clonidine (Clonidine) 0.1 Mg Tab 0.1 MG PEG BID for Blood Pressure Management, #60 TAB 0 Refills Diltiazem (Cardizem) 30 Mg Tab 30 MG PEG QID for Angina, #120 TAB 0 Refills Ferrous Sulfate Liq (Ferrous Sulfate Liq) 300 Mg/5 Ml Soln 325 MG PEG DAILY for Nutritional Supplement, #150 ML 0 Refills Levetiracetam Liq (Keppra Liq) 500 Mg/5 Ml Soln 750 MG PO/TUBE Q12HR PRN for Seizure Control for 30 Days, ML Lisinopril (Lisinopril) 20 Mg Tab 20 MG PEG DAILY, #30 TAB 0 Refills Phenytoin Liq (Phenytoin Liq) 125 Mg/5 Ml Mira 200 MG PEG Q8HR for Control Seizures, #237 ML 0 Refills Warfarin (Coumadin) 5 Mg Tab 5 MG PO DAILY@1600 for THROMBUS PREVENTION, #30 TAB 0 Refills Storm Álvarez MD Apr 10, 2017 19:55
== END 2017-04-10 17:55 | disposition home or self-care (01) ==
LOC: NEPC 13:34 → NEDA 19:18 → NEPHCDU 20:40
PROVIDERS: ADMIT Hospitalist; ATTEND Hospitalist
DX: K94.23 Gastrostomy malfunction (principal); R06.02 Shortness of breath; I48.91 Unspecified atrial fibrillation; E87.0 Hyperosmolality and hypernatremia; R62.7 Adult failure to thrive; I69.351 Hemiplegia and hemiparesis following cerebral infarction affecting right dominant side; R13.10 Dysphagia, unspecified; J44.9 Chronic obstructive pulmonary disease, unspecified; K74.60 Unspecified cirrhosis of liver; G47.30 Sleep apnea, unspecified; E78.5 Hyperlipidemia, unspecified; G40.909 Epilepsy, unspecified, not intractable, without status epilepticus; Z51.5 Encounter for palliative care; F03.90 Unspecified dementia, unspecified severity, without behavioral disturbance, psychotic disturbance, mood disturbance, and anxiety; Z79.01 Long term (current) use of anticoagulants; R47.02 Dysphasia; K21.9 Gastro-esophageal reflux disease without esophagitis; I11.0 Hypertensive heart disease with heart failure; I50.9 Heart failure, unspecified; Z85.3 Personal history of malignant neoplasm of breast
CPT/HCPCS: 49460; 76937; 80048; 85025; 85610; 96365; 99285; C1769; G0378; J3480; Q9967

== ENCOUNTER 2017-06-20 09:01 | Emergency (ER) | payer MEDICARE, OTHER ==
[~2017-06-20] VITALS: Ht 162.6 cm; Wt 80.0 kg
[2017-06-20 09:09] VITALS: BP 175/88; PULSE 89; RESP 16; TEMP 98.2; O2SAT 98
[2017-06-20 10:00] VITALS: PULSE 99; RESP 21; O2SAT 99
[2017-06-20 11:00] VITALS: BP 187/79; PULSE 90; RESP 16; O2SAT 100
--- NOTE | 2017-06-20 11:09 | PD ---
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 Report was that it was dislodged earlier today. Patient is unable to give any history. There were no other complaints at the time of her presentation. PFSH Past Medical History Hx Anticoagulant Therapy: Yes (COUMADIN ) Asthma: Yes Anxiety: Yes Depression: Yes Cancer: Yes (LEFT BREAST) Cardiovascular Problems: Yes (HTN, CHF) Congestive Heart Failure: Yes Cerebrovascular Accident: Yes (CVA -INTRACRANIAL BLEED) Diminished Hearing: No Gastrointestinal Disorders: Yes (DYSPHAGIA-- GI BLEED) GERD: Yes Genitourinary: Yes Hypertension: Yes Implanted Vascular Access Dvce: Yes Insomnia: Yes Neurologic: Yes (Intracerebral bleed/Dyshpagia, DEPRESSIVE DISORDER, DYSPHAGIA) Psychiatric: Yes (SCHIZOAFFECTIVE D/O) Respiratory: Yes (Pleural Effusion) Schizophrenia: Yes Seizures: Yes Sleep Apnea: Yes (INSOMNIA W/SLEEP APNEA) Triglycerides - High: Yes Tetanus Vaccination: Unknown Influenza Vaccination: Yes ?: Not Menopausal: Yes : 3 Para: 3 Past Surgical History Abdominal Surgery: Yes (PREVIOUS PEG TUBE PLACEMENT) Body Medical Devices: PEG TUBE Pacemaker: No Other Surgery: Yes Social History Alcohol Use: No Tobacco Use: No Substance Use: No Allergies-Medications (Allergen,Severity, Reaction): Coded Allergies: aspirin (Unverified Allergy, Severe, 06/20/17) *MDRO Multi-Drug Resistant Organism (Verified Adverse Reaction, Unknown, Cleared 05/2016, 06/20/17) MRSA (wound & sputum) - 01/2012 *Cleared - MRSA PCR (nares) NEGATIVE on 06/18/16 & 06/25/16* Reported Meds & Prescriptions Reported Meds & Active Scripts Active Coumadin (Warfarin) 5 Mg Tab 5 Mg PO DAILY@1600 Keppra Liq (Levetiracetam) 500 Mg/5 Ml Soln 750 Mg PO/TUBE Q12HR PRN 30 Days Reported Omeprazole-Sodium Bicarbonate Liq 20-1,680 Mg Pkt 1 Pkt PO DAILY Dissolve in water Lasix (Furosemide) 40 Mg Tab 40 Mg PO DAILY Phenytoin Liq (Phenytoin) 125 Mg/5 Ml Mira 200 Mg PO HS Cardizem (Diltiazem HCl) 30 Mg Tab 60 Mg PEG BID Ferrous Sulfate Liq (Ferrous Sulfate) 300 Mg/5 Ml Soln 325 Mg PEG DAILY Phenytoin Liq (Phenytoin) 125 Mg/5 Ml Mira 100 Mg PEG BID Vitamin D3 (Cholecalciferol) 400 Unit Tab 400 Units PO BID Lisinopril 20 Mg Tab 20 Mg PEG DAILY Clonidine (Clonidine HCl) 0.1 Mg Tab 0.1 Mg PEG BID Review of Systems ROS Limitations: Clinical Condition Except as stated in HPI: all other systems reviewed are Neg (Patient nonverbal and unable to give any history.) Physical Exam Narrative GENERAL: Well-nourished, well-developed patient, in no acute distress. SKIN: Focused skin assessment warm/dry. HEAD: Normocephalic. EYES: No scleral icterus. No injection or drainage. NECK: Supple, trachea midline. CARDIOVASCULAR: Regular rate and rhythm without murmurs, gallops, or rubs. RESPIRATORY: Breath sounds equal bilaterally. No accessory muscle use. GASTROINTESTINAL: Abdomen soft, non-tender, nondistended. There is a G-tube site that has some dried blood noted on it. There is no evidence of stomach contents being extravasated out. NEUROLOGICAL: Awake and alert. Patient is nonverbal. History of CVA. Data Data Last Documented VS Vital Signs Date Time Temp Pulse Resp B/P (MAP) Pulse Ox O2 Delivery O2 Flow Rate FiO2 06/20/17 18:01 97 21 151/69 (96) 98 Room Air 06/20/17 09:09 98.2 Orders Orders Wound Care (06/20/17 17:07) Wound Care (06/20/17 17:07) ^ Flush Tube (06/20/17 17:07) ^ Crush Medications (06/20/17 17:07) Gastrostomy Tube Placement (06/20/17 10:53) Iohexol 350 Inj (Omnipaque 350 Inj) (06/20/17 17:00) MDM Medical Decision Making Medical Screen Exam Complete: Yes Emergency Medical Condition: Yes Differential Diagnosis Dislodged G-tube Narrative Course 71-year-old female who presents after dislodged G-tube. Patient had it replaced via interventional radiology. Patient will be discharged back to the group home. Diagnosis Primary Impression: Dislodged gastrostomy tube Additional Impressions: Dysphagia History of cerebrovascular accident Additional Instructions: Use G-tube as previous. Disposition: 01 DISCHARGE HOME Condition: Stable Colton Bunch MD Jun 20, 2017 11:09
[2017-06-20] MEDS ORDERED: PHEN125S PO (11:13)
[2017-06-20] MEDS ORDERED: FURO1TAB60 PO (11:13)
[2017-06-20] MEDS ORDERED: OMEP1POW PO (11:13)
[2017-06-20 14:00] VITALS: PULSE 92; RESP 18; O2SAT 96
[2017-06-20 15:30] VITALS: BP 181/78; PULSE 91; RESP 18; O2SAT 97
[2017-06-20] MEDS ORDERED: IOHEXOL 350 MG/ML 50 ML BTL (for RAD DIAG) G-TUBE ONE (17:00)
--- NOTE | 2017-06-20 17:09 | PD.RAD ---
Post Procedure Progress Note Pre Procedure Diagnosis: (1) CVA (cerebral vascular accident) (2) Dysphagia Post Procedure Diagnosis: (1) Dysphagia (2) CVA (cerebral vascular accident) Procedure Date: Jun 20, 2017 Supervising Radiologist: Kye Gonzalez Proceduralist/Assist: RT Sravanthi(R) Anesthesia: Local Plan of Activity Patient to Unit: Nursing Unit Patient Condition: Fair See PACS Report for procedural detail/treatment Feeding Tube Gastrostomy Replacement Greenlandic: 18 Plan OK to use tube Kye Gonzalez MD Jun 20, 2017 17:09
--- NOTE | 2017-06-20 17:29 | RADRPT ---
EXAM DATE/TIME: 06/20/2017 18:02 [facility] COMPARISON: No previous studies available for comparison. INDICATIONS : Patient with a history of stroke, pulled G-tube out needs replaced. MEDICAL HISTORY : CVA with resulting dysphagia AFIB HTN COPD GERD Schizophrenia HLD Seizure disorder CHF Breast cancer SURGICAL HISTORY : PEG tube ENCOUNTER: Subsequent ACUITY: > 1 year PAIN SCORE: 0/10 FLUORO TIME: 0.8 minutes IMAGE SERIES: 1 CONTRAST: 10 cc Omnipaque (iohexol) 350 DEVICE(S): 1.) 18 Fr gastrostomy tube PROCEDURE : 1. Fluoroscopically guided gastrostomy tube placement. TECHNIQUE: The patient was placed supine on the fluoroscopy table. The left abdomen was prepped a s a sterile field. Under direct fluoroscopic guidance, a vessel dilator and guidewire combination was introduced through the existing gastrostomy tract site and positioned into the stomach. The tract wa s lubricated with lidocaine jelly. The tract was serially dilated and a peel-away sheath was introduc ed. A new 18 [place] gastrostomy feeding tube was introduced. The retention balloon was inflated. The collar was appropriately adjusted. Water-soluble contrast was injected and a digital radiograph obtai jacobo, this revealing good positioning of the tube with contrast in the stomach and no evidence of gonzalo toneal leakage of contrast. The patient tolerated the replacement well. CONCLUSION: Uncomplicated fluoroscopic guided gastrostomy tube replacement as above. Position ing confirmed. The tube can be used immediately. Kye Gonzalez MD on June 20, 2017 at 17:25 Board Certified Radiologist. This report was verified electronically.
[2017-06-20 18:01] VITALS: BP 151/69; PULSE 97; RESP 21; O2SAT 98
== END 2017-06-20 21:51 | disposition home or self-care (01) ==
LOC: NEPE 09:01
DX: Z43.1 Encounter for attention to gastrostomy (principal); R13.10 Dysphagia, unspecified; J45.909 Unspecified asthma, uncomplicated; F41.9 Anxiety disorder, unspecified; F32.9 Major depressive disorder, single episode, unspecified; I11.0 Hypertensive heart disease with heart failure; I50.9 Heart failure, unspecified; K21.9 Gastro-esophageal reflux disease without esophagitis; Z86.73 Personal history of transient ischemic attack (TIA), and cerebral infarction without residual deficits
CPT/HCPCS: 49440; 49452; 99284; C1894; Q9967

== ENCOUNTER 2017-09-02 01:15 | Inpatient (IN) | payer MEDICARE, OTHER ==
[~2017-09-02] VITALS: Ht 167.6 cm; Wt 84.0 kg
[2017-09-02] VITALS (11 sets, daily range): BP systolic 124–184; BP diastolic 59–88; PULSE 92–109; RESP 16–20; TEMP 98.2–99.6; O2SAT 93–98
[~2017-09-02 01:15] MED LIST changes: -CALC600T13 PEG; -CEPH-460 PO; +FURO1TAB60 PO; +OMEP1POW PO; +PHEN125S PO
[2017-09-02] MEDS ORDERED: SODIUM CHLORIDE 0.9% FLUSH 10 ML FLUSH IV FLUSH PRN ×2 (01:30→05:15)
[2017-09-02 02:53] LABS: BASOPHIL % 0.5 % (0.0-2.0); EOSINOPHIL # 0.3 TH/MM3 (0-0.4); EOSINOPHIL % 3.2 % (0.0-4.0); HEMATOCRIT 41.7 % (35.0-46.0); HEMOGLOBIN 14.1 GM/DL (11.6-15.3); LYMPH % 18.4 % (9.0-44.0); LYMPHOCYTE # 1.6 TH/MM3 (1.0-4.8); MEAN CELL VOLUME 84.7 FL (80.0-100.0); MEAN CORPUSCULAR HEMOGLOBIN 28.6 PG (27.0-34.0); MEAN CORPUSCULAR HGB CONC 33.8 % (32.0-36.0); MEAN PLATELET VOLUME 13.3 FL (7.0-11.0); MONO % 8.7 % (0.0-8.0); MONOCYTE # 0.8 TH/MM3 (0-0.9); NEUT % 69.2 % (16.0-70.0); PLATELET COUNT 69 TH/MM3 (150-450); RED BLOOD COUNT 4.93 MIL/MM3 (4.00-5.30); RED CELL DISTRIBUTION WIDTH 13.7 % (11.6-17.2); WHITE BLOOD COUNT 8.7 TH/MM3 (4.0-11.0)
[2017-09-02 03:08] LABS: ALT (GPT) 58 U/L (10-53); AST (GOT) 57 U/L (15-37); BICARBONATE 32.1 MEQ/L (21.0-32.0); BLOOD UREA NITROGEN 23 MG/DL (7-18); CALCIUM 8.8 MG/DL (8.5-10.1); CHLORIDE 109 MEQ/L (98-107); CREATININE 0.92 MG/DL (0.50-1.00); GLOMERULAR FILTRATION RATE 73 ML/MIN (>89); GLUCOSE,RANDOM 106 MG/DL (74-106); SODIUM (NA) 148 MEQ/L (136-145)
[2017-09-02 03:09] LABS: PROTHROMBIN TIME - PATIENT 30.3 SEC (9.8-11.6)
[2017-09-02 03:11] LABS: ALKALINE PHOSPHATASE 242 U/L (45-117); TOTAL BILIRUBIN ADULT 0.6 MG/DL (0.2-1.0)
--- NOTE | 2017-09-02 03:29 | PD ---
HPI Chief Complaint: GI Complaint Time Seen by Provider: 02:09 Travel History International Travel<30 days: No Contact w/Intl Traveler<30days: No Traveled to known affect area: No History of Present Illness HPI Patient 71-year-old female presents emergency department from longterm for evaluation of coffee-ground emesis 3 today. Entire history is obtained from the electronic medical record as well as her documentation. Patient is apparently on Coumadin has a history of stroke and vascular dementia. She is nearly nonverbal at baseline. She does have G-tube and apparently does most of her nutrition through enteric feedings according to her more. Is unclear as if she has ever had a colonoscopy before, unclear if this she has been taking her Coumadin. The patient does shake her head no when asked if she is hurting anywhere. PFSH Past Medical History Hx Anticoagulant Therapy: Yes (COUMADIN ) Asthma: Yes Anxiety: Yes Depression: Yes Cancer: Yes (LEFT BREAST) Cardiovascular Problems: Yes (HTN, CHF) Congestive Heart Failure: Yes Cerebrovascular Accident: Yes (CVA -INTRACRANIAL BLEED) Diminished Hearing: No Gastrointestinal Disorders: Yes (DYSPHAGIA-- GI BLEED) GERD: Yes Genitourinary: Yes Hypertension: Yes Implanted Vascular Access Dvce: Yes Insomnia: Yes Neurologic: Yes (Intracerebral bleed/Dyshpagia, DEPRESSIVE DISORDER, DYSPHAGIA) Psychiatric: Yes (SCHIZOAFFECTIVE D/O) Respiratory: Yes (Pleural Effusion) Schizophrenia: Yes Seizures: Yes Sleep Apnea: Yes (INSOMNIA W/SLEEP APNEA) Triglycerides - High: Yes ?: Not Menopausal: Yes : 3 Para: 3 Past Surgical History Abdominal Surgery: Yes (PREVIOUS PEG TUBE PLACEMENT) Body Medical Devices: PEG TUBE Pacemaker: No Other Surgery: Yes Social History Alcohol Use: No Tobacco Use: No Substance Use: No Allergies-Medications (Allergen,Severity, Reaction): Coded Allergies: aspirin (Unverified Allergy, Severe, 06/20/17) *MDRO Multi-Drug Resistant Organism (Verified Adverse Reaction, Unknown, Cleared 05/2016, 06/20/17) MRSA (wound & sputum) - 01/2012 *Cleared - MRSA PCR (nares) NEGATIVE on 06/18/16 & 06/25/16* Reported Meds & Prescriptions Reported Meds & Active Scripts Active Coumadin (Warfarin) 5 Mg Tab 5 Mg PO DAILY@1600 Keppra Liq (Levetiracetam) 500 Mg/5 Ml Soln 750 Mg PO/TUBE Q12HR PRN 30 Days Reported Omeprazole-Sodium Bicarbonate Liq 20-1,680 Mg Pkt 1 Pkt PO DAILY Dissolve in water Lasix (Furosemide) 40 Mg Tab 40 Mg PO DAILY Phenytoin Liq (Phenytoin) 125 Mg/5 Ml Mira 200 Mg PO HS Cardizem (Diltiazem HCl) 30 Mg Tab 60 Mg PEG BID Ferrous Sulfate Liq (Ferrous Sulfate) 300 Mg/5 Ml Soln 325 Mg PEG DAILY Phenytoin Liq (Phenytoin) 125 Mg/5 Ml Mira 100 Mg PEG BID Vitamin D3 (Cholecalciferol) 400 Unit Tab 400 Units PO BID Lisinopril 20 Mg Tab 20 Mg PEG DAILY Clonidine (Clonidine HCl) 0.1 Mg Tab 0.1 Mg PEG BID Review of Systems ROS Limitations: Altered Mental Status Physical Exam Exam Limitations: Altered Mental Status Narrative GENERAL: Well-developed well-nourished elderly female in no obvious distress SKIN: Focused skin assessment warm/dry. HEAD: Atraumatic. Normocephalic. EYES: Pupils equal and round. No scleral icterus. No injection or drainage. ENT: No nasal bleeding or discharge. Mucous membranes pink and moist. NECK: Trachea midline. No JVD. CARDIOVASCULAR: Regular rate and rhythm. No murmur appreciated. RESPIRATORY: No accessory muscle use. Clear to auscultation. Breath sounds equal bilaterally. GASTROINTESTINAL: Abdomen soft, non-tender, nondistended. Hepatic and splenic margins not palpable. No emesis is witnessed in the emergency department. MUSCULOSKELETAL: No obvious deformities. No clubbing. No cyanosis. No edema. NEUROLOGICAL: Awake and alert. No obvious cranial nerve deficits. Motor grossly within normal limits. Normal speech. Data Data Last Documented VS Vital Signs Date Time Temp Pulse Resp B/P (MAP) Pulse Ox O2 Delivery O2 Flow Rate FiO2 09/02/17 03:42 104 20 176/84 (114) 98 Room Air 09/02/17 01:35 99.6 Orders Orders Complete Blood Count With Diff (09/02/17 01:30) Comprehensive Metabolic Panel (09/02/17 01:30) Lipase (09/02/17 01:30) Prothrombin Time / Inr (Pt) (09/02/17 01:30) Act Partial Throm Time (Ptt) (09/02/17 01:30) Urinalysis - C+S If Indicated (09/02/17 01:30) Iv Access Insert/Monitor (09/02/17 01:30) Ecg Monitoring (09/02/17 01:30) Oximetry (09/02/17 01:30) Sodium Chloride 0.9% Flush (Ns Flush) (09/02/17 01:30) Type And Screen (09/02/17 02:09) Phenytoin (Dilantin) (09/02/17 02:09) Place In Observation (09/02/17 ) Vital Signs (Adult) Q4H (09/02/17 05:04) Sodium Chlor 0.45% 1000 Ml Inj (1/2 Ns 1 (09/02/17 05:04) Sodium Chloride 0.9% Flush (Ns Flush) (09/02/17 05:15) Sodium Chloride 0.9% Flush (Ns Flush) (09/02/17 09:00) Ondansetron Inj (Zofran Inj) (09/02/17 05:15) Comprehensive Metabolic Panel (09/03/17 06:00) Complete Blood Count With Diff (09/03/17 06:00) Case Management Consult (09/02/17 05:04) Scd Bilateral/Knee High MORALES.BID (09/02/17 05:04) Naloxone Inj (Narcan Inj) (09/02/17 05:15) Magnesium Hydroxide Liq (Milk Of Magnesi (09/02/17 05:15) Sennosides (Senokot) (09/02/17 05:15) Bisacodyl Supp (Dulcolax Supp) (09/02/17 05:15) Lactulose Liq (Lactulose Liq) (09/02/17 05:15) Admit Order (Ed Use Only) (09/02/17 ) Labs Laboratory Tests Test 09/02/17 02:00 White Blood Count 8.7 TH/MM3 Red Blood Count 4.93 MIL/MM3 Hemoglobin 14.1 GM/DL Hematocrit 41.7 % Mean Corpuscular Volume 84.7 FL Mean Corpuscular Hemoglobin 28.6 PG Mean Corpuscular Hemoglobin Concent 33.8 % Red Cell Distribution Width 13.7 % Platelet Count 69 TH/MM3 Mean Platelet Volume 13.3 FL Neutrophils (%) (Auto) 69.2 % Lymphocytes (%) (Auto) 18.4 % Monocytes (%) (Auto) 8.7 % Eosinophils (%) (Auto) 3.2 % Basophils (%) (Auto) 0.5 % Neutrophils # (Auto) 6.0 TH/MM3 Lymphocytes # (Auto) 1.6 TH/MM3 Monocytes # (Auto) 0.8 TH/MM3 Eosinophils # (Auto) 0.3 TH/MM3 Basophils # (Auto) 0.0 TH/MM3 CBC Comment AUTO DIFF Differential Total Cells Counted 100 Neutrophils % (Manual) 66 % Band Neutrophils % 7 % Lymphocytes % 16 % Monocytes % 9 % Eosinophils % 2 % Neutrophils # (Manual) 6.4 TH/MM3 Differential Comment FINAL DIFF MANUAL Platelet Estimate LOW Platelet Morphology Comment ENLARGED Red Cell Morphology Comment NORMAL Prothrombin Time 30.3 SEC Prothromb Time International Ratio 3.0 RATIO Activated Partial Thromboplast Time 43.9 SEC Blood Urea Nitrogen 23 MG/DL Creatinine 0.92 MG/DL Random Glucose 106 MG/DL Total Protein 8.0 GM/DL Albumin 3.0 GM/DL Calcium Level 8.8 MG/DL Alkaline Phosphatase 242 U/L Aspartate Amino Transf (AST/SGOT) 57 U/L Alanine Aminotransferase (ALT/SGPT) 58 U/L Total Bilirubin 0.6 MG/DL Sodium Level 148 MEQ/L Potassium Level 3.7 MEQ/L Chloride Level 109 MEQ/L Carbon Dioxide Level 32.1 MEQ/L Anion Gap 7 MEQ/L Estimat Glomerular Filtration Rate 73 ML/MIN Lipase 129 U/L MDM Medical Decision Making Medical Screen Exam Complete: Yes Emergency Medical Condition: Yes Differential Diagnosis Anemia, GI bleeding, anticoagulated state, electrolyte abnormality. Narrative Course Patient room to the emergency department, she is elderly appearing but does not be in any acute distress. Her INR is 3.0, hemoglobin is actually 14. There are few minor electrolyte abnormalities including a sodium 148, BUN and creatinine are within normal limits, there is some transaminitis. Given her history of anticoagulation and any ability of her to communicate, I have asked Dr. Pompa for an observation status for H&H trending he is agreeable peer Diagnosis Primary Impression: GI bleed Additional Impression: Hypernatremia Admitting Information Admitting Physician Requests: Observation Condition: Stable Antoni Leon MD September 02, 2017 03:29
[2017-09-02 03:35] LABS: BANDS 7 % (0-6); LYMPHOCYTES 16 % (9-44); MONOCYTES 9 % (0-8); NEUTROPHIL # MANUAL DIFF 6.4 TH/MM3 (1.8-7.7); POLYS (SEG NEUTROPHILS) 66 % (16-70)
[2017-09-02] MEDS ORDERED: MAGNESIUM HYDROXIDE SUSP 30 ML CUP PO PRN (05:15)
[2017-09-02] MEDS ORDERED: SENNOSIDES 8.6 MG TAB PO PRN (05:15)
[2017-09-02] MEDS ORDERED: LACTULOSE SYRUP 20 GM/30 ML CUP PO PRN (05:15)
[2017-09-02] MEDS ORDERED: levETIRAcetam 500 MG/5 ML UDC G-TUBE PRN (05:15)
[2017-09-02] MEDS ORDERED: NALOXONE HCL 0.4 MG/ML AMP IV PUSH PRN (05:15)
[2017-09-02] MEDS ORDERED: ONDANSETRON HCL 4 MG/2 ML VIAL IVP PRN (05:15)
[2017-09-02] MEDS ORDERED: BISACODYL 10 MG SUPP RECTAL PRN (05:15)
[2017-09-02] MEDS: SODIUM CHLOR 0.45% 1000 ML INJ 1,000 ML IV SCH (05:49)
[2017-09-02] MEDS: PANTOPRAZOLE SODIUM 40 MG VIAL IV PUSH SCH ×2 (05:49→18:50)
--- NOTE | 2017-09-02 06:03 | RADRPT ---
EXAM DATE/TIME: 09/02/2017 05:39 [facility] COMPARISON: No previous studies available for comparison. INDICATIONS : Nausea. MEDICAL HISTORY : Hypertension. Cardiovascular disease, Cirrhosis SURGICAL HISTORY : Peg tube. ENCOUNTER: Subsequent ACUITY: 2 days PAIN SCORE: 0/10 LOCATION: Bilateral chest FINDINGS: Supine view of the abdomen was performed. The abdominal bowel gas pattern is normal. No abnormal ma sses, calcifications, or organomegaly is seen. The osseous structures are unremarkable. G-tube in go od position in the distal stomach. Moderate amount stool throughout the colon CONCLUSION: Normal examination. G-tube in good position Luke Hartman MD on September 02, 2017 at 6:01 Board Certified Radiologist. This report was verified electronically.
[2017-09-02] MEDS ORDERED: [UNRECOGNIZED DRUG - OTHER] PO SCH (09:00)
[2017-09-02] MEDS: SODIUM CHLORIDE 0.9% FLUSH 10 ML FLUSH IV FLUSH SCH ×2 (09:00→19:50)
--- NOTE | 2017-09-02 09:40 | PD.CONS ---
HPI History of Present Illness This is a 71 year old aphasic female with hx stroke, cirrhosis who presented from her NH for coffee ground emesis. Reportedly she had 3-4 episodes coffeeground emesis. She denies any abd pain at this time. On coumadin. She has a g tube that was placed by IR 05/2017. She has been evaluated by our service in the past for a pancreatic cystic mass and anemia. It was determined at that time that she was not a candidate for EUS. She did have an EGD 06/2016 revealing duodenitis, nodular duodenal bulb mucosa, gastritis, esophagitis, hiatal hernia. Hx obtained from EMR. (Bette Roberts) PFSH Past Medical History CVA anxiety depression dysphagia HTN CHF COPD cirrhosis pancreatic cystic mass Past Surgical History g tube (Bette Roberts) Coded Allergies: aspirin (Unverified Allergy, Severe, 06/20/17) *MDRO Multi-Drug Resistant Organism (Verified Adverse Reaction, Unknown, Cleared 05/2016, 06/20/17) MRSA (wound & sputum) - 01/2012 *Cleared - MRSA PCR (nares) NEGATIVE on 06/18/16 & 06/25/16* Family History unable to obtain Social History no toxic habits per EMR (Bette Roberts) Review of Systems unable to obtain (Bette Roberts) GI Exam Vitals I&O Vital Signs Date Time Temp Pulse Resp B/P (MAP) Pulse Ox O2 Delivery O2 Flow Rate FiO2 09/02/17 07:24 98.7 105 18 160/77 (104) 96 09/02/17 03:42 104 20 176/84 (114) 98 Room Air 09/02/17 01:39 109 20 183/88 (119) 96 Room Air 09/02/17 01:35 99.6 109 18 183/88 (119) 96 Imaging Last Impressions Abdomen X-Ray 09/02/17 0000 Signed Impressions: Service Date/Time: Saturday, September 02, 2017 05:39 - CONCLUSION: Normal examination. G-tube in good position Luke Hartman MD Laboratory Test 09/02/17 02:00 White Blood Count 8.7 TH/MM3 Red Blood Count 4.93 MIL/MM3 Hemoglobin 14.1 GM/DL Hematocrit 41.7 % Mean Corpuscular Volume 84.7 FL Mean Corpuscular Hemoglobin 28.6 PG Mean Corpuscular Hemoglobin Concent 33.8 % Red Cell Distribution Width 13.7 % Platelet Count 69 TH/MM3 Mean Platelet Volume 13.3 FL Neutrophils (%) (Auto) 69.2 % Lymphocytes (%) (Auto) 18.4 % Monocytes (%) (Auto) 8.7 % Eosinophils (%) (Auto) 3.2 % Basophils (%) (Auto) 0.5 % Neutrophils # (Auto) 6.0 TH/MM3 Lymphocytes # (Auto) 1.6 TH/MM3 Monocytes # (Auto) 0.8 TH/MM3 Eosinophils # (Auto) 0.3 TH/MM3 Basophils # (Auto) 0.0 TH/MM3 CBC Comment AUTO DIFF Differential Total Cells Counted 100 Neutrophils % (Manual) 66 % Band Neutrophils % 7 % Lymphocytes % 16 % Monocytes % 9 % Eosinophils % 2 % Neutrophils # (Manual) 6.4 TH/MM3 Differential Comment FINAL DIFF MANUAL Platelet Estimate LOW Platelet Morphology Comment ENLARGED Red Cell Morphology Comment NORMAL Prothrombin Time 30.3 SEC Prothromb Time International Ratio 3.0 RATIO Activated Partial Thromboplast Time 43.9 SEC Blood Urea Nitrogen 23 MG/DL Creatinine 0.92 MG/DL Random Glucose 106 MG/DL Total Protein 8.0 GM/DL Albumin 3.0 GM/DL Calcium Level 8.8 MG/DL Alkaline Phosphatase 242 U/L Aspartate Amino Transf (AST/SGOT) 57 U/L Alanine Aminotransferase (ALT/SGPT) 58 U/L Total Bilirubin 0.6 MG/DL Sodium Level 148 MEQ/L Potassium Level 3.7 MEQ/L Chloride Level 109 MEQ/L Carbon Dioxide Level 32.1 MEQ/L Anion Gap 7 MEQ/L Estimat Glomerular Filtration Rate 73 ML/MIN Lipase 129 U/L Phenytoin (Dilantin) Level 27.0 MCG/ML Physical Examination HEENT: PERRL; normocephalic; atraumatic; no jaundice. +injection CHEST: CTA CARDIAC: tachy ABDOMEN: Soft, nondistended, nontender; no hepatosplenomegaly; bowel sounds are present in all four quadrants. g tube EXTREMITIES: No clubbing, cyanosis, or edema. SKIN: Normal; no rash; no jaundice. 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 no report of blood in stool, but limited hx. pt had EGD 06/2016 revealing duodenitis, nodular duodenal bulb mucosa, gastritis, esophagitis, hiatal hernia. HH WNL at this time. INR is 3, reportedly on coumadin. - elevated LFTs - hx cirrhosis per EMR. - thrombocytopenia - ? 2/2 cirrhosis. hx of this per EMR. PLAN - cont BID IV protonix - EGD when INR < 1.7 - attempted to contact daughter Cat Childress [phone], but no answer - consider holding coumadin - monitor labs - notify GI of active bleeding or drop in HH - further recs to follow pt seen by myself and Dr Rahman and this note is on his behalf (Bette Roberts) Physician Comments Seen and examined with [facility], no active bleeding at this time. EGD planned for tomorrow if consents obtained. NPO for now. Monitor labs. Thank you (Katerina Rahman MD) Bette Roberts September 02, 2017 09:40 Katerina Rahman MD September 02, 2017 16:58
[2017-09-02] MEDS: DILTIAZEM HCL 60 MG TAB PEG SCH ×2 (12:09→22:36)
[2017-09-02] MEDS: LISINOPRIL 20 MG TAB PEG SCH (12:09)
[2017-09-02] MEDS: PHENYTOIN SUSP 100 MG/4 ML CUP PEG SCH ×2 (12:09→14:00)
[2017-09-02] MEDS: cloNIDine HCL 0.1 MG TAB PEG SCH ×2 (12:10→22:36)
[2017-09-02] MEDS ORDERED: SODIUM CHLOR 0.9% 250 ML INJ 250 ML IV ONE (12:15)
[2017-09-02] MEDS ORDERED: FUROSEMIDE 20 MG/2 ML VIAL IV PUSH ONE (12:15)
[2017-09-02] MEDS: PHYTONADIONE 10 MG/ML VIAL SQ ONE ×2 (12:15→13:45)
[2017-09-02] MEDS ORDERED: PHYTONADIONE 5 MG TAB PO ONE (14:15)
--- NOTE | 2017-09-02 15:51 | HHI.HP ---
HPI Service [facility] Primary Care Physician Unknown Admission Diagnosis GI bleeding Diagnoses: (1) GI bleed (2) History of CVA with residual deficit Chief Complaint: Episode of coffee-ground hematemesis Travel History International Travel<30 Days: No Contact w/Intl Traveler <30 Da: No Traveled to Known Affected Are: No History of Present Illness 71-year-old female with history of CVA with residual neuro deficits was brought into the ED for evaluation of coffee-ground emesis. Although patient is alert, however she is unable to provide any history other than nodding, therefore history is obtained through review chart below: "Patient 71-year-old female presents emergency department from half-way for evaluation of coffee-ground emesis 3 today. Entire history is obtained from the electronic medical record as well as her documentation. Patient is apparently on Coumadin has a history of stroke and vascular dementia. She is nearly nonverbal at baseline. She does have G-tube and apparently does most of her nutrition through enteric feedings according to her more. Is unclear as if she has ever had a colonoscopy before, unclear if this she has been taking her Coumadin. The patient does shake her head no when asked if she is hurting anywhere." Review of Systems Except as stated in HPI: all other systems reviewed are Neg Past Family Social History Past Medical History CVA anxiety depression dysphagia HTN CHF COPD cirrhosis pancreatic cystic mass Past Surgical History g tube Reported Medications Coumadin (Warfarin) 5 Mg Tab 5 Mg PO DAILY@1600 Keppra Liq (Levetiracetam) 500 Mg/5 Ml Soln 750 Mg PO/TUBE Q12HR PRN 30 Days Omeprazole-Sodium Bicarbonate Liq 20-1,680 Mg Pkt 1 Pkt PO DAILY Dissolve in water Lasix (Furosemide) 40 Mg Tab 40 Mg PO DAILY Phenytoin Liq (Phenytoin) 125 Mg/5 Ml Mira 200 Mg PO HS Cardizem (Diltiazem HCl) 30 Mg Tab 60 Mg PEG BID Ferrous Sulfate Liq (Ferrous Sulfate) 300 Mg/5 Ml Soln 325 Mg PEG DAILY Phenytoin Liq (Phenytoin) 125 Mg/5 Ml Mira 100 Mg PEG BID Vitamin D3 (Cholecalciferol) 400 Unit Tab 400 Units PO BID Lisinopril 20 Mg Tab 20 Mg PEG DAILY Clonidine (Clonidine HCl) 0.1 Mg Tab 0.1 Mg PEG BID Allergies: Coded Allergies: aspirin (Unverified Allergy, Severe, 06/20/17) *MDRO Multi-Drug Resistant Organism (Verified Adverse Reaction, Unknown, Cleared 05/2016, 06/20/17) MRSA (wound & sputum) - 01/2012 *Cleared - MRSA PCR (nares) NEGATIVE on 06/18/16 & 06/25/16* Family History unable to obtain Social History no toxic habits per EMR Physical Exam Vital Signs Vital Signs Date Time Temp Pulse Resp B/P (MAP) Pulse Ox O2 Delivery O2 Flow Rate FiO2 09/02/17 15:31 132/71 (91) 09/02/17 15:26 98.7 95 16 184/80 (114) 96 09/02/17 14:16 98.8 93 18 124/59 98 09/02/17 13:54 98.9 92 18 140/61 95 09/02/17 11:02 98.3 105 16 143/72 (95) 98 09/02/17 07:24 98.7 105 18 160/77 (104) 96 09/02/17 03:42 104 20 176/84 (114) 98 Room Air 09/02/17 01:39 109 20 183/88 (119) 96 Room Air 09/02/17 01:35 99.6 109 18 183/88 (119) 96 Physical Exam GENERAL: This is a well-nourished, well-developed patient, in no apparent distress. SKIN: No rashes, ecchymoses or lesions. Cool and dry. HEAD: Atraumatic. Normocephalic. No temporal or scalp tenderness. EYES: Pupils equal round and reactive. Extraocular motions intact. No scleral icterus. No injection or drainage. ENT: Nose without bleeding, purulent drainage or septal hematoma. Throat without erythema, tonsillar hypertrophy or exudate. Uvula midline. Airway patent. NECK: Trachea midline. No JVD or lymphadenopathy. Supple, nontender, no meningeal signs. CARDIOVASCULAR: Regular rate and rhythm without murmurs, gallops, or rubs. RESPIRATORY: Clear to auscultation. Breath sounds equal bilaterally. No wheezes , rales, or rhonchi. GASTROINTESTINAL: Abdomen soft, non-tender, nondistended. No hepato-splenomegaly , or palpable masses. No guarding. MUSCULOSKELETAL: Extremities without clubbing, cyanosis, or edema. BLE contractures.RUE flaccid. Negative Homans sign bilaterally. NEUROLOGICAL: Awake and alert. Laboratory Laboratory Tests Test 09/02/17 02:00 White Blood Count 8.7 Red Blood Count 4.93 Hemoglobin 14.1 Hematocrit 41.7 Mean Corpuscular Volume 84.7 Mean Corpuscular Hemoglobin 28.6 Mean Corpuscular Hemoglobin Concent 33.8 Red Cell Distribution Width 13.7 Platelet Count 69 Mean Platelet Volume 13.3 Neutrophils (%) (Auto) 69.2 Lymphocytes (%) (Auto) 18.4 Monocytes (%) (Auto) 8.7 Eosinophils (%) (Auto) 3.2 Basophils (%) (Auto) 0.5 Neutrophils # (Auto) 6.0 Lymphocytes # (Auto) 1.6 Monocytes # (Auto) 0.8 Eosinophils # (Auto) 0.3 Basophils # (Auto) 0.0 CBC Comment AUTO DIFF Differential Total Cells Counted 100 Neutrophils % (Manual) 66 Band Neutrophils % 7 Lymphocytes % 16 Monocytes % 9 Eosinophils % 2 Neutrophils # (Manual) 6.4 Differential Comment FINAL DIFF MANUAL Platelet Estimate LOW Platelet Morphology Comment ENLARGED Red Cell Morphology Comment NORMAL Prothrombin Time 30.3 Prothromb Time International Ratio 3.0 Activated Partial Thromboplast Time 43.9 Blood Urea Nitrogen 23 Creatinine 0.92 Random Glucose 106 Total Protein 8.0 Albumin 3.0 Calcium Level 8.8 Alkaline Phosphatase 242 Aspartate Amino Transf (AST/SGOT) 57 Alanine Aminotransferase (ALT/SGPT) 58 Total Bilirubin 0.6 Sodium Level 148 Potassium Level 3.7 Chloride Level 109 Carbon Dioxide Level 32.1 Anion Gap 7 Estimat Glomerular Filtration Rate 73 Lipase 129 Phenytoin (Dilantin) Level 27.0 Result Diagram: 09/02/17 0200 09/02/17 0200 Imaging Last Impressions Abdomen X-Ray 09/02/17 0000 Signed Impressions: Service Date/Time: Saturday, September 02, 2017 05:39 - CONCLUSION: Normal examination. G-tube in good position Luke Hartman MD Septic Shock Reassessment Septic shock perfusion: reassessment completed Caprini VTE Risk Assessment Caprini VTE Risk Assessment: Mod/High Risk (score >= 2) VTE Pharm Contraindication: Active bleeding Caprini Risk Assessment Model Point Value = 1 Point Value = 2 Point Value = 3 Point Value = 5 Age 41-60 Minor surgery BMI > 25 kg/m2 Swollen legs Varicose veins or History of unexplained or recurrent spontaneous Oral contraceptives or hormone replacement Sepsis (< 1 month) Serious lung disease, including pneumonia (< 1 month) Abnormal pulmonary function Acute myocardial infarction Congestive heart failure (< 1 month) History of inflammatory bowel disease Medical patient at bed rest Age 61-74 Arthroscopic surgery Major open surgery (> 45 min) Laparoscopic surgery (> 45 min) Malignancy Confined to bed (> 72 hours) Immobilizing plaster cast Central venous access Age >= 75 History of VTE Family history of VTE Factor V Leiden Prothrombin [id number] Lupus anticoagulant Anticardiolipin antibodies Elevated serum homocysteine Heparin-induced thrombocytopenia Other congenital or acquired thrombophilia Stroke (< 1 month) Elective arthroplasty Hip, pelvis, or leg fracture Acute spinal cord injury (< 1 month) Prophylaxis Regimen Total Risk Factor Score Risk Level Prophylaxis Regimen 0-1 Low Early ambulation 2 Moderate Order ONE of the following: *Sequential Compression Device (SCD) *Heparin 5000 units SQ BID 3-4 Higher Order ONE of the following medications: *Heparin 5000 units SQ TID *Enoxaparin/Lovenox 40 mg SQ daily (WT < 150 kg, CrCl > 30 mL/min) *Enoxaparin/Lovenox 30 mg SQ daily (WT < 150 kg, CrCl > 10-29 mL/min) *Enoxaparin/Lovenox 30 mg SQ BID (WT < 150 kg, CrCl > 30 mL/min) AND/OR *Sequential Compression Device (SCD) 5 or more Highest Order ONE of the following medications: *Heparin 5000 units SQ TID (Preferred with Epidurals) *Enoxaparin/Lovenox 40 mg SQ daily (WT < 150 kg, CrCl > 30 mL/min) *Enoxaparin/Lovenox 30 mg SQ daily (WT < 150 kg, CrCl > 10-29 mL/min) *Enoxaparin/Lovenox 30 mg SQ BID (WT < 150 kg, CrCl > 30 mL/min) AND *Sequential Compression Device (SCD) Assessment and Plan Problem List: (1) GI bleed ICD Code: K92.2 - Gastrointestinal hemorrhage, unspecified Status: Acute (2) History of CVA with residual deficit ICD Code: I69.30 - Unspecified sequelae of cerebral infarction Status: Acute Assessment and Plan 71-year-old female with Reported coffee-ground emesis Upper GI bleed GI consultation pending for evaluation for possible EGD +/- Start PPI Serial H&H check Hold Coumadin; INR of 3.0, will give vitamin K and FFP History of seizure disorder, CVA and other chronic medical conditions Resume outpatient medications except Coumadin DVT prophylaxis: Bilateral SCDs Code Status Full code Physician Certification 2 Midnight Certification Type: Admission for Inpatient Services Order for Inpatient Services The services are ordered in accordance with Medicare regulations or non- Medicare payer requirements, as applicable. In the case of services not specified as inpatient-only, they are appropriately provided as inpatient services in accordance with the 2-midnight benchmark. Estimated LOS (days): 2 days is the estimated time the patient will need to remain in the hospital, assuming treatment plan goals are met and no additional complications. Post-Hospital Plan: Not yet determined Gideon Choudhury MD September 02, 2017 15:51
[2017-09-02 20:35] LABS: PROTHROMBIN TIME - PATIENT 20.5 SEC (9.8-11.6)
[2017-09-02] MEDS: PHENYTOIN SUSP 100 MG/4 ML CUP PO SCH (22:36)
[2017-09-03] MEDS: SODIUM CHLOR 0.45% 1000 ML INJ 1,000 ML IV SCH ×4 (01:04→20:21)
[2017-09-03 04:10] VITALS: BP 130/65; PULSE 105; RESP 18; TEMP 97.9; O2SAT 94
[2017-09-03] MEDS: PANTOPRAZOLE SODIUM 40 MG VIAL IV PUSH SCH ×2 (06:33→19:05)
[2017-09-03 08:30] VITALS: BP 181/84; PULSE 102; RESP 18; TEMP 98.4; O2SAT 97
[2017-09-03] MEDS ORDERED: CHLORHEXIDINE GLUCONATE 2 % 1 PACK (2 CLOTHS) TOPICAL PRN (08:30)
[2017-09-03] MEDS ORDERED: INSULIN HUMAN REGULAR 1,000 UNITS/10 ML VIAL SQ PRN (08:30)
[2017-09-03] MEDS ORDERED: METOPROLOL TARTRATE 25 MG TAB PO PRN (08:30)
[2017-09-03] MEDS ORDERED: SODIUM CHLORID 0.9% 500 ML IV PRN (08:30)
[2017-09-03] MEDS ORDERED: POVIDONE IODINE 5% (ANTISEPSIS KIT) 4 APPLICATIONS EACH NARE PRN (08:30)
[2017-09-03] MEDS ORDERED: LACTATED RINGER'S 1000 ML IV PRN (08:30)
[2017-09-03] MEDS: SODIUM CHLORIDE 0.9% FLUSH 10 ML FLUSH IV FLUSH SCH ×2 (09:00→20:23)
[2017-09-03] MEDS: DILTIAZEM HCL 60 MG TAB PEG SCH ×2 (09:00→20:22)
[2017-09-03] MEDS: PHENYTOIN SUSP 100 MG/4 ML CUP PEG SCH ×2 (09:00→16:45)
[2017-09-03] MEDS: LISINOPRIL 20 MG TAB PEG SCH ×2 (09:00→16:45)
[2017-09-03] MEDS: cloNIDine HCL 0.1 MG TAB PEG SCH ×2 (09:00→20:22)
--- NOTE | 2017-09-03 10:53 | HHI.PR ---
Subjective Remarks Follow-up GI bleed September 03, 2017-patient seen and examined, H&H remained stable and patient has had no GI bleeding episodes since admission. INR down to 2.0, however patient refused vitamin K despite only receiving 1 unit FFP yesterday Objective Vitals Vital Signs Date Time Temp Pulse Resp B/P (MAP) Pulse Ox O2 Delivery O2 Flow Rate FiO2 09/03/17 08:30 98.4 102 18 181/84 (116) 97 09/03/17 04:10 97.9 105 18 130/65 (86) 94 09/02/17 23:40 98.3 107 18 132/80 (97) 93 09/02/17 20:05 98.2 107 18 172/79 (110) 98 09/02/17 15:31 132/71 (91) 09/02/17 15:26 98.7 95 16 184/80 (114) 96 09/02/17 14:16 98.8 93 18 124/59 98 09/02/17 13:54 98.9 92 18 140/61 95 09/02/17 11:02 98.3 105 16 143/72 (95) 98 I/O 09/02/17 09/02/17 09/02/17 09/03/17 09/03/17 09/03/17 07:00 15:00 23:00 07:00 15:00 23:00 Intake Total 698 ml Balance 698 ml Intake IV Total 30 ml FFP 668 ml Result Diagram: 09/03/17 0052 09/02/17 0200 Imaging Last Impressions Abdomen X-Ray 09/02/17 0000 Signed Impressions: Service Date/Time: Saturday, September 02, 2017 05:39 - CONCLUSION: Normal examination. G-tube in good position Luke Hartman MD Objective Remarks GENERAL: NAD SKIN: Warm and dry. HEAD: Normocephalic. EYES: No scleral icterus. No injection or drainage. NECK: Supple, trachea midline. No JVD or lymphadenopathy. CARDIOVASCULAR: Regular rate and rhythm without murmurs, gallops, or rubs. RESPIRATORY: Breath sounds equal bilaterally. No accessory muscle use. GASTROINTESTINAL: Abdomen soft, non-tender, nondistended. MUSCULOSKELETAL: No cyanosis, or edema. Bilateral lower extremity contracture; right upper extremity weakness BACK: Nontender without obvious deformity. No CVA tenderness. A/P Problem List: (1) GI bleed ICD Code: K92.2 - Gastrointestinal hemorrhage, unspecified Status: Acute (2) History of CVA with residual deficit ICD Code: I69.30 - Unspecified sequelae of cerebral infarction Status: Acute Assessment and Plan 71-year-old female with Reported coffee-ground emesis Upper GI bleed GI input appreciated Continue PPI Serial H&H check Hold Coumadin; INR of 2.0, will give 1 unit FFP History of seizure disorder, CVA and other chronic medical conditions Continue outpatient medications except Coumadin DVT prophylaxis: Bilateral SCDs Currently n.p.o. however if no plan for upper endoscopy will resume tube feed Gideon Choudhury MD September 03, 2017 10:53
[2017-09-03] MEDS ORDERED: SUGAMMADEX SODIUM 200 MG/2 ML VIAL IV PUSH ONE ×2 (12:23→12:25)
--- NOTE | 2017-09-03 12:29 | EKG ---
Date Performed: 09/03/2017 Time Performed: 08:46:40 PTAGE: 71 years EKG: SINUS TACHYCARDIA WITH FIRST DEGREE AV BLOCK POSSIBLE LEFT ATRIAL ENLARGEMENT MODERATE T-WA VE ABNORMALITY, CONSIDER LATERAL ISCHEMIA ABNORMAL ECG PREVIOUS TRACING : 07/26/2016 08.10 DOCTOR: Luke Stanley Interpretating Date/Time 09/03/2017 12:28:54
--- NOTE | 2017-09-03 12:31 | GIPROC ---
[facility] [address] [facility] [employer]. 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 TOPICAL ANESTHETIC: CONSENT: The patient understands the risks and benefits of the procedure and understands that these risks include, but are not limited to: sedation, allergic reaction, infection, perforation and/or bleeding. Alternative means of evaluation and treatment include, among others: physical exam, x-rays, and/or surgical intervention. The patient elects to proceed with this endoscopic procedure. medical equipment was checked for proper function. Hand hygiene and appropriate measures for infection prevention was taken. After the risks, benefits and alternatives of the procedure were thoroughly explained, Informed consent was verified, confirmed and timeout was successfully executed by the treatment team. The patient was anesthetized with topical anesthesia and the Vaccsysax [id number] endoscope was introduced through the mouth and advanced to the second portion of the duodenum. Retroflexed views revealed a hiatal hernia The gastroscope was then slowly withdrawn and removed. ESOPHAGUS: There was LA Class C esophagitis noted. STOMACH: There was erythematous moderate gastritis in the gastric antrum. G tube in place. DUODENUM: Multiple polypoid shaped flat polyps ranging between 3-5mm in size were found in the 1st part of the duodenum. A biopsy was performed using cold forceps. Sample sent for histology. ADVERSE EVENTS: There were no complications. IMPRESSIONS: 1. There was LA Class C esophagitis noted 2. There was erythematous gastritis in the gastric antrum 3. G tube in place 4. Multiple flat polyps ranging between 3-5mm in size were found in the 1st part of the duodenum; biopsy was performed 5. Retroflexed views revealed a hiatal hernia RECOMMENDATIONS: 1. Await biopsy results. Biopsy results will not be ready for 7-10 days. If you don't hear from us in two weeks, call our office for biopsy results. 2. Anti-reflux regimen 3. Continue PPI PATIENT CONDITION: stable DISPOSITION: Inpatient REPEAT EXAM: Return as needed for EGD Katerina Rahman MD eSigned: Katerina Rahman MD 09/03/2017 12:30 PM cc: PATIENT NAME: [place] Florence Doreen MR#: [id number]
[2017-09-03] MEDS ORDERED: DO NOT ADM ANY ANTICOAGULANT DRUGS PRN (12:54)
[2017-09-03 15:15] VITALS: PULSE 105
[2017-09-03 16:09] VITALS: BP 177/81; PULSE 107; RESP 16; TEMP 98.7; O2SAT 96
[2017-09-03 19:58] VITALS: BP 151/76; PULSE 110; RESP 16; TEMP 99.3; O2SAT 95
[2017-09-03] MEDS: PHENYTOIN SUSP 100 MG/4 ML CUP PO SCH (20:22)
[2017-09-03 22:22] LABS: INTERNATIONAL NORMALIZED RATIO 2.4 RATIO; PROTHROMBIN TIME - PATIENT 24.4 SEC (9.8-11.6)
[2017-09-03 22:37] LABS: ALBUMIN 2.6 GM/DL (3.4-5.0); ALKALINE PHOSPHATASE 198 U/L (45-117); ALT (GPT) 40 U/L (10-53); AST (GOT) 43 U/L (15-37); BICARBONATE 27.1 MEQ/L (21.0-32.0); BLOOD UREA NITROGEN 13 MG/DL (7-18); CALCIUM 8.8 MG/DL (8.5-10.1); CHLORIDE 109 MEQ/L (98-107); CREATININE 0.82 MG/DL (0.50-1.00); GLOMERULAR FILTRATION RATE 84 ML/MIN (>89); GLUCOSE,RANDOM 109 MG/DL (74-106); SODIUM (NA) 146 MEQ/L (136-145); TOTAL PROTEIN 6.9 GM/DL (6.4-8.2)
[2017-09-03] MEDS ORDERED: ONDANSETRON ODT 4 MG TAB SL PRN (23:00)
[2017-09-03] MEDS ORDERED: POTASSIUM CHLORIDE 10 MEQ CONTROLLED RELEASE TAB PO ONE (23:00)
[2017-09-03] MEDS ORDERED: POTASSIUM CHLORIDE 25 MEQ EFFERVESCENT TAB NG ONE (23:15)
[2017-09-03] MEDS: 1/2 NS + KCL 20 MEQ INJ 1,000 ML IV SCH (23:15)
[2017-09-04] VITALS: BP 140/65; PULSE 100; PULSE 99; RESP 19; TEMP 98.6; O2SAT 97
[2017-09-04 04:00] VITALS: BP 156/74; PULSE 92; RESP 17; TEMP 98.3; O2SAT 98
[2017-09-04] MEDS: PANTOPRAZOLE SODIUM 40 MG VIAL IV PUSH SCH (06:24)
[2017-09-04 08:20] VITALS: BP 168/73; PULSE 95; RESP 20; TEMP 98.4; O2SAT 99
[2017-09-04] MEDS: SODIUM CHLORIDE 0.9% FLUSH 10 ML FLUSH IV FLUSH SCH (09:00)
[2017-09-04] MEDS: DILTIAZEM HCL 60 MG TAB PEG SCH (09:43)
[2017-09-04] MEDS: PHENYTOIN SUSP 100 MG/4 ML CUP PEG SCH (09:43)
[2017-09-04] MEDS: 1/2 NS + KCL 20 MEQ INJ 1,000 ML IV SCH (09:43)
[2017-09-04] MEDS: cloNIDine HCL 0.1 MG TAB PEG SCH (09:43)
[2017-09-04] MEDS: LISINOPRIL 20 MG TAB PEG SCH (09:43)
--- NOTE | 2017-09-04 10:07 | HHI.GIFU ---
Subjective Remarks Pt resting in bed. She is refusing her medications. "I'm dying." She refused abd exam. No obvious bleeding. (Bette Roberts) Objective Vitals I&O Vital Signs Date Time Temp Pulse Resp B/P (MAP) Pulse Ox O2 Delivery O2 Flow Rate FiO2 09/04/17 08:20 98.4 95 20 168/73 (104) 99 09/04/17 04:00 98.3 92 17 156/74 (101) 98 09/04/17 00:00 100 09/04/17 00:00 98.6 99 19 140/65 (90) 97 09/03/17 19:58 99.3 110 16 151/76 (101) 95 09/03/17 16:09 98.7 107 16 177/81 (113) 96 09/03/17 15:15 105 09/03/17 13:30 101 20 143/67 (92) 96 09/03/17 13:15 100 18 167/82 (110) 96 Room Air 09/03/17 13:00 97 15 163/82 (109) 100 Room Air 09/03/17 12:53 98.3 94 15 163/82 (109) 100 I/O 09/03/17 09/03/17 09/03/17 09/04/17 09/04/17 09/04/17 07:00 15:00 23:00 07:00 15:00 23:00 Intake Total 800 ml 480 ml 840 ml Output Total 300 ml Balance 500 ml 480 ml 840 ml Intake Oral 0 ml 840 ml Other 800 ml 480 ml Output Stool Total 300 ml # Voids 3 # Bowel Movements 1 Laboratory Laboratory Tests Test 09/03/17 21:04 Hemoglobin 12.3 Prothrombin Time 24.4 Prothromb Time International Ratio 2.4 Blood Urea Nitrogen 13 Creatinine 0.82 Random Glucose 109 Total Protein 6.9 Albumin 2.6 Calcium Level 8.8 Alkaline Phosphatase 198 Aspartate Amino Transf (AST/SGOT) 43 Alanine Aminotransferase (ALT/SGPT) 40 Total Bilirubin 1.0 Sodium Level 146 Potassium Level 2.7 Chloride Level 109 Carbon Dioxide Level 27.1 Anion Gap 10 Estimat Glomerular Filtration Rate 84 Imaging Last Impressions Abdomen X-Ray 09/02/17 0000 Signed Impressions: Service Date/Time: Saturday, September 02, 2017 05:39 - CONCLUSION: Normal examination. G-tube in good position Luke Hartman MD Physical Exam HEENT: PERRL; normocephalic; atraumatic; no jaundice. CHEST: CTA CARDIAC: RRR ABDOMEN: nondistended. further exam refused by pt EXTREMITIES: No clubbing, cyanosis, or edema. SKIN: Normal; no rash; no jaundice. 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 no report of blood in stool, but limited hx. pt had EGD 06/2016 revealing duodenitis, nodular duodenal bulb mucosa, gastritis, esophagitis, hiatal hernia. HH WNL at this time. INR is 3, reportedly on coumadin. - elevated LFTs - hx cirrhosis per EMR. - thrombocytopenia - ? 2/2 cirrhosis. hx of this per EMR. 09/04/17 s/p EGD found esophagitis, g tube in place, flat duodenal polyps, hiatal hernia. bx pending. no obvious bleeding. HH is relatively stable. PT is refusing medications and exam. d/w RN. PLAN - await bx - cont BID protonix - monitor labs - notify GI of active bleeding or drop in HH - supportive care - consider palliative care consult pt seen by myself and Dr Rahman and this note is on his behalf (Bette Roberts) Physician Comments Seen and examined with [facility], no active bleeding reported. Pt. refusing all care and meds. Palliative consult. Await biopsy results. Gi will sign off, reconsult PRN. Thank you (Katerina Rahman MD) Bette Roberts September 04, 2017 10:06 Katerina Rahman MD September 04, 2017 14:37
--- NOTE | 2017-09-04 10:21 | HHI.PR ---
Subjective Remarks Follow-up GI bleed September 03, 2017-patient seen and examined, H&H remained stable and patient has had no GI bleeding episodes since admission. INR down to 2.0, however patient refused vitamin K despite only receiving 1 unit FFP yesterday September 04, 2017-patient seen and examined, patient has EGD done yesterday, H&H remained stable. No acute event overnight. Patient refusing to take some of her meds. Tube feed was resumed and patient is tolerated it without any complication. Objective Vitals Vital Signs Date Time Temp Pulse Resp B/P (MAP) Pulse Ox O2 Delivery O2 Flow Rate FiO2 09/04/17 08:20 98.4 95 20 168/73 (104) 99 09/04/17 04:00 98.3 92 17 156/74 (101) 98 09/04/17 00:00 100 09/04/17 00:00 98.6 99 19 140/65 (90) 97 09/03/17 19:58 99.3 110 16 151/76 (101) 95 09/03/17 16:09 98.7 107 16 177/81 (113) 96 09/03/17 15:15 105 09/03/17 13:30 101 20 143/67 (92) 96 09/03/17 13:15 100 18 167/82 (110) 96 Room Air 09/03/17 13:00 97 15 163/82 (109) 100 Room Air 09/03/17 12:53 98.3 94 15 163/82 (109) 100 I/O 09/03/17 09/03/17 09/03/17 09/04/17 09/04/17 09/04/17 07:00 15:00 23:00 07:00 15:00 23:00 Intake Total 800 ml 480 ml 840 ml Output Total 300 ml Balance 500 ml 480 ml 840 ml Intake Oral 0 ml 840 ml Other 800 ml 480 ml Output Stool Total 300 ml # Voids 3 # Bowel Movements 1 Result Diagram: 09/03/17210309/03/172103 Imaging Last Impressions Abdomen X-Ray 09/02/17 0000 Signed Impressions: Service Date/Time: Saturday, September 02, 2017 05:39 - CONCLUSION: Normal examination. G-tube in good position Luke Hartman MD Objective Remarks GENERAL: NAD SKIN: Warm and dry. HEAD: Normocephalic. EYES: No scleral icterus. No injection or drainage. NECK: Supple, trachea midline. No JVD or lymphadenopathy. CARDIOVASCULAR: Regular rate and rhythm without murmurs, gallops, or rubs. RESPIRATORY: Breath sounds equal bilaterally. No accessory muscle use. GASTROINTESTINAL: Abdomen soft, non-tender, nondistended. PEG in place MUSCULOSKELETAL: No cyanosis, or edema. Bilateral lower extremity contracture; right upper extremity weakness BACK: Nontender without obvious deformity. No CVA tenderness. Procedures s/p EGD 1. There was LA Class C esophagitis noted 2. There was erythematous gastritis in the gastric antrum 3. G tube in place 4. Multiple flat polyps ranging between 3-5mm in size were found in the 1st part of the duodenum; biopsy was performed 5. Retroflexed views revealed a hiatal hernia A/P Problem List: (1) GI bleed ICD Code: K92.2 - Gastrointestinal hemorrhage, unspecified Status: Acute (2) History of CVA with residual deficit ICD Code: I69.30 - Unspecified sequelae of cerebral infarction Status: Acute Assessment and Plan 71-year-old female with Reported coffee-ground emesis-resolved Upper GI bleed-resolved GI input appreciated Continue PPI H&H remained stable Status post EGD September 03, 2017, report noted, pending biopsy Okay to resume Coumadin; History of seizure disorder, CVA and other chronic medical conditions Continue outpatient medications and resume Coumadin Tolerating tube feeds DVT prophylaxis: Bilateral SCDs Gideon Choudhury MD September 04, 2017 10:21
--- NOTE | 2017-09-04 10:33 | HHI.DS ---
Discharge Summary Admission Date September 02, 2017 at 05:52 Discharge Date: September 04, 2017 Admitting Diagnosis GI bleeding (1) GI bleed ICD Code: K92.2 - Gastrointestinal hemorrhage, unspecified Status: Acute (2) History of CVA with residual deficit ICD Code: I69.30 - Unspecified sequelae of cerebral infarction Status: Acute Procedures s/p EGD 1. There was LA Class C esophagitis noted 2. There was erythematous gastritis in the gastric antrum 3. G tube in place 4. Multiple flat polyps ranging between 3-5mm in size were found in the 1st part of the duodenum; biopsy was performed 5. Retroflexed views revealed a hiatal hernia Brief History - From Admission 71-year-old female with history of CVA with residual neuro deficits was brought into the ED for evaluation of coffee-ground emesis. Although patient is alert, however she is unable to provide any history other than nodding, therefore history is obtained through review chart below: "Patient 71-year-old female presents emergency department from alf for evaluation of coffee-ground emesis 3 today. Entire history is obtained from the electronic medical record as well as her documentation. Patient is apparently on Coumadin has a history of stroke and vascular dementia. She is nearly nonverbal at baseline. She does have G-tube and apparently does most of her nutrition through enteric feedings according to her more. Is unclear as if she has ever had a colonoscopy before, unclear if this she has been taking her Coumadin. The patient does shake her head no when asked if she is hurting anywhere." CBC/BMP: 09/03/17210309/03/172103 Significant Findings Laboratory Tests Test 09/02/17 02:00 09/02/17 19:36 09/03/17 00:52 09/03/17 21:04 Platelet Count 69 TH/MM3 (150-450) Mean Platelet Volume 13.3 FL (7.0-11.0) Monocytes (%) (Auto) 8.7 % (0.0-8.0) Band Neutrophils % 7 % (0-6) Monocytes % 9 % (0-8) Platelet Estimate LOW (NORMAL) Platelet Morphology Comment ENLARGED (NORMAL) Prothrombin Time 30.3 SEC (9.8-11.6) 20.5 SEC (9.8-11.6) 24.4 SEC (9.8-11.6) Activated Partial Thromboplast Time 43.9 SEC (24.3-30.1) Blood Urea Nitrogen 23 MG/DL (7-18) Albumin 3.0 GM/DL (3.4-5.0) 2.6 GM/DL (3.4-5.0) Alkaline Phosphatase 242 U/L (45-117) 198 U/L (45-117) Aspartate Amino Transf (AST/SGOT) 57 U/L (15-37) 43 U/L (15-37) Alanine Aminotransferase (ALT/SGPT) 58 U/L (10-53) Sodium Level 148 MEQ/L (136-145) 146 MEQ/L (136-145) Chloride Level 109 MEQ/L (98-107) 109 MEQ/L (98-107) Carbon Dioxide Level 32.1 MEQ/L (21.0-32.0) Estimat Glomerular Filtration Rate 73 ML/MIN (>89) 84 ML/MIN (>89) Phenytoin (Dilantin) Level 27.0 MCG/ML (10.0-20.0) Random Glucose 109 MG/DL (74-106) Potassium Level 2.7 MEQ/L (3.5-5.1) Test 09/04/17 09:51 Imaging Last Impressions Abdomen X-Ray 09/02/17 0000 Signed Impressions: Service Date/Time: Saturday, September 02, 2017 05:39 - CONCLUSION: Normal examination. G-tube in good position Luke Hartman MD PE at Discharge GENERAL: NAD SKIN: Warm and dry. HEAD: Normocephalic. EYES: No scleral icterus. No injection or drainage. NECK: Supple, trachea midline. No JVD or lymphadenopathy. CARDIOVASCULAR: Regular rate and rhythm without murmurs, gallops, or rubs. RESPIRATORY: Breath sounds equal bilaterally. No accessory muscle use. GASTROINTESTINAL: Abdomen soft, non-tender, nondistended. PEG in place MUSCULOSKELETAL: No cyanosis, or edema. Bilateral lower extremity contracture; right upper extremity weakness BACK: Nontender without obvious deformity. No CVA tenderness. Hospital Course While in hospital, patient was treated for: Reported coffee-ground emesis Upper GI bleed Gastroenterology was consulted and patient underwent EGD. However, prior to procedure she was given FFP and vitamin K. Coumadin was held and patient was started on PPI IV. Serial H&H was monitored and prior to discharge H&H remained stable. Will resume Coumadin. History of seizure disorder, CVA and other chronic medical conditions Initially, treatment for other chronic medical conditions were continued except Coumadin which was held. Coumadin will be resumed today. Patient was kept n.p.o. and IV fluid was initiated. Tube feed was resumed after procedure Hypokalemia Electrolyte abnormality with corrected accordingly with replacement. DVT prophylaxis: Bilateral SCDs Pt Condition on Discharge: Good Discharge Disposition: Discharge to SNF Discharge Time: > 30 minutes Discharge Instructions DIET: Follow Instructions for: On Tube Feeding Activities you can perform: Regular-No Restrictions Gideon Choudhury MD September 04, 2017 10:33
[2017-09-04 10:41] LABS: BICARBONATE 25.8 MEQ/L (21.0-32.0); CALCIUM 8.6 MG/DL (8.5-10.1); CREATININE 0.94 MG/DL (0.50-1.00); MAGNESIUM 1.8 MG/DL (1.5-2.5)
--- NOTE | 2017-09-04 11:41 | HHI.DCPOC ---
Discharge Care Plan Diagnosis: (1) History of CVA with residual deficit (2) Hypernatremia (3) GI bleed (4) Dysphagia (5) CVA (cerebral vascular accident) (6) Gastrostomy tube dysfunction Your Health Problems Are: Inflammation Swelling Bleeding Tendency Difficulty to Swallow Goals to Promote Your Health * To prevent worsening of your condition and complications * To maintain your health at the optimal level Directions to Meet Your Goals Take your medications as prescribed Follow your dietary instruction Follow activity as directed Keep your appointments as scheduled Take your immunizations and boosters as scheduled If your symptoms worsen call your PCP, if no PCP go to Urgent Care Center or Emergency Room Smoking is Dangerous to Your Health. Avoid second hand smoke Call the 24-hour hour crisis hotline for domestic abuse at [facility] September 04, 2017 11:41
[2017-09-04] MEDS ORDERED: POTASSIUM CHLORIDE 25 MEQ EFFERVESCENT TAB PO ONE (11:45)
== END 2017-09-04 16:35 | DRG 378 ==
LOC: NEPC 01:15 → NEDA 05:12 → OBSVTOIN 05:52 → NEPFCDU 06:10
PROVIDERS: ADMIT Hospitalist; ATTEND Hospitalist
PROC: 30233K1 Transfusion of Nonautologous Frozen Plasma into Peripheral Vein, Percutaneous Approach (ICD-10-PCS; principal; 2017-09-02)
PROC: 0DB98ZX Excision of Duodenum, Via Natural or Artificial Opening Endoscopic, Diagnostic (ICD-10-PCS; 2017-09-03)
DX: K92.0 Hematemesis (principal); E87.0 Hyperosmolality and hypernatremia; D69.59 Other secondary thrombocytopenia; I11.0 Hypertensive heart disease with heart failure; I50.9 Heart failure, unspecified; R13.10 Dysphagia, unspecified; K74.60 Unspecified cirrhosis of liver; F01.50 Vascular dementia, unspecified severity, without behavioral disturbance, psychotic disturbance, mood disturbance, and anxiety; I69.320 Aphasia following cerebral infarction; I69.311 Memory deficit following cerebral infarction; K31.7 Polyp of stomach and duodenum; K21.0 Gastro-esophageal reflux disease with esophagitis; K29.70 Gastritis, unspecified, without bleeding; K44.9 Diaphragmatic hernia without obstruction or gangrene; F41.9 Anxiety disorder, unspecified; F32.9 Major depressive disorder, single episode, unspecified; J44.9 Chronic obstructive pulmonary disease, unspecified; G40.909 Epilepsy, unspecified, not intractable, without status epilepticus; E87.6 Hypokalemia; F20.9 Schizophrenia, unspecified; G47.30 Sleep apnea, unspecified; Z79.01 Long term (current) use of anticoagulants; Z93.1 Gastrostomy status
CPT/HCPCS: 36430; 74018; 80048; 80053; 80185; 83690; 83735; 85007; 85018; 85027; 85610; 85730; 86850; 86900; 86901; 86927; 88305; 93005; C9113; J1940; J3430; J7050; P9017

== ENCOUNTER 2018-03-11 21:22 | Inpatient (IN) ==
--- NOTE | 2018-03-11 22:00 | ED ---
HPI General Chief complaint: Shortness of Breath/Dyspnea Stated complaint: SOB Time Seen by Provider: 03/11/18 21:27 Source: EMS, old records reviewed and other (SNF records) Mode of arrival: EMS Limitations: other (patient is aphasic) History of Present Illness HPI narrative: 72-year-old female presents to the emergency department via EMS for evaluation of shortness of breath. Patient comes from an SNF. She has history of CVA with right-sided hemiparesis, seizure disorder, hypertension, asthma, schizoaffective disorder, dementia, heart failure. According to EMS, they were called for shortness of breath. However, her oxygen saturations were 97% on oxygen. Appears to be at her baseline according to EMS. She is slightly tachycardic, 110-120. According to records, she is on Coumadin. Patient is unable to contribute any history or physical. According to SNF records, she is currently on Levaquin for congestion. Moderate severity. Patient does have G-tube to abdomen. Onset (ago): unknown Severity: moderate Relieving factors: none Exacerbating factors: none Related Data Home Medications Medication Instructions Recorded Confirmed ferrous sulfate 325 mg FEEDING TUBE TID 03/11/18 03/12/18 levetiracetam [Keppra] 100 mg FEEDING TUBE BID 03/11/18 03/12/18 levofloxacin [Levaquin] 500 mg FEEDING TUBE DAILY 03/11/18 03/12/18 lisinopril 20 mg FEEDING TUBE DAILY 03/11/18 03/12/18 metoprolol tartrate 50 mg FEEDING TUBE BID 03/11/18 03/12/18 mirtazapine 7.5 mg FEEDING TUBE DAILY 03/11/18 03/12/18 phenytoin [Dilantin Infatabs] 125 mg G-TUBE BID 03/11/18 03/11/18 pravastatin 20 mg FEEDING TUBE BID 03/11/18 03/12/18 famotidine 20 mg FEEDING TUBE BID 03/12/18 03/12/18 triamcinolone acetonide 1 applic TOPICAL BID 03/12/18 03/12/18 warfarin 7.5 mg FEEDING TUBE DIRECTED 03/12/18 03/12/18 warfarin 10 mg FEEDING TUBE QTUTHSA 03/12/18 03/12/18 Allergies Allergy/AdvReac Type Severity Reaction Status Date / Time aspirin Allergy Severe Hives Verified 03/12/18 02:28 *MDRO Multi-Drug Resistant AdvReac Unknown Cleared Uncoded 06/20/17 11:13 Organism 05/2016 Review of Systems ROS: all other systems reviewed are negative [facility] Medical History Medical History History of MRSA infection (Acute ~03/12/18) Agnosia (Acute) Angina pectoris, unspecified (Acute) Anxiety (Acute) CKD (chronic kidney disease) (Acute) CVA (cerebral vascular accident) (Acute) Dysphagia (Acute) Failure to thrive (Acute) GERD (gastroesophageal reflux disease) (Acute) Gastrointestinal tube present (Acute) HTN (hypertension) (Acute) Heart failure (Acute) Hypokalemia (Acute) IBS (irritable bowel syndrome) (Acute) Schizoaffective disorder (Acute) Vascular dementia with behavior disturbance (Acute) Surgical History Surgical History S/P percutaneous endoscopic gastrostomy (PEG) tube placement (Acute) Family History Family History Other Family history unknown Social History Social History Substance History: Unable to Obtain Second Hand Smoke Exposure: No Smoking Status: Unknown if ever smoked How Often Do You Have a Drink Containing Alcohol: Unable to Obtain Recent Travel in [facility] within the Last 8 Weeks: No Recent Out of Country Travel within the Last 8 Weeks: No Exam Narrative Exam Narrative: GENERAL: Well-nourished, well-developed female patient, afebrile. Patient is aphasic, unable to given any information SKIN: Focused skin assessment warm/dry. HEAD: Normocephalic. Atraumatic EYES: No scleral icterus. No injection or drainage. NECK: Supple, trachea midline. No JVD or lymphadenopathy. CARDIOVASCULAR: Regular rate and rhythm without murmurs, gallops, or rubs. RESPIRATORY: Breath sounds equal bilaterally. No accessory muscle use. GASTROINTESTINAL: Abdomen soft, non-tender, nondistended. MUSCULOSKELETAL: No cyanosis, or edema. BACK: Nontender without obvious deformity. No CVA tenderness. Course Initial Documented Vital Signs Temperature 98.9 F 03/11/18 22:18 Pulse Rate 120 H 03/11/18 22:18 Respiratory Rate 20 03/11/18 22:18 Blood Pressure 158/69 H 03/11/18 22:18 Pulse Oximetry 99 03/11/18 22:18 Last Documented Vital Signs Temperature 98.6 F 03/13/18 00:00 Pulse Rate 100 H 03/13/18 04:00 Respiratory Rate 24 11/16/18 04:00 Blood Pressure 120/51 L 03/13/18 04:00 Pulse Oximetry 100 03/13/18 04:00 Medical Decision Making MDM Narrative Medical decision making narrative: 4-year-old female presents to the emergency department for evaluation of shortness of breath per half-way staff. Unable to contribute to history or physical. IV access is obtained. EKG, CBC, CMP, magnesium, CK, troponin, BNP. PTT, PT/INR, phenytoin level are ordered and pending. Chest x-ray shows There is a new area of parenchymal consolidation in the medial right lower lobe. Dr. Yoon will resume care of patient. Patient identified to have temperature elevation administered acetaminophen 650 mg suppository also administered 500 cc bolus of normal saline chest x-ray shows a right middle lobe infiltrate lactic acid per sepsis protocol ordered along with blood cultures x2 prior to receiving Zosyn 4.5 g and vancomycin 1 g IV piggyback Discussed with Dr Sadler for admission; aware cmp pending CMP resulted marked hypernatremia and acute renal insufficiency; stat redraw obtained repeat lab confirms hypernatremia and acute renal insufficiency and patient administered iv fluids and brewery representative called case discussed and Dr Ambrocio will accept patient to the ICU to his service. Medical Screen Exam Complete: Yes Emergency Medical Condition: Yes Lab Data Result diagrams: 03/13/18 03:48 03/13/18 03:48 Lab Results 03/11/18 03/11/18 03/11/18 Range/Units 21:58 21:58 21:58 WBC 12.0 H (4.0-11.0) th/mm3 RBC 4.10 (4.00-5.30) mil/mm3 Hgb 11.7 (11.6-15.3) gm/dL POC Hgb (Calc) Hct 39.3 (35.0-46.0) % POC Hct MCV 95.9 (80.0-100.0) fL MCH 28.5 (27.0-34.0) pg MCHC 29.7 L (32.0-36.0) % RDW 16.9 (11.6-17.2) % Plt Count 50 L (150-450) th/mm3 MPV 13.1 H (7.0-11.0) fL Prelim Diff (Auto) Slide review pending Neut % (Auto) 68.9 (16.0-70.0) % Lymph % (Auto) 22.6 (9.0-44.0) % [place] % (Auto) 7.5 (0.0-8.0) % Eos % (Auto) 1.0 (0.0-4.0) % Baso % (Auto) 0.0 (0.0-2.0) % Neut # (Auto) 8.2 H (1.8-7.7) th/mm3 Lymph # (Auto) 2.7 (1.0-4.8) th/mm3 [place] # (Auto) 0.9 (0.0-0.9) th/mm3 Eos # (Auto) 0.1 (0.0-0.4) th/mm3 Baso # (Auto) 0.0 (0.0-0.2) th/mm3 WBC Differential Manual diff final Seg Neuts % (Manual) 42 (16-70) % Band Neuts % (Manual) 27 H (0-6) % Lymphocytes % (Manual) 24 (9-44) % Monocytes % (Manual) 7 (0-8) % Abs Neuts (Manual) 8.3 H (1.8-7.7) th/mm3 Differential Comment . Toxic Granulation 2+ H (None) Platelet Estimate Low L (Normal) Platelet Morphology Normal (Normal) PT 33.1 H (9.8-11.6) sec INR 3.3 Ratio APTT 50.7 H (23.4-31.7) sec POC Sodium Sodium (136-145) meq/L POC Potassium Potassium (3.5-5.1) meq/L POC Chloride Chloride (98-107) meq/L Carbon Dioxide (21.0-32.0) meq/L Anion Gap (5-15) meq/L POC BUN BUN (7-18) mg/dL Creatinine (0.50-1.00) mg/dL POC Creatinine Estimated GFR (>89) mL/min POC Glucose Random Glucose (74-106) mg/dL Lactic Acid (0.4-2.0) mmol/L Calcium (8.5-10.1) mg/dL Prot Corrected Calcium (8.5-10.1) mg/dL Phosphorus (2.5-4.9) mg/dL Magnesium (1.5-2.5) mg/dL Total Bilirubin (0.2-1.0) mg/dL AST (15-37) U/L ALT (10-53) U/L Alkaline Phosphatase (45-117) U/L Total Creatine Kinase (26-192) U/L CK-MB (CK-2) (0.5-3.6) ng/mL CK-MB (CK-2) % (0.0-4.0) % Troponin I (0.02-0.05) ng/mL B-Natriuretic Peptide 216 H (0-100) pg/mL Total Protein (6.4-8.2) g/dL Albumin (3.4-5.0) g/dL Urine Color (Yellw/Straw) Urine Clarity (Clear) Urine pH (5.0-8.5) Ur Specific [place] (1.002-1.035) Urine Protein (Neg-Trace) mg/dL Urine Glucose (UA) (Negative) mg/dL Urine Ketones (Negative) mg/dL Urine Occult Blood (Negative) Urine Nitrate (Negative) Urine Bilirubin (Negative) Urine Urobilinogen (Less than 2) mg/dL Ur Leukocyte Esterase (Negative) Urine RBC (0-3) /hpf Urine WBC (0-5) /hpf Ur Squamous Epith Cells (0-5) /hpf Hyaline Casts (0-3) /lpf Urine Mucus (Occasional) /lpf Micro UA Comment Ur Microscopic Review Urine Culture Comments Nasal Screen MRSA (PCR) (Negative) Phenytoin (10.0-20.0) mcg/mL 03/12/18 03/12/18 03/12/18 Range/Units 00:28 00:56 01:49 WBC (4.0-11.0) th/mm3 RBC (4.00-5.30) mil/mm3 Hgb (11.6-15.3) gm/dL POC Hgb (Calc) Hct (35.0-46.0) % POC Hct MCV (80.0-100.0) fL MCH (27.0-34.0) pg MCHC (32.0-36.0) % RDW (11.6-17.2) % Plt Count (150-450) th/mm3 MPV (7.0-11.0) fL Prelim Diff (Auto) Neut % (Auto) (16.0-70.0) % Lymph % (Auto) (9.0-44.0) % [place] % (Auto) (0.0-8.0) % Eos % (Auto) (0.0-4.0) % Baso % (Auto) (0.0-2.0) % Neut # (Auto) (1.8-7.7) th/mm3 Lymph # (Auto) (1.0-4.8) th/mm3 [place] # (Auto) (0.0-0.9) th/mm3 Eos # (Auto) (0.0-0.4) th/mm3 Baso # (Auto) (0.0-0.2) th/mm3 WBC Differential Seg Neuts % (Manual) (16-70) % Band Neuts % (Manual) (0-6) % Lymphocytes % (Manual) (9-44) % Monocytes % (Manual) (0-8) % Abs Neuts (Manual) (1.8-7.7) th/mm3 Differential Comment Toxic Granulation (None) Platelet Estimate (Normal) Platelet Morphology (Normal) PT (9.8-11.6) sec INR Ratio APTT (23.4-31.7) sec POC Sodium Sodium 178 H* (136-145) meq/L POC Potassium Potassium 3.7 (3.5-5.1) meq/L POC Chloride Chloride 144 H (98-107) meq/L Carbon Dioxide 28.2 (21.0-32.0) meq/L Anion Gap 6 (5-15) meq/L POC BUN BUN 67 H (7-18) mg/dL Creatinine 2.68 H (0.50-1.00) mg/dL POC Creatinine Estimated GFR 21 L (>89) mL/min POC Glucose Random Glucose 173 H (74-106) mg/dL Lactic Acid 2.5 H (0.4-2.0) mmol/L Calcium 7.5 L (8.5-10.1) mg/dL Prot Corrected Calcium (8.5-10.1) mg/dL Phosphorus (2.5-4.9) mg/dL Magnesium 4.1 H (1.5-2.5) mg/dL Total Bilirubin 1.1 H (0.2-1.0) mg/dL AST 30 (15-37) U/L ALT 31 (10-53) U/L Alkaline Phosphatase 149 H (45-117) U/L Total Creatine Kinase 758 H (26-192) U/L CK-MB (CK-2) 1.1 (0.5-3.6) ng/mL CK-MB (CK-2) % 0.1 (0.0-4.0) % Troponin I 0.17 H (0.02-0.05) ng/mL B-Natriuretic Peptide (0-100) pg/mL Total Protein 6.8 (6.4-8.2) g/dL Albumin 2.1 L (3.4-5.0) g/dL Urine Color Yellow (Yellw/Straw) Urine Clarity Hazy H (Clear) Urine pH 6.0 (5.0-8.5) Ur Specific [place] 1.018 (1.002-1.035) Urine Protein 30 H (Neg-Trace) mg/dL Urine Glucose (UA) Negative (Negative) mg/dL Urine Ketones Negative (Negative) mg/dL Urine Occult Blood Negative (Negative) Urine Nitrate Negative (Negative) Urine Bilirubin Negative (Negative) Urine Urobilinogen 2.0 H (Less than 2) mg/dL Ur Leukocyte Esterase Negative (Negative) Urine RBC 1 (0-3) /hpf Urine WBC 2 (0-5) /hpf Ur Squamous Epith Cells 1 (0-5) /hpf Hyaline Casts 4 (0-3) /lpf Urine Mucus Few H (Occasional) /lpf Micro UA Comment Cath-culture not ind Ur Microscopic Review Not Reportable Urine Culture Comments Cath-cult not ind Nasal Screen MRSA (PCR) (Negative) Phenytoin 8.3 L (10.0-20.0) mcg/mL 03/12/18 03/12/18 03/12/18 Range/Units 03:09 03:55 07:00 WBC (4.0-11.0) th/mm3 RBC (4.00-5.30) mil/mm3 Hgb (11.6-15.3) gm/dL POC Hgb (Calc) Cancelled Hct (35.0-46.0) % POC Hct Cancelled MCV (80.0-100.0) fL MCH (27.0-34.0) pg MCHC (32.0-36.0) % RDW (11.6-17.2) % Plt Count (150-450) th/mm3 MPV (7.0-11.0) fL Prelim Diff (Auto) Neut % (Auto) (16.0-70.0) % Lymph % (Auto) (9.0-44.0) % [place] % (Auto) (0.0-8.0) % Eos % (Auto) (0.0-4.0) % Baso % (Auto) (0.0-2.0) % Neut # (Auto) (1.8-7.7) th/mm3 Lymph # (Auto) (1.0-4.8) th/mm3 [place] # (Auto) (0.0-0.9) th/mm3 Eos # (Auto) (0.0-0.4) th/mm3 Baso # (Auto) (0.0-0.2) th/mm3 WBC Differential Seg Neuts % (Manual) (16-70) % Band Neuts % (Manual) (0-6) % Lymphocytes % (Manual) (9-44) % Monocytes % (Manual) (0-8) % Abs Neuts (Manual) (1.8-7.7) th/mm3 Differential Comment Toxic Granulation (None) Platelet Estimate (Normal) Platelet Morphology (Normal) PT (9.8-11.6) sec INR Ratio APTT (23.4-31.7) sec POC Sodium Cancelled Sodium 180 H* (136-145) meq/L POC Potassium Cancelled Potassium 3.1 L (3.5-5.1) meq/L POC Chloride Cancelled Chloride 147 H (98-107) meq/L Carbon Dioxide 26.8 (21.0-32.0) meq/L Anion Gap 6 (5-15) meq/L POC BUN Cancelled BUN 64 H (7-18) mg/dL Creatinine 2.58 H (0.50-1.00) mg/dL POC Creatinine Cancelled Estimated GFR 22 L (>89) mL/min POC Glucose Cancelled Random Glucose 160 H (74-106) mg/dL Lactic Acid 3.1 H (0.4-2.0) mmol/L Calcium 7.4 L* (8.5-10.1) mg/dL Prot Corrected Calcium 7.9 L (8.5-10.1) mg/dL Phosphorus (2.5-4.9) mg/dL Magnesium (1.5-2.5) mg/dL Total Bilirubin (0.2-1.0) mg/dL AST (15-37) U/L ALT (10-53) U/L Alkaline Phosphatase (45-117) U/L Total Creatine Kinase (26-192) U/L CK-MB (CK-2) (0.5-3.6) ng/mL CK-MB (CK-2) % (0.0-4.0) % Troponin I (0.02-0.05) ng/mL B-Natriuretic Peptide (0-100) pg/mL Total Protein 6.2 L D (6.4-8.2) g/dL Albumin (3.4-5.0) g/dL Urine Color (Yellw/Straw) Urine Clarity (Clear) Urine pH (5.0-8.5) Ur Specific [place] (1.002-1.035) Urine Protein (Neg-Trace) mg/dL Urine Glucose (UA) (Negative) mg/dL Urine Ketones (Negative) mg/dL Urine Occult Blood (Negative) Urine Nitrate (Negative) Urine Bilirubin (Negative) Urine Urobilinogen (Less than 2) mg/dL Ur Leukocyte Esterase (Negative) Urine RBC (0-3) /hpf Urine WBC (0-5) /hpf Ur Squamous Epith Cells (0-5) /hpf Hyaline Casts (0-3) /lpf Urine Mucus (Occasional) /lpf Micro UA Comment Ur Microscopic Review Urine Culture Comments Nasal Screen MRSA (PCR) Mrsa detected (Negative) Phenytoin (10.0-20.0) mcg/mL 03/13/18 03/13/18 03/13/18 Range/Units 03:48 03:48 03:48 WBC 7.0 (4.0-11.0) th/mm3 RBC 3.18 L (4.00-5.30) mil/mm3 Hgb 9.5 L D (11.6-15.3) gm/dL POC Hgb (Calc) Hct 30.6 L (35.0-46.0) % POC Hct MCV 96.4 (80.0-100.0) fL MCH 29.9 (27.0-34.0) pg MCHC 31.0 L (32.0-36.0) % RDW 16.5 (11.6-17.2) % Plt Count 33 L D (150-450) th/mm3 MPV 13.4 H (7.0-11.0) fL Prelim Diff (Auto) Slide review pending Neut % (Auto) 69.9 (16.0-70.0) % Lymph % (Auto) 18.6 (9.0-44.0) % [place] % (Auto) 6.7 (0.0-8.0) % Eos % (Auto) 4.7 H (0.0-4.0) % Baso % (Auto) 0.1 (0.0-2.0) % Neut # (Auto) 4.9 (1.8-7.7) th/mm3 Lymph # (Auto) 1.3 (1.0-4.8) th/mm3 [place] # (Auto) 0.5 (0.0-0.9) th/mm3 Eos # (Auto) 0.3 (0.0-0.4) th/mm3 Baso # (Auto) 0.0 (0.0-0.2) th/mm3 WBC Differential Seg Neuts % (Manual) (16-70) % Band Neuts % (Manual) (0-6) % Lymphocytes % (Manual) (9-44) % Monocytes % (Manual) (0-8) % Abs Neuts (Manual) (1.8-7.7) th/mm3 Differential Comment . Toxic Granulation (None) Platelet Estimate (Normal) Platelet Morphology (Normal) PT 25.5 H (9.8-11.6) sec INR 2.5 Ratio APTT 56.9 H (23.4-31.7) sec POC Sodium Sodium 164 H* D (136-145) meq/L POC Potassium Potassium 3.0 L (3.5-5.1) meq/L POC Chloride Chloride 131 H D (98-107) meq/L Carbon Dioxide 24.3 (21.0-32.0) meq/L Anion Gap 9 (5-15) meq/L POC BUN BUN 52 H (7-18) mg/dL Creatinine 2.26 H (0.50-1.00) mg/dL POC Creatinine Estimated GFR 26 L (>89) mL/min POC Glucose Random Glucose 245 H (74-106) mg/dL Lactic Acid (0.4-2.0) mmol/L Calcium 6.8 L* (8.5-10.1) mg/dL Prot Corrected Calcium 7.3 L* (8.5-10.1) mg/dL Phosphorus 2.2 L (2.5-4.9) mg/dL Magnesium 3.5 H D (1.5-2.5) mg/dL Total Bilirubin 0.9 (0.2-1.0) mg/dL AST 44 H (15-37) U/L ALT 31 (10-53) U/L Alkaline Phosphatase 129 H (45-117) U/L Total Creatine Kinase (26-192) U/L CK-MB (CK-2) (0.5-3.6) ng/mL CK-MB (CK-2) % (0.0-4.0) % Troponin I (0.02-0.05) ng/mL B-Natriuretic Peptide (0-100) pg/mL Total Protein 6.1 L (6.4-8.2) g/dL Albumin 1.7 L (3.4-5.0) g/dL Urine Color (Yellw/Straw) Urine Clarity (Clear) Urine pH (5.0-8.5) Ur Specific [place] (1.002-1.035) Urine Protein (Neg-Trace) mg/dL Urine Glucose (UA) (Negative) mg/dL Urine Ketones (Negative) mg/dL Urine Occult Blood (Negative) Urine Nitrate (Negative) Urine Bilirubin (Negative) Urine Urobilinogen (Less than 2) mg/dL Ur Leukocyte Esterase (Negative) Urine RBC (0-3) /hpf Urine WBC (0-5) /hpf Ur Squamous Epith Cells (0-5) /hpf Hyaline Casts (0-3) /lpf Urine Mucus (Occasional) /lpf Micro UA Comment Ur Microscopic Review Urine Culture Comments Nasal Screen MRSA (PCR) (Negative) Phenytoin (10.0-20.0) mcg/mL Imaging Data Radiologist's impression: Chest X-Ray 03/11/18 21:40 CONCLUSION: There is a new area of parenchymal consolidation in the medial right lower lobe. Head CT 03/12/18 04:21 CONCLUSION: 1. No acute hemorrhage or mass effect. 2. Remote left middle cerebral artery territory infarct with encephalomalacia and ex vacuo change. . ECG Data EKG Prior to Arrival: No Attestation: I personally reviewed and interpreted this ECG as follows: (EKG: Sinus tachycardia rate [address] elevation injury pattern or ectopy) Discharge Plan Discharge Disposition Patient Disposition: 30 Still Patient Discharge Condition Condition: Stable Discharge Details Diagnosis: Sepsis, Pneumonia, Acute hypernatremia, Dehydration, Acute renal failure Physicians Team ED Provider: Silva Yoon ED Midlevel Provider: Denae Simental Primary Care Provider: Sean Stein V Attending Provider: Valdo Ambrocio Other Providers: Jessica Byrnes Status ED Status: Left Department Discharge Information Discharge Date/Time: 03/12/18 06:43
--- NOTE | 2018-03-11 22:19 | XR ---
EXAM DATE: 03/11/2018 10:16 PM EST AGE/SEX: 72 years / Female INDICATIONS: Short of breath. CLINICAL DATA: This is the patient's initial encounter. Patient reports that signs and symptoms have been present for 1 day and indicates a pain score of Nonresponsive. MEDICAL/SURGICAL HISTORY: Non-responsive. Non-responsive. COMPARISON: [facility] – [place], CHEST SINGLE AP, 07/25/2016. . FINDINGS: Patient is rotated towards the right. There is a new ill-defined area of airspace opacity in the righ t lower lung with some air bronchogram formation. The left lung is clear. Right subclavian catheter t ip projects over the mid superior vena cava. The heart is normal in size when taking into account pat ient rotation. Stable healed fracture of the posterior sixth rib. Hemoclips in the left axilla. CONCLUSION: There is a new area of parenchymal consolidation in the medial right lower lobe. Electronically signed by: Manny Wilder MD 03/11/2018 10:18 PM EST
[2018-03-11 22:24] LABS: Eos # (Auto) 0.1 th/mm3 (0.0-0.4); Hematocrit 39.3 % (35.0-46.0); Hemoglobin 11.7 gm/dL (11.6-15.3); Lymph # (Auto) 2.7 th/mm3 (1.0-4.8); Lymph % (Auto) 22.6 % (9.0-44.0); Mean Corpuscular Hemoglobin 28.5 pg (27.0-34.0); Mean Corpuscular Volume 95.9 fL (80.0-100.0); Mean Platelet Volume 13.1 fL (7.0-11.0); Mono # (Auto) 0.9 th/mm3 (0.0-0.9); Mono % (Auto) 7.5 % (0.0-8.0); Neut # (Auto) 8.2 th/mm3 (1.8-7.7); Neut % (Auto) 68.9 % (16.0-70.0); Platelet Count 50 th/mm3 (150-450); Red Cell Distribution Width 16.9 % (11.6-17.2)
[2018-03-11 22:31] LABS: Activated Partial Thrombo Time 50.7 sec (23.4-31.7); INR 3.3 Ratio; Mean Corpuscular HGB Conc 29.7 % (32.0-36.0); Prothrombin Time 33.1 sec (9.8-11.6)
[2018-03-11] MEDS ORDERED: Sodium Chlor 0.9% Inj 250 ML IV.SIG SCH (23:00)
[2018-03-11] MEDS ORDERED: Vancomycin Inj 1,000 MG in Sodium Chlor 0.9% Inj 250 ML IV.SIG ONE (23:19)
[2018-03-11] MEDS ORDERED: Piperacil/Tazo 4.5 GM Premix 4.5 GM/100 ML BAG IV.SIG ONE (23:19)
[2018-03-11] MEDS ORDERED: Acetaminophen 650 MG Supp RECTAL ONE (23:24)
[2018-03-11 23:49] LABS: Lymphocytes 24 % (9-44); Monocytes 7 % (0-8); Platelet Morphology Normal (Normal); Toxic Granulation 2+
[2018-03-12] MEDS ORDERED: Vancomycin Consult Pharmacy OTHER ONE (00:52)
[2018-03-12] MEDS ORDERED: Bisacodyl 10 MG Supp RECTAL PRN ×2 (00:55→05:40)
[2018-03-12] MEDS ORDERED: Acetaminophen 325 MG Tablet PO PRN (00:55)
[2018-03-12] MEDS ORDERED: Vancomycin Consult Pharmacy OTHER PRN (01:01)
[2018-03-12] MEDS: Azithromycin Inj 500 MG in Sodium Chlor 0.9% Inj 250 ML IV.SIG SCH (01:30)
[2018-03-12 01:33] LABS: Bilirubin,Urine Negative (Negative); Clarity,Urine Hazy (Clear); Color,Urine Yellow (Yellw/Straw); Glucose,Urine (UA) Negative (Negative); Hyaline Casts,Urine 4 /lpf (0-3); Leukocyte Esterase,Urine Negative (Negative); Mucus,Urine Few /lpf (Occasional); Nitrite,Urine Negative (Negative); Specific Gravity,Urine 1.018 (1.002-1.035); Squamous Epithelial Cell,Urine 1 /hpf (0-5)
[2018-03-12] MEDS ORDERED: Sodium Chloride 0.9% 2 ML Flush PRN IV.FLUSH (01:45)
[2018-03-12 02:46] LABS: Alanine Aminotransferase 31 U/L (10-53); Albumin 2.1 g/dL (3.4-5.0); Alkaline Phosphatase 149 U/L (45-117); Anion Gap 6 meq/L (5-15); Aspartate Aminotransferase 30 U/L (15-37); Blood Urea Nitrogen 67 mg/dL (7-18); Calcium 7.5 mg/dL (8.5-10.1); Carbon Dioxide 28.2 meq/L (21.0-32.0); Chloride 144 meq/L (98-107); Creatine Kinase 758 U/L (26-192); Glomerular Filtration Rate 21 mL/min (>89); Glucose,Random 173 mg/dL (74-106); Magnesium 4.1 mg/dL (1.5-2.5); Phenytoin (Dilantin) 8.3 mcg/mL (10.0-20.0); Potassium 3.7 meq/L (3.5-5.1); Total Protein 6.8 g/dL (6.4-8.2); Troponin I 0.17 ng/mL (0.02-0.05)
[2018-03-12 02:53] LABS: Sodium 178 meq/L (136-145)
--- NOTE | 2018-03-12 02:54 | P.HP ---
History of Present Illness Service: [facility] Primary Care Physician: Sean Stein MD History of Present Illness: 72-year-old female with a past medical history significant for atrial fibrillation (dye coagulated on Coumadin), GERD, CHF, CKD, history of CVA with residual weakness and aphasia, dementia, seizure disorder and hypertension presents to the emergency department for the evaluation of shortness of breath. Per ED documentation the patient was sent from her [facility] facility for the evaluation of shortness of breath. EMS was called and on their arrival the patient's oxygen saturation was 97%. The patient was started on Levaquin at her [facility] facility for "congestion." The patient is unable to contribute to HPI. She became febrile in the emergency department with a T-max of 101.8. Pulse ox 100% on room air. Chest x-ray consistent with pneumonia. Inpatient Certification: I certify that the inpatient services were ordered in accordance with Medicare regulations governing the order. This includes certification that hospital inpatient services are reasonable and necessary and in the case of services not specified as inpatient-only under 42 CFR 419.22(n), that they are appropriately provided as inpatient services in accordance to with the 2-midnight benchmark under 43 CFR 412.3(e) Estimated Total Length of Stay (Days): 3 Plans for Post Hospital Care: SNF Review of Systems unobtainable due to mental condition PMFSH - History History Provided By: Digital Imager / EMT - Medical History Medical History: Medical History (Last Reviewed 03/12/18 @ 03:31 by Jessica Sadler MD) Agnosia Angina pectoris, unspecified Anxiety CKD (chronic kidney disease) CVA (cerebral vascular accident) Dysphagia Failure to thrive GERD (gastroesophageal reflux disease) Gastrointestinal tube present HTN (hypertension) Heart failure Hypokalemia IBS (irritable bowel syndrome) Schizoaffective disorder Vascular dementia with behavior disturbance - Surgical History Surgical History: Surgical History (Last Updated 03/12/18 @ 03:31 by Jessica Sadler MD) S/P percutaneous endoscopic gastrostomy (PEG) tube placement - Family History Family History: Family History (Last Updated 03/12/18 @ 03:31 by Jessica Sadler MD) Other Family history unknown - Social History I have reviewed the patient's Social History: Yes - Tobacco History Smoking Status: Unknown if ever smoked - Alcohol History How Often Do You Have a Drink Containing Alcohol: Unable to Obtain - Substance Use History Substance History: Unable to Obtain - Travel History Recent Travel in the [place] Within the Last 8 Weeks: No Recent Travel Out of the Country Within the Last 8 Weeks: No - Immunization History Tetanus Immunization: Unable to Assess Medications and Allergies Active Medications: Active Medications Acetaminophen (Tylenol) 650 mg PO Q4H PRN PRN Reason: Temp > 100.4/pain Albuterol (Duoneb Neb (Sharmila)) 1 ampul NEB Q6HR NEB SHARMILA Albuterol (Duoneb Neb (Prn)) 1 ampul NEB Q2HR NEB PRN PRN Reason: SHORTNESS OF BREATH/WHEEZING Bisacodyl (Dulcolax Supp) 10 mg RECTAL DAILY PRN PRN Reason: SEVERE CONSITIPATION Azithromycin 500 mg/ Sodium (Chloride) 250 mls @ 250 mls/hr IV.SIG Q24H SHARMILA Piperacillin/Tazobactam/Dextrose (Zosyn 4.5 Gm Premix) 4.5 gm in 100 mls @ 200 mls/hr IV.SIG Q6H SHARMILA Ondansetron HCl (Zofran Inj) 4 mg IV.PUSH Q6H PRN PRN Reason: NAUSEA OR VOMITING Pharmacy Profile Note (Vancomycin Consult Pharmacy) 1 each OTHER UNSCH PRN PRN Reason: PHARMACY CONSULT Sennosides (Senokot) 17.2 mg PO Q12H PRN PRN Reason: Moderate Constipation Sodium Chloride (Ns Flush) 2 ml IV.FLUSH BID SHARMILA Sodium Chloride (Ns Flush) 2 ml IV.FLUSH PRN PRN PRN Reason: FLUSH AFTER USING IV ACCESS Allergies Allergy/AdvReac Type Severity Reaction Status Date / Time aspirin Allergy Severe Hives Verified 03/12/18 02:28 *MDRO Multi-Drug Resistant AdvReac Unknown Cleared Uncoded 06/20/17 11:13 Organism 05/2016 Home Medications Medication Instructions Recorded Confirmed Type ferrous sulfate 325 mg FEEDING TUBE TID 03/11/18 03/12/18 History levetiracetam [Keppra] 100 mg FEEDING TUBE BID 03/11/18 03/12/18 History levofloxacin [Levaquin] 500 mg FEEDING TUBE DAILY 03/11/18 03/12/18 History lisinopril 20 mg FEEDING TUBE DAILY 03/11/18 03/12/18 History metoprolol tartrate 50 mg FEEDING TUBE BID 03/11/18 03/12/18 History mirtazapine 7.5 mg FEEDING TUBE DAILY 03/11/18 03/12/18 History phenytoin [Dilantin Infatabs] 125 mg G-TUBE BID 03/11/18 03/11/18 History pravastatin 20 mg FEEDING TUBE BID 03/11/18 03/12/18 History famotidine 20 mg FEEDING TUBE BID 03/12/18 03/12/18 History triamcinolone acetonide 1 applic TOPICAL BID 03/12/18 03/12/18 History warfarin 7.5 mg PO DIRECTED 03/12/18 03/12/18 History warfarin 10 mg PO QTUTHSA 03/12/18 03/12/18 History Exam Vital signs: Vital Signs 03/11/18 22:18 03/11/18 23:30 03/12/18 01:22 Temperature 98.9 F 101.8 F H 100.5 F H Pulse Rate 120 H 114 H 105 H Respiratory Rate 20 20 21 Blood Pressure 158/69 H 134/61 140/63 Pulse Oximetry 98 100 100 Intake & Output 03/11/18 03/11/18 03/12/18 06:59 18:59 06:59 Intake Total 600 / 600 Balance 600 / 600 Weight 95.254 kg Intake: IV 600 / 600 Zosyn 4.5 GM Premix 4.5 gm In 100 / 100 100 ml @ 200 mls/hr IV.SIG ONCE ONE Rx#:[id number] NS Inj 250 ML @ 500 mls/hr IV. 250 / 250 SIG BOLUS SHARMILA Rx#:[id number] Vancomycin Inj 1,000 MG In NS 250 / 250 Inj 250 ML @ 250 mls/hr IV.SIG ONCE ONE Rx#:[id number] Narrative: Gen.: No acute distress Head: Normocephalic. Atraumatic. EENT: Pupils equal round and reactive to light. Nose without drainage. Airway intact. Throat without injection. Cardiovascular: Regular rate and rhythm. No murmurs, rubs or gallops. Respiratory: Lungs clear to auscultation bilaterally. No wheezes or rhonchi. Abdomen: Soft, nontender, nondistended. No peritoneal signs. G-tube in place. Musculoskeletal: No gross deformities. No edema. Skin: No obvious rashes or erythema. Neuro: Aphasic. Does not follow commands. Results - Labs CBC & Chem 7: 03/11/18 21:58 03/12/18 01:49 Labs: Laboratory Results - last 24 hr 03/11/18 03/11/18 03/11/18 21:58 21:58 21:58 WBC 12.0 H RBC 4.10 Hgb 11.7 Hct 39.3 MCV 95.9 MCH 28.5 MCHC 29.7 L RDW 16.9 Plt Count 50 L MPV 13.1 H Prelim Diff (Auto) Slide review pending Neut % (Auto) 68.9 Lymph % (Auto) 22.6 [place] % (Auto) 7.5 Eos % (Auto) 1.0 Baso % (Auto) 0.0 Neut # (Auto) 8.2 H Lymph # (Auto) 2.7 [place] # (Auto) 0.9 Eos # (Auto) 0.1 Baso # (Auto) 0.0 WBC Differential Manual diff final Seg Neuts % (Manual) 42 Band Neuts % (Manual) 27 H Lymphocytes % (Manual) 24 Monocytes % (Manual) 7 Abs Neuts (Manual) 8.3 H Differential Comment . Toxic Granulation 2+ H Platelet Estimate Low L Platelet Morphology Normal PT 33.1 H INR 3.3 APTT 50.7 H Lactic Acid B-Natriuretic Peptide 216 H Urine Color Urine Clarity Urine pH Ur Specific [place] Urine Protein Urine Glucose (UA) Urine Ketones Urine Occult Blood Urine Nitrate Urine Bilirubin Urine Urobilinogen Ur Leukocyte Esterase Urine RBC Urine WBC Ur Squamous Epith Cells Hyaline Casts Urine Mucus Micro UA Comment Ur Microscopic Review Urine Culture Comments 03/12/18 03/12/18 00:28 00:56 WBC RBC Hgb Hct MCV MCH MCHC RDW Plt Count MPV Prelim Diff (Auto) Neut % (Auto) Lymph % (Auto) [place] % (Auto) Eos % (Auto) Baso % (Auto) Neut # (Auto) Lymph # (Auto) [place] # (Auto) Eos # (Auto) Baso # (Auto) WBC Differential Seg Neuts % (Manual) Band Neuts % (Manual) Lymphocytes % (Manual) Monocytes % (Manual) Abs Neuts (Manual) Differential Comment Toxic Granulation Platelet Estimate Platelet Morphology PT INR APTT Lactic Acid 2.5 H B-Natriuretic Peptide Urine Color Yellow Urine Clarity Hazy H Urine pH 6.0 Ur Specific [place] 1.018 Urine Protein 30 H Urine Glucose (UA) Negative Urine Ketones Negative Urine Occult Blood Negative Urine Nitrate Negative Urine Bilirubin Negative Urine Urobilinogen 2.0 H Ur Leukocyte Esterase Negative Urine RBC 1 Urine WBC 2 Ur Squamous Epith Cells 1 Hyaline Casts 4 Urine Mucus Few H Micro UA Comment Cath-culture not ind Ur Microscopic Review Not Reportable Urine Culture Comments Cath-cult not ind - Imaging Impressions Chest X-Ray 03/11/18 21:40 CONCLUSION: There is a new area of parenchymal consolidation in the medial right lower lobe. Caprini VTE Risk Assessment Caprini VTE Risk Assessment: Moderate/High Risk (score >= 2) Caprini Risk Assessment Model: Point Value = 1 Point Value = 2 Point Value = 3 Point Value = 5 Age 41-60 Minor surgery BMI > 25 kg/m2 Swollen legs Varicose veins or History of unexplained or recurrent spontaneous Oral contraceptives or hormone replacement Sepsis (< 1 month) Serious lung disease, including pneumonia (< 1 month) Abnormal pulmonary function Acute myocardial infarction Congestive heart failure (< 1 month) History of inflammatory bowel disease Medical patient at bed rest Age 61-74 Arthroscopic surgery Major open surgery (> 45 min) Laparoscopic surgery (> 45 min) Malignancy Confined to bed (> 72 hours) Immobilizing plaster cast Central venous access Age >= 75 History of VTE Family history of VTE Factor V Leiden Prothrombin [id number] Lupus anticoagulant Anticardiolipin antibodies Elevated serum homocysteine Heparin-induced thrombocytopenia Other congenital or acquired thrombophilia Stroke (< 1 month) Elective arthroplasty Hip, pelvis, or leg fracture Acute spinal cord injury (< 1 month) Prophylaxis Regimen: Total Risk Factor Score Risk Level Prophylaxis Regimen 0-1 Low Early ambulation 2 Moderate Order ONE of the following: *Sequential Compression Device (SCD) *Heparin 5000 units SQ BID 3-4 Higher Order ONE of the following medications: *Heparin 5000 units SQ TID *Enoxaparin/Lovenox 40 mg SQ daily (WT < 150 kg, CrCl > 30 mL/min) *Enoxaparin/Lovenox 30 mg SQ daily (WT < 150 kg, CrCl > 10-29 mL/min) *Enoxaparin/Lovenox 30 mg SQ BID (WT < 150 kg, CrCl > 30 mL/min) AND/OR *Sequential Compression Device (SCD) 5 or more Highest Order ONE of the following medications: *Heparin 5000 units SQ TID (Preferred with Epidurals) *Enoxaparin/Lovenox 40 mg SQ daily (WT < 150 kg, CrCl > 30 mL/min) *Enoxaparin/Lovenox 30 mg SQ daily (WT < 150 kg, CrCl > 10-29 mL/min) *Enoxaparin/Lovenox 30 mg SQ BID (WT < 150 kg, CrCl > 30 mL/min) AND *Sequential Compression Device (SCD) Assessment and Plan - Plan Assessment/plan: 1. Pneumonia/sepsis 2. Hypernatremia
[2018-03-12 03:09] LABS: CKMB Percent 0.1 % (0.0-4.0); Creatine Kinase MB 1.1 ng/mL (0.5-3.6)
[2018-03-12] MEDS ORDERED: Sodium Chloride 0.45 % Inj 500 ML IV.SIG ONE (04:28)
[2018-03-12] MEDS ORDERED: Sodium Chloride 0.45 % Inj 1,000 ML IV.CONT SCH (04:30)
[2018-03-12 04:43] LABS: Calcium 7.4 mg/dL (8.5-10.1); Carbon Dioxide 26.8 meq/L (21.0-32.0); Potassium 3.1 meq/L (3.5-5.1)
--- NOTE | 2018-03-12 04:53 | CT ---
EXAM DATE: 03/12/2018 4:47 AM EST AGE/SEX: 72 years / Female INDICATIONS: Altered mental status. Patient has a history of a known large left middle cerebral maribell ry territory stroke. CLINICAL DATA: This is the patient's initial encounter. Patient reports that signs and symptoms have been present for 1 day and indicates a pain score of 0/10. MEDICAL/SURGICAL HISTORY: Cerebrovascular disease. Hypertension. Dementia. None. RADIATION DOSE: 56.35 CTDI (mGy) COMPARISON: [facility] [place], MRI BRAIN W/O CONTRAST, 06/18/2016. . TECHNIQUE: CT of the head without contrast. Using automated exposure control and adjustment of the mA and/or kV according to patient size, radiation dose was kept as low as reasonably achievable to ob tain optimal diagnostic quality images. DICOM format image data is available electronically for revi ew and comparison. FINDINGS: Encephalomalacia is again noted involving the left middle cerebral artery territory with ex vacuo teto nge with significant enlargement of the left lateral ventricle. There is diffuse atrophic change with sulcal and ventricular prominence. There is no acute hemorrhage, mass or evidence of acute infarctio n. The posterior fossa and brainstem remain intact. The bone windows are unremarkable. CONCLUSION: 1. No acute hemorrhage or mass effect. 2. Remote left middle cerebral artery territory infarct with encephalomalacia and ex vacuo change. . Electronically signed by: Mark Peter MD 03/12/2018 4:52 AM EST
[2018-03-12 05:04] LABS: Calcium-Albumin Corrected 7.9 mg/dL (8.5-10.1); Total Protein 6.2 g/dL (6.4-8.2)
[2018-03-12] MEDS ORDERED: Warfarin Consult Pharmacy OTHER PRN (05:39)
[2018-03-12] MEDS ORDERED: Morphine Sulfate Inj 2 MG/ML Vial IV.PUSH PRN (05:40)
[2018-03-12] MEDS ORDERED: Dextrose 5%/NaCl 0.45% Inj 1,000 ML IV.CONT SCH (05:45)
--- NOTE | 2018-03-12 05:50 | P.HPCC ---
History of Present Illness Primary Care Physician: Sean Stein MD History of Present Illness: 72-year-old female presents for evaluation of shortness of breath. Patient comes from an SNF. She has history of CVA with right-sided hemiparesis, seizure disorder, hypertension, asthma, schizoaffective disorder, dementia, heart failure. According to EMS, they were called for shortness of breath. However, her oxygen saturations were 97% on oxygen. Appears to be at her baseline according to EMS. She is slightly tachycardic, 110-120. According to records, she is on Coumadin. Patient is unable to contribute any history or physical. According to SNF records, she is currently on Levaquin for congestion. In the emergency department she was found to have a sodium level of 178/180 and has been admitted to ICU. Inpatient Certification: I certify that the inpatient services were ordered in accordance with Medicare regulations governing the order. This includes certification that hospital inpatient services are reasonable and necessary and in the case of services not specified as inpatient-only under 42 CFR 419.22(n), that they are appropriately provided as inpatient services in accordance to with the 2-midnight benchmark under 43 CFR 412.3(e) Estimated Total Length of Stay (Days): 3 Plans for Post Hospital Care: SNF Review of Systems unobtainable due to mental condition PMFSH - History History Provided By: Education Rep / EMT - Medical History Medical History: Medical History (Last Updated 03/12/18 @ 11:20 by Yaneth Pineda) History of MRSA infection Onset Date: ~03/12/18 Agnosia Angina pectoris, unspecified Anxiety CKD (chronic kidney disease) CVA (cerebral vascular accident) Dysphagia Failure to thrive GERD (gastroesophageal reflux disease) Gastrointestinal tube present HTN (hypertension) Heart failure Hypokalemia IBS (irritable bowel syndrome) Schizoaffective disorder Vascular dementia with behavior disturbance - Surgical History Surgical History: Surgical History (Last Updated 03/12/18 @ 03:31 by Jessica Sadler MD) S/P percutaneous endoscopic gastrostomy (PEG) tube placement - Family History Family History: Family History (Last Updated 03/12/18 @ 03:31 by Jessica Sadler MD) Other Family history unknown - Tobacco History Second Hand Smoke Exposure: No Tobacco Use In Past 30 Days: No Smoking Status: Unknown if ever smoked - Alcohol History How Often Do You Have a Drink Containing Alcohol: Unable to Obtain - Substance Use History Substance History: Unable to Obtain - Travel History Recent Travel in the [place] Within the Last 8 Weeks: No Recent Travel Out of the Country Within the Last 8 Weeks: No - Immunization History Tetanus Immunization: Unable to Assess Medications and Allergies Active Medications: Active Medications Acetaminophen (Tylenol) 650 mg PO Q4H PRN PRN Reason: Temp > 100.4/pain Albuterol (Duoneb Neb (Sharmila)) 1 ampul NEB Q6HR NEB SHARMILA Last Admin: 03/12/18 03:33 Dose: 1 ampul Albuterol (Duoneb Neb (Prn)) 1 ampul NEB Q2HR NEB PRN PRN Reason: SHORTNESS OF BREATH/WHEEZING Bisacodyl (Dulcolax Supp) 10 mg RECTAL DAILY PRN PRN Reason: SEVERE CONSITIPATION Ferrous Sulfate (Ferosul) 325 mg PO TID SHARMILA Azithromycin 500 mg/ Sodium (Chloride) 250 mls @ 250 mls/hr IV.SIG Q24H SHARMILA Last Infusion: 03/12/18 02:28 Dose: Infused Piperacillin/Tazobactam/Dextrose (Zosyn 3.375 Gm Premix) 50 mls @ 100 mls/hr IV.SIG Q6H SHARMILA Sodium Chloride (1/2 Normal Saline Inj) 1,000 mls @ 84 mls/hr IV.CONT .[id number] SHARMILA Last Admin: 03/12/18 05:25 Dose: 84 mls/hr Levetiracetam (Keppra Liq) 100 mg PO BID [facility] Non-Formulary Medication (Mirtazapine [Mirtazapine]) 7.5 mg FEED TUBE DAILY [facility] Ondansetron HCl (Zofran Inj) 4 mg IV.PUSH Q6H PRN PRN Reason: NAUSEA OR VOMITING Pharmacy Profile Note (Vancomycin Consult Pharmacy) 1 each OTHER UNSCH PRN PRN Reason: PHARMACY CONSULT Pharmacy Profile Note (Coumadin Consult Pharmacy) 1 each OTHER UNSCH PRN PRN Reason: PHARMACY DOCUMENTATION Phenytoin (Dilantin Infatabs Chewable) 125 mg G-TUBE BID [facility] Pravastatin Sodium (Pravachol) 20 mg PO BID [facility] Sennosides (Senokot) 17.2 mg PO Q12H PRN PRN Reason: Moderate Constipation Sodium Chloride (Ns Flush) 2 ml IV.FLUSH BID [facility] Sodium Chloride (Ns Flush) 2 ml IV.FLUSH PRN PRN PRN Reason: FLUSH AFTER USING IV ACCESS Triamcinolone Acetonide (Aristocort 0.1% Cream) 1 applicatio TOPICAL BID [facility] Warfarin Sodium (Coumadin) 7.5 mg PO DIRECTED [facility] Warfarin Sodium (Coumadin) 10 mg PO QTUTHSA SHARMILA Allergies Allergy/AdvReac Type Severity Reaction Status Date / Time aspirin Allergy Severe Hives Verified 03/12/18 02:28 *MDRO Multi-Drug Resistant AdvReac Unknown Cleared Uncoded 06/20/17 11:13 Organism 05/2016 Home Medications Medication Instructions Recorded Confirmed Type ferrous sulfate 325 mg FEEDING TUBE TID 03/11/18 03/12/18 History levetiracetam [Keppra] 100 mg FEEDING TUBE BID 03/11/18 03/12/18 History levofloxacin [Levaquin] 500 mg FEEDING TUBE DAILY 03/11/18 03/12/18 History lisinopril 20 mg FEEDING TUBE DAILY 03/11/18 03/12/18 History metoprolol tartrate 50 mg FEEDING TUBE BID 03/11/18 03/12/18 History mirtazapine 7.5 mg FEEDING TUBE DAILY 03/11/18 03/12/18 History phenytoin [Dilantin Infatabs] 125 mg G-TUBE BID 03/11/18 03/11/18 History pravastatin 20 mg FEEDING TUBE BID 03/11/18 03/12/18 History famotidine 20 mg FEEDING TUBE BID 03/12/18 03/12/18 History triamcinolone acetonide 1 applic TOPICAL BID 03/12/18 03/12/18 History warfarin 7.5 mg FEEDING TUBE DIRECTED 03/12/18 03/12/18 History warfarin 10 mg FEEDING TUBE QTUTHSA 03/12/18 03/12/18 History Results - Labs CBC & Chem 7: 03/13/18 03:48 03/13/18 03:48 Labs: Short CBC 03/11/18 Range/Units 21:58 WBC 12.0 H (4.0-11.0) th/mm3 Hgb 11.7 (11.6-15.3) gm/dL Hct 39.3 (35.0-46.0) % Plt Count 50 L (150-450) th/mm3 BMP 03/12/18 03/12/18 01:49 03:55 Sodium 178 H* 180 H* Potassium 3.7 3.1 L Chloride 144 H 147 H Carbon Dioxide 28.2 26.8 BUN 67 H 64 H Creatinine 2.68 H 2.58 H Calcium 7.5 L 7.4 L* Cardiac Enzymes 03/12/18 Range/Units 01:49 Total Creatine Kinase 758 H (26-192) U/L CK-MB (CK-2) 1.1 (0.5-3.6) ng/mL Troponin I 0.17 H (0.02-0.05) ng/mL Liver Function 03/12/18 Range/Units 01:49 Total Bilirubin 1.1 H (0.2-1.0) mg/dL AST 30 (15-37) U/L ALT 31 (10-53) U/L Alkaline Phosphatase 149 H (45-117) U/L Albumin 2.1 L (3.4-5.0) g/dL Urine 03/12/18 Range/Units 00:56 Urine Color Yellow (Yellw/Straw) Urine Clarity Hazy H (Clear) Urine pH 6.0 (5.0-8.5) Ur Specific [place] 1.018 (1.002-1.035) Urine Protein 30 H (Neg-Trace) mg/dL Urine Glucose (UA) Negative (Negative) mg/dL - Imaging Impressions Chest X-Ray 03/11/18 21:40 CONCLUSION: There is a new area of parenchymal consolidation in the medial right lower lobe. Head CT 03/12/18 04:21 CONCLUSION: 1. No acute hemorrhage or mass effect. 2. Remote left middle cerebral artery territory infarct with encephalomalacia and ex vacuo change. . Exam Vital signs: Vital Signs 03/11/18 22:18 03/11/18 23:30 03/12/18 01:22 Temperature 98.9 F 101.8 F H 100.5 F H Pulse Rate 120 H 114 H 105 H Respiratory Rate 20 20 21 Blood Pressure 158/69 H 134/61 140/63 Pulse Oximetry 98 100 100 03/12/18 03:35 03/12/18 04:00 Temperature 98.9 F Pulse Rate 101 H 100 H Respiratory Rate 16 18 Blood Pressure 121/54 L Pulse Oximetry 96 100 Intake & Output 03/11/18 03/11/18 03/12/18 06:59 18:59 06:59 Intake Total 850 / 850 Balance 850 / 850 Weight 95.254 kg Intake: IV 850 / 850 Azithromycin Inj 500 MG In NS 250 / 250 Inj 250 ML @ 250 mls/hr IV.SIG Q24H SHARMILA Rx#:[id number] Zosyn 4.5 GM Premix 4.5 gm In 100 / 100 100 ml @ 200 mls/hr IV.SIG ONCE ONE Rx#:[id number] NS Inj 250 ML @ 500 mls/hr IV. 250 / 250 SIG BOLUS SHARMILA Rx#:[id number] Vancomycin Inj 1,000 MG In NS 250 / 250 Inj 250 ML @ 250 mls/hr IV.SIG ONCE ONE Rx#:[id number] - Constitutional chronically ill appearing - Routine HEENT Exam Head: Present: normocephalic Eye: Present: normal accommodation. Absent: scleral injection, conjunctivae pink ENT: Present: mucous membranes dry - Routine Neck Exam Present: supple. Absent: JVD, carotid bruit - Routine Chest/Breast/Axilla Exam Chest wall: Absent: tenderness, mass - Routine Respiratory Exam Present: rhonchi, crackles. Absent: accessory muscle use, stridor, wheezes - Routine Cardiovascular Exam Present: RRR, S1, S2 - Routine Abdominal Exam Present: soft, normoactive bowel sounds - Routine Extremities Exam Absent: cyanosis, clubbing, edema - Routine Skin Exam Absent: intact, cyanosis, erythema - Routine Neurological Exam Present: altered mental status Septic Shock Reassessment Septic shock perfusion: reassessment completed Caprini VTE Risk Assessment Caprini VTE Risk Assessment: Moderate/High Risk (score >= 2) Caprini Risk Assessment Model: Point Value = 1 Point Value = 2 Point Value = 3 Point Value = 5 Age 41-60 Minor surgery BMI > 25 kg/m2 Swollen legs Varicose veins or History of unexplained or recurrent spontaneous Oral contraceptives or hormone replacement Sepsis (< 1 month) Serious lung disease, including pneumonia (< 1 month) Abnormal pulmonary function Acute myocardial infarction Congestive heart failure (< 1 month) History of inflammatory bowel disease Medical patient at bed rest Age 61-74 Arthroscopic surgery Major open surgery (> 45 min) Laparoscopic surgery (> 45 min) Malignancy Confined to bed (> 72 hours) Immobilizing plaster cast Central venous access Age >= 75 History of VTE Family history of VTE Factor V Leiden Prothrombin [id number] Lupus anticoagulant Anticardiolipin antibodies Elevated serum homocysteine Heparin-induced thrombocytopenia Other congenital or acquired thrombophilia Stroke (< 1 month) Elective arthroplasty Hip, pelvis, or leg fracture Acute spinal cord injury (< 1 month) Prophylaxis Regimen: Total Risk Factor Score Risk Level Prophylaxis Regimen 0-1 Low Early ambulation 2 Moderate Order ONE of the following: *Sequential Compression Device (SCD) *Heparin 5000 units SQ BID 3-4 Higher Order ONE of the following medications: *Heparin 5000 units SQ TID *Enoxaparin/Lovenox 40 mg SQ daily (WT < 150 kg, CrCl > 30 mL/min) *Enoxaparin/Lovenox 30 mg SQ daily (WT < 150 kg, CrCl > 10-29 mL/min) *Enoxaparin/Lovenox 30 mg SQ BID (WT < 150 kg, CrCl > 30 mL/min) AND/OR *Sequential Compression Device (SCD) 5 or more Highest Order ONE of the following medications: *Heparin 5000 units SQ TID (Preferred with Epidurals) *Enoxaparin/Lovenox 40 mg SQ daily (WT < 150 kg, CrCl > 30 mL/min) *Enoxaparin/Lovenox 30 mg SQ daily (WT < 150 kg, CrCl > 10-29 mL/min) *Enoxaparin/Lovenox 30 mg SQ BID (WT < 150 kg, CrCl > 30 mL/min) AND *Sequential Compression Device (SCD) Assessment and Plan - Assessment and Plan Plan: Pneumonia -Healthcare associated -Zosyn, azithromycin, vancomycin -Follow-up cultures and de-escalate -DuoNeb's as needed -Repeat CXR a.m. Hypernatremia -Severe dehydration -D5 half NS IV fluid resuscitation -Free water Via G-tube -Strict I's and O's -Monitor trend Dysphagia -G-tube feeding Anemia -Iron supplement Seizure disorder -Keppra -Dilantin Dyslipidemia -Pravastatin Hypertension -Hold home meds while suspected sepsis -Resume when indicated History of left MCA CVA -Coumadin dosing per pharmacy DVT GI prophylaxis -Teds SCDs -Coumadin -Pepcid Level 2
[2018-03-12] MEDS ORDERED: Heparin - SQ 10,000 UNITS/ML Vial SQ SCH (06:00)
[2018-03-12] MEDS ORDERED: Piperacil/Tazo 4.5 GM Premix 4.5 GM/100 ML BAG IV.SIG SCH (06:00)
[2018-03-12] MEDS: Piperacil/Tazo 3.375 GM Premix 50 ML IV.SIG SCH ×3 (08:59→19:36)
[2018-03-12] MEDS ORDERED: Sodium Chloride 0.9% 2 ML Flush BID IV.FLUSH SCH (09:00)
[2018-03-12] MEDS: Mirtazapine 15 MG Tablet PO SCH (09:00)
[2018-03-12] MEDS: Senna/Docusate Sodium 8.6/50 MG Tablet PO SCH ×2 (09:00→20:18)
[2018-03-12] MEDS: Ferrous Sulfate 325 MG Tablet PO SCH ×3 (09:01→17:39)
[2018-03-12] MEDS ORDERED: Vancomycin Inj 1,000 MG in Sodium Chlor 0.9% Inj 250 ML IV.SIG ONE (10:00)
[2018-03-12] MEDS: Famotidine PF Inj 20 MG/2 ML Vial IV.PUSH SCH ×2 (10:31→20:16)
[2018-03-12] MEDS: Phenytoin 50 MG Chewable Tablet G-TUBE SCH ×3 (12:42→20:16)
[2018-03-12] MEDS: Dextrose 5% in Water Inj 1,000 ML IV.CONT SCH ×2 (13:28→22:40)
--- NOTE | 2018-03-12 16:00 | P.DIET ---
Nutritional Evaluation Type of nutrition evaluation: initial Nutrition consult regarding: Tube Feeding Screening comments: TF review Objective - Diagnosis sepsis, pneumonia - Objective Body Mass Index: 28.5 % IBW: 134 (IBW = 135lb) Body Weight Used for Calculations: Actual Energy Needs - Lower Range (kCal/kg): 25 Energy Needs - Upper Range (kCal/kg): 30 Lower Limit kCal/kg (kCals): 2,060 Upper Limit kCal/kg (kCals): 2,472 Lower Limit Protein Factor (Grams per Kg): 1.1 Upper Limit Protein Factor (Grams per Kg): 1.3 Lower Protein Needs (Protein): 91 Upper Protein Needs (Protein): 107 Dietitian Reviewed in Medical Record: Current diet, Curent medications, Intake & Output, Labs, Medical history, Tube feeding Diet Order: NPO, TF Objective Comments: PMH: CKD, CVA, dysphagia, failure to thrive, GERD, CHF, HTN, hypokalemia, IBS, schizoaffective disorder, vascular dementia Labs: Na 180, K+3.1, BUN 64, Cr 2.58, GFR 22, random glucose 160, Ca+ 7.4, Mg 4.1 Assessment Assessment: Pt receiving Two Maksim HN @ 55mL/hr per MD. RD to recommend Nepro 1.8 @ 50mL/hr to provide 2160kcal, 97g of protein, and 872mL of free water to best meet pts nutritional needs. Continue to monitor TF tolerance and renal labs. Labs reviewed, dietitian following. Recommendations: 1. RD to recommend Nepro 1.8 @ 50mL/hr to best meet pts nutritional needs 2. Continue to monitor TF tolerance and renal labs 3. Dietitian following Dietitian to Monitor: Lab values, Renal labs, Intake & Output, Tube feeding tolerance, Medical course
--- NOTE | 2018-03-12 18:11 | ECG ---
Date Performed: 03/12/2018 Time Performed: 00:26:15 PTAGE: 72 years EKG: SINUS TACHYCARDIA ABNORMAL RHYTHM ECG PREVIOUS TRACING : 09/03/2017 08.46 Since the previous tracing, no significant change noted DOCTOR: Herrera Dotson Interpretating Date/Time 03/12/2018 18:10:50
[2018-03-13] MEDS: Azithromycin Inj 500 MG in Sodium Chlor 0.9% Inj 250 ML IV.SIG SCH (00:38)
[2018-03-13] MEDS: Piperacil/Tazo 3.375 GM Premix 50 ML IV.SIG SCH ×4 (01:36→19:43)
[2018-03-13] MEDS: Chlorhexidine Gluconate 2% 1 Pack (2 Cloths) TOPICAL SCH (03:01)
[2018-03-13] MEDS ORDERED: Chlorhexidine Gluconate 2% 1 Pack (2 Cloths) TOPICAL PRN (04:00)
[2018-03-13 04:30] LABS: Baso % (Auto) 0.1 % (0.0-2.0); Eos # (Auto) 0.3 th/mm3 (0.0-0.4); Eos % (Auto) 4.7 % (0.0-4.0); Hematocrit 30.6 % (35.0-46.0); Hemoglobin 9.5 gm/dL (11.6-15.3); Lymph # (Auto) 1.3 th/mm3 (1.0-4.8); Lymph % (Auto) 18.6 % (9.0-44.0); Mean Corpuscular Hemoglobin 29.9 pg (27.0-34.0); Mean Corpuscular Volume 96.4 fL (80.0-100.0); Mean Platelet Volume 13.4 fL (7.0-11.0); Mono # (Auto) 0.5 th/mm3 (0.0-0.9); Mono % (Auto) 6.7 % (0.0-8.0); Neut # (Auto) 4.9 th/mm3 (1.8-7.7); Neut % (Auto) 69.9 % (16.0-70.0); Platelet Count 33 th/mm3 (150-450); Red Blood Count 3.18 mil/mm3 (4.00-5.30); Red Cell Distribution Width 16.5 % (11.6-17.2)
[2018-03-13 04:39] LABS: Activated Partial Thrombo Time 56.9 sec (23.4-31.7); INR 2.5 Ratio; Prothrombin Time 25.5 sec (9.8-11.6)
[2018-03-13 05:01] LABS: Albumin 1.7 g/dL (3.4-5.0); Calcium 6.8 mg/dL (8.5-10.1); Carbon Dioxide 24.3 meq/L (21.0-32.0); Magnesium 3.5 mg/dL (1.5-2.5); Phosphorus 2.2 mg/dL (2.5-4.9); Total Protein 6.1 g/dL (6.4-8.2)
[2018-03-13] MEDS: Dextrose 5% in Water Inj 1,000 ML IV.CONT SCH (05:40)
[2018-03-13 08:11] LABS: Eosinophils 6 % (0-4); Lymphocytes 14 % (9-44); Monocytes 2 % (0-8)
[2018-03-13 08:14] LABS: Dohle Bodies Present; Toxic Granulation 1+
[2018-03-13] MEDS: Ferrous Sulfate 325 MG Tablet PO SCH ×3 (09:09→17:29)
[2018-03-13] MEDS: Phenytoin 50 MG Chewable Tablet G-TUBE SCH ×2 (09:09→20:43)
[2018-03-13] MEDS: Famotidine PF Inj 20 MG/2 ML Vial IV.PUSH SCH ×2 (09:10→20:42)
[2018-03-13] MEDS: Mirtazapine 15 MG Tablet PO SCH (09:10)
[2018-03-13] MEDS: Senna/Docusate Sodium 8.6/50 MG Tablet PO SCH ×2 (09:11→20:24)
[2018-03-13] MEDS ORDERED: Dextrose 50% in Water 50 ML Vial IV.PUSH PRN (09:53)
--- NOTE | 2018-03-13 10:00 | P.PNCC ---
Subjective Subjective Remarks/Hospital Course: 72-year-old female presents for evaluation of shortness of breath. Patient comes from an SNF. She has history of CVA with right-sided hemiparesis, seizure disorder, hypertension, asthma, schizoaffective disorder, dementia, heart failure. According to EMS, they were called for shortness of breath. However, her oxygen saturations were 97% on oxygen. Appears to be at her baseline according to EMS. She is slightly tachycardic, 110-120. According to records, she is on Coumadin. Patient is unable to contribute any history or physical. According to SNF records, she is currently on Levaquin for congestion. In the emergency department she was found to have a sodium level of 178/180 and has been admitted to ICU. 03/13: Serum sodium and osmolality status. Renal function is responding appropriately to the hypotonic fluid resuscitation. We will start to replace potassium now this allowing us to become more aggressive with glucose control. Objective Vital Signs / I&O: Vital Signs 03/12/18 10:00 03/12/18 10:15 03/12/18 11:00 Temperature Pulse Rate 92 H 90 89 Respiratory Rate 18 17 19 Blood Pressure 111/53 L 113/60 103/56 L Pulse Oximetry 96 96 95 03/12/18 11:19 03/12/18 12:00 03/12/18 13:00 Temperature 98.4 F Pulse Rate 95 H 87 Respiratory Rate 18 15 Blood Pressure 114/58 L 113/54 L Pulse Oximetry 95 95 95 03/12/18 14:00 03/12/18 15:00 03/12/18 16:00 Temperature 98.5 F Pulse Rate 94 H 93 H 96 H Respiratory Rate 22 33 H 32 H Blood Pressure 116/58 L 136/63 Pulse Oximetry 97 98 03/12/18 16:08 03/12/18 16:31 03/12/18 17:00 Temperature Pulse Rate 95 H 96 H 98 H Respiratory Rate 32 H 19 19 Blood Pressure 122/54 L 125/58 L Pulse Oximetry 77 L 99 03/12/18 18:00 03/12/18 19:00 03/12/18 20:00 Temperature 98.2 F Pulse Rate 97 H 98 H 96 H Respiratory Rate 18 18 21 Blood Pressure 128/57 L 126/58 L 124/58 L Pulse Oximetry 96 100 99 03/12/18 20:10 03/12/18 21:00 03/12/18 22:00 Temperature Pulse Rate 96 H 102 H 102 H Respiratory Rate 20 19 31 H Blood Pressure 139/59 L 122/58 L Pulse Oximetry 100 100 99 03/12/18 23:00 03/13/18 00:00 03/13/18 01:00 Temperature 98.6 F Pulse Rate 100 H 101 H 100 H Respiratory Rate 21 25 H 28 H Blood Pressure 133/61 121/55 L 120/59 L Pulse Oximetry 99 100 99 03/13/18 02:00 03/13/18 03:00 03/13/18 03:50 Temperature Pulse Rate 97 H 98 H 97 H Respiratory Rate 20 21 16 Blood Pressure 126/65 111/56 L Pulse Oximetry 99 100 03/13/18 04:00 03/13/18 05:00 03/13/18 05:01 Temperature Pulse Rate 100 H 104 H 105 H Respiratory Rate 24 21 28 H Blood Pressure 120/51 L 122/56 L Pulse Oximetry 100 100 100 03/13/18 06:00 03/13/18 07:00 03/13/18 08:00 Temperature 98.7 F Pulse Rate 101 H 99 H 101 H Respiratory Rate 21 20 20 Blood Pressure 124/56 L 121/60 125/81 Pulse Oximetry 100 100 100 03/13/18 09:00 03/13/18 09:35 Temperature Pulse Rate 102 H 100 H Respiratory Rate 17 Blood Pressure Pulse Oximetry Intake & Output 03/12/18 03/13/18 03/13/18 18:59 06:59 18:59 Intake Total 1404 / 1404 4109 / 4109 Output Total 600 / 600 Balance 1404 / 1404 3509 / 3509 Weight 87.6 kg Intake: IV 350 / 350 2350 / 2350 D5W Inj 1,000 ML @ 125 mls/hr 1999 / 1999 IV.CONT .Q8H CELESTE Rx#:[id number] Azithromycin Inj 500 MG In NS 250 / 250 Inj 250 ML @ 250 mls/hr IV.SIG Q24H [facility] Rx#:[id number] Zosyn 3.375 GM Premix 50 ML @ 100 / 100 100 / 100 100 mls/hr IV.SIG Q6H [facility] Rx#: [id number] Vancomycin Inj 1,000 MG In NS 250 / 250 Inj 250 ML @ 250 mls/hr IV.SIG ONCE ONE Rx#:[id number] Tube Feeding 154 / 154 559 / 559 Water Bolus Amount 900 / 900 1200 / 1200 Output: Urine 600 / 600 Other: # Voids 2 # Incontinent Voids 2 Date of Last Bowel Movement 03/12/18 03/12/18 03/12/18 # Bowel Movements 3 # Incontinent Bowel Movements 3 Weight On Admission 82.4 kg Result Diagrams: 03/13/18 03:48 03/13/18 03:48 Objective Remarks: - Constitutional chronically ill appearing, confused - Routine HEENT Exam Head: Present: normocephalic Eye: Present: normal accommodation. Absent: scleral injection, conjunctivae pink ENT: Present: mucous membranes dry - Routine Neck Exam Present: supple. Airway widely patent, no obstruction absent: JVD, carotid bruit - Routine Chest/Breast/Axilla Exam Chest wall: Absent: tenderness, mass - Routine Respiratory Exam Present: Scattered rhonchi, no crackles. Absent: accessory muscle use, stridor , wheezes - Routine Cardiovascular Exam Present: RRR, S1, S2, no JVD - Routine Abdominal Exam Present: soft, normoactive bowel sounds. No guarding or tenderness - Routine Extremities Exam Absent: cyanosis, clubbing, edema - Routine Skin Exam Absent: intact, cyanosis, erythema - Routine Neurological Exam Present: altered mental status, chronic hemiparesis, confused Assessment and Plan - Assessment and Plan Plan: Pneumonia -Healthcare associated -Zosyn, azithromycin, vancomycin -Follow-up cultures and de-escalate -DuoNeb's as needed -Repeat CXR a.m. Hypernatremia -Severe dehydration -D5 half NS IV fluid resuscitation -> D5W -Free water Via G-tube -Strict I's and O's -Monitor trend Dysphagia -G-tube feeding Anemia -Iron supplement Seizure disorder -Keppra -Dilantin, check level Dyslipidemia -Pravastatin Hypertension -Hold home meds while suspected sepsis -Resume when indicated History of left MCA CVA -Coumadin dosing per pharmacy DVT GI prophylaxis -Teds SCDs -Coumadin -Pepcid Overall impression: Severe electrolyte abnormalities associated with acute kidney injury, dehydration.
[2018-03-13] MEDS: KCL 20 mEq/Dextrose 5% Inj 1,000 ML IV.CONT SCH (12:12)
[2018-03-13] MEDS: Insulin NovoLOG Aspart Correctional Sugar Inj SQ SCH ×3 (12:16→20:24)
[2018-03-13] MEDS: Potassium Chloride 25 MEQ Effervescent Tablet PO SCH ×2 (14:12→20:43)
[2018-03-14] MEDS: Azithromycin Inj 500 MG in Sodium Chlor 0.9% Inj 250 ML IV.SIG SCH (01:06)
[2018-03-14] MEDS: Piperacil/Tazo 3.375 GM Premix 50 ML IV.SIG SCH ×2 (02:07→08:26)
[2018-03-14] MEDS: Chlorhexidine Gluconate 2% 1 Pack (2 Cloths) TOPICAL SCH (03:00)
[2018-03-14 04:39] LABS: INR 1.8 Ratio; Prothrombin Time 17.8 sec (9.8-11.6)
[2018-03-14 05:00] LABS: Magnesium 3.3 mg/dL (1.5-2.5); Potassium 3.2 meq/L (3.5-5.1); Vancomycin,Random 16.1 Comment
[2018-03-14] MEDS: Potassium Chloride 25 MEQ Effervescent Tablet PO SCH ×2 (08:25→23:09)
[2018-03-14] MEDS: Ferrous Sulfate 325 MG Tablet PO SCH ×3 (08:26→17:20)
[2018-03-14] MEDS: Mirtazapine 15 MG Tablet PO SCH (08:26)
[2018-03-14] MEDS: Phenytoin 50 MG Chewable Tablet G-TUBE SCH ×2 (08:27→23:07)
[2018-03-14] MEDS: Famotidine PF Inj 20 MG/2 ML Vial IV.PUSH SCH (08:29)
[2018-03-14] MEDS: Senna/Docusate Sodium 8.6/50 MG Tablet PO SCH ×2 (08:30→23:08)
[2018-03-14] MEDS: Insulin NovoLOG Aspart Correctional Sugar Inj SQ SCH ×3 (08:58→17:01)
[2018-03-14] MEDS ORDERED: Vancomycin Inj 2,000 MG in Sodium Chlor 0.9% Inj 500 ML IV.SIG ONE (12:00)
--- NOTE | 2018-03-14 14:04 | P.PNIM ---
Subjective Interval history: Garbled speech, no fever overnight Physical Exam Vital signs: Last Vital Signs Temp 98.3 F 03/14/18 12:00 Pulse 110 H 03/14/18 12:00 Resp 34 H 03/14/18 12:00 BP 114/55 L 03/14/18 12:00 Pulse Ox 97 03/14/18 12:00 Intake & Output 03/12/18 03/13/18 03/14/18 03/15/18 06:59 06:59 06:59 06:59 Intake Total 1350 / 1350 5513 / 5513 1840 / 1840 Output Total 600 / 600 1700 / 1700 Balance 1350 / 1350 4913 / 4913 140 / 140 Weight 82.4 kg 87.6 kg 87.4 kg Narrative: GENERAL: This is a ill appearing, well-developed patient, in no apparent distress laying in bed. CARDIOVASCULAR: Regular rate and rhythm RESPIRATORY: Relatively clear GASTROINTESTINAL: Abdomen soft, non-tender, nondistended. Normal active bowel sounds G-tube in place MUSCULOSKELETAL: Extremities without clubbing, cyanosis, or edema. NEURO: garbled speech with aphasia, chronic hemiparalysis on the right, continues to be confused. Results Labs CBC & Chem 7: 03/13/18 03:48 03/14/18 04:08 Labs: Microbiology 03/11/18 23:26 Blood - Peripheral Aerobic Blood Culture - Preliminary No growth in 3 days 03/11/18 23:26 Blood - Peripheral Anaerobic Blood Culture - Preliminary No growth in 3 days 03/11/18 23:26 Blood - Peripheral Aerobic Blood Culture - Preliminary No growth in 3 days 03/11/18 23:26 Blood - Peripheral Anaerobic Blood Culture - Preliminary No growth in 3 days Assessment and Plan (1) Severe sepsis: Code(s): A41.9 - Sepsis, unspecified organism; R65.20 - Severe sepsis without septic shock Status: Acute (2) Healthcare-associated pneumonia: Code(s): J18.9 - Pneumonia, unspecified organism Status: Acute (3) Acute hypernatremia: Code(s): E87.0 - Hyperosmolality and hypernatremia Status: Acute Plan 72-year-old female with a history of CVA with right-sided hemiparesis was sent from a local snf facility for evaluation for acute shortness of breath 1. Severe sepsis present on admission with fever, leukocytosis tachycardia with Health care associated pneumoniacurrently on vancomycin, will add cefepime and Zithromax to the regimen 2. Hypernatremia due to severe dehydration -trending down Change D 5W with potassium supplements Free water increased to 300 mls every 4 hours 3. History of dysphasiacontinue tube feeding through G-tube 4. Seizure disorder, chronic continue with Keppra and Dilantin 5. Hypertension, hold antihypertensives for now due to sepsis 6. History of left MCA CVACoumadin was on hold due to elevated INR, today's INR is 1.8 however due to the drop to platelets 233 was still hold Coumadin to prevent acute bleeding, continue physical therapy as tolerated. 7. Thrombocytopeniacontinue drop in platelets likely could be due to sepsis however will discontinue Pepcid and obtain a hematology consultation. Coumadin will be on hold again today until evaluated by hematology. 8. DVT prophylaxisCoumadin on hold due to thrombocytopenia, INR today 1.8 9. GI prophylaxis will use PPI 10. Acute renal failure superimposed on likely chronic kidney disease stage I- may be due to sepsis however continue IV fluid hydration, avoid nephrotoxins. Transfer out of intensive care unit
[2018-03-14] MEDS: Lansoprazole ODT 15 MG Tablet NG/OG SCH (16:30)
[2018-03-14 16:38] LABS: Haptoglobin 133 mg/dL (30-200); Lactate Dehydrogenase 470 U/L (84-246); Vitamin B12 1577 pg/mL (193-986)
[2018-03-14] MEDS: KCL 20 mEq/Dextrose 5% Inj 1,000 ML IV.CONT SCH (16:57)
--- NOTE | 2018-03-14 17:25 | MB ---
cc: Melanie Jaime MD DATE: 03/14/2018 CHIEF COMPLAINT: Thrombocytopenia. HISTORY OF PRESENT ILLNESS: Ms. Florence Childress is a 72-year-old lady with a history of chronic kidney disease, stroke, acid reflux, hypertension, irritable bowel syndrome, schizoaffective disorder, vascular dementia, who was admitted to our hospital on 03/12/2018 from her longterm facility for progressively worsening shortness of breath. EMS evaluation showed oxygen saturation of 97% and she was found to be tachycardic with heart rate between 110-120. She was also found to have a sodium level of 178 and was admitted to the intensive care unit. Hypernatremia was due to severe dehydration and she was given free water via her G-tube and D5 half normal saline. She was also treated with IV antibiotic therapy of Zosyn, azithromycin and vancomycin for pneumonia. She was continued on tube feeding for her dysphagia. She has since been transferred out of the intensive care unit. The majority of information is obtained from chart review as the patient is unable to answer. REVIEW OF SYSTEMS: Unable to obtain. PAST MEDICAL HISTORY: Stroke with right-sided hemiparesis, seizure, hypertension, asthma, schizoaffective disorder, dementia, heart failure, hypertension. PAST SURGICAL HISTORY: Status post PEG tube placement. FAMILY HISTORY: Unable to obtain. SOCIAL HISTORY: Unable to obtain. HOSPITAL MEDICATIONS: Include: 1. DuoNeb. 2. Azithromycin. 3. Cefepime. 4. Famotidine. 5. Lansoprazole. 6. Keppra. 7. Remeron. 8. Phenytoin. 9. Zosyn. LABORATORY STUDIES: White blood cell count 7, hemoglobin 9.5, platelet count is 33,000 white blood cell count on admission is 12. Prior CBC with white blood cell count that is intermittently elevated during acute hospitalizations and then returns to normal. Differential with a bandemia that is present as well as toxic granulation and dual bodies. Hemoglobin currently 9.5, within normal limits on admission, again in the past with values from 2017, her hemoglobin has dipped down, but then does return to normal when she is not acutely hospitalized. Platelet count in the past has been within normal limits with values from June and August 2016 values from late 2016 and August 2017 with a hemoglobin that was 69,000 and then a value of 93,000. She has also been low in the past, presumably during hospitalizations. Coags with a PT that is prolonged at 17.8, INR of 1.8, PTT from admission is 56.9. Chemistry studies with a sodium level of 163, potassium 3.2, creatinine is 2.4 with past levels that have been within normal limits. Total bilirubin is 0.9, AST is 44, ALT is 31. PHYSICAL EXAMINATION: VITAL SIGNS: Temperature 98.3, heart rate 104, respiratory rate 34, blood pressure 114/55. GENERAL: Chronically ill-appearing lady. CARDIOVASCULAR: Tachycardic in the low 100s. RESPIRATORY: Clear to auscultation bilaterally. ABDOMEN: Soft, nontender, nondistended. PEG tube in place. EXTREMITIES: NEUROLOGIC: Residual effects from stroke. She is oriented to person and place. MUSCULOSKELETAL: With a loss of muscle tone. PSYCHIATRIC: Poor recent and remote memory. IMPRESSION AND PLAN: Thrombocytopenia in an elderly lady with baseline thrombocytopenia, admitted with sepsis, currently on broad spectrum antibiotics. She has not been exposed to heparin. Thrombocytopenia is not due to heparin-induced thrombocytopenia. No history of venous thromboembolism so unlikely to be due to antiphospholipid antibody syndrome. We will check fibrinogen to evaluate for disseminated intravascular coagulation possible some contribution given sepsis. We will check LDH and haptoglobin, although likely had a thrombotic microangiopathy as well. Patient could have a baseline bone marrow dysfunction given baseline thrombocytopenia, we will also evaluate the liver and the spleen. Feel that the most likely contributing effect is bacterial infection and sepsis, which can cause thrombocytopenia by direct bone marrow suppression. Will continue to monitor counts closely. Melanie Jaime MD PANTERA/ct , 03:30 PM , 03:41 PM SERGEY
[2018-03-14 18:22] LABS: Baso % (Auto) 0.2 % (0.0-2.0); Eos # (Auto) 0.3 th/mm3 (0.0-0.4); Eos % (Auto) 4.2 % (0.0-4.0); Hematocrit 27.6 % (35.0-46.0); Hemoglobin 8.9 gm/dL (11.6-15.3); Lymph # (Auto) 1.2 th/mm3 (1.0-4.8); Lymph % (Auto) 17.2 % (9.0-44.0); Mean Corpuscular HGB Conc 32.3 % (32.0-36.0); Mean Corpuscular Hemoglobin 29.7 pg (27.0-34.0); Mean Corpuscular Volume 91.8 fL (80.0-100.0); Mean Platelet Volume 12.9 fL (7.0-11.0); Mono # (Auto) 0.6 th/mm3 (0.0-0.9); Mono % (Auto) 9.2 % (0.0-8.0); Neut # (Auto) 4.7 th/mm3 (1.8-7.7); Neut % (Auto) 69.2 % (16.0-70.0); Platelet Count 45 th/mm3 (150-450); Red Blood Count 3.01 mil/mm3 (4.00-5.30); Red Cell Distribution Width 15.6 % (11.6-17.2); White Blood Count 6.8 th/mm3 (4.0-11.0)
[2018-03-14 18:54] LABS: RBC Morphology Normal (Normal)
[2018-03-15] MEDS: Insulin NovoLOG Aspart Correctional Sugar Inj SQ SCH ×5 (00:24→23:31)
[2018-03-15] MEDS: Azithromycin Inj 500 MG in Sodium Chlor 0.9% Inj 250 ML IV.SIG SCH (02:07)
[2018-03-15] MEDS: KCL 20 mEq/Dextrose 5% Inj 1,000 ML IV.CONT SCH ×2 (05:39→22:49)
[2018-03-15] MEDS: Chlorhexidine Gluconate 2% 1 Pack (2 Cloths) TOPICAL SCH (05:40)
[2018-03-15] MEDS: Potassium Chloride 25 MEQ Effervescent Tablet PO SCH ×2 (08:48→22:50)
[2018-03-15] MEDS: Lansoprazole ODT 15 MG Tablet NG/OG SCH (08:49)
[2018-03-15] MEDS: Senna/Docusate Sodium 8.6/50 MG Tablet PO SCH ×2 (08:49→22:51)
[2018-03-15] MEDS: Phenytoin 50 MG Chewable Tablet G-TUBE SCH ×2 (08:49→22:51)
[2018-03-15] MEDS: Ferrous Sulfate 325 MG Tablet PO SCH ×3 (08:49→17:33)
[2018-03-15] MEDS: Mirtazapine 15 MG Tablet PO SCH (08:50)
[2018-03-15 09:42] LABS: Baso % (Auto) 0.2 % (0.0-2.0); Eos # (Auto) 0.2 th/mm3 (0.0-0.4); Eos % (Auto) 3.7 % (0.0-4.0); Hematocrit 26.2 % (35.0-46.0); Hemoglobin 8.4 gm/dL (11.6-15.3); Lymph # (Auto) 1.3 th/mm3 (1.0-4.8); Lymph % (Auto) 21.1 % (9.0-44.0); Mean Corpuscular Hemoglobin 29.9 pg (27.0-34.0); Mean Corpuscular Volume 93.6 fL (80.0-100.0); Mean Platelet Volume 12.4 fL (7.0-11.0); Mono # (Auto) 0.5 th/mm3 (0.0-0.9); Mono % (Auto) 8.1 % (0.0-8.0); Neut # (Auto) 4.2 th/mm3 (1.8-7.7); Neut % (Auto) 66.9 % (16.0-70.0); Platelet Count 41 th/mm3 (150-450); White Blood Count 6.3 th/mm3 (4.0-11.0)
[2018-03-15 09:46] LABS: INR 1.5 Ratio; Prothrombin Time 15.3 sec (9.8-11.6)
[2018-03-15 10:07] LABS: Magnesium 3.1 mg/dL (1.5-2.5); Potassium 4.4 meq/L (3.5-5.1)
--- NOTE | 2018-03-15 12:18 | P.PNONC ---
Subjective Interval history: Afebrile Patient has right nare mild epistaxis This seems to be provoked as she has blood underneath the fingernail No other bleeding Per RN, she has been refusing ultrasound Objective Vital Signs/Intake & Output: Vital Signs 03/14/18 14:00 03/14/18 16:00 03/14/18 20:00 Temperature 97.9 F 97.8 F Pulse Rate 108 H 114 H 116 H Respiratory Rate 16 18 Blood Pressure 137/63 117/62 Pulse Oximetry 96 96 03/14/18 21:37 03/14/18 22:00 03/15/18 00:00 Temperature 97.6 F Pulse Rate 101 H 116 H 116 H Respiratory Rate 24 18 Blood Pressure 98/52 L Pulse Oximetry 99 97 03/15/18 00:37 03/15/18 02:00 03/15/18 03:08 Temperature Pulse Rate 105 H 116 H 116 H Respiratory Rate 20 Blood Pressure Pulse Oximetry 03/15/18 03:59 03/15/18 04:00 03/15/18 08:00 Temperature 97.6 F 98.9 F Pulse Rate 103 H 116 H 110 H Respiratory Rate 20 18 18 Blood Pressure 115/57 L 100/71 Pulse Oximetry 95 95 03/15/18 10:00 Temperature Pulse Rate 110 H Respiratory Rate Blood Pressure Pulse Oximetry Intake & Output 03/14/18 03/15/18 03/15/18 18:59 06:59 18:59 Intake Total 670 / 670 1450 / 1450 Balance 670 / 670 1450 / 1450 Weight 192 lb 10.944 oz Intake: IV 670 / 670 1450 / 1450 D5W + KCL 20 mEq Inj 1,000 ML @ 1000 / 1000 75 mls/hr IV.CONT .[id number] SHARMILA Rx#:[id number] Azithromycin Inj 500 MG In NS 250 / 250 Inj 250 ML @ 250 mls/hr IV.SIG Q24H SH[facility] Rx#:[id number] Maxipime Inj 1,000 MG In NS Inj 100 / 100 200 / 200 100 ML @ 200 mls/hr IV.SIG Q8H SH[facility] Rx#:[id number] Zosyn 3.375 GM Premix 50 ML @ 50 / 50 100 mls/hr IV.SIG Q6H SHARMILA Rx#: [id number] Vancomycin Inj 2,000 MG In NS 520 / 520 Inj 500 ML @ 250 mls/hr IV.SIG ONCE ONE Rx#:[id number] Other: # Voids 2 1 Date of Last Bowel Movement 03/14/18 03/15/18 # Bowel Movements 1 Result Diagrams: 03/15/18 09:22 03/15/18 09:22 Laboratory Results: Laboratory Results - last 24 hr 03/14/18 03/14/18 03/14/18 04:08 17:01 18:11 WBC 6.8 RBC 3.01 L Hgb 8.9 L Hct 27.6 L MCV 91.8 D MCH 29.7 MCHC 32.3 RDW 15.6 Plt Count 45 L D MPV 12.9 H Prelim Diff (Auto) Slide review pending Neut % (Auto) 69.2 Lymph % (Auto) 17.2 [place] % (Auto) 9.2 H Eos % (Auto) 4.2 H Baso % (Auto) 0.2 Neut # (Auto) 4.7 Lymph # (Auto) 1.2 [place] # (Auto) 0.6 Eos # (Auto) 0.3 Baso # (Auto) 0.0 WBC Differential . Diff Scan Auto diff confirmed Differential Comment . Platelet Estimate Low L Platelet Morphology Enlarged H RBC Morphology Normal Smear Path Review Haptoglobin 133 PT INR Fibrinogen Sodium Potassium Chloride Carbon Dioxide Anion Gap BUN Creatinine Estimated GFR POC Glucose 129 H Random Glucose Calcium Magnesium Lactate Dehydrogenase 470 H Vitamin B12 1577 H Folate Greater than 20.0 H 03/14/18 03/14/18 03/15/18 18:11 23:35 07:28 WBC RBC Hgb Hct MCV MCH MCHC RDW Plt Count MPV Prelim Diff (Auto) Neut % (Auto) Lymph % (Auto) [place] % (Auto) Eos % (Auto) Baso % (Auto) Neut # (Auto) Lymph # (Auto) [place] # (Auto) Eos # (Auto) Baso # (Auto) WBC Differential Diff Scan Differential Comment Platelet Estimate Platelet Morphology RBC Morphology Smear Path Review Haptoglobin PT INR Fibrinogen 480 H Sodium Potassium Chloride Carbon Dioxide Anion Gap BUN Creatinine Estimated GFR POC Glucose 138 H 166 H Random Glucose Calcium Magnesium Lactate Dehydrogenase Vitamin B12 Folate 03/15/18 03/15/18 03/15/18 09:22 09:22 09:22 WBC 6.3 RBC 2.80 L Hgb 8.4 L Hct 26.2 L MCV 93.6 MCH 29.9 MCHC 32.0 RDW 16.0 Plt Count 41 L MPV 12.4 H Prelim Diff (Auto) Slide review pending Neut % (Auto) 66.9 Lymph % (Auto) 21.1 [place] % (Auto) 8.1 H Eos % (Auto) 3.7 Baso % (Auto) 0.2 Neut # (Auto) 4.2 Lymph # (Auto) 1.3 [place] # (Auto) 0.5 Eos # (Auto) 0.2 Baso # (Auto) 0.0 WBC Differential . Diff Scan Auto diff confirmed Differential Comment . Platelet Estimate Platelet Morphology RBC Morphology Smear Path Review Haptoglobin PT 15.3 H INR 1.5 Fibrinogen Sodium 162 H* Potassium 4.4 D Chloride 131 H Carbon Dioxide 22.0 Anion Gap 9 BUN 34 H Creatinine 2.37 H Estimated GFR 25 L POC Glucose Random Glucose 153 H Calcium 8.0 L Magnesium 3.1 H Lactate Dehydrogenase Vitamin B12 Folate Culture Results: Microbiology 03/11/18 23:26 Aerobic Blood Culture - Preliminary Blood - Peripheral No growth in 4 days Anaerobic Blood Culture - Preliminary No growth in 4 days 03/11/18 23:26 Aerobic Blood Culture - Preliminary Blood - Peripheral No growth in 4 days Anaerobic Blood Culture - Preliminary No growth in 4 days Medications: Active Medications Generic Name Dose Route Start Last Admin Trade Name Freq PRN Reason Stop Dose Admin Albuterol 1 ampul 03/12/18 04:00 03/15/18 07:59 Duoneb Neb (Sharmila) NEB Not Given Q6HR NEB SHARMILA Albuterol 1 ampul 03/12/18 00:53 03/15/18 00:36 Duoneb Neb (Prn) NEB 1 ampul Q2HR NEB PRN Administration SHORTNESS OF BREATH/WHEEZING Chlorhexidine Gluconate 3 pack 03/13/18 04:00 03/15/18 05:40 Chlorhexidine 2% Cloth TOPICAL 03/18/18 03:59 Not Given DAILY@0400 SHARMILA Ferrous Sulfate 325 mg 03/12/18 09:00 03/15/18 08:49 Ferosul PO 325 mg TID SHARMILA Administration Potassium Chloride/Dextrose 1,000 mls @ 75 mls/hr 03/13/18 11:00 03/15/18 05: 39 D5w + Kcl 20 Meq Inj IV.CONT 75 mls/hr .[id number] SHARMILA Administration Cefepime HCl 1,000 mg/ Sodium 100 mls @ 200 mls/hr 03/14/18 14:00 03/15/18 06 :10 Chloride IV.SIG Infused Q8H SHARMILA Infusion Azithromycin 500 mg/ Sodium 250 mls @ 250 mls/hr 03/15/18 01:00 03/15/18 03: 10 Chloride IV.SIG Infused Q24H SHARMILA Infusion Insulin Aspart 0 unit 03/13/18 12:00 03/15/18 08:51 Novolog Insulin Correctional Sugar Inj SQ 2 unit ACHS SHARMILA Administration Protocol Lansoprazole 15 mg 03/14/18 15:00 03/15/18 08:49 Prevacid Solutab NG/OG 15 mg DAILY SHARMILA Administration Levetiracetam 100 mg 03/12/18 09:00 03/15/18 08:50 Keppra Liq PO 100 mg BID SHARMILA Administration Mirtazapine 7.5 mg 03/12/18 09:00 03/15/18 08:50 Remeron PO 7.5 mg DAILY SHARMILA Administration Morphine Sulfate 2 mg 03/12/18 05:40 03/14/18 23:09 Morphine Inj IV.PUSH 2 mg Q2H PRN Administration PAIN SCALE 6 TO 10 Phenytoin 125 mg 03/12/18 09:00 03/15/18 08:49 Dilantin Infatabs Chewable G-TUBE 125 mg [facility] Administration Potassium Bicarb/Potassium Chloride 25 meq 03/13/18 13:00 03/15/18 08:48 K-Lyte Cl Eff PO 25 meq [facility] Administration Pravastatin Sodium 20 mg 03/12/18 09:00 03/15/18 08:49 Pravachol PO 20 mg [facility] Administration Senna/Docusate Sodium 1 tab 03/12/18 09:00 03/15/18 08:49 Whitney-Colace PO 1 tab [facility] Administration Sodium Chloride 2 ml 03/12/18 09:00 03/15/18 08:50 Ns Flush IV.FLUSH Not Given [facility] Triamcinolone Acetonide 1 applicatio 03/12/18 09:00 03/15/18 08:51 Aristocort 0.1% Cream TOPICAL Not Given [facility] Objective Remarks: GENERAL: Older chronically ill-appearing female resting in bed asleep in no acute distress SKIN: Warm and dry. HEAD: Normocephalic. Right nare epistaxis. This appears well controlled EYES: No scleral icterus. No injection or drainage. NECK: Supple, trachea midline. No JVD or lymphadenopathy. CARDIOVASCULAR: Regular rate and rhythm without murmurs. RESPIRATORY: Breath sounds equal bilaterally. No accessory muscle use. GASTROINTESTINAL: Abdomen soft, non-tender, nondistended. EXTREMITIES: No cyanosis, or edema. Right side hemiparesis MUSCULOSKELETAL: Adequate muscle tone. NEUROLOGICAL: Awakens easily. Follows commands. Nonverbal during my exam. Assessment/Plan - Plan 72-year-old female [facility] room for shortness of breath. She has history of CVA with right-sided hemiparesis, schizo-affective disorder, dementia and heart failure. Hematology consulted for thrombocytopenia 1. Thrombocytopenia likely due to infection. Patient is on broad-spectrum antibiotics. Haptoglobin is normal. Fibrinogen is elevated. Vitamin B12 and folate are elevated. 2. Patient had episode of epistaxis this morning however this seems to be provoked as she had blood underneath her fingernail. I have instructed the nurse to monitor for continued oozing. Hold platelet transfusion if bleeding stops. May need to restrain patient if she continues to provoke bleeding. 3. Continue to hold anticoagulation 4. Monitor CBC - Attending Statement The exam, history, and the medical decision-making described in the above note were completed with the assistance of the mid-level provider. I reviewed and agree with the findings presented. I attest that I had a [id number] encounter with the patient on the same day, and personally performed and documented my assessment and findings in the medical record. 72 yoF admitted with sepsis. Following for TCP. Fibrinogen WNL, no exposure to heparin, haptoglobin WNL. Continue to trend counts.
--- NOTE | 2018-03-15 12:28 | P.PNIM ---
Subjective Interval history: Patient had continued slurred speech and had refused abdominal ultrasound. Physical Exam Vital signs: Last Vital Signs Temp 98.9 F 03/15/18 08:00 Pulse 110 H 03/15/18 10:00 Resp 18 03/15/18 08:00 BP 100/71 03/15/18 08:00 Pulse Ox 95 03/15/18 08:00 Intake & Output 03/13/18 03/14/18 03/15/18 03/16/18 06:59 06:59 06:59 06:59 Intake Total 5513 / 5513 1840 / 1840 2119 / 0 Output Total 600 / 600 1700 / 1700 Balance 4913 / 4913 140 / 140 2119 / 2119 Weight 87.6 kg 87.4 kg 87.4 kg Narrative: GENERAL: This is a ill appearing, well-developed patient, in no apparent distress laying in bed. CARDIOVASCULAR: Regular rate and rhythm RESPIRATORY: Relatively clear GASTROINTESTINAL: Abdomen soft, non-tender, nondistended. Normal active bowel sounds G-tube in place MUSCULOSKELETAL: Extremities without clubbing, cyanosis, or edema. NEURO: garbled speech with aphasia, chronic hemiparalysis on the right, continues to be confused but more alert today. Results Labs CBC & Chem 7: 03/15/18 09:22 03/15/18 09:22 Labs: Microbiology 03/11/18 23:26 Blood - Peripheral Aerobic Blood Culture - Preliminary No growth in 4 days 03/11/18 23:26 Blood - Peripheral Anaerobic Blood Culture - Preliminary No growth in 4 days 03/11/18 23:26 Blood - Peripheral Aerobic Blood Culture - Preliminary No growth in 4 days 03/11/18 23:26 Blood - Peripheral Anaerobic Blood Culture - Preliminary No growth in 4 days Assessment and Plan (1) Severe sepsis: Code(s): A41.9 - Sepsis, unspecified organism; R65.20 - Severe sepsis without septic shock Status: Acute (2) Healthcare-associated pneumonia: Code(s): J18.9 - Pneumonia, unspecified organism Status: Acute (3) Acute hypernatremia: Code(s): E87.0 - Hyperosmolality and hypernatremia Status: Acute Plan 72-year-old female with a history of CVA with right-sided hemiparesis was sent from a local care home facility for evaluation for acute shortness of breath 1. Severe sepsis present on admission with fever, leukocytosis tachycardia with Health care associated pneumoniacurrently on vancomycin, cefepime and Zithromax 2. Hypernatremia due to severe dehydration -trending down Change D 5W with potassium supplements Free water increased to 500 mls every 6 hours 3. History of dysphasiacontinue tube feeding through G-tube 4. Seizure disorder, chronic continue with Keppra and Dilantin 5. Hypertension, hold antihypertensives for now due to sepsis 6. History of left MCA CVACoumadin was on hold due to elevated INR, today's INR is 1.5 however due to continued thrombocytopenia we will continue to hold Coumadin. 7. Thrombocytopeniapersists with today's platelets dropped to 41 likely could be due to sepsis. Appreciate hematology's evaluation and recommendations. Patient is refusing abdominal ultrasound for further evaluation of the spleen and liver 8. DVT prophylaxisCoumadin on hold due to thrombocytopenia, INR today 1.5 9. GI prophylaxis will use PPI 10. Acute renal failure superimposed on likely chronic kidney disease stage I- may be due to sepsis however continue IV fluid hydration, avoid nephrotoxins. Monitor creatinine closely while on antibiotics.
[2018-03-16] MEDS: Azithromycin Inj 500 MG in Sodium Chlor 0.9% Inj 250 ML IV.SIG SCH (01:57)
[2018-03-16] MEDS: Chlorhexidine Gluconate 2% 1 Pack (2 Cloths) TOPICAL SCH (05:44)
--- NOTE | 2018-03-16 06:39 | XR ---
EXAM DATE: 03/16/2018 6:25 AM EST AGE/SEX: 72 years / Female INDICATIONS: Congestion, short of breath CLINICAL DATA: This is the patient's subsequent encounter. Patient reports that signs and symptoms h ave been present for 3 days and indicates a pain score of Nonresponsive. MEDICAL/SURGICAL HISTORY: Sepsis. pneumonia Non-responsive. COMPARISON: C, CHEST 1V SINGLE AP, 03/11/2018. . FINDINGS: 2 AP views of the chest. Right-sided [id number] remains in place. Right lower lung zone opacity is again seen and unchanged. Left lung is clear. Cardiomediastinal silhouette unchanged. No evidence of pneumothorax. CONCLUSION: Right lower lung opacity unchanged. Electronically signed by: Bernard Lynn MD 03/16/2018 6:38 AM EST
[2018-03-16 06:57] LABS: Baso % (Auto) 0.2 % (0.0-2.0); Eos # (Auto) 0.3 th/mm3 (0.0-0.4); Eos % (Auto) 3.9 % (0.0-4.0); Hematocrit 24.3 % (35.0-46.0); Hemoglobin 7.8 gm/dL (11.6-15.3); Lymph # (Auto) 1.5 th/mm3 (1.0-4.8); Lymph % (Auto) 21.4 % (9.0-44.0); Mean Corpuscular HGB Conc 31.9 % (32.0-36.0); Mean Corpuscular Hemoglobin 30.3 pg (27.0-34.0); Mean Corpuscular Volume 94.7 fL (80.0-100.0); Mean Platelet Volume 11.8 fL (7.0-11.0); Mono # (Auto) 0.7 th/mm3 (0.0-0.9); Mono % (Auto) 9.4 % (0.0-8.0); Neut # (Auto) 4.6 th/mm3 (1.8-7.7); Neut % (Auto) 65.1 % (16.0-70.0); Platelet Count 44 th/mm3 (150-450); Red Blood Count 2.56 mil/mm3 (4.00-5.30); Red Cell Distribution Width 16.2 % (11.6-17.2)
[2018-03-16 06:58] LABS: Calcium 7.8 mg/dL (8.5-10.1); Carbon Dioxide 21.9 meq/L (21.0-32.0); Magnesium 2.9 mg/dL (1.5-2.5); Potassium 4.1 meq/L (3.5-5.1); Vancomycin,Random 22.1 Comment
[2018-03-16] MEDS: Lansoprazole ODT 15 MG Tablet NG/OG SCH (10:06)
[2018-03-16] MEDS: Ferrous Sulfate 325 MG Tablet PO SCH ×3 (10:06→17:47)
[2018-03-16] MEDS: KCL 20 mEq/Dextrose 5% Inj 1,000 ML IV.CONT SCH (10:06)
[2018-03-16] MEDS: Phenytoin 50 MG Chewable Tablet G-TUBE SCH ×2 (10:06→22:53)
[2018-03-16] MEDS: Senna/Docusate Sodium 8.6/50 MG Tablet PO SCH ×2 (10:07→22:54)
[2018-03-16] MEDS: Potassium Chloride 25 MEQ Effervescent Tablet PO SCH ×2 (10:07→22:53)
--- NOTE | 2018-03-16 10:12 | US ---
EXAM DATE: 03/16/2018 10:04 AM EST AGE/SEX: 72 years / Female INDICATIONS: Abnormal labs. CLINICAL DATA: This is the patient's initial encounter. Patient reports that signs and symptoms have been present for 3 days and indicates a pain score of Nonresponsive. MEDICAL/SURGICAL HISTORY: Gastroesophageal reflux disease. Hypertension. CKD. CVA. MRSA. Hypok alemia. IBS. . PEG placement. COMPARISON: [facility] [place], CT ABDOMEN & PELVIS W CONTRAST, 07/26/2016. . MEASUREMENTS: Liver:__ 15.0 cm. Common Bile Duct:__ Nonvisualized. Right Kidney:__ 7.5 x3.4 x 3.9 cm. FINDINGS: Limited examination due to patient's inability to cooperate with exam. Liver: Diffusely increased echogenicity with nodular contour. Portal Vein: Portal vein flow not visualized. Common Duct: Not well demonstrated. Gallbladder: Small echogenic foci in the gallbladder consistent with small gallstones. No significan t gallbladder wall thickening or pericholecystic fluid. Pancreas: Redemonstration of an anechoic simple appearing cystic lesion arising from the body of the pancreas which measures up to 6.9 x 6.2 x 6.6 cm. This previously measured 4.[address] exam. Right Kidney: Increased echotexture. No mass or hydronephrosis. Other: None. CONCLUSION: 1. Limited exam due to patient's inability to cooperate with examination. The common bile duct and p ortal vein are not visualized. 2. Cirrhotic appearing liver. 3. Cholelithiasis without sonographic evidence for cholecystitis. 4. Apparent interval enlargement of simple appearing pancreatic cyst. Interval change in size may be due to differences in technique (ultrasound versus CT). Electronically signed by: Manuelito Craft MD 03/16/2018 10:11 AM EST
--- NOTE | 2018-03-16 12:28 | P.PNIM ---
Subjective Interval history: Pulled out of her G-tube per nursing staff. Patient has continued to have blurred speech. Refused abdominal ultrasound yesterday. Patient seems slightly agitated today. Physical Exam Vital signs: Last Vital Signs Temp 98.1 F 03/16/18 04:00 Pulse 82 03/16/18 08:00 Resp 15 03/16/18 08:00 BP 124/58 L 03/16/18 08:00 Pulse Ox 100 03/16/18 08:00 Intake & Output 03/14/18 03/15/18 03/16/18 03/17/18 06:59 06:59 06:59 06:59 Intake Total 1840 / 1840 2120 / 2120 1450 / 1450 1000 / 1000 Output Total 1700 / 1700 Balance 140 / 140 2120 / 2120 1450 / 1450 1000 / 1000 Weight 87.4 kg 87.4 kg 87.4 kg Narrative: GENERAL: This is a ill appearing, well-developed patient, in no apparent distress laying in bed. CARDIOVASCULAR: Regular rate and rhythm RESPIRATORY: Relatively clear GASTROINTESTINAL: Abdomen soft, non-tender, nondistended. Normal active bowel sounds MUSCULOSKELETAL: Extremities without clubbing, cyanosis, or edema. NEURO: garbled speech with aphasia, chronic hemiparalysis on the right, continues to be confused Results Labs CBC & Chem 7: 03/16/18 05:29 03/16/18 05:29 Labs: Microbiology 03/11/18 23:26 Blood - Peripheral Aerobic Blood Culture - Final No growth in 5 days 03/11/18 23:26 Blood - Peripheral Anaerobic Blood Culture - Final No growth in 5 days 03/11/18 23:26 Blood - Peripheral Aerobic Blood Culture - Final No growth in 5 days 03/11/18 23:26 Blood - Peripheral Anaerobic Blood Culture - Final No growth in 5 days Imaging Imaging: Impressions Chest X-Ray 03/16/18 00:00 CONCLUSION: Right lower lung opacity unchanged. Liver Ultrasound 03/16/18 00:00 CONCLUSION: 1. Limited exam due to patient's inability to cooperate with examination. The common bile duct and portal vein are not visualized. 2. Cirrhotic appearing liver. 3. Cholelithiasis without sonographic evidence for cholecystitis. 4. Apparent interval enlargement of simple appearing pancreatic cyst. Interval change in size may be due to differences in technique (ultrasound versus CT). Assessment and Plan Plan 72-year-old female with a history of CVA with right-sided hemiparesis was sent from a local [facility] facility for evaluation for acute shortness of breath 1. Severe sepsis present on admission with fever, leukocytosis tachycardia with Health care associated pneumoniacurrently on vancomycin, cefepime and Zithromax 2. Hypernatremia due to severe dehydration -trending down and will monitor. Change D 5W with potassium supplements Free water increased to 500 mls every 6 hours 3. History of dysphasiacontinue tube feeding through G-tube, patient pulled out G-tube today we will insert NG tube until G-tube is able to be placed. Will consult GI however patient continues to have thrombocytopenia and elevated INR. 4. Seizure disorder, chronic continue with Keppra and Dilantin 5. Hypertension, hold antihypertensives for now due to sepsis 6. History of left MCA CVACoumadin was on hold due to elevated INR, today's INR is pending however due to continued thrombocytopenia and need to replace G- tube we will continue to hold Coumadin. 7. Thrombocytopeniapersists with today's platelets dropped to 44 likely could be due to sepsis. Appreciate hematology's evaluation and recommendations. Patient is refusing abdominal ultrasound for further evaluation of the spleen and liver 8. DVT prophylaxisCoumadin on hold due to thrombocytopenia, INR today is pending 9. GI prophylaxis will use PPI 10. Acute renal failure superimposed on likely chronic kidney disease stage I- may be due to sepsis however continue IV fluid hydration, avoid nephrotoxins. Monitor creatinine closely while on antibiotics. Patient shows some improvement with creatinine 1. 9 2 today. Discussed with son today over the phone who wants continued aggressive treatment for his mother. Continue full code. He wants to replace the G-tube and agrees always try if needed at this time. Due to patient's chronic debilitating status of previous CVA and current sepsis , will consult palliative care. Discharge Planning: Back to [facility] facility when stable.
[2018-03-16 13:51] LABS: INR 1.3 Ratio; Prothrombin Time 13.5 sec (9.8-11.6)
--- NOTE | 2018-03-16 14:12 | P.CONGI ---
History of Present Illness Consult date: 03/16/18 Consult reason: PEG tube replacement Patient pulled out PEG today Chief complaint: Sepsis; Pneumonia History of Present Illness: This patient is a 72-year-old female who presented to [facility] on 03/12/2018 from a intermediate facility. Patient has a medical history significant for CVA with right-sided hemiparesis, seizure disorder, hypertension ,'s asthma, schizoaffective disorder, dementia and heart failure. Patient had previously been on Coumadin for CVA but medication has been held since admission with last confirmed dose being on 03/12/2018. Our service has been consulted to evaluate patient replacement of PEG tube. Patient pulled out PEG tube this a.m. PEG tube noted to be 18 Armenian with 20 mL balloon. Site intact without drainage or bleeding noted. <Isi Koenig - Last Filed: 03/16/18 14:13> Review of Systems unobtainable due to mental condition, unobtainable due to mental status <Isi Koenig - Last Filed: 03/16/18 14:13> [facility] - History History Provided By: Kitchen Cleaner / EMT - Medical History Medical History: Medical History (Last Reviewed 03/15/18 @ 06:59 by Mello Frey) History of MRSA infection Onset Date: ~03/12/18 Agnosia Angina pectoris, unspecified Anxiety CKD (chronic kidney disease) CVA (cerebral vascular accident) Dysphagia Failure to thrive GERD (gastroesophageal reflux disease) Gastrointestinal tube present HTN (hypertension) Heart failure Hypokalemia IBS (irritable bowel syndrome) Schizoaffective disorder Vascular dementia with behavior disturbance - Surgical History Surgical History: Surgical History (Last Reviewed 03/15/18 @ 06:59 by Mello Frey) S/P percutaneous endoscopic gastrostomy (PEG) tube placement - Family History Family History: Family History (Last Updated 03/12/18 @ 03:31 by Jessica Sadler MD) Other Family history unknown - Tobacco History Second Hand Smoke Exposure: No Tobacco Use In Past 30 Days: No Smoking Status: Unknown if ever smoked - Alcohol History How Often Do You Have a Drink Containing Alcohol: Unable to Obtain - Substance Use History Substance History: Unable to Obtain - Travel History Recent Travel in the [place] Within the Last 8 Weeks: No Recent Travel Out of the Country Within the Last 8 Weeks: No - Immunization History Tetanus Immunization: Unable to Assess Hx Influenza Vaccine This Season: Unable to Assess <Isi Koenig - Last Filed: 03/16/18 14:13> - Medical History Medical History: Medical History (Last Reviewed 03/15/18 @ 06:59 by Mello Frey) History of MRSA infection Onset Date: ~03/12/18 Agnosia Angina pectoris, unspecified Anxiety CKD (chronic kidney disease) CVA (cerebral vascular accident) Dysphagia Failure to thrive GERD (gastroesophageal reflux disease) Gastrointestinal tube present HTN (hypertension) Heart failure Hypokalemia IBS (irritable bowel syndrome) Schizoaffective disorder Vascular dementia with behavior disturbance - Surgical History Surgical History: Surgical History (Last Reviewed 03/15/18 @ 06:59 by Mello Frey) S/P percutaneous endoscopic gastrostomy (PEG) tube placement - Family History Family History: Family History (Last Updated 03/12/18 @ 03:31 by Jessica Sadler MD) Other Family history unknown <Adams Mejia - Last Filed: 03/16/18 15:42> Medications and Allergies Active Medications: Active Medications Acetaminophen (Tylenol) 650 mg PO Q4H PRN PRN Reason: Temp > 100.4/pain Al Hydroxide/Mg Hydroxide (Milk Of Magnesia Liq) 30 ml PO Q12H PRN PRN Reason: Mild Constipation Albuterol (Duoneb Neb (Sharmila)) 1 ampul NEB Q6HR NEB [facility] Last Admin: 03/16/18 08:05 Dose: Not Given Albuterol (Duoneb Neb (Prn)) 1 ampul NEB Q2HR NEB PRN PRN Reason: SHORTNESS OF BREATH/WHEEZING Last Admin: 03/15/18 00:36 Dose: 1 ampul Bisacodyl (Dulcolax Supp) 10 mg RECTAL DAILY PRN PRN Reason: SEVERE CONSITIPATION Chlorhexidine Gluconate (Chlorhexidine 2% Cloth) 3 pack TOPICAL DAILY@0400 [facility] Stop: 03/18/18 03:59 Last Admin: 03/16/18 05:44 Dose: Not Given Chlorhexidine Gluconate (Chlorhexidine 2% Cloth) 3 pack TOPICAL DAILY@0400 PRN PRN Reason: Extra cloth needed Stop: 03/18/18 03:59 Dextrose (D50w Vial) 50 ml IV.PUSH UNSCH PRN PRN Reason: PER HYPOGLYCEMIA PROTOCOL Ferrous Sulfate (Ferosul) 325 mg PO TID [facility] Last Admin: 03/16/18 10:06 Dose: 325 mg Glucagon (Glucagon Inj) 1 mg OTHER PRN PRN PRN Reason: for Hypoglycemia Protocol Potassium Chloride/Dextrose (D5w + Kcl 20 Meq Inj) 1,000 mls @ 75 mls/hr IV.CONT .[id number] [facility] Last Admin: 03/16/18 10:06 Dose: 75 mls/hr Cefepime HCl 1,000 mg/ Sodium (Chloride) 100 mls @ 200 mls/hr IV.SIG Q8H [facility] Last Admin: 03/16/18 06:27 Dose: Not Given Azithromycin 500 mg/ Sodium (Chloride) 250 mls @ 250 mls/hr IV.SIG Q24H [facility] Last Infusion: 03/16/18 03:14 Dose: Infused Insulin Aspart (Novolog Insulin Correctional Sugar Inj) 0 unit SQ ACHS [facility]; Protocol Last Admin: 03/15/18 23:31 Dose: Not Given Lactulose (Lactulose Liq) 30 ml PO DAILY PRN PRN Reason: SEVERE CONSITIPATION Lansoprazole (Prevacid Solutab) 15 mg NG/OG DAILY [facility] Last Admin: 03/16/18 10:06 Dose: 15 mg Levetiracetam (Keppra Liq) 100 mg PO BID [facility] Last Admin: 03/16/18 10:07 Dose: 100 mg Mirtazapine (Remeron) 7.5 mg PO HS [facility] Miscellaneous (Pill Splitter) 1 each OTHER UNSCH PRN PRN Reason: SEE LABEL Ondansetron HCl (Zofran Inj) 4 mg IV.PUSH Q6H PRN PRN Reason: NAUSEA OR VOMITING Pharmacy Profile Note (Vancomycin Consult Pharmacy) 1 each OTHER UNSCH PRN PRN Reason: PHARMACY CONSULT Pharmacy Profile Note (Coumadin Consult Pharmacy) 1 each OTHER UNSCH PRN PRN Reason: PHARMACY DOCUMENTATION Phenytoin (Dilantin Infatabs Chewable) 125 mg G-TUBE BID [facility] Last Admin: 03/16/18 10:06 Dose: 125 mg Potassium Bicarb/Potassium Chloride (K-Lyte Cl Eff) 25 meq PO BID [facility] Last Admin: 03/16/18 10:07 Dose: 25 meq Pravastatin Sodium (Pravachol) 20 mg PO BID [facility] Last Admin: 03/16/18 10:06 Dose: 20 mg Senna/Docusate Sodium (Whitney-Colace) 1 tab PO BID [facility] Last Admin: 03/16/18 10:07 Dose: 1 tab Sennosides (Senokot) 17.2 mg PO Q12H PRN PRN Reason: Moderate Constipation Sodium Chloride (Ns Flush) 2 ml IV.FLUSH BID [facility] Last Admin: 03/16/18 10:08 Dose: 2 ml Sodium Chloride (Ns Flush) 2 ml IV.FLUSH PRN PRN PRN Reason: FLUSH AFTER USING IV ACCESS Sterile Water (Free Water) 500 ml G-TUBE Q6H@,, [facility] Triamcinolone Acetonide (Aristocort 0.1% Cream) 1 applicatio TOPICAL BID [facility] Last Admin: 03/16/18 10:07 Dose: 1 applicatio Warfarin Sodium (Coumadin) 7.5 mg PO MoWeFr@1600 [facility] Warfarin Sodium (Coumadin) 10 mg PO TuThSa@1600 [facility] <Isi Koenig - Last Filed: 03/16/18 14:13> Active Medications: Active Medications Acetaminophen (Tylenol) 650 mg PO Q4H PRN PRN Reason: Temp > 100.4/pain Al Hydroxide/Mg Hydroxide (Milk Of Magnesia Liq) 30 ml PO Q12H PRN PRN Reason: Mild Constipation Albuterol (Duoneb Neb (Sharmila)) 1 ampul NEB Q6HR NEB [facility] Last Admin: 03/16/18 08:05 Dose: Not Given Albuterol (Duoneb Neb (Prn)) 1 ampul NEB Q2HR NEB PRN PRN Reason: SHORTNESS OF BREATH/WHEEZING Last Admin: 03/15/18 00:36 Dose: 1 ampul Bisacodyl (Dulcolax Supp) 10 mg RECTAL DAILY PRN PRN Reason: SEVERE CONSITIPATION Chlorhexidine Gluconate (Chlorhexidine 2% Cloth) 3 pack TOPICAL DAILY@0400 [facility] Stop: 03/18/18 03:59 Last Admin: 03/16/18 05:44 Dose: Not Given Chlorhexidine Gluconate (Chlorhexidine 2% Cloth) 3 pack TOPICAL DAILY@0400 PRN PRN Reason: Extra cloth needed Stop: 03/18/18 03:59 Dextrose (D50w Vial) 50 ml IV.PUSH UNSCH PRN PRN Reason: PER HYPOGLYCEMIA PROTOCOL Ferrous Sulfate (Ferosul) 325 mg PO TID [facility] Last Admin: 03/16/18 14:30 Dose: Not Given Glucagon (Glucagon Inj) 1 mg OTHER PRN PRN PRN Reason: for Hypoglycemia Protocol Potassium Chloride/Dextrose (D5w + Kcl 20 Meq Inj) 1,000 mls @ 75 mls/hr IV.CONT .[id number] [facility] Last Admin: 03/16/18 10:06 Dose: 75 mls/hr Cefepime HCl 1,000 mg/ Sodium (Chloride) 100 mls @ 200 mls/hr IV.SIG Q8H [facility] Last Admin: 03/16/18 14:57 Dose: 200 mls/hr Azithromycin 500 mg/ Sodium (Chloride) 250 mls @ 250 mls/hr IV.SIG Q24H [facility] Last Infusion: 03/16/18 03:14 Dose: Infused Insulin Aspart (Novolog Insulin Correctional Sugar Inj) 0 unit SQ ACHS [facility]; Protocol Last Admin: 03/16/18 14:29 Dose: Not Given Lactulose (Lactulose Liq) 30 ml PO DAILY PRN PRN Reason: SEVERE CONSITIPATION Lansoprazole (Prevacid Solutab) 15 mg NG/OG DAILY [facility] Last Admin: 03/16/18 10:06 Dose: 15 mg Levetiracetam (Keppra Liq) 100 mg PO BID [facility] Last Admin: 03/16/18 10:07 Dose: 100 mg Mirtazapine (Remeron) 7.5 mg PO HS [facility] Miscellaneous (Pill Splitter) 1 each OTHER UNSCH PRN PRN Reason: SEE LABEL Ondansetron HCl (Zofran Inj) 4 mg IV.PUSH Q6H PRN PRN Reason: NAUSEA OR VOMITING Pharmacy Profile Note (Vancomycin Consult Pharmacy) 1 each OTHER UNSCH PRN PRN Reason: PHARMACY CONSULT Pharmacy Profile Note (Coumadin Consult Pharmacy) 1 each OTHER UNSCH PRN PRN Reason: PHARMACY DOCUMENTATION Phenytoin (Dilantin Infatabs Chewable) 125 mg G-TUBE BID [facility] Last Admin: 03/16/18 10:06 Dose: 125 mg Potassium Bicarb/Potassium Chloride (K-Lyte Cl Eff) 25 meq PO BID [facility] Last Admin: 03/16/18 10:07 Dose: 25 meq Pravastatin Sodium (Pravachol) 20 mg PO BID [facility] Last Admin: 03/16/18 10:06 Dose: 20 mg Senna/Docusate Sodium (Whitney-Colace) 1 tab PO BID [facility] Last Admin: 03/16/18 10:07 Dose: 1 tab Sennosides (Senokot) 17.2 mg PO Q12H PRN PRN Reason: Moderate Constipation Sodium Chloride (Ns Flush) 2 ml IV.FLUSH BID [facility] Last Admin: 03/16/18 10:08 Dose: 2 ml Sodium Chloride (Ns Flush) 2 ml IV.FLUSH PRN PRN PRN Reason: FLUSH AFTER USING IV ACCESS Sterile Water (Free Water) 500 ml G-TUBE Q6H@,, [facility] Triamcinolone Acetonide (Aristocort 0.1% Cream) 1 applicatio TOPICAL BID [facility] Last Admin: 03/16/18 10:07 Dose: 1 applicatio Warfarin Sodium (Coumadin) 7.5 mg PO MoWeFr@1600 [facility] Warfarin Sodium (Coumadin) 10 mg PO TuThSa@1600 [facility] <Adams Mejia A - Last Filed: 03/16/18 15:42> Allergies Allergy/AdvReac Type Severity Reaction Status Date / Time aspirin Allergy Severe Hives Verified 03/12/18 02:28 *MDRO Multi-Drug Resistant AdvReac Unknown Cleared Uncoded 06/20/17 11:13 Organism 05/2016 Home Medications Medication Instructions Recorded Confirmed Type ferrous sulfate 325 mg FEEDING TUBE TID 03/11/18 03/12/18 History levetiracetam [Keppra] 100 mg FEEDING TUBE BID 03/11/18 03/12/18 History levofloxacin [Levaquin] 500 mg FEEDING TUBE DAILY 03/11/18 03/12/18 History lisinopril 20 mg FEEDING TUBE DAILY 03/11/18 03/12/18 History metoprolol tartrate 50 mg FEEDING TUBE BID 03/11/18 03/12/18 History mirtazapine 7.5 mg FEEDING TUBE DAILY 03/11/18 03/12/18 History phenytoin [Dilantin Infatabs] 125 mg G-TUBE BID 03/11/18 03/11/18 History pravastatin 20 mg FEEDING TUBE BID 03/11/18 03/12/18 History famotidine 20 mg FEEDING TUBE BID 03/12/18 03/12/18 History triamcinolone acetonide 1 applic TOPICAL BID 03/12/18 03/12/18 History warfarin 7.5 mg FEEDING TUBE DIRECTED 03/12/18 03/12/18 History warfarin 10 mg FEEDING TUBE QTUTHSA 03/12/18 03/12/18 History Exam Vital signs: Vital Signs 03/15/18 16:00 03/15/18 20:00 03/15/18 22:00 Temperature 97.8 F 98.2 F Pulse Rate 113 H 112 H 109 H Respiratory Rate 20 18 Blood Pressure 118/59 L 126/66 Pulse Oximetry 96 99 03/15/18 22:10 03/16/18 00:00 03/16/18 04:00 Temperature 98 F 98.1 F Pulse Rate 110 H 112 H 107 H Respiratory Rate 30 H 18 18 Blood Pressure 147/67 H 104/52 L Pulse Oximetry 98 96 95 03/16/18 04:08 03/16/18 08:00 03/16/18 12:00 Temperature Pulse Rate 112 H 82 91 H Respiratory Rate 30 H 15 18 Blood Pressure 124/58 L 149/69 H Pulse Oximetry 100 95 Intake & Output 03/15/18 03/16/18 03/16/18 18:59 06:59 18:59 Intake Total 1100 / 1100 350 / 350 1000 / 1000 Balance 1100 / 1100 350 / 350 1000 / 1000 Weight 87.4 kg Intake: IV 1100 / 1100 350 / 350 1000 / 1000 D5W + KCL 20 mEq Inj 1,000 ML @ 1000 / 1000 1000 / 1000 75 mls/hr IV.CONT .[id number] [facility] Rx#:[id number] Azithromycin Inj 500 MG In NS 250 / 250 Inj 250 ML @ 250 mls/hr IV.SIG Q24H [facility] Rx#:[id number] Maxipime Inj 1,000 MG In NS Inj 100 / 100 100 / 100 100 ML @ 200 mls/hr IV.SIG Q8H [facility] Rx#:[id number] Other: # Voids 1 2 Date of Last Bowel Movement 03/15/18 03/16/18 # Bowel Movements 1 2 - Constitutional no acute distress - Routine HEENT Exam Head: Present: normocephalic - Routine Respiratory Exam Present: accessory muscle use Comments: Fine scattered wheezes present - Routine Abdominal Exam Present: soft, normoactive bowel sounds. Absent: tenderness, guarding, firm - Routine Extremities Exam Absent: edema - Routine Skin Exam Present: dry, warm <Koenig,Isi - Last Filed: 03/16/18 14:13> Vital signs: Vital Signs 03/15/18 16:00 03/15/18 20:00 03/15/18 22:00 Temperature 97.8 F 98.2 F Pulse Rate 113 H 112 H 109 H Respiratory Rate 20 18 Blood Pressure 118/59 L 126/66 Pulse Oximetry 96 99 03/15/18 22:10 03/16/18 00:00 03/16/18 04:00 Temperature 98 F 98.1 F Pulse Rate 110 H 112 H 107 H Respiratory Rate 30 H 18 18 Blood Pressure 147/67 H 104/52 L Pulse Oximetry 98 96 95 03/16/18 04:08 03/16/18 08:00 03/16/18 10:00 Temperature Pulse Rate 112 H 82 111 H Respiratory Rate 30 H 15 Blood Pressure 124/58 L Pulse Oximetry 100 03/16/18 12:00 03/16/18 14:00 Temperature Pulse Rate 91 H 102 H Respiratory Rate 20 Blood Pressure 149/69 H Pulse Oximetry 95 Intake & Output 03/15/18 03/16/18 03/16/18 18:59 06:59 18:59 Intake Total 1100 / 1100 350 / 350 1000 / 1000 Balance 1100 / 1100 350 / 350 1000 / 1000 Weight 87.4 kg Intake: IV 1100 / 1100 350 / 350 1000 / 1000 D5W + KCL 20 mEq Inj 1,000 ML @ 1000 / 1000 1000 / 1000 75 mls/hr IV.CONT .[id number] [facility] Rx#:[id number] Azithromycin Inj 500 MG In NS 250 / 250 Inj 250 ML @ 250 mls/hr IV.SIG Q24H [facility] Rx#:[id number] Maxipime Inj 1,000 MG In NS Inj 100 / 100 100 / 100 100 ML @ 200 mls/hr IV.SIG Q8H [facility] Rx#:[id number] Other: # Voids 1 2 Date of Last Bowel Movement 03/15/18 03/16/18 03/16/18 # Bowel Movements 1 2 <Adams Mejia A - Last Filed: 03/16/18 15:42> Results - Labs CBC & Chem 7: 03/16/18 05:29 03/16/18 05:29 Labs: Laboratory Results - last 24 hr 03/15/18 03/16/18 03/16/18 17:32 05:29 05:29 WBC 7.0 RBC 2.56 L Hgb 7.8 L Hct 24.3 L MCV 94.7 MCH 30.3 MCHC 31.9 L RDW 16.2 Plt Count 44 L MPV 11.8 H Prelim Diff (Auto) Slide review pending Neut % (Auto) 65.1 Lymph % (Auto) 21.4 [place] % (Auto) 9.4 H Eos % (Auto) 3.9 Baso % (Auto) 0.2 Neut # (Auto) 4.6 Lymph # (Auto) 1.5 [place] # (Auto) 0.7 Eos # (Auto) 0.3 Baso # (Auto) 0.0 WBC Differential . Diff Scan Auto diff confirmed Differential Comment . Platelet Estimate Low L Platelet Morphology Enlarged H PT INR Sodium 163 H* Potassium 4.1 Chloride 133 H Carbon Dioxide 21.9 Anion Gap 8 BUN 28 H Creatinine 1.92 H Estimated GFR 31 L POC Glucose 158 H Random Glucose 114 H Calcium 7.8 L Magnesium 2.9 H Random Vancomycin 22.1 03/16/18 03/16/18 03/16/18 10:47 13:08 13:14 WBC RBC Hgb Hct MCV MCH MCHC RDW Plt Count MPV Prelim Diff (Auto) Neut % (Auto) Lymph % (Auto) [place] % (Auto) Eos % (Auto) Baso % (Auto) Neut # (Auto) Lymph # (Auto) [place] # (Auto) Eos # (Auto) Baso # (Auto) WBC Differential Diff Scan Differential Comment Platelet Estimate Platelet Morphology PT 13.5 H INR 1.3 Sodium Potassium Chloride Carbon Dioxide Anion Gap BUN Creatinine Estimated GFR POC Glucose 122 H 119 H Random Glucose Calcium Magnesium Random Vancomycin - Imaging Impressions Chest X-Ray 03/16/18 00:00 CONCLUSION: Right lower lung opacity unchanged. Liver Ultrasound 03/16/18 00:00 CONCLUSION: 1. Limited exam due to patient's inability to cooperate with examination. The common bile duct and portal vein are not visualized. 2. Cirrhotic appearing liver. 3. Cholelithiasis without sonographic evidence for cholecystitis. 4. Apparent interval enlargement of simple appearing pancreatic cyst. Interval change in size may be due to differences in technique (ultrasound versus CT). <KoenigIsi - Last Filed: 03/16/18 14:13> - Labs CBC & Chem 7: 03/16/18 05:29 03/16/18 05:29 Labs: Laboratory Results - last 24 hr 03/15/18 03/16/18 03/16/18 17:32 05:29 05:29 WBC 7.0 RBC 2.56 L Hgb 7.8 L Hct 24.3 L MCV 94.7 MCH 30.3 MCHC 31.9 L RDW 16.2 Plt Count 44 L MPV 11.8 H Prelim Diff (Auto) Slide review pending Neut % (Auto) 65.1 Lymph % (Auto) 21.4 [place] % (Auto) 9.4 H Eos % (Auto) 3.9 Baso % (Auto) 0.2 Neut # (Auto) 4.6 Lymph # (Auto) 1.5 [place] # (Auto) 0.7 Eos # (Auto) 0.3 Baso # (Auto) 0.0 WBC Differential . Diff Scan Auto diff confirmed Differential Comment . Platelet Estimate Low L Platelet Morphology Enlarged H PT INR Sodium 163 H* Potassium 4.1 Chloride 133 H Carbon Dioxide 21.9 Anion Gap 8 BUN 28 H Creatinine 1.92 H Estimated GFR 31 L POC Glucose 158 H Random Glucose 114 H Calcium 7.8 L Magnesium 2.9 H Random Vancomycin 22.1 03/16/18 03/16/18 03/16/18 10:47 13:08 13:14 WBC RBC Hgb Hct MCV MCH MCHC RDW Plt Count MPV Prelim Diff (Auto) Neut % (Auto) Lymph % (Auto) [place] % (Auto) Eos % (Auto) Baso % (Auto) Neut # (Auto) Lymph # (Auto) [place] # (Auto) Eos # (Auto) Baso # (Auto) WBC Differential Diff Scan Differential Comment Platelet Estimate Platelet Morphology PT 13.5 H INR 1.3 Sodium Potassium Chloride Carbon Dioxide Anion Gap BUN Creatinine Estimated GFR POC Glucose 122 H 119 H Random Glucose Calcium Magnesium Random Vancomycin - Imaging Impressions Chest X-Ray 03/16/18 00:00 CONCLUSION: Right lower lung opacity unchanged. Liver Ultrasound 03/16/18 00:00 CONCLUSION: 1. Limited exam due to patient's inability to cooperate with examination. The common bile duct and portal vein are not visualized. 2. Cirrhotic appearing liver. 3. Cholelithiasis without sonographic evidence for cholecystitis. 4. Apparent interval enlargement of simple appearing pancreatic cyst. Interval change in size may be due to differences in technique (ultrasound versus CT). <Adams Mejia - Last Filed: 03/16/18 15:42> Assessment and Plan (1) PEG (percutaneous endoscopic gastrostomy) adjustment/replacement/removal Status: Acute Code(s): Z43.1 - Encounter for attention to gastrostomy - Plan This patient is a 72-year-old female who presented to [facility] on 03/12/2018 from a intermediate facility. Patient has a medical history significant for CVA with right-sided hemiparesis, seizure disorder, hypertension ,'s asthma, schizoaffective disorder, dementia and heart failure. Patient had previously been on Coumadin for CVA but medication has been held since admission with last confirmed dose being on 03/12/2018. Our service has been consulted to evaluate patient replacement of PEG tube. Patient pulled out PEG tube this a.m. PEG tube noted to be 18 Armenian with 20 mL balloon. Site intact without drainage or bleeding noted. PEG tube placement Patient pulled out PEG tube this a.m. Nepro 1.8 at 50 mL's per hour as per registered dietitians recommendations. 03/16/2018 INR 1.3 Plan -N.p.o. -Obtain consent for PEG placement -Continue IV antibiotics Cefepime every 8 hours -Supportive care -Further recommendations to follow This patient has been seen by myself and Dr. Mejia and this note is written on his behalf - Attending Attestation Dr. Mejia <Isi Koenig - Last Filed: 03/16/18 14:13> (1) PEG (percutaneous endoscopic gastrostomy) adjustment/replacement/removal Status: Acute Code(s): Z43.1 - Encounter for attention to gastrostomy - Attending Attestation Plan as above, will obtain for PEG placement in AM. Thank you for the consult. <Adams Mejia - Last Filed: 03/16/18 15:42>
[2018-03-16] MEDS: Insulin NovoLOG Aspart Correctional Sugar Inj SQ SCH ×3 (14:29→22:16)
--- NOTE | 2018-03-16 17:06 | P.CONPAL ---
Consult Service: Palliative Care Requesting Physician: Jessica Byrnes Reason for Consult: a. To assist with evaluation and management of symptoms including: Pain. b. To assist medical decision maker(s) with: better understanding of current medical conditions; weighing benefits/burdens of medical treatment options; making medical treatment decisions. Primary Care Provider: Sean Stein MD History of Present Illness History of Present Illness: Ms. Childress is a 72-year-old female with medical history significant for CVA secondary to intracranial aneurysm, bedbound, hypertension, atrial fibrillation on Coumadin, seizures, COPD, GERD, schizophrenia, dementia and hyperlipidemia. Patient is well-known to palliative care services from prior hospitalizations. Patient presented to ED via EMS on 03/11/18 from her long-term facility with reports of shortness of breath and dyspnea. He did workup to include chest x- ray revealing a new area of parenchymal consolidation in the medial right lower lobe. Head CT negative for acute process. Laboratory workup revealed WBC of 12.0, sodium of 162, BUN/creatinine 34/2.37. UA negative for nitrites or leukocytes. Patient was admitted and seen by critical care. Hematology consulted on 03/14 for evaluation of thrombocytopenia. Patient presented with a platelet count of 50, decreased to 33 prompting consultation. Liver ultrasound secure on 03/16, limited exam due to patient's inability to cooperate with examination. Cirrhotic appearing liver and no evidence of cholecystitis. Earlier this morning patient pulled out her G-tube while receiving nursing care. Palliative care has been consulted for further clarifications of goals of care in the setting of bedbound state status post CVA now with sepsis. Patient well-known to palliative care services. Has been seen in multiple hospitalizations throughout 2017 in 2018. Dislodged/pulled out feeding tube on May 2017 in November 2017, feeding tube was replaced in both occasions. Feeding tube was also replaced twice in 2017. patient is a long-term resident of [facility] in rehab since 2009. History of CVA secondary to intracranial aneurysm, schizophrenia and dementia. She was sitting medical floor, resting in bed in moderate distress secondary to restlessness. Patient with slurred speech, alert to self. Able to respond to simple questions, was able to tell me her first name. Answering "no" when asked her about her pain or shortness of breath. Gastroenterology has been consulted for replacement of PEG tube, plan for tomorrow. Laboratory workup today reveals an platelet count of 41, sodium remains elevated at 163, BUN/creatinine 28/1.92. No family at bedside during my visit. Telephone call to patient's daughter Cat Childress, left message on voicemail. Telephone call to son Herrera Childress, left message on voicemail. Case discussed with Dr. Byrnes and bedside RN. Function/Cognitive Trajectory: Patient with history of large MCA stroke in 2009 which left her with right- sided hemiparesis. Has been a resident of [facility] and rehab since December 2009. Patient has a fascia in most of the time she has difficulty with communication. Significant history of schizophrenia and dementia. Patient is PEG tube dependent, patient bedbound and totally dependent for all ADLs. Review of Systems unobtainable due to mental condition, other (Limited ROS secondary to patient's clinical condition, CVA.) [facility] - History History Provided By: Medical Record, Funding Analyst / EMT - Medical History Medical History: Medical History (Last Reviewed 03/15/18 @ 06:59 by Mello Frey) History of MRSA infection Onset Date: ~03/12/18 Agnosia Angina pectoris, unspecified Anxiety CKD (chronic kidney disease) CVA (cerebral vascular accident) Dysphagia Failure to thrive GERD (gastroesophageal reflux disease) Gastrointestinal tube present HTN (hypertension) Heart failure Hypokalemia IBS (irritable bowel syndrome) Schizoaffective disorder Vascular dementia with behavior disturbance - Surgical History Surgical History: Surgical History (Last Updated 03/16/18 @ 16:43 by Jessie Bach APRN) H/O mastectomy S/P percutaneous endoscopic gastrostomy (PEG) tube placement - Family History Family History: Family History (Last Updated 03/16/18 @ 16:43 by Jessie Bach APRN) Other Hypertension - Social History I have reviewed the patient's Social History: Yes - Tobacco History Second Hand Smoke Exposure: No Tobacco Use In Past 30 Days: No Smoking Status: Unknown if ever smoked - Alcohol History How Often Do You Have a Drink Containing Alcohol: Never - Substance Use History Substance History: Unable to Obtain - Travel History Recent Travel in the [place] Within the Last 8 Weeks: No Recent Travel Out of the Country Within the Last 8 Weeks: No - Immunization History Tetanus Immunization: Unable to Assess Hx Influenza Vaccine This Season: Unable to Assess Medications and Allergies Active Medications: Active Medications Acetaminophen (Tylenol) 650 mg PO Q4H PRN PRN Reason: Temp > 100.4/pain Al Hydroxide/Mg Hydroxide (Milk Of Magnesia Liq) 30 ml PO Q12H PRN PRN Reason: Mild Constipation Albuterol (Duoneb Neb (Sharmila)) 1 ampul NEB Q6HR NEB SHARMILA Last Admin: 03/16/18 15:56 Dose: 1 ampul Albuterol (Duoneb Neb (Prn)) 1 ampul NEB Q2HR NEB PRN PRN Reason: SHORTNESS OF BREATH/WHEEZING Last Admin: 03/15/18 00:36 Dose: 1 ampul Bisacodyl (Dulcolax Supp) 10 mg RECTAL DAILY PRN PRN Reason: SEVERE CONSITIPATION Chlorhexidine Gluconate (Chlorhexidine 2% Cloth) 3 pack TOPICAL DAILY@0400 SHARMILA Stop: 03/18/18 03:59 Last Admin: 03/16/18 05:44 Dose: Not Given Chlorhexidine Gluconate (Chlorhexidine 2% Cloth) 3 pack TOPICAL DAILY@0400 PRN PRN Reason: Extra cloth needed Stop: 03/18/18 03:59 Dextrose (D50w Vial) 50 ml IV.PUSH UNSCH PRN PRN Reason: PER HYPOGLYCEMIA PROTOCOL Ferrous Sulfate (Ferosul) 325 mg PO TID [facility] Last Admin: 03/16/18 14:30 Dose: Not Given Glucagon (Glucagon Inj) 1 mg OTHER PRN PRN PRN Reason: for Hypoglycemia Protocol Potassium Chloride/Dextrose (D5w + Kcl 20 Meq Inj) 1,000 mls @ 75 mls/hr IV.CONT .[id number] [facility] Last Admin: 03/16/18 10:06 Dose: 75 mls/hr Cefepime HCl 1,000 mg/ Sodium (Chloride) 100 mls @ 200 mls/hr IV.SIG Q8H [facility] Last Admin: 03/16/18 14:57 Dose: 200 mls/hr Azithromycin 500 mg/ Sodium (Chloride) 250 mls @ 250 mls/hr IV.SIG Q24H [facility] Last Infusion: 03/16/18 03:14 Dose: Infused Insulin Aspart (Novolog Insulin Correctional Sugar Inj) 0 unit SQ ACHS [facility]; Protocol Last Admin: 03/16/18 14:29 Dose: Not Given Lactulose (Lactulose Liq) 30 ml PO DAILY PRN PRN Reason: SEVERE CONSITIPATION Lansoprazole (Prevacid Solutab) 15 mg NG/OG DAILY [facility] Last Admin: 03/16/18 10:06 Dose: 15 mg Levetiracetam (Keppra Liq) 100 mg PO BID [facility] Last Admin: 03/16/18 10:07 Dose: 100 mg Mirtazapine (Remeron) 7.5 mg PO HS [facility] Miscellaneous (Pill Splitter) 1 each OTHER UNSCH PRN PRN Reason: SEE LABEL Ondansetron HCl (Zofran Inj) 4 mg IV.PUSH Q6H PRN PRN Reason: NAUSEA OR VOMITING Pharmacy Profile Note (Vancomycin Consult Pharmacy) 1 each OTHER UNSCH PRN PRN Reason: PHARMACY CONSULT Pharmacy Profile Note (Coumadin Consult Pharmacy) 1 each OTHER UNSCH PRN PRN Reason: PHARMACY DOCUMENTATION Phenytoin (Dilantin Infatabs Chewable) 125 mg G-TUBE BID [facility] Last Admin: 03/16/18 10:06 Dose: 125 mg Potassium Bicarb/Potassium Chloride (K-Lyte Cl Eff) 25 meq PO BID [facility] Last Admin: 03/16/18 10:07 Dose: 25 meq Pravastatin Sodium (Pravachol) 20 mg PO BID [facility] Last Admin: 03/16/18 10:06 Dose: 20 mg Senna/Docusate Sodium (Whitney-Colace) 1 tab PO BID [facility] Last Admin: 03/16/18 10:07 Dose: 1 tab Sennosides (Senokot) 17.2 mg PO Q12H PRN PRN Reason: Moderate Constipation Sodium Chloride (Ns Flush) 2 ml IV.FLUSH BID [facility] Last Admin: 03/16/18 10:08 Dose: 2 ml Sodium Chloride (Ns Flush) 2 ml IV.FLUSH PRN PRN PRN Reason: FLUSH AFTER USING IV ACCESS Sterile Water (Free Water) 500 ml G-TUBE Q6H@,, [facility] Triamcinolone Acetonide (Aristocort 0.1% Cream) 1 applicatio TOPICAL BID [facility] Last Admin: 03/16/18 10:07 Dose: 1 applicatio Warfarin Sodium (Coumadin) 7.5 mg PO MoWeFr@1600 [facility] Warfarin Sodium (Coumadin) 10 mg PO TuThSa@1600 SHARMILA Allergies Allergy/AdvReac Type Severity Reaction Status Date / Time aspirin Allergy Severe Hives Verified 03/12/18 02:28 *MDRO Multi-Drug Resistant AdvReac Unknown Cleared Uncoded 06/20/17 11:13 Organism 05/2016 Home Medications Medication Instructions Recorded Confirmed Type ferrous sulfate 325 mg FEEDING TUBE TID 03/11/18 03/12/18 History levetiracetam [Keppra] 100 mg FEEDING TUBE BID 03/11/18 03/12/18 History levofloxacin [Levaquin] 500 mg FEEDING TUBE DAILY 03/11/18 03/12/18 History lisinopril 20 mg FEEDING TUBE DAILY 03/11/18 03/12/18 History metoprolol tartrate 50 mg FEEDING TUBE BID 03/11/18 03/12/18 History mirtazapine 7.5 mg FEEDING TUBE DAILY 03/11/18 03/12/18 History phenytoin [Dilantin Infatabs] 125 mg G-TUBE BID 03/11/18 03/11/18 History pravastatin 20 mg FEEDING TUBE BID 03/11/18 03/12/18 History famotidine 20 mg FEEDING TUBE BID 03/12/18 03/12/18 History triamcinolone acetonide 1 applic TOPICAL BID 03/12/18 03/12/18 History warfarin 7.5 mg FEEDING TUBE DIRECTED 03/12/18 03/12/18 History warfarin 10 mg FEEDING TUBE QTUTHSA 03/12/18 03/12/18 History Advance Directives Living Will: No Healthcare Surrogate: No Power of Machine Setup Operator: Yes Physical Exam Vital Signs: Vital Signs - 24 hr 03/15/18 20:00 03/15/18 22:00 03/15/18 22:10 Temperature 98.2 F Pulse Rate 112 H 109 H 110 H Respiratory Rate 18 30 H Blood Pressure 126/66 Pulse Oximetry 99 98 03/16/18 00:00 03/16/18 04:00 03/16/18 04:08 Temperature 98 F 98.1 F Pulse Rate 112 H 107 H 112 H Respiratory Rate 18 18 30 H Blood Pressure 147/67 H 104/52 L Pulse Oximetry 96 95 03/16/18 08:00 03/16/18 10:00 03/16/18 12:00 Temperature Pulse Rate 82 111 H 91 H Respiratory Rate 15 20 Blood Pressure 124/58 L 149/69 H Pulse Oximetry 100 95 03/16/18 14:00 03/16/18 15:57 03/16/18 15:58 Temperature Pulse Rate 102 H 102 H Respiratory Rate 20 Blood Pressure Pulse Oximetry 95 I&O: Intake & Output 03/14/18 03/15/18 03/16/18 03/17/18 06:59 06:59 06:59 06:59 Intake Total 1840 / 1840 2120 / 2120 1450 / 1450 1000 / 1000 Output Total 1700 / 1700 Balance 140 / 140 0 / 2120 1450 / 1450 1000 / 1000 Weight 87.4 kg 87.4 kg 87.4 kg Physical Exam: CONSTITUTIONAL/GENERAL: This is an elderly female resting in bed in moderate distress secondary to anxiety/restlessness. TUBES/LINES/DRAINS: PIV. SKIN: No jaundice, rashes, or lesions. No wounds seen anteriorly. Skin temperature appropriate. Not diaphoretic. HEAD: Atraumatic. Normocephalic. EYES: Pupils equal and round and reactive. Extraocular motions intact. No scleral icterus. No injection or drainage. Fundi not examined. ENT: Hearing grossly normal. Nose without bleeding or purulent drainage. Moist oral mucosa. NECK: Trachea midline. Supple, nontender. CARDIOVASCULAR: Regular rate and rhythm without murmurs, gallops, or rubs. Peripheral pulses symmetric. RESPIRATORY/CHEST: Symmetric, unlabored respirations. Clear to auscultation. Breath sounds equal bilaterally. No wheezes, rales, or rhonchi. GASTROINTESTINAL: Abdomen soft, non-tender, nondistended. Bowel sounds present. Dressing to mid abdomen, site of PEG tube incision. GENITOURINARY: Without palpable bladder distension. MUSCULOSKELETAL: Extremities without clubbing, cyanosis, or edema. No mottling or clubbing. Foot drops bilaterally. Contracted right hand. NEUROLOGICAL: Awake and alert x self. Aphasic with slurred speech, difficult to communicate. Right-sided weakness. PSYCHIATRIC: Anxious/restless. Diagnostic Tests Laboratory: Laboratory Results - last 72 hr 03/13/18 03/13/18 03/13/18 17:11 17:45 19:58 WBC RBC Hgb Hct MCV MCH MCHC RDW Plt Count MPV Prelim Diff (Auto) Neut % (Auto) Lymph % (Auto) Coffee % (Auto) Eos % (Auto) Baso % (Auto) Neut # (Auto) Lymph # (Auto) Coffee # (Auto) Eos # (Auto) Baso # (Auto) WBC Differential Diff Scan Differential Comment Platelet Estimate Platelet Morphology RBC Morphology Smear Path Review Haptoglobin PT INR Fibrinogen Sodium 161 H* Potassium Chloride Carbon Dioxide Anion Gap BUN Creatinine Estimated GFR POC Glucose 148 H 146 H Random Glucose Calcium Magnesium Lactate Dehydrogenase Vitamin B12 Folate Random Vancomycin 03/14/18 03/14/18 03/14/18 03:06 04:08 04:08 WBC RBC Hgb Hct MCV MCH MCHC RDW Plt Count MPV Prelim Diff (Auto) Neut % (Auto) Lymph % (Auto) Coffee % (Auto) Eos % (Auto) Baso % (Auto) Neut # (Auto) Lymph # (Auto) Coffee # (Auto) Eos # (Auto) Baso # (Auto) WBC Differential Diff Scan Differential Comment Platelet Estimate Platelet Morphology RBC Morphology Smear Path Review Haptoglobin PT 17.8 H INR 1.8 Fibrinogen Sodium 163 H* Potassium 3.2 L Chloride 128 H Carbon Dioxide 25.0 Anion Gap 10 BUN 44 H Creatinine 2.40 H Estimated GFR 24 L POC Glucose 129 H Random Glucose 124 H D Calcium 8.0 L D Magnesium 3.3 H Lactate Dehydrogenase Vitamin B12 Folate Random Vancomycin 16.1 03/14/18 03/14/18 03/14/18 04:08 08:51 17:01 WBC RBC Hgb Hct MCV MCH MCHC RDW Plt Count MPV Prelim Diff (Auto) Neut % (Auto) Lymph % (Auto) Coffee % (Auto) Eos % (Auto) Baso % (Auto) Neut # (Auto) Lymph # (Auto) Coffee # (Auto) Eos # (Auto) Baso # (Auto) WBC Differential Diff Scan Differential Comment Platelet Estimate Platelet Morphology RBC Morphology Smear Path Review Haptoglobin 133 PT INR Fibrinogen Sodium Potassium Chloride Carbon Dioxide Anion Gap BUN Creatinine Estimated GFR POC Glucose 155 H 129 H Random Glucose Calcium Magnesium Lactate Dehydrogenase 470 H Vitamin B12 1577 H Folate Greater than 20.0 H Random Vancomycin 03/14/18 03/14/18 03/14/18 18:11 18:11 23:35 WBC 6.8 RBC 3.01 L Hgb 8.9 L Hct 27.6 L MCV 91.8 D MCH 29.7 MCHC 32.3 RDW 15.6 Plt Count 45 L D MPV 12.9 H Prelim Diff (Auto) Slide review pending Neut % (Auto) 69.2 Lymph % (Auto) 17.2 Coffee % (Auto) 9.2 H Eos % (Auto) 4.2 H Baso % (Auto) 0.2 Neut # (Auto) 4.7 Lymph # (Auto) 1.2 Coffee # (Auto) 0.6 Eos # (Auto) 0.3 Baso # (Auto) 0.0 WBC Differential . Diff Scan Auto diff confirmed Differential Comment . Platelet Estimate Low L Platelet Morphology Enlarged H RBC Morphology Normal Smear Path Review Haptoglobin PT INR Fibrinogen 480 H Sodium Potassium Chloride Carbon Dioxide Anion Gap BUN Creatinine Estimated GFR POC Glucose 138 H Random Glucose Calcium Magnesium Lactate Dehydrogenase Vitamin B12 Folate Random Vancomycin 03/15/18 03/15/18 03/15/18 07:28 09:22 09:22 WBC RBC Hgb Hct MCV MCH MCHC RDW Plt Count MPV Prelim Diff (Auto) Neut % (Auto) Lymph % (Auto) Coffee % (Auto) Eos % (Auto) Baso % (Auto) Neut # (Auto) Lymph # (Auto) Coffee # (Auto) Eos # (Auto) Baso # (Auto) WBC Differential Diff Scan Differential Comment Platelet Estimate Platelet Morphology RBC Morphology Smear Path Review Haptoglobin PT 15.3 H INR 1.5 Fibrinogen Sodium 162 H* Potassium 4.4 D Chloride 131 H Carbon Dioxide 22.0 Anion Gap 9 BUN 34 H Creatinine 2.37 H Estimated GFR 25 L POC Glucose 166 H Random Glucose 153 H Calcium 8.0 L Magnesium 3.1 H Lactate Dehydrogenase Vitamin B12 Folate Random Vancomycin 03/15/18 03/15/18 03/15/18 09:22 12:43 17:32 WBC 6.3 RBC 2.80 L Hgb 8.4 L Hct 26.2 L MCV 93.6 MCH 29.9 MCHC 32.0 RDW 16.0 Plt Count 41 L MPV 12.4 H Prelim Diff (Auto) Slide review pending Neut % (Auto) 66.9 Lymph % (Auto) 21.1 Coffee % (Auto) 8.1 H Eos % (Auto) 3.7 Baso % (Auto) 0.2 Neut # (Auto) 4.2 Lymph # (Auto) 1.3 Coffee # (Auto) 0.5 Eos # (Auto) 0.2 Baso # (Auto) 0.0 WBC Differential . Diff Scan Auto diff confirmed Differential Comment . Platelet Estimate Platelet Morphology RBC Morphology Smear Path Review Haptoglobin PT INR Fibrinogen Sodium Potassium Chloride Carbon Dioxide Anion Gap BUN Creatinine Estimated GFR POC Glucose 175 H 158 H Random Glucose Calcium Magnesium Lactate Dehydrogenase Vitamin B12 Folate Random Vancomycin 03/16/18 03/16/18 03/16/18 05:29 05:29 10:47 WBC 7.0 RBC 2.56 L Hgb 7.8 L Hct 24.3 L MCV 94.7 MCH 30.3 MCHC 31.9 L RDW 16.2 Plt Count 44 L MPV 11.8 H Prelim Diff (Auto) Slide review pending Neut % (Auto) 65.1 Lymph % (Auto) 21.4 Coffee % (Auto) 9.4 H Eos % (Auto) 3.9 Baso % (Auto) 0.2 Neut # (Auto) 4.6 Lymph # (Auto) 1.5 Coffee # (Auto) 0.7 Eos # (Auto) 0.3 Baso # (Auto) 0.0 WBC Differential . Diff Scan Auto diff confirmed Differential Comment . Platelet Estimate Low L Platelet Morphology Enlarged H RBC Morphology Smear Path Review Haptoglobin PT INR Fibrinogen Sodium 163 H* Potassium 4.1 Chloride 133 H Carbon Dioxide 21.9 Anion Gap 8 BUN 28 H Creatinine 1.92 H Estimated GFR 31 L POC Glucose 122 H Random Glucose 114 H Calcium 7.8 L Magnesium 2.9 H Lactate Dehydrogenase Vitamin B12 Folate Random Vancomycin 22.1 03/16/18 03/16/18 13:08 13:14 WBC RBC Hgb Hct MCV MCH MCHC RDW Plt Count MPV Prelim Diff (Auto) Neut % (Auto) Lymph % (Auto) Coffee % (Auto) Eos % (Auto) Baso % (Auto) Neut # (Auto) Lymph # (Auto) Coffee # (Auto) Eos # (Auto) Baso # (Auto) WBC Differential Diff Scan Differential Comment Platelet Estimate Platelet Morphology RBC Morphology Smear Path Review Haptoglobin PT 13.5 H INR 1.3 Fibrinogen Sodium Potassium Chloride Carbon Dioxide Anion Gap BUN Creatinine Estimated GFR POC Glucose 119 H Random Glucose Calcium Magnesium Lactate Dehydrogenase Vitamin B12 Folate Random Vancomycin Result Diagrams: 03/16/18 05:29 03/16/18 05:29 Microbiology: Microbiology 03/11/18 23:26 Aerobic Blood Culture - Final Blood - Peripheral No growth in 5 days Anaerobic Blood Culture - Final No growth in 5 days 03/11/18 23:26 Aerobic Blood Culture - Final Blood - Peripheral No growth in 5 days Anaerobic Blood Culture - Final No growth in 5 days Assessment and Plan - Disease Oriented Problem List (1) PEG (percutaneous endoscopic gastrostomy) adjustment/replacement/removal (2) Healthcare-associated pneumonia (3) Severe sepsis (4) Acute hypernatremia (5) Dehydration (6) Acute renal failure (7) Physical deconditioning (8) Bedbound - Symptom Scale (1) Pain after cerebrovascular accident (CVA) 0-10 Scale: Unable to quantify Pertinent Non-Medical Issues: Psychosocial: Patient is a long-term resident of [facility] and rehab since 2009. . She has 3 adult children. Spiritual: Gnosticist vik. Legal: Power of securities attorney completed. Ethical issues impacting care: No ethical issues identified. Important Contacts: Daughter Cat Childress , , Son Todd Childress Son Herrera Childress [phone] Prognosis: Ms. Childress is a 72-year-old female with medical history significant for CVA secondary to intracranial aneurysm, bedbound, hypertension, atrial fibrillation on Coumadin, seizures, COPD, GERD, schizophrenia, dementia and hyperlipidemia. Patient is well-known to palliative care services from prior hospitalizations. She presented to ED on 03/11/18, she was found to be severely hypernatremic, septic and on acute kidney failure. Patient is totally bedbound and dependent on others for care, resident of [facility] multiple prior hospitalizations in 2017 and 2018. She remains at a very high risk for further complications, continued decline and given multiple comorbidities, profound physical deconditioning, acute events and advanced age. Code Status: Full Code Plan: * CODE STATUS: Full code * HEALTHCARE DECISION-MAKING: Patient unable to participating medical decision making secondary to clinical condition. History of stroke with aphasia, dementia and a schizoaffective disorder. Not likely to regain medical decision- making capacity. Power of securities attorney completed by does not include healthcare decision making. Patient is and has 3 adult children. As per [place] statute, healthcare proxy decision making falls to the majority of patient's children for which she has 3: Cat, Herrera and Magdaleno. * GOALS OF CARE: Palliative care attempted unsuccessfully to speak with patient' s children. Goals of treatment aggressive as per family conversation with attending Dr. Byrnes. Patient known to palliative care services during multiple prior hospitalizations, goals of treatment have remained aggressive. Hospice has previously been discussed with patient's family, family declined. * SYMPTOMS: = Dysphagia: Secondary to stroke. PEG tube feeding, pulled out PEG tube this morning. GI following, plan to replace tomorrow. =Debility: Progressive. Patient is a long-term resident secondary to CVA. She is totally bedbound and dependent for all others for care. Right-sided hemiparesis and aphasia. Right upper extremity is contracted. Likely to continue to worsen given clinical condition. = Restlessness/anxiety. Exacerbated by clinical condition in the setting of sepsis, hyponatremia. * Case discussed with Dr. Byrnes. * Palliative care will continue to follow-up for further clarifications of goals of care as patient's clinical course continues to evolve. Time Spent Total Floor Time (mins): 44 (Total time to include review and stabilization of available medical records to include multiple prior hospitalizations, physical exam, case discussion with attending and bedside RN.) >50% Time in Counseling or Coordination of Care: Yes (Total visit time = 44 minutes; > 50% spent counseling/coordinating care44) Appreciation Thank you for the opportunity to participate in the care of Florence Childress. Attestation Attestation: To help prompt me to consider important information that might be impacting today's encounter and assessment, information from prior notes written by myself or my colleagues may have been "brought forward" into today's note. My signature on this note, however, is an attestation that I personally performed the exam, history, and/or decision-making noted today, and, unless otherwise indicated, the interactions with patient, family, and staff as well as the review of records all occurred today. I also attest that the listed assessment and stated plan reflect my best clinical judgment today based on the combination of historical information, prior notes, and today's exam/ interactions. When time spent is documented, it refers only to time spent today by the signer, or if indicated, combined time spent today by collaborating physician/nurse practitioner.
--- NOTE | 2018-03-16 22:19 | XR ---
EXAM DATE: 03/16/2018 9:59 PM EST AGE/SEX: 72 years / Female INDICATIONS: Naso gastric tube placement. CLINICAL DATA: This is the patient's initial encounter. Patient reports that signs and symptoms have been present for 1 day and indicates a pain score of Nonresponsive. MEDICAL/SURGICAL HISTORY: Non-responsive. Non-responsive. COMPARISON: [facility] [place] [facility] [place], 09/02/2017. . FINDINGS: Examination of the abdomen demonstrates a normal bowel gas pattern. There is an NG tube in place wit h the tip in the upper stomach. No free air is identified. No organomegaly is evident. Osseous stru ctures are intact. Vascular calcifications are present. CONCLUSION: NG tube tip in the upper stomach. Electronically signed by: Kye Montiel MD 03/16/2018 10:18 PM EST
[2018-03-16] MEDS: Mirtazapine 15 MG Tablet PO SCH (22:53)
[2018-03-17] MEDS: KCL 20 mEq/Dextrose 5% Inj 1,000 ML IV.CONT SCH ×2 (00:16→15:18)
[2018-03-17] MEDS: Azithromycin Inj 500 MG in Sodium Chlor 0.9% Inj 250 ML IV.SIG SCH (00:36)
[2018-03-17] MEDS: Chlorhexidine Gluconate 2% 1 Pack (2 Cloths) TOPICAL SCH (03:09)
[2018-03-17] MEDS ORDERED: Sodium Chlor 0.9% Inj 500 ML IV.CONT ONE (05:45)
[2018-03-17] MEDS ORDERED: Chlorhexidine Gluconate 2% 1 Pack (2 Cloths) TOPICAL ONE (05:45)
[2018-03-17 06:49] LABS: Hematocrit 24.5 % (35.0-46.0); Hemoglobin 7.8 gm/dL (11.6-15.3); Mean Corpuscular Volume 93.8 fL (80.0-100.0); Mean Platelet Volume 11.6 fL (7.0-11.0); Platelet Count 54 th/mm3 (150-450); Red Blood Count 2.61 mil/mm3 (4.00-5.30); Red Cell Distribution Width 15.7 % (11.6-17.2); White Blood Count 5.3 th/mm3 (4.0-11.0)
[2018-03-17 06:50] LABS: INR 1.3 Ratio; Prothrombin Time 13.1 sec (9.8-11.6)
[2018-03-17 07:57] LABS: Calcium 8.2 mg/dL (8.5-10.1); Carbon Dioxide 21.8 meq/L (21.0-32.0); Magnesium 2.7 mg/dL (1.5-2.5)
[2018-03-17 08:35] LABS: Eosinophils 2 % (0-4); Lymphocytes 20 % (9-44); Metamyelocytes 1 % (0-1); Monocytes 7 % (0-8); Ovalocytes 1+; Tallied Nucleated RBC 1 (0-0); Toxic Granulation 2+
[2018-03-17] MEDS: Insulin NovoLOG Aspart Correctional Sugar Inj SQ SCH ×4 (09:49→20:41)
[2018-03-17] MEDS: Potassium Chloride 25 MEQ Effervescent Tablet PO SCH ×3 (10:38→21:48)
[2018-03-17] MEDS: Phenytoin 50 MG Chewable Tablet G-TUBE SCH ×3 (10:38→21:48)
[2018-03-17] MEDS: Senna/Docusate Sodium 8.6/50 MG Tablet PO SCH ×3 (10:39→20:42)
[2018-03-17] MEDS: Lansoprazole ODT 15 MG Tablet NG/OG SCH ×2 (10:39→10:53)
[2018-03-17] MEDS: Ferrous Sulfate 325 MG Tablet PO SCH ×4 (10:39→17:51)
--- NOTE | 2018-03-17 13:34 | P.PNONC ---
Subjective Interval history: Resting comfortably in bed. PEG tube placement planned for today. Platelet count uptrending. Objective Vital Signs/Intake & Output: Vital Signs 03/16/18 14:00 03/16/18 15:57 03/16/18 15:58 Temperature Pulse Rate 102 H 102 H Respiratory Rate 20 Blood Pressure Pulse Oximetry 95 03/16/18 16:00 03/16/18 18:00 03/16/18 20:00 Temperature 99 F Pulse Rate 84 109 H 110 H Respiratory Rate 18 18 Blood Pressure 120/69 151/65 H Pulse Oximetry 95 96 03/16/18 20:58 03/17/18 00:00 03/17/18 04:00 Temperature 98.5 F 97.7 F Pulse Rate 109 H 110 H 115 H Respiratory Rate 18 18 20 Blood Pressure 142/63 H 120/81 Pulse Oximetry 94 L 94 L 03/17/18 04:31 03/17/18 08:00 03/17/18 12:00 Temperature 98.5 F 98.1 F Pulse Rate 103 H 106 H 108 H Respiratory Rate 19 20 20 Blood Pressure 145/66 H 150/65 H Pulse Oximetry 95 100 95 Intake & Output 03/16/18 03/17/18 03/17/18 18:59 06:59 18:59 Intake Total 1100 / 1100 1450 / 1450 Output Total 800 / 800 4 / 4 Balance 300 / 300 1446 / 1446 Weight 84.7 kg Intake: IV 1100 / 1100 1450 / 1450 D5W + KCL 20 mEq Inj 1,000 ML @ 1000 / 1000 1000 / 1000 75 mls/hr IV.CONT .[id number] SHARMILA Rx#:[id number] Azithromycin Inj 500 MG In NS 250 / 250 Inj 250 ML @ 250 mls/hr IV.SIG Q24H SHARMILA Rx#:[id number] Maxipime Inj 1,000 MG In NS Inj 100 / 100 200 / 200 100 ML @ 200 mls/hr IV.SIG Q8H SHARMILA Rx#:[id number] Output: Urine 800 / 800 Urine/Stool Mix 4 / 4 Other: # Incontinent Voids 4 Date of Last Bowel Movement 03/16/18 03/17/18 # Incontinent Bowel Movements 2 Result Diagrams: 03/17/18 05:54 03/17/18 05:54 Laboratory Results: Laboratory Results - last 24 hr 03/16/18 03/16/18 03/16/18 13:14 17:43 21:54 WBC RBC Hgb Hct MCV MCH MCHC RDW Plt Count MPV Prelim Diff (Auto) WBC Differential Seg Neuts % (Manual) Band Neuts % (Manual) Lymphocytes % (Manual) Monocytes % (Manual) Eosinophils % (Manual) Metamyelocytes % (Man) Abs Neuts (Manual) Nucleated RBCs/100 WBC Differential Comment Toxic Granulation Platelet Estimate Platelet Morphology Ovalocytes PT 13.5 H INR 1.3 Sodium Potassium Chloride Carbon Dioxide Anion Gap BUN Creatinine Estimated GFR POC Glucose 130 H 111 H Random Glucose Calcium Magnesium 03/17/18 03/17/18 03/17/18 03:08 05:54 05:54 WBC 5.3 RBC 2.61 L Hgb 7.8 L Hct 24.5 L MCV 93.8 MCH 30.0 MCHC 32.0 RDW 15.7 Plt Count 54 L MPV 11.6 H Prelim Diff (Auto) Manual diff required WBC Differential Manual diff final Seg Neuts % (Manual) 65 Band Neuts % (Manual) 5 Lymphocytes % (Manual) 20 Monocytes % (Manual) 7 Eosinophils % (Manual) 2 Metamyelocytes % (Man) 1 Abs Neuts (Manual) 3.8 Nucleated RBCs/100 WBC 1 H Differential Comment . Toxic Granulation 2+ H Platelet Estimate Low L Platelet Morphology Enlarged H Ovalocytes 1+ H PT 13.1 H INR 1.3 Sodium Potassium Chloride Carbon Dioxide Anion Gap BUN Creatinine Estimated GFR POC Glucose 120 H Random Glucose Calcium Magnesium 03/17/18 03/17/18 03/17/18 05:54 08:33 12:14 WBC RBC Hgb Hct MCV MCH MCHC RDW Plt Count MPV Prelim Diff (Auto) WBC Differential Seg Neuts % (Manual) Band Neuts % (Manual) Lymphocytes % (Manual) Monocytes % (Manual) Eosinophils % (Manual) Metamyelocytes % (Man) Abs Neuts (Manual) Nucleated RBCs/100 WBC Differential Comment Toxic Granulation Platelet Estimate Platelet Morphology Ovalocytes PT INR Sodium 160 H* Potassium 4.0 Chloride 130 H Carbon Dioxide 21.8 Anion Gap 8 BUN 23 H Creatinine 1.59 H Estimated GFR 39 L POC Glucose 118 H 130 H Random Glucose 107 H Calcium 8.2 L Magnesium 2.7 H Culture Results: Microbiology 03/16/18 18:00 Stool Occult Blood (ZIGGY) - Final Stool Hemoccult negative 03/11/18 23:26 Aerobic Blood Culture - Final Blood - Peripheral No growth in 5 days Anaerobic Blood Culture - Final No growth in 5 days 03/11/18 23:26 Aerobic Blood Culture - Final Blood - Peripheral No growth in 5 days Anaerobic Blood Culture - Final No growth in 5 days Imaging Studies: Impressions Abdomen X-Ray 03/16/18 00:00 CONCLUSION: NG tube tip in the upper stomach. Medications: Active Medications Generic Name Dose Route Start Last Admin Trade Name Freq PRN Reason Stop Dose Admin Albuterol 1 ampul 03/12/18 04:00 03/17/18 07:27 Duoneb Neb (Sharmila) NEB Not Given Q6HR NEB SHARMILA Albuterol 1 ampul 03/12/18 00:53 03/15/18 00:36 Duoneb Neb (Prn) NEB 1 ampul Q2HR NEB PRN Administration SHORTNESS OF BREATH/WHEEZING Chlorhexidine Gluconate 3 pack 03/13/18 04:00 03/17/18 03:09 Chlorhexidine 2% Cloth TOPICAL 03/18/18 03:59 Not Given DAILY@0400 SHARMILA Ferrous Sulfate 325 mg 03/12/18 09:00 03/17/18 12:52 Ferosul PO Not Given TID SHARMILA Potassium Chloride/Dextrose 1,000 mls @ 75 mls/hr 03/13/18 11:00 03/17/18 00: 16 D5w + Kcl 20 Meq Inj IV.CONT 75 mls/hr .[id number] SHARMILA Administration Cefepime HCl 1,000 mg/ Sodium 100 mls @ 200 mls/hr 03/14/18 14:00 03/17/18 06 :46 Chloride IV.SIG Infused Q8H SHARMILA Infusion Azithromycin 500 mg/ Sodium 250 mls @ 250 mls/hr 03/15/18 01:00 03/17/18 05: 27 Chloride IV.SIG Infused Q24H SHARMILA Infusion Lactated Ringer's 1,000 mls @ 30 mls/hr 03/17/18 05:45 03/17/18 13:17 Lr 1000 Ml Inj IV.CONT 03/18/18 05:44 30 mls/hr .Q24H ONE Administration Insulin Aspart 0 unit 03/13/18 12:00 03/17/18 12:21 Novolog Insulin Correctional Sugar Inj SQ Not Given ACHS SHARMILA Protocol Lansoprazole 15 mg 03/14/18 15:00 03/17/18 10:53 Prevacid Solutab NG/OG Not Given DAILY SHARMILA Levetiracetam 100 mg 03/12/18 09:00 03/17/18 10:54 Keppra Liq PO Not Given BID SHARMILA Mirtazapine 7.5 mg 03/16/18 21:00 03/16/18 22:53 Remeron PO 7.5 mg HS SHARMILA Administration Phenytoin 125 mg 03/12/18 09:00 03/17/18 10:54 Dilantin Infatabs Chewable G-TUBE Not Given BID SHARMILA Potassium Bicarb/Potassium Chloride 25 meq 03/13/18 13:00 03/17/18 10:54 K-Lyte Cl Eff PO Not Given BID SHARMILA Pravastatin Sodium 20 mg 03/12/18 09:00 03/17/18 10:53 Pravachol PO Not Given BID SHARMILA Senna/Docusate Sodium 1 tab 03/12/18 09:00 03/17/18 10:53 Whitney-Colace PO Not Given BID SHARMILA Sodium Chloride 2 ml 03/12/18 09:00 03/17/18 10:53 Ns Flush IV.FLUSH 2 ml BID SHARMILA Administration Triamcinolone Acetonide 1 applicatio 03/12/18 09:00 03/17/18 10:40 Aristocort 0.1% Cream TOPICAL 1 applicatio BID SHARMILA Administration Objective Remarks: GENERAL: elderly lady, chronically ill appearing SKIN: Warm and dry. HEAD: Normocephalic. EYES: No scleral icterus. No injection or drainage. RESPIRATORY: No accessory muscle use. GASTROINTESTINAL: Abdomen soft, non-tender, nondistended. EXTREMITIES: No cyanosis, or edema. MUSCULOSKELETAL: Adequate muscle tone. NEUROLOGICAL: dementia Assessment/Plan - Plan 1. Thrombocytopenia: No evidence of DIC, TMA. No exposure to heparin. Nutritional studies replete. Likely secondary to infection, antibiotic therapy. continue to trend CBC.
--- NOTE | 2018-03-17 14:35 | P.PNCC ---
Subjective Subjective Remarks/Hospital Course: 72-year-old female presents for evaluation of shortness of breath. Patient comes from an SNF. She has history of CVA with right-sided hemiparesis, seizure disorder, hypertension, asthma, schizoaffective disorder, dementia, heart failure. According to EMS, they were called for shortness of breath. However, her oxygen saturations were 97% on oxygen. Appears to be at her baseline according to EMS. She is slightly tachycardic, 110-120. According to records, she is on Coumadin. Patient is unable to contribute any history or physical. According to SNF records, she is currently on Levaquin for congestion. In the emergency department she was found to have a sodium level of 178/180 and has been admitted to ICU. 03/13: Serum sodium and osmolality status. Renal function is responding appropriately to the hypotonic fluid resuscitation. We will start to replace potassium now this allowing us to become more aggressive with glucose control. ____ 03/17: Patient transferred to hospitalist service/ med surg, reportedly pulled out her PEG tube yesterday and was scheduled for PEG replacement in same day surgery today. She was noted to be tachypneic and distressed, procedure was cancelled and she was transferred to [facility] [place]. The patient offered no complaints on arrival, when asked if she felt short of breath or felt anxious she told me "no ". Objective Vital Signs / I&O: Vital Signs 03/16/18 15:57 03/16/18 15:58 03/16/18 16:00 Temperature Pulse Rate 102 H 84 Respiratory Rate 20 18 Blood Pressure 120/69 Pulse Oximetry 95 95 03/16/18 18:00 03/16/18 20:00 03/16/18 20:58 Temperature 99 F Pulse Rate 109 H 110 H 109 H Respiratory Rate 18 18 Blood Pressure 151/65 H Pulse Oximetry 96 03/17/18 00:00 03/17/18 04:00 03/17/18 04:31 Temperature 98.5 F 97.7 F Pulse Rate 110 H 115 H 103 H Respiratory Rate 18 20 19 Blood Pressure 142/63 H 120/81 Pulse Oximetry 94 L 94 L 95 03/17/18 08:00 03/17/18 12:00 03/17/18 13:35 Temperature 98.5 F 98.1 F Pulse Rate 106 H 108 H Respiratory Rate 20 20 Blood Pressure 145/66 H 150/65 H 164/79 H Pulse Oximetry 100 95 03/17/18 14:20 Temperature Pulse Rate Respiratory Rate Blood Pressure Pulse Oximetry 100 Intake & Output 03/16/18 03/17/18 03/17/18 18:59 06:59 18:59 Intake Total 1100 / 1100 1450 / 1450 Output Total 800 / 800 4 / 4 Balance 300 / 300 1446 / 1446 Weight 84.7 kg Intake: IV 1100 / 1100 1450 / 1450 D5W + KCL 20 mEq Inj 1,000 ML @ 1000 / 1000 1000 / 1000 75 mls/hr IV.CONT .[id number] CELESTE Rx#:[id number] Azithromycin Inj 500 MG In NS 250 / 250 Inj 250 ML @ 250 mls/hr IV.SIG Q24H CELESTE Rx#:[id number] Maxipime Inj 1,000 MG In NS Inj 100 / 100 200 / 200 100 ML @ 200 mls/hr IV.SIG Q8H CELESTE Rx#:[id number] Output: Urine 800 / 800 Urine/Stool Mix 4 / 4 Other: # Incontinent Voids 4 Date of Last Bowel Movement 03/16/18 03/17/18 # Incontinent Bowel Movements 2 Result Diagrams: 03/17/18 05:54 03/17/18 05:54 Objective Remarks: GEN: Chronically ill, frail-appearing elderly female, no acute distress HEENT: NCAT, mucosa moist NECK: Trachea midline CARDIO: Regular rate and rhythm PULM: Coarse breath sounds bilaterally, normal work of breathing, O2 sats 100% on NC ABD/GI: PEG site clean, no drainage, abdomen soft and non-tender EXT/MSK: Trace peripheral edema SKIN: No rashes or lesions NEURO: Awake, alert, oriented to person and place but not time, follows commands , answers most questions appropriately. Hemiplegic on right side. Speech garbled but coherent. PSYCH: Calm, no agitation Assessment and Plan - Assessment and Plan Plan: Pneumonia/ Dyspnea -Healthcare associated -Cefepime, azithromycin, vancomycin, antibiotics day #6 * Random vanc level 22.6 yesterday, continue to monitor therapeutic drug levels * Can likely stop antibiotics after 7-10 days total -Blood cultures show no growth at 5 days, patient afebrile since admission, no leukocytosis -Duonebs as needed -Repeat CXR unchanged from previous -ABG 7.42/32/20/76/-3.3 on 2L NC Hypernatremia -Secondary to severe dehydration, improving -Continue D5W + 40 mEq KCl at 75 cc/hr -Resume free water flushes after PEG replacement -Strict I's and O's Acute kidney injury -Improving, creat today 1.59 -Monitor urine output -Avoid nephrotoxic agents Dysphagia -Will need PEG replacement * This has reportedly been out for at least a day. I was unable to pass a Rosales through the tract under sterile conditions at bedside. Will need to be rescheduled with GI. Anemia, Thrombocytopenia -Iron supplement -Thrombocytopenia likely secondary to sepsis, heme following -Abdominal US ordered, limited exam but no specific abnormalities noted Seizure disorder -Continue keppra and dilantin Dyslipidemia -Pravastatin Hypertension -Hold home meds while suspected sepsis -Resume when indicated History of left MCA CVA -Coumadin currently on hold due to thrombocytopenia and need for replacement PEG DVT GI prophylaxis -Teds SCDs -Pepcid Overall impression: This patient has multiple comorbidities and there was a concern for respiratory decompensation during her procedure. She will need close observation in the ICU overnight and will need rescheduling of PEG replacement. Level 2 To help prompt me to consider important information that might be impacting today's encounter and assessment, information from prior notes written by myself or my colleagues may have been "brought forward" into today's note. My signature on this note, however, is an attestation that I personally performed the exam, history, and/or decision-making noted today, and, unless otherwise indicated, the interactions with patient, family, and staff as well as the review of records all occurred today. I also attest that the listed assessment and stated plan reflect my best clinical judgment today based on the combination of historical information, prior notes, and today's exam/ interactions. Code Status: Full
[2018-03-17 14:44] LABS: ABG Base Excess -3.3 mmol/L (-2-2); ABG PCO2 32 mmHg (38-42); ABG PO2 76 mmHG (61-120)
--- NOTE | 2018-03-17 14:51 | P.EN ---
Received a telephone call from anesthesiology a same-day surgery as patient is being prepped for G-tube placement as patient had significant tachypnea and transfer to intensive care unit was done with stat ABGs and portable chest x- ray. Consult to port crane operator Dr. Layton given. Patient is full code.
[2018-03-17] MEDS ORDERED: Lidocaine 2% Jelly 5 ML Syringe TOPICAL ONE (14:53)
--- NOTE | 2018-03-17 14:54 | XR ---
EXAM DATE: 03/17/2018 2:43 PM EST AGE/SEX: 72 years / Female INDICATIONS: Short of breath. CLINICAL DATA: This is the patient's subsequent encounter. Patient reports that signs and symptoms h ave been present for 2 days and indicates a pain score of Nonresponsive. MEDICAL/SURGICAL HISTORY: Non-responsive. Non-responsive. COMPARISON: [facility] [place]ST 1V SINGLE AP, 03/16/2018. . FINDINGS: 2 portable frontal views of the chest are blurred by motion artifact. A consolidation involving the r ight lower lobe is unchanged. Left lung is clear. No effusions. Heart is normal in size. Surgical cli ps overlie the left axilla. A catheter overlies the right chest. CONCLUSION: Unchanged right lower lobe infiltrate. Electronically signed by: Manny Starr MD 03/17/2018 2:53 PM EST
--- NOTE | 2018-03-17 15:12 | P.PNPAL ---
Reason for Visit Reason for visit: a. To assist with evaluation and management of symptoms including: Pain. b. To assist medical decision maker(s) with: better understanding of current medical conditions; weighing benefits/burdens of medical treatment options; making medical treatment decisions. Subjective Subjective/Interval History: Patient well-known to palliative care services from previous hospitalizations. Allergy care follow-up for further clarification of goals of care, family support. Patient pulled her NG tube yesterday, plan for placement today. However, while prepping for intervention, patient became significantly tachypneic and was transferred to medical ICU for further monitoring and management. Patient seen in medical ICU, she was resting in bed in mild to moderate distress secondary to increased work of breathing. Respiratory rate in the mid 30s during my visit, patient accessory muscles. Awake, alert to self only. Verbal with slurred speech secondary to aphasia/facial droop. Denies pain, shortness of breath or abdominal discomfort. Chest x-ray revealing unchanged right lower lobe infiltrate. Stat ABG indicating PCO2 of 32 , currently tolerating O2 via nasal cannula 2 L. Case discussed with bedside RN Janine. Telephone call to patient's daughter Manda -left message in , no answer/unable to leave message. Called son Herrera , no answer and unable to leave message. Called son Todd , no answer. Advance Directives Living Will: Never completed Health Care Surrogate: Never completed Durable Power of Thermoplastic Technician: Copy in medical record Objective Vital Signs: Vital Signs 03/16/18 15:57 03/16/18 15:58 03/16/18 16:00 Temperature Pulse Rate 102 H 84 Respiratory Rate 20 18 Blood Pressure 120/69 Pulse Oximetry 95 95 03/16/18 18:00 03/16/18 20:00 03/16/18 20:58 Temperature 99 F Pulse Rate 109 H 110 H 109 H Respiratory Rate 18 18 Blood Pressure 151/65 H Pulse Oximetry 96 03/17/18 00:00 03/17/18 04:00 03/17/18 04:31 Temperature 98.5 F 97.7 F Pulse Rate 110 H 115 H 103 H Respiratory Rate 18 20 19 Blood Pressure 142/63 H 120/81 Pulse Oximetry 94 L 94 L 95 03/17/18 08:00 03/17/18 12:00 03/17/18 13:35 Temperature 98.5 F 98.1 F Pulse Rate 106 H 108 H Respiratory Rate 20 20 Blood Pressure 145/66 H 150/65 H 164/79 H Pulse Oximetry 100 95 03/17/18 14:20 Temperature Pulse Rate Respiratory Rate Blood Pressure Pulse Oximetry 100 Intake & Output 03/16/18 03/17/18 03/17/18 18:59 06:59 18:59 Intake Total 1100 / 1100 1450 / 1450 Output Total 800 / 800 4 / 4 Balance 300 / 300 1446 / 1446 Weight 84.7 kg Intake: IV 1100 / 1100 1450 / 1450 D5W + KCL 20 mEq Inj 1,000 ML @ 1000 / 1000 1000 / 1000 75 mls/hr IV.CONT .[id number] [facility] Rx#:[id number] Azithromycin Inj 500 MG In NS 250 / 250 Inj 250 ML @ 250 mls/hr IV.SIG Q24H [facility]LESTE Rx#:[id number] Maxipime Inj 1,000 MG In NS Inj 100 / 100 200 / 200 100 ML @ 200 mls/hr IV.SIG Q8H [facility]LE[facility] Rx#:[id number] Output: Urine 800 / 800 Urine/Stool Mix 4 / Other: # Incontinent Voids 4 Date of Last Bowel Movement 03/16/18 03/17/18 # Incontinent Bowel Movements 2 Physical Exam: CONSTITUTIONAL/GENERAL: This is an elderly female resting in bed in moderate distress secondary to increased work of breathing. TUBES/LINES/DRAINS: PIV, NC, bilateral SCDs. SKIN: No jaundice, rashes, or lesions. No wounds seen anteriorly. Skin temperature appropriate. Not diaphoretic. HEAD: Atraumatic. Normocephalic. EYES: Pupils equal and round and reactive. Extraocular motions intact. No scleral icterus. No injection or drainage. Fundi not examined. ENT: Hearing grossly normal. Nose without bleeding or purulent drainage. Moist oral mucosa. NECK: Trachea midline. Supple, nontender. CARDIOVASCULAR: Tachycardic with heart rate in the 110s. No murmurs, gallops, or rubs. RESPIRATORY/CHEST: Symmetric, increased work of breathing using accessory muscles. Grunting, rhonchi. O2 via nasal cannula. GASTROINTESTINAL: Abdomen soft, non-tender, nondistended. Bowel sounds present. Dressing to mid abdomen, site of PEG tube incision. GENITOURINARY: Without palpable bladder distension. MUSCULOSKELETAL: Extremities without clubbing, cyanosis, or edema. No mottling or clubbing. Foot drops bilaterally. Contracted right hand. NEUROLOGICAL: Awake and alert x self. Aphasic with slurred speech, difficult to communicate. Right-sided weakness. PSYCHIATRIC: Anxious/restless. Covering her face with blanket. Diagnostic Tests Laboratory: Laboratory Results - last 72 hr 03/14/18 03/14/18 03/14/18 04:08 17:01 18:11 WBC 6.8 RBC 3.01 L Hgb 8.9 L Hct 27.6 L MCV 91.8 D MCH 29.7 MCHC 32.3 RDW 15.6 Plt Count 45 L D MPV 12.9 H Prelim Diff (Auto) Slide review pending Neut % (Auto) 69.2 Lymph % (Auto) 17.2 [place] % (Auto) 9.2 H Eos % (Auto) 4.2 H Baso % (Auto) 0.2 Neut # (Auto) 4.7 Lymph # (Auto) 1.2 [place] # (Auto) 0.6 Eos # (Auto) 0.3 Baso # (Auto) 0.0 WBC Differential . Diff Scan Auto diff confirmed Seg Neuts % (Manual) Band Neuts % (Manual) Lymphocytes % (Manual) Monocytes % (Manual) Eosinophils % (Manual) Metamyelocytes % (Man) Abs Neuts (Manual) Nucleated RBCs/100 WBC Differential Comment . Toxic Granulation Platelet Estimate Low L Platelet Morphology Enlarged H RBC Morphology Normal Ovalocytes Smear Path Review Haptoglobin 133 PT INR Fibrinogen Puncture Site Patient Temperature O2 Saturation ABG pH ABG pCO2 ABG pO2 ABG HCO3 ABG O2 Content ABG Base Excess ABG Methemoglobin Mello Test Hemoglobin Carboxyhemoglobin O2 Delivery Device Liter Flow Critical Value Sodium Potassium Chloride Carbon Dioxide Anion Gap BUN Creatinine Estimated GFR POC Glucose 129 H Random Glucose Calcium Magnesium Lactate Dehydrogenase 470 H Vitamin B12 1577 H Folate Greater than 20.0 H Random Vancomycin 03/14/18 03/14/18 03/15/18 18:11 23:35 07:28 WBC RBC Hgb Hct MCV MCH MCHC RDW Plt Count MPV Prelim Diff (Auto) Neut % (Auto) Lymph % (Auto) [place] % (Auto) Eos % (Auto) Baso % (Auto) Neut # (Auto) Lymph # (Auto) [place] # (Auto) Eos # (Auto) Baso # (Auto) WBC Differential Diff Scan Seg Neuts % (Manual) Band Neuts % (Manual) Lymphocytes % (Manual) Monocytes % (Manual) Eosinophils % (Manual) Metamyelocytes % (Man) Abs Neuts (Manual) Nucleated RBCs/100 WBC Differential Comment Toxic Granulation Platelet Estimate Platelet Morphology RBC Morphology Ovalocytes Smear Path Review Haptoglobin PT INR Fibrinogen 480 H Puncture Site Patient Temperature O2 Saturation ABG pH ABG pCO2 ABG pO2 ABG HCO3 ABG O2 Content ABG Base Excess ABG Methemoglobin Mello Test Hemoglobin Carboxyhemoglobin O2 Delivery Device Liter Flow Critical Value Sodium Potassium Chloride Carbon Dioxide Anion Gap BUN Creatinine Estimated GFR POC Glucose 138 H 166 H Random Glucose Calcium Magnesium Lactate Dehydrogenase Vitamin B12 Folate Random Vancomycin 03/15/18 03/15/18 03/15/18 09:22 09:22 09:22 WBC 6.3 RBC 2.80 L Hgb 8.4 L Hct 26.2 L MCV 93.6 MCH 29.9 MCHC 32.0 RDW 16.0 Plt Count 41 L MPV 12.4 H Prelim Diff (Auto) Slide review pending Neut % (Auto) 66.9 Lymph % (Auto) 21.1 [place] % (Auto) 8.1 H Eos % (Auto) 3.7 Baso % (Auto) 0.2 Neut # (Auto) 4.2 Lymph # (Auto) 1.3 [place] # (Auto) 0.5 Eos # (Auto) 0.2 Baso # (Auto) 0.0 WBC Differential . Diff Scan Auto diff confirmed Seg Neuts % (Manual) Band Neuts % (Manual) Lymphocytes % (Manual) Monocytes % (Manual) Eosinophils % (Manual) Metamyelocytes % (Man) Abs Neuts (Manual) Nucleated RBCs/100 WBC Differential Comment . Toxic Granulation Platelet Estimate Platelet Morphology RBC Morphology Ovalocytes Smear Path Review Haptoglobin PT 15.3 H INR 1.5 Fibrinogen Puncture Site Patient Temperature O2 Saturation ABG pH ABG pCO2 ABG pO2 ABG HCO3 ABG O2 Content ABG Base Excess ABG Methemoglobin Mello Test Hemoglobin Carboxyhemoglobin O2 Delivery Device Liter Flow Critical Value Sodium 162 H* Potassium 4.4 D Chloride 131 H Carbon Dioxide 22.0 Anion Gap 9 BUN 34 H Creatinine 2.37 H Estimated GFR 25 L POC Glucose Random Glucose 153 H Calcium 8.0 L Magnesium 3.1 H Lactate Dehydrogenase Vitamin B12 Folate Random Vancomycin 03/15/18 03/15/18 03/16/18 12:43 17:32 05:29 WBC RBC Hgb Hct MCV MCH MCHC RDW Plt Count MPV Prelim Diff (Auto) Neut % (Auto) Lymph % (Auto) [place] % (Auto) Eos % (Auto) Baso % (Auto) Neut # (Auto) Lymph # (Auto) [place] # (Auto) Eos # (Auto) Baso # (Auto) WBC Differential Diff Scan Seg Neuts % (Manual) Band Neuts % (Manual) Lymphocytes % (Manual) Monocytes % (Manual) Eosinophils % (Manual) Metamyelocytes % (Man) Abs Neuts (Manual) Nucleated RBCs/100 WBC Differential Comment Toxic Granulation Platelet Estimate Platelet Morphology RBC Morphology Ovalocytes Smear Path Review Haptoglobin PT INR Fibrinogen Puncture Site Patient Temperature O2 Saturation ABG pH ABG pCO2 ABG pO2 ABG HCO3 ABG O2 Content ABG Base Excess ABG Methemoglobin Mello Test Hemoglobin Carboxyhemoglobin O2 Delivery Device Liter Flow Critical Value Sodium 163 H* Potassium 4.1 Chloride 133 H Carbon Dioxide 21.9 Anion Gap 8 BUN 28 H Creatinine 1.92 H Estimated GFR 31 L POC Glucose 175 H 158 H Random Glucose 114 H Calcium 7.8 L Magnesium 2.9 H Lactate Dehydrogenase Vitamin B12 Folate Random Vancomycin 22.1 03/16/18 03/16/18 03/16/18 05:29 10:47 13:08 WBC 7.0 RBC 2.56 L Hgb 7.8 L Hct 24.3 L MCV 94.7 MCH 30.3 MCHC 31.9 L RDW 16.2 Plt Count 44 L MPV 11.8 H Prelim Diff (Auto) Slide review pending Neut % (Auto) 65.1 Lymph % (Auto) 21.4 [place] % (Auto) 9.4 H Eos % (Auto) 3.9 Baso % (Auto) 0.2 Neut # (Auto) 4.6 Lymph # (Auto) 1.5 [place] # (Auto) 0.7 Eos # (Auto) 0.3 Baso # (Auto) 0.0 WBC Differential . Diff Scan Auto diff confirmed Seg Neuts % (Manual) Band Neuts % (Manual) Lymphocytes % (Manual) Monocytes % (Manual) Eosinophils % (Manual) Metamyelocytes % (Man) Abs Neuts (Manual) Nucleated RBCs/100 WBC Differential Comment . Toxic Granulation Platelet Estimate Low L Platelet Morphology Enlarged H RBC Morphology Ovalocytes Smear Path Review Haptoglobin PT INR Fibrinogen Puncture Site Patient Temperature O2 Saturation ABG pH ABG pCO2 ABG pO2 ABG HCO3 ABG O2 Content ABG Base Excess ABG Methemoglobin Mello Test Hemoglobin Carboxyhemoglobin O2 Delivery Device Liter Flow Critical Value Sodium Potassium Chloride Carbon Dioxide Anion Gap BUN Creatinine Estimated GFR POC Glucose 122 H 119 H Random Glucose Calcium Magnesium Lactate Dehydrogenase Vitamin B12 Folate Random Vancomycin 03/16/18 03/16/18 03/16/18 13:14 17:43 21:54 WBC RBC Hgb Hct MCV MCH MCHC RDW Plt Count MPV Prelim Diff (Auto) Neut % (Auto) Lymph % (Auto) [place] % (Auto) Eos % (Auto) Baso % (Auto) Neut # (Auto) Lymph # (Auto) [place] # (Auto) Eos # (Auto) Baso # (Auto) WBC Differential Diff Scan Seg Neuts % (Manual) Band Neuts % (Manual) Lymphocytes % (Manual) Monocytes % (Manual) Eosinophils % (Manual) Metamyelocytes % (Man) Abs Neuts (Manual) Nucleated RBCs/100 WBC Differential Comment Toxic Granulation Platelet Estimate Platelet Morphology RBC Morphology Ovalocytes Smear Path Review Haptoglobin PT 13.5 H INR 1.3 Fibrinogen Puncture Site Patient Temperature O2 Saturation ABG pH ABG pCO2 ABG pO2 ABG HCO3 ABG O2 Content ABG Base Excess ABG Methemoglobin Mello Test Hemoglobin Carboxyhemoglobin O2 Delivery Device Liter Flow Critical Value Sodium Potassium Chloride Carbon Dioxide Anion Gap BUN Creatinine Estimated GFR POC Glucose 130 H 111 H Random Glucose Calcium Magnesium Lactate Dehydrogenase Vitamin B12 Folate Random Vancomycin 03/17/18 03/17/18 03/17/18 03:08 05:54 05:54 WBC 5.3 RBC 2.61 L Hgb 7.8 L Hct 24.5 L MCV 93.8 MCH 30.0 MCHC 32.0 RDW 15.7 Plt Count 54 L MPV 11.6 H Prelim Diff (Auto) Manual diff required Neut % (Auto) Lymph % (Auto) [place] % (Auto) Eos % (Auto) Baso % (Auto) Neut # (Auto) Lymph # (Auto) [place] # (Auto) Eos # (Auto) Baso # (Auto) WBC Differential Manual diff final Diff Scan Seg Neuts % (Manual) 65 Band Neuts % (Manual) 5 Lymphocytes % (Manual) 20 Monocytes % (Manual) 7 Eosinophils % (Manual) 2 Metamyelocytes % (Man) 1 Abs Neuts (Manual) 3.8 Nucleated RBCs/100 WBC 1 H Differential Comment . Toxic Granulation 2+ H Platelet Estimate Low L Platelet Morphology Enlarged H RBC Morphology Ovalocytes 1+ H Smear Path Review Haptoglobin PT 13.1 H INR 1.3 Fibrinogen Puncture Site Patient Temperature O2 Saturation ABG pH ABG pCO2 ABG pO2 ABG HCO3 ABG O2 Content ABG Base Excess ABG Methemoglobin Mello Test Hemoglobin Carboxyhemoglobin O2 Delivery Device Liter Flow Critical Value Sodium Potassium Chloride Carbon Dioxide Anion Gap BUN Creatinine Estimated GFR POC Glucose 120 H Random Glucose Calcium Magnesium Lactate Dehydrogenase Vitamin B12 Folate Random Vancomycin 03/17/18 03/17/18 03/17/18 05:54 08:33 12:14 WBC RBC Hgb Hct MCV MCH MCHC RDW Plt Count MPV Prelim Diff (Auto) Neut % (Auto) Lymph % (Auto) [place] % (Auto) Eos % (Auto) Baso % (Auto) Neut # (Auto) Lymph # (Auto) [place] # (Auto) Eos # (Auto) Baso # (Auto) WBC Differential Diff Scan Seg Neuts % (Manual) Band Neuts % (Manual) Lymphocytes % (Manual) Monocytes % (Manual) Eosinophils % (Manual) Metamyelocytes % (Man) Abs Neuts (Manual) Nucleated RBCs/100 WBC Differential Comment Toxic Granulation Platelet Estimate Platelet Morphology RBC Morphology Ovalocytes Smear Path Review Haptoglobin PT INR Fibrinogen Puncture Site Patient Temperature O2 Saturation ABG pH ABG pCO2 ABG pO2 ABG HCO3 ABG O2 Content ABG Base Excess ABG Methemoglobin Mello Test Hemoglobin Carboxyhemoglobin O2 Delivery Device Liter Flow Critical Value Sodium 160 H* Potassium 4.0 Chloride 130 H Carbon Dioxide 21.8 Anion Gap 8 BUN 23 H Creatinine 1.59 H Estimated GFR 39 L POC Glucose 118 H 130 H Random Glucose 107 H Calcium 8.2 L Magnesium 2.7 H Lactate Dehydrogenase Vitamin B12 Folate Random Vancomycin 03/17/18 14:35 WBC RBC Hgb Hct MCV MCH MCHC RDW Plt Count MPV Prelim Diff (Auto) Neut % (Auto) Lymph % (Auto) [place] % (Auto) Eos % (Auto) Baso % (Auto) Neut # (Auto) Lymph # (Auto) [place] # (Auto) Eos # (Auto) Baso # (Auto) WBC Differential Diff Scan Seg Neuts % (Manual) Band Neuts % (Manual) Lymphocytes % (Manual) Monocytes % (Manual) Eosinophils % (Manual) Metamyelocytes % (Man) Abs Neuts (Manual) Nucleated RBCs/100 WBC Differential Comment Toxic Granulation Platelet Estimate Platelet Morphology RBC Morphology Ovalocytes Smear Path Review Haptoglobin PT INR Fibrinogen Puncture Site Left brachial Patient Temperature 98.6 O2 Saturation 93 ABG pH 7.42 ABG pCO2 32 L ABG pO2 76 ABG HCO3 20 L ABG O2 Content 11.1 L ABG Base Excess -3.3 L ABG Methemoglobin 1.6 Mello Test Present Hemoglobin 8.4 L Carboxyhemoglobin 1.5 O2 Delivery Device Nasal cannula Liter Flow 2.00 Critical Value No Sodium Potassium Chloride Carbon Dioxide Anion Gap BUN Creatinine Estimated GFR POC Glucose Random Glucose Calcium Magnesium Lactate Dehydrogenase Vitamin B12 Folate Random Vancomycin Result Diagrams: 03/17/18 05:54 03/17/18 05:54 Microbiology: Microbiology 03/16/18 18:00 Stool Occult Blood ([id number]) - Final Stool Hemoccult negative 03/11/18 23:26 Aerobic Blood Culture - Final Blood - Peripheral No growth in 5 days Anaerobic Blood Culture - Final No growth in 5 days 03/11/18 23:26 Aerobic Blood Culture - Final Blood - Peripheral No growth in 5 days Anaerobic Blood Culture - Final No growth in 5 days Assessment and Plan - Disease Oriented Problem List (1) PEG (percutaneous endoscopic gastrostomy) adjustment/replacement/removal (2) Healthcare-associated pneumonia (3) Severe sepsis (4) Acute hypernatremia (5) Dehydration (6) Acute renal failure (7) Physical deconditioning (8) Bedbound Pertinent Non-Medical Issues: Psychosocial: Patient is a long-term resident of [facility] re[facility] since 2009. . She has 3 adult children. Spiritual: Alevism vik. Legal: Power of real estate associate attorney completed. Ethical issues impacting care: No ethical issues identified. Important Contacts: Daughter Cat Childress , , Son Todd Childress Son Herrera Childress [phone] Prognosis: Ms. Childress is a 72-year-old female with medical history significant for CVA secondary to intracranial aneurysm, bedbound, hypertension, atrial fibrillation on Coumadin, seizures, COPD, GERD, schizophrenia, dementia and hyperlipidemia. Patient is well-known to palliative care services from prior hospitalizations. She presented to ED on 03/11/18, she was found to be severely hypernatremic, septic and on acute kidney failure. Patient is totally bedbound and dependent on others for care, resident of long-term facility multiple prior hospitalizations in 2017 and 2018. She remains at a very high risk for further complications, continued decline and given multiple comorbidities, profound physical deconditioning, acute events and advanced age. Code Status: Full Code Plan: * CODE STATUS: Full code * HEALTHCARE DECISION-MAKING: Patient unable to participating medical decision making secondary to clinical condition. History of stroke with aphasia, dementia and a schizoaffective disorder. Not likely to regain medical decision- making capacity. Power of real estate associate attorney completed by does not include healthcare decision making. Patient is and has 3 adult children. As per [place] statute, healthcare proxy decision making falls to the majority of patient's children for which she has 3: Cat, Herrera and Magdaleno. * GOALS OF CARE: Palliative care attempted unsuccessfully to speak with patient' s children. Goals of treatment aggressive as per family conversation with attending Dr. Byrnes. Patient known to palliative care services during multiple prior hospitalizations, goals of treatment have remained aggressive. Hospice has previously been discussed with patient's family and declined. * SYMPTOMS: = Dyspnea: Patient with tachypnea and increased work of breathing using accessory muscles. She was transferred to medical ICU for further monitoring and management. Campaign Specialist following. = Dysphagia: Secondary to stroke. PEG tube feeding, pulled out PEG tube this morning. GI following, plan to replace. =Debility: Progressive. Patient is a long-term resident secondary to CVA. She is totally bedbound and dependent for all others for care. Right-sided hemiparesis and aphasia. Right upper extremity is contracted. Likely to continue to worsen given clinical condition. = Restlessness/anxiety. Exacerbated by clinical condition in the setting of sepsis, hyponatremia. * Case discussed with bedside RN. * Palliative care will continue to follow-up for further clarifications of goals of care as patient's clinical course continues to evolve. Time Spent Total Floor Time (mins): 26 (Total time to include review of medical records, physical exam, attempts at communicating with patient's children, case discussion with bedside RN.) >50% Time in Counseling or Coordination of Care: Yes (Total visit time = 26 minutes; > 50% spent counseling/coordinating care) Attestation Attestation: To help prompt me to consider important information that might be impacting today's encounter and assessment, information from prior notes written by myself or my colleagues may have been "brought forward" into today's note. My signature on this note, however, is an attestation that I personally performed the exam, history, and/or decision-making noted today, and, unless otherwise indicated, the interactions with patient, family, and staff as well as the review of records all occurred today. I also attest that the listed assessment and stated plan reflect my best clinical judgment today based on the combination of historical information, prior notes, and today's exam/ interactions. When time spent is documented, it refers only to time spent today by the signer, or if indicated, combined time spent today by collaborating physician/nurse practitioner.
[2018-03-17] MEDS ORDERED: hydrALAZINE HCl Inj 20 MG/ML Vial IV.PUSH PRN (15:19)
[2018-03-17] MEDS ORDERED: Labetalol HCl Inj 100 MG/20 ML Vial IV.PUSH PRN (15:19)
[2018-03-17] MEDS: Mirtazapine 15 MG Tablet PO SCH (21:49)
[2018-03-17] MEDS: SODIUM CHLOR IV.SIG SCH (23:34)
[2018-03-17] MEDS: FOSPHENYTOIN IV.SIG SCH (23:34)
[2018-03-18] MEDS: Azithromycin Inj 500 MG in Sodium Chlor 0.9% Inj 250 ML IV.SIG SCH (00:29)
[2018-03-18] MEDS: KCL 20 mEq/Dextrose 5% Inj 1,000 ML IV.CONT SCH ×3 (00:31→18:31)
[2018-03-18 06:34] LABS: INR 1.3 Ratio; Prothrombin Time 13.4 sec (9.8-11.6)
[2018-03-18 06:43] LABS: Hematocrit 25.8 % (35.0-46.0); Hemoglobin 8.3 gm/dL (11.6-15.3); Mean Corpuscular HGB Conc 32.1 % (32.0-36.0); Mean Corpuscular Hemoglobin 30.4 pg (27.0-34.0); Mean Corpuscular Volume 94.8 fL (80.0-100.0); Platelet Count 78 th/mm3 (150-450); Red Blood Count 2.72 mil/mm3 (4.00-5.30); Red Cell Distribution Width 15.4 % (11.6-17.2); White Blood Count 6.7 th/mm3 (4.0-11.0)
[2018-03-18 07:16] LABS: Calcium 7.9 mg/dL (8.5-10.1); Carbon Dioxide 22.4 meq/L (21.0-32.0); Magnesium 2.4 mg/dL (1.5-2.5); Potassium 4.2 meq/L (3.5-5.1); Vancomycin,Random 12.3 Comment
[2018-03-18 07:48] LABS: Eosinophils 3 % (0-4); Lymphocytes 23 % (9-44); Metamyelocytes 1 % (0-1); Monocytes 8 % (0-8); Platelet Morphology Normal (Normal); Tallied Nucleated RBC 2 (0-0)
--- NOTE | 2018-03-18 07:57 | P.PNCC ---
Subjective Subjective Remarks/Hospital Course: 72-year-old female presents for evaluation of shortness of breath. Patient comes from an SNF. She has history of CVA with right-sided hemiparesis, seizure disorder, hypertension, asthma, schizoaffective disorder, dementia, heart failure. According to EMS, they were called for shortness of breath. However, her oxygen saturations were 97% on oxygen. Appears to be at her baseline according to EMS. She is slightly tachycardic, 110-120. According to records, she is on Coumadin. Patient is unable to contribute any history or physical. According to SNF records, she is currently on Levaquin for congestion. In the emergency department she was found to have a sodium level of 178/180 and has been admitted to ICU. 03/13: Serum sodium and osmolality status. Renal function is responding appropriately to the hypotonic fluid resuscitation. We will start to replace potassium now this allowing us to become more aggressive with glucose control. ____ 03/17: Patient transferred to hospitalist service/ med surg, reportedly pulled out her PEG tube yesterday and was scheduled for PEG replacement in same day surgery today. She was noted to be tachypneic and distressed, procedure was cancelled and she was transferred to [facility]. The patient offered no complaints on arrival, when asked if she felt short of breath or felt anxious she told me "no ". 03/18: No issues overnight. Patient has kept her blanket over her face throughout most of the night, is withdrawn and appears upset. Denies pain or shortness of breath. Objective Vital Signs / I&O: Vital Signs 03/17/18 08:00 03/17/18 12:00 03/17/18 13:35 Temperature 98.5 F 98.1 F Pulse Rate 106 H 108 H Respiratory Rate 20 20 Blood Pressure 145/66 H 150/65 H 164/79 H Pulse Oximetry 100 95 03/17/18 14:20 03/17/18 15:58 03/17/18 16:00 Temperature 98.6 F Pulse Rate 110 H 113 H Respiratory Rate 48 H 42 H Blood Pressure Pulse Oximetry 100 100 100 03/17/18 16:01 03/17/18 16:16 03/17/18 17:00 Temperature Pulse Rate 112 H 112 H 109 H Respiratory Rate 47 H 41 H 21 Blood Pressure 159/72 H Pulse Oximetry 97 100 03/17/18 17:01 03/17/18 20:00 03/17/18 22:00 Temperature 98.3 F Pulse Rate 107 H 99 H 108 H Respiratory Rate 47 H 22 Blood Pressure 100/58 L 121/76 Pulse Oximetry 100 100 03/17/18 22:43 03/17/18 22:46 03/18/18 00:00 Temperature 98.1 F Pulse Rate 101 H 109 H Respiratory Rate 27 H 28 H Blood Pressure 158/94 H Pulse Oximetry 100 100 03/18/18 00:13 03/18/18 02:00 03/18/18 03:35 Temperature Pulse Rate 104 H Respiratory Rate Blood Pressure Pulse Oximetry 100 100 03/18/18 04:00 03/18/18 06:00 Temperature 98.8 F Pulse Rate 102 H 104 H Respiratory Rate 30 H Blood Pressure 143/61 H Pulse Oximetry 100 Intake & Output 03/17/18 03/18/18 03/18/18 18:59 06:59 18:59 Intake Total 1100 / 1100 1606 / 1606 Balance 1100 / 1100 1606 / 1606 Weight 85 kg Intake: IV 1100 / 1100 1606 / 1606 D5W + KCL 20 mEq Inj 1,000 ML @ 1000 / 1000 1000 / 1000 75 mls/hr IV.CONT .[id number] [facility] Rx#:[id number] Azithromycin Inj 500 MG In NS 250 / 250 Inj 250 ML @ 250 mls/hr IV.SIG Q24H [facility] Rx#:[id number] Maxipime Inj 1,000 MG In NS Inj 100 / 100 200 / 200 100 ML @ 200 mls/hr IV.SIG Q8H [facility]LE[facility] Rx#:[id number] Cerebyx Inj 125 MGPE In NS Inj 53 / 53 50 ML @ 210 mls/hr IV.SIG Q12H [facility] Rx#:[id number] Keppra Inj 250 MG In NS Inj 100 103 / 103 ML @ 400 mls/hr IV.SIG Q12H [facility]LE[facility] Rx#:[id number] Other: # Incontinent Voids 1 2 Date of Last Bowel Movement 03/17/18 03/17/18 # Incontinent Bowel Movements 1 2 Result Diagrams: 03/18/18 04:25 03/18/18 04:25 Objective Remarks: GEN: Chronically ill, frail-appearing elderly female HEENT: NCAT, mucosa moist NECK: Trachea midline CARDIO: Regular rate and rhythm PULM: Coarse breath sounds bilaterally, strong cough, normal work of breathing, O2 sats 100% on NC ABD/GI: PEG site clean, no drainage, abdomen soft and non-tender EXT/MSK: Trace peripheral edema SKIN: No rashes or lesions NEURO: Awake, alert, oriented to person but not place or time, follows commands , answers most questions appropriately. Hemiplegic on right side. Speech garbled but coherent. PSYCH: Appears upset, withdrawn Assessment and Plan - Assessment and Plan Plan: Pneumonia/ Dyspnea -Healthcare associated -Cefepime, azithromycin, vancomycin, antibiotics day #7 * Random vanc level 22.6 on 03/16, continue to monitor therapeutic drug levels * Would recommend 10 day course total given continued productive cough, overall improving -Blood cultures show no growth at 5 days, patient afebrile since admission, no leukocytosis -Duonebs as needed -CXR stable -Aggressive pulmonary toilet/ chest PT Hypernatremia -Secondary to severe dehydration, improving -Continue D5W + 40 mEq KCl at 75 cc/hr -Resume free water flushes after PEG replacement -Strict I's and O's Acute kidney injury -Improving, creat today 1.38 -Monitor urine output -Avoid nephrotoxic agents Dysphagia -Will need PEG replacement Anemia, Thrombocytopenia -Iron supplement -Thrombocytopenia likely secondary to sepsis, heme following, improving -Abdominal US ordered, limited exam but no specific abnormalities noted Seizure disorder -Continue keppra and dilantin Dyslipidemia -Pravastatin Hypertension -Can begin restarting home antihypertensives when patient has enteral access, recommend restarting metoprolol first History of left MCA CVA -Coumadin currently on hold due to thrombocytopenia and need for replacement PEG History of dementia -Patient upset this morning, may be due to environment change yesterday when she was moved to [facility]. Likely has some component of delirium on top of her dementia. -Delirium precautions (lights on/ shades up during the day, limit nighttime disruptions, frequent reorientation, avoid deliriogenic meds, avoid constipation / urinary retention) DVT GI prophylaxis -Teds SCDs -Pepcid Overall impression: Patient is improving, no current respiratory distress, can transfer back to hospitalist service Level 2 To help prompt me to consider important information that might be impacting today's encounter and assessment, information from prior notes written by myself or my colleagues may have been "brought forward" into today's note. My signature on this note, however, is an attestation that I personally performed the exam, history, and/or decision-making noted today, and, unless otherwise indicated, the interactions with patient, family, and staff as well as the review of records all occurred today. I also attest that the listed assessment and stated plan reflect my best clinical judgment today based on the combination of historical information, prior notes, and today's exam/ interactions. Code Status: Full
[2018-03-18] MEDS ORDERED: Vancomycin Inj 1,500 MG in Sodium Chlor 0.9% Inj 500 ML IV.SIG ONE (12:00)
--- NOTE | 2018-03-18 12:29 | P.PNPAL ---
Reason for Visit Reason for visit: a. To assist with evaluation and management of symptoms including: Pain, shortness of breath. b. To assist medical decision maker(s) with: better understanding of current medical conditions; weighing benefits/burdens of medical treatment options; making medical treatment decisions. Subjective Subjective/Interval History: Patient well-known to palliative care services from previous hospitalizations. palliative care follow-up for further clarification of goals of care, family support. Patient transferred to medical ICU yesterday secondary to tachypnea, respiratory distress. Patient seen in ICU, resting in bed in no acute distress. Awake, alert to self only. Verbal with slurred speech secondary to aphasia/facial droop. Denies pain, shortness of breath or abdominal discomfort. Putting blanket on top of her face. Currently tolerating O2 via nasal cannula 3 L, unlabored respirations in the low 20s. Patient afebrile, stable hemodynamically. Sodium remains elevated at 156 this morning. No family at bedside. Case discussed with bedside RN Soto. Patient to be transferred to medical floor under hospitalist services. Family/Friend Interactions: Telephone conversation with patient's daughter Cat Childress. Medical update provided. Family wishing to proceed with PEG tube placement with hopes for patient to transfer to her long-term facility. Goals remain aggressive. Advance Directives Living Will: Never completed Health Care Surrogate: Never completed Durable Power of Licensed Psychologist: Copy in medical record Objective Vital Signs: Vital Signs 03/17/18 13:35 03/17/18 14:20 03/17/18 15:58 Temperature Pulse Rate 110 H Respiratory Rate 48 H Blood Pressure 164/79 H Pulse Oximetry 100 100 03/17/18 16:00 03/17/18 16:01 03/17/18 16:16 Temperature 98.6 F Pulse Rate 113 H 112 H 112 H Respiratory Rate 42 H 47 H 41 H Blood Pressure 159/72 H Pulse Oximetry 100 97 03/17/18 17:00 03/17/18 17:01 03/17/18 18:01 Temperature Pulse Rate 109 H 107 H 106 H Respiratory Rate 21 47 H 53 H Blood Pressure 100/58 L 128/60 Pulse Oximetry 100 100 100 03/17/18 18:22 03/17/18 18:40 03/17/18 19:00 Temperature Pulse Rate 110 H 101 H 100 H Respiratory Rate 34 H 36 H 40 H Blood Pressure 158/74 H 122/69 Pulse Oximetry 97 100 100 03/17/18 19:01 03/17/18 19:21 03/17/18 19:40 Temperature Pulse Rate 103 H 98 H 99 H Respiratory Rate 35 H 20 31 H Blood Pressure 184/79 H 145/67 H 129/77 Pulse Oximetry 100 100 100 03/17/18 20:00 03/17/18 20:21 03/17/18 20:36 Temperature 98.3 F Pulse Rate 99 H 101 H 103 H Respiratory Rate 30 H 31 H 42 H Blood Pressure 121/76 131/102 H 177/70 H Pulse Oximetry 100 100 100 03/17/18 21:00 03/17/18 21:01 03/17/18 22:00 Temperature Pulse Rate 102 H 103 H 108 H Respiratory Rate 22 32 H 28 H Blood Pressure 158/70 H 142/61 H Pulse Oximetry 100 100 100 03/17/18 22:43 03/17/18 22:46 03/17/18 23:00 Temperature Pulse Rate 101 H 117 H Respiratory Rate 27 H 45 H Blood Pressure 157/69 H Pulse Oximetry 100 100 03/18/18 00:00 03/18/18 00:13 03/18/18 01:00 Temperature 98.1 F Pulse Rate 109 H 105 H Respiratory Rate 30 H 33 H Blood Pressure 158/94 H Pulse Oximetry 100 100 100 03/18/18 01:01 03/18/18 02:00 03/18/18 03:00 Temperature Pulse Rate 105 H 104 H 104 H Respiratory Rate 34 H 35 H 28 H Blood Pressure 141/58 H 134/61 124/58 L Pulse Oximetry 100 100 100 03/18/18 03:35 03/18/18 04:00 03/18/18 05:00 Temperature 98.8 F Pulse Rate 102 H 100 H Respiratory Rate 30 H 38 H Blood Pressure 143/61 H 159/68 H Pulse Oximetry 100 100 100 03/18/18 06:00 03/18/18 06:01 03/18/18 07:00 Temperature Pulse Rate 103 H 101 H 102 H Respiratory Rate 35 H 30 H 24 Blood Pressure 137/63 129/59 L Pulse Oximetry 100 99 100 03/18/18 08:00 03/18/18 09:00 03/18/18 10:00 Temperature Pulse Rate 112 H 105 H 103 H Respiratory Rate 47 H 36 H 32 H Blood Pressure 121/84 137/64 135/67 Pulse Oximetry 100 93 L 95 Intake & Output 03/17/18 03/18/18 03/18/18 18:59 06:59 18:59 Intake Total 1100 / 1100 1606 / 1606 Balance 1100 / 1100 1606 / 1606 Weight 85 kg Intake: IV 1100 / 1100 1606 / 1606 D5W + KCL 20 mEq Inj 1,000 ML @ 1000 / 1000 1000 / 1000 75 mls/hr IV.CONT .[id number] [facility] Rx#:[id number] Azithromycin Inj 500 MG In NS 250 / 250 Inj 250 ML @ 250 mls/hr IV.SIG Q24H [facility] Rx#:[id number] Maxipime Inj 1,000 MG In NS Inj 100 / 100 200 / 200 100 ML @ 200 mls/hr IV.SIG Q8H [facility] Rx#:[id number] Cerebyx Inj 125 MGPE In NS Inj 53 / 53 50 ML @ 210 mls/hr IV.SIG Q12H [facility] Rx#:[id number] Keppra Inj 250 MG In NS Inj 100 103 / 103 ML @ 400 mls/hr IV.SIG Q12H [facility] Rx#:[id number] Other: # Incontinent Voids 1 2 Date of Last Bowel Movement 03/17/18 03/17/18 03/17/18 # Incontinent Bowel Movements 1 2 Physical Exam: CONSTITUTIONAL/GENERAL: This is an elderly female resting in bed in no acute distress. TUBES/LINES/DRAINS: PIV, NC, bilateral SCDs. SKIN: No jaundice, rashes, or lesions. No wounds seen anteriorly. Skin temperature appropriate. Not diaphoretic. HEAD: Atraumatic. Normocephalic. EYES: Pupils equal and round and reactive. Extraocular motions intact. No scleral icterus. No injection or drainage. Fundi not examined. ENT: Hearing grossly normal. Nose without bleeding or purulent drainage. Moist oral mucosa. NECK: Trachea midline. Supple, nontender. CARDIOVASCULAR: Tachycardic with heart rate in the 100s. No murmurs, gallops, or rubs. RESPIRATORY/CHEST: Symmetric, unlabored respirations. Coarse breath sounds. O2 via nasal cannula. GASTROINTESTINAL: Abdomen soft, non-tender, nondistended. Bowel sounds present. Dressing to mid abdomen, site of PEG tube incision. GENITOURINARY: Without palpable bladder distension. MUSCULOSKELETAL: Extremities without clubbing, cyanosis, or edema. No mottling or clubbing. Foot drops bilaterally. Contracted right hand. NEUROLOGICAL: Awake and alert x self. Aphasic with slurred speech, difficult to communicate. Right-sided weakness. PSYCHIATRIC: Anxious/restless. Covering her face with blanket. Diagnostic Tests Laboratory: Laboratory Results - last 72 hr 03/15/18 03/15/18 03/16/18 12:43 17:32 05:29 WBC RBC Hgb Hct MCV MCH MCHC RDW Plt Count MPV Prelim Diff (Auto) Neut % (Auto) Lymph % (Auto) Cross % (Auto) Eos % (Auto) Baso % (Auto) Neut # (Auto) Lymph # (Auto) Cross # (Auto) Eos # (Auto) Baso # (Auto) WBC Differential Diff Scan Seg Neuts % (Manual) Band Neuts % (Manual) Lymphocytes % (Manual) Monocytes % (Manual) Eosinophils % (Manual) Basophils % (Manual) Metamyelocytes % (Man) Abs Neuts (Manual) Nucleated RBCs/100 WBC Differential Comment Toxic Granulation Platelet Estimate Platelet Morphology Ovalocytes PT INR Puncture Site Patient Temperature O2 Saturation ABG pH ABG pCO2 ABG pO2 ABG HCO3 ABG O2 Content ABG Base Excess ABG Methemoglobin Mello Test Hemoglobin Carboxyhemoglobin O2 Delivery Device Liter Flow Critical Value Sodium 163 H* Potassium 4.1 Chloride 133 H Carbon Dioxide 21.9 Anion Gap 8 BUN 28 H Creatinine 1.92 H Estimated GFR 31 L POC Glucose 175 H 158 H Random Glucose 114 H Calcium 7.8 L Magnesium 2.9 H Nasal Screen MRSA (PCR) Random Vancomycin 22.1 03/16/18 03/16/18 03/16/18 05:29 10:47 13:08 WBC 7.0 RBC 2.56 L Hgb 7.8 L Hct 24.3 L MCV 94.7 MCH 30.3 MCHC 31.9 L RDW 16.2 Plt Count 44 L MPV 11.8 H Prelim Diff (Auto) Slide review pending Neut % (Auto) 65.1 Lymph % (Auto) 21.4 Cross % (Auto) 9.4 H Eos % (Auto) 3.9 Baso % (Auto) 0.2 Neut # (Auto) 4.6 Lymph # (Auto) 1.5 Cross # (Auto) 0.7 Eos # (Auto) 0.3 Baso # (Auto) 0.0 WBC Differential . Diff Scan Auto diff confirmed Seg Neuts % (Manual) Band Neuts % (Manual) Lymphocytes % (Manual) Monocytes % (Manual) Eosinophils % (Manual) Basophils % (Manual) Metamyelocytes % (Man) Abs Neuts (Manual) Nucleated RBCs/100 WBC Differential Comment . Toxic Granulation Platelet Estimate Low L Platelet Morphology Enlarged H Ovalocytes PT INR Puncture Site Patient Temperature O2 Saturation ABG pH ABG pCO2 ABG pO2 ABG HCO3 ABG O2 Content ABG Base Excess ABG Methemoglobin Mello Test Hemoglobin Carboxyhemoglobin O2 Delivery Device Liter Flow Critical Value Sodium Potassium Chloride Carbon Dioxide Anion Gap BUN Creatinine Estimated GFR POC Glucose 122 H 119 H Random Glucose Calcium Magnesium Nasal Screen MRSA (PCR) Random Vancomycin 03/16/18 03/16/18 03/16/18 13:14 17:43 21:54 WBC RBC Hgb Hct MCV MCH MCHC RDW Plt Count MPV Prelim Diff (Auto) Neut % (Auto) Lymph % (Auto) Cross % (Auto) Eos % (Auto) Baso % (Auto) Neut # (Auto) Lymph # (Auto) Cross # (Auto) Eos # (Auto) Baso # (Auto) WBC Differential Diff Scan Seg Neuts % (Manual) Band Neuts % (Manual) Lymphocytes % (Manual) Monocytes % (Manual) Eosinophils % (Manual) Basophils % (Manual) Metamyelocytes % (Man) Abs Neuts (Manual) Nucleated RBCs/100 WBC Differential Comment Toxic Granulation Platelet Estimate Platelet Morphology Ovalocytes PT 13.5 H INR 1.3 Puncture Site Patient Temperature O2 Saturation ABG pH ABG pCO2 ABG pO2 ABG HCO3 ABG O2 Content ABG Base Excess ABG Methemoglobin Mello Test Hemoglobin Carboxyhemoglobin O2 Delivery Device Liter Flow Critical Value Sodium Potassium Chloride Carbon Dioxide Anion Gap BUN Creatinine Estimated GFR POC Glucose 130 H 111 H Random Glucose Calcium Magnesium Nasal Screen MRSA (PCR) Random Vancomycin 03/17/18 03/17/18 03/17/18 03:08 05:54 05:54 WBC 5.3 RBC 2.61 L Hgb 7.8 L Hct 24.5 L MCV 93.8 MCH 30.0 MCHC 32.0 RDW 15.7 Plt Count 54 L MPV 11.6 H Prelim Diff (Auto) Manual diff required Neut % (Auto) Lymph % (Auto) Cross % (Auto) Eos % (Auto) Baso % (Auto) Neut # (Auto) Lymph # (Auto) Cross # (Auto) Eos # (Auto) Baso # (Auto) WBC Differential Manual diff final Diff Scan Seg Neuts % (Manual) 65 Band Neuts % (Manual) 5 Lymphocytes % (Manual) 20 Monocytes % (Manual) 7 Eosinophils % (Manual) 2 Basophils % (Manual) Metamyelocytes % (Man) 1 Abs Neuts (Manual) 3.8 Nucleated RBCs/100 WBC 1 H Differential Comment . Toxic Granulation 2+ H Platelet Estimate Low L Platelet Morphology Enlarged H Ovalocytes 1+ H PT 13.1 H INR 1.3 Puncture Site Patient Temperature O2 Saturation ABG pH ABG pCO2 ABG pO2 ABG HCO3 ABG O2 Content ABG Base Excess ABG Methemoglobin Mello Test Hemoglobin Carboxyhemoglobin O2 Delivery Device Liter Flow Critical Value Sodium Potassium Chloride Carbon Dioxide Anion Gap BUN Creatinine Estimated GFR POC Glucose 120 H Random Glucose Calcium Magnesium Nasal Screen MRSA (PCR) Random Vancomycin 03/17/18 03/17/18 03/17/18 05:54 08:33 12:14 WBC RBC Hgb Hct MCV MCH MCHC RDW Plt Count MPV Prelim Diff (Auto) Neut % (Auto) Lymph % (Auto) Cross % (Auto) Eos % (Auto) Baso % (Auto) Neut # (Auto) Lymph # (Auto) Cross # (Auto) Eos # (Auto) Baso # (Auto) WBC Differential Diff Scan Seg Neuts % (Manual) Band Neuts % (Manual) Lymphocytes % (Manual) Monocytes % (Manual) Eosinophils % (Manual) Basophils % (Manual) Metamyelocytes % (Man) Abs Neuts (Manual) Nucleated RBCs/100 WBC Differential Comment Toxic Granulation Platelet Estimate Platelet Morphology Ovalocytes PT INR Puncture Site Patient Temperature O2 Saturation ABG pH ABG pCO2 ABG pO2 ABG HCO3 ABG O2 Content ABG Base Excess ABG Methemoglobin Mello Test Hemoglobin Carboxyhemoglobin O2 Delivery Device Liter Flow Critical Value Sodium 160 H* Potassium 4.0 Chloride 130 H Carbon Dioxide 21.8 Anion Gap 8 BUN 23 H Creatinine 1.59 H Estimated GFR 39 L POC Glucose 118 H 130 H Random Glucose 107 H Calcium 8.2 L Magnesium 2.7 H Nasal Screen MRSA (PCR) Random Vancomycin 03/17/18 03/17/18 03/17/18 14:35 15:05 16:01 WBC RBC Hgb Hct MCV MCH MCHC RDW Plt Count MPV Prelim Diff (Auto) Neut % (Auto) Lymph % (Auto) Cross % (Auto) Eos % (Auto) Baso % (Auto) Neut # (Auto) Lymph # (Auto) Cross # (Auto) Eos # (Auto) Baso # (Auto) WBC Differential Diff Scan Seg Neuts % (Manual) Band Neuts % (Manual) Lymphocytes % (Manual) Monocytes % (Manual) Eosinophils % (Manual) Basophils % (Manual) Metamyelocytes % (Man) Abs Neuts (Manual) Nucleated RBCs/100 WBC Differential Comment Toxic Granulation Platelet Estimate Platelet Morphology Ovalocytes PT INR Puncture Site Left brachial Patient Temperature 98.6 O2 Saturation 93 ABG pH 7.42 ABG pCO2 32 L ABG pO2 76 ABG HCO3 20 L ABG O2 Content 11.1 L ABG Base Excess -3.3 L ABG Methemoglobin 1.6 Mello Test Present Hemoglobin 8.4 L Carboxyhemoglobin 1.5 O2 Delivery Device Nasal cannula Liter Flow 2.00 Critical Value No Sodium Potassium Chloride Carbon Dioxide Anion Gap BUN Creatinine Estimated GFR POC Glucose 95 Random Glucose Calcium Magnesium Nasal Screen MRSA (PCR) Not detected Random Vancomycin 03/17/18 03/18/18 03/18/18 22:08 03:34 04:25 WBC 6.7 RBC 2.72 L Hgb 8.3 L Hct 25.8 L MCV 94.8 MCH 30.4 MCHC 32.1 RDW 15.4 Plt Count 78 L D MPV 12.0 H Prelim Diff (Auto) Manual diff required Neut % (Auto) Lymph % (Auto) Cross % (Auto) Eos % (Auto) Baso % (Auto) Neut # (Auto) Lymph # (Auto) Cross # (Auto) Eos # (Auto) Baso # (Auto) WBC Differential Manual diff final Diff Scan Seg Neuts % (Manual) 52 Band Neuts % (Manual) 12 H Lymphocytes % (Manual) 23 Monocytes % (Manual) 8 Eosinophils % (Manual) 3 Basophils % (Manual) 1 Metamyelocytes % (Man) 1 Abs Neuts (Manual) 4.4 Nucleated RBCs/100 WBC 2 H Differential Comment . Toxic Granulation Platelet Estimate Low L Platelet Morphology Normal Ovalocytes PT INR Puncture Site Patient Temperature O2 Saturation ABG pH ABG pCO2 ABG pO2 ABG HCO3 ABG O2 Content ABG Base Excess ABG Methemoglobin Mello Test Hemoglobin Carboxyhemoglobin O2 Delivery Device Liter Flow Critical Value Sodium Potassium Chloride Carbon Dioxide Anion Gap BUN Creatinine Estimated GFR POC Glucose 103 110 Random Glucose Calcium Magnesium Nasal Screen MRSA (PCR) Random Vancomycin 03/18/18 03/18/18 04:25 04:25 WBC RBC Hgb Hct MCV MCH MCHC RDW Plt Count MPV Prelim Diff (Auto) Neut % (Auto) Lymph % (Auto) Cross % (Auto) Eos % (Auto) Baso % (Auto) Neut # (Auto) Lymph # (Auto) Cross # (Auto) Eos # (Auto) Baso # (Auto) WBC Differential Diff Scan Seg Neuts % (Manual) Band Neuts % (Manual) Lymphocytes % (Manual) Monocytes % (Manual) Eosinophils % (Manual) Basophils % (Manual) Metamyelocytes % (Man) Abs Neuts (Manual) Nucleated RBCs/100 WBC Differential Comment Toxic Granulation Platelet Estimate Platelet Morphology Ovalocytes PT 13.4 H INR 1.3 Puncture Site Patient Temperature O2 Saturation ABG pH ABG pCO2 ABG pO2 ABG HCO3 ABG O2 Content ABG Base Excess ABG Methemoglobin Mello Test Hemoglobin Carboxyhemoglobin O2 Delivery Device Liter Flow Critical Value Sodium 156 H* Potassium 4.2 Chloride 128 H Carbon Dioxide 22.4 Anion Gap 6 BUN 16 Creatinine 1.38 H Estimated GFR 46 L POC Glucose Random Glucose 93 Calcium 7.9 L Magnesium 2.4 Nasal Screen MRSA (PCR) Random Vancomycin 12.3 Result Diagrams: 03/18/18 04:25 03/18/18 04:25 Microbiology: Microbiology 03/16/18 18:00 Stool Occult Blood (ZIGGY) - Final Stool Hemoccult negative 03/11/18 23:26 Aerobic Blood Culture - Final Blood - Peripheral No growth in 5 days Anaerobic Blood Culture - Final No growth in 5 days 03/11/18 23:26 Aerobic Blood Culture - Final Blood - Peripheral No growth in 5 days Anaerobic Blood Culture - Final No growth in 5 days Assessment and Plan - Disease Oriented Problem List (1) PEG (percutaneous endoscopic gastrostomy) adjustment/replacement/removal (2) Healthcare-associated pneumonia (3) Severe sepsis (4) Acute hypernatremia (5) Dehydration (6) Acute renal failure (7) Physical deconditioning (8) Bedbound - Symptom Scale (1) Pain after cerebrovascular accident (CVA) 0-10 Scale: 0 (2) Dyspnea 0-10 Scale: 0 Pertinent Non-Medical Issues: Psychosocial: Patient is a long-term resident of [facility] since 2009. . She has 3 adult children. Spiritual: Islam vik. Legal: Power of remote operations producer completed. Ethical issues impacting care: No ethical issues identified. Important Contacts: Daughter Cat Childress , , Son Todd Childress Son Herrera Childress [phone] Prognosis: Ms. Childress is a 72-year-old female with medical history significant for CVA secondary to intracranial aneurysm, bedbound, hypertension, atrial fibrillation on Coumadin, seizures, COPD, GERD, schizophrenia, dementia and hyperlipidemia. Patient is well-known to palliative care services from prior hospitalizations. She presented to ED on 03/11/18, she was found to be severely hypernatremic, septic and on acute kidney failure. Patient is totally bedbound and dependent on others for care, resident [facility] multiple prior hospitalizations in 2017 and 2018. She remains at a very high risk for further complications, continued decline and given multiple comorbidities, profound physical deconditioning, acute events and advanced age. Code Status: Full Code Plan: * CODE STATUS: Full code. Risks, benefits and limitations of CPR, intubation and mechanical ventilation were discussed with patient's daughter Cat on 03/17. * HEALTHCARE DECISION-MAKING: Patient unable to participating medical decision making secondary to clinical condition. History of stroke with aphasia, dementia and a schizoaffective disorder. Not likely to regain medical decision- making capacity. Power of remote operations producer completed by does not include healthcare decision making. Patient is and has 3 adult children. As per [place] statute, healthcare proxy decision making falls to the majority of patient's children for which she has 3: Cat, Herrera and Rasta. Son Herrera currently incarcerated. * GOALS OF CARE: As per patient's daughter Cat, goals of treatment remain aggressive to include FULL code and peg tube replacement. Patient known to palliative care services during multiple prior hospitalizations, goals of treatment have remained aggressive. Hospice philosophy and services previously discussed with family on multiple occasions, it has been declined. * SYMPTOMS: = Dyspnea: Improving. Patient currently tolerating O2 via nasal cannula 3 L. Pending transfer to medical floor under hospitalist services. = Dysphagia: Secondary to stroke. PEG tube feeding, pulled out PEG tube during this admission. GI following, plan to replace. =Debility: Progressive. Patient is a long-term resident secondary to CVA. She is totally bedbound and dependent for all others for care. Right-sided hemiparesis and aphasia. Right upper extremity is contracted. Likely to continue to worsen given clinical condition. = Restlessness/anxiety. Exacerbated by clinical condition in the setting of sepsis, hyponatremia. * Palliative care contact information has been provided to patient's daughter Cat. * Case discussed with bedside RN Soto. * Palliative care will continue to follow-up for further clarifications of goals of care as patient's clinical course continues to evolve. Time Spent Total Floor Time (mins): 27 (Total time to include review of medical records, physical exam, telephone conversation with patient's daughter, case discussion with bedside RN.) >50% Time in Counseling or Coordination of Care: Yes (Total visit time = 27 minutes; > 50% spent counseling/coordinating care) Attestation Attestation: To help prompt me to consider important information that might be impacting today's encounter and assessment, information from prior notes written by myself or my colleagues may have been "brought forward" into today's note. My signature on this note, however, is an attestation that I personally performed the exam, history, and/or decision-making noted today, and, unless otherwise indicated, the interactions with patient, family, and staff as well as the review of records all occurred today. I also attest that the listed assessment and stated plan reflect my best clinical judgment today based on the combination of historical information, prior notes, and today's exam/ interactions. When time spent is documented, it refers only to time spent today by the signer, or if indicated, combined time spent today by collaborating physician/nurse practitioner.
--- NOTE | 2018-03-18 12:31 | P.DIET ---
Nutritional Evaluation Type of nutrition evaluation: follow-up Nutrition consult regarding: Tube Feeding Screening comments: 03/12 TF review Objective - Diagnosis sepsis, pneumonia - Objective % IBW: 134 (IBW = 135lb) Body Weight Used for Calculations: Actual Energy Needs - Lower Range (kCal/kg): 25 Energy Needs - Upper Range (kCal/kg): 30 Lower Limit kCal/kg (kCals): 2,060 Upper Limit kCal/kg (kCals): 2,472 Lower Limit Protein Factor (Grams per Kg): 1.1 Upper Limit Protein Factor (Grams per Kg): 1.3 Lower Protein Needs (Protein): 91 Upper Protein Needs (Protein): 107 Dietitian Reviewed in Medical Record: Current diet, Curent medications, Intake & Output, Labs, Medical history, Tube feeding Diet Order: NPO, TF Objective Comments: PMH: CKD, CVA, dysphagia, failure to thrive, GERD, CHF, HTN, hypokalemia, IBS, schizoaffective disorder, vascular dementia Labs: Na 156, Cr 1.38, GFR 46, Ca+ 7.9 Assessment Assessment: Pts TF'ing on hold because pt pulled out her own PEG before PEG replacement on the same day per MD note. When pt is able to resume TF, continue Nepro 1.8 @ 50mL/hr to best meet pts nutritional needs. Monitor pts PEG placement status and wt changes. CBW = 82.4. Labs reviewed, dietitian following. Recommendations: 1. When pt is able to resume TF, continue Nepro 1.8 @ 50mL/hr to best meet pts nutritional needs 2. Monitor pts PEG placement status and wt changes 3. Dietitian following Dietitian to Monitor: Lab values, Renal labs, Intake & Output, Tube feeding tolerance, Medical course
--- NOTE | 2018-03-18 14:12 | P.PNGI ---
Subjective Interval history: Pt is resting in bed, face covered with sheets, uncovered her face to me calling her name, still with very strong cough <Monserrat Browne - Last Filed: 03/18/18 14:03> Physical Exam Vital signs: Vital Signs 03/17/18 14:20 03/17/18 15:58 03/17/18 16:00 Temperature 98.6 F Pulse Rate 110 H 113 H Respiratory Rate 48 H 42 H Blood Pressure Pulse Oximetry 100 100 100 03/17/18 16:01 03/17/18 16:16 03/17/18 17:00 Temperature Pulse Rate 112 H 112 H 109 H Respiratory Rate 47 H 41 H 21 Blood Pressure 159/72 H Pulse Oximetry 97 100 03/17/18 17:01 03/17/18 18:01 03/17/18 18:22 Temperature Pulse Rate 107 H 106 H 110 H Respiratory Rate 47 H 53 H 34 H Blood Pressure 100/58 L 128/60 158/74 H Pulse Oximetry 100 100 97 03/17/18 18:40 03/17/18 19:00 03/17/18 19:01 Temperature Pulse Rate 101 H 100 H 103 H Respiratory Rate 36 H 40 H 35 H Blood Pressure 122/69 184/79 H Pulse Oximetry 100 100 100 03/17/18 19:21 03/17/18 19:40 03/17/18 20:00 Temperature 98.3 F Pulse Rate 98 H 99 H 99 H Respiratory Rate 20 31 H 30 H Blood Pressure 145/67 H 129/77 121/76 Pulse Oximetry 100 100 100 03/17/18 20:21 03/17/18 20:36 03/17/18 21:00 Temperature Pulse Rate 101 H 103 H 102 H Respiratory Rate 31 H 42 H 22 Blood Pressure 131/102 H 177/70 H Pulse Oximetry 100 100 100 03/17/18 21:01 03/17/18 22:00 03/17/18 22:43 Temperature Pulse Rate 103 H 108 H 101 H Respiratory Rate 32 H 28 H 27 H Blood Pressure 158/70 H 142/61 H Pulse Oximetry 100 100 03/17/18 22:46 03/17/18 23:00 03/18/18 00:00 Temperature 98.1 F Pulse Rate 117 H 109 H Respiratory Rate 45 H 30 H Blood Pressure 157/69 H 158/94 H Pulse Oximetry 100 100 100 03/18/18 00:13 03/18/18 01:00 03/18/18 01:01 Temperature Pulse Rate 105 H 105 H Respiratory Rate 33 H 34 H Blood Pressure 141/58 H Pulse Oximetry 100 100 100 03/18/18 02:00 03/18/18 03:00 03/18/18 03:35 Temperature Pulse Rate 104 H 104 H Respiratory Rate 35 H 28 H Blood Pressure 134/61 124/58 L Pulse Oximetry 100 100 100 03/18/18 04:00 03/18/18 05:00 03/18/18 06:00 Temperature 98.8 F Pulse Rate 102 H 100 H 103 H Respiratory Rate 30 H 38 H 35 H Blood Pressure 143/61 H 159/68 H Pulse Oximetry 100 100 100 03/18/18 06:01 03/18/18 07:00 03/18/18 08:00 Temperature Pulse Rate 101 H 102 H 112 H Respiratory Rate 30 H 24 47 H Blood Pressure 137/63 129/59 L 121/84 Pulse Oximetry 99 100 100 03/18/18 09:00 03/18/18 10:00 Temperature Pulse Rate 105 H 103 H Respiratory Rate 36 H 32 H Blood Pressure 137/64 135/67 Pulse Oximetry 93 L 95 Intake & Output 03/17/18 03/18/18 03/18/18 18:59 06:59 18:59 Intake Total 1100 / 1100 1606 / 1606 Balance 1100 / 1100 1606 / 1606 Weight 85 kg Intake: IV 1100 / 1100 1606 / 1606 D5W + KCL 20 mEq Inj 1,000 ML @ 1000 / 1000 1000 / 1000 75 mls/hr IV.CONT .[id number] [facility] Rx#:[id number] Azithromycin Inj 500 MG In NS 250 / 250 Inj 250 ML @ 250 mls/hr IV.SIG Q24H [facility] Rx#:[id number] Maxipime Inj 1,000 MG In NS Inj 100 / 100 200 / 200 100 ML @ 200 mls/hr IV.SIG Q8H [facility] Rx#:[id number] Cerebyx Inj 125 MGPE In NS Inj 53 / 53 50 ML @ 210 mls/hr IV.SIG Q12H [facility] Rx#:[id number] Keppra Inj 250 MG In NS Inj 100 103 / 103 ML @ 400 mls/hr IV.SIG Q12H [facility] Rx#:[id number] Other: # Incontinent Voids 1 2 Date of Last Bowel Movement 03/17/18 03/17/18 03/17/18 # Incontinent Bowel Movements 1 2 Narrative: GENERAL: This is a ill appearing, in no apparent distress laying in bed. CARDIOVASCULAR: Regular rate and rhythm RESPIRATORY:coarse breath sounds bilaterally, and strong cough GASTROINTESTINAL: Abdomen soft, non-tender, nondistended. Normal active bowel sounds MUSCULOSKELETAL: Extremities without clubbing, cyanosis, or edema. NEURO: garbled speech, confused <Monserrat Browne - Last Filed: 03/18/18 14:03> Vital signs: Vital Signs 03/17/18 15:58 03/17/18 16:00 03/17/18 16:01 Temperature 98.6 F Pulse Rate 110 H 113 H 112 H Respiratory Rate 48 H 42 H 47 H Blood Pressure 159/72 H Pulse Oximetry 100 100 97 03/17/18 16:16 03/17/18 17:00 03/17/18 17:01 Temperature Pulse Rate 112 H 109 H 107 H Respiratory Rate 41 H 21 47 H Blood Pressure 100/58 L Pulse Oximetry 100 100 03/17/18 18:01 03/17/18 18:22 03/17/18 18:40 Temperature Pulse Rate 106 H 110 H 101 H Respiratory Rate 53 H 34 H 36 H Blood Pressure 128/60 158/74 H 122/69 Pulse Oximetry 100 97 100 03/17/18 19:00 03/17/18 19:01 03/17/18 19:21 Temperature Pulse Rate 100 H 103 H 98 H Respiratory Rate 40 H 35 H 20 Blood Pressure 184/79 H 145/67 H Pulse Oximetry 100 100 100 03/17/18 19:40 03/17/18 20:00 03/17/18 20:21 Temperature 98.3 F Pulse Rate 99 H 99 H 101 H Respiratory Rate 31 H 30 H 31 H Blood Pressure 129/77 121/76 131/102 H Pulse Oximetry 100 100 100 03/17/18 20:36 03/17/18 21:00 03/17/18 21:01 Temperature Pulse Rate 103 H 102 H 103 H Respiratory Rate 42 H 22 32 H Blood Pressure 177/70 H 158/70 H Pulse Oximetry 100 100 100 03/17/18 22:00 03/17/18 22:43 03/17/18 22:46 Temperature Pulse Rate 108 H 101 H Respiratory Rate 28 H 27 H Blood Pressure 142/61 H Pulse Oximetry 100 100 03/17/18 23:00 03/18/18 00:00 03/18/18 00:13 Temperature 98.1 F Pulse Rate 117 H 109 H Respiratory Rate 45 H 30 H Blood Pressure 157/69 H 158/94 H Pulse Oximetry 100 100 100 03/18/18 01:00 03/18/18 01:01 03/18/18 02:00 Temperature Pulse Rate 105 H 105 H 104 H Respiratory Rate 33 H 34 H 35 H Blood Pressure 141/58 H 134/61 Pulse Oximetry 100 100 100 03/18/18 03:00 03/18/18 03:35 03/18/18 04:00 Temperature 98.8 F Pulse Rate 104 H 102 H Respiratory Rate 28 H 30 H Blood Pressure 124/58 L 143/61 H Pulse Oximetry 100 100 100 03/18/18 05:00 03/18/18 06:00 03/18/18 06:01 Temperature Pulse Rate 100 H 103 H 101 H Respiratory Rate 38 H 35 H 30 H Blood Pressure 159/68 H 137/63 Pulse Oximetry 100 100 99 03/18/18 07:00 03/18/18 08:00 03/18/18 09:00 Temperature Pulse Rate 102 H 112 H 105 H Respiratory Rate 24 47 H 36 H Blood Pressure 129/59 L 121/84 137/64 Pulse Oximetry 100 100 93 L 03/18/18 10:00 Temperature Pulse Rate 103 H Respiratory Rate 32 H Blood Pressure 135/67 Pulse Oximetry 95 Intake & Output 03/17/18 03/18/18 03/18/18 18:59 06:59 18:59 Intake Total 1100 / 1100 1606 / 1606 Balance 1100 / 1100 1606 / 1606 Weight 85 kg Intake: IV 1100 / 1100 1606 / 1606 D5W + KCL 20 mEq Inj 1,000 ML @ 1000 / 1000 1000 / 1000 75 mls/hr IV.CONT .[id number] [facility] Rx#:[id number] Azithromycin Inj 500 MG In NS 250 / 250 Inj 250 ML @ 250 mls/hr IV.SIG Q24H [facility] Rx#:[id number] Maxipime Inj 1,000 MG In NS Inj 100 / 100 200 / 200 100 ML @ 200 mls/hr IV.SIG Q8H [facility] Rx#:[id number] Cerebyx Inj 125 MGPE In NS Inj 53 / 53 50 ML @ 210 mls/hr IV.SIG Q12H [facility] Rx#:[id number] Keppra Inj 250 MG In NS Inj 100 103 / 103 ML @ 400 mls/hr IV.SIG Q12H [facility] Rx#:[id number] Other: # Incontinent Voids 1 2 Date of Last Bowel Movement 03/17/18 03/17/18 03/17/18 # Incontinent Bowel Movements 1 2 <Adams Mejia A - Last Filed: 03/18/18 14:48> Results - Labs CBC & Chem 7: 03/18/18 04:25 03/18/18 04:25 Laboratory Results - last 24 hr 03/17/18 03/17/18 03/17/18 14:35 15:05 16:01 WBC RBC Hgb Hct MCV MCH MCHC RDW Plt Count MPV Prelim Diff (Auto) WBC Differential Seg Neuts % (Manual) Band Neuts % (Manual) Lymphocytes % (Manual) Monocytes % (Manual) Eosinophils % (Manual) Basophils % (Manual) Metamyelocytes % (Man) Abs Neuts (Manual) Nucleated RBCs/100 WBC Differential Comment Platelet Estimate Platelet Morphology PT INR Puncture Site Left brachial Patient Temperature 98.6 O2 Saturation 93 ABG pH 7.42 ABG pCO2 32 L ABG pO2 76 ABG HCO3 20 L ABG O2 Content 11.1 L ABG Base Excess -3.3 L ABG Methemoglobin 1.6 Mello Test Present Hemoglobin 8.4 L Carboxyhemoglobin 1.5 O2 Delivery Device Nasal cannula Liter Flow 2.00 Critical Value No Sodium Potassium Chloride Carbon Dioxide Anion Gap BUN Creatinine Estimated GFR POC Glucose 95 Random Glucose Calcium Magnesium Nasal Screen MRSA (PCR) Not detected Random Vancomycin 03/17/18 03/18/18 03/18/18 22:08 03:34 04:25 WBC 6.7 RBC 2.72 L Hgb 8.3 L Hct 25.8 L MCV 94.8 MCH 30.4 MCHC 32.1 RDW 15.4 Plt Count 78 L D MPV 12.0 H Prelim Diff (Auto) Manual diff required WBC Differential Manual diff final Seg Neuts % (Manual) 52 Band Neuts % (Manual) 12 H Lymphocytes % (Manual) 23 Monocytes % (Manual) 8 Eosinophils % (Manual) 3 Basophils % (Manual) 1 Metamyelocytes % (Man) 1 Abs Neuts (Manual) 4.4 Nucleated RBCs/100 WBC 2 H Differential Comment . Platelet Estimate Low L Platelet Morphology Normal PT INR Puncture Site Patient Temperature O2 Saturation ABG pH ABG pCO2 ABG pO2 ABG HCO3 ABG O2 Content ABG Base Excess ABG Methemoglobin Mello Test Hemoglobin Carboxyhemoglobin O2 Delivery Device Liter Flow Critical Value Sodium Potassium Chloride Carbon Dioxide Anion Gap BUN Creatinine Estimated GFR POC Glucose 103 110 Random Glucose Calcium Magnesium Nasal Screen MRSA (PCR) Random Vancomycin 03/18/18 03/18/18 04:25 04:25 WBC RBC Hgb Hct MCV MCH MCHC RDW Plt Count MPV Prelim Diff (Auto) WBC Differential Seg Neuts % (Manual) Band Neuts % (Manual) Lymphocytes % (Manual) Monocytes % (Manual) Eosinophils % (Manual) Basophils % (Manual) Metamyelocytes % (Man) Abs Neuts (Manual) Nucleated RBCs/100 WBC Differential Comment Platelet Estimate Platelet Morphology PT 13.4 H INR 1.3 Puncture Site Patient Temperature O2 Saturation ABG pH ABG pCO2 ABG pO2 ABG HCO3 ABG O2 Content ABG Base Excess ABG Methemoglobin Mello Test Hemoglobin Carboxyhemoglobin O2 Delivery Device Liter Flow Critical Value Sodium 156 H* Potassium 4.2 Chloride 128 H Carbon Dioxide 22.4 Anion Gap 6 BUN 16 Creatinine 1.38 H Estimated GFR 46 L POC Glucose Random Glucose 93 Calcium 7.9 L Magnesium 2.4 Nasal Screen MRSA (PCR) Random Vancomycin 12.3 - Imaging Impressions Chest X-Ray 03/17/18 13:45 CONCLUSION: Unchanged right lower lobe infiltrate. <Monserrat Browne - Last Filed: 03/18/18 14:03> - Labs CBC & Chem 7: 03/18/18 04:25 03/18/18 04:25 Laboratory Results - last 24 hr 03/17/18 03/17/18 03/17/18 15:05 16:01 22:08 WBC RBC Hgb Hct MCV MCH MCHC RDW Plt Count MPV Prelim Diff (Auto) WBC Differential Seg Neuts % (Manual) Band Neuts % (Manual) Lymphocytes % (Manual) Monocytes % (Manual) Eosinophils % (Manual) Basophils % (Manual) Metamyelocytes % (Man) Abs Neuts (Manual) Nucleated RBCs/100 WBC Differential Comment Platelet Estimate Platelet Morphology PT INR Sodium Potassium Chloride Carbon Dioxide Anion Gap BUN Creatinine Estimated GFR POC Glucose 95 103 Random Glucose Calcium Magnesium Nasal Screen MRSA (PCR) Not detected Random Vancomycin 03/18/18 03/18/18 03/18/18 03:34 04:25 04:25 WBC 6.7 RBC 2.72 L Hgb 8.3 L Hct 25.8 L MCV 94.8 MCH 30.4 MCHC 32.1 RDW 15.4 Plt Count 78 L D MPV 12.0 H Prelim Diff (Auto) Manual diff required WBC Differential Manual diff final Seg Neuts % (Manual) 52 Band Neuts % (Manual) 12 H Lymphocytes % (Manual) 23 Monocytes % (Manual) 8 Eosinophils % (Manual) 3 Basophils % (Manual) 1 Metamyelocytes % (Man) 1 Abs Neuts (Manual) 4.4 Nucleated RBCs/100 WBC 2 H Differential Comment . Platelet Estimate Low L Platelet Morphology Normal PT 13.4 H INR 1.3 Sodium Potassium Chloride Carbon Dioxide Anion Gap BUN Creatinine Estimated GFR POC Glucose 110 Random Glucose Calcium Magnesium Nasal Screen MRSA (PCR) Random Vancomycin 03/18/18 04:25 WBC RBC Hgb Hct MCV MCH MCHC RDW Plt Count MPV Prelim Diff (Auto) WBC Differential Seg Neuts % (Manual) Band Neuts % (Manual) Lymphocytes % (Manual) Monocytes % (Manual) Eosinophils % (Manual) Basophils % (Manual) Metamyelocytes % (Man) Abs Neuts (Manual) Nucleated RBCs/100 WBC Differential Comment Platelet Estimate Platelet Morphology PT INR Sodium 156 H* Potassium 4.2 Chloride 128 H Carbon Dioxide 22.4 Anion Gap 6 BUN 16 Creatinine 1.38 H Estimated GFR 46 L POC Glucose Random Glucose 93 Calcium 7.9 L Magnesium 2.4 Nasal Screen MRSA (PCR) Random Vancomycin 12.3 - Imaging Impressions Chest X-Ray 03/17/18 13:45 CONCLUSION: Unchanged right lower lobe infiltrate. <Adams Mejia - Last Filed: 03/18/18 14:48> Assessment and Plan (1) PEG (percutaneous endoscopic gastrostomy) adjustment/replacement/removal Status: Acute Code(s): Z43.1 - Encounter for attention to gastrostomy - Plan This patient is a 72-year-old female who [facility] Patient has a medical history significant for CVA with right-sided hemiparesis, seizure disorder, hypertension ,'s asthma, schizoaffective disorder, dementia and heart failure. Patient had previously been on Coumadin for CVA but medication has been held since admission with last confirmed dose being on 03/12/2018. Our service has been consulted to evaluate patient replacement of PEG tube. Patient pulled out PEG tube PEG tube noted to be 18 Alger[place] with 20 mL balloon. Site intact without drainage or bleeding noted. PEG tube placement This is on hold for now due to acute respiratory distress Pneumonia/ Dyspnea per CCm on abx Plan -N.p.o. - EGD/PEG once medically stable -Supportive care -Further recommendations to follow This patient has been seen by myself and Dr. Mejia and this note is written on his behalf <Monserrat Browne - Last Filed: 03/18/18 14:03> (1) PEG (percutaneous endoscopic gastrostomy) adjustment/replacement/removal Status: Acute Code(s): Z43.1 - Encounter for attention to gastrostomy - Attending Attestation PEG placement postponed secondary to her overall condition. Will schedule tube placement when more stable. <Adams Mejia - Last Filed: 03/18/18 14:48>
[2018-03-18] MEDS: Ferrous Sulfate 325 MG Tablet PO SCH ×3 (14:37→18:32)
[2018-03-18] MEDS: Insulin NovoLOG Aspart Correctional Sugar Inj SQ SCH ×3 (14:37→21:28)
[2018-03-18] MEDS: Senna/Docusate Sodium 8.6/50 MG Tablet PO SCH ×2 (14:38→21:29)
[2018-03-18] MEDS: Potassium Chloride 25 MEQ Effervescent Tablet PO SCH ×2 (14:38→21:28)
[2018-03-18] MEDS: Lansoprazole ODT 15 MG Tablet NG/OG SCH (14:39)
[2018-03-18] MEDS: FOSPHENYTOIN IV.SIG SCH ×2 (15:48→23:28)
[2018-03-18] MEDS: SODIUM CHLOR IV.SIG SCH ×2 (15:48→23:28)
[2018-03-18] MEDS: Mirtazapine 15 MG Tablet PO SCH (21:29)
[2018-03-19] MEDS: LEVETIRACETAM IV.SIG SCH ×2 (00:16→13:00)
[2018-03-19] MEDS: SODIUM CHLOR 0.9% IV.SIG SCH ×2 (00:16→13:00)
[2018-03-19] MEDS: Azithromycin Inj 500 MG in Sodium Chlor 0.9% Inj 250 ML IV.SIG SCH (00:34)
[2018-03-19 05:51] LABS: Baso % (Auto) 0.3 % (0.0-2.0); Eos # (Auto) 0.3 th/mm3 (0.0-0.4); Eos % (Auto) 4.5 % (0.0-4.0); Hematocrit 24.5 % (35.0-46.0); Lymph # (Auto) 1.7 th/mm3 (1.0-4.8); Lymph % (Auto) 27.3 % (9.0-44.0); Mean Corpuscular HGB Conc 32.6 % (32.0-36.0); Mean Corpuscular Hemoglobin 30.7 pg (27.0-34.0); Mean Corpuscular Volume 94.1 fL (80.0-100.0); Mean Platelet Volume 10.7 fL (7.0-11.0); Mono # (Auto) 0.6 th/mm3 (0.0-0.9); Mono % (Auto) 9.2 % (0.0-8.0); Neut # (Auto) 3.7 th/mm3 (1.8-7.7); Neut % (Auto) 58.7 % (16.0-70.0); Platelet Count 90 th/mm3 (150-450); Red Cell Distribution Width 15.5 % (11.6-17.2); White Blood Count 6.4 th/mm3 (4.0-11.0)
[2018-03-19 05:56] LABS: INR 1.3 Ratio; Prothrombin Time 13.2 sec (9.8-11.6)
[2018-03-19 06:13] LABS: Albumin 1.6 g/dL (3.4-5.0); Anion Gap 8 meq/L (5-15); Aspartate Aminotransferase 49 U/L (15-37); Blood Urea Nitrogen 11 mg/dL (7-18); Calcium 7.8 mg/dL (8.5-10.1); Carbon Dioxide 21.4 meq/L (21.0-32.0); Chloride 124 meq/L (98-107); Glomerular Filtration Rate 54 mL/min (>89); Glucose,Random 90 mg/dL (74-106); Potassium 4.2 meq/L (3.5-5.1); Sodium 153 meq/L (136-145)
[2018-03-19 06:19] LABS: Alanine Aminotransferase 43 U/L (10-53); Alkaline Phosphatase 125 U/L (45-117); Total Protein 6.4 g/dL (6.4-8.2)
[2018-03-19] MEDS: KCL 20 mEq/Dextrose 5% Inj 1,000 ML IV.CONT SCH ×2 (07:00→19:58)
--- NOTE | 2018-03-19 08:16 | P.PNIM ---
Subjective Interval history: Discussed with nursing No overnight events, no shortness of breath, patient still refuses to follow commands, refuses to eat and take medications. She also removes her oxygen. Physical Exam Vital signs: Vital Signs 03/18/18 09:00 03/18/18 10:00 03/18/18 11:00 Temperature Pulse Rate 105 H 103 H 99 H Respiratory Rate 36 H 32 H 28 H Blood Pressure 137/64 135/67 138/63 Pulse Oximetry 93 L 95 97 03/18/18 12:00 03/18/18 13:00 03/18/18 14:00 Temperature Pulse Rate 104 H 110 H 105 H Respiratory Rate 35 H 41 H 27 H Blood Pressure 133/85 142/70 H Pulse Oximetry 96 97 100 03/18/18 14:01 03/18/18 15:00 03/18/18 16:00 Temperature Pulse Rate 104 H 110 H 103 H Respiratory Rate 29 H 39 H 35 H Blood Pressure 125/62 133/80 150/93 H Pulse Oximetry 100 99 100 03/18/18 17:00 03/18/18 17:01 03/18/18 18:00 Temperature Pulse Rate 102 H 106 H 104 H Respiratory Rate 27 H 28 H 38 H Blood Pressure 127/64 Pulse Oximetry 96 100 93 L 03/18/18 18:01 03/18/18 19:00 03/18/18 20:00 Temperature 98.2 F Pulse Rate 107 H 101 H 107 H Respiratory Rate 57 H 41 H 32 H Blood Pressure 148/72 H 144/77 H 151/71 H Pulse Oximetry 88 L 71 L 75 L 03/18/18 21:00 03/18/18 21:01 03/18/18 22:00 Temperature Pulse Rate 104 H 104 H 102 H Respiratory Rate 35 H 60 H 19 Blood Pressure 149/82 H 148/65 H Pulse Oximetry 100 100 100 03/18/18 23:00 03/18/18 23:01 03/18/18 23:46 Temperature Pulse Rate 100 H 101 H 100 H Respiratory Rate 21 22 17 Blood Pressure 144/65 H Pulse Oximetry 100 100 100 03/19/18 00:00 03/19/18 00:01 03/19/18 01:00 Temperature Pulse Rate 104 H 106 H 101 H Respiratory Rate 31 H 36 H 37 H Blood Pressure 135/84 135/84 Pulse Oximetry 100 100 100 03/19/18 01:21 03/19/18 02:00 03/19/18 03:00 Temperature Pulse Rate 101 H 100 H 99 H Respiratory Rate 51 H 39 H 40 H Blood Pressure 99/68 L 95/71 L Pulse Oximetry 100 100 100 03/19/18 03:01 03/19/18 03:31 03/19/18 04:00 Temperature Pulse Rate 100 H 103 H Respiratory Rate 38 H 33 H Blood Pressure 165/99 H 138/98 H Pulse Oximetry 100 100 100 03/19/18 06:00 03/19/18 07:49 Temperature Pulse Rate 106 H 110 H Respiratory Rate 16 Blood Pressure Pulse Oximetry 96 Intake & Output 03/18/18 03/19/18 03/19/18 18:59 06:59 18:59 Intake Total 1770.0 / 1770.0 605.0 / 605.0 Output Total 200 / 200 Balance 1770.0 / 1770.0 405.0 / 405.0 Weight 86 kg Intake: IV 1770.0 / 1770.0 605.0 / 605.0 D5W + KCL 20 mEq Inj 1,000 ML @ 1000 / 1000 75 mls/hr IV.CONT .[id number] [facility] Rx#:[id number] Azithromycin Inj 500 MG In NS 250 / 250 Inj 250 ML @ 250 mls/hr IV.SIG Q24H [facility] Rx#:[id number] Maxipime Inj 1,000 MG In NS Inj 100 / 100 200 / 200 100 ML @ 200 mls/hr IV.SIG Q8H [facility] Rx#:[id number] Cerebyx Inj 125 MGPE In NS Inj 52.5 / 52.5 52.5 / 52.5 50 ML @ 210 mls/hr IV.SIG Q12H [facility] Rx#:[id number] Vancomycin Inj 1,500 MG In NS 515 / 515 Inj 500 ML @ 250 mls/hr IV.SIG ONCE ONE Rx#:[id number] Keppra Inj 250 MG In NS Inj 100 102.5 / 102.5 ML @ 400 mls/hr IV.SIG Q12H [facility] Rx#:[id number] Keppra Inj 250 MG In NS Inj 100 102.5 / 102.5 ML @ 400 mls/hr IV.SIG Q12H [facility] Rx#:[id number] Oral 0 / 0 Output: Urine 200 / 200 Other: # Voids 3 # Incontinent Voids 5 Date of Last Bowel Movement 03/17/18 03/19/18 # Bowel Movements 1 # Incontinent Bowel Movements 2 Narrative: GEN: Chronically ill, frail-appearing elderly female, not very cooperative. CARDIO: Regular rate and rhythm, no murmurs appreciated. PULM: Coarse breath sounds bilaterally, strong cough, poor effort. EXT/MSK: Trace peripheral edema NEURO: Awake, alert, oriented to person but not place or time, follows some commands, answers most questions appropriately. Hemiplegic on right side. Speech garbled but coherent. Results - Labs CBC & Chem 7: 03/19/18 05:13 03/19/18 05:13 Laboratory Results - last 24 hr 03/18/18 03/19/18 03/19/18 17:26 04:09 05:13 WBC RBC Hgb Hct MCV MCH MCHC RDW Plt Count MPV Prelim Diff (Auto) Neut % (Auto) Lymph % (Auto) Garden % (Auto) Eos % (Auto) Baso % (Auto) Neut # (Auto) Lymph # (Auto) [place] # (Auto) Eos # (Auto) Baso # (Auto) Differential Comment PT 13.2 H INR 1.3 Sodium Potassium Chloride Carbon Dioxide Anion Gap BUN Creatinine Estimated GFR POC Glucose 97 101 Random Glucose Calcium Magnesium Total Bilirubin AST ALT Alkaline Phosphatase Total Protein Albumin 03/19/18 03/19/18 05:13 05:13 WBC 6.4 RBC 2.60 L Hgb 8.0 L Hct 24.5 L MCV 94.1 MCH 30.7 MCHC 32.6 RDW 15.5 Plt Count 90 L MPV 10.7 Prelim Diff (Auto) Slide review pending Neut % (Auto) 58.7 Lymph % (Auto) 27.3 Garden % (Auto) 9.2 H Eos % (Auto) 4.5 H Baso % (Auto) 0.3 Neut # (Auto) 3.7 Lymph # (Auto) 1.7 Garden # (Auto) 0.6 Eos # (Auto) 0.3 Baso # (Auto) 0.0 Differential Comment . PT INR Sodium 153 H Potassium 4.2 Chloride 124 H Carbon Dioxide 21.4 Anion Gap 8 BUN 11 Creatinine 1.20 H Estimated GFR 54 L POC Glucose Random Glucose 90 Calcium 7.8 L Magnesium 2.0 Total Bilirubin 0.7 AST 49 H ALT 43 Alkaline Phosphatase 125 H Total Protein 6.4 Albumin 1.6 L Assessment and Plan - Assessment (1) Severe sepsis Code(s): A41.9 - Sepsis, unspecified organism; R65.20 - Severe sepsis without septic shock Status: Acute (2) Healthcare-associated pneumonia Code(s): J18.9 - Pneumonia, unspecified organism Status: Acute (3) Acute hypernatremia Code(s): E87.0 - Hyperosmolality and hypernatremia Status: Acute - Plan This is a 72-year-old female admitted for pneumonia Healthcare associated pneumonia -Cefepime, azithromycin, vancomycin (03/13--), vancomycin levels adequate. Switch cefepime to cefuroxime when taking PO or PEG tube is in, continube ABx, duoNebs, chest x-ray stable. Abx end-date 03/23. Hyponatremia-resolving, continue D5W. Acute kidney injury-Improving, stable, Monitor urine output, Avoid nephrotoxic agents, recheck BMP tomorrow. Dysphagia-Will need PEG replacement once more stable, she pulled them out. GI following. Anemia, Thrombocytopenia -Iron supplement, Thrombocytopenia likely secondary to sepsis, heme following, improving. Abdominal US ordered, limited exam but no specific abnormalities noted. Improving. Seizure disorder -Continue keppra and dilantin Dyslipidemia -Pravastatin Hypertension-Can begin restarting home antihypertensives when patient has enteral access, recommend restarting metoprolol first, currently blood pressure has been fluctuating and relatively stable. Hydralazine as needed. History of left MCA CVA -Coumadin currently on hold due to thrombocytopenia and need for replacement PEG History of dementia -Delirium precautions (lights on/ shades up during the day, limit nighttime disruptions, frequent reorientation, avoid deliriogenic meds, avoid constipation / urinary retention) DVT GI prophylaxis -Teds SCDs -Pepcid Discharge to rehab after PEG tube placement. Transfer to [facility]
[2018-03-19 08:41] LABS: Eosinophils 1 % (0-4); Lymphocytes 16 % (9-44); Monocytes 6 % (0-8); Ovalocytes 1+; Platelet Morphology Normal (Normal)
[2018-03-19] MEDS: SODIUM CHLOR IV.SIG SCH ×2 (12:00→22:41)
[2018-03-19] MEDS: FOSPHENYTOIN IV.SIG SCH ×2 (12:00→22:41)
[2018-03-19] MEDS: Insulin NovoLOG Aspart Correctional Sugar Inj SQ SCH ×4 (12:45→20:33)
[2018-03-19] MEDS: Ferrous Sulfate 325 MG Tablet PO SCH ×3 (12:46→18:10)
[2018-03-19] MEDS: Potassium Chloride 25 MEQ Effervescent Tablet PO SCH ×2 (12:46→20:00)
[2018-03-19] MEDS: Lansoprazole ODT 15 MG Tablet NG/OG SCH (12:47)
[2018-03-19] MEDS: Senna/Docusate Sodium 8.6/50 MG Tablet PO SCH ×2 (12:47→20:00)
[2018-03-19] MEDS: Mirtazapine 15 MG Tablet PO SCH (20:01)
[2018-03-20] MEDS: LEVETIRACETAM IV.SIG SCH ×3 (00:12→23:51)
[2018-03-20] MEDS: SODIUM CHLOR 0.9% IV.SIG SCH ×3 (00:12→23:51)
[2018-03-20] MEDS: Azithromycin Inj 500 MG in Sodium Chlor 0.9% Inj 250 ML IV.SIG SCH (00:42)
[2018-03-20 04:32] LABS: INR 1.3 Ratio; Prothrombin Time 13.6 sec (9.8-11.6)
[2018-03-20 04:49] LABS: Calcium 7.7 mg/dL (8.5-10.1); Carbon Dioxide 21.7 meq/L (21.0-32.0); Potassium 3.8 meq/L (3.5-5.1)
--- NOTE | 2018-03-20 09:02 | P.PNIM ---
Subjective Interval history: Follow-up for shortness of breath Shortness of breath almost resolved, still has occasional cough but mostly on room air. Awaiting for PEG tube placement. Following some commands. Physical Exam Vital signs: Vital Signs 03/19/18 09:00 03/19/18 10:00 03/19/18 11:00 Temperature Pulse Rate 113 H 116 H 110 H Respiratory Rate 23 32 H 40 H Blood Pressure 132/63 144/64 H 131/65 Pulse Oximetry 100 100 100 03/19/18 12:00 03/19/18 13:00 03/19/18 14:00 Temperature Pulse Rate 106 H 108 H 106 H Respiratory Rate 15 23 17 Blood Pressure 148/67 H 133/75 Pulse Oximetry 100 100 100 03/19/18 14:01 03/19/18 15:00 03/19/18 16:00 Temperature Pulse Rate 112 H 104 H 112 H Respiratory Rate 22 29 H 41 H Blood Pressure 158/80 H 148/71 H 146/68 H Pulse Oximetry 100 100 100 03/19/18 17:00 03/19/18 17:12 03/19/18 18:00 Temperature Pulse Rate 106 H 114 H 114 H Respiratory Rate 27 H 22 29 H Blood Pressure 145/70 H 135/63 Pulse Oximetry 100 100 03/19/18 19:00 03/19/18 19:58 03/19/18 20:00 Temperature 97.6 F Pulse Rate 109 H 108 H Respiratory Rate 25 H 23 Blood Pressure 146/68 H 140/65 Pulse Oximetry 100 99 97 03/19/18 21:00 03/19/18 22:00 03/19/18 23:00 Temperature Pulse Rate 108 H 112 H 112 H Respiratory Rate 26 H 29 H 30 H Blood Pressure 135/65 127/67 137/65 Pulse Oximetry 87 L 96 99 03/20/18 00:00 03/20/18 01:00 03/20/18 02:00 Temperature Pulse Rate 114 H 117 H 112 H Respiratory Rate 30 H 39 H 29 H Blood Pressure 150/70 H 172/75 H 147/66 H Pulse Oximetry 100 100 100 03/20/18 03:00 03/20/18 04:00 03/20/18 05:00 Temperature Pulse Rate 113 H 109 H 117 H Respiratory Rate 37 H 35 H 39 H Blood Pressure 143/67 H 148/69 H 154/111 H Pulse Oximetry 100 100 100 03/20/18 05:27 03/20/18 06:00 03/20/18 07:26 Temperature Pulse Rate 109 H 113 H Respiratory Rate 40 H 47 H Blood Pressure 136/63 154/69 H Pulse Oximetry 94 L 100 100 Intake & Output 03/19/18 03/20/18 03/20/18 18:59 06:59 18:59 Intake Total 1255.0 / 1255.0 1605.0 / 1605.0 Output Total 900 / 900 400 / 400 Balance 355.0 / 355.0 1205.0 / 1205.0 Weight 86.5 kg Intake: IV 1255.0 / 1255.0 1605.0 / 1605.0 D5W + KCL 20 mEq Inj 1,000 ML @ 1000 / 1000 1000 / 1000 75 mls/hr IV.CONT .[id number] [facility] Rx#:[id number] Azithromycin Inj 500 MG In NS 250 / 250 Inj 250 ML @ 250 mls/hr IV.SIG Q24H [facility] Rx#:[id number] Maxipime Inj 1,000 MG In NS Inj 100 / 100 200 / 200 100 ML @ 200 mls/hr IV.SIG Q8H [facility] Rx#:[id number] Cerebyx Inj 125 MGPE In NS Inj 52.5 / 52.5 52.5 / 52.5 50 ML @ 210 mls/hr IV.SIG Q12H [facility] Rx#:[id number] Keppra Inj 250 MG In NS Inj 100 102.5 / 102.5 102.5 / 102.5 ML @ 400 mls/hr IV.SIG Q12H [facility] Rx#:[id number] Output: Urine 900 / 900 400 / 400 Other: # Incontinent Voids 5 Date of Last Bowel Movement 03/17/18 03/20/18 Narrative: GEN: Chronically ill, frail-appearing elderly female CARDIO: Regular rate and rhythm, no murmurs appreciated. PULM: Coarse breath sounds bilaterally, strong cough, poor effort. EXT/MSK: Trace peripheral edema NEURO: Awake, alert, oriented to person but not place or time, follows some commands, answers most questions appropriately. Hemiplegic on right side. Speech garbled but coherent. Results - Labs CBC & Chem 7: 03/19/18 05:13 03/20/18 03:44 Laboratory Results - last 24 hr 03/19/18 03/19/18 03/20/18 16:33 20:03 03:29 PT INR Sodium Potassium Chloride Carbon Dioxide Anion Gap BUN Creatinine Estimated GFR POC Glucose 89 88 83 Random Glucose Calcium Random Vancomycin 03/20/18 03/20/18 03:44 03:44 PT 13.6 H INR 1.3 Sodium 151 H Potassium 3.8 Chloride 121 H Carbon Dioxide 21.7 Anion Gap 8 BUN 8 Creatinine 1.23 H Estimated GFR 52 L POC Glucose Random Glucose 85 Calcium 7.7 L Random Vancomycin 19.0 Assessment and Plan - Assessment (1) Severe sepsis Code(s): A41.9 - Sepsis, unspecified organism; R65.20 - Severe sepsis without septic shock Status: Acute (2) Healthcare-associated pneumonia Code(s): J18.9 - Pneumonia, unspecified organism Status: Acute (3) Acute hypernatremia Code(s): E87.0 - Hyperosmolality and hypernatremia Status: Acute - Plan This is a 72-year-old female admitted for pneumonia Healthcare associated pneumonia -Cefepime, azithromycin, vancomycin (03/13--), vancomycin levels adequate. Switch cefepime to cefuroxime when taking PO or PEG tube is in, continube ABx, duoNebs, chest x-ray stable. Abx end-date around 03/23. Hyponatremia-resolving, continue D5W. Acute kidney injury-Improving, stable, Monitor urine output, Avoid nephrotoxic agents, almost at baseline which is normal, continue D5W, recheck BMP tomorrow Dysphagia-Will need PEG replacement once more stable, she pulled them out. GI following, will discuss with GI today. Anemia, Thrombocytopenia -Iron supplement, Thrombocytopenia likely secondary to sepsis, heme following, improving. Abdominal US ordered, limited exam but no specific abnormalities noted. Improving. Seizure disorder -Continue keppra and dilantin, switch to PO once PEG in Dyslipidemia -Pravastatin Hypertension-Can begin restarting home antihypertensives when patient has enteral access, recommend restarting metoprolol first, currently blood pressure has been fluctuating and relatively stable. Hydralazine as needed. History of left MCA CVA -Coumadin currently on hold due to thrombocytopenia and need for replacement PEG History of dementia -Delirium precautions (lights on/ shades up during the day, limit nighttime disruptions, frequent reorientation, avoid deliriogenic meds, avoid constipation / urinary retention), MS at baseline DVT GI prophylaxis -Teds SCDs -Pepcid Discharge to rehab after PEG tube placement. Transfer to [facility] once PEG in, [facility] nurse might be overwhelmed by too many IVs and she can't miss them.
[2018-03-20] MEDS: Ferrous Sulfate 325 MG Tablet PO SCH ×2 (09:10→17:00)
[2018-03-20] MEDS: Potassium Chloride 25 MEQ Effervescent Tablet PO SCH ×2 (09:10→22:15)
[2018-03-20] MEDS: Senna/Docusate Sodium 8.6/50 MG Tablet PO SCH ×2 (09:12→22:16)
[2018-03-20] MEDS: Lansoprazole ODT 15 MG Tablet NG/OG SCH (09:12)
--- NOTE | 2018-03-20 09:38 | P.PNONC ---
Subjective Interval history: Resting comfortably in bed. No distress. Objective Vital Signs/Intake & Output: Vital Signs 03/19/18 10:00 03/19/18 11:00 03/19/18 12:00 Temperature Pulse Rate 116 H 110 H 106 H Respiratory Rate 32 H 40 H 15 Blood Pressure 144/64 H 131/65 148/67 H Pulse Oximetry 100 100 100 03/19/18 13:00 03/19/18 14:00 03/19/18 14:01 Temperature Pulse Rate 108 H 106 H 112 H Respiratory Rate 23 17 22 Blood Pressure 133/75 158/80 H Pulse Oximetry 100 100 100 03/19/18 15:00 03/19/18 16:00 03/19/18 17:00 Temperature Pulse Rate 104 H 112 H 106 H Respiratory Rate 29 H 41 H 27 H Blood Pressure 148/71 H 146/68 H 145/70 H Pulse Oximetry 100 100 100 03/19/18 17:12 03/19/18 18:00 03/19/18 19:00 Temperature Pulse Rate 114 H 114 H 109 H Respiratory Rate 22 29 H 25 H Blood Pressure 135/63 146/68 H Pulse Oximetry 100 100 03/19/18 19:58 03/19/18 20:00 03/19/18 21:00 Temperature 97.6 F Pulse Rate 108 H 108 H Respiratory Rate 23 26 H Blood Pressure 140/65 135/65 Pulse Oximetry 99 97 87 L 03/19/18 22:00 03/19/18 23:00 03/20/18 00:00 Temperature Pulse Rate 112 H 112 H 114 H Respiratory Rate 29 H 30 H 30 H Blood Pressure 127/67 137/65 150/70 H Pulse Oximetry 96 99 100 03/20/18 01:00 03/20/18 02:00 03/20/18 03:00 Temperature Pulse Rate 117 H 112 H 113 H Respiratory Rate 39 H 29 H 37 H Blood Pressure 172/75 H 147/66 H 143/67 H Pulse Oximetry 100 100 100 03/20/18 04:00 03/20/18 05:00 03/20/18 05:27 Temperature Pulse Rate 109 H 117 H 109 H Respiratory Rate 35 H 39 H 40 H Blood Pressure 148/69 H 154/111 H 136/63 Pulse Oximetry 100 100 94 L 03/20/18 06:00 03/20/18 07:26 Temperature Pulse Rate 113 H Respiratory Rate 47 H Blood Pressure 154/69 H Pulse Oximetry 100 100 Intake & Output 03/19/18 03/20/18 03/20/18 18:59 06:59 18:59 Intake Total 1255.0 / 1255.0 1605.0 / 1605.0 Output Total 900 / 900 400 / 400 Balance 355.0 / 355.0 1205.0 / 1205.0 Weight 86.5 kg Intake: IV 1255.0 / 1255.0 1605.0 / 1605.0 D5W + KCL 20 mEq Inj 1,000 ML @ 1000 / 1000 1000 / 1000 75 mls/hr IV.CONT .[id number] [facility] Rx#:[id number] Azithromycin Inj 500 MG In NS 250 / 250 Inj 250 ML @ 250 mls/hr IV.SIG Q24H [facility] Rx#:[id number] Maxipime Inj 1,000 MG In NS Inj 100 / 100 200 / 200 100 ML @ 200 mls/hr IV.SIG Q8H [facility] Rx#:[id number] Cerebyx Inj 125 MGPE In NS Inj 52.5 / 52.5 52.5 / 52.5 50 ML @ 210 mls/hr IV.SIG Q12H [facility] Rx#:[id number] Keppra Inj 250 MG In NS Inj 100 102.5 / 102.5 102.5 / 102.5 ML @ 400 mls/hr IV.SIG Q12H [facility] Rx#:[id number] Output: Urine 900 / 900 400 / 400 Other: # Incontinent Voids 5 Date of Last Bowel Movement 03/17/18 03/20/18 Result Diagrams: 03/19/18 05:13 03/20/18 03:44 Laboratory Results: Laboratory Results - last 24 hr 03/19/18 03/19/18 03/20/18 16:33 20:03 03:29 PT INR Sodium Potassium Chloride Carbon Dioxide Anion Gap BUN Creatinine Estimated GFR POC Glucose 89 88 83 Random Glucose Calcium Random Vancomycin 03/20/18 03/20/18 03:44 03:44 PT 13.6 H INR 1.3 Sodium 151 H Potassium 3.8 Chloride 121 H Carbon Dioxide 21.7 Anion Gap 8 BUN 8 Creatinine 1.23 H Estimated GFR 52 L POC Glucose Random Glucose 85 Calcium 7.7 L Random Vancomycin 19.0 Medications: Active Medications Generic Name Dose Route Start Last Admin Trade Name Freq PRN Reason Stop Dose Admin Albuterol 1 ampul 03/12/18 00:53 03/19/18 17:11 Duoneb Neb (Prn) NEB 1 ampul Q2HR NEB PRN Administration SHORTNESS OF BREATH/WHEEZING Ferrous Sulfate 325 mg 03/12/18 09:00 03/20/18 09:10 Ferosul PO Not Given TID [facility] Potassium Chloride/Dextrose 1,000 mls @ 100 mls/hr 03/13/18 11:00 03/19/18 19 :58 D5w + Kcl 20 Meq Inj IV.CONT 75 mls/hr .Q10H [facility] Administration Cefepime HCl 1,000 mg/ Sodium 100 mls @ 200 mls/hr 03/14/18 14:00 03/20/18 06 :22 Chloride IV.SIG Infused Q8H [facility] Infusion Azithromycin 500 mg/ Sodium 250 mls @ 250 mls/hr 03/15/18 01:00 03/20/18 01: 54 Chloride IV.SIG Infused Q24H [facility] Infusion Fosphenytoin Sodium 125 mgpe/ 52.5 mls @ 210 mls/hr 03/17/18 23:00 03/20/18 00:34 Sodium Chloride IV.SIG Infused Q12H [facility] Infusion Levetiracetam 250 mg/ Sodium 102.5 mls @ 400 mls/hr 03/19/18 00:00 03/20/18 00:34 Chloride IV.SIG Infused Q12H [facility] Infusion Insulin Aspart 0 unit 03/13/18 12:00 03/19/18 20:33 Novolog Insulin Correctional Sugar Inj SQ Not Given ACHS [facility] Protocol Lansoprazole 15 mg 03/14/18 15:00 03/20/18 09:12 Prevacid Solutab NG/OG Not Given DAILY [facility] Mirtazapine 7.5 mg 03/16/18 21:00 03/19/18 20:01 Remeron PO Not Given HS [facility] Potassium Bicarb/Potassium Chloride 25 meq 03/13/18 13:00 03/20/18 09:10 K-Lyte Cl Eff PO Not Given BID [facility] Pravastatin Sodium 20 mg 03/12/18 09:00 03/20/18 09:12 Pravachol PO Not Given BID [facility] Senna/Docusate Sodium 1 tab 03/12/18 09:00 03/20/18 09:12 Whitney-Colace PO Not Given BID [facility] Sodium Chloride 2 ml 03/12/18 09:00 03/20/18 09:10 Ns Flush IV.FLUSH 2 ml BID [facility] Administration Triamcinolone Acetonide 1 applicatio 03/12/18 09:00 03/20/18 09:10 Aristocort 0.1% Cream TOPICAL Not Given BID [facility] Objective Remarks: GENERAL: chronically ill appearing patinet SKIN: Warm and dry. LYMPHATIC: No adenopathy. CARDIOVASCULAR: tachycardic RESPIRATORY: No accessory muscle use. MUSCULOSKELETAL: Adequate muscle tone. NEUROLOGICAL: residual deficit Psych: hisotyr of stroke Assessment/Plan - Plan 1. Thrombocytopenia: No evidence of DIC, TMA. No exposure to heparin. Nutritional studies replete. Likely secondary to infection, antibiotic therapy. continue to trend CBC. Platelet count uptrending
--- NOTE | 2018-03-20 09:47 | P.DIET ---
Nutritional Evaluation Type of nutrition evaluation: follow-up Nutrition consult regarding: Tube Feeding Screening comments: 03/12 TF review 03/18 NPO x3 days Subjective Subjective Comments: Pt pulled out her own PEG before PEG replacement on the same day 03/18. Objective - Diagnosis sepsis, pneumonia - Objective % IBW: 134 (IBW = 135lb) Body Weight Used for Calculations: Actual Energy Needs - Lower Range (kCal/kg): 25 Energy Needs - Upper Range (kCal/kg): 30 Lower Limit kCal/kg (kCals): 2,060 Upper Limit kCal/kg (kCals): 2,472 Lower Limit Protein Factor (Grams per Kg): 1.1 Upper Limit Protein Factor (Grams per Kg): 1.3 Lower Protein Needs (Protein): 91 Upper Protein Needs (Protein): 107 Dietitian Reviewed in Medical Record: Current diet, Curent medications, Intake & Output, Labs, Medical history, Tube feeding Diet Order: NPO Objective Comments: PMH: CKD, CVA, dysphagia, failure to thrive, GERD, CHF, HTN, hypokalemia, IBS, schizoaffective disorder, vascular dementia Labs: Cr 1.23, BUN 52, Ca+ 7.7 Assessment Assessment: Pt NPO x3 days on 03/18. Pts TF'ing continues to be on hold d/t pending PEG placement. Per MD note, pt will transfer to [facility] once PEG is in and will probably d/c to rehab after placement. When pt is able to resume TF, continue Nepro 1.8 @ 50mL/hr to best meet pts nutritional needs. Monitor pts PEG placement status and wt changes. Monitor NPO status. CBW = 86.5. Labs reviewed, dietitian following. Recommendations: 1. When pt is able to resume TF, continue Nepro 1.8 @ 50mL/hr to best meet pts nutritional needs 2. Monitor pts PEG placement status and wt changes 3. Monitor NPO status 4. Dietitian following Dietitian to Monitor: Lab values, Renal labs, Intake & Output, Tube feeding tolerance, Medical course
[2018-03-20] MEDS: SODIUM CHLOR IV.SIG SCH ×2 (11:00→23:25)
[2018-03-20] MEDS: FOSPHENYTOIN IV.SIG SCH ×2 (11:00→23:25)
--- NOTE | 2018-03-20 11:34 | P.PNGI ---
Subjective Interval history: Patient sitting up in bed Awake and alert Vital signs stable sinus tach 107 ,98% on room air, BP 155/71, 26 RR Planned PEG placement today Call placed to Todd Childress and Cat Childress-message left <Isi Koenig - Last Filed: 03/20/18 11:28> Physical Exam Vital signs: Vital Signs 03/19/18 12:00 03/19/18 13:00 03/19/18 14:00 Temperature Pulse Rate 106 H 108 H 106 H Respiratory Rate 15 23 17 Blood Pressure 148/67 H 133/75 Pulse Oximetry 100 100 100 03/19/18 14:01 03/19/18 15:00 03/19/18 16:00 Temperature Pulse Rate 112 H 104 H 112 H Respiratory Rate 22 29 H 41 H Blood Pressure 158/80 H 148/71 H 146/68 H Pulse Oximetry 100 100 100 03/19/18 17:00 03/19/18 17:12 03/19/18 18:00 Temperature Pulse Rate 106 H 114 H 114 H Respiratory Rate 27 H 22 29 H Blood Pressure 145/70 H 135/63 Pulse Oximetry 100 100 03/19/18 19:00 03/19/18 19:58 03/19/18 20:00 Temperature 97.6 F Pulse Rate 109 H 108 H Respiratory Rate 25 H 23 Blood Pressure 146/68 H 140/65 Pulse Oximetry 100 99 97 03/19/18 21:00 03/19/18 22:00 03/19/18 23:00 Temperature Pulse Rate 108 H 112 H 112 H Respiratory Rate 26 H 29 H 30 H Blood Pressure 135/65 127/67 137/65 Pulse Oximetry 87 L 96 99 03/20/18 00:00 03/20/18 01:00 03/20/18 02:00 Temperature Pulse Rate 114 H 117 H 112 H Respiratory Rate 30 H 39 H 29 H Blood Pressure 150/70 H 172/75 H 147/66 H Pulse Oximetry 100 100 100 03/20/18 03:00 03/20/18 04:00 03/20/18 05:00 Temperature Pulse Rate 113 H 109 H 117 H Respiratory Rate 37 H 35 H 39 H Blood Pressure 143/67 H 148/69 H 154/111 H Pulse Oximetry 100 100 100 03/20/18 05:27 03/20/18 06:00 03/20/18 07:26 Temperature Pulse Rate 109 H 113 H Respiratory Rate 40 H 47 H Blood Pressure 136/63 154/69 H Pulse Oximetry 94 L 100 100 Intake & Output 03/19/18 03/20/18 03/20/18 18:59 06:59 18:59 Intake Total 1255.0 / 1255.0 1605.0 / 1605.0 Output Total 900 / 900 400 / 400 Balance 355.0 / 355.0 1205.0 / 1205.0 Weight 86.5 kg Intake: IV 1255.0 / 1255.0 1605.0 / 1605.0 D5W + KCL 20 mEq Inj 1,000 ML @ 1000 / 1000 1000 / 1000 75 mls/hr IV.CONT .[id number] [facility] Rx#:[id number] Azithromycin Inj 500 MG In NS 250 / 250 Inj 250 ML @ 250 mls/hr IV.SIG Q24H [facility] Rx#:[id number] Maxipime Inj 1,000 MG In NS Inj 100 / 100 200 / 200 100 ML @ 200 mls/hr IV.SIG Q8H [facility] Rx#:[id number] Cerebyx Inj 125 MGPE In NS Inj 52.5 / 52.5 52.5 / 52.5 50 ML @ 210 mls/hr IV.SIG Q12H [facility] Rx#:[id number] Keppra Inj 250 MG In NS Inj 100 102.5 / 102.5 102.5 / 102.5 ML @ 400 mls/hr IV.SIG Q12H [facility] Rx#:[id number] Output: Urine 900 / 900 400 / 400 Other: # Incontinent Voids 5 Date of Last Bowel Movement 03/17/18 03/20/18 - Constitutional no acute distress, chronically ill appearing - Routine HEENT Exam Head: Present: normocephalic - Routine Respiratory Exam Present: CTA bilaterally - Routine Cardiovascular Exam Present: RRR - Routine Abdominal Exam Present: soft, normoactive bowel sounds. Absent: tenderness, guarding, firm - Routine Extremities Exam Present: pulses intact - Routine Skin Exam Present: dry, warm - Routine Neurological Exam Present: alert, altered mental status <Koenig,Isi - Last Filed: 03/20/18 11:28> Vital signs: Vital Signs 03/19/18 14:00 03/19/18 14:01 03/19/18 15:00 Temperature Pulse Rate 106 H 112 H 104 H Respiratory Rate 17 22 29 H Blood Pressure 158/80 H 148/71 H Pulse Oximetry 100 100 100 03/19/18 16:00 03/19/18 17:00 03/19/18 17:12 Temperature Pulse Rate 112 H 106 H 114 H Respiratory Rate 41 H 27 H 22 Blood Pressure 146/68 H 145/70 H Pulse Oximetry 100 100 03/19/18 18:00 03/19/18 19:00 03/19/18 19:58 Temperature Pulse Rate 114 H 109 H Respiratory Rate 29 H 25 H Blood Pressure 135/63 146/68 H Pulse Oximetry 100 100 99 03/19/18 20:00 03/19/18 21:00 03/19/18 22:00 Temperature 97.6 F Pulse Rate 108 H 108 H 112 H Respiratory Rate 23 26 H 29 H Blood Pressure 140/65 135/65 127/67 Pulse Oximetry 97 87 L 96 03/19/18 23:00 03/20/18 00:00 03/20/18 01:00 Temperature Pulse Rate 112 H 114 H 117 H Respiratory Rate 30 H 30 H 39 H Blood Pressure 137/65 150/70 H 172/75 H Pulse Oximetry 99 100 100 03/20/18 02:00 03/20/18 03:00 03/20/18 04:00 Temperature Pulse Rate 112 H 113 H 109 H Respiratory Rate 29 H 37 H 35 H Blood Pressure 147/66 H 143/67 H 148/69 H Pulse Oximetry 100 100 100 03/20/18 05:00 03/20/18 05:27 03/20/18 06:00 Temperature Pulse Rate 117 H 109 H 113 H Respiratory Rate 39 H 40 H 47 H Blood Pressure 154/111 H 136/63 154/69 H Pulse Oximetry 100 94 L 100 03/20/18 07:00 03/20/18 07:26 03/20/18 08:00 Temperature Pulse Rate 115 H 110 H Respiratory Rate 34 H 29 H Blood Pressure 144/70 H 144/69 H Pulse Oximetry 100 100 100 03/20/18 09:00 03/20/18 10:00 03/20/18 11:00 Temperature Pulse Rate 113 H 115 H 111 H Respiratory Rate 39 H 37 H 42 H Blood Pressure 144/66 H 155/71 H 143/64 H Pulse Oximetry 100 100 98 03/20/18 12:00 Temperature Pulse Rate 113 H Respiratory Rate 37 H Blood Pressure 145/68 H Pulse Oximetry 100 Intake & Output 03/19/18 03/20/18 03/20/18 18:59 06:59 18:59 Intake Total 1255.0 / 1255.0 1605.0 / 1605.0 1000 / 1000 Output Total 900 / 900 400 / 400 Balance 355.0 / 355.0 1205.0 / 1205.0 1000 / 1000 Weight 86.5 kg Intake: IV 1255.0 / 1255.0 1605.0 / 1605.0 1000 / 1000 D5W + KCL 20 mEq Inj 1,000 ML @ 1000 / 1000 1000 / 1000 1000 / 1000 100 mls/hr IV.CONT .Q10H [facility] Rx#:[id number] Azithromycin Inj 500 MG In NS 250 / 250 Inj 250 ML @ 250 mls/hr IV.SIG Q24H [facility] Rx#:[id number] Maxipime Inj 1,000 MG In NS Inj 100 / 100 200 / 200 100 ML @ 200 mls/hr IV.SIG Q8H [facility] Rx#:[id number] Cerebyx Inj 125 MGPE In NS Inj 52.5 / 52.5 52.5 / 52.5 50 ML @ 210 mls/hr IV.SIG Q12H [facility] Rx#:[id number] Keppra Inj 250 MG In NS Inj 100 102.5 / 102.5 102.5 / 102.5 ML @ 400 mls/hr IV.SIG Q12H [facility] Rx#:[id number] Output: Urine 900 / 900 400 / 400 Other: # Incontinent Voids 5 Date of Last Bowel Movement 03/17/18 03/20/18 03/17/18 <Adams Mejia A - Last Filed: 03/20/18 13:15> Results - Labs CBC & Chem 7: 03/19/18 05:13 03/20/18 03:44 Laboratory Results - last 24 hr 03/19/18 03/19/18 03/20/18 16:33 20:03 03:29 PT INR Sodium Potassium Chloride Carbon Dioxide Anion Gap BUN Creatinine Estimated GFR POC Glucose 89 88 83 Random Glucose Calcium Random Vancomycin 03/20/18 03/20/18 03:44 03:44 PT 13.6 H INR 1.3 Sodium 151 H Potassium 3.8 Chloride 121 H Carbon Dioxide 21.7 Anion Gap 8 BUN 8 Creatinine 1.23 H Estimated GFR 52 L POC Glucose Random Glucose 85 Calcium 7.7 L Random Vancomycin 19.0 <Isi Koenig - Last Filed: 03/20/18 11:28> - Labs CBC & Chem 7: 03/19/18 05:13 03/20/18 03:44 Laboratory Results - last 24 hr 03/19/18 03/19/18 03/20/18 16:33 20:03 03:29 PT INR Sodium Potassium Chloride Carbon Dioxide Anion Gap BUN Creatinine Estimated GFR POC Glucose 89 88 83 Random Glucose Calcium Random Vancomycin 03/20/18 03/20/18 03:44 03:44 PT 13.6 H INR 1.3 Sodium 151 H Potassium 3.8 Chloride 121 H Carbon Dioxide 21.7 Anion Gap 8 BUN 8 Creatinine 1.23 H Estimated GFR 52 L POC Glucose Random Glucose 85 Calcium 7.7 L Random Vancomycin 19.0 <Adams Mejia - Last Filed: 03/20/18 13:15> Assessment and Plan (1) PEG (percutaneous endoscopic gastrostomy) adjustment/replacement/removal Status: Acute Code(s): Z43.1 - Encounter for attention to gastrostomy - Plan This patient is a 72-year-old female who [facility] Patient has a medical history significant for CVA with right-sided hemiparesis, seizure disorder, hypertension ,'s asthma, schizoaffective disorder, dementia and heart failure. Patient had previously been on Coumadin for CVA but medication has been held since admission with last confirmed dose being on 03/12/2018. Our service has been consulted to evaluate patient replacement of PEG tube. Patient pulled out PEG tube PEG tube noted to be 18 [place] with 20 mL balloon. Site intact without drainage or bleeding noted. PEG tube placement This is on hold for now due to acute respiratory distress Pneumonia/ Dyspnea per CCm on abx 03/20/2018 PEG placement Patient awake alert confused. Vital signs stable-sinus tach 107, 98% saturation on room air, BP 155/71, 27 RR 03/19/2018 hemoglobin 8.0 hematocrit 25.4 platelet count 90 INR 1.3 Plan -N.p.o. -Obtain for PEG tube placement -Dietitian consult noted for tube feeding -Supportive care -Further recommendations to follow This patient has been seen by myself and Dr. Mejia and this note is written on his behalf - Attending Attestation Dr. Mejia <Isi Koenig - Last Filed: 03/20/18 11:28> (1) PEG (percutaneous endoscopic gastrostomy) adjustment/replacement/removal Status: Acute Code(s): Z43.1 - Encounter for attention to gastrostomy - Attending Attestation Agree with above assessment and plan. Will obtain consent for PEG placement and schedule it in AM. <Adams Mejia - Last Filed: 03/20/18 13:15>
[2018-03-20] MEDS: Insulin NovoLOG Aspart Correctional Sugar Inj SQ SCH ×4 (12:08→22:15)
[2018-03-20] MEDS: KCL 20 mEq/Dextrose 5% Inj 1,000 ML IV.CONT SCH (12:11)
--- NOTE | 2018-03-20 16:07 | GIPROC ---
[facility] [address] [facility]. [facility], [address] PEG PROCEDURE REPORT EXAM DATE: 03/20/2018 PATIENT NAME: Florence Childress MR#: [id number] BIRTHDATE: 1945 ATTENDING: Adams Mejia MD ORDER #: [id number] [employer] SOFTWARE ENGINEER: Jany Bates and Sterling Mora STATUS: inpatient INDICATIONS: The patient is a 72 yr old female here for an EGD with PEG due to PEG Placement PROCEDURE PERFORMED: Peg Placement MEDICATIONS: Per Anesthesia and None. TOPICAL ANESTHETIC: none CONSENT: The patient understands the risks and benefits of the procedure and understands that these risks include, but are not limited to: sedation, allergic reaction, infection, perforation and/or bleeding. Alternative means of evaluation and treatment include, among others: physical exam, x-rays, and/or surgical intervention. The patient elects to proceed with this endoscopic procedure. medical equipment was checked for proper function. Hand hygiene and appropriate measures for infection prevention was taken. After the risks, benefits and alternatives of the procedure were thoroughly explained, Informed consent was verified, confirmed and timeout was successfully executed by the treatment team. The patient was anesthetized with topical anesthesia and the Pentax [id number] endoscope was introduced through the mouth and advanced to the Extent of Exam. The instrument was slowly withdrawn as the mucosa was fully examined. The stomach was then inflated with air, and by a combination of transillumination and manual palpation, the site for the gastrostomy tube placement was selected and marked on the anterior abdominal wall. The skin of the anterior abdomen was surgically prepped and draped with sterile towels. Utilizing strict sterile technique, the selected site was then anesthetized with 1% xylocaine by injection into the skin and subcutaneous tissue. A 1 cm incision was made through the skin and subcutaneous tissue, and the needle/cannula assembly was then passed through the abdominal wall and through the anterior wall of the stomach, maintaining visualization with the endoscope. A snare device previously placed through the instrument channel was then opened and placed around the cannula, the needle was removed, and the insertion wire was passed through the cannula and into the stomach lumen. The snare was then loosened from the cannula, and repositioned to snare the insertion wire. The snare was then pulled up to the endoscope distal tip, and the scope was then withdrawn bringing with it the snare and insertion wire. The insertion wire was then released from the snare, and then loop-attached to the Bard 22 Fr gastrostomy tube. Using the "pull technique", the G-tube was then pulled into place by traction on the insertion wire at the abdominal wall end. The G-tube insertion site was then cleansed once again, and the external bolster was placed over the tube to secure it to the abdominal wall. A sterile dressing was then applied, and the procedure terminated. The gastroscope was then slowly withdrawn and removed. ADVERSE EVENT: There were no complications. 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
[2018-03-20] MEDS: Morphine Sulfate Inj 2 MG/ML Vial IV.PUSH PRN ×2 (17:45→21:59)
[2018-03-20] MEDS: Mirtazapine 15 MG Tablet PO SCH (22:16)
[2018-03-21] MEDS: Azithromycin Inj 500 MG in Sodium Chlor 0.9% Inj 250 ML IV.SIG SCH (00:35)
[2018-03-21] MEDS: KCL 20 mEq/Dextrose 5% Inj 1,000 ML IV.CONT SCH ×4 (01:44→16:57)
[2018-03-21 05:47] LABS: Calcium 7.6 mg/dL (8.5-10.1); Carbon Dioxide 20.7 meq/L (21.0-32.0); Potassium 3.9 meq/L (3.5-5.1)
[2018-03-21 05:49] LABS: Vancomycin,Random 13.5 Comment
[2018-03-21 06:25] LABS: INR 1.4 Ratio; Prothrombin Time 13.9 sec (9.8-11.6)
[2018-03-21] MEDS: Lansoprazole ODT 15 MG Tablet NG/OG SCH (09:15)
[2018-03-21] MEDS: Ferrous Sulfate 325 MG Tablet PO SCH ×4 (09:15→16:59)
[2018-03-21] MEDS: Potassium Chloride 25 MEQ Effervescent Tablet PO SCH ×2 (09:16→21:53)
[2018-03-21] MEDS: Insulin NovoLOG Aspart Correctional Sugar Inj SQ SCH ×4 (09:24→21:53)
[2018-03-21] MEDS: Senna/Docusate Sodium 8.6/50 MG Tablet PO SCH ×2 (09:24→21:53)
--- NOTE | 2018-03-21 09:38 | P.PNIM ---
Subjective Interval history: Placement of PEG tube pending. Patient has no acute complaints. No further evidence of infection. Physical Exam Vital signs: Vital Signs 03/20/18 10:00 03/20/18 11:00 03/20/18 12:00 Temperature Pulse Rate 115 H 111 H 113 H Respiratory Rate 37 H 42 H 37 H Blood Pressure 155/71 H 143/64 H 145/68 H Pulse Oximetry 100 98 100 03/20/18 13:00 03/20/18 14:00 03/20/18 15:00 Temperature Pulse Rate 112 H 110 H 112 H Respiratory Rate 38 H 37 H 33 H Blood Pressure 155/65 H 144/68 H Pulse Oximetry 95 97 97 03/20/18 15:01 03/20/18 16:26 03/20/18 16:27 Temperature Pulse Rate 116 H 118 H 118 H Respiratory Rate 40 H 37 H 29 H Blood Pressure 149/76 H 143/66 H Pulse Oximetry 87 L 92 L 93 L 03/20/18 17:00 03/20/18 18:00 03/20/18 19:00 Temperature Pulse Rate 120 H 116 H 120 H Respiratory Rate 39 H 38 H 40 H Blood Pressure 163/72 H 161/75 H 111/76 Pulse Oximetry 98 100 03/20/18 20:00 03/20/18 21:00 03/20/18 22:00 Temperature 98 F Pulse Rate 120 H 117 H 124 H Respiratory Rate 38 H 37 H 41 H Blood Pressure 160/95 H 138/59 L 147/64 H Pulse Oximetry 97 97 95 03/20/18 22:16 03/20/18 23:00 03/21/18 00:00 Temperature Pulse Rate 128 H 122 H Respiratory Rate 26 H 31 H 31 H Blood Pressure 149/65 H 145/66 H Pulse Oximetry 96 96 03/21/18 01:00 03/21/18 02:00 03/21/18 02:03 Temperature Pulse Rate 124 H 124 H 121 H Respiratory Rate 34 H 39 H 42 H Blood Pressure 125/58 L 143/101 H 135/60 Pulse Oximetry 95 95 97 03/21/18 03:00 03/21/18 04:00 03/21/18 04:04 Temperature Pulse Rate 123 H 118 H 119 H Respiratory Rate 46 H 49 H 49 H Blood Pressure 142/65 H 118/59 L Pulse Oximetry 95 95 96 03/21/18 06:00 03/21/18 08:19 Temperature Pulse Rate 115 H Respiratory Rate Blood Pressure Pulse Oximetry 96 Intake & Output 03/20/18 03/21/18 03/21/18 18:59 06:59 18:59 Intake Total 1455.0 / 1455.0 1605.0 / 1605.0 1000 / 1000 Output Total 500 / 500 500 / 500 Balance 955.0 / 955.0 1105.0 / 1105.0 1000 / 1000 Weight 88.5 kg Intake: IV 1255.0 / 1255.0 1605.0 / 1605.0 1000 / 1000 D5W + KCL 20 mEq Inj 1,000 ML @ 1000 / 1000 1000 / 1000 1000 / 1000 100 mls/hr IV.CONT .Q10H CELESTE Rx#:[id number] Azithromycin Inj 500 MG In NS 250 / 250 Inj 250 ML @ 250 mls/hr IV.SIG Q24H CELESTE Rx#:[id number] Maxipime Inj 1,000 MG In NS Inj 100 / 100 200 / 200 100 ML @ 200 mls/hr IV.SIG Q8H CELESTE Rx#:[id number] Cerebyx Inj 125 MGPE In NS Inj 52.5 / 52.5 52.5 / 52.5 50 ML @ 210 mls/hr IV.SIG Q12H CELESTE Rx#:[id number] Keppra Inj 250 MG In NS Inj 100 102.5 / 102.5 102.5 / 102.5 ML @ 400 mls/hr IV.SIG Q12H CELESTE Rx#:[id number] Anesthesia Amount 200 / 200 Output: Urine 500 / 500 300 / 300 Emesis 200 / 200 Other: # Incontinent Voids 3 4 Date of Last Bowel Movement 03/17/18 03/20/18 # Incontinent Bowel Movements 3 1 # Emeses 2 Narrative: GENERAL: NAD, A&Ox3, speech and coherent HEAD: Normocephalic. NECK: Supple, trachea midline. No lymphadenopathy. EYES: No scleral icterus. No injection or drainage. CARDIOVASCULAR: Regular rate and rhythm without murmurs, gallops, or rubs. RESPIRATORY: Breath sounds equal bilaterally. No accessory muscle use. Coarse breath sounds. GASTROINTESTINAL: Abdomen soft, non-tender, nondistended. MUSCULOSKELETAL: No cyanosis, or edema. SKIN: Warm and dry. NEURO: Right-sided hemiplegia. Generalized weakness. Results - Labs CBC & Chem 7: 03/19/18 05:13 03/21/18 04:05 Laboratory Results - last 24 hr 03/16/18 03/21/18 03/21/18 08:41 04:05 04:05 PT 13.9 H INR 1.4 Sodium 148 H Potassium 3.9 Chloride 120 H Carbon Dioxide 20.7 L Anion Gap 7 BUN 9 Creatinine 1.19 H Estimated GFR 54 L POC Glucose Random Glucose 92 Calcium 7.6 L Random Vancomycin 13.5 Copper 165 03/21/18 08:13 PT INR Sodium Potassium Chloride Carbon Dioxide Anion Gap BUN Creatinine Estimated GFR POC Glucose 107 Random Glucose Calcium Random Vancomycin Copper Assessment and Plan - Assessment (1) Severe sepsis Code(s): A41.9 - Sepsis, unspecified organism; R65.20 - Severe sepsis without septic shock Status: Acute (2) Healthcare-associated pneumonia Code(s): J18.9 - Pneumonia, unspecified organism Status: Acute (3) Acute hypernatremia Code(s): E87.0 - Hyperosmolality and hypernatremia Status: Acute - Plan 72-year-old female admitted secondary to pneumonia with generalized weakness and dysphasia Healthcare associated pneumonia Continue cefepime, azithromycin, vancomycin Once patient is changed the antibiotics Continue duo nebs Dysphasia GI following PEG tube placement pending Acute kidney injury Possible chronic kidney disease Slight improvements Continue monitoring Avoid nephrotoxins Hyponatremia Resolved Monitor sodium levels Hypernatremia Improving Monitor sodium levels Anemia Thrombocytopenia Follow CBC Seizure disorder Continue Keppra Continue Dilantin Hyperlipidemia Continue pravastatin once PEG tube in place Hypertension Monitor for now IV treatments as needed Resume enteric treatments once PEG tube in place History of left MCA CVA Coumadin on hold for procedure and due to thrombocytopenia Dementia Follow clinically DVT prophylaxis SCDs Discharge planning Once PEG tube is in place we will seek placement options
--- NOTE | 2018-03-21 11:37 | P.PNGI ---
Subjective Interval history: Patient awake and alert Has had covered with a blanket Post PEG tube placement Tube in place dressing dry and intact, binder in place <Isi Koenig - Last Filed: 03/21/18 11:28> Physical Exam Vital signs: Vital Signs 03/20/18 12:00 03/20/18 13:00 03/20/18 14:00 Temperature Pulse Rate 113 H 112 H 110 H Respiratory Rate 37 H 38 H 37 H Blood Pressure 145/68 H 155/65 H 144/68 H Pulse Oximetry 100 95 97 03/20/18 15:00 03/20/18 15:01 03/20/18 16:26 Temperature Pulse Rate 112 H 116 H 118 H Respiratory Rate 33 H 40 H 37 H Blood Pressure 149/76 H Pulse Oximetry 97 87 L 92 L 03/20/18 16:27 03/20/18 17:00 03/20/18 18:00 Temperature Pulse Rate 118 H 120 H 116 H Respiratory Rate 29 H 39 H 38 H Blood Pressure 143/66 H 163/72 H 161/75 H Pulse Oximetry 93 L 98 100 03/20/18 19:00 03/20/18 20:00 03/20/18 21:00 Temperature 98 F Pulse Rate 120 H 120 H 117 H Respiratory Rate 40 H 38 H 37 H Blood Pressure 111/76 160/95 H 138/59 L Pulse Oximetry 97 97 03/20/18 22:00 03/20/18 22:16 03/20/18 23:00 Temperature Pulse Rate 124 H 128 H Respiratory Rate 41 H 26 H 31 H Blood Pressure 147/64 H 149/65 H Pulse Oximetry 95 96 03/21/18 00:00 03/21/18 01:00 03/21/18 02:00 Temperature Pulse Rate 122 H 124 H 124 H Respiratory Rate 31 H 34 H 39 H Blood Pressure 145/66 H 125/58 L 143/101 H Pulse Oximetry 96 95 95 03/21/18 02:03 03/21/18 03:00 03/21/18 04:00 Temperature Pulse Rate 121 H 123 H 118 H Respiratory Rate 42 H 46 H 49 H Blood Pressure 135/60 142/65 H Pulse Oximetry 97 95 95 03/21/18 04:04 03/21/18 06:00 03/21/18 08:00 Temperature 99.6 F Pulse Rate 119 H 115 H 119 H Respiratory Rate 49 H 24 Blood Pressure 118/59 L 134/59 L Pulse Oximetry 96 96 03/21/18 08:19 Temperature Pulse Rate Respiratory Rate Blood Pressure Pulse Oximetry 96 Intake & Output 03/20/18 03/21/18 03/21/18 18:59 06:59 18:59 Intake Total 1455.0 / 1455.0 1605.0 / 1605.0 1000 / 1000 Output Total 500 / 500 500 / 500 Balance 955.0 / 955.0 1105.0 / 1105.0 1000 / 1000 Weight 88.5 kg Intake: IV 1255.0 / 1255.0 1605.0 / 1605.0 1000 / 1000 D5W + KCL 20 mEq Inj 1,000 ML @ 1000 / 1000 1000 / 1000 1000 / 1000 100 mls/hr IV.CONT .Q10H CELESTE Rx#:[id number] Azithromycin Inj 500 MG In NS 250 / 250 Inj 250 ML @ 250 mls/hr IV.SIG Q24H CELESTE Rx#:[id number] Maxipime Inj 1,000 MG In NS Inj 100 / 100 200 / 200 100 ML @ 200 mls/hr IV.SIG Q8H CELESTE Rx#:[id number] Cerebyx Inj 125 MGPE In NS Inj 52.5 / 52.5 52.5 / 52.5 50 ML @ 210 mls/hr IV.SIG Q12H CELESTE Rx#:[id number] Keppra Inj 250 MG In NS Inj 100 102.5 / 102.5 102.5 / 102.5 ML @ 400 mls/hr IV.SIG Q12H CELESTE Rx#:[id number] Anesthesia Amount 200 / 200 Output: Urine 500 / 500 300 / 300 Emesis 200 / 200 Other: # Incontinent Voids 3 4 Date of Last Bowel Movement 03/17/18 03/20/18 03/20/18 # Incontinent Bowel Movements 3 1 # Emeses 2 - Constitutional no acute distress, chronically ill appearing - Routine HEENT Exam Head: Present: normocephalic - Routine Respiratory Exam Present: CTA bilaterally. Absent: accessory muscle use - Routine Abdominal Exam Present: soft, normoactive bowel sounds. Absent: tenderness, distended, guarding, firm Comments: PEG tube - Routine Skin Exam Present: dry, warm - Routine Neurological Exam Present: alert <Koenig,Isi - Last Filed: 03/21/18 11:28> Vital signs: Vital Signs 03/20/18 15:00 03/20/18 15:01 03/20/18 16:26 Temperature Pulse Rate 112 H 116 H 118 H Respiratory Rate 33 H 40 H 37 H Blood Pressure 149/76 H Pulse Oximetry 97 87 L 92 L 03/20/18 16:27 03/20/18 17:00 03/20/18 18:00 Temperature Pulse Rate 118 H 120 H 116 H Respiratory Rate 29 H 39 H 38 H Blood Pressure 143/66 H 163/72 H 161/75 H Pulse Oximetry 93 L 98 100 03/20/18 19:00 03/20/18 20:00 03/20/18 21:00 Temperature 98 F Pulse Rate 120 H 120 H 117 H Respiratory Rate 40 H 38 H 37 H Blood Pressure 111/76 160/95 H 138/59 L Pulse Oximetry 97 97 03/20/18 22:00 03/20/18 22:16 03/20/18 23:00 Temperature Pulse Rate 124 H 128 H Respiratory Rate 41 H 26 H 31 H Blood Pressure 147/64 H 149/65 H Pulse Oximetry 95 96 03/21/18 00:00 03/21/18 01:00 03/21/18 02:00 Temperature Pulse Rate 122 H 124 H 124 H Respiratory Rate 31 H 34 H 39 H Blood Pressure 145/66 H 125/58 L 143/101 H Pulse Oximetry 96 95 95 03/21/18 02:03 03/21/18 03:00 03/21/18 04:00 Temperature Pulse Rate 121 H 123 H 118 H Respiratory Rate 42 H 46 H 49 H Blood Pressure 135/60 142/65 H Pulse Oximetry 97 95 95 03/21/18 04:04 03/21/18 06:00 03/21/18 08:00 Temperature 99.6 F Pulse Rate 119 H 115 H 119 H Respiratory Rate 49 H 24 Blood Pressure 118/59 L 134/59 L Pulse Oximetry 96 96 03/21/18 08:19 03/21/18 10:00 03/21/18 12:00 Temperature 99 F Pulse Rate 118 H 114 H Respiratory Rate 28 H Blood Pressure 148/65 H Pulse Oximetry 96 97 Intake & Output 03/20/18 03/21/18 03/21/18 18:59 06:59 18:59 Intake Total 1455.0 / 1455.0 1605.0 / 1605.0 1155.0 / 1155.0 Output Total 500 / 500 500 / 500 Balance 955.0 / 955.0 1105.0 / 1105.0 1155.0 / 1155.0 Weight 88.5 kg Intake: IV 1255.0 / 1255.0 1605.0 / 1605.0 1155.0 / 1155.0 D5W + KCL 20 mEq Inj 1,000 ML @ 1000 / 1000 1000 / 1000 1000 / 1000 100 mls/hr IV.CONT .Q10H CELESTE Rx#:[id number] Azithromycin Inj 500 MG In NS 250 / 250 Inj 250 ML @ 250 mls/hr IV.SIG Q24H CELESTE Rx#:[id number] Maxipime Inj 1,000 MG In NS Inj 100 / 100 200 / 200 100 ML @ 200 mls/hr IV.SIG Q8H CELESTE Rx#:[id number] Cerebyx Inj 125 MGPE In NS Inj 52.5 / 52.5 52.5 / 52.5 52.5 / 52.5 50 ML @ 210 mls/hr IV.SIG Q12H CELESTE Rx#:[id number] Keppra Inj 250 MG In NS Inj 100 102.5 / 102.5 102.5 / 102.5 102.5 / 102.5 ML @ 400 mls/hr IV.SIG Q12H CELESTE Rx#:[id number] Anesthesia Amount 200 / 200 Output: Urine 500 / 500 300 / 300 Emesis 200 / 200 Other: # Incontinent Voids 3 4 Date of Last Bowel Movement 03/17/18 03/20/18 03/20/18 # Incontinent Bowel Movements 3 1 # Emeses 2 <Adams Mejia A - Last Filed: 03/21/18 14:07> Results - Labs CBC & Chem 7: 03/19/18 05:13 03/21/18 04:05 Laboratory Results - last 24 hr 03/16/18 03/21/18 03/21/18 08:41 04:05 04:05 PT 13.9 H INR 1.4 Sodium 148 H Potassium 3.9 Chloride 120 H Carbon Dioxide 20.7 L Anion Gap 7 BUN 9 Creatinine 1.19 H Estimated GFR 54 L POC Glucose Random Glucose 92 Calcium 7.6 L Random Vancomycin 13.5 Copper 165 11/24/18 08:13 PT INR Sodium Potassium Chloride Carbon Dioxide Anion Gap BUN Creatinine Estimated GFR POC Glucose 107 Random Glucose Calcium Random Vancomycin Copper <Isi Koenig - Last Filed: 03/21/18 11:28> - Labs CBC & Chem 7: 03/19/18 05:13 03/21/18 04:05 Laboratory Results - last 24 hr 03/21/18 03/21/18 03/21/18 04:05 04:05 08:13 PT 13.9 H INR 1.4 Sodium 148 H Potassium 3.9 Chloride 120 H Carbon Dioxide 20.7 L Anion Gap 7 BUN 9 Creatinine 1.19 H Estimated GFR 54 L POC Glucose 107 Random Glucose 92 Calcium 7.6 L Random Vancomycin 13.5 03/21/18 11:54 PT INR Sodium Potassium Chloride Carbon Dioxide Anion Gap BUN Creatinine Estimated GFR POC Glucose 102 Random Glucose Calcium Random Vancomycin <Adams Mejia - Last Filed: 03/21/18 14:07> Assessment and Plan (1) PEG (percutaneous endoscopic gastrostomy) adjustment/replacement/removal Status: Acute Code(s): Z43.1 - Encounter for attention to gastrostomy - Plan This patient is a 72-year-old female who [facility]. Patient has a medical history significant for CVA with right-sided hemiparesis, seizure disorder, hypertension ,'s asthma, schizoaffective disorder, dementia and heart failure. Patient had previously been on Coumadin for CVA but medication has been held since admission with last confirmed dose being on 03/12/2018. Our service has been consulted to evaluate patient replacement of PEG tube. Patient pulled out PEG tube PEG tube noted to be 18 [place] with 20 mL balloon. Site intact without drainage or bleeding noted. PEG tube placement This is on hold for now due to acute respiratory distress Pneumonia/ Dyspnea per CCm on abx 03/20/2018 PEG placement Patient awake alert confused. Vital signs stable-sinus tach 107, 98% saturation on room air, BP 155/71, 27 RR 03/19/2018 hemoglobin 8.0 hematocrit 25.4 platelet count 90 INR 1.3 03/21/[address] Patient awake alert confused, cooperative No new labs today PEG tube in place without any noted drainage or signs of infection. Abdominal binder in place. 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 -Dietary recommendation for Nepro 1.8 and 50 mL's per hour goal rate -May use PEG tube for medications today -Flush tube with 50 cc of water every 4-6 hours -Flush tube after feedings -Residual check every 4 hours -Abdominal binder as necessary -Supportive care -GI will sign off at this time, please notify if needed This patient has been seen by myself and Dr. Mejia and this note is written on his behalf - Attending Attestation Dr. Mejia <Isi Koenig - Last Filed: 03/21/18 11:28> (1) PEG (percutaneous endoscopic gastrostomy) adjustment/replacement/removal Status: Acute Code(s): Z43.1 - Encounter for attention to gastrostomy - Attending Attestation Agree with above assessment and plan. <Adams Mejia - Last Filed: 03/21/18 14:07>
[2018-03-21] MEDS: SODIUM CHLOR IV.SIG SCH ×2 (11:45→22:00)
[2018-03-21] MEDS: FOSPHENYTOIN IV.SIG SCH ×2 (11:45→22:00)
[2018-03-21] MEDS: SODIUM CHLOR 0.9% IV.SIG SCH (11:47)
[2018-03-21] MEDS: LEVETIRACETAM IV.SIG SCH (11:47)
[2018-03-21] MEDS ORDERED: Vancomycin Inj 1,500 MG in Sodium Chlor 0.9% Inj 500 ML IV.SIG ONE (13:00)
[2018-03-21] MEDS: Mirtazapine 15 MG Tablet PO SCH (21:53)
[2018-03-22] MEDS: SODIUM CHLOR 0.9% IV.SIG SCH ×2 (00:21→11:32)
[2018-03-22] MEDS: LEVETIRACETAM IV.SIG SCH ×2 (00:21→11:32)
[2018-03-22] MEDS: Azithromycin Inj 500 MG in Sodium Chlor 0.9% Inj 250 ML IV.SIG SCH (00:21)
[2018-03-22] MEDS: Morphine Sulfate Inj 2 MG/ML Vial IV.PUSH PRN ×3 (00:22→17:43)
[2018-03-22] MEDS: KCL 20 mEq/Dextrose 5% Inj 1,000 ML IV.CONT SCH ×3 (00:27→15:44)
[2018-03-22 03:59] LABS: Baso % (Auto) 0.2 % (0.0-2.0); Eos # (Auto) 0.3 th/mm3 (0.0-0.4); Eos % (Auto) 3.9 % (0.0-4.0); Hematocrit 23.9 % (35.0-46.0); Hemoglobin 7.6 gm/dL (11.6-15.3); Lymph # (Auto) 1.4 th/mm3 (1.0-4.8); Lymph % (Auto) 17.7 % (9.0-44.0); Mean Corpuscular HGB Conc 31.6 % (32.0-36.0); Mean Corpuscular Hemoglobin 30.1 pg (27.0-34.0); Mean Corpuscular Volume 95.3 fL (80.0-100.0); Mean Platelet Volume 10.1 fL (7.0-11.0); Mono # (Auto) 0.7 th/mm3 (0.0-0.9); Mono % (Auto) 9.1 % (0.0-8.0); Neut # (Auto) 5.6 th/mm3 (1.8-7.7); Neut % (Auto) 69.1 % (16.0-70.0); Platelet Count 113 th/mm3 (150-450); Red Blood Count 2.51 mil/mm3 (4.00-5.30); Red Cell Distribution Width 17.1 % (11.6-17.2); White Blood Count 8.1 th/mm3 (4.0-11.0)
[2018-03-22 04:06] LABS: INR 1.4 Ratio; Prothrombin Time 14.5 sec (9.8-11.6)
[2018-03-22 04:24] LABS: Albumin 1.6 g/dL (3.4-5.0); Anion Gap 6 meq/L (5-15); Aspartate Aminotransferase 39 U/L (15-37); Blood Urea Nitrogen 7 mg/dL (7-18); Calcium 7.5 mg/dL (8.5-10.1); Carbon Dioxide 20.2 meq/L (21.0-32.0); Chloride 123 meq/L (98-107); Glomerular Filtration Rate 54 mL/min (>89); Glucose,Random 85 mg/dL (74-106); Potassium 4.6 meq/L (3.5-5.1); Sodium 149 meq/L (136-145)
[2018-03-22 04:27] LABS: Alanine Aminotransferase 42 U/L (10-53); Alkaline Phosphatase 127 U/L (45-117); Total Protein 6.4 g/dL (6.4-8.2); Vancomycin,Random 25.2 Comment
[2018-03-22] MEDS: Insulin NovoLOG Aspart Correctional Sugar Inj SQ SCH ×4 (07:46→20:48)
[2018-03-22] MEDS: Lansoprazole ODT 15 MG Tablet NG/OG SCH (08:28)
[2018-03-22] MEDS: Senna/Docusate Sodium 8.6/50 MG Tablet PO SCH ×2 (08:28→20:48)
[2018-03-22] MEDS: Ferrous Sulfate 325 MG Tablet PO SCH ×3 (08:28→17:43)
[2018-03-22] MEDS: Potassium Chloride 25 MEQ Effervescent Tablet PO SCH ×2 (08:28→20:48)
[2018-03-22] MEDS: SODIUM CHLOR IV.SIG SCH ×2 (11:31→23:46)
[2018-03-22] MEDS: FOSPHENYTOIN IV.SIG SCH ×2 (11:31→23:46)
--- NOTE | 2018-03-22 11:53 | P.PNIM ---
Subjective Interval history: Status post PEG tube placement yesterday. Downward trending hemoglobin today. No acute complaints from the patient. Patient comfortable. Physical Exam Vital signs: Vital Signs 03/21/18 12:00 03/21/18 13:00 03/21/18 14:00 Temperature 99 F Pulse Rate 114 H 109 H 110 H Respiratory Rate 28 H 18 30 H Blood Pressure 148/65 H 124/59 L Pulse Oximetry 97 96 100 03/21/18 14:01 03/21/18 15:00 03/21/18 16:00 Temperature 99.2 F Pulse Rate 114 H 115 H 116 H Respiratory Rate 35 H 29 H 39 H Blood Pressure 119/55 L 150/64 H Pulse Oximetry 96 97 98 03/21/18 16:01 03/21/18 17:00 03/21/18 18:00 Temperature Pulse Rate 115 H 114 H 117 H Respiratory Rate 51 H 28 H 36 H Blood Pressure 150/64 H 137/64 Pulse Oximetry 99 99 99 03/21/18 19:00 03/21/18 20:00 03/21/18 20:18 Temperature 99.3 F Pulse Rate 110 H 113 H Respiratory Rate 23 31 H Blood Pressure 127/63 Pulse Oximetry 100 99 98 03/21/18 21:00 03/21/18 22:00 03/21/18 23:00 Temperature Pulse Rate 120 H 115 H 120 H Respiratory Rate 34 H 34 H 35 H Blood Pressure 123/58 L Pulse Oximetry 99 100 99 03/22/18 00:00 03/22/18 01:00 03/22/18 01:24 Temperature 98.9 F Pulse Rate 120 H 120 H 123 H Respiratory Rate 36 H 24 29 H Blood Pressure 127/89 123/74 Pulse Oximetry 98 96 99 03/22/18 02:00 03/22/18 02:01 03/22/18 03:00 Temperature Pulse Rate 123 H 126 H 118 H Respiratory Rate 34 H 38 H 26 H Blood Pressure 119/74 Pulse Oximetry 100 98 96 03/22/18 04:00 03/22/18 05:00 03/22/18 06:00 Temperature 98.8 F Pulse Rate 114 H 115 H 117 H Respiratory Rate 22 24 26 H Blood Pressure 115/61 119/58 L Pulse Oximetry 100 96 100 03/22/18 07:00 03/22/18 08:00 03/22/18 09:00 Temperature 98.9 F Pulse Rate 114 H 113 H 114 H Respiratory Rate 19 28 H 34 H Blood Pressure 138/60 Pulse Oximetry 95 98 100 03/22/18 10:00 03/22/18 11:00 Temperature Pulse Rate 110 H 108 H Respiratory Rate 23 22 Blood Pressure 124/58 L Pulse Oximetry 98 100 Intake & Output 03/21/18 03/22/18 03/22/18 18:59 06:59 18:59 Intake Total 1770.0 / 1770.0 1725.0 / 1725.0 Output Total 1425 / 1425 550 / 550 Balance 345.0 / 345.0 1175.0 / 1175.0 Weight 87 kg Intake: IV 1770.0 / 1770.0 1605.0 / 1605.0 D5W + KCL 20 mEq Inj 1,000 ML @ 1000 / 1000 1000 / 1000 100 mls/hr IV.CONT .Q10H [facility] Rx#:[id number] Azithromycin Inj 500 MG In NS 250 / 250 Inj 250 ML @ 250 mls/hr IV.SIG Q24H [facility] Rx#:[id number] Maxipime Inj 1,000 MG In NS Inj 100 / 100 200 / 200 100 ML @ 200 mls/hr IV.SIG Q8H [facility] Rx#:[id number] Cerebyx Inj 125 MGPE In NS Inj 52.5 / 52.5 52.5 / 52.5 50 ML @ 210 mls/hr IV.SIG Q12H [facility] Rx#:[id number] Vancomycin Inj 1,500 MG In NS 515 / 515 Inj 500 ML @ 250 mls/hr IV.SIG ONCE ONE Rx#:[id number] Keppra Inj 250 MG In NS Inj 100 102.5 / 102.5 102.5 / 102.5 ML @ 400 mls/hr IV.SIG Q12H [facility] Rx#:[id number] Oral 0 / 0 Water Bolus Amount 120 / 120 Output: Urine 1425 / 1425 550 / 550 Other: Date of Last Bowel Movement 03/20/18 03/21/18 03/21/18 # Bowel Movements 0 Narrative: GENERAL: NAD, A&Ox3, speech and coherent HEAD: Normocephalic. NECK: Supple, trachea midline. No lymphadenopathy. EYES: No scleral icterus. No injection or drainage. CARDIOVASCULAR: Regular rate and rhythm without murmurs, gallops, or rubs. RESPIRATORY: Breath sounds equal bilaterally. No accessory muscle use. Coarse breath sounds. GASTROINTESTINAL: Abdomen soft, non-tender, nondistended. MUSCULOSKELETAL: No cyanosis, or edema. SKIN: Warm and dry. NEURO: Right-sided hemiplegia. Generalized weakness. Results - Labs CBC & Chem 7: 03/22/18 03:30 03/22/18 03:30 Laboratory Results - last 24 hr 03/21/18 03/21/18 03/21/18 11:54 16:42 21:34 WBC RBC Hgb Hct MCV MCH MCHC RDW Plt Count MPV Neut % (Auto) Lymph % (Auto) [place] % (Auto) Eos % (Auto) Baso % (Auto) Neut # (Auto) Lymph # (Auto) [place] # (Auto) Eos # (Auto) Baso # (Auto) WBC Differential Differential Comment PT INR Sodium Potassium Chloride Carbon Dioxide Anion Gap BUN Creatinine Estimated GFR POC Glucose 102 77 98 Random Glucose Calcium Total Bilirubin AST ALT Alkaline Phosphatase Total Protein Albumin Random Vancomycin 03/22/18 03/22/18 03/22/18 03:30 03:30 03:30 WBC 8.1 RBC 2.51 L Hgb 7.6 L Hct 23.9 L MCV 95.3 MCH 30.1 MCHC 31.6 L RDW 17.1 Plt Count 113 L MPV 10.1 Neut % (Auto) 69.1 Lymph % (Auto) 17.7 [place] % (Auto) 9.1 H Eos % (Auto) 3.9 Baso % (Auto) 0.2 Neut # (Auto) 5.6 Lymph # (Auto) 1.4 [place] # (Auto) 0.7 Eos # (Auto) 0.3 Baso # (Auto) 0.0 WBC Differential . Differential Comment Auto diff final PT 14.5 H INR 1.4 Sodium 149 H Potassium 4.6 Chloride 123 H Carbon Dioxide 20.2 L Anion Gap 6 BUN 7 Creatinine 1.20 H Estimated GFR 54 L POC Glucose Random Glucose 85 Calcium 7.5 L Total Bilirubin 0.7 AST 39 H ALT 42 Alkaline Phosphatase 127 H Total Protein 6.4 Albumin 1.6 L Random Vancomycin 25.2 03/22/18 03/22/18 07:42 11:28 WBC RBC Hgb Hct MCV MCH MCHC RDW Plt Count MPV Neut % (Auto) Lymph % (Auto) [place] % (Auto) Eos % (Auto) Baso % (Auto) Neut # (Auto) Lymph # (Auto) [place] # (Auto) Eos # (Auto) Baso # (Auto) WBC Differential Differential Comment PT INR Sodium Potassium Chloride Carbon Dioxide Anion Gap BUN Creatinine Estimated GFR POC Glucose 99 103 Random Glucose Calcium Total Bilirubin AST ALT Alkaline Phosphatase Total Protein Albumin Random Vancomycin Assessment and Plan - Assessment (1) Severe sepsis Code(s): A41.9 - Sepsis, unspecified organism; R65.20 - Severe sepsis without septic shock Status: Acute (2) Healthcare-associated pneumonia Code(s): J18.9 - Pneumonia, unspecified organism Status: Acute (3) Acute hypernatremia Code(s): E87.0 - Hyperosmolality and hypernatremia Status: Acute - Plan 72-year-old female admitted secondary to pneumonia with generalized weakness and dysphasia Status post PEG tube placement on 03/21/2018. Patient tolerated procedure well. Anemia has progressed this morning and could be related to procedure. Further monitoring of hemoglobin. Labs ordered for further monitoring. Monitor patient for tolerance of tube feeds. Further monitoring of hemoglobin needed. Further monitoring to ensure tolerance of tube feeding needed prior to discharge. Healthcare associated pneumonia Continue cefepime, azithromycin, vancomycin Once patient is changed the antibiotics Continue duo nebs Dysphasia GI following PEG tube placement on 03/21/2018 Acute kidney injury Possible chronic kidney disease Slight improvements Continue monitoring Avoid nephrotoxins Hyponatremia Resolved Monitor sodium levels Hypernatremia Improving Monitor sodium levels Anemia Thrombocytopenia Follow CBC Seizure disorder Continue Keppra Continue Dilantin Hyperlipidemia Continue pravastatin once PEG tube in place and tolerance present Hypertension Monitor for now IV treatments as needed Resume enteric treatments once PEG tube in place and tolerance present History of left MCA CVA Coumadin on hold for procedure and due to thrombocytopenia Dementia Follow clinically DVT prophylaxis SCDs Discharge planning Once PEG tube is in place we will seek placement options
[2018-03-22] MEDS ORDERED: Vancomycin Inj 1,000 MG in Sodium Chlor 0.9% Inj 250 ML IV.SIG ONE (14:00)
[2018-03-22] MEDS: Mirtazapine 15 MG Tablet PO SCH (20:47)
[2018-03-23] MEDS: LEVETIRACETAM IV.SIG SCH ×3 (00:39→23:47)
[2018-03-23] MEDS: SODIUM CHLOR 0.9% IV.SIG SCH ×3 (00:39→23:47)
[2018-03-23] MEDS: Azithromycin Inj 500 MG in Sodium Chlor 0.9% Inj 250 ML IV.SIG SCH (01:25)
[2018-03-23] MEDS: KCL 20 mEq/Dextrose 5% Inj 1,000 ML IV.CONT SCH ×2 (05:05→10:34)
[2018-03-23 08:49] LABS: Baso % (Auto) 0.2 % (0.0-2.0); Eos # (Auto) 0.3 th/mm3 (0.0-0.4); Hematocrit 24.7 % (35.0-46.0); Hemoglobin 8.1 gm/dL (11.6-15.3); Lymph # (Auto) 1.4 th/mm3 (1.0-4.8); Lymph % (Auto) 18.1 % (9.0-44.0); Mean Corpuscular HGB Conc 32.6 % (32.0-36.0); Mean Corpuscular Hemoglobin 30.7 pg (27.0-34.0); Mean Corpuscular Volume 94.3 fL (80.0-100.0); Mean Platelet Volume 9.5 fL (7.0-11.0); Mono # (Auto) 0.8 th/mm3 (0.0-0.9); Neut # (Auto) 5.4 th/mm3 (1.8-7.7); Neut % (Auto) 67.7 % (16.0-70.0); Platelet Count 117 th/mm3 (150-450); Red Blood Count 2.62 mil/mm3 (4.00-5.30); Red Cell Distribution Width 16.8 % (11.6-17.2)
[2018-03-23 08:59] LABS: INR 1.5 Ratio; Prothrombin Time 15.5 sec (9.8-11.6)
[2018-03-23 09:25] LABS: Alanine Aminotransferase 37 U/L (10-53); Albumin 1.5 g/dL (3.4-5.0); Alkaline Phosphatase 111 U/L (45-117); Anion Gap 6 meq/L (5-15); Aspartate Aminotransferase 36 U/L (15-37); Blood Urea Nitrogen 9 mg/dL (7-18); Calcium 7.7 mg/dL (8.5-10.1); Carbon Dioxide 17.8 meq/L (21.0-32.0); Chloride 123 meq/L (98-107); Glomerular Filtration Rate 45 mL/min (>89); Glucose,Random 85 mg/dL (74-106); Potassium 5.5 meq/L (3.5-5.1); Sodium 147 meq/L (136-145); Vancomycin,Random 26.7 Comment
[2018-03-23] MEDS ORDERED: RESP: Albuterol Concentrated 2.5 MG/0.5 ML Neb NEB ONE (10:00)
[2018-03-23] MEDS: Senna/Docusate Sodium 8.6/50 MG Tablet PO SCH ×2 (10:18→21:20)
[2018-03-23] MEDS: Dextrose 5% in Water Inj 1,000 ML IV.CONT SCH ×3 (10:19→19:39)
[2018-03-23] MEDS: Ferrous Sulfate 325 MG Tablet PO SCH ×3 (10:19→19:39)
[2018-03-23] MEDS: Insulin NovoLOG Aspart Correctional Sugar Inj SQ SCH ×4 (10:19→21:19)
[2018-03-23] MEDS ORDERED: WATER IV.SIG ONE ×2 (11:00)
[2018-03-23] MEDS ORDERED: INSULIN REGULAR IV.SIG ONE ×2 (11:00)
[2018-03-23] MEDS ORDERED: Sodium Polystyrene Sulfonate/Sorbitol Liq 15 GM/60 ML UDC PO ONE (11:00)
[2018-03-23] MEDS ORDERED: DEXTROSE 10% IV.SIG ONE ×2 (11:00)
[2018-03-23] MEDS: FOSPHENYTOIN IV.SIG SCH ×2 (13:45→22:45)
[2018-03-23] MEDS: SODIUM CHLOR IV.SIG SCH ×2 (13:45→22:45)
--- NOTE | 2018-03-23 14:06 | P.PN ---
Subjective Interval history: Follow up for generalized weakness. Patient is resting in bed. Wakes up easily on verbal commands. States she is doing well. No acute concerns. PEG tube placed. Physical Exam Vital signs: Vital Signs 03/22/18 15:00 03/22/18 16:00 03/22/18 20:00 Temperature 98.8 F 97.9 F Pulse Rate 108 H 114 H 115 H Respiratory Rate 23 27 H 26 H Blood Pressure 103/78 103/56 L Pulse Oximetry 98 97 100 03/22/18 21:13 03/22/18 22:00 03/22/18 23:01 Temperature 97.6 F Pulse Rate 80 113 H Respiratory Rate 18 Blood Pressure 127/60 Pulse Oximetry 100 95 03/23/18 00:00 03/23/18 00:56 03/23/18 04:00 Temperature 99.6 F 99.4 F Pulse Rate 116 H 113 H 121 H Respiratory Rate 17 19 Blood Pressure 134/60 117/55 L Pulse Oximetry 93 L 93 L 03/23/18 08:00 Temperature 99.5 F Pulse Rate 109 H Respiratory Rate 16 Blood Pressure 107/48 L Pulse Oximetry 94 L Intake & Output 03/22/18 03/23/18 03/23/18 18:59 06:59 18:59 Intake Total 1855.0 / 1855.0 1630.0 / 1630.0 Output Total 500 / 500 Balance 1355.0 / 1355.0 1630.0 / 1630.0 Weight 87.06 kg Intake: IV 1505.0 / 1505.0 1630.0 / 1630.0 D5W + KCL 20 mEq Inj 1,000 ML @ 1000 / 1000 1025 / 1025 100 mls/hr IV.CONT .Q10H [facility] Rx#:[id number] Azithromycin Inj 500 MG In NS 250 / 250 Inj 250 ML @ 250 mls/hr IV.SIG Q24H [facility] Rx#:[id number] Maxipime Inj 1,000 MG In NS Inj 100 / 100 200 / 200 100 ML @ 200 mls/hr IV.SIG Q8H [facility] Rx#:[id number] Cerebyx Inj 125 MGPE In NS Inj 52.5 / 52.5 52.5 / 52.5 50 ML @ 210 mls/hr IV.SIG Q12H [facility] Rx#:[id number] Vancomycin Inj 1,000 MG In NS 250 / 250 Inj 250 ML @ 250 mls/hr IV.SIG ONCE ONE Rx#:[id number] Keppra Inj 250 MG In NS Inj 100 102.5 / 102.5 102.5 / 102.5 ML @ 400 mls/hr IV.SIG Q12H [facility] Rx#:[id number] Oral 0 / 0 0 / 0 Tube Feeding 0 / 0 Water Bolus Amount 150 / 150 Anesthesia Amount 200 / 200 Output: Urine 500 / 500 Urine/Stool Mix 0 / 0 Other: # Voids 2 # Incontinent Voids 2 Date of Last Bowel Movement 03/21/18 # Bowel Movements 0 # Incontinent Bowel Movements 0 Narrative: GENERAL: Sleepy but wakes up on verbal commands. NAD. SKIN: Warm and dry. HEAD: Normocephalic. EYES: No scleral icterus. No injection or drainage. NECK: Supple, trachea midline. No JVD or lymphadenopathy. CARDIOVASCULAR: Regular rate and rhythm without murmurs, gallops, or rubs. RESPIRATORY: Breath sounds equal bilaterally. No accessory muscle use. GASTROINTESTINAL: Abdomen soft, non-tender, nondistended. MUSCULOSKELETAL: No cyanosis, or edema. BACK: Nontender without obvious deformity. No CVA tenderness. Results - Labs CBC & Chem 7: 03/24/18 06:00 03/23/18 16:48 Laboratory Results - last 24 hr 03/22/18 03/22/18 03/23/18 16:57 20:44 07:51 WBC RBC Hgb Hct MCV MCH MCHC RDW Plt Count MPV Neut % (Auto) Lymph % (Auto) [place] % (Auto) Eos % (Auto) Baso % (Auto) Neut # (Auto) Lymph # (Auto) [place] # (Auto) Eos # (Auto) Baso # (Auto) WBC Differential Differential Comment PT INR Sodium Potassium Chloride Carbon Dioxide Anion Gap BUN Creatinine Estimated GFR POC Glucose 84 96 92 Random Glucose Calcium Total Bilirubin AST ALT Alkaline Phosphatase Total Protein Albumin Random Vancomycin 03/23/18 03/23/18 03/23/18 08:36 08:36 08:36 WBC 8.0 RBC 2.62 L Hgb 8.1 L Hct 24.7 L MCV 94.3 MCH 30.7 MCHC 32.6 RDW 16.8 Plt Count 117 L MPV 9.5 Neut % (Auto) 67.7 Lymph % (Auto) 18.1 [place] % (Auto) 10.0 H Eos % (Auto) 4.0 Baso % (Auto) 0.2 Neut # (Auto) 5.4 Lymph # (Auto) 1.4 [place] # (Auto) 0.8 Eos # (Auto) 0.3 Baso # (Auto) 0.0 WBC Differential . Differential Comment Auto diff final PT 15.5 H INR 1.5 Sodium 147 H Potassium 5.5 H D Chloride 123 H Carbon Dioxide 17.8 L Anion Gap 6 BUN 9 Creatinine 1.41 H Estimated GFR 45 L POC Glucose Random Glucose 85 Calcium 7.7 L Total Bilirubin 0.6 AST 36 ALT 37 Alkaline Phosphatase 111 Total Protein 6.0 L Albumin 1.5 L Random Vancomycin 26.7 03/23/18 12:25 WBC RBC Hgb Hct MCV MCH MCHC RDW Plt Count MPV Neut % (Auto) Lymph % (Auto) [place] % (Auto) Eos % (Auto) Baso % (Auto) Neut # (Auto) Lymph # (Auto) [place] # (Auto) Eos # (Auto) Baso # (Auto) WBC Differential Differential Comment PT INR Sodium Potassium Chloride Carbon Dioxide Anion Gap BUN Creatinine Estimated GFR POC Glucose 165 H Random Glucose Calcium Total Bilirubin AST ALT Alkaline Phosphatase Total Protein Albumin Random Vancomycin Assessment and Plan - Assessment (1) Severe sepsis Code(s): A41.9 - Sepsis, unspecified organism; R65.20 - Severe sepsis without septic shock Status: Acute (2) Healthcare-associated pneumonia Code(s): J18.9 - Pneumonia, unspecified organism Status: Acute (3) Acute hypernatremia Code(s): E87.0 - Hyperosmolality and hypernatremia Status: Acute - Plan 72-year-old female admitted secondary to pneumonia with generalized weakness and dysphasia Status post PEG tube placement on 03/21/2018. Patient tolerated procedure well. Anemia has progressed this morning and could be related to procedure. Further monitoring of hemoglobin. Labs ordered for further monitoring. Monitor patient for tolerance of tube feeds. Further monitoring of hemoglobin needed. Further monitoring to ensure tolerance of tube feeding needed prior to discharge. Dysphasia GI following PEG tube placement on 03/21/2018 Will consult radiator repairer to recommend appropriate type of tube feed. Acute kidney injury Possible chronic kidney disease Remains around 1.4 which is likely patient's baseline. Avoid nephrotoxins Hyponatremia Resolved Monitor sodium levels Hypernatremia Improving. 146 on 03/23/2018. Anemia Thrombocytopenia Follow CBC Seizure disorder Continue Keppra Continue Dilantin Hyperlipidemia Continue pravastatin once PEG tube in place and tolerance present Hypertension Monitor for now IV treatments as needed Resume enteric treatments once PEG tube in place and tolerance present History of left MCA CVA Coumadin on hold for procedure and due to thrombocytopenia Dementia Follow clinically DVT prophylaxis SCDs
--- NOTE | 2018-03-23 14:07 | P.DIET ---
Nutritional Evaluation Type of nutrition evaluation: follow-up Nutrition consult regarding: Tube Feeding Nutrition screening: [facility] [place] ([place]) Screening comments: 03/12 TF review 03/18 NPO x3 days 03/23 [facility] [place] Feeding Subjective Subjective Comments: Pt pulled out her own PEG before PEG replacement on the same day 03/18. Objective - Diagnosis sepsis, pneumonia - Objective % IBW: 134 (IBW = 135lb) Body Weight Used for Calculations: Actual Energy Needs - Lower Range (kCal/kg): 25 Energy Needs - Upper Range (kCal/kg): 30 Lower Limit kCal/kg (kCals): 2,060 Upper Limit kCal/kg (kCals): 2,472 Lower Limit Protein Factor (Grams per Kg): 1.1 Upper Limit Protein Factor (Grams per Kg): 1.3 Lower Protein Needs (Protein): 91 Upper Protein Needs (Protein): 107 Dietitian Reviewed in Medical Record: Current diet, Curent medications, Intake & Output, Labs, Medical history, Tube feeding Diet Order: NPO Objective Comments: PMH: CKD, CVA, dysphagia, failure to thrive, GERD, CHF, HTN, hypokalemia, IBS, schizoaffective disorder, vascular dementia Labs: K+ 5.5, Cr 1.41, GFR 14, POC glucose 165 Assessment Assessment: Pt s/p PEG tube placement on 03/21. Per MD note, when PEG in place, seek placement options for pt. MDC for TF received on 03/23. RD to recommend Nepro 1.8 @ 50mL/hr to provide 2160kcal, 97g of protein, and 872mL of free water to best meet pts nutritional needs. Continue to monitor TF tolerance. Wt noted, CBW = 87kg. Labs reviewed, dietitian following. Recommendations: 1. RD to recommend Nepro 1.8 @ 50mL/hr to best meet pts nutritional needs 2. Monitor TF tolerance 3. Dietitian following Dietitian to Monitor: Lab values, Intake & Output, Tube feeding tolerance, Medical course
[2018-03-23] MEDS: Lansoprazole ODT 15 MG Tablet NG/OG SCH (14:32)
[2018-03-23 17:33] LABS: Calcium 7.6 mg/dL (8.5-10.1); Carbon Dioxide 16.8 meq/L (21.0-32.0); Potassium 4.6 meq/L (3.5-5.1)
[2018-03-23] MEDS: Potassium Chloride 25 MEQ Effervescent Tablet PO SCH (18:44)
[2018-03-23] MEDS: Mirtazapine 15 MG Tablet PO SCH (21:19)
[2018-03-23] MEDS ORDERED: levETIRAcetam 250 MG Tablet PO ONE (22:30)
[2018-03-23] MEDS ORDERED: Phenytoin Susp 100 MG/4 ML UDC PO ONE (23:00)
[2018-03-24] MEDS ORDERED: levETIRAcetam 250 MG Tablet PO ONE
[2018-03-24] MEDS: Dextrose 5% in Water Inj 1,000 ML IV.CONT SCH ×3 (05:21→23:56)
[2018-03-24 07:20] LABS: INR 1.5 Ratio; Prothrombin Time 15.2 sec (9.8-11.6)
[2018-03-24] MEDS: Phenytoin Susp 100 MG/4 ML UDC G-TUBE SCH ×2 (09:34→21:41)
[2018-03-24] MEDS: Insulin NovoLOG Aspart Correctional Sugar Inj SQ SCH ×4 (09:34→21:43)
[2018-03-24] MEDS: Senna/Docusate Sodium 8.6/50 MG Tablet PO SCH ×2 (09:37→21:41)
[2018-03-24] MEDS: Lansoprazole ODT 15 MG Tablet NG/OG SCH (09:37)
[2018-03-24] MEDS: Ferrous Sulfate 325 MG Tablet PO SCH ×3 (09:47→19:44)
--- NOTE | 2018-03-24 18:31 | P.PN ---
Subjective Interval history: Follow up for generalized weakness, dementia. Patient is resting in bed. Wakes up on verbal commands. Denies any acute concerns. Tolerating tube feed well. Physical Exam Vital signs: Vital Signs 03/23/18 20:00 03/24/18 00:00 03/24/18 04:00 Temperature 98.3 F 98.6 F 98.5 F Pulse Rate 111 H 110 H 115 H Respiratory Rate 14 16 16 Blood Pressure 108/51 L 110/58 L 104/52 L Pulse Oximetry 96 96 98 03/24/18 08:00 03/24/18 12:00 03/24/18 16:00 Temperature 99.0 F 98.8 F 98.8 F Pulse Rate 114 H 109 H 116 H Respiratory Rate 20 18 20 Blood Pressure 123/57 L 152/67 H 129/58 L Pulse Oximetry 99 95 98 Intake & Output 03/23/18 03/24/18 03/24/18 18:59 06:59 18:59 Intake Total 655.12 / 655.12 1056 / 1056 Output Total 900 / 900 Balance 655.12 / 655.12 156 / 156 Weight 89 kg Intake: IV 655.12 / 655.12 500 / 500 D5W Inj 1,000 ML @ 100 mls/hr 500 / 500 IV.CONT .Q10H [facility] Rx#:[id number] Cerebyx Inj 125 MGPE In NS Inj 52.5 / 52.5 50 ML @ 210 mls/hr IV.SIG Q12H [facility] Rx#:[id number] NovoLIN R (IV Infusion) 12 UNIT 500.12 / 500.12 In D10W Inj 500 ML @ 12 UNITS/ HR 500.12 mls/hr IV.SIG ONCE ONE Rx#:[id number] Keppra Inj 250 MG In NS Inj 100 102.5 / 102.5 ML @ 400 mls/hr IV.SIG Q12H [facility] Rx#:[id number] Tube Feeding 356 / 356 Tube Irrigant 200 / 200 Output: Urine 900 / 900 Other: # Voids 3 # Incontinent Voids 1 Date of Last Bowel Movement 03/21/18 03/21/18 # Bowel Movements 1 Narrative: GENERAL: Sleepy but wakes up on verbal commands. NAD. SKIN: Warm and dry. HEAD: Normocephalic. EYES: No scleral icterus. No injection or drainage. NECK: Supple, trachea midline. No JVD or lymphadenopathy. CARDIOVASCULAR: Regular rate and rhythm without murmurs, gallops, or rubs. RESPIRATORY: Breath sounds equal bilaterally. No accessory muscle use. GASTROINTESTINAL: Abdomen soft, non-tender, nondistended. MUSCULOSKELETAL: No cyanosis, or edema. BACK: Nontender without obvious deformity. No CVA tenderness. Results - Labs CBC & Chem 7: 03/24/18 06:00 03/23/18 16:48 Laboratory Results - last 24 hr 03/23/18 03/23/18 03/24/18 18:19 21:18 06:00 Plt Count PT 15.2 H INR 1.5 POC Glucose 81 75 03/24/18 03/24/18 03/24/18 06:00 08:31 12:19 Plt Count 111 L PT INR POC Glucose 108 117 H 03/24/18 17:06 Plt Count PT INR POC Glucose 112 H Assessment and Plan - Assessment (1) Severe sepsis Code(s): A41.9 - Sepsis, unspecified organism; R65.20 - Severe sepsis without septic shock Status: Acute (2) Healthcare-associated pneumonia Code(s): J18.9 - Pneumonia, unspecified organism Status: Acute (3) Acute hypernatremia Code(s): E87.0 - Hyperosmolality and hypernatremia Status: Acute - Plan This is a 72-year-old female admitted for pneumonia Possible aspiration pneumonia -CXR showed right sided consolidation. -Patient received Vanc, Zosyn, Azithromycin. -She has been off abx for two days. No fever chills. Will check CBC, BMP in the AM. Hypernatremia -Currently on tube feed with free water flushes -Will check BMP, CBC in the AM. Acute kidney injury -Appears to be at base line around 1.4. -Avoid nephrotoxins. Dysphagia -Tolerating tube feed well. Goal rate 50/hour. Anemia, Thrombocytopenia -Iron supplement, Thrombocytopenia likely secondary to sepsis, heme following, improving. Abdominal US ordered, limited exam but no specific abnormalities noted. Improving. -Plt count improved from 50 --> 111. Seizure disorder -Continue keppra and dilantin, will switch to PO once PEG today. Dyslipidemia -Pravastatin Hypertension -Blood pressure in the 140s range. -Will consider Carvedilol 6.25mg BID for HTN and tachycardia History of left MCA CVA -Coumadin will be re-started today. Discussed with Pharmacy. History of dementia -Delirium precautions (lights on/ shades up during the day, limit nighttime disruptions, frequent reorientation, avoid deliriogenic meds, avoid constipation / urinary retention), MS at baseline Full code. Warfarin.
[2018-03-24] MEDS: Mirtazapine 15 MG Tablet PO SCH (21:41)
[2018-03-25] MEDS ORDERED: guaiFENesin/Dextromethorphan 200 MG/20 MG 10 ML UDC PO PRN (03:53)
[2018-03-25] MEDS: Morphine Sulfate Inj 2 MG/ML Vial IV.PUSH PRN ×2 (04:14→09:50)
[2018-03-25] MEDS: Dextrose 5% in Water Inj 1,000 ML IV.CONT SCH ×3 (04:17→22:21)
[2018-03-25 08:09] LABS: Baso % (Auto) 0.2 % (0.0-2.0); Eos # (Auto) 0.4 th/mm3 (0.0-0.4); Eos % (Auto) 5.3 % (0.0-4.0); Hematocrit 23.8 % (35.0-46.0); Hemoglobin 7.7 gm/dL (11.6-15.3); Lymph # (Auto) 1.4 th/mm3 (1.0-4.8); Mean Corpuscular HGB Conc 32.5 % (32.0-36.0); Mean Corpuscular Hemoglobin 30.4 pg (27.0-34.0); Mean Corpuscular Volume 93.7 fL (80.0-100.0); Mean Platelet Volume 9.1 fL (7.0-11.0); Mono # (Auto) 0.9 th/mm3 (0.0-0.9); Mono % (Auto) 11.8 % (0.0-8.0); Neut # (Auto) 4.8 th/mm3 (1.8-7.7); Neut % (Auto) 63.7 % (16.0-70.0); Platelet Count 127 th/mm3 (150-450); Red Blood Count 2.54 mil/mm3 (4.00-5.30); Red Cell Distribution Width 16.5 % (11.6-17.2); White Blood Count 7.5 th/mm3 (4.0-11.0)
[2018-03-25 08:17] LABS: INR 1.4 Ratio; Prothrombin Time 14.6 sec (9.8-11.6)
[2018-03-25 08:43] LABS: Calcium 7.6 mg/dL (8.5-10.1); Potassium 3.4 meq/L (3.5-5.1)
[2018-03-25] MEDS: Insulin NovoLOG Aspart Correctional Sugar Inj SQ SCH (09:40)
[2018-03-25] MEDS: Carvedilol 6.25 MG Tablet PO SCH ×2 (09:41→22:20)
[2018-03-25] MEDS: Ferrous Sulfate 325 MG Tablet PO SCH ×3 (09:41→17:07)
[2018-03-25] MEDS: Lansoprazole ODT 15 MG Tablet NG/OG SCH (09:41)
[2018-03-25] MEDS: Senna/Docusate Sodium 8.6/50 MG Tablet PO SCH ×2 (09:41→22:20)
[2018-03-25] MEDS: Phenytoin Susp 100 MG/4 ML UDC G-TUBE SCH ×2 (09:41→22:19)
--- NOTE | 2018-03-25 10:43 | P.PN ---
Subjective Interval history: Follow up for generalized weakness, dementia. Patient is resting in bed. Patient wakes up on verbal commands. No acute concerns. She denies any chest pain, shortness of breath, fever or chills. Tolerating tube feed well. Physical Exam Vital signs: Vital Signs 03/24/18 12:00 03/24/18 16:00 03/24/18 17:00 Temperature 98.8 F 98.8 F Pulse Rate 114 H 112 H 112 H Respiratory Rate 18 20 Blood Pressure 152/67 H 129/58 L Pulse Oximetry 95 98 03/24/18 19:49 03/24/18 20:00 03/24/18 23:44 Temperature 97.6 F Pulse Rate 115 H 112 H 120 H Respiratory Rate 20 Blood Pressure 141/64 H Pulse Oximetry 97 03/25/18 00:00 03/25/18 04:00 03/25/18 05:02 Temperature 99.3 F 98.5 F Pulse Rate 119 H 123 H Respiratory Rate 20 19 19 Blood Pressure 152/68 H 126/57 L Pulse Oximetry 96 95 03/25/18 08:00 Temperature 98.1 F Pulse Rate 111 H Respiratory Rate 18 Blood Pressure 125/57 L Pulse Oximetry 98 Intake & Output 03/24/18 03/25/18 03/25/18 18:59 06:59 18:59 Intake Total 0 / 0 0 / 0 Balance 0 / 0 0 / 0 Intake: Oral 0 / 0 0 / 0 Other: # Voids 1 # Incontinent Voids 2 Date of Last Bowel Movement 03/21/18 03/24/18 # Bowel Movements 1 2 Narrative: GENERAL: Sleepy but wakes up on verbal commands. NAD. SKIN: Warm and dry. HEAD: Normocephalic. EYES: No scleral icterus. No injection or drainage. NECK: Supple, trachea midline. No JVD or lymphadenopathy. CARDIOVASCULAR: Regular rate and rhythm without murmurs, gallops, or rubs. RESPIRATORY: Breath sounds equal bilaterally. No accessory muscle use. GASTROINTESTINAL: Abdomen appears to be somewhat firm, no tenderness on palpation. MUSCULOSKELETAL: No cyanosis, or edema. BACK: Nontender without obvious deformity. No CVA tenderness. Results - Labs CBC & Chem 7: 03/25/18 07:52 03/25/18 07:52 Laboratory Results - last 24 hr 03/24/18 03/24/18 03/24/18 12:19 17:06 19:51 WBC RBC Hgb Hct MCV MCH MCHC RDW Plt Count MPV Neut % (Auto) Lymph % (Auto) Lucas % (Auto) Eos % (Auto) Baso % (Auto) Neut # (Auto) Lymph # (Auto) Lucas # (Auto) Eos # (Auto) Baso # (Auto) WBC Differential Differential Comment PT INR Sodium Potassium Chloride Carbon Dioxide Anion Gap BUN Creatinine Estimated GFR POC Glucose 117 H 112 H 96 Random Glucose Calcium 03/25/18 03/25/18 03/25/18 07:51 07:52 07:52 WBC RBC Hgb Hct MCV MCH MCHC RDW Plt Count MPV Neut % (Auto) Lymph % (Auto) Lucas % (Auto) Eos % (Auto) Baso % (Auto) Neut # (Auto) Lymph # (Auto) Lucas # (Auto) Eos # (Auto) Baso # (Auto) WBC Differential Differential Comment PT 14.6 H INR 1.4 Sodium 150 H Potassium 3.4 L D Chloride 121 H Carbon Dioxide 20.0 L Anion Gap 9 BUN 12 Creatinine 1.31 H Estimated GFR 49 L POC Glucose 108 Random Glucose 99 Calcium 7.6 L 03/25/18 07:52 WBC 7.5 RBC 2.54 L Hgb 7.7 L Hct 23.8 L MCV 93.7 MCH 30.4 MCHC 32.5 RDW 16.5 Plt Count 127 L MPV 9.1 Neut % (Auto) 63.7 Lymph % (Auto) 19.0 Lucas % (Auto) 11.8 H Eos % (Auto) 5.3 H Baso % (Auto) 0.2 Neut # (Auto) 4.8 Lymph # (Auto) 1.4 Lucas # (Auto) 0.9 Eos # (Auto) 0.4 Baso # (Auto) 0.0 WBC Differential . Differential Comment Auto diff final PT INR Sodium Potassium Chloride Carbon Dioxide Anion Gap BUN Creatinine Estimated GFR POC Glucose Random Glucose Calcium - Imaging Chest X-Ray 03/11/18 21:40 CONCLUSION: There is a new area of parenchymal consolidation in the medial right lower lobe. Head CT 03/12/18 04:21 CONCLUSION: 1. No acute hemorrhage or mass effect. 2. Remote left middle cerebral artery territory infarct with encephalomalacia and ex vacuo change. . Abdomen X-Ray 03/16/18 00:00 CONCLUSION: NG tube tip in the upper stomach. Chest X-Ray 03/16/18 00:00 CONCLUSION: Right lower lung opacity unchanged. Liver Ultrasound 03/16/18 00:00 CONCLUSION: 1. Limited exam due to patient's inability to cooperate with examination. The common bile duct and portal vein are not visualized. 2. Cirrhotic appearing liver. 3. Cholelithiasis without sonographic evidence for cholecystitis. 4. Apparent interval enlargement of simple appearing pancreatic cyst. Interval change in size may be due to differences in technique (ultrasound versus CT). Chest X-Ray 03/17/18 13:45 CONCLUSION: Unchanged right lower lobe infiltrate. Assessment and Plan - Assessment (1) Severe sepsis Code(s): A41.9 - Sepsis, unspecified organism; R65.20 - Severe sepsis without septic shock Status: Acute (2) Healthcare-associated pneumonia Code(s): J18.9 - Pneumonia, unspecified organism Status: Acute (3) Acute hypernatremia Code(s): E87.0 - Hyperosmolality and hypernatremia Status: Acute - Plan This is a 72-year-old female admitted for Generalized weakness. Possible aspiration pneumonia -CXR showed right sided consolidation. -Patient received Vanc, Zosyn, Azithromycin. -She has been off abx. No fever chills. Hypernatremia -Currently on tube feed with free water flushes -We will continue D5W. Sodium today 150. Check sodium level this afternoon and in the morning. Acute kidney injury -Appears to be at base line around 1.3-1.4 -Avoid nephrotoxins. Dysphagia -Tolerating tube feed well. Goal rate 50/hour. Continue free water 250cc Q6hrs. Anemia, Thrombocytopenia -Iron supplement, Thrombocytopenia likely secondary to sepsis, heme following, improving. Abdominal US ordered, limited exam but no specific abnormalities noted. Improving. -Plt count improved from 50 --> 127. Seizure disorder Hx of Dementia -Continue keppra and dilantin PO via PEG tube. Dyslipidemia -Pravastatin Hypertension -Blood pressure in the 140s range. -Carvedilol 6.25mg BID for HTN and tachycardia History of left MCA CVA -Coumadin re-started. Pharmacy to dose. Full code. Warfarin. Discharge plan: Na is still high 150 today. Not ready for discharge. Expect d/c in the next 24-48 hours.
[2018-03-25] MEDS: Mirtazapine 15 MG Tablet PO SCH (22:20)
[2018-03-26 08:26] VITALS: RESP 16
[2018-03-26] MEDS: Carvedilol 6.25 MG Tablet PO SCH (09:16)
[2018-03-26] MEDS: Ferrous Sulfate 325 MG Tablet PO SCH ×2 (09:16→12:45)
[2018-03-26] MEDS: Lansoprazole ODT 15 MG Tablet NG/OG SCH (09:17)
[2018-03-26] MEDS: Senna/Docusate Sodium 8.6/50 MG Tablet PO SCH (09:17)
[2018-03-26] MEDS: Phenytoin Susp 100 MG/4 ML UDC G-TUBE SCH (09:17)
[2018-03-26 11:37] LABS: INR 1.5 Ratio; Prothrombin Time 15.6 sec (9.8-11.6)
--- NOTE | 2018-03-26 12:05 | P.DS ---
Date of admission: 03/12/18 00:35 Primary care physician: Sean Stein MD Attending physician on discharge: David Jhaveri Anticipated date of discharge: 03/26/18 Brief History from admission: 72-year-old female presents for evaluation of shortness of breath. Patient comes from an SNF. She has history of CVA with right-sided hemiparesis, seizure disorder, hypertension, asthma, schizoaffective disorder, dementia, heart failure. According to EMS, they were called for shortness of breath. However, her oxygen saturations were 97% on oxygen. Appears to be at her baseline according to EMS. She is slightly tachycardic, 110-120. According to records, she is on Coumadin. Patient is unable to contribute any history or physical. According to SNF records, she is currently on Levaquin for congestion. In the emergency department she was found to have a sodium level of 178/180 and has been admitted to ICU. Patient update on day of discharge: Patient is resting in bed, answers questions appropriately, wakes up on verbal commands. No fever, chills. No acute concerns. Tolerating tube feed well. DS: Diagnosis - Discharge Diagnosis (1) Severe sepsis Status: Acute (2) Healthcare-associated pneumonia Status: Acute (3) Acute hypernatremia Status: Acute DS: Medications - Discharge Medications Prescriptions: carvedilol [Coreg] 6.25 mg PO BID #60 tab DS: Summary Hospital Course: This is a 72-year-old female admitted for Generalized weakness. Possible aspiration pneumonia -CXR showed right sided consolidation. -Patient received Vanc, Zosyn, Azithromycin. -She has been off abx. No fever chills. Hypernatremia -Currently on tube feed with free water flushes -Sodium improved from 150 --> 147 --> 145. -Continue Tube feed Nepro 50cc/hour with free water flushes 200-250cc [id number]. -Check BMP in 3 days. Acute kidney injury -Appears to be at base line around 1.3-1.4 -Avoid nephrotoxins. Dysphagia -Tolerating tube feed well. Goal rate 50/hour. Continue free water 250cc Q6hrs. Anemia, Thrombocytopenia -Iron supplement, Thrombocytopenia likely secondary to sepsis, heme following, improving. Abdominal US ordered, limited exam but no specific abnormalities noted. Improving. -Plt count improved from 50 --> 127. Seizure disorder Hx of Dementia -Continue keppra and dilantin PO via PEG tube. Dyslipidemia -Pravastatin Hypertension -Blood pressure in the 140s range. -Carvedilol 6.25mg BID for HTN and tachycardia History of left MCA CVA -Coumadin re-started. Pharmacy to dose. Full code. Warfarin. INR 1.5. - Time Spent with Patient Total time spent providing and/or coordinating discharge services: Less than 30 minutes Exam Vital signs: Vital Signs 03/25/18 12:00 03/25/18 12:20 03/25/18 16:00 Temperature 98.2 F 98.2 F Pulse Rate 111 H 103 H 109 H Respiratory Rate 16 20 Blood Pressure 129/65 125/78 Pulse Oximetry 99 98 03/25/18 17:42 03/25/18 20:00 03/26/18 00:00 Temperature 98.4 F 97.7 F Pulse Rate 100 H 96 H Respiratory Rate 18 19 Blood Pressure 130/60 139/64 Pulse Oximetry 98 100 95 03/26/18 03:45 03/26/18 04:00 03/26/18 08:00 Temperature 97.2 F L 97.5 F L Pulse Rate 94 H 94 H 99 H Respiratory Rate 18 16 Blood Pressure 134/59 L 119/55 L Pulse Oximetry 97 96 03/26/18 09:40 Temperature Pulse Rate Respiratory Rate Blood Pressure Pulse Oximetry 96 Intake & Output 03/25/18 03/26/18 03/26/18 18:59 06:59 18:59 Intake Total 1000 / 1000 0 / 0 Output Total 200 / 200 Balance 800 / 800 0 / 0 Weight 85.9 kg Intake: IV 1000 / 1000 D5W Inj 1,000 ML @ 100 mls/hr 1000 / 1000 IV.CONT .Q10H CELESTE Rx#:[id number] Oral 0 / 0 0 / 0 Output: Urine 200 / 200 Other: # Incontinent Voids 2 # Urine Diapers 2 Date of Last Bowel Movement 03/25/18 03/26/18 # Bowel Movements 1 2 Narrative: GENERAL: Sleepy but wakes up on verbal commands. NAD. SKIN: Warm and dry. HEAD: Normocephalic. EYES: No scleral icterus. No injection or drainage. NECK: Supple, trachea midline. No JVD or lymphadenopathy. CARDIOVASCULAR: Regular rate and rhythm without murmurs, gallops, or rubs. RESPIRATORY: Breath sounds equal bilaterally. No accessory muscle use. GASTROINTESTINAL: Abdomen appears to be somewhat firm, no tenderness on palpation. MUSCULOSKELETAL: No cyanosis, or edema. BACK: Nontender without obvious deformity. No CVA tenderness. Results Procedures completed during hospitalization: PEG tube placement by GI (Dr. Mejia). 03/20/2018 Labs on day of discharge: Labs from last 24 hours 03/26/18 03/26/18 03/26/18 11:08 11:08 11:08 Plt Count 114 L PT 15.6 H INR 1.5 Sodium 145 03/25/18 19:45 Plt Count PT INR Sodium 147 H - Impressions ITS Impressions Head CT 03/12/18 04:21 CONCLUSION: 1. No acute hemorrhage or mass effect. 2. Remote left middle cerebral artery territory infarct with encephalomalacia and ex vacuo change. . Abdomen X-Ray 03/16/18 00:00 CONCLUSION: NG tube tip in the upper stomach. Liver Ultrasound 03/16/18 00:00 CONCLUSION: 1. Limited exam due to patient's inability to cooperate with examination. The common bile duct and portal vein are not visualized. 2. Cirrhotic appearing liver. 3. Cholelithiasis without sonographic evidence for cholecystitis. 4. Apparent interval enlargement of simple appearing pancreatic cyst. Interval change in size may be due to differences in technique (ultrasound versus CT). Chest X-Ray 03/17/18 13:45 CONCLUSION: Unchanged right lower lobe infiltrate. Discharge Plan - Discharge Disposition Patient Disposition: Discharge to SNF - Discharge Condition Condition: Stable - Discharge Order Discharge Orders: Discharge Order (Routine); Ordered 03/26/18 Ordered By: David Jhaveri - Discharge Details Anticipated Discharge Date: 03/26/18 - Physicians Team Primary Care Provider: Sean Stein V Attending Provider: David Jhaveri Other Providers: [facility] ; Melanie Jaime ; Adams Mejia MD ; Darling Cruz MD ; [facility]
[2018-03-26 12:44] VITALS: BP 130/61; PULSE 94; TEMP 98.1; O2SAT 95
== END 2018-03-26 15:40 ==
LOC: NEPC 21:22 → NEDA 03-12 00:35 → NEDH 03-12 05:13 → N03 03-12 06:38 → N05 03-14 14:40 → HIMC 03-17 13:48 → N04 03-22 22:20
PROVIDERS: ADMIT Hospitalist; ATTEND Hospitalist
DX: Z88.6 Allergy status to analgesic agent; R00.0 Tachycardia, unspecified; Z53.09 Procedure and treatment not carried out because of other contraindication; I48.91 Unspecified atrial fibrillation; J69.0 Pneumonitis due to inhalation of food and vomit; I69.351 Hemiplegia and hemiparesis following cerebral infarction affecting right dominant side; E78.5 Hyperlipidemia, unspecified; N17.9 Acute kidney failure, unspecified; G40.909 Epilepsy, unspecified, not intractable, without status epilepticus; K21.9 Gastro-esophageal reflux disease without esophagitis; Z43.1 Encounter for attention to gastrostomy; I69.391 Dysphagia following cerebral infarction; D64.9 Anemia, unspecified; A41.9 Sepsis, unspecified organism; R13.10 Dysphagia, unspecified; R79.1 Abnormal coagulation profile; K31.89 Other diseases of stomach and duodenum; R04.0 Epistaxis; Z86.14 Personal history of Methicillin resistant Staphylococcus aureus infection; Z79.01 Long term (current) use of anticoagulants; R06.03 Acute respiratory distress; E86.0 Dehydration; F25.9 Schizoaffective disorder, unspecified; E87.0 Hyperosmolality and hypernatremia; N18.1 Chronic kidney disease, stage 1; F01.51 Vascular dementia, unspecified severity, with behavioral disturbance; F41.9 Anxiety disorder, unspecified; R65.20 Severe sepsis without septic shock; I69.320 Aphasia following cerebral infarction; I13.0 Hypertensive heart and chronic kidney disease with heart failure and stage 1 through stage 4 chronic kidney disease, or unspecified chronic kidney disease; I50.9 Heart failure, unspecified; J45.909 Unspecified asthma, uncomplicated; D69.59 Other secondary thrombocytopenia

== ENCOUNTER 2018-04-16 17:57 | Inpatient (IN) ==
[2018-04-16] MEDS ORDERED: Acetaminophen 325 MG Tablet G-TUBE ONE (18:31)
--- NOTE | 2018-04-16 18:48 | ED ---
HPI General Chief Complaint: Fever Stated Complaint: Fever Time Seen by Provider: 04/16/18 18:15 Source: EMS and old records reviewed Mode of arrival: EMS Limitations: physical limitation and other (dementia) History of Present Illness HPI Narrative: 72 YO F with PMH of A fib, CVA with sided weakness, CKD, PEG tube, HTN, dementia on WARFARIN presents to the ED via EMS from [facility] for evaluation of fever. Per record review the patient is A&O x 2 at baseline. On presentation she is alert,moving the left extremities but nonverbal. She is resistant to exam. She is unable to provide any meaningful history. Related Data Home Medications Medication Instructions Recorded Confirmed ferrous sulfate 325 mg FEEDING TUBE TID 03/11/18 04/16/18 mirtazapine 7.5 mg FEEDING TUBE DAILY 03/11/18 04/16/18 phenytoin [Dilantin Infatabs] 125 mg G-TUBE BID 03/11/18 04/16/18 pravastatin 20 mg FEEDING TUBE BID 03/11/18 04/16/18 famotidine 20 mg FEEDING TUBE BID 03/12/18 04/16/18 triamcinolone acetonide 1 applic TOPICAL BID 03/12/18 04/16/18 warfarin 10 mg FEEDING TUBE QTUTHSA 03/12/18 04/16/18 potassium chloride 20 meq PO DAILY 04/16/18 04/16/18 vancomycin 125 mg FEEDING TUBE QID 04/16/18 04/16/18 Previous Rx's Medication Instructions Recorded carvedilol [Coreg] 6.25 mg PO BID #60 tab 03/26/18 levetiracetam [Keppra] 250 mg FEEDING TUBE BID ml 03/26/18 Allergies Allergy/AdvReac Type Severity Reaction Status Date / Time aspirin Allergy Severe Hives Verified 04/16/18 19:27 *MDRO Multi-Drug Resistant AdvReac Unknown Cleared Uncoded 04/16/18 19:36 Organism 05/2016 Review of Systems ROS: all other systems reviewed are negative FOR[facility]LY [facility] Medical History Medical History Agnosia (Acute) Angina pectoris, unspecified (Acute) Anxiety (Acute) CKD (chronic kidney disease) (Acute) CVA (cerebral vascular accident) (Acute) Dysphagia (Acute) Failure to thrive (Acute) GERD (gastroesophageal reflux disease) (Acute) Gastrointestinal tube present (Acute) HTN (hypertension) (Acute) Heart failure (Acute) History of MRSA infection (Acute ~03/12/18) Hypokalemia (Acute) IBS (irritable bowel syndrome) (Acute) Schizoaffective disorder (Acute) Vascular dementia with behavior disturbance (Acute) Surgical History Surgical History H/O mastectomy (Acute) S/P percutaneous endoscopic gastrostomy (PEG) tube placement (Acute) Family History Family History Other Hypertension Social History Social History Substance History: Unable to Obtain Second Hand Smoke Exposure: No Smoking Status: Cognitive impairment How Often Do You Have a Drink Containing Alcohol: Unable to Obtain Recent Travel in [place] within the Last 8 Weeks: No Recent Out of Country Travel within the Last 8 Weeks: No Exam Narrative Exam Narrative: GENERAL: Well nourished, well developed AA female in NAD. SKIN: Focused skin assessment warm/dry. Excoriation of the right buttock without warmth, fluctuance, or induration. PICC line in left upper arm. Mild erythema on the posterior aspect of the arm. No warmth, tenderness, discharge. HEAD: Atraumatic. Normocephalic. EYES: Pupils equal and round. No scleral icterus. No injection or drainage. ENT: No nasal bleeding or discharge. Mucous membranes pink and moist. NECK: Trachea midline. No JVD. CARDIOVASCULAR: Regular rate and rhythm. No murmur appreciated. RESPIRATORY: No accessory muscle use. Clear breath sounds. Breath sounds equal bilaterally. GASTROINTESTINAL: Abdomen soft, non-tender, nondistended. G-Tube in place. Hepatic and splenic margins not palpable. MUSCULOSKELETAL: No obvious deformities. Right sided weakness, worse in the upper extremity. No clubbing. No cyanosis. No edema. NEUROLOGICAL: Awake and alert. No obvious cranial nerve deficits. Nonverbal. Course Initial Documented Vital Signs Temperature 102.0 F H 04/16/18 18:29 Pulse Rate 106 H 04/16/18 18:29 Respiratory Rate 18 04/16/18 18:29 Blood Pressure 135/81 12/20/18 18:29 Pulse Oximetry 100 12/20/18 18:29 Last Documented Vital Signs Temperature 102.4 F H 04/16/18 23:05 Pulse Rate 117 H 04/16/18 23:05 Respiratory Rate 18 04/16/18 23:05 Blood Pressure 174/79 H 04/16/18 22:15 Pulse Oximetry 97 04/16/18 23:05 Medical Decision Making MDM Narrative Medical decision making narrative: 72 YO F with PMH of A fib, CVA with left sided weakness, CKD, PEG tube, HTN, dementia on WARFARIN presents to the ED via EMS from [facility] for evaluation of fever. Per record review the patient is A&O x 2 at baseline. On presentation she is alert,moving the left extremities but nonverbal. She is resistant to exam. On arrival patient temp is 102.0, heart rate 106. O2 sats 100% on room air with respiratory rate of 18. BP 135/81. On physical exam there is a PICC line in the left arm with a little associated erythema. Patient has a PEG tube. Belly exam is unremarkable. Lung sounds clear. Per the chart review the patient is hypernatremic, last sodium 163 on 04/14. Patient was administered Tylenol in the PEG tube. We will hold fluids at this time. CBC shows WBCs 8.7, hemoglobin 10.4. INR 2.4. CXR reveals mild parenchymal opacity in the right lung base improved from prior exam. Left lung grossly clear. IV was established. CMP called for recollect. PICC line was removed. Blood cultures were obtained. Catheter tip sent for cultures. IV vancomycin and Zosyn issued. On recheck patient remains febrile. She was administered IV Ofirmev. CMP shows Sodium 157. 1/2 NS initiated. Plan to admit. I spoke with Dr. Hollis who agrees to accept the patient to the medicine service. Please see medicine notes for details. Medical Screen Exam Complete: Yes Emergency Medical Condition: Yes Differential Diagnosis Differential Diagnosis: sepsis versus PNA versus UTI versus other Lab Data Result diagrams: 04/16/18 19:30 04/16/18 21:30 Lab Results 04/16/18 04/16/18 04/16/18 Range/Units 19:30 19:30 19:44 WBC 8.7 (4.0-11.0) th/mm3 RBC 3.51 L (4.00-5.30) mil/mm3 Hgb 10.4 L (11.6-15.3) gm/dL Hct 33.6 L (35.0-46.0) % MCV 95.6 (80.0-100.0) fL MCH 29.7 (27.0-34.0) pg MCHC 31.0 L (32.0-36.0) % RDW 17.9 H (11.6-17.2) % Plt Count 103 L (150-450) th/mm3 MPV 12.4 H (7.0-11.0) fL Neut % (Auto) 71.7 H (16.0-70.0) % Lymph % (Auto) 16.8 (9.0-44.0) % [place] % (Auto) 8.6 H (0.0-8.0) % Eos % (Auto) 2.6 (0.0-4.0) % Baso % (Auto) 0.3 (0.0-2.0) % Neut # (Auto) 6.2 (1.8-7.7) th/mm3 Lymph # (Auto) 1.5 (1.0-4.8) th/mm3 [place] # (Auto) 0.7 (0.0-0.9) th/mm3 Eos # (Auto) 0.2 (0.0-0.4) th/mm3 Baso # (Auto) 0.0 (0.0-0.2) th/mm3 WBC Differential . Differential Comment Auto diff final PT (9.8-11.6) sec INR Ratio Sodium (136-145) meq/L Potassium (3.5-5.1) meq/L Chloride (98-107) meq/L Carbon Dioxide (21.0-32.0) meq/L Anion Gap (5-15) meq/L BUN (7-18) mg/dL Creatinine (0.50-1.00) mg/dL Estimated GFR (>89) mL/min Random Glucose (74-106) mg/dL Lactic Acid 1.5 (0.4-2.0) mmol/L Calcium (8.5-10.1) mg/dL Total Bilirubin (0.2-1.0) mg/dL AST (15-37) U/L ALT (10-53) U/L Alkaline Phosphatase (45-117) U/L Total Protein (6.4-8.2) g/dL Albumin (3.4-5.0) g/dL Urine Color Yellow (Yellw/Straw) Urine Clarity Clear (Clear) Urine pH 6.0 (5.0-8.5) Ur Specific [place] 1.015 (1.002-1.035) Urine Protein 30 H (Neg-Trace) mg/dL Urine Glucose (UA) Negative (Negative) mg/dL Urine Ketones Negative (Negative) mg/dL Urine Occult Blood Negative (Negative) Urine Nitrate Negative (Negative) Urine Bilirubin Negative (Negative) Urine Urobilinogen Less than 2 (Less than 2) mg/dL Ur Leukocyte Esterase Negative (Negative) Urine RBC 1 (0-3) /hpf Urine WBC 1 (0-5) /hpf Urine Mucus Few H (Occasional) /lpf Micro UA Comment Cath-culture not ind Ur Microscopic Review Not Reportable Urine Culture Comments Cath-cult not ind 04/16/18 04/16/18 Range/Units 21:30 21:30 WBC (4.0-11.0) th/mm3 RBC (4.00-5.30) mil/mm3 Hgb (11.6-15.3) gm/dL Hct (35.0-46.0) % MCV (80.0-100.0) fL MCH (27.0-34.0) pg MCHC (32.0-36.0) % RDW (11.6-17.2) % Plt Count (150-450) th/mm3 MPV (7.0-11.0) fL Neut % (Auto) (16.0-70.0) % Lymph % (Auto) (9.0-44.0) % [place] % (Auto) (0.0-8.0) % Eos % (Auto) (0.0-4.0) % Baso % (Auto) (0.0-2.0) % Neut # (Auto) (1.8-7.7) th/mm3 Lymph # (Auto) (1.0-4.8) th/mm3 [place] # (Auto) (0.0-0.9) th/mm3 Eos # (Auto) (0.0-0.4) th/mm3 Baso # (Auto) (0.0-0.2) th/mm3 WBC Differential Differential Comment PT 22.7 H (9.8-11.6) sec INR 2.2 Ratio Sodium 157 H* (136-145) meq/L Potassium 3.9 (3.5-5.1) meq/L Chloride 127 H (98-107) meq/L Carbon Dioxide 26.5 (21.0-32.0) meq/L Anion Gap 4 L (5-15) meq/L BUN 28 H (7-18) mg/dL Creatinine 1.39 H (0.50-1.00) mg/dL Estimated GFR 45 L (>89) mL/min Random Glucose 94 (74-106) mg/dL Lactic Acid (0.4-2.0) mmol/L Calcium 7.5 L (8.5-10.1) mg/dL Total Bilirubin 0.9 (0.2-1.0) mg/dL AST 78 H (15-37) U/L ALT 53 (10-53) U/L Alkaline Phosphatase 178 H (45-117) U/L Total Protein 7.7 (6.4-8.2) g/dL Albumin 2.0 L (3.4-5.0) g/dL Urine Color (Yellw/Straw) Urine Clarity (Clear) Urine pH (5.0-8.5) Ur Specific [place] (1.002-1.035) Urine Protein (Neg-Trace) mg/dL Urine Glucose (UA) (Negative) mg/dL Urine Ketones (Negative) mg/dL Urine Occult Blood (Negative) Urine Nitrate (Negative) Urine Bilirubin (Negative) Urine Urobilinogen (Less than 2) mg/dL Ur Leukocyte Esterase (Negative) Urine RBC (0-3) /hpf Urine WBC (0-5) /hpf Urine Mucus (Occasional) /lpf Micro UA Comment Ur Microscopic Review Urine Culture Comments Imaging Data Radiologist's impression: Chest X-Ray 04/16/18 18:31 CONCLUSION: Mild right base infiltrate Discharge Plan Discharge Disposition Patient Disposition: ED Admit(ED Internal Use Only) Discharge Order Discharge Orders: ED Use Only Admit Order (Routine); Ordered 04/16/18 Ordered By: Leann Corrales Physicians Team ED Provider: Jessica Marques ED Midlevel Provider: Leann Corrales Primary Care Provider: Sean Stein V Attending Provider: Yennifer Hollis Discharge Interventions Interventions: Vital Signs Last Done: 04/16/18 23:05 Status ED Status: Admitted Patient
--- NOTE | 2018-04-16 19:48 | XR ---
EXAM DATE: 04/16/2018 7:42 PM EST AGE/SEX: 72 years / Female INDICATIONS: Fever. CLINICAL DATA: This is the patient's initial encounter. Patient reports that signs and symptoms have been present for 1 day and indicates a pain score of Nonresponsive. MEDICAL/SURGICAL HISTORY: . Hypertension. Inflammatory bowel disease. Congestive heart failure. Left breast cancer. Intracerebral bleed. Dysphagia. Seizures. Hyperlipidemia. Asthma. Pleural effusi on. Sleep apnea. Insomnia. Dyspnea. GI Bleed. GERD. Cirrhosis. Schizoaffective disorder. Depression. Anxiety. MRSA. None. COMPARISON: [facility] – [place], CHEST 1V SINGLE AP, 03/17/2018. . FINDINGS: Right chest port is present in satisfactory position. There is mild parenchymal opacity in the right lung base however improved from prior exam. Left lung is grossly clear. Accounting for rotation, card iac contours are satisfactory. Surgical clips are present in the left axillary region. CONCLUSION: Mild right base infiltrate Electronically signed by: Kye Gonzalez MD Board Certified Radiologist 04/16/2018 7:46 PM EST
[2018-04-16 20:12] LABS: Baso % (Auto) 0.3 % (0.0-2.0); Eos # (Auto) 0.2 th/mm3 (0.0-0.4); Eos % (Auto) 2.6 % (0.0-4.0); Hematocrit 33.6 % (35.0-46.0); Hemoglobin 10.4 gm/dL (11.6-15.3); Lymph # (Auto) 1.5 th/mm3 (1.0-4.8); Lymph % (Auto) 16.8 % (9.0-44.0); Mean Corpuscular Hemoglobin 29.7 pg (27.0-34.0); Mean Corpuscular Volume 95.6 fL (80.0-100.0); Mean Platelet Volume 12.4 fL (7.0-11.0); Mono # (Auto) 0.7 th/mm3 (0.0-0.9); Mono % (Auto) 8.6 % (0.0-8.0); Neut # (Auto) 6.2 th/mm3 (1.8-7.7); Neut % (Auto) 71.7 % (16.0-70.0); Platelet Count 103 th/mm3 (150-450); Red Blood Count 3.51 mil/mm3 (4.00-5.30); Red Cell Distribution Width 17.9 % (11.6-17.2); White Blood Count 8.7 th/mm3 (4.0-11.0)
[2018-04-16 20:23] LABS: Bilirubin,Urine Negative (Negative); Clarity,Urine Clear (Clear); Color,Urine Yellow (Yellw/Straw); Glucose,Urine (UA) Negative (Negative); Leukocyte Esterase,Urine Negative (Negative); Mucus,Urine Few /lpf (Occasional); Nitrite,Urine Negative (Negative); Specific Gravity,Urine 1.015 (1.002-1.035)
[2018-04-16] MEDS ORDERED: Piperacil/Tazo 3.375 GM Premix 3.375 GM/50 ML PIGGYBACK IV.SIG ONE (20:52)
[2018-04-16] MEDS ORDERED: Vancomycin Consult Pharmacy OTHER PRN ×2 (20:54→23:05)
[2018-04-16 22:02] LABS: INR 2.2 Ratio; Prothrombin Time 22.7 sec (9.8-11.6)
[2018-04-16] MEDS ORDERED: Acetaminophen Inj 650 MG/65 ML VIAL IV.SIG ONE (22:14)
[2018-04-16 22:28] LABS: Alanine Aminotransferase 53 U/L (10-53); Alkaline Phosphatase 178 U/L (45-117); Anion Gap 4 meq/L (5-15); Aspartate Aminotransferase 78 U/L (15-37); Blood Urea Nitrogen 28 mg/dL (7-18); Calcium 7.5 mg/dL (8.5-10.1); Carbon Dioxide 26.5 meq/L (21.0-32.0); Chloride 127 meq/L (98-107); Glomerular Filtration Rate 45 mL/min (>89); Total Protein 7.7 g/dL (6.4-8.2)
[2018-04-16 22:29] LABS: Glucose,Random 94 mg/dL (74-106)
[2018-04-16 22:36] LABS: Potassium 3.9 meq/L (3.5-5.1); Sodium 157 meq/L (136-145)
[2018-04-16] MEDS ORDERED: Sodium Chloride 0.45 % Inj 1,000 ML IV.SIG ONE (22:53)
[2018-04-16] MEDS ORDERED: Bisacodyl 10 MG Supp RECTAL PRN (23:05)
--- NOTE | 2018-04-16 23:10 | P.HPIM ---
History of Present Illness Primary Care Physician: Sean Stein MD History of Present Illness: This is a 80-year-old female with a PMH of HTN, Hyperlipidemia, A-fib, Schizoaffective Disorder, Dementia, Anxiety, h/o CVA, h/ o CAD and C Diff who was sent to the ER from [facility] for eval of hypernatremia and fever. Unable to obtain any history from patient due to mental status, appears to be at baseline. Noted to have LUE PICC line w/ surrounding erythema, PICC removed in ER. On arrival, BP 135/81, HR 106, O2 sat 100% on RA, Temp 102.0. WBC 8.7. INR 2.2. Na 157, previously 150 on 03/25. UA negative for UTI. CXR mild right base infiltrate. S/p Zosyn in ER. Diagnosis (1) Sepsis: (2) PNA (pneumonia): (3) Hypernatremia: (4) Dementia: (5) C. difficile colitis: Review of Systems PAST FAMILY HISTORY: Unknown ROS Unobtainable: unobtainable due to mental condition [facility] Medical History Medical History Agnosia (Acute) Angina pectoris, unspecified (Acute) Anxiety (Acute) CKD (chronic kidney disease) (Acute) CVA (cerebral vascular accident) (Acute) Dysphagia (Acute) Failure to thrive (Acute) GERD (gastroesophageal reflux disease) (Acute) Gastrointestinal tube present (Acute) HTN (hypertension) (Acute) Heart failure (Acute) History of MRSA infection (Acute ~03/12/18) Hypokalemia (Acute) IBS (irritable bowel syndrome) (Acute) Schizoaffective disorder (Acute) Vascular dementia with behavior disturbance (Acute) Surgical History Surgical History H/O mastectomy (Acute) S/P percutaneous endoscopic gastrostomy (PEG) tube placement (Acute) Family History Family History Other Hypertension Social History Social History Substance History: Unable to Obtain Second Hand Smoke Exposure: No Smoking Status: Cognitive impairment How Often Do You Have a Drink Containing Alcohol: Unable to Obtain Recent Travel in [place] within the Last 8 Weeks: No Recent Out of Country Travel within the Last 8 Weeks: No Immunization History Tetanus Immunization: Unsure Medications and Allergies Allergies Allergy/AdvReac Type Severity Reaction Status Date / Time aspirin Allergy Severe Hives Verified 04/16/18 19:27 *MDRO Multi-Drug Resistant AdvReac Unknown Cleared Uncoded 04/16/18 19:36 Organism 05/2016 Home Medications Medication Instructions Recorded Confirmed Type ferrous sulfate 325 mg FEEDING TUBE TID 03/11/18 04/16/18 History mirtazapine 7.5 mg FEEDING TUBE DAILY 03/11/18 04/16/18 History phenytoin [Dilantin Infatabs] 125 mg G-TUBE BID 03/11/18 04/16/18 History pravastatin 20 mg FEEDING TUBE BID 03/11/18 04/16/18 History famotidine 20 mg FEEDING TUBE BID 03/12/18 04/16/18 History triamcinolone acetonide 1 applic TOPICAL BID 03/12/18 04/16/18 History warfarin 10 mg FEEDING TUBE QTUTHSA 03/12/18 04/16/18 History potassium chloride 20 meq PO DAILY 04/16/18 04/16/18 History vancomycin 125 mg FEEDING TUBE QID 04/16/18 04/16/18 History Active Medications: Active Medications Pharmacy Profile Note (Vancomycin Consult Pharmacy) 1 each OTHER UNSCH PRN PRN Reason: Pharmacy to dose Sodium Chloride (Ns Flush) 2 ml IV.FLUSH PRN PRN PRN Reason: FLUSH AFTER USING IV ACCESS Physical Exam Vital signs: Last Vital Signs Temp 102.4 F H 04/16/18 23:05 Pulse 117 H 04/16/18 23:05 Resp 18 04/16/18 23:05 BP 174/79 H 04/16/18 22:15 Pulse Ox 97 04/16/18 23:05 Intake & Output 04/14/18 04/15/18 04/16/18 04/17/18 06:59 06:59 06:59 06:59 Intake Total 115 / 115 Balance 115 / 115 Weight 90.718 kg Narrative: PE: GENERAL: Elderly black female breathing heavily but no acute distress, answers few questions but nodding/shaking head, mostly nonverbal. SKIN: Focused skin assessment warm and dry. HEENT: PERRLA, EOMI. No scleral icterus or conjunctival pallor. No lid lag or facial droop. CARDIOVASCULAR: Regular rate and rhythm. No obvious murmurs to auscultation. No chest tenderness to palpation. RESPIRATORY: No obvious rhonchi or wheezing. Clear to auscultation. Breath sounds equal bilaterally. GASTROINTESTINAL: Abdomen soft, non-tender, nondistended. BS normal. G-tube in place. MUSCULOSKELETAL: Extremities without clubbing, cyanosis, or edema. No obvious deformities. NEUROLOGICAL: Awake, alert and oriented x4. H/o CVA w/ right weakness, no new focal neurologic deficits. Moving both upper and lower extremities spontaneously. PSYCHIATRIC: Unable to assess. Results Labs CBC & Chem 7: 04/16/18 19:30 04/17/18 00:50 Imaging Impressions Chest X-Ray 04/16/18 18:31 CONCLUSION: Mild right base infiltrate Caprini VTE Risk Assessment Caprini VTE Risk Assessment: No/Low Risk (score <= 1) Caprini Risk Assessment Model: Point Value = 1 Point Value = 2 Point Value = 3 Point Value = 5 Age 41-60 Minor surgery BMI > 25 kg/m2 Swollen legs Varicose veins or History of unexplained or recurrent spontaneous Oral contraceptives or hormone replacement Sepsis (< 1 month) Serious lung disease, including pneumonia (< 1 month) Abnormal pulmonary function Acute myocardial infarction Congestive heart failure (< 1 month) History of inflammatory bowel disease Medical patient at bed rest Age 61-74 Arthroscopic surgery Major open surgery (> 45 min) Laparoscopic surgery (> 45 min) Malignancy Confined to bed (> 72 hours) Immobilizing plaster cast Central venous access Age >= 75 History of VTE Family history of VTE Factor V Leiden Prothrombin [id number] Lupus anticoagulant Anticardiolipin antibodies Elevated serum homocysteine Heparin-induced thrombocytopenia Other congenital or acquired thrombophilia Stroke (< 1 month) Elective arthroplasty Hip, pelvis, or leg fracture Acute spinal cord injury (< 1 month) Prophylaxis Regimen: Total Risk Factor Score Risk Level Prophylaxis Regimen 0-1 Low Early ambulation 2 Moderate Order ONE of the following: *Sequential Compression Device (SCD) *Heparin 5000 units SQ BID 3-4 Higher Order ONE of the following medications: *Heparin 5000 units SQ TID *Enoxaparin/Lovenox 40 mg SQ daily (WT < 150 kg, CrCl > 30 mL/min) *Enoxaparin/Lovenox 30 mg SQ daily (WT < 150 kg, CrCl > 10-29 mL/min) *Enoxaparin/Lovenox 30 mg SQ BID (WT < 150 kg, CrCl > 30 mL/min) AND/OR *Sequential Compression Device (SCD) 5 or more Highest Order ONE of the following medications: *Heparin 5000 units SQ TID (Preferred with Epidurals) *Enoxaparin/Lovenox 40 mg SQ daily (WT < 150 kg, CrCl > 30 mL/min) *Enoxaparin/Lovenox 30 mg SQ daily (WT < 150 kg, CrCl > 10-29 mL/min) *Enoxaparin/Lovenox 30 mg SQ BID (WT < 150 kg, CrCl > 30 mL/min) AND *Sequential Compression Device (SCD) Assessment and Plan (1) Sepsis: Code(s): A41.9 - Sepsis, unspecified organism Status: Acute (2) PNA (pneumonia): Code(s): J18.9 - Pneumonia, unspecified organism Status: Acute (3) Hypernatremia: Code(s): E87.0 - Hyperosmolality and hypernatremia Status: Acute (4) Dementia: Code(s): F03.90 - Unspecified dementia without behavioral disturbance Status: Acute (5) C. difficile colitis: Code(s): A04.72 - Enterocolitis due to Clostridium difficile, not specified as recurrent Status: Acute Plan A/P: 1. Sepsis: Temp 102.4, HR 106, Source-PNA, s/p blood cultures, Zosyn IV, continue w/ Zosyn, add Vanc, follow up cultures, IVF for hydration. 2. PNA: CXR w/ right base infiltrate, DuoNeb prn, continue w/ IV Abx, monitor O2 sat. 3. Hypernatremia: Na 157, previously 150 on last admit, D5 1/2NS, repeat Na q4h, free water boluses, telemetry. Neuro checks 4. Dementia: appears to be at baseline, mostly nonverbal but nods/shakes head to few questions, resume home medications. 5. C Diff: from SNF, resume home Vanc PO, isolation. 6. DVT Prophylaxis: SCD/Teds 7. Social work for d/c planning as needed. 8. Case discussed w/ ER physician at length, labs/records/imaging reviewd by me.
[2018-04-17] MEDS: Dextrose 5%/NaCl 0.45% Inj 1,000 ML IV.CONT SCH ×2 (00:12→20:35)
[2018-04-17] MEDS ORDERED: Vancomycin Inj 1,750 MG in Sodium Chlor 0.9% Inj 500 ML IV.SIG ONE (01:00)
[2018-04-17] MEDS: Acetaminophen 325 MG Tablet PO PRN ×3 (03:08→23:18)
[2018-04-17] MEDS: Chlorhexidine Gluconate 2% 1 Pack (2 Cloths) TOPICAL SCH (03:08)
[2018-04-17] MEDS ORDERED: Metoprolol Inj 5 MG/5 ML Vial IV.PUSH ONE (03:55)
[2018-04-17] MEDS ORDERED: Chlorhexidine Gluconate 2% 1 Pack (2 Cloths) TOPICAL PRN ×2 (04:00)
[2018-04-17 06:06] LABS: Albumin 1.8 g/dL (3.4-5.0); Calcium 7.1 mg/dL (8.5-10.1); Carbon Dioxide 24.9 meq/L (21.0-32.0); Total Protein 7.1 g/dL (6.4-8.2)
[2018-04-17 06:20] LABS: Baso % (Auto) 0.2 % (0.0-2.0); Eos # (Auto) 0.3 th/mm3 (0.0-0.4); Eos % (Auto) 2.9 % (0.0-4.0); Hematocrit 26.9 % (35.0-46.0); Hemoglobin 8.7 gm/dL (11.6-15.3); Lymph # (Auto) 1.2 th/mm3 (1.0-4.8); Lymph % (Auto) 12.3 % (9.0-44.0); Mean Corpuscular HGB Conc 32.3 % (32.0-36.0); Mean Corpuscular Hemoglobin 30.8 pg (27.0-34.0); Mean Corpuscular Volume 95.3 fL (80.0-100.0); Mean Platelet Volume 12.1 fL (7.0-11.0); Mono # (Auto) 1.2 th/mm3 (0.0-0.9); Mono % (Auto) 12.5 % (0.0-8.0); Neut # (Auto) 7.2 th/mm3 (1.8-7.7); Neut % (Auto) 72.1 % (16.0-70.0); Platelet Count 88 th/mm3 (150-450); Red Blood Count 2.82 mil/mm3 (4.00-5.30); Red Cell Distribution Width 17.8 % (11.6-17.2); White Blood Count 9.9 th/mm3 (4.0-11.0)
[2018-04-17 06:24] LABS: Potassium 4.3 meq/L (3.5-5.1)
--- NOTE | 2018-04-17 07:53 | P.PNIM ---
Subjective Interval history: The patient is in bed appears lethargic. Dry mucous membranes. Responding bymoaning at times falling asleep immediately. Does not follow commands. With MRSA bacteremia repeat blood cx and consult ID Physical Exam Vital signs: Last Vital Signs Temp 100.0 F H 04/17/18 04:00 Pulse 122 H 04/17/18 02:35 Resp 33 H 04/17/18 02:35 BP 180/72 H 04/17/18 02:35 Pulse Ox 100 04/17/18 02:35 Intake & Output 04/15/18 04/16/18 04/17/18 04/18/18 06:59 06:59 06:59 06:59 Intake Total 1115 / 1115 535 / 535 Balance 1115 / 1115 535 / 535 Weight 90.718 kg Narrative: PE: GENERAL: Elderly black female breathing heavily but no acute distress, answers few questions but nodding/shaking head, mostly nonverbal. SKIN: Focused skin assessment warm and dry. HEENT: PERRLA, EOMI. Dry mucous membranes. CARDIOVASCULAR: Regular rate and rhythm. No obvious murmurs to auscultation. Decreased capillary refill. RESPIRATORY: No obvious rhonchi or wheezing. Clear to auscultation. Breath sounds equal bilaterally. GASTROINTESTINAL: Abdomen soft, non-tender, nondistended. BS normal. G-tube in place. MUSCULOSKELETAL: Extremities without clubbing, cyanosis, or edema. No obvious deformities. NEUROLOGICAL: Sleepy and lethargic. H/o CVA w/ right weakness, no new focal neurologic deficits. Moving both upper and lower extremities spontaneously. Doesn't follow commands. PSYCHIATRIC: Unable to assess. Urinary Catheter Management Indwelling Temp Sensing Catheter: Cath placed during this visit: yes Urethral indwelling: No Insertion date: 04/16/18 Insertion time: 19:00 Results Labs CBC & Chem 7: 04/17/18 04:22 04/17/18 12:18 Imaging Imaging: Impressions Chest X-Ray 04/16/18 18:31 CONCLUSION: Mild right base infiltrate Assessment and Plan (1) Sepsis: Code(s): A41.9 - Sepsis, unspecified organism Status: Acute (2) PNA (pneumonia): Code(s): J18.9 - Pneumonia, unspecified organism Status: Acute (3) Hypernatremia: Code(s): E87.0 - Hyperosmolality and hypernatremia Status: Acute (4) Dementia: Code(s): F03.90 - Unspecified dementia without behavioral disturbance Status: Acute (5) C. difficile colitis: Code(s): A04.72 - Enterocolitis due to Clostridium difficile, not specified as recurrent Status: Acute Plan Sepsis: MRSA bacteremia With Temp 102.4, HR 106, Source-PNA/ MRSA bacateremia Blood cultures, with MRSA . Repeat blood cx 04/17/18 Consult ID Continue Zosyn IV, Vanc, follow up cultures IVF for hydration. PNA: CXR w/ right base infiltrate, DuoNeb prn, continue w/ IV Abx, monitor O2 sat. Hypernatremia: Na 157, previously 150 on last admit, D5 1/2NS, repeat Na q4h, free water boluses, telemetry. Neuro checks. Dementia: appears to be at baseline, mostly nonverbal but nods/shakes head to few questions, resume home medications. C Diff: from SNF, resume home Vanc PO, isolation. DVT Prophylaxis: SCD/Teds CM consulted for d/c planning as needed. Discussed with the patient, ICU nurse
[2018-04-17] MEDS: Pantoprazole Inj 40 MG Vial IV.PUSH SCH (08:31)
[2018-04-17] MEDS: Famotidine PF Inj 20 MG/2 ML Vial IV.PUSH SCH ×2 (08:32→20:36)
[2018-04-17] MEDS: Phenytoin 50 MG Chewable Tablet G-TUBE SCH ×2 (08:32→20:36)
[2018-04-17] MEDS: Senna/Docusate Sodium 8.6/50 MG Tablet PO SCH ×2 (08:32→20:36)
[2018-04-17] MEDS: Famotidine 20 MG Tablet PO SCH ×2 (08:33→20:39)
[2018-04-18] MEDS: Chlorhexidine Gluconate 2% 1 Pack (2 Cloths) TOPICAL SCH (03:12)
[2018-04-18 06:26] LABS: Baso % (Auto) 0.2 % (0.0-2.0); Eos # (Auto) 0.7 th/mm3 (0.0-0.4); Eos % (Auto) 11.1 % (0.0-4.0); Hematocrit 28.5 % (35.0-46.0); Hemoglobin 9.1 gm/dL (11.6-15.3); Lymph # (Auto) 1.3 th/mm3 (1.0-4.8); Lymph % (Auto) 19.8 % (9.0-44.0); Mean Corpuscular HGB Conc 31.8 % (32.0-36.0); Mean Corpuscular Hemoglobin 30.4 pg (27.0-34.0); Mean Corpuscular Volume 95.8 fL (80.0-100.0); Mono # (Auto) 0.6 th/mm3 (0.0-0.9); Mono % (Auto) 9.4 % (0.0-8.0); Neut % (Auto) 59.5 % (16.0-70.0); Platelet Count 77 th/mm3 (150-450); Red Blood Count 2.98 mil/mm3 (4.00-5.30); Red Cell Distribution Width 17.3 % (11.6-17.2); White Blood Count 6.7 th/mm3 (4.0-11.0)
[2018-04-18 06:45] LABS: Calcium 7.7 mg/dL (8.5-10.1); Carbon Dioxide 19.9 meq/L (21.0-32.0); Potassium 4.1 meq/L (3.5-5.1)
[2018-04-18 06:46] LABS: Vancomycin,Random 13.8 Comment
[2018-04-18 08:55] LABS: Eosinophils 7 % (0-4); Lymphocytes 11 % (9-44); Monocytes 1 % (0-8); Platelet Morphology Normal (Normal)
[2018-04-18] MEDS: Pantoprazole Inj 40 MG Vial IV.PUSH SCH (09:15)
[2018-04-18] MEDS: Famotidine 20 MG Tablet PO SCH ×2 (09:16→23:10)
[2018-04-18] MEDS: Senna/Docusate Sodium 8.6/50 MG Tablet PO SCH ×2 (09:16→23:11)
[2018-04-18] MEDS: Famotidine PF Inj 20 MG/2 ML Vial IV.PUSH SCH ×2 (09:16→22:50)
[2018-04-18] MEDS: Phenytoin 50 MG Chewable Tablet G-TUBE SCH ×2 (09:16→22:51)
--- NOTE | 2018-04-18 09:59 | P.PNIM ---
Subjective Interval history: Alert and oriented x 2 at her baseline. She is more interactive today. Tired. Appears chronically ill. No fever or chills overnight. No nausea or vomiting. Tolerating tube feedings. Physical Exam Vital signs: Last Vital Signs Temp 99.7 F H 04/18/18 07:23 Pulse 106 H 04/18/18 07:23 Resp 34 H 04/18/18 07:23 BP 142/74 H 04/18/18 07:23 Pulse Ox 98 04/18/18 08:41 Intake & Output 04/16/18 04/17/18 04/18/18 04/19/18 06:59 06:59 06:59 06:59 Intake Total 1115 / 1115 3235 / 3235 100 / 100 Output Total 1000 / 1000 Balance 1115 / 1115 2235 / 2235 100 / 100 Weight 90.718 kg 83.3 kg Narrative: GENERAL: Elderly female , on not acute distress, mostly nonverbal. At baseline. SKIN: Focused skin assessment warm and dry. HEENT: PERRLA, EOMI. Dry mucous membranes. CARDIOVASCULAR: Regular rate and rhythm. No obvious murmurs to auscultation. Decreased capillary refill. RESPIRATORY: No obvious rhonchi or wheezing. Clear to auscultation. Breath sounds equal bilaterally. GASTROINTESTINAL: Abdomen soft, non-tender, nondistended. BS normal. G-tube in place. MUSCULOSKELETAL: Extremities without clubbing, cyanosis, or edema. No obvious deformities. NEUROLOGICAL: Sleepy. Alert and oriented x 2 at her baseline. H/o CVA w/ right weakness, no new focal neurologic deficits. Urinary Catheter Management Indwelling Temp Sensing Catheter: Cath placed during this visit: yes Urethral indwelling: No Insertion date: 04/16/18 Insertion time: 19:00 Results Labs CBC & Chem 7: 04/18/18 06:00 04/18/18 06:00 Labs: Microbiology 04/16/18 21:30 Catheter Tip - Central Venous Line Wound Culture - Preliminary S. aureus MRSA 04/16/18 19:30 Blood - Peripheral Aerobic Blood Culture - Preliminary gram positive cocci 04/16/18 19:30 Blood - Peripheral Anaerobic Blood Culture - Preliminary S. aureus MRSA 04/16/18 19:30 Blood - Peripheral Aerobic Blood Culture - Preliminary gram positive cocci 04/16/18 19:30 Blood - Peripheral Anaerobic Blood Culture - Preliminary gram positive cocci Assessment and Plan (1) Sepsis: Code(s): A41.9 - Sepsis, unspecified organism Status: Acute (2) PNA (pneumonia): Code(s): J18.9 - Pneumonia, unspecified organism Status: Acute (3) Hypernatremia: Code(s): E87.0 - Hyperosmolality and hypernatremia Status: Acute (4) Dementia: Code(s): F03.90 - Unspecified dementia without behavioral disturbance Status: Acute (5) C. difficile colitis: Code(s): A04.72 - Enterocolitis due to Clostridium difficile, not specified as recurrent Status: Acute Plan Sepsis . Fever and bacteremia 2/2 catheter infection MRSA bacteremia PICC line infection On admission With Temp 102.4, HR 106, Source-PNA/ MRSA bacteremia. Blood cultures, with MRSA . Repeat blood cx 04/17/18 Consult ID DC cefepime IV, Continue Vanco IV, follow up cultures IVF for hydration. PNA: CXR w/ right base infiltrate, DuoNeb prn, continue w/ IV Abx, monitor O2 sat. Hypernatremia: Na 157, previously 150 on last admit, D5 1/2NS, repeat Na q4h, free water boluses, telemetry. Neuro checks. Dementia: appears to be at baseline, mostly nonverbal but nods/shakes head to few questions, resume home medications. C Diff: from SNF, resume home Vanc PO, isolation. DVT Prophylaxis: SCD/Teds CM consulted for d/c planning as needed. Discussed with the patient, ICU nurse
--- NOTE | 2018-04-18 12:03 | MB ---
cc: César Smtih MD DATE: 04/17/2018 REQUESTING PHYSICIAN: Marina Yin MD REASON FOR VISIT: Bacteremia. HISTORY OF PRESENT ILLNESS: This is a 72-year-old black female who was admitted to the hospital from the assisted facility. The patient was brought to the emergency department because of fever. The patient has a history of chronic kidney disease. She has a history of PEG tube placement. She has also a history of cerebrovascular accident. In the emergency department, temperature was 102, heart rate was 117. Blood pressure was elevated. Blood cultures were taken, and all of the blood culture bottles have gram-positive cocci. Two of the bottles are identified as MRSA. The patient also had a central venous catheter removed, and a culture of the tip has MRSA as well. The patient is lying in bed and is in no acute distress, but she is very lethargic and barely opens eyes for me. I am unable to get any meaningful history from her. Information is obtained from the medical record. The patient's temperature has remained mostly elevated throughout the evening of 04/16/2018 and most of 04/17/2018, and early this morning, the maximum temperature was 101.6. The patient had a PICC line on presentation, which is a catheter that was removed. She was in the hospital in February and treated for sepsis. At the time, blood cultures were negative. The chest x-ray during prior hospitalization showed right-sided consolidation. PAST MEDICAL HISTORY: Chronic kidney disease, cerebrovascular accident, anxiety disorder, gastroesophageal reflux disease, congestive heart failure, hypertension, irritable bowel syndrome, schizoaffective disorder, dementia, history of mastectomy, history of percutaneous endoscopic gastrostomy tube. ALLERGIES: ASPIRIN. MEDICATIONS: 1. Cefepime. 2. Oral vancomycin. 3. Pepcid. 4. Keppra. 5. Lactulose. 6. Remeron. 7. Protonix. 8. Dilantin. 9. Whitney-Colace. SOCIAL HISTORY: Unable to obtain. The patient is nonverbally responsive. FAMILY HISTORY: Unable to obtain. REVIEW OF SYSTEMS: Unable to obtain. PHYSICAL EXAMINATION: GENERAL: This is a well-developed female who is very lethargic and appears chronically ill. VITAL SIGNS: Temperature 99.7, BP 142/74, respirations 20, heart rate 106. HEENT: Head is atraumatic. Extraocular movements cannot be fully assessed. No icterus. No conjunctival erythema. The sclerae appears pale. Oropharynx unable to fully assess as the patient cannot cooperate. The mucosa is moist. NECK: No adenopathy or swelling. LUNGS: Decreased breath sounds bilaterally. HEART: Regular S1 and S2. No murmurs heard. ABDOMEN: Bowel sounds present. Soft, nontender. EXTREMITIES: No clubbing, cyanosis, or edema. Muscle wasting apparent at the lower extremities. SKIN: No rash. NEUROLOGIC: Unable to assess. PSYCHIATRIC: Unable to assess. LABORATORY DATA: WBC 6.7, platelets 77, hemoglobin 9.1. BUN 21, creatinine 1.34, estimated GFR of 47, sodium 147. AST 88, ALT 47. IMPRESSION: 1. Fever and bacteremia secondary to catheter infection, methicillin-resistant Staphylococcus aureus. 2. PICC line infection. 3. Chronic kidney disease. RECOMMENDATIONS: 1. Continue vancomycin. 2. Discontinue cefepime. 3. Monitor sensitivity of the MRSA. 4. Monitor temperature. 5. Monitor repeat blood culture. 6. Monitor clinical response to antibiotics. Thank you for this consultation. I will follow the patient's progress and make further recommendations on followup. MD BRYANT Matos/junito , 11:37 AM , 11:49 AM
[2018-04-18] MEDS: Dextrose 5%/NaCl 0.45% Inj 1,000 ML IV.CONT SCH (14:19)
[2018-04-18] MEDS: Vancomycin Inj 1,500 MG in Sodium Chlor 0.9% Inj 500 ML IV.SIG SCH (16:47)
[2018-04-18] MEDS: Acetaminophen 325 MG Tablet PO PRN (23:11)
[2018-04-19] MEDS: Chlorhexidine Gluconate 2% 1 Pack (2 Cloths) TOPICAL SCH (04:00)
[2018-04-19] MEDS: Phenytoin 50 MG Chewable Tablet G-TUBE SCH ×2 (10:13→21:54)
[2018-04-19] MEDS: Senna/Docusate Sodium 8.6/50 MG Tablet PO SCH (10:14)
[2018-04-19] MEDS: Pantoprazole Inj 40 MG Vial IV.PUSH SCH (10:14)
[2018-04-19] MEDS: Famotidine PF Inj 20 MG/2 ML Vial IV.PUSH SCH ×2 (10:15→21:56)
[2018-04-19] MEDS: Famotidine 20 MG Tablet PO SCH ×2 (10:15→21:54)
--- NOTE | 2018-04-19 10:51 | P.DIET ---
Nutritional Evaluation Type of nutrition evaluation: initial Nutrition consult regarding: Tube Feeding Objective - Diagnosis Sepsis, PNA, Dementia - Objective % IBW: 142 (IBW: 130lbs) Body Weight Used for Calculations: Upper end of IBW (65kg) Energy Needs - Lower Range (kCal/kg): 28 Energy Needs - Upper Range (kCal/kg): 33 Lower Limit kCal/kg (kCals): 1,820 Upper Limit kCal/kg (kCals): 2,145 Lower Limit Protein Factor (Grams per Kg): 1.1 Upper Limit Protein Factor (Grams per Kg): 1.3 Lower Protein Needs (Protein): 72 Upper Protein Needs (Protein): 85 Dietitian Reviewed in Medical Record: Current diet, Curent medications, Intake & Output, Labs, Medical history, Tube feeding Diet Order: NPO Objective Comments: PMH: CKD, CVA, FTT, GERD, CHF, HTN, hypokalemia, IBS, schizoaffective disorder, vascular dementia, HH, dysphasia Pt s/p PEG Cr 1.34 Assessment Assessment: Pt at nutritional risk r/t current clinical status and need for a TF for nutrition support. Pt with dysphagia, has PEG. Pt's nutritional needs as assessed above. TF Nepro with goal rate 60ml/hr per MD. To best meet pt's nutritional needs, recommend a goal rate of 45ml/hr to provide 1944kcals, 88gms protein and 785mls free water. Will monitor TF tolerance, clinical course. Recommendations: TF Nepro with goal rate 45ml/hr recommended. Dietitian to Monitor: Lab values, Electrolytes, Renal labs, Intake & Output, Tube feeding tolerance, Weight change, Medical course
[2018-04-19] MEDS: Dextrose 5%/NaCl 0.45% Inj 1,000 ML IV.CONT SCH (13:35)
--- NOTE | 2018-04-19 14:19 | P.PNIM ---
Subjective Interval history: The patient is in bed sleepy. However she is awaking easily. At baseline mentation. No nausea or vomiting. Tolerates tube feedings. No fever or chills. Physical Exam Vital signs: Last Vital Signs Temp 98.7 F 04/19/18 12:00 Pulse 104 H 04/19/18 12:00 Resp 18 04/19/18 12:00 BP 118/63 04/19/18 12:00 Pulse Ox 94 L 04/19/18 12:00 Intake & Output 04/17/18 04/18/18 04/19/18 04/20/18 06:59 06:59 06:59 06:59 Intake Total 1115 / 1115 3235 / 3235 2115 / 2115 1100 / 1100 Output Total 1000 / 1000 1000 / 1000 Balance 1115 / 1115 2235 / 2235 1115 / 1115 1100 / 1100 Weight 90.718 kg 83.3 kg 83.3 kg Narrative: GENERAL: Elderly female , on not acute distress, mostly nonverbal. At baseline. SKIN: Focused skin assessment warm and dry. HEENT: PERRLA, EOMI. Dry mucous membranes. CARDIOVASCULAR: Regular rate and rhythm. No obvious murmurs to auscultation. Decreased capillary refill. RESPIRATORY: No obvious rhonchi or wheezing. Clear to auscultation. Breath sounds equal bilaterally. GASTROINTESTINAL: Abdomen soft, non-tender, nondistended. BS normal. G-tube in place. MUSCULOSKELETAL: Extremities without clubbing, cyanosis, or edema. No obvious deformities. NEUROLOGICAL: Sleepy. Alert and oriented x 2 at her baseline. H/o CVA w/ right weakness, no new focal neurologic deficits. Urinary Catheter Management Indwelling Temp Sensing Catheter: Cath placed during this visit: yes Urethral indwelling: No Insertion date: 04/16/18 Insertion time: 19:00 Results Labs CBC & Chem 7: 04/19/18 15:26 04/19/18 15:26 Labs: Microbiology 04/18/18 11:49 Blood - Peripheral Aerobic Blood Culture - Preliminary No growth in 1 day 04/18/18 11:49 Blood - Peripheral Anaerobic Blood Culture - Preliminary No growth in 1 day 04/18/18 06:00 Blood - Peripheral Aerobic Blood Culture - Preliminary No growth in 1 day 04/18/18 06:00 Blood - Peripheral Anaerobic Blood Culture - Preliminary No growth in 1 day 04/16/18 19:30 Blood - Peripheral Aerobic Blood Culture - Final S. aureus MRSA 04/16/18 19:30 Blood - Peripheral Anaerobic Blood Culture - Final S. aureus MRSA 04/16/18 19:30 Blood - Peripheral Aerobic Blood Culture - Final S. aureus MRSA 04/16/18 19:30 Blood - Peripheral Anaerobic Blood Culture - Final S. aureus MRSA 04/16/18 21:30 Catheter Tip - Central Venous Line Wound Culture - Final S. aureus MRSA Assessment and Plan (1) Sepsis: Code(s): A41.9 - Sepsis, unspecified organism Status: Acute (2) PNA (pneumonia): Code(s): J18.9 - Pneumonia, unspecified organism Status: Acute (3) Hypernatremia: Code(s): E87.0 - Hyperosmolality and hypernatremia Status: Acute (4) Dementia: Code(s): F03.90 - Unspecified dementia without behavioral disturbance Status: Acute (5) C. difficile colitis: Code(s): A04.72 - Enterocolitis due to Clostridium difficile, not specified as recurrent Status: Acute Plan Sepsis . Fever and bacteremia 2/2 catheter infection MRSA bacteremia PICC line infection On admission With Temp 102.4, HR 106, Source-PNA/ MRSA bacteremia. Blood cultures, with MRSA . Repeat blood cx 04/17/18 Consult ID DC cefepime IV, Continue Vanco IV, follow up cultures IVF for hydration. PNA: CXR w/ right base infiltrate, DuoNeb prn, continue w/ IV Abx, monitor O2 sat. Hypernatremia: Na 157, previously 150 on last admit, D5 1/2NS, repeat Na q4h, free water boluses, telemetry. Neuro checks. Dementia: appears to be at baseline, mostly nonverbal but nods/shakes head to few questions, resume home medications. C Diff: from SNF, resume home Vanc PO, isolation. DVT Prophylaxis: SCD/Teds CM consulted for d/c planning as needed. Discussed with the patient, nurse Discharge plan: On IV antibiotics for MRSA bacteremia due to PICC line infection discharge when cleared by infectious disease. Needs rehab
[2018-04-19] MEDS: Vancomycin Inj 1,500 MG in Sodium Chlor 0.9% Inj 500 ML IV.SIG SCH (15:22)
[2018-04-19 16:07] LABS: Hematocrit 26.1 % (35.0-46.0); Hemoglobin 8.5 gm/dL (11.6-15.3); Mean Corpuscular HGB Conc 32.4 % (32.0-36.0); Mean Corpuscular Hemoglobin 30.6 pg (27.0-34.0); Mean Corpuscular Volume 94.3 fL (80.0-100.0); Mean Platelet Volume 12.1 fL (7.0-11.0); Platelet Count 97 th/mm3 (150-450); Red Blood Count 2.77 mil/mm3 (4.00-5.30); Red Cell Distribution Width 17.4 % (11.6-17.2); White Blood Count 5.1 th/mm3 (4.0-11.0)
--- NOTE | 2018-04-19 16:25 | P.PNID ---
Subjective Remarks: Patient is more alert. She is more awake. Nods her head questions and indicates that she feels okay. Afebrile. Blood culture and catheter culture has MRSA. 72-year-old black female who [facility] The patient was brought to the emergency department because of fever. The patient has a history of chronic kidney disease. She has a history of PEG tube placement. She has also a history of cerebrovascular accident. In the emergency department, temperature was 102, heart rate was 117. Blood pressure was elevated. Past Medical History: PAST MEDICAL HISTORY: Chronic kidney disease, cerebrovascular accident, anxiety disorder, gastroesophageal reflux disease, congestive heart failure, hypertension, irritable bowel syndrome, schizoaffective disorder, dementia, history of mastectomy, history of percutaneous endoscopic gastrostomy tube. Allergies/Adverse Reactions: Allergies aspirin Allergy (Severe, Verified 04/16/18 19:27) Hives *MDRO Multi-Drug Resistant Organism Adverse Reaction (Unknown, Uncoded 04/16/18 19:36) Cleared 05/2016 MRSA (wound & sputum) - 01/2012 *Cleared - MRSA PCR (nares) NEGATIVE on & 06/25/16* Objective Vital Signs 04/18/18 17:19 04/18/18 20:00 04/19/18 00:00 Temperature 99.6 F 101.1 F H 98.0 F Pulse Rate 109 H 114 H 104 H Respiratory Rate 18 22 18 Blood Pressure 176/73 H 118/56 L 112/57 L Pulse Oximetry 96 97 98 04/19/18 04:00 04/19/18 08:00 04/19/18 12:00 Temperature 99.7 F H 99 F 98.7 F Pulse Rate 109 H 106 H 104 H Respiratory Rate 20 20 18 Blood Pressure 113/57 L 115/57 L 118/63 Pulse Oximetry 96 93 L 94 L Intake & Output 04/18/18 04/19/18 04/19/18 18:59 06:59 18:59 Intake Total 1500 / 1500 615 / 615 1100 / 1100 Output Total 1000 / 1000 Balance 1500 / 1500 -385 / -385 1100 / 1100 Weight 83.3 kg Intake: IV 1000 / 1000 615 / 615 1100 / 1100 D5W/1/2 NS Inj 1,000 ML @ 50 900 / 900 1000 / 1000 mls/hr IV.CONT .Q20H [facility] Rx#: [id number] Maxipime Inj 1,000 MG In NS Inj 100 / 100 100 / 100 100 / 100 100 ML @ 200 mls/hr IV.SIG Q12H [facility] Rx#:[id number] Vancomycin Inj 1,500 MG In NS 515 / 515 Inj 500 ML @ 250 mls/hr IV.SIG Q24H [facility] Rx#:[id number] Tube Feeding 500 / 500 Output: Urine Amount (Catheter) 1000 / 1000 Indwelling Temp Sensing 1000 / 1000 Catheter Other: Date of Last Bowel Movement 04/18/18 04/19/18 04/19/18 04/18/18 11:49 Blood - Peripheral Aerobic Blood Culture - Preliminary No growth in 1 day 04/18/18 11:49 Blood - Peripheral Anaerobic Blood Culture - Preliminary No growth in 1 day 04/18/18 06:00 Blood - Peripheral Aerobic Blood Culture - Preliminary No growth in 1 day 04/18/18 06:00 Blood - Peripheral Anaerobic Blood Culture - Preliminary No growth in 1 day 04/16/18 19:30 Blood - Peripheral Aerobic Blood Culture - Final S. aureus MRSA 04/16/18 19:30 Blood - Peripheral Anaerobic Blood Culture - Final S. aureus MRSA 04/16/18 19:30 Blood - Peripheral Aerobic Blood Culture - Final S. aureus MRSA 04/16/18 19:30 Blood - Peripheral Anaerobic Blood Culture - Final S. aureus MRSA 04/16/18 21:30 Catheter Tip - Central Venous Line Wound Culture - Final S. aureus MRSA Lab - Hematology Results 04/18/18 04/19/18 06:00 15:26 WBC 6.7 5.1 RBC 2.98 L 2.77 L Hgb 9.1 L 8.5 L Hct 28.5 L 26.1 L MCV 95.8 94.3 MCH 30.4 30.6 MCHC 31.8 L 32.4 RDW 17.3 H 17.4 H Plt Count 77 L 97 L MPV 12.0 H 12.1 H Prelim Diff (Auto) Slide review pending Slide review pending Neut % (Auto) 59.5 Lymph % (Auto) 19.8 [place] % (Auto) 9.4 H Eos % (Auto) 11.1 H Baso % (Auto) 0.2 Neut # (Auto) 4.0 Lymph # (Auto) 1.3 [place] # (Auto) 0.6 Eos # (Auto) 0.7 H Baso # (Auto) 0.0 WBC Differential Manual diff final Seg Neuts % (Manual) 69 Band Neuts % (Manual) 11 H Lymphocytes % (Manual) 11 Monocytes % (Manual) 1 Eosinophils % (Manual) 7 H Basophils % (Manual) 1 Abs Neuts (Manual) 5.4 Differential Comment . . Platelet Estimate Low L Platelet Morphology Normal Lab - Chemistry Results 04/16/18 04/18/18 21:30 06:00 Sodium 157 H* 147 H Potassium 3.9 4.1 Chloride 127 H 120 H Carbon Dioxide 26.5 19.9 L Anion Gap 4 L 7 BUN 28 H 21 H Creatinine 1.39 H 1.34 H Estimated GFR 45 L 47 L Random Glucose 94 81 Calcium 7.5 L 7.7 L Total Bilirubin 0.9 AST 78 H ALT 53 Alkaline Phosphatase 178 H Total Protein 7.7 Albumin 2.0 L Imaging: ITS Impressions Chest X-Ray 04/16/18 18:31 CONCLUSION: Mild right base infiltrate Physical Exam: GENERAL: Awake and alert. No acute distress. HEENT: Head is atraumatic. Extraocular movements grossly intact no icterus. No conjunctival erythema. The sclerae appears pale. Oral mucosa is moist. NECK: No adenopathy or swelling. LUNGS: Decreased breath sounds bilaterally. HEART: Regular S1 and S2. No murmurs heard. ABDOMEN: Bowel sounds present. Soft, nontender. EXTREMITIES: No clubbing, cyanosis, or edema. Muscle wasting apparent at the lower extremities. SKIN: No rash. NEUROLOGIC: No gross focal finding. PSYCHIATRIC: Calm. Assessment and Plan - Plan IMPRESSION: 1. Fever and bacteremia secondary to catheter infection, MRSA. 2. PICC line infection. 3. Chronic kidney disease. RECOMMENDATIONS: 1. Continue vancomycin. 2. Stop cefepime. 3. Follow the repeat blood culture. 3. Plan on giving 10 days of IV antibiotics for the MRSA.
[2018-04-19 16:33] LABS: Calcium 7.2 mg/dL (8.5-10.1); Carbon Dioxide 22.9 meq/L (21.0-32.0); Potassium 3.3 meq/L (3.5-5.1)
[2018-04-19 16:43] LABS: Albumin 1.8 g/dL (3.4-5.0)
[2018-04-19 16:47] LABS: Eosinophils 15 % (0-4); Lymphocytes 13 % (9-44); Monocytes 8 % (0-8)
[2018-04-19 16:48] LABS: Platelet Morphology Normal (Normal); RBC Morphology Normal (Normal)
[2018-04-20] MEDS: Senna/Docusate Sodium 8.6/50 MG Tablet PO SCH (00:40)
[2018-04-20] MEDS: Chlorhexidine Gluconate 2% 1 Pack (2 Cloths) TOPICAL SCH (04:00)
[2018-04-20] MEDS: Dextrose 5%/NaCl 0.45% Inj 1,000 ML IV.CONT SCH ×2 (07:15→21:11)
[2018-04-20] MEDS: Phenytoin 50 MG Chewable Tablet G-TUBE SCH ×2 (09:00→21:08)
--- NOTE | 2018-04-20 09:16 | P.PNIM ---
Subjective Interval history: F/u catheter infection. Patient confused but answering questions and following simple commands. She is contracted. Physical Exam Vital signs: Last Vital Signs Temp 98.2 F 04/20/18 04:00 Pulse 101 H 04/20/18 04:00 Resp 18 04/20/18 04:00 BP 125/67 04/20/18 04:00 Pulse Ox 99 04/20/18 04:00 Intake & Output 04/18/18 04/19/18 04/20/18 04/21/18 06:59 06:59 06:59 06:59 Intake Total 3235 / 3235 2115 / 2115 2115 / 2115 Output Total 1000 / 1000 1000 / 1000 2300 / 2300 Balance 2235 / 2235 1115 / 1115 -185 / -185 Weight 83.3 kg 83.3 kg Narrative: GENERAL: Elderly female , on not acute distress, mostly nonverbal. At baseline. SKIN: Focused skin assessment warm and dry. CARDIOVASCULAR: Regular rate and rhythm. No obvious murmurs to auscultation. Decreased capillary refill. RESPIRATORY: No obvious rhonchi or wheezing. Clear to auscultation. Breath sounds equal bilaterally. GASTROINTESTINAL: Abdomen soft, non-tender, nondistended. BS normal. G-tube in place. MUSCULOSKELETAL: Extremities without clubbing, cyanosis, or edema. No obvious deformities. NEUROLOGICAL: Alert and oriented x 2 at her baseline. H/o CVA w/ right weakness , no new focal neurologic deficits. Urinary Catheter Management Indwelling Temp Sensing Catheter: Cath placed during this visit: yes Urethral indwelling: No Insertion date: 04/16/18 Insertion time: 19:00 Results Labs CBC & Chem 7: 04/19/18 15:26 04/19/18 15:26 Labs: Microbiology 04/18/18 11:49 Blood - Peripheral Aerobic Blood Culture - Preliminary No growth in 1 day 04/18/18 11:49 Blood - Peripheral Anaerobic Blood Culture - Preliminary No growth in 1 day 04/18/18 06:00 Blood - Peripheral Aerobic Blood Culture - Preliminary No growth in 1 day 04/18/18 06:00 Blood - Peripheral Anaerobic Blood Culture - Preliminary No growth in 1 day 04/16/18 19:30 Blood - Peripheral Aerobic Blood Culture - Final S. aureus MRSA 04/16/18 19:30 Blood - Peripheral Anaerobic Blood Culture - Final S. aureus MRSA 04/16/18 19:30 Blood - Peripheral Aerobic Blood Culture - Final S. aureus MRSA 04/16/18 19:30 Blood - Peripheral Anaerobic Blood Culture - Final S. aureus MRSA 04/16/18 21:30 Catheter Tip - Central Venous Line Wound Culture - Final S. aureus MRSA Imaging Imaging: ITS Impressions Chest X-Ray 04/16/18 18:31 CONCLUSION: Mild right base infiltrate Assessment and Plan (1) Sepsis: Code(s): A41.9 - Sepsis, unspecified organism Status: Acute (2) PNA (pneumonia): Code(s): J18.9 - Pneumonia, unspecified organism Status: Acute (3) Hypernatremia: Code(s): E87.0 - Hyperosmolality and hypernatremia Status: Acute (4) Dementia: Code(s): F03.90 - Unspecified dementia without behavioral disturbance Status: Acute (5) C. difficile colitis: Code(s): A04.72 - Enterocolitis due to Clostridium difficile, not specified as recurrent Status: Acute Plan Sepsis . Fever and bacteremia 2/2 catheter infection MRSA bacteremia PICC line infection status post removal On admission With Temp 102.4, HR 106, Source-PNA/ MRSA bacteremia. Blood cultures, with MRSA . Repeat blood cx 04/18/18 NGTD Consult ID DC cefepime IV, Continue Vanco IV for 10 days October for, follow up cultures IVF for hydration. PNA: CXR w/ right base infiltrate, DuoNeb prn, continue w/ IV Abx, monitor O2 sat. Hypernatremia: Na 157, previously 150 on last admit, D5 1/2NS, repeat Na q4h, free water boluses, telemetry. Neuro checks. Dementia: appears to be at baseline, mostly nonverbal but nods/shakes head to few questions, resume home medications. C Diff: from SNF, resume home Vanc PO, isolation. DVT Prophylaxis: SCD/Teds CM consulted for d/c planning as needed. Discharge plan: On IV antibiotics for MRSA bacteremia due to PICC line infection discharge when cleared by infectious disease. Needs rehab Repeat labs today CBC, BMP, INR and Dilantin, if unremarkable will discharge patient back to rehab
[2018-04-20] MEDS ORDERED: Warfarin Consult Pharmacy OTHER PRN (09:24)
[2018-04-20] MEDS ORDERED: Acetaminophen 325 MG Tablet G-TUBE PRN (09:27)
[2018-04-20] MEDS: Senna/Docusate Sodium 8.6/50 MG Tablet G-TUBE SCH ×2 (11:08→23:56)
--- NOTE | 2018-04-20 11:31 | P.PNID ---
Subjective Remarks: Patient is sleeping and will not arouse for me. Discussed with RN. Reportedly was awake earlier and is using abusive language towards the staff. Afebrile. Repeat blood culture is negative day 2. Blood culture and catheter culture has MRSA. 72-year-old black female who was admitted to the hospital from the senior care facility. The patient was brought to the emergency department because of fever. The patient has a history of chronic kidney disease. She has a history of PEG tube placement. She has also a history of cerebrovascular accident. In the emergency department, temperature was 102, heart rate was 117. Blood pressure was elevated. Past Medical History: PAST MEDICAL HISTORY: Chronic kidney disease, cerebrovascular accident, anxiety disorder, gastroesophageal reflux disease, congestive heart failure, hypertension, irritable bowel syndrome, schizoaffective disorder, dementia, history of mastectomy, history of percutaneous endoscopic gastrostomy tube. Allergies/Adverse Reactions: Allergies aspirin Allergy (Severe, Verified 04/16/18 19:27) Hives *MDRO Multi-Drug Resistant Organism Adverse Reaction (Unknown, Uncoded 04/16/18 19:36) Cleared 05/2016 MRSA (wound & sputum) - 01/2012 *Cleared - MRSA PCR (nares) NEGATIVE on & 06/25/16* Objective Vital Signs 04/19/18 12:00 04/19/18 16:00 04/19/18 17:15 Temperature 98.7 F 98.3 F Pulse Rate 104 H 113 H 112 H Respiratory Rate 18 18 Blood Pressure 118/63 124/70 Pulse Oximetry 94 L 93 L 04/19/18 20:00 04/20/18 00:00 04/20/18 04:00 Temperature 99.6 F 98.8 F 98.2 F Pulse Rate 113 H 105 H 101 H Respiratory Rate 18 18 18 Blood Pressure 140/60 132/61 125/67 Pulse Oximetry 97 100 99 Intake & Output 04/19/18 04/20/18 04/20/18 18:59 06:59 18:59 Intake Total 2115 / 2115 Output Total 900 / 900 1400 / 1400 Balance 1215 / 1215 -1400 / -1400 Intake: IV 1615 / 1615 D5W/1/2 NS Inj 1,000 ML @ 50 1000 / 1000 mls/hr IV.CONT .Q20H [facility] Rx#: [id number] Maxipime Inj 1,000 MG In NS Inj 100 / 100 100 ML @ 200 mls/hr IV.SIG Q12H [facility] Rx#:[id number] Vancomycin Inj 1,500 MG In NS 515 / 515 Inj 500 ML @ 250 mls/hr IV.SIG Q24H [facility] Rx#:[id number] Oral 500 / 500 Output: Urine 900 / 900 1400 / 1400 Other: Date of Last Bowel Movement 04/19/18 04/20/18 # Bowel Movements 1 # Incontinent Bowel Movements 3 04/18/18 11:49 Blood - Peripheral Aerobic Blood Culture - Preliminary No growth in 2 days 04/18/18 11:49 Blood - Peripheral Anaerobic Blood Culture - Preliminary No growth in 2 days 04/18/18 06:00 Blood - Peripheral Aerobic Blood Culture - Preliminary No growth in 2 days 04/18/18 06:00 Blood - Peripheral Anaerobic Blood Culture - Preliminary No growth in 2 days 04/16/18 19:30 Blood - Peripheral Aerobic Blood Culture - Final S. aureus MRSA 04/16/18 19:30 Blood - Peripheral Anaerobic Blood Culture - Final S. aureus MRSA 04/16/18 19:30 Blood - Peripheral Aerobic Blood Culture - Final S. aureus MRSA 04/16/18 19:30 Blood - Peripheral Anaerobic Blood Culture - Final S. aureus MRSA 04/16/18 21:30 Catheter Tip - Central Venous Line Wound Culture - Final S. aureus MRSA Lab - Hematology Results 04/19/18 15:26 WBC 5.1 RBC 2.77 L Hgb 8.5 L Hct 26.1 L MCV 94.3 MCH 30.6 MCHC 32.4 RDW 17.4 H Plt Count 97 L MPV 12.1 H Prelim Diff (Auto) Slide review pending WBC Differential Manual diff final Seg Neuts % (Manual) 58 Band Neuts % (Manual) 6 Lymphocytes % (Manual) 13 Monocytes % (Manual) 8 Eosinophils % (Manual) 15 H Abs Neuts (Manual) 3.3 Differential Comment . Platelet Estimate Low L Platelet Morphology Normal RBC Morphology Normal Lab - Chemistry Results 04/19/18 15:26 Sodium 151 H Potassium 3.3 L D Chloride 121 H Carbon Dioxide 22.9 Anion Gap 7 BUN 15 Creatinine 1.26 H Estimated GFR 51 L Random Glucose 106 Calcium 7.2 L* Calcium Adj for Albumin 9.0 Albumin 1.8 L Imaging: ITS Impressions Chest X-Ray 04/16/18 18:31 CONCLUSION: Mild right base infiltrate Physical Exam: GENERAL: Sleepy. No acute distress. HEENT: Head is atraumatic. Extraocular movements grossly intact no icterus. No conjunctival erythema. The sclerae appears pale. Oral mucosa is moist. NECK: No adenopathy or swelling. LUNGS: Decreased breath sounds. HEART: Irregular S1 and S2. No murmurs heard. ABDOMEN: Bowel sounds present. Soft, nontender. EXTREMITIES: No clubbing, cyanosis, or edema. Muscle wasting apparent at the lower extremities. SKIN: No rash. NEUROLOGIC: No gross focal finding. PSYCHIATRIC: Calm. Assessment and Plan - Plan IMPRESSION: 1. Fever and bacteremia secondary to catheter infection, MRSA. 2. PICC line infection. PICC line was removed. 3. Chronic kidney disease. RECOMMENDATIONS: Continue vancomycin IV until May 01, 2018.
[2018-04-20] MEDS: Vancomycin Inj 1,500 MG in Sodium Chlor 0.9% Inj 500 ML IV.SIG SCH (15:08)
--- NOTE | 2018-04-20 15:29 | P.DCO ---
Post Hospital Infusion Therapy - Infusion Therapy Location of Infusion Therapy: [facility] Infusion Therapy Order - Patient Information Patient Weight: 83.3 kg - Administer Medication Vancomycin Dose: 1.5 grams IV Directions: q 24 hours Stop Treatment: 05/01/18 - Additional Information Venous Access: PICC Line Additional Instructions: [x] Peripheral flush and dressing changes per protocol [x] Implanted port and central headline writer: * Implanted port: 10 ml Normal Saline followed by 5 ml Heparin 100 units/ml Heparin flush after each use and monthly to maintain. [] May leave port accessed during therapy. [] May leave peripheral site accessed for duration of therapy. [x] If patient has SOB or respiratory distress, check oxygen saturation. If less than 90% or clinical signs of respiratory distress, administer oxygen at 2 L/min. via nasal cannula and notify physician. [x] Anaphylaxis/Reaction orders: * Stop infusion. * Keep IV line open with saline flush. * Notify physician. * Monitor vital signs every 15 minutes until symptoms resolve. * Check Oxygen saturation; Oxygen at 2 L/min. via nasal cannula if less than 90% or clinical signs of respiratory distress. * Administer diphenhydramine (Benadryl) 25 mg IV STAT, (unless patient has received as pre-med). May repeat once, if necessary. * Solu-Cortef 250 mg IVP over 30-60 seconds, use 100 mg vials for each dissolution. * Epinephrine (1mg/1 ml) 0.3 mg subcutaneously or IVP now with any signs of respiratory distress. * Check with physician for new additional pre-med orders if patient is re- challenged or re-treated. [x] May remove PICC line when treatment complete, after confirming with Physician. [x] If the patient is admitted to the hospital, the ED, or transferred via [facility] , complete transfer form including medication reconciliation order sheet. Additional Information: BMP on 04/22, 04/24 and 04/27. Vancomycin trough on 04/24. Call with vancomycin level greater than 20 or creatinine greater than 2.0 Hold vancomycin if creatinine greater than 2.0 Dr. Smith Fax number [phone]. - Patient Information Allergies aspirin Allergy (Severe, Verified 04/16/18 19:27) Hives *MDRO Multi-Drug Resistant Organism Adverse Reaction (Unknown, Uncoded 12/20/18 19:36) Cleared 05/2016 MRSA (wound & sputum) - 01/2012 *Cleared - MRSA PCR (nares) NEGATIVE on & 06/25/16*
[2018-04-20] MEDS ORDERED: Pharmacy Ordered Lab Info OTHER ONE (15:45)
[2018-04-20 15:48] LABS: Baso % (Auto) 0.2 % (0.0-2.0); Eos # (Auto) 0.7 th/mm3 (0.0-0.4); Eos % (Auto) 13.6 % (0.0-4.0); Lymph # (Auto) 1.2 th/mm3 (1.0-4.8); Lymph % (Auto) 24.2 % (9.0-44.0); Mono # (Auto) 0.7 th/mm3 (0.0-0.9); Mono % (Auto) 14.1 % (0.0-8.0); Neut # (Auto) 2.5 th/mm3 (1.8-7.7); Neut % (Auto) 47.9 % (16.0-70.0)
[2018-04-20] MEDS: Carvedilol 6.25 MG Tablet G-TUBE SCH (21:07)
[2018-04-20] MEDS: Famotidine 20 MG Tablet G-TUBE SCH (21:07)
[2018-04-21] MEDS: Dextrose 5%/NaCl 0.45% Inj 1,000 ML IV.CONT SCH ×3 (03:20→22:15)
[2018-04-21] MEDS: Chlorhexidine Gluconate 2% 1 Pack (2 Cloths) TOPICAL SCH (09:52)
[2018-04-21] MEDS: Senna/Docusate Sodium 8.6/50 MG Tablet G-TUBE SCH ×2 (10:04→22:14)
[2018-04-21] MEDS: Ferrous Sulfate 325 MG Tablet PO SCH (10:04)
[2018-04-21] MEDS: Famotidine 20 MG Tablet G-TUBE SCH ×2 (10:04→22:14)
[2018-04-21] MEDS: Carvedilol 6.25 MG Tablet G-TUBE SCH (10:11)
[2018-04-21] MEDS: Phenytoin 50 MG Chewable Tablet G-TUBE SCH ×2 (10:11→22:13)
--- NOTE | 2018-04-21 14:36 | P.PNIM ---
Subjective Interval history: Follow-up catheter infection. Refusing lab draw and picc. Unable to contact family members Physical Exam Vital signs: Last Vital Signs Temp 98.1 F 04/21/18 11:42 Pulse 95 H 04/21/18 12:00 Resp 20 04/21/18 11:42 BP 157/79 H 04/21/18 11:42 Pulse Ox 95 04/21/18 11:42 Intake & Output 04/19/18 04/20/18 04/21/18 04/22/18 06:59 06:59 06:59 06:59 Intake Total 2115 / 2115 2115 / 2115 2515 / 2515 Output Total 1000 / 1000 2300 / 2300 1900 / 1900 Balance 1115 / 1115 -185 / -185 615 / 615 Weight 83.3 kg 84.4 kg Narrative: GENERAL: Elderly female , on not acute distress, mostly nonverbal. At baseline. SKIN: Focused skin assessment warm and dry. CARDIOVASCULAR: Regular rate and rhythm. No obvious murmurs to auscultation. Decreased capillary refill. RESPIRATORY: No obvious rhonchi or wheezing. Clear to auscultation. Breath sounds equal bilaterally. GASTROINTESTINAL: Abdomen soft, non-tender, nondistended. BS normal. G-tube in place. MUSCULOSKELETAL: Extremities without clubbing, cyanosis, or edema. No obvious deformities. NEUROLOGICAL: Alert and oriented x 2 at her baseline. H/o CVA w/ right weakness , no new focal neurologic deficits. Urinary Catheter Management Indwelling Temp Sensing Catheter: Cath placed during this visit: yes Urethral indwelling: No Insertion date: 04/16/18 Insertion time: 19:00 Results Labs CBC & Chem 7: 04/19/18 15:26 04/19/18 15:26 Labs: Microbiology 04/18/18 11:49 Blood - Peripheral Aerobic Blood Culture - Preliminary No growth in 3 days 04/18/18 11:49 Blood - Peripheral Anaerobic Blood Culture - Preliminary No growth in 3 days 04/18/18 06:00 Blood - Peripheral Aerobic Blood Culture - Preliminary No growth in 3 days 04/18/18 06:00 Blood - Peripheral Anaerobic Blood Culture - Preliminary No growth in 3 days Assessment and Plan (1) Sepsis: Code(s): A41.9 - Sepsis, unspecified organism Status: Acute (2) PNA (pneumonia): Code(s): J18.9 - Pneumonia, unspecified organism Status: Acute (3) Hypernatremia: Code(s): E87.0 - Hyperosmolality and hypernatremia Status: Acute (4) Dementia: Code(s): F03.90 - Unspecified dementia without behavioral disturbance Status: Acute (5) C. difficile colitis: Code(s): A04.72 - Enterocolitis due to Clostridium difficile, not specified as recurrent Status: Acute Plan Sepsis . Fever and bacteremia 2/2 catheter infection MRSA bacteremia PICC line infection status post removal On admission With Temp 102.4, HR 106, Source-PNA/ MRSA bacteremia. Blood cultures, with MRSA . Repeat blood cx 04/18/18 NGTD Consult ID DC cefepime IV, Continue Vanco IV for 10 days til 05/01/18, follow up cultures Consult IR for PICC line insertion under anesthesia when consent obtained PNA: CXR w/ right base infiltrate, DuoNeb prn, continue w/ IV Abx, monitor O2 sat. Hypernatremia: Na 157, previously 150 on last admit, D5 1/2NS, repeat Na q4h, free water boluses, telemetry. Neuro checks. Dementia: appears to be at baseline, mostly nonverbal but nods/shakes head to few questions, resume home medications. C Diff: from SNF, resume home Vanc PO, isolation. DVT Prophylaxis: SCD/Teds CM consulted for d/c planning as needed. Discharge plan: On IV antibiotics for MRSA bacteremia due to PICC line infection discharge when cleared by infectious disease. Needs rehab Repeat labs today CBC, BMP, INR and Dilantin, if unremarkable will discharge patient back to rehab
[2018-04-21] MEDS ORDERED: Pharmacy Ordered Lab Info OTHER ONE (15:45)
[2018-04-21] MEDS: Vancomycin Inj 1,500 MG in Sodium Chlor 0.9% Inj 500 ML IV.SIG SCH (16:30)
[2018-04-21] MEDS: Carvedilol 12.5 MG Tablet G-TUBE SCH (22:14)
[2018-04-22 04:07] LABS: Baso % (Auto) 0.2 % (0.0-2.0); Eos # (Auto) 0.8 th/mm3 (0.0-0.4); Eos % (Auto) 12.4 % (0.0-4.0); Hematocrit 24.9 % (35.0-46.0); Hemoglobin 7.9 gm/dL (11.6-15.3); Lymph # (Auto) 1.5 th/mm3 (1.0-4.8); Mean Corpuscular HGB Conc 31.8 % (32.0-36.0); Mean Corpuscular Hemoglobin 29.8 pg (27.0-34.0); Mean Corpuscular Volume 93.7 fL (80.0-100.0); Mean Platelet Volume 10.8 fL (7.0-11.0); Mono # (Auto) 0.6 th/mm3 (0.0-0.9); Mono % (Auto) 9.8 % (0.0-8.0); Neut # (Auto) 3.3 th/mm3 (1.8-7.7); Neut % (Auto) 53.6 % (16.0-70.0); Platelet Count 96 th/mm3 (150-450); Red Blood Count 2.66 mil/mm3 (4.00-5.30); Red Cell Distribution Width 16.5 % (11.6-17.2); White Blood Count 6.1 th/mm3 (4.0-11.0)
[2018-04-22 04:09] LABS: INR 1.3 Ratio
[2018-04-22 04:41] LABS: Calcium 7.7 mg/dL (8.5-10.1); Carbon Dioxide 25.9 meq/L (21.0-32.0); Potassium 3.1 meq/L (3.5-5.1)
[2018-04-22 06:53] LABS: Albumin 1.7 g/dL (3.4-5.0)
[2018-04-22 06:55] LABS: Total Protein 6.8 g/dL (6.4-8.2)
--- NOTE | 2018-04-22 07:11 | XR ---
EXAM DATE: 04/22/2018 6:58 AM EST AGE/SEX: 72 years / Female INDICATIONS: Short of breath. CLINICAL DATA: This is the patient's subsequent encounter. Patient reports that signs and symptoms h ave been present for 4 - 6 days and indicates a pain score of Nonresponsive. MEDICAL/SURGICAL HISTORY: . Hypertension. Inflammatory bowel disease. Congestive heart failure. Left breast cancer. Intracerebral bleed. Dysphagia. Seizures. Hyperlipidemia. Asthma. Pleural effusi on. Sleep apnea. Insomnia. Dyspnea. GI Bleed. GERD. Cirrhosis. Schizoaffective disorder. Depression. Anxiety. MRSA. None. COMPARISON: . FINDINGS: A right subclavian [id number] has its tip in superior vena cava. No pneumothorax is noted. Bibasil ar patchiness is noted consistent with atelectasis and/or infiltrate. The heart is stable. CONCLUSION: Bibasilar patchiness consistent with atelectasis and/or infiltrate. Clinical correlation is recommend ed. Electronically signed by: Antoni Frias MD Board Certified Radiologist 04/22/2018 7:10 AM EST
[2018-04-22] MEDS: Ferrous Sulfate 325 MG Tablet PO SCH (09:45)
[2018-04-22] MEDS: Senna/Docusate Sodium 8.6/50 MG Tablet G-TUBE SCH ×2 (09:45→21:34)
[2018-04-22] MEDS: Carvedilol 12.5 MG Tablet G-TUBE SCH ×2 (09:51→21:32)
[2018-04-22] MEDS: Phenytoin 50 MG Chewable Tablet G-TUBE SCH ×2 (09:51→21:32)
[2018-04-22] MEDS: Famotidine 20 MG Tablet G-TUBE SCH ×2 (09:51→21:34)
[2018-04-22] MEDS: DEXTROSE IV.CONT SCH (10:18)
[2018-04-22] MEDS: POTASSIUM CHLORIDE IV.CONT SCH (10:18)
[2018-04-22] MEDS: NACL 0.3% IV.CONT SCH (10:18)
[2018-04-22] MEDS ORDERED: Potassium Bicarbonate 25 MEQ Effervescent Tablet G-TUBE ONE (13:30)
[2018-04-22] MEDS ORDERED: Heparin Central Flush 100 UNIT/ML 5 ML Vial IV.FLUSH PRN ×2 (13:44)
[2018-04-22] MEDS: Vancomycin Inj 1,500 MG in Sodium Chlor 0.9% Inj 500 ML IV.SIG SCH (15:01)
--- NOTE | 2018-04-22 15:20 | P.DS ---
DS: Providers Date of admission: 04/16/18 23:17 Primary care physician: Sean Stein MD Consults: 04/17/18 11:04 HUB Only Consult Order Routine Consulting Provider: [facility],Agency 04/17/18 15:24 Consult to Infectious Diseases Routine Consulting Provider: César Smith Reason for Consultation: bacteremia Notified:: Service Spoke with:: BERT Date Notified:: 04/17/18 Time Notified:: 16:09 Ordering Provider: ELBA Brief History from admission: This is a 80-year-old female with a PMH of HTN, Hyperlipidemia, A-fib, Schizoaffective Disorder, Dementia, Anxiety, h/o CVA, h/ o CAD and C Diff who was sent to the ER from [facility] for eval of hypernatremia and fever. Unable to obtain any history from patient due to mental status, appears to be at baseline. Noted to have LUE PICC line w/ surrounding erythema, PICC removed in ER. On arrival, BP 135/81, HR 106, O2 sat 100% on RA, Temp 102.0. WBC 8.7. INR 2.2. Na 157, previously 150 on 03/25. UA negative for UTI. CXR mild right base infiltrate. S/p Zosyn in ER. DS: Diagnosis Discharge Diagnosis (1) Sepsis: Status: Acute (2) PNA (pneumonia): Status: Acute (3) Hypernatremia: Status: Acute (4) Dementia: Status: Acute (5) C. difficile colitis: Status: Acute DS: Summary Sepsis . Fever and bacteremia 2/2 catheter infection MRSA bacteremia PICC line infection status post removal On admission With Temp 102.4, HR 106, Source-PNA/ MRSA bacteremia. Blood cultures, with MRSA . Repeat blood cx 04/18/18 NGTD Consult ID DC cefepime IV, Continue Vanco IV for 10 days til 05/01/18, follow up cultures pt has port which will be used PNA: CXR w/ right base infiltrate, DuoNeb prn, continue w/ IV Abx, monitor O2 sat. Hypernatremia: Na 157, previously 150 on last admit, D5 1/2NS, repeat Na q4h, free water boluses, telemetry. Neuro checks. Dementia: appears to be at baseline, mostly nonverbal but nods/shakes head to few questions, resume home medications. C Diff: from SNF, resume home Vanc PO, isolation. DVT Prophylaxis: SCD/Teds CM consulted for d/c planning as needed. Discharge plan: On IV antibiotics for MRSA bacteremia due to PICC line infection discharge when cleared by infectious disease. Needs rehab Time Spent with Patient Total time spent providing and/or coordinating discharge services: Greater than 30 minutes Exam Narrative Exam Narrative: GENERAL: Well-developed, well-nourished in no distress SKIN: Warm and dry. CARDIOVASCULAR: Regular rate and rhythm. RESPIRATORY: No accessory muscle use. Clear to auscultation. Breath sounds equal bilaterally. GASTROINTESTINAL: Abdomen soft, non-tender, nondistended. G-tube in place MUSCULOSKELETAL: Extremities without clubbing, cyanosis, or edema. Has contractures NEUROLOGICAL: Awake and alert. No obvious cranial nerve deficits. Results Labs on day of discharge: Labs from last 24 hours 04/22/18 04/22/18 04/22/18 15:00 03:42 03:42 WBC RBC Hgb Hct MCV MCH MCHC RDW Plt Count MPV Prelim Diff (Auto) Neut % (Auto) Lymph % (Auto) Taney % (Auto) Eos % (Auto) Baso % (Auto) Neut # (Auto) Lymph # (Auto) Taney # (Auto) Eos # (Auto) Baso # (Auto) WBC Differential Diff Scan Differential Comment Platelet Estimate Platelet Morphology PT 13.0 H INR 1.3 Sodium Cancelled Potassium Cancelled Chloride Cancelled Carbon Dioxide Cancelled Anion Gap Cancelled BUN Cancelled Creatinine Cancelled Estimated GFR Cancelled Random Glucose Cancelled Calcium Cancelled Calcium Adj for Albumin Cancelled Total Bilirubin 0.6 Direct Bilirubin 0.3 H Indirect Bilirubin 0.3 AST 46 H ALT 29 Alkaline Phosphatase 157 H Total Protein 6.8 Albumin 1.7 L Vancomycin Trough Pending Free Phenytoin 04/22/18 04/22/18 04/22/18 03:42 03:42 03:42 WBC 6.1 RBC 2.66 L Hgb 7.9 L Hct 24.9 L MCV 93.7 MCH 29.8 MCHC 31.8 L RDW 16.5 Plt Count 96 L MPV 10.8 Prelim Diff (Auto) Slide review pending Neut % (Auto) 53.6 Lymph % (Auto) 24.0 Taney % (Auto) 9.8 H Eos % (Auto) 12.4 H Baso % (Auto) 0.2 Neut # (Auto) 3.3 Lymph # (Auto) 1.5 Taney # (Auto) 0.6 Eos # (Auto) 0.8 H Baso # (Auto) 0.0 WBC Differential . Diff Scan Auto diff confirmed Differential Comment . Platelet Estimate Low L Platelet Morphology Enlarged H PT INR Sodium 154 H Potassium 3.1 L Chloride 122 H Carbon Dioxide 25.9 Anion Gap 6 BUN 10 Creatinine 0.97 Estimated GFR 69 L Random Glucose 113 H Calcium 7.7 L Calcium Adj for Albumin Total Bilirubin Direct Bilirubin Indirect Bilirubin AST ALT Alkaline Phosphatase Total Protein Albumin Vancomycin Trough Free Phenytoin Pending Preliminary micro results at discharge 04/18/18 11:49 Aerobic Blood Culture - Preliminary Blood - Peripheral No growth in 4 days Anaerobic Blood Culture - Preliminary No growth in 4 days 04/18/18 06:00 Aerobic Blood Culture - Preliminary Blood - Peripheral No growth in 4 days Anaerobic Blood Culture - Preliminary No growth in 4 days Impressions ITS Impressions Chest X-Ray 04/22/18 00:00 CONCLUSION: Bibasilar patchiness consistent with atelectasis and/or infiltrate. Clinical correlation is recommended. Discharge Plan Discharge Disposition Patient Disposition: Discharge to SNF Discharge Condition Condition: Stable Discharge Order Discharge Orders: Discharge Order (Routine); Ordered 04/22/18 Ordered By: Twan Fernandez Discharge Details Anticipated Discharge Date: 04/22/18 Physicians Team Primary Care Provider: Sean Stein V Attending Provider: Twan Fernandez Other Providers: [facility] ; César Smith Rxs /Orders / Referrals /Forms Prescriptions: New carvedilol [Coreg] 12.5 mg Tablet 12.5 mg G-Tube BID Qty: 60 RF: 0 water for injection, sterile Parenteral Solution 250 ml G-Tube Q4HR Qty: 62254 RF: 0 warfarin [Coumadin] 5 mg Tablet 5 mg G-Tube DAILY@1600 Qty: 30 RF: 0 Continue pravastatin 20 mg Tablet 20 mg Feeding Tube BID RF: 0 mirtazapine 7.5 mg Tablet 7.5 mg Feeding Tube DAILY RF: 0 phenytoin [Dilantin Infatabs] 50 mg Tablet,Chewable 125 mg G-Tube BID RF: 0 famotidine 20 mg Tablet 20 mg Feeding Tube BID RF: 0 triamcinolone acetonide 0.1 % Cream 1 applic TOPICAL BID RF: 0 levetiracetam [Keppra] 100 mg/mL Solution 250 mg Feeding Tube BID RF: 0 vancomycin 125 mg/2.5 mL Syringe 125 mg Feeding Tube QID RF: 0 Discontinued warfarin 10 mg Tablet 10 mg Feeding Tube QTUTHSA RF: 0 carvedilol [Coreg] 6.25 mg Tablet 6.25 mg PO BID Qty: 60 RF: 3 potassium chloride 20 mEq Tablet Extended Release 20 meq PO DAILY RF: 0 No Action ferrous sulfate 325 mg (65 mg iron) Tablet 325 mg Feeding Tube TID RF: 0 Ambulatory Orders / Order Sets / DME: Basic Metabolic Panel (Routine) Timeframe: 20180423 Location: Determined by Patient Ordered By: Twan Fernandez Complete Blood Count with Diff (Routine) Timeframe: 20180423 Location: Determined by Patient Ordered By: Twan Fernandez Prothrombin Time INR (Routine) Location: Determined by Patient Ordered By: Twan Fernandez Referrals: Sean Stein MD [Primary Care Provider] - See Instructions (1 wk f/u) Post Discharge Care Plan Care Plan Goals: Your Health Problems: Goals to Promote Your Health: * To prevent worsening of your condition * To maintain your health at the optimal level Directions to Meet Your Goals: * Take your medications as prescribed * Follow your dietary instruction * Follow activity as directed * Keep your appointments as scheduled * Take your immunizations and boosters as scheduled * If your symptoms worsen call your PCP * If no PCP go to Urgent Care or Emergency Room Smoking is dangerous to your health. Avoid second hand smoke. You may reach the 24-hour crisis hotline for domestic abuse at . Discharge Interventions Interventions: Discharge Planning - Case Management Last Done: 04/17/18 13:58 Status ED Status: Left Department
[2018-04-22] MEDS ORDERED: Pharmacy Ordered Lab Info OTHER ONE (15:45)
[2018-04-22] MEDS: Famotidine 20 MG Tablet PO SCH (19:19)
[2018-04-22] MEDS: Famotidine PF Inj 20 MG/2 ML Vial IV.PUSH SCH (19:19)
[2018-04-22] MEDS: Pantoprazole Inj 40 MG Vial IV.PUSH SCH (19:19)
[2018-04-22] MEDS: Senna/Docusate Sodium 8.6/50 MG Tablet PO SCH (19:19)
[2018-04-23] MEDS: POTASSIUM CHLORIDE IV.CONT SCH ×2 (05:44→07:26)
[2018-04-23] MEDS: NACL 0.3% IV.CONT SCH ×2 (05:44→07:26)
[2018-04-23] MEDS: DEXTROSE IV.CONT SCH ×2 (05:44→07:26)
[2018-04-23 07:58] LABS: Baso % (Auto) 0.4 % (0.0-2.0); Eos # (Auto) 0.6 th/mm3 (0.0-0.4); Hematocrit 22.8 % (35.0-46.0); Hemoglobin 7.5 gm/dL (11.6-15.3); Lymph # (Auto) 1.6 th/mm3 (1.0-4.8); Lymph % (Auto) 27.8 % (9.0-44.0); Mean Corpuscular HGB Conc 32.9 % (32.0-36.0); Mean Corpuscular Hemoglobin 30.6 pg (27.0-34.0); Mean Platelet Volume 11.3 fL (7.0-11.0); Mono # (Auto) 0.5 th/mm3 (0.0-0.9); Mono % (Auto) 8.2 % (0.0-8.0); Neut # (Auto) 3.1 th/mm3 (1.8-7.7); Neut % (Auto) 52.6 % (16.0-70.0); Platelet Count 97 th/mm3 (150-450); Red Blood Count 2.45 mil/mm3 (4.00-5.30); Red Cell Distribution Width 16.4 % (11.6-17.2); White Blood Count 5.8 th/mm3 (4.0-11.0)
[2018-04-23 08:03] VITALS: RESP 20
[2018-04-23 08:07] LABS: INR 1.3 Ratio; Prothrombin Time 12.8 sec (9.8-11.6)
[2018-04-23 08:29] LABS: Calcium 7.6 mg/dL (8.5-10.1); Carbon Dioxide 27.2 meq/L (21.0-32.0); Magnesium 1.9 mg/dL (1.5-2.5); Potassium 3.5 meq/L (3.5-5.1)
[2018-04-23 08:31] LABS: Vancomycin,Random 37.6 Comment
[2018-04-23 08:45] LABS: Dimorphic RBC Present; Ovalocytes 1+; Tear Drop Cells 1+
[2018-04-23] MEDS: Phenytoin 50 MG Chewable Tablet G-TUBE SCH (09:22)
[2018-04-23] MEDS: Famotidine 20 MG Tablet G-TUBE SCH (09:22)
[2018-04-23] MEDS: Carvedilol 12.5 MG Tablet G-TUBE SCH (09:23)
[2018-04-23] MEDS: Senna/Docusate Sodium 8.6/50 MG Tablet G-TUBE SCH (09:23)
[2018-04-23 12:07] VITALS: BP 167/81; TEMP 97.7; O2SAT 95
--- NOTE | 2018-04-23 13:12 | P.PNIM ---
Subjective Interval history: Follow-up Infection. She is doing okay has no complaints Physical Exam Vital signs: Last Vital Signs Temp 97.7 F 04/23/18 12:00 Pulse 81 04/23/18 12:00 Resp 20 04/23/18 12:00 BP 167/81 H 04/23/18 12:00 Pulse Ox 95 04/23/18 12:00 Intake & Output 04/21/18 04/22/18 04/23/18 04/24/18 06:59 06:59 06:59 06:59 Intake Total 2515 / 2515 1515 / 1515 1750 / 1750 Output Total 1900 / 1900 750 / 750 1999 / 1999 325 / 325 Balance 615 / 615 765 / 765 -250 / -250 -325 / -325 Weight 84.4 kg 84.4 kg 84.4 kg Narrative: GENERAL: Elderly female , not in acute distress SKIN: Focused skin assessment warm and dry. CARDIOVASCULAR: Regular rate and rhythm. No obvious murmurs to auscultation. Decreased capillary refill. RESPIRATORY: No obvious rhonchi or wheezing. Clear to auscultation. Breath sounds equal bilaterally. GASTROINTESTINAL: Abdomen soft, non-tender, nondistended. BS normal. G-tube in place. MUSCULOSKELETAL: Extremities without clubbing, cyanosis, or edema. No obvious deformities. NEUROLOGICAL: Alert and oriented x 2 at her baseline. H/o CVA w/ right weakness , no new focal neurologic deficits. Urinary Catheter Management Indwelling Temp Sensing Catheter: Cath placed during this visit: yes Urethral indwelling: No Insertion date: 04/16/18 Insertion time: 19:00 Results Labs CBC & Chem 7: 04/23/18 06:00 04/23/18 06:00 Labs: Microbiology 04/18/18 11:49 Blood - Peripheral Aerobic Blood Culture - Final No growth in 5 days 04/18/18 11:49 Blood - Peripheral Anaerobic Blood Culture - Final No growth in 5 days 04/18/18 06:00 Blood - Peripheral Aerobic Blood Culture - Final No growth in 5 days 04/18/18 06:00 Blood - Peripheral Anaerobic Blood Culture - Final No growth in 5 days Assessment and Plan (1) Sepsis: Code(s): A41.9 - Sepsis, unspecified organism Status: Acute (2) PNA (pneumonia): Code(s): J18.9 - Pneumonia, unspecified organism Status: Acute (3) Hypernatremia: Code(s): E87.0 - Hyperosmolality and hypernatremia Status: Acute (4) Dementia: Code(s): F03.90 - Unspecified dementia without behavioral disturbance Status: Acute (5) C. difficile colitis: Code(s): A04.72 - Enterocolitis due to Clostridium difficile, not specified as recurrent Status: Acute Plan Sepsis . Fever and bacteremia 2/2 catheter infection MRSA bacteremia PICC line infection status post removal On admission With Temp 102.4, HR 106, Source-PNA/ MRSA bacteremia. Blood cultures, with MRSA . Repeat blood cx 04/18/18 NGTD Consult ID DC cefepime IV, Continue Vanco IV for 10 days til 05/01/18, follow up cultures PNA: CXR w/ right base infiltrate, DuoNeb prn, continue w/ IV Abx, monitor O2 sat. Hypernatremia: Na 157, previously 150 on last admit, D5 1/2NS, repeat Na q4h, free water boluses, telemetry. Neuro checks. Asymptomatic Dementia: appears to be at baseline, mostly nonverbal but nods/shakes head to few questions, resume home medications. C Diff: from SNF, resume home Vanc PO, isolation. Not having diarrhea discussed with nurse DVT Prophylaxis: SCD/Teds CM consulted for d/c planning as needed. Discharge plan: On IV antibiotics for MRSA bacteremia due to PICC line infection discharge when cleared by infectious disease. Needs rehab Stable for dc
[2018-04-23 13:47] VITALS: PULSE 87
== END 2018-04-23 13:30 | DRG 314 ==
LOC: NEPE 17:57 → NEDA 23:17 → HIMC 04-17 02:00 → N05 04-18 13:39
PROVIDERS: ADMIT Internal Medicine; ATTEND Internal Medicine
DX: I48.91 Unspecified atrial fibrillation; I69.351 Hemiplegia and hemiparesis following cerebral infarction affecting right dominant side; I50.9 Heart failure, unspecified; E78.5 Hyperlipidemia, unspecified; Z88.6 Allergy status to analgesic agent; A04.72 Enterocolitis due to Clostridium difficile, not specified as recurrent; F25.9 Schizoaffective disorder, unspecified; T80.211A Bloodstream infection due to central venous catheter, initial encounter; K21.9 Gastro-esophageal reflux disease without esophagitis; I13.0 Hypertensive heart and chronic kidney disease with heart failure and stage 1 through stage 4 chronic kidney disease, or unspecified chronic kidney disease; I25.119 Atherosclerotic heart disease of native coronary artery with unspecified angina pectoris; E87.6 Hypokalemia; N18.9 Chronic kidney disease, unspecified; Z90.10 Acquired absence of unspecified breast and nipple; Y84.8 Other medical procedures as the cause of abnormal reaction of the patient, or of later complication, without mention of misadventure at the time of the procedure; Z79.01 Long term (current) use of anticoagulants; E87.0 Hyperosmolality and hypernatremia; Z86.14 Personal history of Methicillin resistant Staphylococcus aureus infection; A41.02 Sepsis due to Methicillin resistant Staphylococcus aureus; F41.9 Anxiety disorder, unspecified; I69.391 Dysphagia following cerebral infarction; Z93.1 Gastrostomy status; F01.51 Vascular dementia, unspecified severity, with behavioral disturbance; J18.9 Pneumonia, unspecified organism
CPT/HCPCS: 51702; 71010; 71045; 80048; 80053; 80076; 80185; 80186; 80202; 81001; 82040; 83605; 83735; 84295; 85025; 85610; 86403; 87040; 87071; 87147; 87149; 87186; 87205; 87641; 90765; 90768; 94664; 96365; 96368; 97161; 99285; C9113; J0131; J0692; J1642; J2543; J3370; J3480; J7040

== ENCOUNTER 2018-06-23 13:37 | Inpatient (IN) ==
--- NOTE | 2018-06-23 14:24 | ED ---
HPI General Chief complaint: Altered Mental Status Stated complaint: Medical Time Seen by Provider: 06/23/18 13:40 Source: EMS and RN notes reviewed Mode of arrival: EMS Limitations: altered mental status History of Present Illness HPI narrative: 72yF presenting with altered mental status. The patient is from a nursing facility and was reportedly found in bed unresponsive. It is unclear when she was last seen normal. The patient arrived awake but non-verbal, does not follow commands, further details of HPI are unclear. Related Data Home Medications Medication Instructions Recorded Confirmed phenytoin [Dilantin Infatabs] 125 mg G-TUBE TID 03/11/18 06/23/18 pravastatin 20 mg FEEDING TUBE BID 03/11/18 06/23/18 famotidine 20 mg FEEDING TUBE BID 03/12/18 06/23/18 triamcinolone acetonide 1 applic TOPICAL BID 03/12/18 06/23/18 carvedilol [Coreg] 6.25 mg G-TUBE BID 05/10/18 06/23/18 ipratropium-albuterol 3 ml INHALATION Q6-8H PRN 05/10/18 06/23/18 B complex-vitamin C-folic acid 1 tab PO DAILY 06/23/18 06/23/18 [Dialyvite] tuberculin PPD [Aplisol] 0.1 ml INTRADERMAL DIRECTED 06/23/18 06/23/18 Previous Rx's Medication Instructions Recorded ferrous sulfate 325 mg FEEDING TUBE DAILY #0 tab 04/23/18 mupirocin calcium [Bactroban Nasal] 1 applicatio INTRANASAL BID #0 g 05/15/18 water for injection, sterile 300 ml G-TUBE Q4HR #0 ml 05/15/18 Allergies Allergy/AdvReac Type Severity Reaction Status Date / Time aspirin Allergy Severe Hives Verified 06/23/18 13:53 *MDRO Multi-Drug Resistant AdvReac Unknown Cleared Uncoded 05/10/18 21:33 Organism 05/2016 Review of Systems ROS Unobtainable ROS Unobtainable: unobtainable due to mental status PMFSH History History Provided By: Medical Record and Alteration Inspector / EMT Medical History Medical History Agnosia (Acute) Angina pectoris, unspecified (Acute) Anxiety (Acute) Atrial fibrillation (Acute) CKD (chronic kidney disease) (Acute) CVA (cerebral vascular accident) (Acute) Duodenitis (Acute) Dysphagia (Acute) Failure to thrive (Acute) GERD (gastroesophageal reflux disease) (Acute) Gastrointestinal tube present (Acute) HTN (hypertension) (Acute) Heart failure (Acute) Hiatal hernia (Acute) History of MRSA infection (Acute ~05/11/18) History of breast cancer (Acute) Hypokalemia (Acute) IBS (irritable bowel syndrome) (Acute) Schizoaffective disorder (Acute) Vascular dementia with behavior disturbance (Acute) GI bleed (Resolved) Surgical History Surgical History H/O mastectomy (Resolved) History of esophagogastroduodenoscopy (EGD) (Resolved) S/P percutaneous endoscopic gastrostomy (PEG) tube placement (Resolved) Family History Family History Other Hypertension Social History Social History Substance History: No History of Abuse Second Hand Smoke Exposure: No Smoking Status: Cognitive impairment How Often Do You Have a Drink Containing Alcohol: Unable to Obtain Recent Travel in [facility] within the Last 8 Weeks: No Recent Out of Country Travel within the Last 8 Weeks: No Exam Const General: frail appearing HENMT Face and sinus: normal facial exam Eyes General: appearance normal, both eyes and all related structures Pupils: PERRL Chest Chest: normal inspection of the chest Resp Effort & Inspection: normal respiratory effort Auscultation: no rhonchi and no wheezes Cardio Rate: regular rate Rhythm: regular rhythm GI Inspection: non-distended Palpation: soft and nontender Skin General: no rashes or lesions noted Neuro Other: Awake, non-verbal, does not answer questions or follow commands No apparent facial droop Spontaneously moves all extremities Course Initial Documented Vital Signs Pulse Rate 91 H 06/23/18 13:40 Pulse Oximetry 97 06/23/18 13:40 Last Documented Vital Signs Temperature 97.9 F 06/23/18 13:48 Pulse Rate 85 06/23/18 15:56 Respiratory Rate 18 06/23/18 15:56 Blood Pressure 130/61 06/23/18 15:56 Pulse Oximetry 97 06/23/18 15:56 Critical Care Time Critical Care Time: Yes Total Critical Care Time: 58 Attestation: Counseling/ Coordination of Care: This patient is critically ill with impairment of one or more vital organ systems with a high probability of imminent or life-threatening deterioration. High-complexity medical decision making was required to support vital organ function and/ or prevent deterioration of the patient's condition. Total critical care time spent is 58 minutes giving full attention to this patient. This includes examining and stabilizing the patient, gathering a history from a source other than the patient (i.e., chart review), formulating a differential diagnosis, ordering and interpreting laboratory tests and EKG, ordering and interpreting radiology tests, discussing the patient's care with other providers (filling hauler), re-evaluation at frequent intervals, and documentation. Amount of time is separate from teaching, counseling the patient and/or family, and exclusive of procedures. Medical Decision Making MDM Narrative Medical decision making narrative: Assessment: 72yF presenting with altered mental status Plan: FSBG EKG and monitor Labs CXR UA CTH Addendum: Patient found to have severe hypernatremia, UTI, elevated ammonia, and acute kidney injury. I discussed these results with the patient's daughter as well as plan to keep her in the hospital. Case discussed with Dr. Ramsey of [facility] [place]. Medical Screen Exam Complete: Yes Emergency Medical Condition: Yes Differential Diagnosis Differential Diagnosis: Differential diagnosis includes, but is not limited to: CVA, ICH, UTI, pneumonia, electrolyte abnormality, renal failure, encephalopathy NOS Medical Records Medical records reviewed: Yes I reviewed the patient's medical records. Lab Data Lab results reviewed: Yes I reviewed the patient's lab results. Result diagrams: 06/23/18 14:25 06/23/18 14:25 Lab Results 06/23/18 06/23/18 06/23/18 Range/Units 14:25 14:25 14:25 WBC 9.8 (4.0-11.0) th/mm3 RBC 4.36 (4.00-5.30) mil/mm3 Hgb 12.7 (11.6-15.3) gm/dL Hct 40.5 (35.0-46.0) % MCV 92.7 (80.0-100.0) fL MCH 29.2 (27.0-34.0) pg MCHC 31.5 L (32.0-36.0) % RDW 16.6 (11.6-17.2) % Plt Count 51 L D (150-450) th/mm3 MPV 14.3 H (7.0-11.0) fL Prelim Diff (Auto) Slide review pending Neut % (Auto) 68.2 (16.0-70.0) % Lymph % (Auto) 21.4 (9.0-44.0) % [place] % (Auto) 5.5 (0.0-8.0) % Eos % (Auto) 4.7 H (0.0-4.0) % Baso % (Auto) 0.2 (0.0-2.0) % Neut # (Auto) 6.7 (1.8-7.7) th/mm3 Lymph # (Auto) 2.1 (1.0-4.8) th/mm3 [place] # (Auto) 0.5 (0.0-0.9) th/mm3 Eos # (Auto) 0.5 H (0.0-0.4) th/mm3 Baso # (Auto) 0.0 (0.0-0.2) th/mm3 WBC Differential Manual diff final Seg Neuts % (Manual) 68 (16-70) % Band Neuts % (Manual) 5 (0-6) % Lymphocytes % (Manual) 18 (9-44) % Monocytes % (Manual) 6 (0-8) % Eosinophils % (Manual) 3 (0-4) % Abs Neuts (Manual) 7.2 (1.8-7.7) th/mm3 Differential Comment . Platelet Estimate Low L (Normal) Platelet Morphology Enlarged H (Normal) Stomatocytes 1+ H (None) PT 10.6 (9.8-11.6) sec INR 1.0 Ratio Sodium 171 H* (136-145) meq/L Potassium 3.6 (3.5-5.1) meq/L Chloride 134 H (98-107) meq/L Carbon Dioxide 33.7 H (21.0-32.0) meq/L Anion Gap 3 L (5-15) meq/L BUN 71 H (7-18) mg/dL Creatinine 1.99 H (0.50-1.00) mg/dL Estimated GFR 30 L (>89) mL/min Random Glucose 123 H (74-106) mg/dL Lactic Acid (0.4-2.0) mmol/L Calcium 8.1 L (8.5-10.1) mg/dL Magnesium 4.9 H (1.5-2.5) mg/dL Total Bilirubin 0.5 (0.2-1.0) mg/dL AST 35 (15-37) U/L ALT 34 (10-53) U/L Alkaline Phosphatase 180 H (45-117) U/L Ammonia (11-32) mcmol/L Total Creatine Kinase 72 (26-192) U/L Troponin I Less than 0.02 L (0.02-0.05) ng/mL Total Protein 8.2 (6.4-8.2) g/dL Albumin 2.8 L (3.4-5.0) g/dL TSH 0.790 (0.358-3.740) uIU/mL Urine Color (Yellw/Straw) Urine Clarity (Clear) Urine pH (5.0-8.5) Ur Specific [place] (1.002-1.035) Urine Protein (Neg-Trace) mg/dL Urine Glucose (UA) (Negative) mg/dL Urine Ketones (Negative) mg/dL Urine Occult Blood (Negative) Urine Nitrate (Negative) Urine Bilirubin (Negative) Urine Urobilinogen (Less than 2) mg/dL Ur Leukocyte Esterase (Negative) Urine RBC (0-3) /hpf Urine WBC (0-5) /hpf Urine WBC Clumps (None) Ur Squamous Epith Cells (0-5) /hpf Urine Bacteria (None) /hpf Urine Mucus (Occasional) /lpf Micro UA Comment Ur Microscopic Review Urine Culture Comments Blood Type Antibody Screen 06/23/18 06/23/18 06/23/18 Range/Units 14:25 14:25 14:25 WBC (4.0-11.0) th/mm3 RBC (4.00-5.30) mil/mm3 Hgb (11.6-15.3) gm/dL Hct (35.0-46.0) % MCV (80.0-100.0) fL MCH (27.0-34.0) pg MCHC (32.0-36.0) % RDW (11.6-17.2) % Plt Count (150-450) th/mm3 MPV (7.0-11.0) fL Prelim Diff (Auto) Neut % (Auto) (16.0-70.0) % Lymph % (Auto) (9.0-44.0) % [place] % (Auto) (0.0-8.0) % Eos % (Auto) (0.0-4.0) % Baso % (Auto) (0.0-2.0) % Neut # (Auto) (1.8-7.7) th/mm3 Lymph # (Auto) (1.0-4.8) th/mm3 [place] # (Auto) (0.0-0.9) th/mm3 Eos # (Auto) (0.0-0.4) th/mm3 Baso # (Auto) (0.0-0.2) th/mm3 WBC Differential Seg Neuts % (Manual) (16-70) % Band Neuts % (Manual) (0-6) % Lymphocytes % (Manual) (9-44) % Monocytes % (Manual) (0-8) % Eosinophils % (Manual) (0-4) % Abs Neuts (Manual) (1.8-7.7) th/mm3 Differential Comment Platelet Estimate (Normal) Platelet Morphology (Normal) Stomatocytes (None) PT (9.8-11.6) sec INR Ratio Sodium (136-145) meq/L Potassium (3.5-5.1) meq/L Chloride (98-107) meq/L Carbon Dioxide (21.0-32.0) meq/L Anion Gap (5-15) meq/L BUN (7-18) mg/dL Creatinine (0.50-1.00) mg/dL Estimated GFR (>89) mL/min Random Glucose (74-106) mg/dL Lactic Acid (0.4-2.0) mmol/L Calcium (8.5-10.1) mg/dL Magnesium (1.5-2.5) mg/dL Total Bilirubin (0.2-1.0) mg/dL AST (15-37) U/L ALT (10-53) U/L Alkaline Phosphatase (45-117) U/L Ammonia (11-32) mcmol/L Total Creatine Kinase Cancelled (26-192) U/L Troponin I (0.02-0.05) ng/mL Total Protein (6.4-8.2) g/dL Albumin (3.4-5.0) g/dL TSH (0.358-3.740) uIU/mL Urine Color [place] (Yellw/Straw) Urine Clarity Cloudy H (Clear) Urine pH 7.0 (5.0-8.5) Ur Specific [place] 1.016 (1.002-1.035) Urine Protein 30 H (Neg-Trace) mg/dL Urine Glucose (UA) Negative (Negative) mg/dL Urine Ketones Negative (Negative) mg/dL Urine Occult Blood Small H (Negative) Urine Nitrate Negative (Negative) Urine Bilirubin Negative (Negative) Urine Urobilinogen 0.2 (Less than 2) mg/dL Ur Leukocyte Esterase Large H (Negative) Urine RBC 11 H (0-3) /hpf Urine WBC (0-5) /hpf Urine WBC Clumps Moderate H (None) Ur Squamous Epith Cells 1 (0-5) /hpf Urine Bacteria Many H (None) /hpf Urine Mucus Few H (Occasional) /lpf Micro UA Comment Cath-culture ind Ur Microscopic Review Not Reportable Urine Culture Comments Cath-cult indicated Blood Type O Positive Antibody Screen Negative 06/23/18 06/23/18 Range/Units 14:30 14:30 WBC (4.0-11.0) th/mm3 RBC (4.00-5.30) mil/mm3 Hgb (11.6-15.3) gm/dL Hct (35.0-46.0) % MCV (80.0-100.0) fL MCH (27.0-34.0) pg MCHC (32.0-36.0) % RDW (11.6-17.2) % Plt Count (150-450) th/mm3 MPV (7.0-11.0) fL Prelim Diff (Auto) Neut % (Auto) (16.0-70.0) % Lymph % (Auto) (9.0-44.0) % [place] % (Auto) (0.0-8.0) % Eos % (Auto) (0.0-4.0) % Baso % (Auto) (0.0-2.0) % Neut # (Auto) (1.8-7.7) th/mm3 Lymph # (Auto) (1.0-4.8) th/mm3 [place] # (Auto) (0.0-0.9) th/mm3 Eos # (Auto) (0.0-0.4) th/mm3 Baso # (Auto) (0.0-0.2) th/mm3 WBC Differential Seg Neuts % (Manual) (16-70) % Band Neuts % (Manual) (0-6) % Lymphocytes % (Manual) (9-44) % Monocytes % (Manual) (0-8) % Eosinophils % (Manual) (0-4) % Abs Neuts (Manual) (1.8-7.7) th/mm3 Differential Comment Platelet Estimate (Normal) Platelet Morphology (Normal) Stomatocytes (None) PT (9.8-11.6) sec INR Ratio Sodium (136-145) meq/L Potassium (3.5-5.1) meq/L Chloride (98-107) meq/L Carbon Dioxide (21.0-32.0) meq/L Anion Gap (5-15) meq/L BUN (7-18) mg/dL Creatinine (0.50-1.00) mg/dL Estimated GFR (>89) mL/min Random Glucose (74-106) mg/dL Lactic Acid 1.7 (0.4-2.0) mmol/L Calcium (8.5-10.1) mg/dL Magnesium (1.5-2.5) mg/dL Total Bilirubin (0.2-1.0) mg/dL AST (15-37) U/L ALT (10-53) U/L Alkaline Phosphatase (45-117) U/L Ammonia 137 H (11-32) mcmol/L Total Creatine Kinase (26-192) U/L Troponin I (0.02-0.05) ng/mL Total Protein (6.4-8.2) g/dL Albumin (3.4-5.0) g/dL TSH (0.358-3.740) uIU/mL Urine Color (Yellw/Straw) Urine Clarity (Clear) Urine pH (5.0-8.5) Ur Specific [place] (1.002-1.035) Urine Protein (Neg-Trace) mg/dL Urine Glucose (UA) (Negative) mg/dL Urine Ketones (Negative) mg/dL Urine Occult Blood (Negative) Urine Nitrate (Negative) Urine Bilirubin (Negative) Urine Urobilinogen (Less than 2) mg/dL Ur Leukocyte Esterase (Negative) Urine RBC (0-3) /hpf Urine WBC (0-5) /hpf Urine WBC Clumps (None) Ur Squamous Epith Cells (0-5) /hpf Urine Bacteria (None) /hpf Urine Mucus (Occasional) /lpf Micro UA Comment Ur Microscopic Review Urine Culture Comments Blood Type Antibody Screen Imaging Data Radiologist's impression: Chest X-Ray 06/23/18 13:40 CONCLUSION: 1. No acute abnormality or significant interval change. Head CT 06/23/18 13:40 CONCLUSION: 1. No acute intracranial abnormality. 2. Redemonstration of remote left MCA territory infarction with encephalomalacia and ex vacuo dilatation of the lateral ventricle. . . ECG Data Attestation: I personally reviewed and interpreted this ECG as follows: Interpretation: Rate: 87 BPM Rhythm: Sinus [place]: Normal Intervals: 1st degree AV block, QTc 490 ms Q waves: III T waves: Inverted in II, III, aVF, V4-V6 ST segments: No elevations or depressions Impression: 1st degree AV block, long QTc, new when compared to EKG from 2018. Discharge Plan Discharge Disposition Patient Disposition: ED Admit(ED Internal Use Only) Discharge Condition Condition: Critical Discharge Order Discharge Orders: ED Use Only Admit Order (Routine); Ordered 06/23/18 Ordered By: Linnette Layton Discharge Details Diagnosis: Acute hypernatremia, Dehydration, Hyperammonemia, Acute kidney injury, Acute UTI, Acute encephalopathy Physicians Team ED Provider: Linnette Layton Primary Care Provider: Sean Stein V Attending Provider: Joshua Ramsey Discharge Interventions Interventions: Vital Signs Last Done: 06/23/18 15:56 Status ED Status: Admitted Patient
[2018-06-23 14:51] LABS: Bacteria,Urine Many /hpf; Bilirubin,Urine Negative (Negative); Clarity,Urine Cloudy (Clear); Color,Urine Amber (Yellw/Straw); Glucose,Urine (UA) Negative (Negative); Leukocyte Esterase,Urine Large (Negative); Mucus,Urine Few /lpf (Occasional); Nitrite,Urine Negative (Negative); Specific Gravity,Urine 1.016 (1.002-1.035); Squamous Epithelial Cell,Urine 1 /hpf (0-5)
--- NOTE | 2018-06-23 14:51 | XR ---
EXAM DATE: 06/23/2018 2:31 PM EST AGE/SEX: 72 years / Female INDICATIONS: Short of breath CLINICAL DATA: This is the patient's initial encounter. Patient reports that signs and symptoms have been present for 1 day and indicates a pain score of Nonresponsive. MEDICAL/SURGICAL HISTORY: Non-responsive. Non-responsive. COMPARISON: [facility] [place], CHEST 1V SINGLE AP, 04/22/2018. . FINDINGS: Stable right subclavian [id number]. Mild diffuse interstitial prominence without focal new pleural or parenchymal opacities. Cardiomediastinal contours are within normal limits. Bony thorax is intact . CONCLUSION: 1. No acute abnormality or significant interval change. Electronically signed by: Manuelito Craft MD Board Certified Radiologist 06/23/2018 2:50 PM EST
[2018-06-23 14:53] LABS: Urobilinogen,Urine 0.2 mg/dL (Less than 2)
--- NOTE | 2018-06-23 15:06 | CT ---
EXAM DATE: 06/23/2018 3:00 PM EST AGE/SEX: 72 years / Female INDICATIONS: Altered mental status. CLINICAL DATA: This is the patient's initial encounter. Patient reports that signs and symptoms have been present for 1 day and indicates a pain score of 0/10. MEDICAL/SURGICAL HISTORY: Cardiovascular disease. Cerebrovascular disease. Carcinoma, breast. hy pertension ,heart disease None. RADIATION DOSE: 44.68 CTDI (mGy) COMPARISON: [facility] [place] W/O [place]AST, 03/12/2018. . TECHNIQUE: CT of the head without contrast. Using automated exposure control and adjustment of the mA and/or kV according to patient size, radiation dose was kept as low as reasonably achievable to ob tain optimal diagnostic quality images. DICOM format image data is available electronically for revi ew and comparison. FINDINGS: Cerebrum: Moderate diffuse cerebral atrophy with extensive encephalomalacia involving nearly the ent arie left hemisphere. There is associated ex vacuo dilatation of the left lateral ventricle. Right hem isphere demonstrates normal garcia-white matter differentiation. Posterior Fossa: The cerebellum and brainstem are intact. The 4th ventricle is midline. The cerebe llopontine angle is unremarkable. Extracranial: The visualized portion of the orbits is intact. Skull: The calvaria is intact. No evidence of skull fracture. CONCLUSION: 1. No acute intracranial abnormality. 2. Redemonstration of remote left MCA territory infarction with encephalomalacia and ex vacuo dilata tion of the lateral ventricle. . . Electronically signed by: Manuelito Craft MD Board Certified Radiologist 06/23/2018 3:05 PM EST
[2018-06-23 15:10] LABS: Prothrombin Time 10.6 sec (9.8-11.6)
[2018-06-23 15:33] LABS: Alanine Aminotransferase 34 U/L (10-53); Albumin 2.8 g/dL (3.4-5.0); Alkaline Phosphatase 180 U/L (45-117); Anion Gap 3 meq/L (5-15); Aspartate Aminotransferase 35 U/L (15-37); Blood Urea Nitrogen 71 mg/dL (7-18); Calcium 8.1 mg/dL (8.5-10.1); Carbon Dioxide 33.7 meq/L (21.0-32.0); Chloride 134 meq/L (98-107); Glomerular Filtration Rate 30 mL/min (>89); Glucose,Random 123 mg/dL (74-106); Magnesium 4.9 mg/dL (1.5-2.5); Potassium 3.6 meq/L (3.5-5.1); Total Protein 8.2 g/dL (6.4-8.2)
[2018-06-23 15:34] LABS: Creatine Kinase 72 U/L (26-192); Sodium 171 meq/L (136-145)
[2018-06-23] MEDS ORDERED: Sod Chloride 0.9% Inj 1,000 ML IV.SIG ONE (15:35)
[2018-06-23 16:00] LABS: Baso % (Auto) 0.2 % (0.0-2.0); Eos # (Auto) 0.5 th/mm3 (0.0-0.4); Eos % (Auto) 4.7 % (0.0-4.0); Hematocrit 40.5 % (35.0-46.0); Hemoglobin 12.7 gm/dL (11.6-15.3); Lymph # (Auto) 2.1 th/mm3 (1.0-4.8); Lymph % (Auto) 21.4 % (9.0-44.0); Mean Corpuscular HGB Conc 31.5 % (32.0-36.0); Mean Corpuscular Hemoglobin 29.2 pg (27.0-34.0); Mean Corpuscular Volume 92.7 fL (80.0-100.0); Mean Platelet Volume 14.3 fL (7.0-11.0); Mono # (Auto) 0.5 th/mm3 (0.0-0.9); Mono % (Auto) 5.5 % (0.0-8.0); Neut # (Auto) 6.7 th/mm3 (1.8-7.7); Neut % (Auto) 68.2 % (16.0-70.0); Platelet Count 51 th/mm3 (150-450); Red Blood Count 4.36 mil/mm3 (4.00-5.30); Red Cell Distribution Width 16.6 % (11.6-17.2); White Blood Count 9.8 th/mm3 (4.0-11.0)
[2018-06-23 16:04] LABS: Eosinophils 3 % (0-4); Lymphocytes 18 % (9-44); Monocytes 6 % (0-8)
[2018-06-23 16:05] LABS: Stomatocytes 1+
[2018-06-23] MEDS ORDERED: Bisacodyl 10 MG Supp RECTAL PRN (16:21)
[2018-06-23] MEDS ORDERED: Dextrose 50% in Water 50 ML Vial IV.PUSH PRN (16:25)
[2018-06-23] MEDS: Sod Chloride 0.9% Inj 1,000 ML IV.SIG SCH ×2 (17:05→17:06)
[2018-06-23] MEDS: Pantoprazole Inj 40 MG Vial IV.PUSH SCH (17:18)
--- NOTE | 2018-06-23 17:36 | MH ---
cc: Joshua Ramsey MD DATE OF ADMISSION: 06/23/2018 HISTORY OF PRESENT ILLNESS: The patient is a 72-year-old female with a past medical history of a CVA, breast cancer, hypertension, dysphagia with a previous PEG tube placement, vascular dementia, schizoaffective disorder, atrial fibrillation and chronic kidney disease. She was transferred from a local nursing facility after the patient was found in bed, unresponsive. It is unclear when she was last seen normal. The patient is nonverbal at baseline and does not follow any commands. Her laboratory data significant for severe hypernatremia with a sodium level of 171, acute renal failure with creatinine 1.99 and elevated ammonia level at 137. Her urinalysis was positive for UTI. In the ED, the patient was given 1 liter of normal saline and Rocephin. CT scan of the brain showed no acute intracranial findings and chest x-ray showed no acute cardiopulmonary disease. History is limited as the patient is nonverbal. PAST MEDICAL HISTORY: Significant for atrial fibrillation, chronic kidney disease, CVA, dysphagia, GERD, hypertension, hiatal hernia, history of breast cancer, IBS, schizoaffective disorder, vascular dementia with behavioral disturbance. PAST SURGICAL HISTORY: Previous mastectomy, previous PEG tube placement, previous EGD. FAMILY HISTORY: Hypertension runs in the family. SOCIAL HISTORY: Nonsmoker, nondrinker. The patient is a retirement resident. ALLERGIES: ASPIRIN. MEDICATIONS: At the nursing facility include: 1. Dilantin 2. Pepcid. 3. Pravastatin. 4. DuoNeb. 5. Coreg. 6. B-complex. 7. Ferrous sulfate. REVIEW OF SYSTEMS: As per HPI, rest of review of systems limited. PHYSICAL EXAMINATION: GENERAL: A 72-year-old female, lying in bed in no acute distress. VITAL SIGNS: Afebrile with a temperature of 97.9, pulse of 86, blood pressure 130/61, saturation 98% on room air. HEENT: Atraumatic, normocephalic. Pupils are equal, round, reactive to light and accommodation. Extraocular muscles intact. Conjunctivae pink, Nonicteric sclerae. Dry mucous membranes. NECK: Supple. No JVD, adenopathy or thyromegaly. Trachea in the midline. CARDIOVASCULAR: Regular rate and rhythm. Normal S1, S2. No murmurs, rubs or gallops noted. PULMONARY: Bilateral equal air entry. No rales, wheezing. ABDOMEN: Soft, obese, nontender. No distention. Positive bowel sounds. EXTREMITIES: No cyanosis, clubbing or edema. Contracted lower extremity. NEUROLOGIC: Nonverbal at baseline. No focal sensory deficit. Unable to move the right side, chronic from previous stroke. LABORATORY DATA: WBC 9.8, hemoglobin 12.7, hematocrit 40, and platelet count of 51, sodium 171, potassium 3.6, chloride 134, CO2 of 33, BUN 71, creatinine 1.99, glucose 123. Lactic acid 1.7, magnesium 4.9, calcium 8.1. Ammonia 137. Troponin less than 0.02. RADIOGRAPHIC STUDIES: Chest x-ray showed no acute disease. CT brain showed no acute intracranial findings. ASSESSMENT AND PLAN: 1. Severe dehydration. 2. Hypernatremia. 3. Acute kidney injury. 4. Elevated ammonia level. 5. Thrombocytopenia. 6. History of cerebrovascular accident with a right-sided hemiparesis. 7. Previous PEG tube placement. 8. Urinary tract infection. 9. History of hypertension. 10. History of breast carcinoma. RECOMMENDATIONS: 1. Monitor neuro status closely and avoid any sedatives. A CT scan of the brain in the ED showed no acute intracranial findings. The patient is on Dilantin 125 mg t.i.d. We will check a Dilantin level first prior to resuming. 2. Oxygen p.r.n. to maintain sats above 92%. 3. Bronchodilators q.4 and DuoNeb q.6 hours plus q.2 hours p.r.n. for shortness of breath. A chest x-ray in the ED showed no acute disease. 4. Aspiration precautions. 5. Monitor heart rate and blood pressure closely and maintain MAP greater than 65 mmHg. Lactic acid level measured 1.7 in the ED. She was given 1 liter of crystalloid. We will give an additional 1 liter bolus of normal saline followed by D5W at 125 mL an hour. 6. Monitor renal function, I's and O's and avoid nephrotoxins. Electrolyte replacement as needed. 7. Continue with IV hydration as stated above. In addition, we will place on free water 250 mL q.8 via PEG tube. 8. Monitor CKs. 9. Place on Protonix 40 mg IV daily for gastrointestinal prophylaxis 10. Lactulose 30 mL b.i.d. Monitor ammonia level, it was [address] on Rocephin 1 gram daily for UTI. Monitor for signs of infection, which include fever and WBC. Follow up on blood culture, blood and urine cultures. Chest x-ray in the ED showed no acute disease. 12. Monitor CBC. 13. Sliding scale insulin with Accu-Cheks to maintain euglycemia. 14. Nutrition support. Start tube feeds, Jevity 1.5 with goal rate of 45 mL an hour via PEG tube. 15. Monitor CBC and coags. 16. GI prophylaxis with Protonix 40 mg daily and DVT prophylaxis with SCDs. We will hold off on chemical anticoagulation prophylaxis given thrombocytopenia. Joshua Ramsey MD AI/ct , 04:40 PM , 04:53 PM
[2018-06-23] MEDS: Dextrose 5% in Water Inj 1,000 ML IV.CONT SCH (19:52)
[2018-06-23] MEDS: Insulin NovoLOG Aspart Correctional Sugar Inj SQ SCH (20:00)
[2018-06-23] MEDS: Mupirocin 2% Nasal Oint Topical Syringe EACH NARE SCH (21:06)
[2018-06-24 00:59] LABS: Calcium 7.4 mg/dL (8.5-10.1); Carbon Dioxide 30.4 meq/L (21.0-32.0); Phenytoin (Dilantin) 5.9 mcg/mL (10.0-20.0); Potassium 3.3 meq/L (3.5-5.1)
[2018-06-24 01:10] LABS: Albumin 2.3 g/dL (3.4-5.0); Calcium-Albumin Corrected 8.8 mg/dL (8.5-10.1)
[2018-06-24] MEDS: Chlorhexidine Gluconate 2% 1 Pack (2 Cloths) TOPICAL SCH (03:15)
[2018-06-24] MEDS: Insulin NovoLOG Aspart Correctional Sugar Inj SQ SCH ×6 (04:00→20:00)
[2018-06-24] MEDS ORDERED: Chlorhexidine Gluconate 2% 1 Pack (2 Cloths) TOPICAL PRN (04:00)
[2018-06-24] MEDS: Dextrose 5% in Water Inj 1,000 ML IV.CONT SCH ×4 (04:10→16:42)
[2018-06-24 05:04] LABS: Baso % (Auto) 0.1 % (0.0-2.0); Eos # (Auto) 0.3 th/mm3 (0.0-0.4); Eos % (Auto) 4.6 % (0.0-4.0); Hematocrit 38.4 % (35.0-46.0); Lymph % (Auto) 26.9 % (9.0-44.0); Mean Corpuscular HGB Conc 31.3 % (32.0-36.0); Mean Corpuscular Hemoglobin 29.1 pg (27.0-34.0); Mean Corpuscular Volume 93.1 fL (80.0-100.0); Mean Platelet Volume 15.2 fL (7.0-11.0); Mono # (Auto) 0.5 th/mm3 (0.0-0.9); Mono % (Auto) 6.8 % (0.0-8.0); Neut # (Auto) 4.6 th/mm3 (1.8-7.7); Neut % (Auto) 61.6 % (16.0-70.0); Platelet Count 44 th/mm3 (150-450); Red Blood Count 4.13 mil/mm3 (4.00-5.30); Red Cell Distribution Width 16.2 % (11.6-17.2); White Blood Count 7.4 th/mm3 (4.0-11.0)
[2018-06-24 05:36] LABS: Albumin 2.4 g/dL (3.4-5.0); Calcium 7.4 mg/dL (8.5-10.1); Carbon Dioxide 30.4 meq/L (21.0-32.0); Magnesium 4.5 mg/dL (1.5-2.5); Phosphorus 2.7 mg/dL (2.5-4.9); Potassium 3.1 meq/L (3.5-5.1); Total Protein 7.5 g/dL (6.4-8.2)
[2018-06-24] MEDS: Pantoprazole Inj 40 MG Vial IV.PUSH SCH (08:43)
[2018-06-24] MEDS: Mupirocin 2% Nasal Oint Topical Syringe EACH NARE SCH ×2 (08:43→21:45)
[2018-06-24] MEDS ORDERED: Mupirocin 2% Nasal Oint Topical Syringe EACH NARE SCH (09:00)
[2018-06-24] MEDS ORDERED: Potassium Chloride 25 MEQ Effervescent Tablet PO ONE (09:45)
--- NOTE | 2018-06-24 10:00 | P.PNCC ---
Subjective Subjective Remarks/Hospital Course: The patient is a 72-year-old female with a past medical history of a CVA, breast cancer, hypertension, dysphagia with a previous PEG tube placement, vascular dementia, schizoaffective disorder, atrial fibrillation and chronic kidney disease. She was transferred from a local nursing facility after the patient was found in bed, unresponsive. It is unclear when she was last seen normal. The patient is nonverbal at baseline and does not follow any commands. Her laboratory data significant for severe hypernatremia with a sodiumlevel of 171, acute renal failure with creatinine 1.99 and elevated ammonia level at 137. Her urinalysis was positive for UTI. In the ED, the patient was given 1 liter of normal saline and Rocephin. CT scan of the brain showed no acute intracranial findings and chest x-ray showed no acute cardiopulmonary disease. History is limited as the patient is nonverbal. SUBJECTIVE: 06/24: Currently arousable and following commands intermittently. Will restart tube feeding today. Sodium is 169. Ammonia was 137 yesterday. Objective Vital Signs / I&O: Vital Signs 06/23/18 13:40 06/23/18 13:48 06/23/18 15:56 Temperature 97.9 F Pulse Rate 91 H 91 H 85 Respiratory Rate 22 18 Blood Pressure 149/78 H 130/61 Pulse Oximetry 97 97 97 06/23/18 17:00 06/23/18 17:13 06/23/18 17:42 Temperature 98.2 F Pulse Rate 89 89 92 H Respiratory Rate 25 H 30 H 22 Blood Pressure 167/71 H 164/74 H 157/63 H Pulse Oximetry 96 97 96 06/23/18 18:00 06/23/18 19:00 06/23/18 20:00 Temperature 98.4 F Pulse Rate 92 H 93 H 95 H Respiratory Rate 24 27 H 20 Blood Pressure 150/68 H 153/67 H 153/65 H Pulse Oximetry 95 97 97 06/23/18 21:00 06/23/18 22:00 06/23/18 23:00 Temperature Pulse Rate 96 H 94 H 90 Respiratory Rate 29 H 36 H 20 Blood Pressure 150/66 H 160/63 H 137/62 Pulse Oximetry 99 98 97 06/23/18 23:21 06/24/18 00:00 06/24/18 01:00 Temperature Pulse Rate 91 H 91 H 87 Respiratory Rate 20 25 H 16 Blood Pressure 152/66 H 153/67 H Pulse Oximetry 98 96 06/24/18 02:00 06/24/18 03:00 06/24/18 03:01 Temperature Pulse Rate 87 87 87 Respiratory Rate 18 22 31 H Blood Pressure 145/64 H 137/65 137/65 Pulse Oximetry 97 98 99 06/24/18 03:50 06/24/18 04:00 06/24/18 04:01 Temperature Pulse Rate 87 88 87 Respiratory Rate 20 35 H 35 H Blood Pressure 167/73 H 167/73 H Pulse Oximetry 100 100 06/24/18 05:00 06/24/18 05:01 06/24/18 06:00 Temperature Pulse Rate 85 84 84 Respiratory Rate 17 16 15 Blood Pressure 132/62 157/71 H Pulse Oximetry 98 98 98 06/24/18 06:01 06/24/18 08:00 06/24/18 09:04 Temperature 98.3 F Pulse Rate 86 79 81 Respiratory Rate 16 16 22 Blood Pressure 157/71 H 153/69 H Pulse Oximetry 98 98 Intake & Output 06/23/18 06/24/18 06/24/18 18:59 06:59 18:59 Intake Total 2350 / 2350 1842 / 1842 250 / 250 Output Total 400 / 400 600 / 600 Balance 1950 / 1950 1242 / 1242 250 / 250 Weight 81 kg 76.2 kg Intake: IV 2100 / 2100 1342 / 1342 D5W Inj 1,000 ML @ 125 mls/hr 1342 / 1342 IV.CONT .Q8H CELESTE Rx#:[id number] NS Inj 1,000 ML @ Wide Open IV. 1999 SIG BOLUS ONE Rx#:[id number] Rocephin Inj 2,000 MG In NS Inj 100 / 100 100 ML @ 200 mls/hr IV.SIG ONCE ONE Rx#:[id number] Oral 0 / 0 Water Bolus Amount 250 / 250 Free Water Amount 250 / 250 250 / 250 250 / 250 Output: Urine Amount (Catheter) 400 / 400 600 / 600 Indwelling Urethral Catheter 400 / 400 600 / 600 Other: # Bowel Movements 0 Weight On Admission 81 kg Result Diagrams: 06/24/18 03:37 06/24/18 03:37 Imaging: Chest X-Ray 06/23/18 13:40 CONCLUSION: 1. No acute abnormality or significant interval change. Head CT 06/23/18 13:40 CONCLUSION: 1. No acute intracranial abnormality. 2. Redemonstration of remote left MCA territory infarction with encephalomalacia and ex vacuo dilatation of the lateral ventricle. . . Objective Remarks: GENERAL: 72-year-old female currently resting in bed in no acute distress SKIN: Warm and dry. HEAD: Atraumatic. Normocephalic. EYES: Pupils equal and round. No scleral icterus. No injection or drainage. ENT: No nasal bleeding or discharge. Mucous membranes pink and moist. NECK: Trachea midline. No JVD. CARDIOVASCULAR: Regular rate and rhythm. S1, S2. No S4. RESPIRATORY: No accessory muscle use. Clear to auscultation. Breath sounds equal bilaterally. GASTROINTESTINAL: Abdomen soft, non-tender, nondistended. G-tube site is clean dry and intact MUSCULOSKELETAL: Extremities without clubbing, cyanosis, or edema. No obvious deformities. NEUROLOGICAL: Right-sided weakness. Nonsensical words. Assessment and Plan - Assessment and Plan Plan: Neuro/Psych: Acute toxic metabolic encephalopathy secondary to hyperammonia/hypernatremia History of left MCA CVA Dementia disorder/vascular Schizoaffective disorder Restart phenytoin at 125 mg 3 times daily. Levels 5.9. Acetaminophen 650 by tube every 6 hours as needed fever Neuro check CV: History of atrial fibrillation currently normal sinus rhythm Essential hypertension Hyperlipidemia Restart carvedilol 6.25 mg twice daily for hypertension. As needed labetalol, hydralazine Nitropaste ordered Restart pravastatin 20 mg daily for dyslipidemia. Resp: Currently on room air Albuterol/ipratropium aerosols every 6 hours with albuterol aerosols every 2 hours as needed dyspnea Incentive spirometry while awake GI: Chronic dysphagia status post PEG tube placement Hiatal hernia Irritable bowel syndrome Hyperammonia Start tube feedings with Nepro goal 50 cc an hour Lansoprazole for GI prophylaxis. On famotidine 20 twice daily at home. Docusate substance 1 tablet twice daily for bowel regimen On lactulose 30 cc every 6 hours Add Xifaxan 550 twice daily : Rosales catheter for accurate I's and O's Endo: Sliding scale insulin with Accu-Cheks to maintain euglycemia TSH 0.79 Renal: Acute kidney injury Monitor urine output Accurate I's and O's Currently D5 water 125 cc an hour Heme: History of breast cancer Thrombocytopenia Monitor CBC daily. Follow trends. No indication for transfusion of blood products at this time. ID: MRSA nares positive Currently on ceftriaxone day #2 Blood cultures x2 pending. Mupirocin twice daily times 10 days MSK: PT evaluate and treat FEN: Hypernatremia Hypopotassemia Hyper magnesium Free water 300 cc every 6 hours. On every 4 hours a [facility]. Currently D5 water 125 cc an hour. Serial sodiums every 6 hours. Check urine electrolytes. Osm serum/urine Access -Utilize peripheral IV. Central line if indicated Prophylaxis -GI -lansoprazole -DVT -SCD/holding pharmacological prophylaxis with complaints of 44 Level 3 follow-up
[2018-06-24] MEDS ORDERED: hydrALAZINE HCl Inj 20 MG/ML Vial IV.PUSH PRN (10:01)
[2018-06-24] MEDS ORDERED: Labetalol HCl Inj 100 MG/20 ML Vial IV.PUSH PRN (10:02)
--- NOTE | 2018-06-24 10:41 | P.DIET ---
Nutritional Evaluation Type of nutrition evaluation: initial Nutrition consult regarding: Tube Feeding Nutrition screening: [place] (TF'ing) Screening comments: 06/23/18 [place] for TF'ing Objective - Diagnosis hypernatremia, UTI, hyperammonia, AMS - Objective Body Mass Index: 27.3 % IBW: 129 (IBW = 130lb) Body Weight Used for Calculations: Actual (76.2kg) Energy Needs - Lower Range (kCal/kg): 25 Energy Needs - Upper Range (kCal/kg): 30 Lower Limit kCal/kg (kCals): 1,905 Upper Limit kCal/kg (kCals): 2,286 Lower Limit Protein Factor (Grams per Kg): 0.8 Upper Limit Protein Factor (Grams per Kg): 1.0 Lower Protein Needs (Protein): 61 Upper Protein Needs (Protein): 76 Dietitian Reviewed in Medical Record: Curent medications, Intake & Output, Labs , Medical history, Tube feeding Diet Order: NPO Objective Comments: PMH: CKD, CVA, filure to thrive, GI bleed, HF, IBS, schizoaffective disorder Meds: insulin, nephrocaps, dilantin TID Labs: Na 169, BUN 59, Cr 1.79, GFR 34, random glucoes 155 130, Ca+ 7.4 Assessment Assessment: Pt currently at nutritional risk r/t need for TF'ing as nutritional support. Pt currently receiving TF'ing of Nepro 1.8 @ 50mL/hr per MD. RD to recommend Suplena 1.8 @ 60mL x 18 hours (d/t Dilantin dosing TID, TF held 1 hour before, 1 hour after) w/ Beneprotein TID to provide a total of 2019kcal, 67g of protein , and 820mL of free water to best meet pts nutritional needs. Free water flushes per MD, advance TF as tolerated. Continue to monitor TF tolerance. Labs reviewed, dietitian following. Recommendations: 1. RD to recommend Suplena 1.8 @ 60mL x 18 hours (d/t Dilantin dosing TID, TF held 1 hour before, 1 hour after) w/ Beneprotein TID to best meet pts nutritional needs 2. Free water flushes per MD, advance TF as tolerated 3. Continue to monitor TF tolerance 4. Dietitian following Dietitian to Monitor: Lab values, Renal labs, Glucose level, Intake & Output, Tube feeding tolerance, Weight change, PO Intake, Medical course
[2018-06-24] MEDS: Phenytoin 50 MG Chewable Tablet G-TUBE SCH ×3 (10:44→17:26)
[2018-06-24] MEDS: Vitamin B Complex/Vit C/Folic Tablet PO SCH (10:45)
[2018-06-24 11:55] LABS: Chloride,Urine Random 61 meq/L; Creatinine,Urine Random 48 mg/dL (27-300); Potassium,Urine Random 12 meq/L; Sodium,Urine Random 83 meq/L
[2018-06-24] MEDS ORDERED: STERILE G-TUBE SCH (12:00)
[2018-06-24] MEDS ORDERED: WATER FOR INJECTION G-TUBE SCH (12:00)
[2018-06-24 12:28] LABS: Potassium 4.3 meq/L (3.5-5.1)
[2018-06-24 12:29] LABS: Osmolality,Urine 503 mosm/kg (300-1300)
[2018-06-24 12:38] LABS: Thyroid Stimulating Hormone 1.09 uIU/mL (0.358-3.740)
[2018-06-24] MEDS ORDERED: Labetalol HCl Inj 20 MG/4 ML Vial IV.PUSH PRN (16:30)
[2018-06-24] MEDS: rifAXIMin 550 MG Tablet PO SCH (21:45)
--- NOTE | 2018-06-24 22:23 | ECG ---
Date Performed: 06/23/2018 Time Performed: 13:41:26 PTAGE: 72 years EKG: Sinus rhythm WITH FIRST DEGREE AV BLOCK NONSPECIFIC T-WAVE ABNORMALITY PROLONGED QT INTERVAL ABNORMAL ECG NO PREVIOUS TRACING DOCTOR: Jimmie Fairbanks Interpretating Date/Time 06/24/2018 22:23:14
[2018-06-25] MEDS: Dextrose 5% in Water Inj 1,000 ML IV.CONT SCH (00:30)
[2018-06-25] MEDS: Insulin NovoLOG Aspart Correctional Sugar Inj SQ SCH ×6 (00:44→21:33)
[2018-06-25] MEDS: Chlorhexidine Gluconate 2% 1 Pack (2 Cloths) TOPICAL SCH (04:12)
[2018-06-25 06:52] LABS: Albumin 2.1 g/dL (3.4-5.0); Calcium 7.2 mg/dL (8.5-10.1); Magnesium 3.5 mg/dL (1.5-2.5); Phosphorus 3.7 mg/dL (2.5-4.9); Potassium 3.8 meq/L (3.5-5.1)
[2018-06-25 06:57] LABS: Baso % (Auto) 0.3 % (0.0-2.0); Eos # (Auto) 0.4 th/mm3 (0.0-0.4); Eos % (Auto) 5.5 % (0.0-4.0); Hematocrit 36.9 % (35.0-46.0); Hemoglobin 11.7 gm/dL (11.6-15.3); Lymph # (Auto) 1.8 th/mm3 (1.0-4.8); Lymph % (Auto) 25.8 % (9.0-44.0); Mean Corpuscular HGB Conc 31.6 % (32.0-36.0); Mean Corpuscular Hemoglobin 29.5 pg (27.0-34.0); Mean Corpuscular Volume 93.4 fL (80.0-100.0); Mean Platelet Volume 11.5 fL (7.0-11.0); Mono # (Auto) 0.6 th/mm3 (0.0-0.9); Neut # (Auto) 4.3 th/mm3 (1.8-7.7); Neut % (Auto) 60.4 % (16.0-70.0); Platelet Count 45 th/mm3 (150-450); Red Blood Count 3.96 mil/mm3 (4.00-5.30); Red Cell Distribution Width 16.2 % (11.6-17.2)
--- NOTE | 2018-06-25 07:52 | P.PNCC ---
Subjective Subjective Remarks/Hospital Course: The patient is a 72-year-old female with a past medical history of a CVA, breast cancer, hypertension, dysphagia with a previous PEG tube placement, vascular dementia, schizoaffective disorder, atrial fibrillation and chronic kidney disease. She was transferred from a local nursing facility after the patient was found in bed, unresponsive. It is unclear when she was last seen normal. The patient is nonverbal at baseline and does not follow any commands. Her laboratory data significant for severe hypernatremia with a sodiumlevel of 171, acute renal failure with creatinine 1.99 and elevated ammonia level at 137. Her urinalysis was positive for UTI. In the ED, the patient was given 1 liter of normal saline and Rocephin. CT scan of the brain showed no acute intracranial findings and chest x-ray showed no acute cardiopulmonary disease. History is limited as the patient is nonverbal. 06/24: Currently arousable and following commands intermittently. Will restart tube feeding today. Sodium is 169. Ammonia was 137 yesterday. SUBJECTIVE: 06/25: Again arrest on the ventilator. Sodium is down to 153. Ammonia level still pending. Intermittently following commands. Advancing tube feeding. Objective Vital Signs / I&O: Vital Signs 06/24/18 08:00 06/24/18 09:00 06/24/18 09:04 Temperature 98.3 F Pulse Rate 79 83 81 Respiratory Rate 16 26 H 22 Blood Pressure 153/69 H 142/100 H Pulse Oximetry 98 97 06/24/18 10:00 06/24/18 10:01 06/24/18 11:00 Temperature Pulse Rate 81 82 82 Respiratory Rate 33 H 23 16 Blood Pressure 135/61 146/66 H Pulse Oximetry 96 98 98 06/24/18 12:00 06/24/18 12:01 06/24/18 13:00 Temperature 98.2 F Pulse Rate 81 81 84 Respiratory Rate 21 25 H 30 H Blood Pressure 143/61 H 143/61 H Pulse Oximetry 98 100 99 06/24/18 13:01 06/24/18 14:00 06/24/18 15:00 Temperature Pulse Rate 82 82 82 Respiratory Rate 27 H 22 19 Blood Pressure 112/64 136/70 136/62 Pulse Oximetry 98 99 98 06/24/18 15:51 06/24/18 16:00 06/24/18 17:00 Temperature 98.3 F Pulse Rate 82 81 91 H Respiratory Rate 16 27 H 17 Blood Pressure 148/65 H Pulse Oximetry 100 100 98 06/24/18 17:01 06/24/18 17:56 06/24/18 18:00 Temperature Pulse Rate 92 H 87 90 Respiratory Rate 18 45 H Blood Pressure 149/71 H Pulse Oximetry 99 100 06/24/18 18:01 06/24/18 19:00 06/24/18 19:01 Temperature Pulse Rate 89 86 88 Respiratory Rate 32 H 29 H 25 H Blood Pressure 147/61 H 136/63 Pulse Oximetry 100 100 100 06/24/18 20:00 06/24/18 21:00 06/24/18 21:36 Temperature 98.9 F Pulse Rate 88 93 H 90 Respiratory Rate 29 H 44 H 18 Blood Pressure 142/64 H 163/74 H Pulse Oximetry 100 98 100 06/24/18 22:00 06/24/18 22:01 06/24/18 23:00 Temperature Pulse Rate 90 88 83 Respiratory Rate 28 H 24 45 H Blood Pressure 133/60 125/64 Pulse Oximetry 100 93 L 86 L 06/25/18 00:00 06/25/18 01:00 06/25/18 02:00 Temperature Pulse Rate 86 83 87 Respiratory Rate 36 H 7 L 39 H Blood Pressure 123/70 134/70 143/66 H Pulse Oximetry 97 98 96 06/25/18 03:00 06/25/18 03:30 06/25/18 04:00 Temperature Pulse Rate 86 89 89 Respiratory Rate 14 20 28 H Blood Pressure 164/71 H Pulse Oximetry 97 98 06/25/18 04:01 06/25/18 05:00 06/25/18 05:07 Temperature Pulse Rate 88 90 89 Respiratory Rate 35 H 25 H 23 Blood Pressure 151/66 H 142/59 H Pulse Oximetry 98 97 98 06/25/18 05:14 06/25/18 06:00 06/25/18 07:38 Temperature Pulse Rate 88 90 88 Respiratory Rate 39 H 36 H 18 Blood Pressure 126/59 L 118/67 Pulse Oximetry 99 98 98 Intake & Output 06/24/18 06/25/18 06/25/18 18:59 06:59 18:59 Intake Total 2582 / 2582 1727 / 1727 Output Total 525 / 525 Balance 2056 2056 1727 / 1727 Weight 76.7 kg Intake: IV 758 / 758 396 / 396 D5W Inj 1,000 ML @ 125 mls/hr 658 / 658 396 / 396 IV.CONT .Q8H CELESTE Rx#:[id number] Rocephin Inj 1,000 MG In NS Inj 100 / 100 100 ML @ 200 mls/hr IV.SIG Q24H CELESTE Rx#:[id number] Tube Feeding 74 / 74 131 / 131 Water Bolus Amount 900 / 900 600 / 600 Free Water Amount 850 / 850 600 / 600 Output: Urine Amount (Catheter) 525 / 525 Indwelling Urethral Catheter 525 / 525 Other: # Incontinent Voids 4 Date of Last Bowel Movement 06/24/18 06/25/18 # Bowel Movements 2 # Incontinent Bowel Movements 10 Result Diagrams: 06/25/18 06:16 06/25/18 06:16 Other Results: Microbiology 06/23/18 14:25 Clean Catch Urine Urine Culture - Preliminary gram negative rods 06/23/18 14:25 Blood - Peripheral Aerobic Blood Culture - Preliminary No growth in 1 day 06/23/18 14:25 Blood - Peripheral Anaerobic Blood Culture - Preliminary No growth in 1 day 06/23/18 14:30 Blood - Peripheral Aerobic Blood Culture - Preliminary No growth in 1 day 06/23/18 14:30 Blood - Peripheral Anaerobic Blood Culture - Preliminary No growth in 1 day Imaging: Chest X-Ray 06/23/18 13:40 CONCLUSION: 1. No acute abnormality or significant interval change. Head CT 06/23/18 13:40 CONCLUSION: 1. No acute intracranial abnormality. 2. Redemonstration of remote left MCA territory infarction with encephalomalacia and ex vacuo dilatation of the lateral ventricle. . . Objective Remarks: GENERAL: 72-year-old female currently resting in bed in no acute distress SKIN: Warm and dry. HEAD: Atraumatic. Normocephalic. EYES: Pupils equal and round. No scleral icterus. No injection or drainage. ENT: No nasal bleeding or discharge. Mucous membranes pink and moist. NECK: Trachea midline. No JVD. CARDIOVASCULAR: Regular rate and rhythm. S1, S2. No S4. RESPIRATORY: No accessory muscle use. Clear to auscultation. Breath sounds equal bilaterally. GASTROINTESTINAL: Abdomen soft, non-tender, nondistended. G-tube site is clean dry and intact MUSCULOSKELETAL: Extremities without clubbing, cyanosis, or edema. No obvious deformities. NEUROLOGICAL: Subjective right-sided weakness. Leading to the right. Attempts words. Assessment and Plan - Assessment and Plan Plan: Neuro/Psych: Acute toxic metabolic encephalopathy secondary to hyperammonia/hypernatremia History of left MCA CVA Dementia disorder/vascular Schizoaffective disorder Restart phenytoin at 125 mg 3 times daily. Levels 5.9. Acetaminophen 650 by tube every 6 hours as needed fever Neuro check CV: History of atrial fibrillation currently normal sinus rhythm Essential hypertension Hyperlipidemia Restart carvedilol 6.25 mg twice daily for hypertension. As needed labetalol, hydralazine Nitropaste ordered Restart pravastatin 20 mg daily for dyslipidemia. Resp: Currently on room air Albuterol/ipratropium aerosols every 6 hours with albuterol aerosols every 2 hours as needed dyspnea Incentive spirometry while awake GI: Chronic dysphagia status post PEG tube placement Hiatal hernia Irritable bowel syndrome Hyperammonia Continue tube feeds with Suplena goal 60 cc an hour. Lansoprazole for GI prophylaxis. On famotidine 20 twice daily at home. Docusate substance 1 tablet twice daily for bowel regimen On lactulose 30 cc every 6 hours Add Xifaxan 550 twice daily a.m. ammonia levels currently pending : Rosales catheter for accurate I's and O's Endo: Sliding scale insulin with Accu-Cheks to maintain euglycemia TSH 0.79 and 1.09 Renal: Acute kidney injury Monitor urine output Accurate I's and O's Currently D5 water 125 cc an hour discontinued today 06/25. Heme: History of breast cancer Thrombocytopenia Monitor CBC daily. Follow trends. No indication for transfusion of blood products at this time. ID: MRSA nares positive Gram-negative hodan urinary tract infection Currently on ceftriaxone day #3 Blood cultures x2 pending. Mupirocin to nares twice daily times 10 days MSK: PT evaluate and treat FEN: Hypernatremia Hyper magnesium Free water 300 cc every 6 hours. [facility] Currently D5 water 125 cc an hour. Discontinued today 06/25 Serial sodiums every 6 hours. Receptive symptoms currently 153 Check urine electrolytes. Osm serum/urine Access -Utilize peripheral IV. Central line if indicated Prophylaxis -GI -lansoprazole -DVT -SCD/holding pharmacological prophylaxis with complaints of 44 Level 2 follow-up. Stable from critical care medicine standpoint. Assign care to hospitalist in a.m. 06/26. Okay to transfer from ICU to general medical floor
[2018-06-25] MEDS: rifAXIMin 550 MG Tablet PO SCH ×2 (08:31→21:35)
[2018-06-25] MEDS: Phenytoin 50 MG Chewable Tablet G-TUBE SCH ×3 (08:31→17:29)
[2018-06-25] MEDS: Vitamin B Complex/Vit C/Folic Tablet PO SCH (08:31)
[2018-06-25] MEDS: Mupirocin 2% Nasal Oint Topical Syringe EACH NARE SCH ×2 (08:31→21:36)
[2018-06-26] MEDS: Insulin NovoLOG Aspart Correctional Sugar Inj SQ SCH ×6 (01:06→21:45)
[2018-06-26] MEDS: Chlorhexidine Gluconate 2% 1 Pack (2 Cloths) TOPICAL SCH (06:27)
--- NOTE | 2018-06-26 08:43 | P.PNIM ---
Subjective Interval history: f/u; hypernatremia/UTI in no acute distress. awake and responds to my questions with moving her head. no fever. Physical Exam Vital signs: Vital Signs 06/25/18 10:00 06/25/18 12:00 06/25/18 14:00 Temperature 98.8 F Pulse Rate 84 80 87 Respiratory Rate 16 Blood Pressure 91/51 L Pulse Oximetry 98 06/25/18 15:00 06/25/18 16:00 06/25/18 20:00 Temperature 98.5 F 98.4 F Pulse Rate 82 90 96 H Respiratory Rate 16 18 20 Blood Pressure 151/66 H 168/98 H Pulse Oximetry 99 96 06/25/18 20:28 06/25/18 21:24 06/26/18 00:00 Temperature 98.6 F Pulse Rate 76 85 Respiratory Rate 16 20 Blood Pressure 143/66 H Pulse Oximetry 96 98 06/26/18 03:51 06/26/18 08:00 Temperature 98.0 F Pulse Rate 65 87 Respiratory Rate 16 20 Blood Pressure 149/65 H Pulse Oximetry 99 Intake & Output 06/25/18 06/26/18 06/26/18 18:59 06:59 18:59 Intake Total 1163 / 1163 600 / 600 Balance 1163 / 1163 600 / 600 Weight 73.8 kg Intake: IV 100 / 100 Rocephin Inj 1,000 MG In NS Inj 100 / 100 100 ML @ 200 mls/hr IV.SIG Q24H CELESTE Rx#:[id number] Tube Feeding 163 / 163 Water Bolus Amount 300 / 300 Free Water Amount 600 / 600 600 / 600 Other: # Voids 1 1 # Incontinent Voids 3 Date of Last Bowel Movement 06/25/18 06/25/18 # Bowel Movements 1 3 Constitutional no acute distress Routine Respiratory Exam Present CTA bilaterally Routine Cardiovascular Exam Present RRR Routine Abdominal Exam Present soft Routine Extremities Exam Comments: no pedal edema. Routine Neurological Exam awake. Urinary Catheter Management Indwelling Urethral Catheter: Cath placed during this visit: yes, but has since been removed by the nurse Reason for continuing: Hourly intake/output Insertion date: 06/23/18 Insertion time: 14:50 Removal date: 06/24/18 Removal time: 15:45 Results Labs CBC & Chem 7: 06/25/18 06:16 06/25/18 06:16 Labs: Microbiology 06/23/18 14:25 Blood - Peripheral Aerobic Blood Culture - Preliminary No growth in 2 days 06/23/18 14:25 Blood - Peripheral Anaerobic Blood Culture - Preliminary No growth in 2 days 06/23/18 14:30 Blood - Peripheral Aerobic Blood Culture - Preliminary No growth in 2 days 06/23/18 14:30 Blood - Peripheral Anaerobic Blood Culture - Preliminary No growth in 2 days 06/23/18 14:25 Clean Catch Urine Urine Culture - Final Klebsiella pneumoniae Assessment and Plan Plan A/P Acute toxic metabolic encephalopathy secondary to hyperammonemia/hypernatremia- seems to be improving. History of left MCA CVA Dementia disorder/vascular Schizoaffective disorder Restarted phenytoin at 125 mg 3 times daily. Levels 5.9; continue to monitor the level. Neuro check History of atrial fibrillation currently normal sinus rhythm Essential hypertension Hyperlipidemia Restarted carvedilol 6.25 mg twice daily for hypertension. Restarted pravastatin 20 mg daily for dyslipidemia. Chronic dysphagia status post PEG tube placement Hiatal hernia Irritable bowel syndrome Hyperammonia Continue tube feeds with Suplena goal 60 cc an hour. Lansoprazole for GI prophylaxis. On famotidine 20 twice daily at home. Docusate substance 1 tablet twice daily for bowel regimen On lactulose 30 cc every 6 hours Added Xifaxan 550 twice daily : Rosales catheter for accurate I's and O's Sliding scale insulin with Accu-Cheks to maintain euglycemia TSH 0.79 and 1.09 Acute kidney injury Monitor urine output Accurate I's and O's IV fluid dc'ed. History of breast cancer Thrombocytopenia Monitor CBC daily. Follow trends. No indication for transfusion of blood products at this time. MRSA nares positive Gram-negative hodan urinary tract infection Currently on ceftriaxone day #3 Blood cultures x2 negative so far. Mupirocin to nares twice daily times 10 days MSK: PT evaluate and treat Hypernatremia Hyper magnesium Free water 300 cc every 6 hours. On every 4 hours a residential. Prophylaxis -GI -lansoprazole -DVT -SCD/holding pharmacological prophylaxis with thrombocytopenia Discharge Planning: back to SNF within the next 24-48 hrs if stable. Progress Note: Quality VTE Deep Vein Thrombosis/Pulmonary Embolism Present on Admission: No
[2018-06-26] MEDS: Mupirocin 2% Nasal Oint Topical Syringe EACH NARE SCH ×2 (09:36→21:45)
[2018-06-26] MEDS: rifAXIMin 550 MG Tablet PO SCH ×2 (09:36→21:45)
[2018-06-26] MEDS: Vitamin B Complex/Vit C/Folic Tablet PO SCH (09:36)
[2018-06-26] MEDS: Phenytoin 50 MG Chewable Tablet G-TUBE SCH ×3 (10:52→18:21)
[2018-06-27] MEDS: Insulin NovoLOG Aspart Correctional Sugar Inj SQ SCH ×7 (00:22→23:29)
[2018-06-27] MEDS: Chlorhexidine Gluconate 2% 1 Pack (2 Cloths) TOPICAL SCH (08:40)
[2018-06-27] MEDS: rifAXIMin 550 MG Tablet PO SCH ×2 (08:47→20:32)
[2018-06-27] MEDS: Vitamin B Complex/Vit C/Folic Tablet PO SCH (08:47)
[2018-06-27] MEDS: Phenytoin 50 MG Chewable Tablet G-TUBE SCH ×3 (08:48→17:24)
[2018-06-27] MEDS: Mupirocin 2% Nasal Oint Topical Syringe EACH NARE SCH ×2 (08:48→20:32)
--- NOTE | 2018-06-27 11:46 | P.PNIM ---
Subjective Interval history: in no acute distress. awake and more alert. denies pain. no fever. Physical Exam Vital signs: Vital Signs 06/26/18 12:00 06/26/18 13:04 06/26/18 16:00 Temperature 98.1 F 97.7 F Pulse Rate 85 80 Respiratory Rate 18 20 18 Blood Pressure 128/65 144/67 H Pulse Oximetry 100 99 06/26/18 20:00 06/27/18 00:00 06/27/18 08:00 Temperature 98.1 F 98.0 F 98.4 F Pulse Rate 91 H 87 93 H Respiratory Rate 18 20 18 Blood Pressure 151/63 H 155/66 H 122/61 Pulse Oximetry 96 93 L 94 L 06/27/18 09:20 Temperature Pulse Rate Respiratory Rate Blood Pressure Pulse Oximetry 94 L Intake & Output 06/26/18 06/27/18 06/27/18 18:59 06:59 18:59 Intake Total 1803 / 1803 1770 / 1770 300 / 300 Balance 1803 / 1803 1770 / 1770 300 / 300 Weight 74 kg Intake: IV 100 / 100 Rocephin Inj 1,000 MG In NS Inj 100 / 100 100 ML @ 200 mls/hr IV.SIG Q24H CELESTE Rx#:[id number] Tube Feeding 503 / 503 450 / 450 Tube Irrigant 120 / 120 Water Bolus Amount 600 / 600 600 / 600 Free Water Amount 600 / 600 600 / 600 300 / 300 Other: # Voids 3 # Incontinent Voids 2 Date of Last Bowel Movement 06/26/18 06/27/18 # Bowel Movements 2 # Incontinent Bowel Movements 3 Constitutional no acute distress Routine Respiratory Exam Present CTA bilaterally Routine Cardiovascular Exam Present RRR Routine Abdominal Exam Present soft Comments: PEG in place. Routine Extremities Exam Comments: no pedal edema. Routine Neurological Exam Present alert and more alert. Urinary Catheter Management Indwelling Urethral Catheter: Cath placed during this visit: yes, but has since been removed by the nurse Reason for continuing: Hourly intake/output Insertion date: 06/23/18 Insertion time: 14:50 Removal date: 06/24/18 Removal time: 15:45 Results Labs CBC & Chem 7: 06/25/18 06:16 06/25/18 06:16 Labs: Microbiology 06/23/18 14:25 Blood - Peripheral Aerobic Blood Culture - Preliminary No growth in 4 days 06/23/18 14:25 Blood - Peripheral Anaerobic Blood Culture - Preliminary No growth in 4 days 06/23/18 14:30 Blood - Peripheral Aerobic Blood Culture - Preliminary No growth in 4 days 06/23/18 14:30 Blood - Peripheral Anaerobic Blood Culture - Preliminary No growth in 4 days Assessment and Plan Plan A/P Acute toxic metabolic encephalopathy secondary to hyperammonemia/hypernatremia- seems to be improving. History of left MCA CVA Dementia disorder/vascular Schizoaffective disorder Restarted phenytoin at 125 mg 3 times daily. Levels 5.9; continue to monitor the level. Neuro check History of atrial fibrillation currently normal sinus rhythm Essential hypertension Hyperlipidemia Restarted carvedilol 6.25 mg twice daily for hypertension. Restarted pravastatin 20 mg daily for dyslipidemia. Chronic dysphagia status post PEG tube placement Hiatal hernia Irritable bowel syndrome Hyperammonemia Continue tube feeds with Suplena goal 60 cc an hour. Lansoprazole for GI prophylaxis. On famotidine 20 twice daily at home. Docusate substance 1 tablet twice daily for bowel regimen On lactulose 30 cc every 6 hours Added Xifaxan 550 twice daily Sliding scale insulin with Accu-Cheks to maintain euglycemia TSH 0.79 and 1.09 Acute kidney injury- improved. History of breast cancer Thrombocytopenia Monitor CBC daily. Follow trends. No indication for transfusion of blood products at this time. MRSA nares positive Gram-negative hodan urinary tract infection Currently on ceftriaxone Blood cultures x2 negative so far. Mupirocin to nares twice daily times 10 days MSK: PT evaluate and treat Hypernatremia Hyper magnesium Free water 300 cc every 6 hours. On every 4 hours a chcf. Prophylaxis -GI -lansoprazole -DVT -SCD/holding pharmacological prophylaxis with thrombocytopenia Discharge Planning: back to SNF within the next 24 hrs if stable-pending the blood tests today. Progress Note: Quality VTE Deep Vein Thrombosis/Pulmonary Embolism Present on Admission: No
[2018-06-27 19:05] LABS: Baso % (Auto) 0.3 % (0.0-2.0); Eos # (Auto) 0.4 th/mm3 (0.0-0.4); Eos % (Auto) 7.2 % (0.0-4.0); Hematocrit 34.4 % (35.0-46.0); Lymph # (Auto) 1.6 th/mm3 (1.0-4.8); Lymph % (Auto) 29.6 % (9.0-44.0); Mean Corpuscular HGB Conc 32.1 % (32.0-36.0); Mean Corpuscular Hemoglobin 29.7 pg (27.0-34.0); Mean Corpuscular Volume 92.5 fL (80.0-100.0); Mono # (Auto) 0.5 th/mm3 (0.0-0.9); Mono % (Auto) 8.7 % (0.0-8.0); Neut % (Auto) 54.2 % (16.0-70.0); Platelet Count 48 th/mm3 (150-450); Red Blood Count 3.72 mil/mm3 (4.00-5.30); Red Cell Distribution Width 15.5 % (11.6-17.2); White Blood Count 5.5 th/mm3 (4.0-11.0)
[2018-06-27 19:23] LABS: Calcium 7.7 mg/dL (8.5-10.1); Carbon Dioxide 24.6 meq/L (21.0-32.0); Phenytoin (Dilantin) 6.2 mcg/mL (10.0-20.0); Potassium 3.2 meq/L (3.5-5.1)
[2018-06-28 00:19] VITALS: RESP 17
[2018-06-28] MEDS: Chlorhexidine Gluconate 2% 1 Pack (2 Cloths) TOPICAL SCH (04:47)
[2018-06-28] MEDS: Insulin NovoLOG Aspart Correctional Sugar Inj SQ SCH ×3 (04:47→13:42)
--- NOTE | 2018-06-28 08:55 | P.PNIM ---
Subjective Interval history: f/u; hypernatremia in no acute distress. awake and alert. denies pain. Physical Exam Vital signs: Vital Signs 06/27/18 09:20 06/27/18 12:00 06/27/18 16:00 Temperature 98.5 F 97.5 F L Pulse Rate 79 88 Respiratory Rate 18 18 Blood Pressure 112/56 L 118/58 L Pulse Oximetry 94 L 94 L 94 L 06/27/18 20:00 06/27/18 20:23 06/28/18 00:00 Temperature 98.4 F 97.6 F Pulse Rate 82 87 Respiratory Rate 20 17 Blood Pressure 158/69 H 135/60 Pulse Oximetry 95 95 94 L Intake & Output 06/27/18 06/28/18 06/28/18 18:59 06:59 18:59 Intake Total 1714 / 1714 1440 / 1440 Balance 1714 / 1714 1440 / 1440 Weight 74 kg Intake: IV 100 / 100 Rocephin Inj 1,000 MG In NS Inj 100 / 100 100 ML @ 200 mls/hr IV.SIG Q24H CELESTE Rx#:[id number] Tube Feeding 414 / 414 840 / 840 Tube Irrigant 600 / 600 Free Water Amount 600 / 600 600 / 600 Other: # Voids 3 Date of Last Bowel Movement 06/27/18 06/27/18 # Bowel Movements 2 Constitutional no acute distress Routine Respiratory Exam Present CTA bilaterally Routine Cardiovascular Exam Present RRR Routine Abdominal Exam Present soft Routine Extremities Exam Comments: no pedal edema. Routine Neurological Exam Present alert Urinary Catheter Management Indwelling Urethral Catheter: Cath placed during this visit: yes, but has since been removed by the nurse Reason for continuing: Hourly intake/output Insertion date: 06/23/18 Insertion time: 14:50 Removal date: 06/24/18 Removal time: 15:45 Results Labs CBC & Chem 7: 06/27/18 18:41 06/27/18 18:41 Labs: Microbiology 06/23/18 14:25 Blood - Peripheral Aerobic Blood Culture - Preliminary No growth in 4 days 06/23/18 14:25 Blood - Peripheral Anaerobic Blood Culture - Preliminary No growth in 4 days 06/23/18 14:30 Blood - Peripheral Aerobic Blood Culture - Preliminary No growth in 4 days 06/23/18 14:30 Blood - Peripheral Anaerobic Blood Culture - Preliminary No growth in 4 days Assessment and Plan Plan A/P Acute toxic metabolic encephalopathy secondary to hyperammonemia/hypernatremia- seems to be improving and now at her baseline. History of left MCA CVA Dementia disorder/vascular Schizoaffective disorder continue phenytoin at 125 mg 3 times daily. Levels 6.2 ; will give an extra dose today- monitor the level as outpatient. History of atrial fibrillation currently normal sinus rhythm Essential hypertension Hyperlipidemia Restarted carvedilol 6.25 mg twice daily for hypertension. Restarted pravastatin 20 mg daily for dyslipidemia. Chronic dysphagia status post PEG tube placement Hiatal hernia Irritable bowel syndrome Hyperammonemia Continue tube feeds with Suplena goal 60 cc an hour. Lansoprazole for GI prophylaxis. On famotidine 20 twice daily at home. Docusate substance 1 tablet twice daily for bowel regimen On lactulose 30 cc every 6 hours Added Xifaxan 550 twice daily Sliding scale insulin with Accu-Cheks to maintain euglycemia TSH 0.79 and 1.09 Acute kidney injury- improved. History of breast cancer Thrombocytopenia Monitor CBC daily. Follow trends. No indication for transfusion of blood products at this time. MRSA nares positive Gram-negative hodan urinary tract infection Currently on ceftriaxone Blood cultures x2 negative so far. Mupirocin to nares twice daily times 10 days MSK: PT evaluate and treat Hypernatremia-improved. Free water 300 cc every 6 hours. On every 4 hours a snf. Prophylaxis -GI -lansoprazole -DVT -SCD/holding pharmacological prophylaxis with thrombocytopenia Discharge Planning: back to SNF today. see med list. f/u; pcp. time spent 35 min. Progress Note: Quality VTE Deep Vein Thrombosis/Pulmonary Embolism Present on Admission: No
--- NOTE | 2018-06-28 09:03 | P.DS ---
DS: Providers Date of admission: 06/23/18 16:12 Primary care physician: Sean Stein MD Consults: 06/25/18 07:44 Consult to Hospitalist Routine Consulting Provider: Reema Cabrera Reason for Consultation: [place] of care in a.m. 06/26. Admission with hypernatremia. Notified:: Service Spoke with:: Art Date Notified:: 06/25/18 Time Notified:: 07:55 Comments:: waiting on assignment Ordering Provider: MINE 06/25/18 12:34 HUB Only Consult Order Routine Consulting Provider: Amparo Christensen 06/25/18 16:49 HUB Only Consult Order [facility] 06/26/18 09:28 HUB Only Consult Order Routine Consulting Provider: [facility] DS: Summary patient was admitted with acute encephalopathy, hypernatremia and hyperammonemia and UTI. she was started on water via PEG, lactulose and IV antibiotic. her sodium level improved along with her ammonia level. her mental status improved and now at her baseline. her dilantin level improved although still subtherapeutic. she was continue on her Dilantin; Dilantin level to be monitored as outpatient. she will be discharged back to SNF. she will continue with oral antibiotic to finish the course of antibiotics as outpatient. Time Spent with Patient Total time spent providing and/or coordinating discharge services: Greater than 30 minutes Specific discharge activities: 35 min. Quality: VTE Deep Vein Thrombosis/Pulmonary Embolism Present on Admission: No Exam Narrative Exam Narrative: patient in no acute distress. S1/S2 heard/abdomen is soft/ no pedal edema/ bilateral air entry present/ mental status has improve and now awake and responsive. Results Labs on day of discharge: Labs from last 24 hours 06/28/18 06/28/18 06/27/18 08:18 04:46 23:11 WBC RBC Hgb Hct MCV MCH MCHC RDW Plt Count MPV Prelim Diff (Auto) Neut % (Auto) Lymph % (Auto) [place] % (Auto) Eos % (Auto) Baso % (Auto) Neut # (Auto) Lymph # (Auto) [place] # (Auto) Eos # (Auto) Baso # (Auto) WBC Differential Differential Comment Sodium Potassium Chloride Carbon Dioxide Anion Gap BUN Creatinine Estimated GFR POC Glucose 100 110 109 Random Glucose Calcium Ammonia Phenytoin 06/27/18 06/27/18 06/27/18 20:37 18:41 18:41 WBC 5.5 RBC 3.72 L Hgb 11.0 L Hct 34.4 L MCV 92.5 MCH 29.7 MCHC 32.1 RDW 15.5 Plt Count 48 L MPV 13.0 H Prelim Diff (Auto) Zipper Set[employer] Lock[employer]ch Neut % (Auto) 54.2 Lymph % (Auto) 29.6 [place] % (Auto) 8.7 H Eos % (Auto) 7.2 H Baso % (Auto) 0.3 Neut # (Auto) 3.0 Lymph # (Auto) 1.6 [place] # (Auto) 0.5 Eos # (Auto) 0.4 Baso # (Auto) 0.0 WBC Differential . Differential Comment Auto diff final Sodium Potassium Chloride Carbon Dioxide Anion Gap BUN Creatinine Estimated GFR POC Glucose 98 Random Glucose Calcium Ammonia 45 H Phenytoin 06/27/18 06/27/18 06/27/18 18:41 17:23 11:54 WBC RBC Hgb Hct MCV MCH MCHC RDW Plt Count MPV Prelim Diff (Auto) Neut % (Auto) Lymph % (Auto) [place] % (Auto) Eos % (Auto) Baso % (Auto) Neut # (Auto) Lymph # (Auto) [place] # (Auto) Eos # (Auto) Baso # (Auto) WBC Differential Differential Comment Sodium 149 H Potassium 3.2 L Chloride 117 H Carbon Dioxide 24.6 Anion Gap 7 BUN 17 Creatinine 1.31 H Estimated GFR 49 L POC Glucose 108 126 H Random Glucose 111 H Calcium 7.7 L Ammonia Phenytoin 6.2 L Preliminary micro results at discharge 06/23/18 14:25 Aerobic Blood Culture - Preliminary Blood - Peripheral No growth in 4 days Anaerobic Blood Culture - Preliminary No growth in 4 days 06/23/18 14:30 Aerobic Blood Culture - Preliminary Blood - Peripheral No growth in 4 days Anaerobic Blood Culture - Preliminary No growth in 4 days Impressions ITS Impressions Chest X-Ray 06/23/18 13:40 CONCLUSION: 1. No acute abnormality or significant interval change. Head CT 06/23/18 13:40 CONCLUSION: 1. No acute intracranial abnormality. 2. Redemonstration of remote left MCA territory infarction with encephalomalacia and ex vacuo dilatation of the lateral ventricle. . . Discharge Plan Discharge Disposition Patient Disposition: 03 Discharge to [facility] Discharge Condition Condition: Fair Discharge Order Discharge Orders: Discharge Order (Routine); Ordered 06/28/18 Ordered By: Meet Moy Physicians Team Primary Care Provider: Sean Stein V Attending Provider: Meet Moy Other Providers: Amparo Christensen ; [facility] Rxs /Orders / Referrals /Forms Prescriptions: New cefuroxime axetil 250 mg tablet 250 mg PO BID 3 Days Qty: 6 RF: 0 rifaximin [Xifaxan] 550 mg Tablet 550 mg PO Q12HR 30 Days Qty: 60 RF: 0 Continue pravastatin 20 mg Tablet 20 mg Feeding Tube BID RF: 0 phenytoin [Dilantin Infatabs] 50 mg Tablet,Chewable 125 mg G-Tube TID RF: 0 famotidine 20 mg Tablet 20 mg Feeding Tube BID RF: 0 triamcinolone acetonide 0.1 % Cream 1 applic TOPICAL BID RF: 0 tuberculin PPD [Aplisol] 5 tub. unit /0.1 mL Solution 0.1 ml Intradermal DIRECTED RF: 0 B complex-vitamin C-folic acid [Dialyvite] 100-1 mg Tablet 1 tab PO DAILY RF: 0 ferrous sulfate 325 mg (65 mg iron) Tablet 325 mg Feeding Tube DAILY Qty: 0 RF: 0 carvedilol [Coreg] 12.5 mg tablet 6.25 mg G-Tube BID RF: 0 ipratropium-albuterol 0.5 mg-3 mg(2.5 mg base)/3 mL Solution For Nebulization 3 ml INHALATION Q6-8H PRN (Reason: Shortness Of Breath Or Wheezing) RF: 0 water for injection, sterile Parenteral Solution 300 ml G-Tube Q4HR Qty: 0 RF: 0 mupirocin calcium [Bactroban Nasal] 2 % Ointment 1 applicatio Intranasal BID Qty: 0 RF: 0 Referrals: Sean Stein MD [Primary Care Provider] - See Instructions Status ED Status: Left Department
[2018-06-28] MEDS ORDERED: Phenytoin Susp 100 MG/4 ML UDC G-TUBE ONE (09:04)
[2018-06-28] MEDS ORDERED: Potassium Chloride 25 MEQ Effervescent Tablet G-TUBE ONE (09:05)
[2018-06-28 09:51] VITALS: O2SAT 96
[2018-06-28] MEDS: rifAXIMin 550 MG Tablet PO SCH (10:20)
[2018-06-28] MEDS: Vitamin B Complex/Vit C/Folic Tablet PO SCH (10:21)
[2018-06-28] MEDS: Phenytoin 50 MG Chewable Tablet G-TUBE SCH ×2 (10:22→13:42)
[2018-06-28] MEDS: Mupirocin 2% Nasal Oint Topical Syringe EACH NARE SCH (10:22)
[2018-06-28 12:28] VITALS: BP 116/59; PULSE 82; TEMP 98.1
== END 2018-06-28 15:13 | DRG 682 ==
LOC: NEPI 13:37 → NEDA 16:12 → HIMC 16:50 → N07 06-25 15:31
PROVIDERS: ADMIT Internal Medicine; ATTEND Internal Medicine
CPT/HCPCS: 70450; 71010; 71045; 80048; 80053; 80185; 81001; 82040; 82140; 82436; 82533; 82550; 82570; 82948; 82962; 83605; 83735; 83930; 83935; 84100; 84132; 84133; 84295; 84300; 84443; 84484; 85025; 85610; 86850; 86900; 86901; 87040; 87077; 87086; 87186; 87641; 90765; 93005; 94150; 94640; 94664; 94665; 96365; 97110; 97162; 99291; C9113; J0696; J7030; J7070; P9612